=== PATIENT | female | born 1975 | race Caucasian/White ===

== ENCOUNTER 2017-10-19 14:32 | Outpatient (RCR) | payer OTHER, SELFPAY | END 2017-10-27 23:59 | LOC: NS 14:32 | PROVIDERS: Family Provider Physician Assistant; PCP Physician Assistant; Visit Provider Physician Assistant | DX: Z68.41 Body mass index [BMI] 40.0-44.9, adult (principal); Z71.3 Dietary counseling and surveillance | CPT/HCPCS: 97802 ==

== ENCOUNTER 2017-11-25 14:30 | Outpatient (RCR) | payer OTHER, SELFPAY | END 2017-11-27 23:59 | LOC: NS 14:30 | PROVIDERS: Family Provider Physician Assistant; PCP Physician Assistant; Visit Provider Physician Assistant | DX: Z68.41 Body mass index [BMI] 40.0-44.9, adult (principal); Z71.3 Dietary counseling and surveillance | CPT/HCPCS: 97803 ==

== ENCOUNTER → 2017-12-09 17:09 | Outpatient (CLI) | payer OTHER, SELFPAY | PROVIDERS: Visit Provider Urology | DX: N20.0 Calculus of kidney (principal); N39.0 Urinary tract infection, site not specified | CPT/HCPCS: 87077; 87086; 87088; 87186 ==

== ENCOUNTER → 2017-12-14 13:46 | Outpatient (CLI) | payer OTHER, SELFPAY ==
[2017-12-14 16:04] VITALS: BP 116/66; PULSE 66; RESP 16; TEMP 36.7; O2SAT 100
== END ==
PROVIDERS: Family Provider Physician Assistant; PCP Physician Assistant; Visit Provider Urology
DX: N39.0 Urinary tract infection, site not specified (principal)
CPT/HCPCS: 96365; J7050; A4216

== ENCOUNTER 2017-12-15 07:33 | Outpatient (CLI) | payer OTHER, SELFPAY ==
[2017-12-15 10:30] LABS: Gentamicin,Once Daily Trough < 0.2 ug/mL (<1.0)
[2017-12-15 14:16] VITALS: BP 144/71; PULSE 69; RESP 16; TEMP 37; O2SAT 100
== END 2017-12-15 09:35 | disposition home or self-care (01) ==
LOC: MEDOUTP 07:34 → MS3 07:35
PROVIDERS: Family Provider Physician Assistant; PCP Physician Assistant; Visit Provider Urology
DX: N39.0 Urinary tract infection, site not specified (principal)
CPT/HCPCS: 96365; 36569; 80170; J7050; A4216

== ENCOUNTER → 2017-12-16 14:54 | Outpatient (CLI) | payer OTHER, SELFPAY ==
[2017-12-16 15:02] VITALS: BP 132/69; PULSE 57; RESP 16; TEMP 37
== END ==
PROVIDERS: Family Provider Physician Assistant; PCP Physician Assistant; Visit Provider Urology
DX: N39.0 Urinary tract infection, site not specified (principal)
CPT/HCPCS: 96365; J7050; A4216

== ENCOUNTER 2017-12-17 13:05 | Day surgery (SDC) | payer OTHER, SELFPAY ==
--- NOTE | 2017-12-17 13:10 | RAD_ITS ---
STUDY: X-RAY - ABDOMEN/PELVIS REASON FOR EXAM: Female, 42 years old. History of kidney stones. Previous to be well. TECHNIQUE: Single AP view of the abdomen / pelvis. COMPARISON: None. FINDINGS: There is a moderate amount of colonic fecal material. There is a 1.3 cm rounded calcification overlying the medial aspect of the right mid kidney. This may represent a calculus in the right renal pelvis. Normal soft tissue structures. Normal visualized osseous structures. RAD/Abdomen Single View IMPRESSION: Findings suggestive of a 1.3 cm calculus in the right renal pelvis. Electronically Signed: Benjamin Thompson MD at 13:32 EDT Tel [phone], Service support ,
[2017-12-17 13:43] VITALS: BP 132/86; PULSE 66; RESP 16; TEMP 36.5; O2SAT 96; BMI 39.6
--- NOTE | 2017-12-18 09:48 | PCM.OPRPT ---
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 42-year-old female was taken back to the operating room after smooth induction of general anesthesia she was placed supine on the table her legs were placed in stirrups the vaginal area and urethra were prepped and draped in usual sterile fashion, I went into the bladder through the urethra with a 21 Tamazight rigid cystourethroscope and a 30? lens, I identified the right ureteral orifice and advanced a wire up the right ureter under fluoroscopic guidance could see the wire passed the stone. I then advanced a stent up into the right kidney past the stone I then pulled back and the wire and the stent coiled in the kidney and then coiled in the bladder the bladder was then drained and the patient was then positioned for shockwave lithotripsy. We focused the shockwave machine onto the stone in the right renal pelvis and proceeded with shockwave lithotripsy initially the stone broke up very nicely with fragmentation we did notice some premature ventricular contractions during treatment so we switched to gated treatment. We completed a total of 3000 shockwaves to the stone still could see some small fragments so we added another 500 shocks at a lower power for a total of 3500 shockwaves. At the end of the procedure only could see small little fragments should pass on their own will leave the stent in place with a string for extraction and she will follow-up next week in the office with a KUB and hopefully extract the stone and finished treatment of her E. coli with antibiotics. Type of Anesthesia:: General Drains: 6 fr x 26 cm stent right side. - Admit VTE Documentation VTE Present on Admission: No VTE Mechan Device Prophylaxis: SCD's VTE Pharm Prophylaxis ordered?: No Reason prophylaxis not ordered:: Treatment Not Indicated
== END 2017-12-17 19:39 | disposition home or self-care (01) ==
LOC: SDC 13:07 → AC 13:09
PROVIDERS: Family Provider Physician Assistant; PCP Physician Assistant; Visit Provider Urology
PROC: (CPT 50590; principal; 2017-12-17 14:55)
DX: N20.0 Calculus of kidney (principal); F41.9 Anxiety disorder, unspecified; F32.9 Major depressive disorder, single episode, unspecified; Z79.899 Other long term (current) drug therapy; I10 Essential (primary) hypertension; B96.20 Unspecified Escherichia coli [E. coli] as the cause of diseases classified elsewhere; I49.3 Ventricular premature depolarization
CPT/HCPCS: 50590; 74018; J7120; A4216; C1769; C2617; J2405

== ENCOUNTER 2017-12-18 12:42 | Outpatient (CLI) | payer OTHER, SELFPAY ==
--- NOTE | 2017-12-18 09:48 | PCM.OPRPT ---
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 42-year-old female was taken back to the operating room after smooth induction of general anesthesia she was placed supine on the table her legs were placed in stirrups the vaginal area and urethra were prepped and draped in usual sterile fashion, I went into the bladder through the urethra with a 21 Uzbek rigid cystourethroscope and a 30? lens, I identified the right ureteral orifice and advanced a wire up the right ureter under fluoroscopic guidance could see the wire passed the stone. I then advanced a stent up into the right kidney past the stone I then pulled back and the wire and the stent coiled in the kidney and then coiled in the bladder the bladder was then drained and the patient was then positioned for shockwave lithotripsy. We focused the shockwave machine onto the stone in the right renal pelvis and proceeded with shockwave lithotripsy initially the stone broke up very nicely with fragmentation we did notice some premature ventricular contractions during treatment so we switched to gated treatment. We completed a total of 3000 shockwaves to the stone still could see some small fragments so we added another 500 shocks at a lower power for a total of 3500 shockwaves. At the end of the procedure only could see small little fragments should pass on their own will leave the stent in place with a string for extraction and she will follow-up next week in the office with a KUB and hopefully extract the stone and finished treatment of her E. coli with antibiotics. Type of Anesthesia:: General Drains: 6 fr x 26 cm stent right side. - Admit VTE Documentation VTE Present on Admission: No VTE Mechan Device Prophylaxis: SCD's VTE Pharm Prophylaxis ordered?: No Reason prophylaxis not ordered:: Treatment Not Indicated
[2017-12-18 13:05] VITALS: BP 118/64; PULSE 66; RESP 16; TEMP 37.1; O2SAT 95
[2017-12-18] MEDS: 0.9% NaCl IVPB Med Flush (250 mL) 15 ML IV (13:12)
== END 2017-12-18 14:02 | disposition home or self-care (01) ==
LOC: MEDOUTP 12:43 → MS3 12:48
PROVIDERS: Family Provider Physician Assistant; PCP Physician Assistant; Visit Provider Urology
DX: N39.0 Urinary tract infection, site not specified (principal)
CPT/HCPCS: 96365; J7050

== ENCOUNTER 2017-12-19 12:09 | Outpatient (CLI) | payer OTHER, SELFPAY ==
[2017-12-19] MEDS: 0.9% NaCl IVPB Med Flush (250 mL) 15 ML IV (12:30)
[2017-12-19] MEDS: 0.9% NaCl PICC Flush IV ×2 (12:30→13:36)
[2017-12-19 12:35] VITALS: BP 110/59; PULSE 54; RESP 16; TEMP 36.6; O2SAT 95
--- NOTE | 2017-12-19 13:38 | NURSING ---
PICC line dressing changed d/t the edges of the tegaderm where rolling up.
== END 2017-12-19 13:35 | disposition home or self-care (01) ==
LOC: MS3OUT 12:10 → MS3 12:11 → MS3OUT 12:11 → MS3 12:40
PROVIDERS: Family Provider Physician Assistant; PCP Physician Assistant; Visit Provider Urology
DX: N39.0 Urinary tract infection, site not specified (principal)
CPT/HCPCS: 96365; J7050; A4216

== ENCOUNTER → 2017-12-20 08:32 | Outpatient (CLI) | payer OTHER, SELFPAY ==
[2017-12-20 08:39] VITALS: BP 125/80; PULSE 63; RESP 16; TEMP 36; O2SAT 99; BMI 38.7
== END ==
PROVIDERS: Family Provider Physician Assistant; PCP Physician Assistant; Visit Provider Urology
DX: N39.0 Urinary tract infection, site not specified (principal)
CPT/HCPCS: 96365; J7050; A4216

== ENCOUNTER → 2017-12-23 13:38 | Outpatient (CLI) | payer OTHER, SELFPAY ==
--- NOTE | 2017-12-23 13:40 | RAD_ITS ---
STUDY: X-RAY - ABDOMEN/PELVIS REASON FOR EXAM: Female, 42 years old. Follow-up of kidney stone TECHNIQUE: Single AP view of the abdomen / pelvis. COMPARISON: Previous study of 12/17/2017 FINDINGS: The lung bases are not in the field of view of the study. There is an unremarkable bowel gas pattern. There is no demonstrated free abdominal air. There is a 10 mm calcification overlying the midpole of the right kidney consistent with nephrolithiasis. There is a left ureteral stent appearing in adequate position. Normal soft tissue structures. Normal visualized osseous structures. RAD/Abdomen Single View IMPRESSION: 10 mm calcification overlying the midpole of the right kidney consistent with nephrolithiasis. This appears similar to the prior study. There is a left-sided ureteral stent appearing in adequate position. Electronically Signed: Jason García MD at 22:55 EDT , Service support ,
== END ==
LOC: RAD.FUTURE 13:39 → MEDOUTP 14:39
PROVIDERS: Family Provider Physician Assistant; PCP Physician Assistant; Visit Provider Nurse Practitioner Adult Health
DX: N20.0 Calculus of kidney (principal)
CPT/HCPCS: 74018

== ENCOUNTER 2017-12-24 11:30 | Outpatient (RCR) | payer OTHER, SELFPAY | END 2017-12-27 23:59 | LOC: NS 11:30 | PROVIDERS: Family Provider Physician Assistant; PCP Physician Assistant; Visit Provider Physician Assistant | DX: Z68.41 Body mass index [BMI] 40.0-44.9, adult (principal); Z71.3 Dietary counseling and surveillance | CPT/HCPCS: 97803 ==

== ENCOUNTER 2018-01-04 11:31 | Outpatient (RCR) | payer OTHER, SELFPAY | END 2018-01-27 23:59 | LOC: NS 11:31 | PROVIDERS: Family Provider Physician Assistant; PCP Physician Assistant; Visit Provider Physician Assistant | DX: Z68.41 Body mass index [BMI] 40.0-44.9, adult (principal); Z71.3 Dietary counseling and surveillance | CPT/HCPCS: 97803 ==

== ENCOUNTER → 2018-01-10 16:37 | Outpatient (CLI) | payer OTHER, SELFPAY | PROVIDERS: Family Provider Physician Assistant; PCP Physician Assistant; Visit Provider Urology | DX: R82.99 Other abnormal findings in urine (principal) | CPT/HCPCS: 87086; 87088 ==

== ENCOUNTER 2018-02-24 14:00 | Outpatient (RCR) | payer OTHER, SELFPAY | END 2018-02-26 23:59 | LOC: NS 14:00 | PROVIDERS: Family Provider Physician Assistant; PCP Physician Assistant; Visit Provider Physician Assistant | DX: Z71.3 Dietary counseling and surveillance (principal); Z68.41 Body mass index [BMI] 40.0-44.9, adult | CPT/HCPCS: 97803 ==

== ENCOUNTER 2018-03-10 11:25 | Outpatient (RCR) | payer OTHER, SELFPAY | END 2018-03-29 23:59 | LOC: NS 11:25 | PROVIDERS: Family Provider Physician Assistant; PCP Physician Assistant; Visit Provider Physician Assistant | DX: Z68.41 Body mass index [BMI] 40.0-44.9, adult (principal); Z71.3 Dietary counseling and surveillance | CPT/HCPCS: 97803 ==

== ENCOUNTER 2018-03-30 13:33 | Outpatient (RCR) | payer OTHER, SELFPAY | END 2018-04-20 23:59 | disposition home or self-care (01) | LOC: NS 13:33 | PROVIDERS: Family Provider Physician Assistant; PCP Physician Assistant; Visit Provider Physician Assistant | DX: Z68.41 Body mass index [BMI] 40.0-44.9, adult (principal); Z71.3 Dietary counseling and surveillance | CPT/HCPCS: 97803 ==

== ENCOUNTER → 2018-04-20 15:29 | Outpatient (CLI) | payer OTHER, SELFPAY | PROVIDERS: Family Provider Physician Assistant; PCP Physician Assistant; Visit Provider Nurse Practitioner Adult Health | DX: N20.0 Calculus of kidney (principal) | CPT/HCPCS: 74018 ==

== ENCOUNTER → 2018-04-21 15:52 | Outpatient (CLI) | payer OTHER, SELFPAY | PROVIDERS: Visit Provider Urology | DX: R82.99 Other abnormal findings in urine (principal) | CPT/HCPCS: 87086; 87088 ==

== ENCOUNTER → 2018-04-27 08:25 | Outpatient (CLI) | payer OTHER, SELFPAY | PROVIDERS: Family Provider Physician Assistant; PCP Physician Assistant; Visit Provider Physician Assistant | DX: Z12.31 Encounter for screening mammogram for malignant neoplasm of breast (principal) | CPT/HCPCS: 77063; 77067 ==

== ENCOUNTER → 2018-05-19 17:43 | Outpatient (CLI) | payer OTHER, SELFPAY | PROVIDERS: Family Provider Physician Assistant; PCP Physician Assistant; Visit Provider Urology | DX: R30.0 Dysuria (principal); R31.9 Hematuria, unspecified | CPT/HCPCS: 87086; 87088 ==

== ENCOUNTER 2018-07-18 11:25 | Outpatient (RCR) | payer OTHER, SELFPAY | END 2018-07-29 23:59 | LOC: NS 11:25 | PROVIDERS: Family Provider Physician Assistant; PCP Physician Assistant; Visit Provider Family Medicine | DX: E66.9 Obesity, unspecified (principal); Z68.37 Body mass index [BMI] 37.0-37.9, adult; Z71.3 Dietary counseling and surveillance | CPT/HCPCS: 97802 ==

== ENCOUNTER 2018-08-08 15:33 | Outpatient (RCR) | payer OTHER, SELFPAY | END 2018-08-29 23:59 | LOC: NS 15:33 | PROVIDERS: Family Provider Physician Assistant; PCP Physician Assistant; Visit Provider Family Medicine | DX: E66.9 Obesity, unspecified (principal); Z68.37 Body mass index [BMI] 37.0-37.9, adult; Z71.3 Dietary counseling and surveillance | CPT/HCPCS: 97803 ==

== ENCOUNTER 2018-09-19 10:00 | Outpatient (RCR) | payer OTHER, SELFPAY | END 2018-09-29 23:59 | LOC: NS 10:00 | PROVIDERS: Family Provider Physician Assistant; PCP Physician Assistant; Visit Provider Family Medicine | DX: E66.9 Obesity, unspecified (principal); Z68.37 Body mass index [BMI] 37.0-37.9, adult; Z71.3 Dietary counseling and surveillance | CPT/HCPCS: 97803 ==

== ENCOUNTER 2018-10-19 11:30 | Outpatient (RCR) | payer OTHER, SELFPAY | END 2018-10-27 23:59 | LOC: NS 11:30 | PROVIDERS: Family Provider Physician Assistant; PCP Physician Assistant; Visit Provider Family Medicine | DX: E66.9 Obesity, unspecified (principal); Z68.37 Body mass index [BMI] 37.0-37.9, adult; Z71.3 Dietary counseling and surveillance | CPT/HCPCS: 97803 ==

== ENCOUNTER 2018-11-23 13:00 | Outpatient (RCR) | payer OTHER, SELFPAY | END 2018-11-27 23:59 | LOC: NS 13:00 | PROVIDERS: Family Provider Physician Assistant; PCP Physician Assistant; Visit Provider Family Medicine | DX: E66.9 Obesity, unspecified (principal); Z68.37 Body mass index [BMI] 37.0-37.9, adult; Z71.3 Dietary counseling and surveillance | CPT/HCPCS: 97803 ==

== ENCOUNTER 2018-12-21 09:45 | Outpatient (RCR) | payer OTHER, SELFPAY | END 2018-12-27 23:59 | LOC: NS 09:45 | PROVIDERS: Family Provider Physician Assistant; PCP Physician Assistant; Visit Provider Family Medicine | DX: E66.9 Obesity, unspecified (principal); Z68.37 Body mass index [BMI] 37.0-37.9, adult; Z71.3 Dietary counseling and surveillance | CPT/HCPCS: 97803 ==

== ENCOUNTER 2019-01-04 14:06 | Outpatient (RCR) | payer OTHER, SELFPAY | END 2019-01-04 23:59 | disposition home or self-care (01) | LOC: NS 14:06 | PROVIDERS: Family Provider Physician Assistant; PCP Physician Assistant; Visit Provider Family Medicine | DX: E66.9 Obesity, unspecified (principal); Z68.37 Body mass index [BMI] 37.0-37.9, adult; Z71.3 Dietary counseling and surveillance | CPT/HCPCS: 97803 ==

== ENCOUNTER → 2019-05-25 11:06 | Outpatient (CLI) | payer OTHER, SELFPAY ==
--- NOTE | 2019-05-24 13:06 | BI_ITS ---
MAMMOGRAPHY - BILATERAL SCREENING REASON FOR EXAM: Female, 44 years old. Routine annual screening examination. PERTINENT HISTORY: Non-contributory. TECHNIQUE: Digital bilateral breast kassidy (3D mammographic acquisition) in the CC and MLO projections. 2-D mediolateral oblique (MLO) and craniocaudad (CC) views of both breasts were obtained. CAD: Full Field Digital Mammography with Computer Added Detection was performed. COMPARISON: Comparison is made with prior study dated April 27, 2018. FINDINGS: Breast Composition: There are scattered areas of fibroglandular density. There are no dominant masses or suspicious calcifications. No other significant abnormalities are identified. There has been no significant change since the prior study. BI/SCREEN MAMM (CAD) W/KASSIDY BILAT IMPRESSION: Stable bilateral screening mammogram. Yearly follow-up mammogram recommended. (A) ASSESSMENT CATEGORY: BIRADS Category 1: Negative. A letter regarding these results will be sent to the patient by the facility within 30 days. Approximately 10% of breast cancers are not detected by mammography. A normal mammogram should not delay biopsy of a clinically suspicious abnormality. [id number] Electronically Signed: Benjamin Thompson, at 15:26 EDT , Service support ,
== END ==
PROVIDERS: Family Provider Physician Assistant; PCP Physician Assistant; Referring Provider Nurse Practitioner Family; Visit Provider Nurse Practitioner Family
DX: Z12.31 Encounter for screening mammogram for malignant neoplasm of breast (principal)
CPT/HCPCS: 77063; 77067

== ENCOUNTER → 2019-08-04 13:34 | Outpatient (CLI) | payer OTHER, SELFPAY ==
[2019-08-04 14:08] LABS: Hematocrit 42.3 % (37-47); Hemoglobin 14.5 g/dL (12.0-15.0); Mean Corp Hgb Conc 34.3 g/dL (32-36); Mean Corpuscular Hgb 29.7 pg (27.0-32.0); Mean Corpuscular Volume 86.5 fL (81-99); Mean Platelet Vol. 9.7 fl (6.2-12.0); Platelet Count 257 K/mm3 (150-450); RBC Distribution Width CV 11.9 % (11.6-14.6); RBC Distribution Width SD 37.7 fl (35.1-43.9); Red Blood Count 4.89 M/mm3 (4.2-5.4); White Blood Count 5.8 K/mm3 (4.4-11.0)
[2019-08-04 14:24] LABS: Anion Gap 6 (5-15); BUN 15 mg/dL (7-18); Calcium,Total 9.2 mg/dL (8.5-10.1); Chloride 108 mmol/L (98-107); Creatinine, Serum 0.88 mg/dL (0.55-1.02); D-Dimer Quantitative (DVT/PE) 0.35 FEU/ug/m (0.27-0.49); EST Glomerular Filtration Rate 74 mL/min (>60); Est Glom Filt Rate - Afr Amer 89 mL/min (>60); Glucose 100 mg/dL (74-106); Partial Thromboplast Time 31.8 Seconds (24.1-36.2); Potassium 3.9 mmol/L (3.5-5.1); Prothrombin Time (Protime)PT. 13.4 SECONDS (11.7-14.9); Sodium Level 140 mmol/L (136-145)
--- NOTE | 2019-08-04 14:48 | EKG12_ITS ---
Test Reason : CP Blood Pressure : / mmHG Vent. Rate : 049 BPM Atrial Rate : 049 BPM P-R Int : 154 ms QRS Dur : 102 ms QT Int : 434 ms P-R-T Axes : 022 011 015 degrees QTc Int : 392 ms Marked sinus bradycardia Abnormal ECG Confirmed by SOURAV HILLIARD, KEIKO ([id number]), editor magazine KIRILL CHANCE ([id number]) on 08/06/2019 12:08:13 PM Referred By: Hari Moss Confirmed By:MARIIA BENJAMIN MD
--- NOTE | 2019-08-04 14:49 | RAD_ITS ---
HISTORY: CHEST PAIN ADDITIONAL HISTORY: None provided. COMPARISON: None TECHNIQUE: Frontal and lateral chest radiographs. Number of images including paperwork: 2 FINDINGS: LUNGS AND PLEURA: No consolidation, mass or pleural effusion. CARDIAC SILHOUETTE: Unremarkable. MEDIASTINUM AND JOHN: Unremarkable. UPPER ABDOMEN: Right upper quadrant surgical clips. SKELETON AND SOFT TISSUES: No acute findings. Degenerative changes. OTHER DEVICES AND HARDWARE: None. RAD/Chest PA and Lateral IMPRESSION: No acute cardiopulmonary abnormality. at 2322 Reported and signed by: Celsa Nieto MD Electronically Signed: Celsa Nieto MD at 23:22 EST Tel , Service support ,
== END ==
PROVIDERS: Family Provider Physician Assistant; PCP Physician Assistant; Referring Provider Physician Assistant; Visit Provider Physician Assistant
DX: R07.89 Other chest pain (principal)
CPT/HCPCS: 36415; 71046; 80048; 84484; 85027; 85379; 85610; 85730; 93005

== ENCOUNTER → 2019-10-03 15:02 | Outpatient (CLI) | payer OTHER, SELFPAY ==
[2019-10-03 16:00] LABS: Hematocrit 43.9 % (37-47); Mean Corp Hgb Conc 34.2 g/dL (32-36); Mean Corpuscular Hgb 29.4 pg (27.0-32.0); Mean Corpuscular Volume 86.1 fL (81-99); Mean Platelet Vol. 9.8 fl (6.2-12.0); Platelet Count 221 K/mm3 (150-450); RBC Distribution Width CV 11.7 % (11.6-14.6); RBC Distribution Width SD 37.1 fl (35.1-43.9); White Blood Count 6.1 K/mm3 (4.4-11.0)
[2019-10-03 16:35] LABS: Anion Gap 7 (5-15); BUN 14 mg/dL (7-18); BUN/Creat Ratio 14.8 RATIO (10-20); Calcium,Total 9.6 mg/dL (8.5-10.1); Chloride 104 mmol/L (98-107); Creatinine, Serum 0.95 mg/dL (0.55-1.02); EST Glomerular Filtration Rate 68 mL/min (>60); Est Glom Filt Rate - Afr Amer 82 mL/min (>60); Glucose 102 mg/dL (74-106); Potassium 3.7 mmol/L (3.5-5.1); Sodium Level 136 mmol/L (136-145)
== END ==
PROVIDERS: PCP Physician Assistant; Referring Provider Physician Assistant; Visit Provider Physician Assistant
DX: R30.0 Dysuria (principal); R50.9 Fever, unspecified; R68.89 Other general symptoms and signs
CPT/HCPCS: 36415; 80048; 85027; 87086; 87088; 87186; 87632

== ENCOUNTER → 2020-01-18 06:03 | Outpatient (CLI) | payer OTHER, SELFPAY ==
[2020-01-18 07:43] LABS: Anion Gap 6 (5-15); BUN 18 mg/dL (7-18); BUN/Creat Ratio 21.9 RATIO (10-20); Calcium,Total 9.4 mg/dL (8.5-10.1); Chloride 103 mmol/L (98-107); Creatinine, Serum 0.82 mg/dL (0.55-1.02); EST Glomerular Filtration Rate 80 mL/min (>60); Est Glom Filt Rate - Afr Amer 97 mL/min (>60); Glucose 113 mg/dL (74-106); Potassium 3.7 mmol/L (3.5-5.1); Sodium Level 137 mmol/L (136-145)
[2020-09-10 15:14] VITALS: BMI 39.2
== END ==
PROVIDERS: PCP Physician Assistant; Referring Provider Registered Nurse; Visit Provider Registered Nurse
DX: I10 Essential (primary) hypertension (principal)
CPT/HCPCS: 36415; 80048

== ENCOUNTER → 2020-03-15 15:01 | Outpatient (CLI) | payer OTHER, SELFPAY ==
[2020-03-15 17:08] LABS: Bacteria 0 SEEN /hpf (None Seen); Mucous, Urine 0 SEEN /hpf (<or=2+); Red Blood Cells-Urine 0 SEEN /hpf (0-5)
[2020-03-15 17:30] LABS: Color, Urine Yellow (Yellow); Glucose, Dipstick Normal (Normal); Ketone-Dipstick Negative (Negative); Leukocyte Esterase-Dipstick 25 /ul (Negative); Nitrite-Dipstick Negative (Negative); Occult Blood-Urine Negative /ul (Negative); Protein-Dipstick Negative (Negative); Urine Bilirubin Dipstick Negative (Negative); Urine Clarity Clear (Clear); Urine Urobilinogen Normal (Normal)
[2020-03-15 17:51] LABS: Squamous Epithelial Cells - UA 0-5 SEEN /hpf (5-10); White Blood Cells 0-5 SEEN /hpf (0-5)
== END ==
PROVIDERS: PCP Physician Assistant; Referring Provider Registered Nurse; Visit Provider Registered Nurse
DX: R39.9 Unspecified symptoms and signs involving the genitourinary system (principal)
CPT/HCPCS: 81001; 87086; 87088

== ENCOUNTER → 2020-06-12 14:06 | Outpatient (CLI) | payer OTHER, SELFPAY ==
--- NOTE | 2020-06-12 14:08 | BI_ITS ---
MAMMOGRAPHY - BILATERAL SCREENING REASON FOR EXAM: Female, 45 years old. Routine annual screening examination. PERTINENT HISTORY: Non-contributory. TECHNIQUE: Digital bilateral breast kassidy (3D mammographic acquisition) in the CC and MLO projections. 2-D mediolateral oblique (MLO) and craniocaudad (CC) views of both breasts were obtained. CAD: Full Field Digital Mammography with Computer Added Detection was performed. COMPARISON: Comparison is made with prior examination dated 05/24/2019 and 04/27/2018. FINDINGS: Breast Composition: There are scattered areas of fibroglandular density. There are no dominant masses or suspicious calcifications. No other significant abnormalities are identified. There has been no significant change since the prior study. BI/SCREEN MAMM (CAD) W/KASSIDY BILAT IMPRESSION: Stable bilateral screening mammogram. Yearly follow-up mammogram recommended. (A) ASSESSMENT CATEGORY: BIRADS Category 1: Negative. A letter regarding these results will be sent to the patient by the facility within 30 days. Approximately 10% of breast cancers are not detected by mammography. A normal mammogram should not delay biopsy of a clinically suspicious abnormality. [id number] Electronically Signed: Benjamin Thompson, at 14:53 EDT , Service support ,
== END ==
PROVIDERS: PCP Physician Assistant; Referring Provider Registered Nurse; Visit Provider Registered Nurse
DX: Z12.31 Encounter for screening mammogram for malignant neoplasm of breast (principal)
CPT/HCPCS: 77063; 77067

== ENCOUNTER 2020-07-09 10:45 | Outpatient (RCR) | payer OTHER, SELFPAY ==
--- NOTE | 2019-10-31 16:38 | MASS.EVAL ---
Massage Therapy Evaluation: Initial Evaluation Date: 10/31/2019 /Age: 07 1975, 44 Diagnosis: Back pain Goals: Decrease pain Decrease muscle tension Promote relaxation Assessment: Elizabeth is a good candidate for massage at this time. She responded well to her first treatment. Plan: To be seen one time per month or PRN for a total of 10 one hour sessions.
--- NOTE | 2020-08-15 08:56 | DS.PCM_ITS ---
Massage Therapy Discharge Summary: Initial Evaluation Date: 10/31/2019 Diagnosis: Back Pain No. of Visits: 6 Date of last visit: 07/09/2020 This patient is being discharged from our care at the [facility]. Thank you, Miracle Phillip LMT
== END 2020-07-09 19:00 | disposition home or self-care (01) ==
LOC: MASS 10:45
PROVIDERS: PCP Physician Assistant; Referring Provider Nurse Practitioner Family; Visit Provider Nurse Practitioner Family
DX: M54.2 Cervicalgia (principal)
CPT/HCPCS: 97124

== ENCOUNTER → 2020-09-20 13:58 | Outpatient (CLI) | payer OTHER, SELFPAY ==
[2020-09-10 15:14] VITALS: BMI 39.2
[2020-09-20 15:11] LABS: Bacteria 0 SEEN /hpf (None Seen); Mucous, Urine 0 SEEN /hpf (<or=2+)
[2020-09-20 17:28] LABS: Color, Urine Yellow (Yellow); Glucose, Dipstick Normal (Normal); Ketone-Dipstick Negative (Negative); Leukocyte Esterase-Dipstick 25 /ul (Negative); Nitrite-Dipstick Negative (Negative); Occult Blood-Urine 25 /ul (Negative); Protein-Dipstick 15 mg/dl (Negative); Urine Bilirubin Dipstick Negative (Negative); Urine Clarity Sl. Cloudy (Clear); Urine Urobilinogen Normal (Normal)
[2020-09-20 17:49] LABS: Squamous Epithelial Cells - UA 10-25 SEEN /hpf (5-10); White Blood Cells 5-10 SEEN /hpf (0-5)
[2020-09-20 17:51] LABS: Red Blood Cells-Urine 0-5 SEEN /hpf (0-5)
[2020-09-20 17:53] LABS: Renal Epithelial Cells 0-5 SEEN /hpf (0-5)
== END ==
PROVIDERS: PCP Physician Assistant; Referring Provider Registered Nurse; Visit Provider Registered Nurse
DX: R30.0 Dysuria (principal)
CPT/HCPCS: 81001

== ENCOUNTER → 2020-10-02 14:44 | Outpatient (CLI) | payer OTHER, SELFPAY ==
[2020-09-10 15:14] VITALS: BMI 39.2
[2020-10-02 14:49] LABS: Bacteria 0 SEEN /hpf (None Seen); Mucous, Urine 0 SEEN /hpf (<or=2+); Red Blood Cells-Urine 0 SEEN /hpf (0-5)
[2020-10-02 15:18] LABS: Color, Urine Yellow (Yellow); Glucose, Dipstick Normal (Normal); Ketone-Dipstick Negative (Negative); Leukocyte Esterase-Dipstick Negative /ul (Negative); Nitrite-Dipstick Negative (Negative); Occult Blood-Urine Negative /ul (Negative); Protein-Dipstick Negative (Negative); Urine Bilirubin Dipstick Negative (Negative); Urine Clarity Sl. Cloudy (Clear); Urine Urobilinogen Normal (Normal); Urine pH 6.5 (5.0 - 8.0)
[2020-10-02 15:38] LABS: Squamous Epithelial Cells - UA 0-5 SEEN /hpf (5-10)
[2020-10-02 15:39] LABS: White Blood Cells 0-5 SEEN /hpf (0-5)
== END ==
PROVIDERS: PCP Physician Assistant; Visit Provider Registered Nurse
DX: R30.0 Dysuria (principal)
CPT/HCPCS: 81001; 87086; 87088

== ENCOUNTER → 2020-10-18 08:14 | Outpatient (CLI) | payer OTHER, SELFPAY ==
[2020-09-10 15:14] VITALS: BMI 39.2
[2020-10-18 09:22] LABS: Anion Gap 5 (5-15); BUN 21 mg/dL (7-18); BUN/Creat Ratio 22.8 RATIO (10-20); Chloride 108 mmol/L (98-107); Creatinine, Serum 0.92 mg/dL (0.55-1.02); EST Glomerular Filtration Rate 70 mL/min (>60); Est Glom Filt Rate - Afr Amer 84 mL/min (>60); Follicle Stimulating Hormone 21.6 mIU/mL; Glucose 115 mg/dL (74-106); Potassium 4.3 mmol/L (3.5-5.1); Sodium Level 138 mmol/L (136-145); Thyroid Stim Hormone (TSH) 0.87 uIU/mL (0.358-3.74)
[2020-10-22 03:06] LABS: DHEA Sulfate 96.2 ug/dL (41.2-243.7)
[2020-10-22 09:26] LABS: Estrogen, Total, Serum 75 pg/mL (.)
[2020-10-23 12:18] LABS: 17-Hydroxyprogesterone 16 ng/dL (.)
== END ==
PROVIDERS: PCP Physician Assistant; Referring Provider Registered Nurse; Visit Provider Registered Nurse
DX: L68.0 Hirsutism (principal); E34.9 Endocrine disorder, unspecified; N95.9 Unspecified menopausal and perimenopausal disorder; Z84.2 Family history of other diseases of the genitourinary system; R61 Generalized hyperhidrosis
CPT/HCPCS: 36415; 80048; 82627; 82672; 83001; 83498; 84403; 84443; 82626

== ENCOUNTER → 2020-10-23 15:09 | Outpatient (CLI) | payer OTHER, SELFPAY ==
[2020-09-10 15:14] VITALS: BMI 39.2
--- NOTE | 2020-10-23 15:15 | US_ITS ---
STUDY: ULTRASOUND TRANSVAGINAL CLINICAL: Female, 45 years old. PCOS TECHNIQUE: Transvaginal COMPARISON: None. FINDINGS: Not visualized consistent with hysterectomy Normal right ovary, measuring 3.1 x 3.1 x 2.8 cm. There are multiple follicles without a dominant cyst. Normal left ovary, measuring 3.2 x 2 x 1.7 cm. There are multiple follicles with a dominant cyst measuring 1.4 x 1.3 x 1.4 cm There is no free fluid in the pelvis. US/Transvaginal Non- IMPRESSION: Small left ovarian cyst measuring 1.4 x 1.3 x 1.4 cm status post hysterectomy Electronically Signed: Lorne Bernal MD at 17:39 EST , Service support ,
== END ==
PROVIDERS: PCP Physician Assistant; Visit Provider Registered Nurse
DX: L68.0 Hirsutism (principal); E28.2 Polycystic ovarian syndrome
CPT/HCPCS: 76830

== ENCOUNTER 2020-12-10 10:45 | Outpatient (RCR) | payer OTHER, SELFPAY ==
--- NOTE | 2020-09-09 15:03 | MASS.EVAL ---
Massage Therapy Evaluation: Initial Evaluation Date: 09/03/2020 SUBJECTIVE: Elizabeth is a 45 year old female who was referred to the [facility] facility for a massotherapy evaluation by Kendy Cohen CNP with the diagnosis of neck pain. She presents today with the symptoms of pain, stiffness and tension in the neck, mid back, low back and hips. Elizabeth reports having a past medical history of radiating pain in her neck and right shoulder blade region. She reports having minimal improvement with exercise and stretching over the last few months. OBJECTIVE: Upon observation Elizabeth has some posture issues with her head and shoulders forward from the neutral position in sitting and standing. After examination and palpation, I found Elizabeth to have high muscle tension with tenderness and myofascial restrictions in her sub occipitals, levator scapulae, trapezius, rhomboids, scalenes, and thoracic paraspinals. Her QL?s, lumbar paraspinals, piriformis, glute medius and minimus all were very tight with fascial restrictions, tender points and trigger points. The first treatment consisted of a one hour massage to her upper body with myofascial release, muscle stripping, trigger point compression techniques, and cervical manual traction. ASSESSMENT: I feel that Elizabeth is a good candidate for massotherapy at this time. She had a favorable response to the first treatment with reduction in her muscle aches, pain and tension. She also had improvement in her cervical flexibility and low back flexibility. PLAN: The plan of care was reviewed with the patient. The patient is to be seen on an as needed basis for a total of ten sessions with the recommendation of once every month for a one hour treatment.
--- NOTE | 2021-08-16 12:42 | MASS.DISCH ---
Massage Therapy Discharge Summary: Discharge Date: 08/16/2021 Elizabeth was seen for a massotherapy evaluation on 09/03/2020 with the diagnosis of neck pain. She was treated with four sessions of massage therapy consisting of deep pressure soft tissue techniques, myofascial release and trigger point compression to his cervical, thoracic, lower back and hips. Elizabeth responded well to the therapy by reporting decreased tension and pain throughout her neck, shoulders, lower back, lower extremities and hips. Her goals for therapy were met throughout the treatment sessions. At this time this patient is being discharged from our care at [facility] facility.
== END 2020-12-10 19:00 | disposition home or self-care (01) ==
LOC: MASS 10:45
PROVIDERS: PCP Physician Assistant; Referring Provider Physician Assistant; Visit Provider Physician Assistant
DX: Z00.00 Encounter for general adult medical examination without abnormal findings (principal)
CPT/HCPCS: 97124

== ENCOUNTER 2021-03-20 14:45 | Outpatient (CLI) | payer OTHER, SELFPAY ==
[2021-03-20 09:29] VITALS: BMI 38.9
[2021-03-20 15:02] VITALS: BP 174/82; PULSE 79; RESP 16; TEMP 36.7; O2SAT 97; BMI 38.0
[2021-03-20 15:10] VITALS: BP 131/81; PULSE 69; RESP 16; TEMP 36.9; O2SAT 98
[2021-03-20 15:35] VITALS: BP 132/82; PULSE 70; RESP 16; TEMP 36.7; O2SAT 98
[2021-03-20 15:55] VITALS: BP 133/80; PULSE 69; RESP 16; TEMP 36.7; O2SAT 98
[2021-03-20 16:30] VITALS: BP 128/78; PULSE 71; RESP 16; TEMP 36.6; O2SAT 99
[2021-03-20 16:51] VITALS: BP 142/70; PULSE 70; RESP 16; TEMP 36.9
== END 2021-03-20 17:00 | disposition home or self-care (01) ==
LOC: ICUOUT 14:45
PROVIDERS: PCP Physician Assistant; Referring Provider Nurse Practitioner Acute Care; Visit Provider Nurse Practitioner Acute Care
DX: U07.1 COVID-19 (principal)
CPT/HCPCS: M0243; Q0244

== ENCOUNTER → 2021-06-05 12:47 | Outpatient (CLI) | payer OTHER, SELFPAY ==
--- NOTE | 2021-06-05 12:56 | RAD_ITS ---
STUDY: X-RAY - PELVIS AND RIGHT HIP REASON FOR EXAM: Female, 46 years old. Pain TECHNIQUE: XR Hip Unilateral with Pelvis when performed; 2-3 Views COMPARISON: None. FINDINGS: There is a non-specific bowel gas pattern. Normal visualized soft tissue structures. Normal bilateral iliac wings, sacroiliac joints and visualized sacrum. Normal bilateral superior and inferior pubic rami. Normal pubic symphysis. Normal bilateral ischial tuberosities. Normal visualized femoral head. Normal acetabulum. Normal hip joint. RAD/HIP, UNI W/ Pelvis 2-3 Views IMPRESSION: Normal x-ray examination of the pelvis and hip. Electronically Signed: Magnus Trevizo MD at 21:48 EDT , Service support ,
== END ==
PROVIDERS: PCP Physician Assistant; Referring Provider Orthopaedic Surgery; Visit Provider Orthopaedic Surgery
DX: M25.551 Pain in right hip (principal)
CPT/HCPCS: 73502

== ENCOUNTER → 2021-06-17 16:13 | Outpatient (CLI) | payer OTHER, SELFPAY ==
--- NOTE | 2021-06-17 16:15 | BI_ITS ---
MAMMOGRAPHY - BILATERAL SCREENING REASON FOR EXAM: Female, 46 years old. Routine annual screening examination. PERTINENT HISTORY: Non-contributory. TECHNIQUE: Digital bilateral breast kassidy (3D mammographic acquisition) in the CC and MLO projections. 2-D mediolateral oblique (MLO) and craniocaudad (CC) views of both breasts were obtained. CAD: Full Field Digital Mammography with Computer Added Detection was performed. COMPARISON: Comparison is made with prior study 06/12/2020 05/24/2019. FINDINGS: Breast Composition: There are scattered areas of fibroglandular density. There are no dominant masses or suspicious calcifications. No other significant abnormalities are identified. There has been no significant change since the prior study. BI/SCRN MAMM (CAD)W/KASSIDY BILAT IMPRESSION: Stable bilateral screening mammogram. Yearly follow-up mammogram recommended. (A) ASSESSMENT CATEGORY: BIRADS Category 1: Negative. A letter regarding these results will be sent to the patient by the facility within 30 days. Approximately 10% of breast cancers are not detected by mammography. A normal mammogram should not delay biopsy of a clinically suspicious abnormality. [id number] Electronically Signed: Benjamin Thompson MD at 8:33 EDT , Service support ,
== END ==
PROVIDERS: PCP Physician Assistant; Visit Provider Registered Nurse
DX: Z12.31 Encounter for screening mammogram for malignant neoplasm of breast (principal)
CPT/HCPCS: 77063; 77067

== ENCOUNTER 2021-06-30 12:00 | Outpatient (RCR) | payer OTHER, SELFPAY ==
--- NOTE | 2021-06-17 14:11 | HP.PTEVAL_ITS ---
Patient's Visit Information CHRISTIN BABB is a 46 year old F referred to Physical Therapy by Dr. Alejandro Graham DO with a diagnosis of R HIP LABRAL STRAIN. Date of Evaluation: 06/17/21 Physical Therapist: Denia Hall PT, Cert MDT - Visit Plan Frequency: 2-3x /Week Duration: 4-6 Weeks Plan: POSTURE CORRECTION/STRENGTHENING, INSTRUCTION IN APPROPRIATE BODY MECHANICS AND ACTIVITY MODIFICATIONS. DLS STARTING WITH A NEUTRAL SPINE PROGRESSING ROM TOLERATED. PIOTR LE ROM, STRETCHING AND STRENGTHENING. HEP INSTRUCTION. Exercises to Consider: Standing Hip Abduction with a Resistance Band. Single Leg Bridge. Partial Squats with a Resistance Band. Single Leg Balance on Unstable Surface. Kneeling Hip Flexor Stretch. Clamshells - Subjective Work/Leisure: MRI AND [employer] AT [facility] AND PRN FOR [facility]. MOSTLY STANDING AND WALKING FOR CT AND A LOT OF SITTING FOR MRI. NOT CURRENTLY OFF WORK. Disability: NO. Present symptoms: RIGHT GROIN PAIN. LOW BACK PAIN. NO LE NUMBNESS OR TINGLING. Present since: APPROX JANUARY 2021. STARTED SORE AND THEN IN FEBRUARY SUDDENLY WORSE WHEN STRADLING PARAPALEGIC. Pain Scale: WORST 8/10, LEAST 2/10. Currently: 2/10. Commenced as a result of: NO APPARENT REASON - CAME ON GRADUALLY. Symptoms at onset: RIGHT GROIN PAIN. Worse: EXTERNALLY ROTATING RIGHT HIP, TRYING TO PUT SHOE AND SOCK ON, GETTING IN/OUT OF CAR, HIP ADD IN STANDING FOR THINGS LIKE GETTING OUT OF THE CAR, ROLLING OVER IN BED TO THE RIGHT. CAN'T GET DOWN ON KNEES AND ADDUCT LEG. CAN NOT CLIP TOE NAILS, FASTEN SANDLES OR GET COMPRESSION SOCKS ON THAT SHE NORMALLY WEARS AT WORK. Better: KEEPING LEG IN NEUTRAL POSITION. TAKING ANTI- INFLAMMATORY FOR ABOUT A WEEK BUT NOT HELPING. Disturbed sleep: YES. Previous history/Previous treatment: NO HISTORY OF RIGHT HIP PROBLEM. 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 NO BACK SURGERY. STARTED GOING TO [facility] A COUPLE MONTHS AGO HOPING IF SHE COULD GET HER LOW BACK FEELING BETTER IT WOULD HELP HER HIP BUT STATES IT DIDN'T HELP HER. NO RIGHT LE SX'S ASSOCIATED WITH BACK PROBLEM. Treatment this episode: WENT FOR PHYSICAL WITH [employer] IN MARCH AND WAS REFERRED TO DR. GRAHAM. ONE VISIT WITH DR. GRAHAM. ORDERED PT AND ANTI-INFLAMMATORY. Coughing/sneezing/straining: NEGATIVE. Gait: I CAN FEEL IT PULL BUT CAN WALK THROUGH IT. DOESN'T REALLY SLOW HER DOWN. Accidents: NO. Unexplained weight loss: NO. Imaging: RIGHT HIP X-RAY - NORMAL. PMH/Recent major surgery: HTN. OTHER: FOLLOW UP PLANNED WITH DR. GRAHAM IN 6 WEEKS. - Objective Sitting/Standing Posture: POOR. Active Correction of posture: NE. Other Observations: INDEP GAIT AND TRANSFERS. Motor deficit: PIOTR LE STRENGTH 5/5 WITH MMT'ING EXCEPT R HIP FLEX 4/5, HIP ABD 4/5, ADD 4/5, RIGHT HIP IR AND ER 3- /5. Sensory deficit: PIOTR LE LIGHT TOUCH SENSATION GROSSLY INTACT AND SYMMETRICAL. ROM deficit: PIOTR LE'S WFL EXCEPT APPROX 50% LIMITED ER AND 25% LIMITED IR RIGHT HIP COMPARED TO LEFT. Dural Signs: NEGATIVE PIOTR LE'S. Lumbar mvmt loss: flex - NIL. ext - MOD. R SG - MOD - INCREASES RIGHT LOW BACK/BUTTOCK PAIN. L SG - MOD. Core strength: POOR. Palpation: NO ACUTE LUMBAR, PELVIC OR HIP TENDERNESS. - Balance/Special Test Scores Lower Extremity Functional Score: 64 - Goals Goal 1:: DECREASE C/O RIGHT HIP PAIN Goal Time Frame: 4-6 Weeks Goal 2:: IMPROVE ADL, CAR TRANSFER, AND SLEEP FUNCTION Goal Time Frame: 4-6 Weeks Goal 3:: INSTRUCT IN PROPHYLAXIS Goal Time Frame: 4-6 Weeks - Anticipated Interventions Patient/Client Instruction: Educate patient on: Condition, Plan of Care, Risk Factors For the Purpose of:: To improve self management Therapeutic Exercise to Include: Strength training, Body mechanics, Postural training, Flexibilty training, Neuromotor development, In an aquatic setting, Dynamic Lumbar Stabilization For the Purpose of:: To decrease pain, To improve muscle performance and motor function, To increase tolerance to activity/condition/position, To improve ability of physical actions for home/community/work/leisure Cryotherapy (ice pack, ice massage): Yes Thermo therapy (hot pack): Yes Ultrasound (thermal/non thermal): Yes For the Purpose of:: To decrease pain, To improve nutrient delivery to tissue Thank you for the opportunity to evaluate your patient. For Medicare and Medicare HMO plans, please review the plan of care and approve it. It will need to be FAXED BACK to us at [phone] for Medicare purposes. For Medicare only, by signing this I certify the plan of care. Please let me know if there are questions or concerns regarding this plan of care. Physician Signature: Date:
--- NOTE | 2021-09-23 12:55 | HP.PT.NRP ---
CHRISTIN BABB was seen in my office for initial evaluation on 06/17/21. The following Plan of Care was established for this patient: Initial Frequency: 2-3x /Week Initial Duration: 4-6 Weeks Patient/Client Instruction: Educate patient on: Condition, Plan of Care, Risk Factors For the Purpose of:: To improve self management Therapeutic Exercise to Include: Strength training, Body mechanics, Postural training, Flexibilty training, Neuromotor development, In an aquatic setting, Dynamic Lumbar Stabilization For the Purpose of:: To decrease pain, To improve muscle performance and motor function, To increase tolerance to activity/condition/position, To improve ability of physical actions for home/community/work/leisure Cryotherapy (ice pack, ice massage): Yes Thermo therapy (hot pack): Yes Ultrasound (thermal/non thermal): Yes For the Purpose of:: To decrease pain, To improve nutrient delivery to tissue This patient was last seen in our office 06/30/21. Pertinent comments regarding their Physical therapy will appear below: This patient has not returned to Physical Therapy and is appropriate to return to MD for further follow-up as needed. At this point I will be discontinuing this patient from physical therapy. I would be happy to see this patient again in the future if found appropriate by the physician. Thank you! Denia Hall, PT, Cert MDT Balance/Gait/Functional tests - Balance/Special Test Scores Lower Extremity Functional Score: 64
== END 2021-06-30 19:00 | disposition home or self-care (01) ==
LOC: PT 12:00
PROVIDERS: PCP Physician Assistant; Referring Provider Orthopaedic Surgery; Visit Provider Orthopaedic Surgery
DX: S76.011D Strain of muscle, fascia and tendon of right hip, subsequent encounter (principal)
CPT/HCPCS: 97110; 97161; 97530

== ENCOUNTER 2021-07-22 05:32 | Day surgery (SDC) | payer OTHER, SELFPAY ==
--- NOTE | 2021-07-22 05:57 | PCM.HP.BLA ---
History and Physical Date of Admission: 07/22/21 This patient was seen back in January 2021 in the office in follow-up of her personal history of colon polyps. Apparently in the interim she could attracted COVID-19. She apparently also had orthopedic work for a labrum tear. She now presents to proceed with the surveillance colonoscopy because of a personal history of colon polyps. 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 Mynor Shelley MD) Back pain Hemorrhoid History of colonic polyps HTN (hypertension) Surgical History (Updated 02/10/21 @ 14:52 by Lila Marks) History of cholecystectomy (~2001) History of colonoscopy (~2015) History of hysterectomy (~2011) History of lithotripsy History of tonsillectomy Family History (Updated 02/10/21 @ 14:55 by Lila Marks) Mother Hypertension Thyroid disorder Social History (Updated 09/10/20 @ 15:56 by CELINE Walls) Smoking Status: Never smoker HPI HPI HPI: CHRISTIN BABB, is a 45 F who presents to the office today for surgical consultation. The patient is referred by Silvana Ward CNP and a written copy of my surgical consult recommendations will return to her. The patient has a personal history of colon polyps. Her most recent colonoscopy was July 29, 2016. That was performed by Dr. Jacinto Neely. At that time no additional polyps were identified. It was recommended that she have a follow-up exam at 5 years. July 29, [address] Jacinto Neely the patient had a combined upper and lower endoscopy. At that time the colon was felt to be normal but because of her personal history of colon polyps follow-up at 5 years was recommended. I do not have the results of her upper endoscopy at that time. Previous evidence suggests that she had a colonoscopy July 08, 2012 with a hyperplastic polyp removed from the rectum. And then prior to that June 21, 2006 a distal transverse colon tubular adenoma was removed. She is having problems currently with moving her bowels on occasion. Feel like the initial portion is very constipated difficult and painful to extrude followed then by diarrhea. Not had any weight loss or abdominal pain. Family history is negative for colon cancer. She otherwise states that she enjoys good health. She does have some mild hypertension. ROS General General: Yes weight change and fatigue; No appetite, colon cancer, breast cancer or weakness HEENT HEENT: No difficulty swallowing, eye injury, eye surgery, swollen glands or hoarseness Endo Endocrine: No thyroid disease, diabetes mellitus, thyroid cancer, Hair loss, heat intolerance or cold intolerance Musc Musculoskeletal: Yes back problems; No arthritis, rheumatoid arthritis, gout or joint pain Cardio Cardiovascular: Yes high blood pressure; No murmur, pacemaker, heart disease, atrial fibrillation, heart attack, heart stent, palpitations, shortness of breat with exertion or chest pain Psych Psychiatric: Yes depression and anxiety; No hearing voices Resp Respiratory: No shortness of breath, No sleep apnea, No cough, No COPD, No asthma, No emphysema and No wheezing Gastro Gastrointestinal: Yes abdominal pain, No nausea or vomiting, Yes diarrhea, Yes constipation, Yes blood in stool, No acid reflux, Yes hemorrhoids, No ulcers, No gallbladder problem and No black,tarry stools Ki Hematologic: No blood thinners, No blood disorders, No bleeding, No anemia and No blood clots Neuro Neurologic: No weakness Exam Const General: cooperative, comfortable and no acute distress Nutritional Appearance: overweight HENDE Head: normal to inspection Eyes General: appearance normal, both eyes and all related structures Neck Neck: normal visual inspection Resp Effort & Inspection: normal respiratory effort Auscultation: clear to auscultation bilaterally Cardio Rate: regular rate Rhythm: regular rhythm GI Palpation: soft and no hepatosplenomegaly Auscultation: normal bowel sounds Musc Cervical Spine: normal cervical lordosis Skin General: no rashes or lesions noted Neuro Cognition: normal cognition Extrem General: no calf tenderness bilaterally Psych Appearance: grossly normal COVID (Procedure Consent) Procedure Criteria Procedure Criteria: Yes Elective The surgeon/proceduralist and patient have discussed in detail the risk of exposure to and/or potential harm posed by the COVID-19 virus with having a surgery/procedure at this time versus the risk of delaying the surgery/procedure. It is not possible to know either the risk of delaying the surgery or procedure or chance of getting an infection with perfect accuracy, but a joint decision was made between the patient and the surgeon/proceduralist to proceed at this time with the scheduled surgery/procedure as indicated on the consent form. Assessment and Plan Assessment and Plan (1) History of colonic polyps: Status: Inactive Plan Details Additional Comments: I recommended the patient a colonoscopy with possible biopsy or polypectomy as indicated. She states that with the monitored anesthesia care she performed better and awoke more quickly and more clearly. We will take expressed careful inspection of the anal rectal area looking for possibility of symptomatic hemorrhoidal disease or fissure or stenosis. Based upon that evaluation can then add further recommendations as to whether further office follow-up or potential future surgical intervention would be appropriate. I appreciate the opportunity of assisting with her surgical care Copy: Silvana Ward, SCOOTER Shelley M.D., F.A.C.S. She is still being bothered by anal rectal discomfort. She thinks it may be hemorrhoids. She is recovered from her COVID-19. She denies need for hospitalization. She was out of work for 6 days. She denies any current shortness of breath or chest pain. No bright red blood per rectum or melena. She did not incur a DVT with her illness. She does have a possible right labrum tear of her hip. She will be obtaining an MRI in the near future. She has had an opportunity to ask and have questions answered. The remainder of her history and physical remains constant. Mynor Shelley M.D., F.A.C.S.
[2021-07-22 06:03] VITALS: BP 132/70; PULSE 71; RESP 16; TEMP 36.1; O2SAT 99; BMI 37.0
[2021-07-22] MEDS: Lactated Ringers 1,000 ML 15 ML IV (06:09)
[2021-07-22 06:51] VITALS: BP 132/70; BP 96/56; PULSE 77; RESP 16; TEMP 35.6; O2SAT 96
--- NOTE | 2021-07-22 06:54 | OP.CCLET_ITS ---
07/22/2021 Hari Moss Re : Colonoscopy procedure for Elizabeth Davila Dear Ajay This procedure was performed on Thursday, July 22, 2021. My impressions and recommendations are as follows: Impressions : - Non-thrombosed internal hemorrhoids and internal hemorrhoids that prolapse with straining, but require manual replacement into the anal canal (Grade III) found on digital rectal exam. - Diverticulosis in the sigmoid colon. - The examination was otherwise normal. - No specimens collected. Recommendations : - Discharge patient to home. - Resume previous diet. - Continue present medications. - Repeat colonoscopy in 10 years for screening purposes. - Return to my office PRN to discuss hemorrhoid procedures (ppH vs surgical) My findings are described in the full procedure note, which is enclosed. If I can be of further assistance, please feel free to contact me at Doctor phone number(s): Work: . Sincerely, Mynor Shelley MD 07/22/2021 6:53:12 AM This report has been signed electronically.
--- NOTE | 2021-07-22 06:54 | OP.COLON_ITS ---
Patient Name: Elizabeth Davila Procedure Date: 07/22/2021 6:14 AM Date of : 1975 Age: 46 Procedure: Colonoscopy Indications: High risk colon cancer surveillance: Personal history of colonic polyps Providers: Mynor Shelley MD Referring MD: Mynor Shelley MD Medicines: See the Anesthesia note for documentation of the administered medications Patient Profile: Last Colonoscopy: June 2012. Complications: No immediate complications. Procedure: Pre-Anesthesia Assessment: - Prior to the procedure, a History and Physical was performed, and patient medications and allergies were reviewed. The patient's tolerance of previous anesthesia was also reviewed. The risks and benefits of the procedure and the sedation options and risks were discussed with the patient. All questions were answered, and informed consent was obtained. Prior Anticoagulants: The patient has taken no previous anticoagulant or antiplatelet agents. ASA Grade Assessment: II - A patient with mild systemic disease. After reviewing the risks and benefits, the patient was deemed in satisfactory condition to undergo the procedure. After I obtained informed consent, the scope was passed under direct vision. Throughout the procedure, the patient's blood pressure, pulse, and oxygen saturations were monitored continuously. The colonoscope was introduced through the anus and advanced to the cecum, identified by appendiceal orifice and ileocecal valve. The colonoscopy was performed without difficulty. The patient tolerated the procedure well. The quality of the bowel preparation was excellent. The ileocecal valve and the appendiceal orifice were photographed. Scope In: 6:34:01 AM Scope Withdrawal Time 0 hours 8 minutes 26 seconds Scope Out: 6:48:09 AM Total Procedure Duration Time 0 hours 14 minutes 8 seconds Findings: The digital rectal exam findings include non-thrombosed internal hemorrhoids and internal hemorrhoids that prolapse with straining, but require manual replacement into the anal canal (Grade III). Scattered diverticula were found in the sigmoid colon. The exam was otherwise without abnormality. Impression: - Non-thrombosed internal hemorrhoids and internal hemorrhoids that prolapse with straining, but require manual replacement into the anal canal (Grade III) found on digital rectal exam. - Diverticulosis in the sigmoid colon. - The examination was otherwise normal. - No specimens collected. Recommendation: - Discharge patient to home. - Resume previous diet. - Continue present medications. - Repeat colonoscopy in 10 years for screening purposes. - Return to my office PRN to discuss hemorrhoid procedures (ppH vs surgical) Procedure Code(s): --- Professional --- 46313, Colonoscopy, flexible; diagnostic, including collection of specimen(s) by brushing or washing, when performed (separate procedure) Diagnosis Code(s): --- Professional --- Z86.010, Personal history of colonic polyps K64.2, Third degree hemorrhoids K57.30, Diverticulosis of large intestine without perforation or abscess without bleeding CPT copyright 2017 [employer]. All rights reserved. The codes documented in this report are preliminary and upon addressing machine operator review may be revised to meet current compliance requirements. Mynor Shelley MD 07/22/2021 6:53:12 AM This report has been signed electronically. Number of Addenda: 0 Note Initiated On: 07/22/2021 6:14 AM
[2021-07-22 06:55] VITALS: BP 117/71; BP 132/70; PULSE 77; RESP 18; O2SAT 97
[2021-07-22 07:00] VITALS: BP 113/76; BP 132/70; PULSE 73; RESP 18; O2SAT 96
[2021-07-22 07:05] VITALS: BP 116/78; BP 132/70; PULSE 68; RESP 18; TEMP 36.1; O2SAT 96
[2021-07-22 07:43] VITALS: BP 132/70
== END 2021-07-22 07:48 ==
LOC: EN 05:34 → AC 05:34
PROVIDERS: PCP Physician Assistant; Referring Provider Physician Assistant; Visit Provider Surgery
PROC: 0DJD8ZZ Inspection of Lower Intestinal Tract, Via Natural or Artificial Opening Endoscopic (ICD-10-PCS; CPT 45378; principal; 2021-07-22 06:25)
DX: K64.2 Third degree hemorrhoids (principal); K57.30 Diverticulosis of large intestine without perforation or abscess without bleeding; I10 Essential (primary) hypertension; F41.9 Anxiety disorder, unspecified; F32.A Depression, unspecified; Z86.16 Personal history of COVID-19; Z86.010 Personal history of colon polyps; Z79.899 Other long term (current) drug therapy
CPT/HCPCS: 45378; 87426; C9803; J7120; J2405

== ENCOUNTER → 2021-08-05 11:42 | Outpatient (CLI) | payer OTHER, SELFPAY ==
--- NOTE | 2021-08-05 11:45 | RAD_ITS ---
NAME: Elizabeth Davila PROCEDURE: IR Hip Arthrogram Injection Procedure WO Anesthesia ACCESSION NUMBER: [id number] CLINICAL HISTORY AND INDICATION: pain Procedure: The procedure with its potential risks was explained to the patient, all the questions and concerns were answered and written informed consent was obtained. A timeout was observed to confirm identity, procedure and site. Localization of the patient''s right hip was performed under fluoroscopy. The patient''s right hipwas prepped and draped in the usual sterile fashion. Local anesthesia was achieved with subcutaneous injection of 1% lidocaine. Under fluoroscopic guidance, a 22-gauge needle was advanced into the right hip joint, and intra-articular location was confirmed with administration of 2 ml of ISOVUE-300 then 12 mL of diluted gadolinium based contrast ( 1:50:50 dilution of gadolinium contrast in Omnipaque 350 and normal saline, respectively ) was injected to the joint space. Intra-articular needle position was confirmed with intermittent fluoroscopy. One image was obtained. Fluoroscopic time: 1 minute and 45 seconds. The patient tolerated the procedure well, with no intermediate complications. The patient was escorted to the MR suite for further imaging. RAD/Arthrogram Hip w/ MRI IMPRESSION: Successful right hip arthrogram with injection of 12 mL of Magnevist. Electronically Signed: Benjamin Thompson MD at 8:58 EST , Service support ,
[2021-08-05] MEDS: Lidocaine 2% (5ml sdv) 5 ML VIAL.MPF INFILT (12:15)
[2021-08-05] MEDS: Iopamidol 10 ML in Syringe 1 EACH 600 ML INTRAARTIC (12:15)
--- NOTE | 2021-08-05 12:16 | MRI_ITS ---
STUDY: MRI RIGHT HIP REASON FOR EXAM: Female, 46 years old. RT GROIN PAIN X ABOUT 5 MONTHS. SHARP PAIN UPON OUTWARD ROTATION OF HIP. TECHNIQUE: TECHNIQUE: Intra-articular injection of 10 ml of gadolinium mixed with additional contrast material was performed by Dr. Moran1, T2, and fat suppressed images were obtained in all three orthogonal planes. COMPARISON: Pelvic x-ray dated June 05, 2021. Right hip arthrogram dated August 05, 2021 FINDINGS: There is intra-articular contrast distention of the right hip articulation, secondary to the gadolinium injection, with adequate capsular distention. No visualized marrow edema or fracture or osteochondral defect. No visualized evidence of avascular necrosis. Normal hip joint without articular joint space narrowing. Normal acetabulum. Tiny truncation tear/foramen seen in the posterior aspect of acetabular labrum as visualized on image 08/22 series 2 near the labral cartilaginous junction. Otherwise normal right acetabular labrum. Normal femoral head. Normal femoral neck and intratrochanteric region. Normal gluteus minimus, medius and iliopsoas tendons and distal insertions. There is no trochanteric, iliopsoas or iliopectineal bursitis. Normal superior and inferior pubic rami. Normal pubic symphysis. Normal ischial tuberosity. Normal origin of the hamstring tendons. Normal visualized iliac wing, sacroiliac joint, and sacral ala. Normal visualized soft tissue structures of the pelvis. MRI/Lower Ext/Jt Only/W Contrast IMPRESSION: 1. Tiny truncation tear/foramen seen in the posterior aspect of acetabular labrum as visualized on image 24 series 2 near the labral cartilaginous junction. Otherwise normal right acetabular labrum. Electronically Signed: Umesh Beach MD at 23:59 EST , Service support ,
== END ==
PROVIDERS: PCP Physician Assistant; Referring Provider Orthopaedic Surgery; Visit Provider Orthopaedic Surgery
DX: S73.191A Other sprain of right hip, initial encounter (principal)
CPT/HCPCS: 27093; 73722; 77002; A9575; Q9967

== ENCOUNTER 2021-09-03 14:13 | Day surgery (SDC) | payer OTHER, SELFPAY ==
[2021-09-03] VITALS (11 sets, daily range): BP systolic 108–173; BP diastolic 66–94; PULSE 76–98; RESP 16; TEMP 36.1–36.7; O2SAT 88–98; BMI 37.5
[2021-09-03 12:24] LABS: Absolute Lymphocyte Count 2.81 X10^3/uL (0.83-4.51); Absolute Neutrophil Count 4.3 X10^3/uL (2.0-7.7); Basophil# 0.05 X10^3/uL; Basophil% 0.6 % (0-1); Eosinophil# 0.17 X10^3/uL; Eosinophils% 2.1 % (0-5); Hematocrit 42.5 % (37-47); Hemoglobin 14.6 g/dL (12.0-15.0); Lymphocyte # 2.81 X10^3/ul (0.83-4.51); Lymphocyte % 35.3 % (19-41); Mean Corp Hgb Conc 34.4 g/dL (32-36); Mean Corpuscular Hgb 30.2 pg (27.0-32.0); Mean Corpuscular Volume 87.8 fL (81-99); Mean Platelet Vol. 9.1 fl (6.2-12.0); Monocyte# 0.59 X10^3/uL; Monocyte% 7.4 % (0-10); NRBC Flagged by Analyzer 0 % (0-5); Neutrophil # 4.33 X10^3/uL (2.7-7.7); Neutrophil % 54.3 % (47-70); Platelet Count 271 K/mm3 (150-450); RBC Distribution Width CV 12.2 % (11.6-14.6); RBC Distribution Width SD 39.1 fl (35.1-43.9); Red Blood Count 4.84 M/mm3 (4.2-5.4)
[2021-09-03 12:30] LABS: Anion Gap 6 (5-15); BUN 16 mg/dL (7-18); BUN/Creat Ratio 20.5 RATIO (10-20); Calcium,Total 9.3 mg/dL (8.5-10.1); Chloride 108 mmol/L (98-107); Creatinine, Serum 0.78 mg/dL (0.55-1.02); EST Glomerular Filtration Rate 85 mL/min (>60); Est Glom Filt Rate - Afr Amer 102 mL/min (>60); Glucose 112 mg/dL (74-106); Sodium Level 142 mmol/L (136-145)
--- NOTE | 2021-09-03 16:37 | PCM.HP.BLA ---
History and Physical Date of Admission: 09/03/21 Intake Visit Reasons: RLQ pain Chief Complaint: RLQ pain Exotic Dancer Required: No Is patient in pain?: No Allergies latex Allergy (Verified 09/03/21 12:54) Swelling, itching Penicillins [PCN] Allergy (Verified 09/03/21 12:54) other Sulfa (Sulfonamide Antibiotics) Allergy (Verified 09/03/21 12:54) Hives, welts Medications sertraline 100 mg PO DAILY 08/30/17 [History Confirmed 09/03/21] lisinopril 10 mg PO QHS 12/14/17 [History Confirmed 09/03/21] ibuprofen 800 mg tablet 800 mg PO TID PRN 02/10/21 [History Confirmed 09/03/21] ascorbic acid (vitamin C) 500 mg tablet 500 mg PO DAILY 06/09/21 [History Confirmed 09/03/21] cholecalciferol (vitamin D3) 125 mcg (5,000 unit) capsule 125 mcg PO DAILY 06/09/21 [History Confirmed 09/03/21] [facility] Medical History (Updated 09/03/21 @ 14:00 by Sheila BERGER, PA-C) Alcohol use Anxiety Back pain Back pain COVID-19 Depression Hemorrhoid History of colonic polyps History of edema History of palpitations HTN (hypertension) Hypertension Non-smoker Right lower quadrant pain Wears glasses Surgical History History of History of cholecystectomy (~2001) History of colonoscopy (~2015) History of hysterectomy (~2011) History of lithotripsy History of tonsillectomy Family History (Updated 09/03/21 @ 13:08 by Kaila Wednesday) Mother Hypertension Thyroid disorder Depression Rheumatoid arthritis Grandmother Parkinsons disease Social History household members: spouse and children housing: house number of children: 3 current occupational status: employed pets and animals: Yes Smoking Status: Never smoker alcohol intake: current alcohol intake frequency: holidays/special occasions only substance use type: does not use what type of physical activity do you participate in: none seatbelt use: always do you feel safe at home: Yes HPI HPI HPI: CHRISTIN BABB, is a 46 F who presents to the office today for right lower quadrant pain. Patient stated she woke up with the pain yesterday. She stated the pain started in the right lower quadrant worse with bending and movement. She notes the pain waxes and wanes. Tolerable with sitting, worse with movement. She denies fever. She states the pain can become stabbing and even radiate into the vaginal area. She states she is bloated. She denies nausea, vomiting. She notes a nagging sensation of the stomach. She denies lack of appetite however she has not consumed much within the last 24 hours. She notes diarrhea. She states she has had loose stools since her colonoscopy with Dr. Shelley on 07/22/21. Patient had hemorrhoids noted on the colonoscopy otherwise colonoscopy was unremarkable. She states she has had a partial hysterectomy. She has 2 remaining ovaries. She states she was being worked up for possible polycystic ovarian syndrome due to an overgrowth of hair. During this work-up, she had a transvaginal u/s which demonstrated a cyst on her left ovary and no cyst on her right. PCOS was ruled out. Other previous abdominal surgeries include cholecystectomy. She has had previous kidney stones with lithotripsy and stenting. She denies the pain feeling similar to this. She denies other health concerns. She does have high blood pressure which has been controlled with medication. She also notes right before her appointment her daughter called stating she tested positive for COVID today. Patient is not vaccinated. She has had COVID 19 in February of 2021. ROS General General: Yes weight change; No appetite, fatigue, colon cancer, breast cancer or weakness HEENT HEENT: No difficulty swallowing, eye injury, eye surgery, swollen glands or hoarseness Endo Endocrine: No thyroid disease, diabetes mellitus, thyroid cancer, Hair loss, heat intolerance or cold intolerance Skin Skin: No rash or changing moles Cardio Cardiovascular: Yes high blood pressure; No murmur, pacemaker, heart disease, atrial fibrillation, heart attack, heart stent, palpitations, shortness of breat with exertion or chest pain Psych Psychiatric: Yes depression and anxiety; No hearing voices Resp Respiratory: No shortness of breath, No sleep apnea, No cough, No COPD, No asthma, No emphysema and No wheezing Gastro Gastrointestinal: Yes abdominal pain, No nausea or vomiting, Yes diarrhea, No constipation, No blood in stool, No acid reflux, Yes hemorrhoids, No ulcers, No gallbladder problem and No black,tarry stools Ki Hematologic: No blood thinners, No blood disorders, No bleeding, No anemia and No blood clots Neuro Neurologic: No system reviewed and no additional complaints, except as documented, No as per HPI, No abnormal gait, No abnormal hearing, No abnormal movements, No abnormal speech, No behavioral changes, No burning sensations, No confusion, No convulsions, No disequilibrium, No dizziness, No localized weakness, No frequent falls, No headache(s), No lack of coordination, No loss of vision, No memory loss, No numbness, No other visual disturbances, No radicular pain, No restless legs, No sensory deficit, No syncope, No tingling, No tremor(s), No weakness and No other Exam Const General: cooperative, healthy appearing and no acute distress HENMT Head: normal to inspection Eyes General: appearance normal, both eyes and all related structures Neck Neck: normal visual inspection Neck mass: No Resp Effort & Inspection: normal respiratory effort Auscultation: clear to auscultation bilaterally Cardio Rate: regular rate Rhythm: regular rhythm GI Inspection: large pannus and obesity Palpation: soft and tender in the RLQ, Lacey's sign positive, obturator sign positive and Rovsing's sign positive Auscultation: hypoactive bowel sounds Skin General: no rashes or lesions noted Neuro General: no focal motor deficits and CN's II-XI intact bilaterally Extrem General: normal to inspection Psych Appearance: grossly normal Affect: normal affect Assessment and Plan Assessment and Plan (1) Right lower quadrant pain: Status: Acute Orders: Orders: Basic Metabolic Profile (BMP) Today CBC W/Diff, Automated Today Plan - Sheila BERGER, PA-C: Dr. Shelley has also evaluated this patient. Recommend CT scan of the abdomen/pelvis. High suspicion for appendicitis versus ovarian cyst. Patient informed us that her daughter just tested positive today for COVID-19. Patient will need COVID tested. If COVID test returns as positive and CT scan does confirm appendicitis, then patient will be treated medically. If COVID test is negative and CT scan confirms appendicitis, then Dr. Shelley will plan to perform a laparoscopic appendectomy. Patient has had the opportunity to ask and have questions answered. Patient verbally understands and agrees with the plan. We will be in touch with the patient once the CT scan results return. She is to not eat or drink anything until she hears from our office. Patient is tentatively scheduled for 18:00 pm today. I have participated in this patient's history and physical examination. Participated in recommending laboratory and CT imaging. On personal review of the imaging believe that the patient has acute appendicitis and this correlates well with her presentation. I recommended the patient a laparoscopic appendectomy. Technique, benefit, risk, alternatives have been discussed. Hopefully based upon clinical exam and imaging this is an early appendicitis and it is possible that we will be able to achieve an outpatient procedure. She has had an opportunity to ask and have questions answered. We will proceed as OR timing permits. Currently in the OR is tied up with after hours persistent elective cases. Mynor Shelley M.D., F.A.C.S.
[2021-09-03] MEDS: Lactated Ringers 1,000 ML 30 ML IV (17:30)
--- NOTE | 2021-09-03 18:05 | APP_PTH ---
PATIENT: CHRISTIN BABB [place] [facility] [id number] AGE/SX: 46/F ROOM: RE09/03/[address]: Sheila Serra PA-C : 1975 BED: DIS: 09/03/2021 SPEC #: [id number] RECD: 09/04/21 10:08 STATUS: CIARRA RUPERT #: [id number] PRETTY: 09/03/21 18:[address]: Mynor Shelley DEPT: SURGICAL PATHOLOGY RECD BY: Марина Schroeder ENTERED: 09/04/21 13:30 SP TYPE: APPENDIX OTHR DR: KAVON Mccracken PA Tissues: Appendix, NOS Procedures: Surgery Specimen Level III HEADER OPERATION: Laparoscopic appendectomy PRE-OP DIAGNOSIS: Acute appendicitis TISSUE SUBMITTED: Appendix MICROSCOPIC DIAGNOSIS Appendix, appendectomy: Acute appendicitis and periappendicitis. See comment. DEBORA:dylan 09/05/2021 COMMENT Acute inflammation predominantly is noted in the lumen and the superficial mucosa. Periappendiceal adipose tissue also shows area of acute inflammation, congestion, hemorrhage and reactive changes. Significant inflammation is not seen in the appendicular wall. Clinical correlation and appropriate follow up are necessary. Case has been reviewed in consultation with Dr. Hendrix who concurs with the above diagnosis. EDDIE:MITCHEL MICROSCOPIC DESCRIPTION Slides are reviewed. GROSS DESCRIPTION Received in fixative is one container labeled with the patient's name and designated appendix. The specimen consists of an appendix measuring 7 cm in length and 1 cm in average diameter. No gross perforations are evident. The fibrofatty tissue at the tip of the appendix is indurated and red-black in color. Serial sections reveal a patent lumen. Animal Trainer Supervisor sections are submitted in two cassettes. / MITCHEL:dylan 09/03/21 TC:2 CPT: 30256
--- NOTE | 2021-09-03 20:00 | DCINST_ITS ---
Discharge Instructions Procedure General Surgery Diet Discharge Diet: Light diet - advance as tolerated (if you have questions about your diet instructions, please talk to you doctor.) Activity Discharge Activity: May Not Drive (for 3-5 days or while taking narcotic pain medicine.) May shower in (days): 1 Lifting Restrictions: 10 pounds Dressing / Incision Call your doctor if your incision/area has: Continuous Slow Oozing, Sudden Increased Bleeding, Increased Pain/ Swelling, Increased Redness and Foul Smelling Discharge Call your doctor if you observe: Fever of 101 or Higher Suture Line Care: Avoid Pulling/Pushing and Avoid Pinching/Bending Additional Dressing/Incision Instructions:: Change or remove dressing in 4 days. Leave steri-strips in place for 1 week. Follow Up Care Please Follow Up With: Mynor Shelley MD When: Call [phone] to make an appointment to be seen in about 10 days. Test Results: Test results from this visit will be discussed in further detail at your follow-up appointment, if applicable. Discharge Plan Admission Attending Provider: Mynor Shelley Primary Care Provider: Hari Moss Consulting Providers: Mynor Shelley ; Sheila Serra Discharge Orders/Prescriptions Prescriptions: No Action cholecalciferol (vitamin D3) 125 mcg (5,000 unit) capsule 125 mcg PO DAILY RF: 0 ascorbic acid (vitamin C) 500 mg tablet 500 mg PO DAILY RF: 0 sertraline 100 MG tablet 100 mg PO DAILY RF: 0 lisinopril 10 MG tablet 10 mg PO QHS RF: 0 ibuprofen 800 mg tablet 800 mg PO TID PRN (Reason: pain/fever) RF: 0 Other Ambulatory Orders: COVID 19 AG RAPID (RN COLLECT) (Routine) Timeframe: [id number] Facility: [facility] - Location: Laboratory Ordered By: Dr. Ruslan Davis
--- NOTE | 2021-09-03 20:58 | PCM.OPRPT ---
Problems Associated Problem List Diagnoses (1) Acute appendicitis: Report of Operation Date of Procedure: 09/03/21 Pre-Operative Diagnosis: Acute appendicitis Post-Operative Diagnosis: Acute appendicitis Surgery/Procedure Performed:: Laparoscopic appendectomy Description of Surgical Findings:: Timeout and informed consent was obtained. 46-year-old female was taken to the operating room. Preoperative therapeutic antibiotics have been ordered clindamycin gentamicin. She underwent general endotracheal ovation esthesia. The abdomen sterilely prepped and draped. 0.5% Marcaine was used as a local anesthetic. Throughout the procedure total 30 cc was used. Skin sites were preanesthetized. Because of previous abdominal surgery I made a vertical supra umbilical incision sharp dissection carried down through the subtenons tissue holding sutures of 0 Vicryl placed the fascia was incised the peritoneum identified and incised 10 mm trocar inserted 10 mm laparoscope inserted and the abdomen was insufflated with CO2 to a pressure of 10 mmHg pressure. No evidence of any trocar injuries. Under direct visualization 5 mm trochars were placed suprapubically in the low mid abdomen. Early acute appendicitis of the tip of the appendix was identified. The mid and more proximal appendix was unremarkable. A window was made in the mesoappendix a standard height 45 mm stapler was used to transect the appendix flush with the cecum. Vascularized height stapler was used to transect the mesoappendix. Further mesoappendix was secured with 2 Hem-o-jewel clips. Hemostasis was intact. The appendix was placed in a retrieval bag. The abdomen was allowed to deflate through an antiviral valve. Trochars were removed. Appendix was removed. The fascia at the umbilicus approximated running 0 Vicryl. Skin edges approximated opted for Monocryl subdermal stitches. Steri-Strips Telfa OpSite dressings applied. Sponge and instrument and needle counts were reported to the surgeon to be correct. Specimen appendix. Drains none. Blood loss minimal. The patient was taken the recovery room in satisfactory addition without apparent complication Mynor Shelley M.D., F.A.C.S. Surgeon: Mynor Shelley Type of Anesthesia: General and Local Anesthesiologist: Max Hall
== END 2021-09-03 23:59 | disposition short-term general hospital (02) ==
LOC: LAB 14:13 → SDC 16:34 → AC 16:35
PROVIDERS: PCP Physician Assistant; Referring Provider Surgery; Visit Provider Physician Assistant
PROC: 0DTJ4ZZ Resection of Appendix, Percutaneous Endoscopic Approach (ICD-10-PCS; CPT 44970; principal; 2021-09-03 17:45)
DX: K35.80 Unspecified acute appendicitis (principal); I10 Essential (primary) hypertension; Z86.16 Personal history of COVID-19; F41.9 Anxiety disorder, unspecified; F32.A Depression, unspecified; Z86.010 Personal history of colon polyps; Z79.899 Other long term (current) drug therapy; Z90.49 Acquired absence of other specified parts of digestive tract
CPT/HCPCS: 49320; 00790; 36415; 80048; 85025; 87426; 88304; C9803; J7120; J2405

== ENCOUNTER 2021-09-03 16:57 | Outpatient (CLI) | payer OTHER, SELFPAY ==
--- NOTE | 2021-09-03 15:36 | CT_ITS ---
STUDY: CT ABDOMEN AND PELVIS WITH CONTRAST REASON FOR EXAM: Female, 46 years old. Abdominal pain RADIATION DOSAGE (If Supplied By Facility): CTDIvol = ( 16.99 ) mGy, DLP = ( 1388.60 ) mGycm TECHNIQUE: Transaxial images were obtained from the dome of the diaphragm to the symphysis pubis without oral contrast. Oral and amp;amp; IV Gastrografin and amp;amp; 100mL Isovue-370 was administered. Sagittal and coronal images were reconstructed. Individualized dose optimization techniques were used for this CT. COMPARISON: 08/31/2017. FINDINGS: The visualized lung bases are unremarkable. The visualized portions of the heart are within normal limits. Fatty liver. Status post cholecystectomy. No significant dilatation of the extrahepatic biliary system. Normal spleen. Normal pancreas. Normal bilateral adrenal glands. 3 mm stone in the right kidney. Normal left kidney. Normal visualized stomach. Normal small intestine. Normal colon. The appendix is visualized and appears normal. Normal abdominal aorta. Normal inferior vena cava. Normal retroperitoneum. Normal urinary bladder. Normal abdominal wall. Normal osseous structures. CT/Abdomen/Pelvis WITH Contrast IMPRESSION: Fatty liver. Nonobstructive right renal stone. Electronically Signed: Jonathan Parsons DO at 16:27 EST Tel [phone], Service support ,
== END 2021-09-03 23:59 | disposition short-term general hospital (02) ==
PROVIDERS: PCP Physician Assistant; Visit Provider Surgery
DX: R10.31 Right lower quadrant pain (principal)
CPT/HCPCS: 74177; Q9967

== ENCOUNTER 2022-03-24 15:29 | Outpatient (CLI) | payer OTHER, SELFPAY ==
[2022-03-24 16:50] LABS: Magnesium 1.7 mg/dL (1.6-2.6); T4 Free Direct 0.93 ng/dL (0.76-1.46); Thyroid Stim Hormone (TSH) 1.49 uIU/mL (0.358-3.74)
== END 2022-03-24 23:59 | disposition home or self-care (01) ==
PROVIDERS: PCP Family Medicine; Referring Provider Registered Nurse; Visit Provider Registered Nurse
DX: R00.2 Palpitations (principal)
CPT/HCPCS: 36415; 83735; 84439; 84443

== ENCOUNTER → 2022-04-10 | Outpatient (CLI) | payer OTHER, SELFPAY | END | disposition home or self-care (01) | LOC: PSN 08:38 | PROVIDERS: PCP Family Medicine; Referring Provider Registered Nurse; Visit Provider Registered Nurse | DX: R00.2 Palpitations (principal) | CPT/HCPCS: 93005 ==

== ENCOUNTER → 2022-04-20 | Outpatient (CLI) | payer OTHER, SELFPAY ==
--- NOTE | 2022-04-20 13:53 | ECHOCS_ITS ---
Reason For Study: PALP Procedure This was a 2D Doppler, Color Flow transthoracic echocardiogram. The study was technically difficult. Contrast injection was performed. Exam performed in department. Left Ventricle Based upon the 2D echocardiographic and contrast enhanced images obtained there appears to be grossly normal left ventricular size, wall motion, and systolic function. The estimated ejection fraction is 65 %. No evidence for diastolic dysfunction. Right Ventricle Normal RV size. Normal systolic function. Atria Normal left atrium. Normal right atrium. No doppler evidence for ASD. Mitral Valve There is mild to moderate mitral annular calcification. Extension of the mitral annular calcification onto the base of the posterior mitral valve leaflet. Trivial mitral valve insufficiency. Tricuspid Valve Normal tricuspid valve. Trivial tricuspid valve insufficiency. Right ventricular systolic pressure estimated to be 35 mmHg. Aortic Valve Trisinus/trileaflet aortic valve. Normal aortic valve. Pulmonic Valve The pulmonic valve is not well visualized. Great Vessels Normal sized aortic root. Pericardium/Pleural No pericardial effusion. Medication 22 gauge I.V. with prn adaptor inserted into left arm. Diluted definity 2ml given slow IV push to enhance endocardial definition. MMode/2D Measurements & Calculations LVIDd: 5.1 cm IVSd: 0.90 cm Ao root diam: 2.8 cm LVIDs: 3.6 cm LVPWd: 0.69 cm RVDd: 2.8 cm FS: 30.3 % LAV(MOD-bp): 57.4 ml LVAd ap4: 33.8 cm2 SV(MOD-sp4): 75.3 ml LAV(MOD-sp2): 62.0 ml LVLd ap4: 8.5 cm LAV(MOD-sp4): 49.2 ml EDV(MOD-sp4): 108.7 ml EDV(sp4-el): 114.3 ml LVAs ap4: 16.1 cm2 LVLs ap4: 6.5 cm ESV(MOD-sp4): 33.4 ml ESV(sp4-el): 33.7 ml EF(MOD-sp4): 69.3 % EF(sp4-el): 70.5 % SV(sp4-el): 80.6 ml LA A4 area: 18.7 cm2 LA dimension(2D): 3.9 cm RA A4 area: 15.1 cm2 Time Measurements MV dec time: 0.20 sec Doppler Measurements & Calculations MV E max wilfred: 105.8 cm/sec Lat Peak E' Wilfred: 17.2 cm/sec Med Peak E' Wilfred: 16.0 cm/sec MV A max wilfred: 86.0 cm/sec E/E' lat: 6.2 E/E' med: 6.6 MV E/A: 1.2 MV V2 max: 110.0 cm/sec MV dec slope: 538.3 cm/sec2 Ao V2 max: 178.8 cm/sec MV max P.8 mmHg Ao max P.8 mmHg MV V2 mean: 62.6 cm/sec Ao V2 mean: 117.8 cm/sec MV mean P.8 mmHg Ao mean P.5 mmHg MV V2 VTI: 39.7 cm Ao V2 VTI: 40.7 cm LV V1 max: 148.4 cm/sec PA V2 max: 132.6 cm/sec TR max wilfred: 283.1 cm/sec LV V1 max P.8 mmHg PA V2 mean: 86.2 cm/sec TR max P.1 mmHg LV V1 mean P.4 mmHg LV V1 mean: 97.1 cm/sec LV V1 VTI: 32.4 cm ECHO/Echo Complete W/ Contrast Interpretation Summary The study was technically difficult. Contrast injection was performed. Based upon the 2D echocardiographic and contrast enhanced images obtained there appears to be grossly normal left ventricular size, wall motion, and systolic function. The estimated ejection fraction is 65 %. There is mild to moderate mitral annular calcification. Extension of the mitral annular calcification onto the base of the posterior mi tral valve leaflet. Trivial mitral valve insufficiency. Trivial tricuspid valve insufficiency. Right ventricular systolic pressure estimated to be 35 mmHg. No evidence for diastolic dysfunction. Ordering Physician: Silvana Ward Referring Physician: Silvana Ward Performed By: Malu Gan RCS
== END | disposition home or self-care (01) ==
LOC: CVS 13:51
PROVIDERS: PCP Family Medicine; Referring Provider Registered Nurse; Visit Provider Registered Nurse
DX: R00.2 Palpitations (principal)
CPT/HCPCS: 93306; Q9957; A4216; C8929

== ENCOUNTER → 2022-06-19 | Outpatient (CLI) | payer OTHER, SELFPAY ==
--- NOTE | 2022-06-19 12:09 | BI_ITS ---
MAMMOGRAPHY - BILATERAL SCREENING 3-D TOMOSYNTHESIS REASON FOR EXAM: Female, 47 years old. Routine survey PERTINENT HISTORY: No significant family history. TECHNIQUE: 2-D mammograms and 3-D Tomosynthesis of the breast (s) were performed. CAD was performed. COMPARISON: 06/12/2020 FINDINGS: The breast composition is composed of scattered fibroglandular density. Scattered benign calcifications are seen. No dense spiculated masses or suspicious microcalcifications are identified. No architectural distortion is identified. There is no skin thickening or retraction. There has been no significant change since the prior study. BI/SCRN MAMM (CAD)W/KASSIDY BILAT IMPRESSION: No mammographic signs of malignancy. Routine yearly mammograms recommended. ASSESSMENT CATEGORY: BIRADS Category 1: Negative. A letter regarding these results will be sent to the patient by the facility within 30 days. FOLLOW UP RECOMMENDATION: Yearly follow up mammogram recommended. (A) Approximately 10% of breast cancers are not detected by mammography. A normal mammogram should not delay biopsy of a clinically suspicious abnormality. Electronically Signed: Meliton Bustos MD at 13:00 EDT ,
== END | disposition home or self-care (01) ==
LOC: OPBI 12:08
PROVIDERS: PCP Family Medicine; Visit Provider Physician Assistant
DX: Z12.31 Encounter for screening mammogram for malignant neoplasm of breast (principal)
CPT/HCPCS: 77063; 77067

== ENCOUNTER → 2022-08-26 | Outpatient (CLI) | payer OTHER, SELFPAY ==
--- NOTE | 2022-08-26 16:48 | STRESSREP ---
Stress Test Report Date: 08-26-2022 Procedure: Exercise tolerance test Indications: Chest pain, cardiac ectopy, PACs/PVCs Consent: Per the patient Procedure: The patient exercised on a Jaison protocol for 7 minutes and 15 seconds completing Stage II and 1 minute and 15 seconds of Stage III achieving a peak heart rate of 166 bpm (95% predicted maximal heart rate) with a resting blood pressure of 122/84 mmHg and a peak blood pressure 178/72 mmHg and a peak MET capacity of approximately 9 MET's. The baseline ECG demonstrated normal sinus rhythm. The peak exercise ECG demonstrated somatic/motion artifact with no obvious ECG changes. There were no cardiac dysrhythmias pretest, during exercise, or recovery. The functional capacity was considered average. The patient had no complaint of chest discomfort during exercise or recovery. The examination was discontinued secondary to dyspnea. Impression: 1. Technically adequate (percent predicted maximal heart rate greater than 85%) exercise tolerance test 2. Peak exercise ECG with somatic/motion artifact with no obvious ECG changes 3. There were no cardiac dysrhythmias during exercise or recovery This note was generated with Common [employer]ensing[employer] software. It may contain incorrect words, spelling, and punctuation that were not noted in checking the note before signing.
== END | disposition home or self-care (01) ==
LOC: CVS 10:48
PROVIDERS: PCP Family Medicine; Referring Provider Internal Medicine Cardiovascular Disease; Visit Provider Internal Medicine Cardiovascular Disease
DX: I49.3 Ventricular premature depolarization (principal); R06.00 Dyspnea, unspecified; R07.9 Chest pain, unspecified; I34.9 Nonrheumatic mitral valve disorder, unspecified; I10 Essential (primary) hypertension; R00.2 Palpitations
CPT/HCPCS: 93017

== ENCOUNTER → 2023-04-06 | Outpatient (CLI) | payer OTHER, SELFPAY ==
[2023-04-06 11:02] LABS: AST(SGOT) 47 U/L (15-37); Alanine Aminotransfer ALT/SGPT 75 U/L (13-56); Albumin, Serum 3.8 g/dL (3.2-5.0); Alkaline Phosphatase 71 U/L (45-117); Bilirubin, Direct 0.21 mg/dL (0.00-0.30); Globulin 3.6 g/dL (2.2-4.2); Protein, Total 7.4 g/dL (6.4-8.2)
[2023-04-07 05:07] LABS: HEPATITIS B SURFACE AG Negative (Negative); Hep C Antibodies Non Reactive (Non Reactive); Hepatitis A IgM Antibody Negative (Negative); Hepatitis B Core AB IgM Negative (Negative)
== END | disposition home or self-care (01) ==
LOC: LAB 09:38
PROVIDERS: PCP Family Medicine; Referring Provider Registered Nurse; Visit Provider Registered Nurse
DX: R74.8 Abnormal levels of other serum enzymes (principal); R73.01 Impaired fasting glucose
CPT/HCPCS: 36415; 80074; 80076; 83036

== ENCOUNTER → 2023-06-22 | Outpatient (CLI) | payer OTHER, SELFPAY ==
--- NOTE | 2023-06-22 07:24 | BI_ITS ---
MAMMOGRAPHY - BILATERAL SCREENING REASON FOR EXAM: Female, 48 years old. Routine annual screening examination. PERTINENT HISTORY: Non-contributory. TECHNIQUE: Digital bilateral breast kassidy (3D mammographic acquisition) in the CC and MLO projections. 2-D mediolateral oblique (MLO) and craniocaudad (CC) views of both breasts were obtained. CAD: Full Field Digital Mammography with Computer Added Detection was performed. COMPARISON: Comparison is made with prior study dated June 19, 2022 and June 17, 2021. FINDINGS: Breast Composition: There are scattered areas of fibroglandular density. There are no dominant masses or suspicious calcifications. No other significant abnormalities are identified. There has been no significant change since the prior study. BI/SCRN MAMM (CAD)W/KASSIDY BILAT IMPRESSION: Stable bilateral screening mammogram. Yearly follow-up mammogram recommended. (A) ASSESSMENT CATEGORY: BIRADS Category 1: Negative. A letter regarding these results will be sent to the patient by the facility within 30 days. Approximately 10% of breast cancers are not detected by mammography. A normal mammogram should not delay biopsy of a clinically suspicious abnormality. [id number] Electronically Signed: Benjamin Thompson MD at 8:37 EDT ,
--- NOTE | 2023-06-22 07:24 | US_ITS ---
STUDY: ABDOMINAL ULTRASOUND - RIGHT UPPER QUADRANT REASON FOR VISIT: Female, 48 years old elevated LFTs TECHNIQUE: Ultrasound evaluation of the right upper quadrant was performed with real-time and static reynolds-scale imaging. TECHNICAL QUALITY: Limited. Examination limited by bowel gas. COMPARISON: CT from 09/03/2021 FINDINGS: Liver: The liver measures 19.4 cm. There is increased echogenicity consistent with fatty infiltration. The bile ducts are within normal limits. There is hepatic color flow. The direction of portal flow is hepatopetal. There is no demonstrated mass lesion. Gallbladder: The patient is status post cholecystectomy. Common Bile Duct (C.B.D.): The common bile duct measures 5.9 mm. Pancreas: Normal size of the head, body and tail of the pancreas. There is normal echogenicity of the pancreas. There is no demonstrated pancreatic mass or cyst. Right Kidney: Normal size of the right kidney. The right kidney measures 11.8 x 6.4 x 4.6 cm. Normal renal cortex. The right cortex measures 1.4 cm. There is no demonstrated renal mass or cyst. There is no right hydronephrosis, there is a nonobstructing 4 mm stone.. US/Abdomen Limited IMPRESSION: Hepatomegaly with diffuse fatty infiltration of the liver, no discrete lesion Previous cholecystectomy Nonobstructing right nephrolithiasis Electronically Signed: Meliton Bustos MD at 14:11 EDT ,
== END | disposition home or self-care (01) ==
PROVIDERS: PCP Registered Nurse; Referring Provider Registered Nurse; Visit Provider Registered Nurse
DX: Z12.31 Encounter for screening mammogram for malignant neoplasm of breast (principal); R74.8 Abnormal levels of other serum enzymes
CPT/HCPCS: 76705; 77063; 77067

== ENCOUNTER → 2023-08-03 | Outpatient (CLI) | payer OTHER, SELFPAY ==
[2023-08-03 12:13] LABS: Bacteria 0 SEEN /hpf (None Seen); Mucous, Urine 0 SEEN /hpf (<or=2+)
[2023-08-03 13:56] LABS: Absolute Lymphocyte Count 2.79 X10^3/uL (0.83-4.51); Absolute Neutrophil Count 4.2 X10^3/uL (2.0-7.7); Basophil# 0.06 X10^3/uL; Basophil% 0.8 % (0-1); Eosinophil# 0.18 X10^3/uL; Eosinophils% 2.3 % (0-5); Hematocrit 44.2 % (37-47); Hemoglobin 15.1 g/dL (12.0-15.0); Lymphocyte # 2.79 X10^3/ul (0.83-4.51); Lymphocyte % 35.1 % (19-41); Mean Corp Hgb Conc 34.2 g/dL (32-36); Mean Corpuscular Hgb 30.2 pg (27.0-32.0); Mean Corpuscular Volume 88.4 fL (81-99); Mean Platelet Vol. 10.5 fl (6.2-12.0); Monocyte# 0.65 X10^3/uL; Monocyte% 8.2 % (0-10); NRBC Flagged by Analyzer 0 % (0-5); Neutrophil # 4.22 X10^3/uL (2.7-7.7); Neutrophil % 53.1 % (47-70); Platelet Count 311 K/mm3 (150-450); RBC Distribution Width SD 38.5 fl (35.1-43.9); White Blood Count 7.9 K/mm3 (4.4-11.0)
[2023-08-03 14:12] LABS: Color, Urine Yellow (Yellow); Glucose, Dipstick Normal (Normal); Ketone-Dipstick Negative (Negative); Leukocyte Esterase-Dipstick 25 /ul (Negative); Nitrite-Dipstick Negative (Negative); Occult Blood-Urine 250 /ul (Negative); Protein-Dipstick 30 mg/dl (Negative); Urine Bilirubin Dipstick Negative (Negative); Urine Clarity Clear (Clear); Urine Urobilinogen Normal (Normal)
[2023-08-03 14:26] LABS: Anion Gap 5 (5-15); BUN 17 mg/dL (7-18); BUN/Creat Ratio 22.2 RATIO (10-20); Calcium,Total 9.4 mg/dL (8.5-10.1); Chloride 104 mmol/L (98-107); Creatinine, Serum 0.77 mg/dL (0.55-1.02); EST Glomerular Filtration Rate 85 mL/min (>60); Est Glom Filt Rate - Afr Amer 103 mL/min (>60); Glucose 108 mg/dL (74-106); Potassium 4.2 mmol/L (3.5-5.1); Sodium Level 135 mmol/L (136-145)
[2023-08-03 14:42] LABS: Squamous Epithelial Cells - UA 0-5 SEEN /hpf (5-10)
[2023-08-03 14:43] LABS: Red Blood Cells-Urine > 100 SEEN /hpf (0-5); White Blood Cells 0-5 SEEN /hpf (0-5)
== END | disposition home or self-care (01) ==
LOC: LAB 12:10
PROVIDERS: PCP Registered Nurse; Referring Provider Registered Nurse; Visit Provider Registered Nurse
DX: R31.9 Hematuria, unspecified (principal)
CPT/HCPCS: 36415; 80048; 81001; 85025; 87086

== ENCOUNTER → 2023-08-06 | Outpatient (CLI) | payer OTHER, SELFPAY ==
--- NOTE | 2023-08-06 15:18 | CT_ITS ---
STUDY: CT ABDOMEN AND PELVIS WITH AND WITHOUT CONTRAST - REASON FOR EXAM: Female, 48 years old. HEMATURIA RADIATION DOSAGE (If Supplied By Facility): CTDIvol = ( 28.30 ) mGy, DLP = ( 4471.86 ) mGycm TECHNIQUE: IV 100mL Isovue-300 was administered. Transaxial images were obtained from the dome of the diaphragm to the symphysis pubis. Multiplanar coronal and sagittal images were reformatted. Individualized Dose Optimization Techniques Were Used For This CT. COMPARISON: FINDINGS: The visualized lung bases are unremarkable. The visualized portions of the heart are within normal limits. Fatty liver. Status post cholecystectomy. No significant dilatation of the extrahepatic biliary system. Normal spleen. Normal pancreas. Normal bilateral adrenal glands. Normal visualized stomach. Normal small intestine. Normal colon. The appendix is not visualized. Normal abdominal aorta. No retroperitoneal adenopathy. Normal right kidney. Possible punctate stone in the left kidney. Normal urinary bladder. Normal abdominal wall. Normal osseous structures. CT/CT Abd/Pelvis W/WO Contrast IMPRESSION: Fatty liver. Nonobstructive punctate left renal stone. Electronically Signed: Jonathan Parsons DO at 16:14 [facility] Reading Location ID and State: [facility] / [place] Tel [phone], Service support ,
== END | disposition home or self-care (01) ==
LOC: CT 15:17
PROVIDERS: PCP Registered Nurse; Referring Provider Registered Nurse; Visit Provider Registered Nurse
DX: R31.9 Hematuria, unspecified (principal)
CPT/HCPCS: 74178; Q9967

== ENCOUNTER → 2023-09-17 | Outpatient (CLI) | payer OTHER, SELFPAY ==
--- NOTE | 2023-09-17 09:55 | VDLE_ITS ---
Reason For Study: BLE Swelling RIGHT LEFT CFV is compressible, spontaneous, phasic, CFV is compressible, spontaneous, phasic, competent and demonstrates normal competent, and demonstrates normal augmentation. augmentation. FV is compressible, spontaneous, phasic, FV is compressible, spontaneous, phasic, competent and demonstrates normal competent and demonstrates normal augmentation. augmentation. POP V is compressible, spontaneous, phasic, POP V is compressible, spontaneous, phasic, competent and demonstrates normal competent and demonstrates normal augmentation. augmentation. T/P Trunk is compressible. T/P Trunk is compressible. PTV is compressible. PTV is compressible. RT PerV is compressible. LT PerV is compressible. SFJ is competent and measures 0.65 cm. SFJ is INCOMPETENT and measures 0.63 cm. GSV proximal thigh measures 0.27 x 0.27 cm. GSV proximal thigh measures 0.27 x 0.28 cm. GSV at knee measures 0.32 x 0.33 cm. GSV at knee measures 0.24 x 0.29 cm. GSV is competent throughout. GSV is competent throughout. SSV at junction is competent and measures SSV at junction is INCOMPETENT for greater 0.61 cm. than 0.5 seconds and measures 0.41 cm. ASV distal calf is INCOMPETENT for greater than 0.5 seconds and measures 0.31 x0.39 cm. Rt Perforating vessel at posterior mid calf measures approximately 0.39cm in long axis and has a reflux time of greater than 0.5 seconds. Corrosion Prevention Metal Sprayer does appear to feed varicosity noted in same area. Procedure Exam performed in department. This is a venous duplex using B-mode, color flow and spectral Doppler. Exam done with patient in reverse trendelenburg position. The exam was diagnostic. VL/Venous Duplex US - Vito Extrem Interpretation Summary Deep veins of the bilateral lower extremities are patent and compressible segme ntally. There is no evidence of bilateral lower extremity deep vein thrombosis. The bilateral great saphenous veins appear patent and compressible segmentally. Positive for reflux in the right accessory saphenous vein and calf chief green officer. Positive for reflux in the left saphenofemoral junction and small saphenous vei n Ordering Physician: Kari Bagley Referring Physician: Silvana Ward Performed By: Scottie Saha RVT
--- OUTSIDE RECORDS SUMMARY | 2023-09-17 10:05 | XMS RPT_ITS | CCD ---
Author Name Unknown Address [address] [place] [address] Organization [facility] Care Team Providers Care Automatic Machine Attendant Name Role Phone Hari Moss PA-C Primary Care Provider Hari MOSS Primary Care Unavailable SILVANA WARD Attending Unavailable Hari MOSS Primary Care Unavailable SILVANA WARD Attending Unavailable Allergies Allergy Classification Reported Allergen(s) Allergy Type Date of Onset Reaction(s) Facility (15 sources) Latex; Translations: [LATEX] Drug Intolerance 3 [facility] (15 sources) Penicillins; Translations: [PENICILLINS] Drug Intolerance 3 [facility] (15 sources) Sulfonamides (Antibiotic); Translations: [SULFA (SULFONAMIDE ANTIBIOTICS)] Drug Intolerance 3 [facility] Medications Current Medications Medication Drug Class(es) Dates Sig (Normalized) Sig (Original) iv contrast (will be provided with radiology test) (1 source) Start: 08-02-2023 End: 08-03-2023 iv contrast (will be provided with radiology test) Indications: Gross hematuria CT Urogram WO/W Inject, intravenously, once for 1 dose.No IV access, insert saline lock prior to the beginning of sedation, infusion, injection of imaging exam. Discontinue saline lock post exam. If Pt. has a central line or IVAD, may access for administration according to line specific nursing protocol. Once exam is complete flush line and de-access according to line specific nursing protocol in the CT contrast administration guidelines link. 1 Each 0 08/02/2023 08/03/2023 Active Completed/Discontinued Medications Medication Drug Class(es) Dates Sig (Normalized) Sig (Original) COMPOUNDED PRESCRIPTION (13 sources) Start: 04-24-2019 End: 06-22-2023 COMPOUNDED PRESCRIPTION Indications: Neck arthralgia Consult to Massage Therapy ICD-10: M54.2 1 Each 0 04/24/2019 06/22/2023 Discontinued Problems Active Problems Problem Classification Problem Date Documented Date Episodic/Chronic Adjustment disorders (2 sources) Adjustment disorder with mixed anxiety and depressed mood; Translations: [Adjustment disorder with mixed anxiety and depressed mood] Chronic Anxiety disorders (15 sources) Anxiety; Translations: [Anxiety disorder, unspecified] Onset: 05-24-2013 05-24-2013 Chronic Cardiac dysrhythmias (1 source) Palpitations; Translations: [Palpitations] Episodic Diabetes mellitus without complication (1 source) Hyperglycemia; Translations: [Impaired fasting glucose] 04-06-2023 Episodic Essential hypertension (15 sources) Essential hypertension; Translations: [Essential (primary) hypertension] Onset: 11-03-2017 11-03-2017 Chronic Genitourinary symptoms and ill-defined conditions (2 sources) Nick hematuria; Translations: [Gross hematuria] Onset: 08-02-2023 08-02-2023 Episodic Heart valve disorders (11 sources) Mitral valve annular calcification; Translations: [Rheumatic mitral valve disease, unspecified] Onset: 04-24-2022 Chronic Mood disorders (14 sources) Depressive disorder; Translations: [Depression] Onset: 05-24-2013 05-24-2013 Chronic Other connective tissue disease (1 source) Lateral epicondylitis of bilateral humerus; Translations: [Lateral epicondylitis, right elbow] 04-06-2023 Episodic Other ear and sense organ disorders (14 sources) Hearing loss in left ear; Translations: [Unspecified hearing loss, left ear] Onset: 09-12-2015 09-12-2015 Chronic Other liver diseases (20 sources) Steatosis of liver; Translations: [Fatty (change of) liver, not elsewhere classified] Onset: 07-15-2016 08-26-2021 Chronic Other liver diseases (1 source) Elevated liver enzymes level; Translations: [Abnormal levels of other serum enzymes] 04-06-2023 Episodic Other nutritional; endocrine; and metabolic disorders (14 sources) Obesity; Translations: [Obesity, unspecified] Onset: 07-15-2016 07-15-2016 Chronic Other screening for suspected conditions (not mental disorders or infectious disease) (3 sources) Patient encounter status; Translations: [Encounter for screening mammogram for malignant neoplasm of breast] Episodic Retinal detachments; defects; vascular occlusion; and retinopathy (14 sources) Retinal lattice degeneration; 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, unspecified eye] Onset: 08-20-2015 08-20-2015 Chronic Past or Other Problems Problem Classification Problem Date Documented Da te Episodic/Chronic Blindness and vision defects (14 sources) Amblyopia of left eye; Translations: [Unspecified amblyopia, left eye] Onset: 08-02-2014 08-02-2014 Episodic Calculus of urinary tract (14 sources) Kidney stone; Translations: [Calculus of kidney] Onset: 09-07-2017 09-07-2017 Episodic Other and unspecified benign neoplasm (14 sources) Polyp of colon; Translations: [Polyp of colon] Onset: 05-24-2013 07-24-2021 Episodic Other circulatory disease (14 sources) Feeling of lump in throat; Translations: [Other specified symptoms and signs involving the circulatory and respiratory systems] Onset: 03-08-2015 03-08-2015 Episodic Other nutritional; endocrine; and metabolic disorders (14 sources) Hyperuricemia; Translations: [Hyperuricemia without signs of inflammatory arthritis and tophaceous disease] Onset: 04-19-2019 04-24-2019 Episodic Sprains and strains (14 sources) Acetabular labrum tear; Translations: [Other sprain of right hip, initial encounter] Onset: 08-09-2021 08-09-2021 Episodic Urinary tract infections (14 sources) Recurrent urinary tract infection; Translations: [Urinary tract infection, site not specified] Onset: 09-07-2017 09-07-2017 Episodic Viral infection (14 sources) COVID-19; Translations: [Other specified viral infection] Onset: 03-22-2021 03-22-2021 Episodic Results Test Name Value Interpretation Reference Range Facil ity Vital Signs Date Time Vital Sign Value Performing Clinician Faci litdaquan 08-02-2023 16:25-0500 Diastolic blood pressure 90 mm[Hg] Silvana Ward APRN.CNP Work Phone: [facility] 08-02-2023 16:25-0500 Heart rate 91 /min Silvana Ward APRN.CNP Work Phone: [facility] 08-02-2023 16:25-0500 Respiratory rate 16 /min Silvana Haagen SECOND FACING BASTER.NURSE RN BSN Work Phone: [facility] 08-02-2023 16:25-0500 SaO2% (BldA) [Mass fraction] 96 % Silvana Haagen SECOND FACING BASTER.NURSE RN BSN Work Phone: [facility] 08-02-2023 16:25-0500 Systolic blood pressure 130 mm[Hg] Silvana Haagen SECOND FACING BASTER.NURSE RN BSN Work Phone: [facility] 04-06-2023 08:02-0400 Body height 169 cm Silvana Haagen SECOND FACING BASTER.NURSE RN BSN Work Phone: [facility] 04-06-2023 08:02-0400 Body weight 111.13 kg Silvana Haagen SECOND FACING BASTER.NURSE RN BSN Work Phone: [facility] 04-06-2023 08:02-0400 Diastolic blood pressure 88 mm[Hg] Silvana Haagen SECOND FACING BASTER.NURSE RN BSN Work Phone: [facility] 04-06-2023 08:02-0400 Heart rate 64 /min Silvana Haagen SECOND FACING BASTER.NURSE RN BSN Work Phone: [facility] 04-06-2023 08:02-0400 Respiratory rate 16 /min Silvana Haagen SECOND FACING BASTER.NURSE RN BSN Work Phone: [facility] 04-06-2023 08:02-0400 SaO2% (BldA) [Mass fraction] 98 % Silvana Haagen SECOND FACING BASTER.NURSE RN BSN Work Phone: [facility] 04-06-2023 08:02-0400 Systolic blood pressure 122 mm[Hg] Silvana Haagen SECOND FACING BASTER.NURSE RN BSN Work Phone: [facility] 03-24-2022 13:01-0400 Body height 170 cm Silvana Haagen SECOND FACING BASTER.NURSE RN BSN Work Phone: [facility] 03-24-2022 13:01-0400 Body weight 111.58 kg Silvana Haagen SECOND FACING BASTER.NURSE RN BSN Work Phone: [facility] 03-24-2022 13:01-0400 Diastolic blood pressure 88 mm[Hg] Silvana Haagen SECOND FACING BASTER.NURSE RN BSN Work Phone: [facility] 03-24-2022 13:01-0400 Heart rate 70 /min Silvana Ward APRN.NURSE RN BSN Work Phone: [facility] 03-24-2022 13:01-0400 Respiratory rate 18 /min Silvana Ward APRN.NURSE RN BSN Work Phone: [facility] 03-24-2022 13:01-0400 SaO2% (BldA) [Mass fraction] 96 % Silvana Ward APRN.NURSE RN BSN Work Phone: [facility] 03-24-2022 13:01-0400 Systolic blood pressure 124 mm[Hg] Silvana Ward APRN.NURSE RN BSN Work Phone: [facility] Encounters Encounter Date Encounter Type Care Provider Facility Start: 08-02-2023 End: 08-03-2023 ambulatory M JANAY MOSS Facility:[facility] Start: 08-02-2023 End: 08-02-2023 Office outpatient visit 25 minutes Silvana Ward APRN.SCOOTER Work Phone: [facility] [place] Procedures Date Procedure Procedure Detail Performing Clinician Start: 08-02-2023 Urnls dip stick/tabl et rgnt auto w/o microscopy Silvana Ward APRN.NURSE RN BSN Work Phone: Start: 04-06-2023 Hemoglobin A1c/Hemoglobin.total in Blood [facility] Provider Start: 06-19-2022 Mammography NORA BERGER-Portia Work Phone: Start: 03-20-2022 Lipid panel [facility] Provid er Start: 03-20-2022 Lipid 1996 panel - S isaut or Plasma NA Moss PA-C Work Phone: Start: 06-12-2020 Mammography NA Moss PA-C Work Phone: Start: 07-29-2016 Colonoscopy NA Moss PA-C Work Phone: Plan of Treatment Date Care Activity Detail Author Start: 09-10-2030 Urine microalbumin profile DTaP,Tdap,Td Vaccine (4 - Td or Tdap) [facility] Start: 03-20-2027 Lipid 1996 panel - Serum or Plasma Lipid Screening [facility] Start: 03-20-2027 LIPID SCREEN LIPID SCREEN [facility] Start: 07-29-2026 Colonoscopy COLONOSCOPY [facility] Start: 07-29-2026 COLORECTAL CANCER SCREENING COLORECTAL CANCER SCREENING [facility] Start: 04-06-2026 DIABETES SCREEN DIABETES SCREEN [facility] Start: 04-06-2026 Diabetes Screening Diabetes Screening [facility] Start: 01-28-2025 Urine microalbumin profile [facility] Start: 08-02-2024 Annual PCP Team Chronic Disease Visit Annual PCP Team Chronic Disease Visit [facility] Start: 06-22-2024 Mammography Mammogram Screening [facility] Start: 04-06-2024 ANNUAL PCP TEAM CHRONIC DISEASE VISIT ANNUAL PCP TEAM CHRONIC DISEASE VISIT [facility] Start: 08-02-2023 End: 11-01-2023 Bacteria identified in Urine by Culture URINE CULTURE Microbiology Routine Gross hematuria Expected: 08/02/2023, Expires: 11/01/2023 [facility] Work Phone: Immunizations Immunization Date Immunization Notes Care Provider Sinan ames 06-22-2022 influenza virus vacc ine, unspecified formulation NA Moss PA-C Work Phone: [facility] 06-13-2019 influenza, seasonal, injectable NA Moss PA-C Work Phone: [facility] 06-05-2016 influenza virus vacc ine, unspecified formulation NA Moss PA-C Work Phone: [facility] 06-12-2015 influenza virus vacc ine, unspecified formulation NA Moss PA-C Work Phone: [facility] 01-28-2015 tetanus toxoid, redu judy diphtheria toxoid, and acellular pertussis vaccine, adsorbed NA Moss PA-C Work Phone: [facility] Payers Date Payer Category Payer Private Health Insurance [facility]ISH[facility]RIZALES [facility] [id number] 2022-Present [phone] [address] [place] [address] O [id number] 2022 Private Health Insurance [id number] 2017 Unknown MMO MMO [employer] xxxx [id number] 2017-Present [address] [place] [address] PPO [id number] 2017 Unknown MMO MMO [employer] xxxx [id number] 2017-Present [address] [place] [address] PPO [id number] Social History Date Type Detail Facility [facility]: [facility] Start: 05-24-2013 Tobacco use and exposure Smoke less tobacco non-user [facility] Start: 09-07-2021 End: 04-06-2023 Alcohol intake Current non-drinker of alcohol (finding) [facility] Start: 04-06-2021 End: 03-24-2022 History SDOH Alcohol Frequency 2 [facility] Start: 04-06-2021 End: 03-24-2022 History SDOH Alcohol Std Drinks 1 [facility] Start: 04-06-2021 History SDOH Social Connections Phone 5 [facility] Start: 04-06-2021 History SDOH Social Connections [employer] 3 [facility] Start: 04-06-2021 History SDOH Social Connections Living 8 [facility] Start: 01-02-2020 Education 16 [facility] Start: 1975 Sex Assigned At Female C [facility] Start: 04-06-2021 End: 08-02-2023 History of Social function [employer] [facility] Start: 04-06-2021 End: 08-02-2023 Social connection and isolation panel [facility] Do you belong to any clubs or organizations such as orthodox groups, unions, fraternal or athletic groups, or school groups? No [facility] Are you now , , , , never or living with a partner? Living with partner [facility] How often to you hav e a drink containing alcohol? Monthly or less [facility] How many standard dr inks containing alcohol do you have on a typical day? 1 or 2 [facility] How often do you hav e 6 or more drinks on 1 occasion? Never [facility] How hard is it for y ou to pay for the very basics like food, housing, medical care, and heating Not hard at all [facility] Do you feel stress - tense, restless, nervous, or anxious, or unable to sleep at night because your mind is troubled all the time - these days [OSQ] Not at all [facility] (I/We) worried wheth er (my/our) food would run out before (I/we) got money to buy more. Never true [facility] Start: 04-17-2020 Gender identity Identifies as female gender (finding) [facility] Start: 04-17-2020 Sexual orientation Heterosexual (fin [place]) [facility] Do you feel stress - tense, restless, nervous, or anxious, or unable to sleep at night because your mind is troubled all the time - these days [OSQ] Only a little [facility] Clinical Notes 03-08-2015 to 08-02-2023 Silvana Ward APRN.NURSE RN BSN - 08/02/2023 4:34 PM ESTTelephone Encounter - Silvana Ward APRN.SCOOTER - 06/22/2023 4:36 PM EDTTelephone Encounter - Mary Broussard Ma - 06/22/2023 11:15 AM EDT Note Date & Type Note Facility 08-02-2023 Note HNO ID: [id number] Author: Silvana Ward APRN.NURSE RN BSN Service: ? Author Type: Nurse Practitioner Type: Progress Notes Filed: 08/02/2023 5:41 PM Note Text: This is a 48 year old female who presents today with: Patient presents with: Hematuria HISTORY OF PRESENT ILLNESS: Christin Davila is a 48 year old female. Patient presents with: Hematuria Pt presents today with hematuria that started yesterday morning. Got up yesterday morning and had blood in the urine. Toilet water was red. Refers that last evening, it had cleared up. This morning had blood in the urine again. No pain. No fevers/chills. No frequency/urgency. Some stress incontinence, but not unusual. She has a hx of stones. Denies any pain resembling any obstructing kidney stones, that she has had in the past. Feels like she is emptying bladder completely. She did have a right upper quadrant ultrasound on 06/22/2023. This showed hepatomegaly with diffuse fatty infiltration of the liver, no discrete lesion. Previous cholecystectomy. Nonobstructing right nephrolithiasis. PAST MEDICAL HISTORY: PAST MEDICAL HISTORY Diagnosis Date Abnormal computed tomography angiography (CTA) of abdomen and pelvis 09/03/2021 CT ab/pel w/con: fatty liver, 3mm stone right kdney Anxiety Benign neoplasm of colon Fatty liver seen on CT Kidney stones last one 2004 Lab test positive for detection of COVID-19 virus 03/19/2021 Sx onset 03/16/21, monoclonal Ab tx per pulmonology [facility] Non morbid obesity 07/15/2016 S/P laparoscopic appendectomy 09/03/2021 PAST SURGICAL HISTORY Procedure Laterality Date ADENOIDECTOMY PRIMARY Adenoidectomy APPENDECTOMY 09/03/2021 DELIVERY ONLY , low transverse CHOLECYSTECTOMY 2001 or 2002 COLONOSCOPY 06/23/2006 adenomatous polyp COLONOSCOPY 07/24/2009 normal COLONOSCOPY FLX DX W/COLLJ SPEC WHEN PFRMD 07/08/2012 hyperplastic COLONOSCOPY FLX DX W/COLLJ SPEC WHEN PFRMD 07/29/2016 Colonoscopy (MAC) DILATION AND CURETTAGE DXAND/THER NONOBSTETRIC Dilation AND curettage ESOPHAGOGASTRODUODENOSCOPY TRANSORAL DIAGNOSTIC 07/29/2016 EGD (MAC) F LITHOTRIPSY X 2 PAST SURGICAL HISTORY OF pilonidal cyst TONSILLECTOMY PRIMARY/SECONDARY AGE 12/> TOTAL ABDOMINAL HYSTERECT W/WO RMVL TUBE OVARY 08/30/2011 due to bleeding, has ovaries ALLERGIES Latex, Penicillins, and Sulfa (Sulfonamide Antibiotics) MEDICATIONS Current Outpatient Medications Medication Sig metFORMIN ER (GLUCOPHAGE XR) 500 mg 24 hr tablet Take 1 tablet by mouth daily with breakfast. sertraline (ZOLOFT) 100 mg tablet Take 1 tablet by mouth once daily. lisinopril (ZESTRIL) 10 mg tablet Take 1 tablet by mouth once daily. No current facility-administered medications for this visit. FAMILY HISTORY Problem Relation Age of Onset Hypertension Mother other (no breast ca) Other other (no colon ca) Other other (no cad) Other Heart Failure Maternal Grandmother other (dm) Maternal Grandmother other (sudden ) Paternal Grandmother Social History Tobacco Use Smoking status: Never Smokeless tobacco: Never Substance Use Topics Alcohol use: No Drug use: No EXAM: BP 130/90 Pulse 91 Resp 16 SpO2 96% PHYSICAL EXAM: General Appearance: Well appearing, alert, in no acute distress, well-hydrated, well nourished.. Skin: Skin color, texture, turgor normal, no suspicious rashes or lesions. Head: Normocephalic, no masses, lesions, tenderness or abnormalities. Eyes: Anicteric sclera. Pupils are equally round and reactive to light. Extraocular movements are intact. . Lungs: Lungs clear to auscultation. No wheezing, rhonchi, rales.. Heart: RRR without murmur, gallop, or rubs. No ectopy. Abdomen: Abdomen soft, non-tender. Bowel sounds normal. No masses, organomegaly, Negative CVA tenderness. Neurologic: Gait normal. ASSESSMENT/PLAN: 1. Gross hematuria - ICD9: 599.71, ICD10: R31.0 New onset of painless gross hematuria. Urine dip here showed blood and protein. She needs to have any further testing done at [facility]. She will get further urinalysis/culture and blood work done there. Get CT urogram. Urology referral placed. - UA DIP, URINE (POC) - URINALYSIS, WITH MICROSCOPIC - URINE CULTURE - CBC + DIFF - CT UROGRAM WO/W IVCON - IV CONTRAST (RADIOLOGY PROCEDURE) - SODIUM CHLORIDE 0.9 % INTRAVENOUS SOLUTION - BASIC METABOLIC PNL - CONSULT TO UROLOGY Discussed with patient that if she has worsening of symptoms (pain, n/v, fever, inability to urinated, etc) she should proceed to the ER. Discussed treatment plan and patient voices understanding. Patient's questions answered appropriately. Medications and potential side effects were discussed and patient voices understanding. Return to the office as scheduled or as needed for worsening/no improvement. Silvana Ward APRN.[facility] 08-02-2023 History of Presen t illness Narrative This is a 48 year old female who presents today with: Patient presents with: Hematuria HISTORY OF PRESENT ILLNESS: Christin Davila is a 48 year old female. Patient presents with: Hematuria Pt presents today with hematuria that started yesterday morning. Got up yesterday morning and had blood in the urine. Toilet water was red. Refers that last evening, it had cleared up. This morning had blood in the urine again. No pain. No fevers/chills. No frequency/urgency. Some stress incontinence, but not unusual. She has a hx of stones. Denies any pain resembling any obstructing kidney stones, that she has had in the past. Feels like she is emptying bladder completely. She did have a right upper quadrant ultrasound on 06/22/2023. This showed hepatomegaly with diffuse fatty infiltration of the liver, no discrete lesion. Previous cholecystectomy. Nonobstructing right nephrolithiasis. PAST MEDICAL HISTORY: PAST MEDICAL HISTORY Diagnosis Date Abnormal computed tomography angiography (CTA) of abdomen and pelvis 09/03/2021 CT ab/pel w/con: fatty liver, 3mm stone right kdney Anxiety Benign neoplasm of colon Fatty liver seen on CT Kidney stones last one 2004 Lab test positive for detection of COVID-19 virus 03/19/2021 Sx onset 03/16/21, monoclonal Ab tx per pulmonology [facility] Non morbid obesity 07/15/2016 S/P laparoscopic appendectomy 09/03/2021 PAST SURGICAL HISTORY Procedure Laterality Date ADENOIDECTOMY PRIMARY <AGE 12 Adenoidectomy APPENDECTOMY 09/03/2021 DELIVERY ONLY , low transverse CHOLECYSTECTOMY 2001 or 2002 COLONOSCOPY 06/23/2006 adenomatous polyp COLONOSCOPY 07/24/2009 normal COLONOSCOPY FLX DX W/COLLJ SPEC WHEN PFRMD 07/08/2012 hyperplastic COLONOSCOPY FLX DX W/COLLJ SPEC WHEN PFRMD 07/29/2016 Colonoscopy (MAC) DILATION & CURETTAGE DX&/THER NONOBSTETRIC Dilation & curettage ESOPHAGOGASTRODUODENOSCOPY TRANSORAL DIAGNOSTIC 07/29/2016 EGD (MAC) F LITHOTRIPSY X 2 PAST SURGICAL HISTORY OF pilonidal cyst TONSILLECTOMY PRIMARY/SECONDARY AGE 12/> TOTAL ABDOMINAL HYSTERECT W/WO RMVL TUBE OVARY 08/30/2011 due to bleeding, has ovaries ALLERGIES Latex, Penicillins, and Sulfa (Sulfonamide Antibiotics) MEDICATIONS Current Outpatient Medications Medication Sig metFORMIN ER (GLUCOPHAGE XR) 500 mg 24 hr tablet Take 1 tablet by mouth daily with breakfast. sertraline (ZOLOFT) 100 mg tablet Take 1 tablet by mouth once daily. lisinopril (ZESTRIL) 10 mg tablet Take 1 tablet by mouth once daily. No current facility-administered medications for this visit. FAMILY HISTORY Problem Relation Age of Onset Hypertension Mother other (no breast ca) Other other (no colon ca) Other other (no cad) Other Heart Failure Maternal Grandmother other (dm) Maternal Grandmother other (sudden ) Paternal Grandmother Social History Tobacco Use Smoking status: Never Smokeless tobacco: Never Substance Use Topics Alcohol use: No Drug use: No EXAM: BP 130/90 Pulse 91 Resp 16 SpO2 96% PHYSICAL EXAM: General Appearance: Well appearing, alert, in no acute distress, well-hydrated, well nourished.. Skin: Skin color, texture, turgor normal, no suspicious rashes or lesions. Head: Normocephalic, no masses, lesions, tenderness or abnormalities. Eyes: Anicteric sclera. Pupils are equally round and reactive to light. Extraocular movements are intact. . Lungs: Lungs clear to auscultation. No wheezing, rhonchi, rales.. Heart: RRR without murmur, gallop, or rubs. No ectopy. Abdomen: Abdomen soft, non-tender. Bowel sounds normal. No masses, organomegaly, Negative CVA tenderness. Neurologic: Gait normal. ASSESSMENT/PLAN: 1. Gross hematuria - ICD9: 599.71, ICD10: R31.0 New onset of painless gross hematuria. Urine dip here showed blood and protein. She needs to have any further testing done at [facility]. She will get further urinalysis/culture and blood work done there. Get CT urogram. Urology referral placed. - UA DIP, URINE (POC) - URINALYSIS, WITH MICROSCOPIC - URINE CULTURE - CBC + DIFF - CT UROGRAM WO/W IVCON - IV CONTRAST (RADIOLOGY PROCEDURE) - SODIUM CHLORIDE 0.9 % INTRAVENOUS SOLUTION - BASIC METABOLIC PNL - CONSULT TO UROLOGY Discussed with patient that if she has worsening of symptoms (pain, n/v, fever, inability to urinated, etc) she should proceed to the ER. Discussed treatment plan and patient voices understanding. Patient's questions answered appropriately. Medications and potential side effects were discussed and patient voices understanding. Return to the office as scheduled or as needed for worsening/no improvement. Silvana Ward APRN.NURSE RN BSN documented in this encounter [facility] 06-22-2023 Miscellaneous Notes Formattin g of this note might be different from the original. Mammo normal. Pt notified via mychart. Silvana Ward APRN.SCOOTER Office received Mammogram results as ordered by Silvana. See results below and advise. Mary Broussard [facility] - Mammography [ID [id number]] documented in this encounter [facility] 05-24-2023 Miscellaneous Notes Formattin g of this note might be different from the original. Form faxed. Leander Swanson LPN Form complete -- please fax back, as requested. Silvana Ward APRN.SCOOTER Pt called and she reports she saw Silvana Ward for her wellness exam on 04/06/23. Pt works for [employer] and has a short form that needs to be completed and faxed back to her. FAX: [phone]. Type of form: 2022 Healthy Living program form Form received via fax When form is completed, Fax form to [phone] Form has been delivered to Silvana Ward's office. Laid on nurses desk. Silvana is out of the office. Pt is asking to have this filled out when she returns. Linda Menjivar LPN documented in this encounter [facility] 05-06-2023 Miscellaneous Notes Formattin g of this note is different from the original. POPULATION HEALTH NAVIGATION OUTREACH Action/I 1st call-LVM and [email or web address] message regarding consult to ORTHOPEDICS. Patient Identified by Name and : NO Outreach Outcome/Action Unable to reach patient: Left message [employer] message sent Did you use a PCP flex slot to schedule this appointment? N/A Reason for Outreach Care Gap or Scheduling/Wellness visits Payer: Payor: AETNA / Plan: AETNA [facility] / Product Type: PPO / Care Gap Reviewed:: Specialty Scheduling Reminder: Reminder note to check Health Maintenance for items below Health Maintenance items due: HEPATITIS B(1 of 3 - 3-dose series) Never done COVID-19 VACCINE(1) Never done BP CONTROLLED (<130/80) due on 05/20/2021 INFLUENZA(1) due on 04/30/2023 MAMMOGRAM due on 06/19/2023 Navigation Signature: Kristi Flowers May 06, 2023 11:20 AM documented in this encounter [facility] 04-06-2023 Note HNO ID: [id number] Author: Silvana Ward APRN.NURSE RN BSN Service: ? Author Type: Nurse Practitioner Type: Progress Notes Filed: 04/07/2023 7:52 AM Note Text: This is a 48 year old female who presents today with: Patient presents with: Yearly Exam HISTORY OF PRESENT ILLNESS: Christin Davila is a 48 year old female. Patient presents with: Yearly Exam Pt presents today for annual. Had labwork and has some concerns. Refers that she did her fasting labwork. Sugar was elevated. Liver enzymes were elevated. Hx of fatty liver. Bilateral elbow pain. Bothering her since 6-12 months. Lateral aspect of elbows. Started in the right elbow and not in both. Left greater than right. Pt is right handed. Used tennis elbow straps. Continues with some abdominal pain. Stepped on a ladder that wasn't fully lowered and then the ladder slid and hit the abdomen. Refers that a few years ago, had a hematoma on the abdomen. Gets twinges of pain. Nothing excruciating. Going to go to [facility] for skin cancer screening. Requesting a referral for in the event she needs any procedures while there. REVIEW OF SYSTEMS GENERAL: No weight loss, malaise or fevers/chills. + fatigue. HEENT: Negative for frequent or significant headaches, No changes in hearing. Worsening vision. NECK: Negative for lumps, goiter, pain and significant neck swelling RESPIRATORY: Negative for cough, hemoptysis, wheezing, dyspnea or shortness of breath CARDIOVASCULAR: Negative for chest pain, leg swelling, orthopnea, or palpitations. Gets some swelling that improves w/ sleeping. GI: No nausea, vomiting. Alternates diarrhea/constipation. No hematochezia/melena. No heartburn or reflux symptoms. Colonoscopy 2020 and 5 year clearance. : No history of dysuria, frequency or incontinence. S/p hyster. MUSCULOSKELETAL: see above. SKIN: Negative for lesions, rash, and itching ENDOCRINE: Negative for cold or heat intolerance, polyuria, polydipsia and goiter NEURO: No history of headaches, syncope, paralysis, seizures or tremors HTN: Patient is compliant with meds Yes Monitors bp at home: will check if she gets a headache. Denies side effects: Yes. Chest pain: No. Dyspnea: No. Edema: some dependent. Palpitations: No. Syncope: No. Headache: No. Dizziness: No. Mood: Will get anxiety, but able to real it back in. PAST MEDICAL HISTORY: PAST MEDICAL HISTORY Diagnosis Date Abnormal computed tomography angiography (CTA) of abdomen and pelvis 09/03/2021 CT ab/pel w/con: fatty liver, 3mm stone right kdney Anxiety Benign neoplasm of colon Fatty liver seen on CT Kidney stones last one 2004 Lab test positive for detection of COVID-19 virus 03/19/2021 Sx onset 03/16/21, monoclonal Ab tx per pulmonology [facility] Non morbid obesity 07/15/2016 S/P laparoscopic appendectomy 09/03/2021 PAST SURGICAL HISTORY Procedure Laterality Date ADENOIDECTOMY PRIMARY Adenoidectomy APPENDECTOMY 09/03/2021 DELIVERY ONLY , low transverse CHOLECYSTECTOMY 2001 or 2002 COLONOSCOPY 06/23/2006 adenomatous polyp COLONOSCOPY 07/24/2009 normal COLONOSCOPY FLX DX W/COLLJ SPEC WHEN PFRMD 07/08/2012 hyperplastic COLONOSCOPY FLX DX W/COLLJ SPEC WHEN PFRMD 07/29/2016 Colonoscopy (MAC) DILATION AND CURETTAGE DXAND/THER NONOBSTETRIC Dilation AND curettage ESOPHAGOGASTRODUODENOSCOPY TRANSORAL DIAGNOSTIC 07/29/2016 EGD (MAC) F LITHOTRIPSY X 2 PAST SURGICAL HISTORY OF pilonidal cyst TONSILLECTOMY PRIMARY/SECONDARY AGE 12/> TOTAL ABDOMINAL HYSTERECT W/WO RMVL TUBE OVARY 08/30/2011 due to bleeding, has ovaries ALLERGIES Latex, Penicillins, and Sulfa (Sulfonamide Antibiotics) MEDICATIONS Current Outpatient Medications Medication Sig sertraline (ZOLOFT) 100 mg tablet Take 1 tablet by mouth once daily. lisinopril (ZESTRIL, PRINIVIL) 10 mg tablet Take 1 tablet by mouth once daily. COMPOUNDED PRESCRIPTION Consult to Massage Therapy ICD-10: M54.2 Current Facility-Administered Medications Medication Dose Route Frequency perflutren lipid microspheres 1.3 mL in NaCl (PF) 0.9% 10 mL injection (DEFINITY) INTRAVENOUS DIRECTED PRN sodium chloride 0.9 % (flush) 10 mL (BD POSIFLUSH) 10 mL INTRAVENOUS DIRECTED PRN FAMILY HISTORY Problem Relation Age of Onset Hypertension Mother other (no breast ca) Other other (no colon ca) Other other (no cad) Other Heart Failure Maternal Grandmother other (dm) Maternal Grandmother other (sudden ) Paternal Grandmother Social History Tobacco Use Smoking status: Never Smokeless tobacco: Never Substance Use Topics Alcohol use: No Drug use: No EXAM: BP 122/88 Pulse 64 Resp 16 Ht 169 cm (5' 6.54 ) Wt 111.1 kg (245 lb) SpO2 98% BMI 38.91 kg/m? PHYSICAL EXAM: General Appearance: Well appearing, alert, in no acute distress, well-hydrated, well nourished.. Skin: Skin color, texture, turgor normal, no nelson (more content not included)... [facility] 04-06-2023 Instructions Silvana Ward APRN.NURSE RN BSN - 04/06/2023 9:04 AM EDT Get the repeat labs. Schedule with ortho. Schedule with dermatology. Schedule ultrasound. Schedule mammogram. Health Promotion: - Eat healthy -- go to [employer] to get started - Have a yearly physical - Mammogram yearly after age 40 - Get at least 30 minutes of physical activity daily - Get at least 7 to 8 hours of sleep each night - Reach and maintain a healthy weight - Get help to quit or don't start smoking - Limit alcohol use to one drink or less - Do not use illegal drugs or misuse prescription drugs - Wear a helmet when riding a bike and wear protective gear for sports - Wear a seatbelt in cars and not text and drive - Wear sunscreen documented in this encounter [facility] 04-06-2023 History of Presen t illness Narrative This is a 48 year old female who presents today with: Patient presents with: Yearly Exam HISTORY OF PRESENT ILLNESS: Christin Davila is a 48 year old female. Patient presents with: Yearly Exam Pt presents today for annual. Had labwork and has some concerns. Refers that she did her fasting labwork. Sugar was elevated. Liver enzymes were elevated. Hx of fatty liver. Bilateral elbow pain. Bothering her since 6-12 months. Lateral aspect of elbows. Started in the right elbow and not in both. Left greater than right. Pt is right handed. Used tennis elbow straps. Continues with some abdominal pain. Stepped on a ladder that wasn't fully lowered and then the ladder slid and hit the abdomen. Refers that a few years ago, had a hematoma on the abdomen. Gets twinges of pain. Nothing excruciating. Going to go to [facility] for skin cancer screening. Requesting a referral for in the event she needs any procedures while there. REVIEW OF SYSTEMS GENERAL: No weight loss, malaise or fevers/chills. + fatigue. HEENT: Negative for frequent or significant headaches, No changes in hearing. Worsening vision. NECK: Negative for lumps, goiter, pain and significant neck swelling RESPIRATORY: Negative for cough, hemoptysis, wheezing, dyspnea or shortness of breath CARDIOVASCULAR: Negative for chest pain, leg swelling, orthopnea, or palpitations. Gets some swelling that improves w/ sleeping. GI: No nausea, vomiting. Alternates diarrhea/constipation. No hematochezia/melena. No heartburn or reflux symptoms. Colonoscopy 2020 and 5 year clearance. : No history of dysuria, frequency or incontinence. S/p hyster. MUSCULOSKELETAL: see above. SKIN: Negative for lesions, rash, and itching ENDOCRINE: Negative for cold or heat intolerance, polyuria, polydipsia and goiter NEURO: No history of headaches, syncope, paralysis, seizures or tremors HTN: Patient is compliant with meds Yes Monitors bp at home: will check if she gets a headache. Denies side effects: Yes. Chest pain: No. Dyspnea: No. Edema: some dependent. Palpitations: No. Syncope: No. Headache: No. Dizziness: No. Mood: Will get anxiety, but able to real it back in. PAST MEDICAL HISTORY: PAST MEDICAL HISTORY Diagnosis Date Abnormal computed tomography angiography (CTA) of abdomen and pelvis 09/03/2021 CT ab/pel w/con: fatty liver, 3mm stone right kdney Anxiety Benign neoplasm of colon Fatty liver seen on CT Kidney stones last one 2004 Lab test positive for detection of COVID-19 virus 03/19/2021 Sx onset 03/16/21, monoclonal Ab tx per pulmonology [facility] Non morbid obesity 07/15/2016 S/P laparoscopic appendectomy 09/03/2021 PAST SURGICAL HISTORY Procedure Laterality Date ADENOIDECTOMY PRIMARY <AGE 12 Adenoidectomy APPENDECTOMY 09/03/2021 DELIVERY ONLY , low transverse CHOLECYSTECTOMY 2001 or 2003 COLONOSCOPY 06/23/2006 adenomatous polyp COLONOSCOPY 07/24/2009 normal COLONOSCOPY FLX DX W/COLLJ SPEC WHEN PFRMD 07/08/2012 hyperplastic COLONOSCOPY FLX DX W/COLLJ SPEC WHEN PFRMD 07/29/2016 Colonoscopy (MAC) DILATION & CURETTAGE DX&/THER NONOBSTETRIC Dilation & curettage ESOPHAGOGASTRODUODENOSCOPY TRANSORAL DIAGNOSTIC 07/29/2016 EGD (MAC) F LITHOTRIPSY X 2 PAST SURGICAL HISTORY OF pilonidal cyst TONSILLECTOMY PRIMARY/SECONDARY AGE 12/> TOTAL ABDOMINAL HYSTERECT W/WO RMVL TUBE OVARY 08/30/2011 due to bleeding, has ovaries ALLERGIES Latex, Penicillins, and Sulfa (Sulfonamide Antibiotics) MEDICATIONS Current Outpatient Medications Medication Sig sertraline (ZOLOFT) 100 mg tablet Take 1 tablet by mouth once daily. lisinopril (ZESTRIL, PRINIVIL) 10 mg tablet Take 1 tablet by mouth once daily. COMPOUNDED PRESCRIPTION Consult to Massage Therapy ICD-10: M54.2 Current Facility-Administered Medications Medication Dose Route Frequency perflutren lipid microspheres 1.3 mL in NaCl (PF) 0.9% 10 mL injection (DEFINITY) INTRAVENOUS DIRECTED PRN sodium chloride 0.9 % (flush) 10 mL (BD POSIFLUSH) 10 mL INTRAVENOUS DIRECTED PRN FAMILY HISTORY Problem Relation Age of Onset Hypertension Mother other (no breast ca) Other other (no colon ca) Other other (no cad) Other Heart Failure Maternal Grandmother other (dm) Maternal Grandmother other (sudden ) Paternal Grandmother Social History Tobacco Use Smoking status: Never Smokeless tobacco: Never Substance Use Topics Alcohol use: No Drug use: No EXAM: BP 122/88 Pulse 64 Resp 16 Ht 169 cm (5' 6.54 ) Wt 111.1 kg (245 lb) SpO2 98% BMI 38.91 kg/m PHYSICAL EXAM: General Appearance: Well appearing, alert, in no acute distress, well-hydrated, well nourished.. Skin: Skin color, texture, turgor normal, no suspicious rashes or lesions. Head: Normocephalic, no masses, lesions, tenderness or abnormalities. Eyes: Anicteric sclera. Pupils are equally round and reactive to light. Extraocular movements are intact. . Ears: External ears normal, canals clear. Oropharynx: Lips, mucosa, and tongue normal, teeth and gums normal, oropharynx normal. Neck: Supple, no adenopathy; thyroid symmetric, normal size, no bruits. Lungs: Lungs clear to auscultation. No wheezing, rhonchi, rales.. Heart: RRR without murmur, gallop, or rubs. No ectopy. Abdomen: Normal abdominal exam, Abdomen soft, non-tender. Bowel sounds normal. No masses, organomegaly. Extremities: No deformities, edema, skin discoloration, clubbing or cyanosis. Good capillary refill. . Neurologic: Gait normal. ASSESSMENT/PLAN: 1. Wellness examination - ICD9: V70.0, ICD10: Z00.00 (primary diagnosis) - Counseled on healthy diet and regular exercise - Mammogram ordered - exam recommended once yearly - Follow up for annual exam in one year Health Promotion: - Eat healthy -- go to [email or web address] to get started - Have a yearly physical - Mammogram yearly after age 40 - Get at least 30 minutes of physical activity daily - Get at least 7 to 8 hours of sleep each night - Reach and maintain a healthy weight - Get help to quit or don't start smoking - Limit alcohol use to one drink or less - Do not use illegal drugs or misuse prescription drugs - Wear a helmet when riding a bike and wear protective gear for sports - Wear a seatbelt in cars and not text and drive - Wear sunscreen 2. Adjustment reaction with anxiety and depression - ICD9: 309.28, ICD10: F43.23 Doing well with current medication/dose. - SERTRALINE 100 MG TABLET 3. Skin cancer screening - ICD9: V76.43, ICD10: Z12.83 - CONSULT TO DERMATOLOGY 4. Lateral epicondylitis of both elbows - ICD9: 726.32, ICD10: M77.11, M77.12 Continue tennis elbow straps. Consider sleeping with cock-up splints. Nsaids. Exercises given. Referral to ortho for possible injection. - CONSULT TO ORTHOPAEDICS 5. Elevated liver enzymes - ICD9: 790.5, ICD10: R74.8 Likely related to fatty liver. Will repeat labs and get updated ultrasound. - US ABD RIGHT UPPER QUADRANT - HEPATIC FUNCTION PNL - HEP ACUTE PANEL BL 6. Elevated fasting glucose - ICD9: 790.21, ICD10: R73.01 Get A1C - HGB A1C 7. Visit for screening mammogram - ICD9: V76.12, ICD10: Z12.31 - Set up for mammogram, yearly mammogram recommended - [facility] SCREENING [facility] Discussed treatment plan and patient voices understanding. Patient's questions answered appropriately. Medications and potential side effects were discussed and patient voices understanding. Return to the office as scheduled or as needed for worsening/no improvement. Silvana Ward APRN.NURSE RN BSN documented in this encounter [facility] 06-02-2022 Miscellaneous Notes Formattin g of this note might be different from the original. Received via fax approval letter from pt insurance. Pt is referral approved from 06/02/22 thru 06/02/23. Approval letter faxed to Dr. Josue's office. Pt notified via . Leander Swanson LPN Referral entered for Dr. Josue on 05/22 and is currently pending authorization. Leander Swanson LPN please see prior message: print and send Thanks, Giancarlo Moss PA-C Kim with [employer] called in and reports Pts insurance needs an order for Pt to see a Building Guard Deputy Sheriff. Let her know that Pt already had a consult in and she states that she also needs one sent to her insurance. She states the phone # to call is [phone]. Pt is seeing Dr Josue. documented in this encounter [facility] 04-24-2022 Miscellaneous Notes Formattin g of this note might be different from the original. Script sent. Silvana Ward APRN.CNP Patient notified and verbalized understanding patient is going to see the [facility] cardiology. She needs refills on her zoloft and lisinopril- pended please sign Daiana Ramos Cma Can please let patient know that we received her echocardiogram results. It does show some mild-moderate calcification around her mitral valve. Her heart function/strength is normal. So, likely nothing to do about this at this time other to continue to watch for any progression/worsening. Let's go ahead and get her set up with cardiology for further recommendations. Referral placed. Silvana Ward APRN.CNP Please review in scanned documents Cardiac Echo was done that you ordered 03/24 Ania Bruce Ma documented in this encounter [facility] 03-26-2022 Miscellaneous Notes Pt notified of results via [employer]. Tracey Naik Ma Can please let patient know that her additional lab work was normal. Office received lab results that were ordered by Silvana Ward CNP. Will route lab results to to review and advise. Mary Broussard Ma documented in this encounter [facility] 03-24-2022 Instructions Silvana Ward APRN.CNP - 03/24/2022 1:40 PM EDT 1. Schedule EKG, echo, and event monitor. 2. Get labs. 3. If you get any sustained palpitations, or palpitations associated w/ other symptoms (pain, shortness of breath, dizziness, etc) -- go to the ER. Health Promotion: - Eat healthy go to [employer] to get started - Have a yearly physical - Mammogram yearly after age 40 - Get at least 30 minutes of physical activity daily - Get at least 7 to 8 hours of sleep each night - Reach and maintain a healthy weight - Get help to quit or don't start smoking - Limit alcohol use to one drink or less - Do not use illegal drugs or misuse prescription drugs - Wear a helmet when riding a bike and wear protective gear for sports - Wear a seatbelt in cars and not text and drive - Wear sunscreen documented in this encounter [facility] 03-24-2022 History of Presen t illness Narrative This is a 47 year old female who presents today with: Patient presents with: Yearly Exam HISTORY OF PRESENT ILLNESS: Christin Davila is a 47 year old female. 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 Concern: Gets palpitations. Sometimes will get a deep ache in the chest, but not necessarily associated w/ the palpitations. Gets the fluttering a couple of times a week. No SOB. No dizziness associated with it. No pain associated with it. No family hx of heart disease. Mood Sertraline has been effective, when she takes it. Admits that she will miss doses. HTN No problems with lisinopril. Takes when she remembers. REVIEW OF SYSTEMS GENERAL: No weight loss, malaise or fevers/chills HEENT: Negative for frequent or significant headaches, No changes in hearing or vision. NECK: Negative for lumps, goiter, pain and significant neck swelling RESPIRATORY: Negative for cough, hemoptysis, wheezing, dyspnea or shortness of breath CARDIOVASCULAR: Negative for chest pain, orthopnea. Gets some dependent edema. Refers 6 years ago, felt like a navjot horse in her legs, and has had swelling since that time. Refers that she has had imaging, which has been negative. GI: No nausea, vomiting, or diarrhea/constipation. No hematochezia/melena. No heartburn or reflux symptoms. Had colonoscopy - June. : No history of dysuria, frequency or incontinence MUSCULOSKELETAL: Negative for joint pain or swelling. SKIN: Negative for lesions, rash, and itching ENDOCRINE: Negative for cold or heat intolerance, polyuria, polydipsia and goiter NEURO: No history of headaches, syncope, paralysis, seizures or tremors PAST MEDICAL HISTORY: PAST MEDICAL HISTORY Diagnosis Date Abnormal computed tomography angiography (CTA) of abdomen and pelvis 09/03/2021 CT ab/pel w/con: fatty liver, 3mm stone right kdney Anxiety Benign neoplasm of colon Fatty liver seen on CT Kidney stones last one 2004 Lab test positive for detection of COVID-19 virus 03/19/2021 Sx onset 03/16/21, monoclonal Ab tx per pulmonology [facility] Non morbid obesity 07/15/2016 S/P laparoscopic appendectomy 09/03/2021 PAST SURGICAL HISTORY Procedure Laterality Date ADENOIDECTOMY PRIMARY <AGE 12 Adenoidectomy APPENDECTOMY 09/03/2021 DELIVERY ONLY , low transverse CHOLECYSTECTOMY 2001 or 2002 COLONOSCOPY 06/23/2006 adenomatous polyp COLONOSCOPY 07/24/2009 normal COLONOSCOPY FLX DX W/COLLJ SPEC WHEN PFRMD 07/08/2012 hyperplastic COLONOSCOPY FLX DX W/COLLJ SPEC WHEN PFRMD 07/29/2016 Colonoscopy (MAC) DILATION & CURETTAGE DX&/THER NONOBSTETRIC Dilation & curettage ESOPHAGOGASTRODUODENOSCOPY TRANSORAL DIAGNOSTIC 07/29/2016 EGD (MAC) F LITHOTRIPSY X 2 PAST SURGICAL HISTORY OF pilonidal cyst TONSILLECTOMY PRIMARY/SECONDARY AGE 12/> TOTAL ABDOMINAL HYSTERECT W/WO RMVL TUBE OVARY 08/30/2011 due to bleeding, has ovaries ALLERGIES Latex, Penicillins, and Sulfa (Sulfonamide Antibiotics) MEDICATIONS Current Outpatient Medications Medication Sig sertraline (ZOLOFT) 100 mg tablet Take 1 tablet by mouth once daily. lisinopril (ZESTRIL, PRINIVIL) 10 mg tablet Take 1 tablet by mouth once daily. COMPOUNDED PRESCRIPTION Consult to Massage Therapy ICD-10: M54.2 No current facility-administered medications for this visit. FAMILY HISTORY Problem Relation Age of Onset Hypertension Mother other (no breast ca) Other other (no colon ca) Other other (no cad) Other Heart Failure Maternal Grandmother other (dm) Maternal Grandmother other (sudden ) Paternal Grandmother Social History Tobacco Use Smoking status: Never Smoker Smokeless tobacco: Never Used Substance Use Topics Alcohol use: No Drug use: No EXAM: BP 124/88 Pulse 70 Resp 18 Ht 170 cm (5' 6.93 ) Wt 111.6 kg (246 lb) SpO2 96% BMI 38.61 kg/m PHYSICAL EXAM: General Appearance: Well appearing, alert, in no acute distress, well-hydrated, well nourished.. Skin: Skin color, texture, turgor normal, no suspicious rashes or lesions. Head: Normocephalic, no masses, lesions, tenderness or abnormalities. Eyes: Anicteric sclera. Pupils are equally round and reactive to light. Extraocular movements are intact. . Ears: External ears normal, canals clear, Normal TMs bilaterally. Oropharynx: Lips, mucosa, and tongue normal, teeth and gums normal, oropharynx normal. Neck: Supple, no adenopathy; thyroid symmetric, normal size, no bruits. Lungs: Lungs clear to auscultation. No wheezing, rhonchi, rales.. Heart: RRR without murmur, gallop, or rubs. No ectopy. Abdomen: Abdomen soft, non-tender. Bowel sounds normal. No masses, organomegaly. Extremities: No deformities, edema, skin discoloration, clubbing or cyanosis. Good capillary refill. . Neurologic: Gait normal. ASSESSMENT/PLAN: 1. Wellness examination - ICD9: V70.0, ICD10: Z00.00 (primary diagnosis) - Follow up for annual exam in one year Form complete. Health Promotion: - Eat healthy go to [employer] to get started - Have a yearly physical - Mammogram yearly after age 40 - Get at least 30 minutes of physical activity daily - Get at least 7 to 8 hours of sleep each night - Reach and maintain a healthy weight - Get help to quit or don't start smoking - Limit alcohol use to one drink or less - Do not use illegal drugs or misuse prescription drugs - Wear a helmet when riding a bike and wear protective gear for sports - Wear a seatbelt in cars and not text and drive - Wear sunscreen 2. Palpitations - ICD9: 785.1, ICD10: R00.2 Will go ahead and work-up palpitations. Discussed if she gets any sustained palpitations or palpitations accompanied by other symptoms, she should proceed to the ER. - ECG COMPLETE - EVENT MONITOR - MAGNESIUM BLD - TSH BLD - T4 FREE/FREE THYROX - ECHO - PERFLUTREN LIPID MICROSPHERES 1.1 MG/ML INJECTION IN NS 10 ML - SODIUM CHLORIDE 0.9 % (FLUSH) INJECTION SYRINGE 3. Hypertension, essential - ICD9: 401.9, ICD10: I10 - good control - Continue current medication(s) - Recommended regular aerobic exercise. - Recommend home blood pressure monitoring, to bring results in on next visit - Goal of BP <130/80 4. Anxiety with depression - ICD9: 300.4, ICD10: F41.8 Controlled. Continue same medications. Discussed treatment plan and patient voices understanding. Patient's questions answered appropriately. Medications and potential side effects were discussed and patient voices understanding. Return to the office as scheduled or as needed for worsening/no improvement. Silvana Ward APRN.NURSE RN BSN This note was partially generated using [employer] voice recognition system. Note was reviewed for accuracy. There may be minor misspellings or grammar miscues with [employer] voice recognition. documented in this encounter [facility] documented as of this encounter (statuses as of 03/20/2022) [facility]07-10-2015 History of Past illness Narrative* Problem Noted Date Resolved Date Laryngitis 03/08/2015 07/15/2016 Counseling and coordination of care 01/29/2015 05/14/2015 documented as of this encounter (statuses as of 03/23/2022) [facility]2015 History of Past illness Narrative* Problem Noted Date Resolved Date Laryngitis 03/08/2015 07/15/2016 Counseling and coordination of care 01/29/2015 05/14/2015 documented as of this encounter (statuses as of 03/24/2022) [facility] History of Past illness Narrative* Problem Noted Date Resolved Date Laryngitis 03/08/2015 07/15/2016 Counseling and coordination of care 01/29/2015 05/14/2015 documented as of this encounter (statuses as of 03/26/2022) [facility]2015 History of Past illness Narrative* Problem Noted Date Resolved Date Laryngitis 03/08/2015 07/15/2016 Counseling and coordination of care 01/29/2015 05/14/2015 documented as of this encounter (statuses as of 04/24/2022) [facility] History of Past illness Narrative* Problem Noted Date Resolved Date Laryngitis 03/08/2015 07/15/2016 Counseling and coordination of care 01/29/2015 05/14/2015 documented as of this encounter (statuses as of 05/22/2022) [facility] History of Past illness Narrative* Problem Noted Date Resolved Date Laryngitis 03/08/2015 07/15/2016 Counseling and coordination of care 01/29/2015 05/14/2015 documented as of this encounter (statuses as of 06/02/2022) [address]10-2015 History of Past illness Narrative* Problem Noted Date Diagnosed Date Resolved Date Laryngitis 03/08/2015 07/15/2016 Counseling and coordination of care 01/29/2015 05/14/2015 documented as of this encounter (statuses as of 04/07/2023) [address]10-2015 History of Past illness Narrative* Problem Noted Date Diagnosed Date Resolved Date Laryngitis 03/08/2015 07/15/2016 Counseling and coordination of care 01/29/2015 05/14/2015 documented as of this encounter (statuses as of 04/07/2023) [address]10-2015 History of Past illness Narrative* Problem Noted Date Diagnosed Date Resolved Date Laryngitis 03/08/2015 07/15/2016 Counseling and coordination of care 01/29/2015 05/14/2015 documented as of this encounter (statuses as of 05/06/2023) [address]10-2015 History of Past illness Narrative* Problem Noted Date Diagnosed Date Resolved Date Laryngitis 03/08/2015 07/15/2016 Counseling and coordination of care 01/29/2015 05/14/2015 documented as of this encounter (statuses as of 05/20/2023) [address]10-2015 History of Past illness Narrative* Problem Noted Date Diagnosed Date Resolved Date Laryngitis 03/08/2015 07/15/2016 Counseling and coordination of care 01/29/2015 05/14/2015 documented as of this encounter (statuses as of 05/24/2023) [address]10-2015 History of Past illness Narrative* Problem Noted Date Diagnosed Date Resolved Date Laryngitis 03/08/2015 07/15/2016 Counseling and coordination of care 01/29/2015 05/14/2015 documented as of this encounter (statuses as of 06/23/2023) [address]10-2015 History of Past illness Narrative* Problem Noted Date Diagnosed Date Resolved Date Laryngitis 03/08/2015 07/15/2016 Counseling and coordination of care 01/29/2015 05/14/2015 documented as of this encounter (statuses as of 08/03/2023) [facility] Diagnosis Encounter for screening mammogram for breast cancer [facility] Diagnosis Wellness examination- Primary Palpitations Hypertension, essential Unspecified essential hypertension Anxiety with depression documented in this encounter [facility] [place] note* Diagnosis Mitral valve annular calcification- Primary Mitral valve disorders 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 documented in this encounter [facility] note* Diagnosis Wellness examination- Primary 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 Skin cancer screening Screening for malignant neoplasm of the skin Lateral epicondylitis of both elbows Lateral epicondylitis of elbow Elevated liver enzymes Other nonspecific abnormal serum enzyme levels Elevated fasting glucose Impaired fasting glucose Visit for screening mammogram Other screening mammogram documented in this encounter [facility] note* Diagnosis Gross hematuria- Primary documented in this encounter [facility] for referral (narrative)* Diagnostic Procedure Only (Routine) - Pending Review Specialty Diagnoses / Procedures Referred By Simona alonso Referred To Contact [facility] Diagnoses Encounter for screening mammogram for breast cancer Procedures ROCIO SCREENING SCREENING MAMMOGRAPHY BI 2-VIEW BREAST INC Hari Goldsmith PA-C [address] [place] [address] [facility] [address] [place] [address] Referral ID Status Reason Start Date Expiration Date Visits Requested Visits Authorized [id number] Pending Review Auto-Generat ed Referral 03/18/2022 04/17/2023 1 1 [facility] for referral (narrative)* Outpatient Procedure (Routine) - Pending Review Specialty Diagnoses / Procedures Referred By Simona alonso [facility] Diagnoses Palpitations Procedures ECHO ECHO TTHRC R-T 2D W/WOM-MODE COMPL SPEC&COLR D Silvana Ward, NURSE RN BSN [address] [place] [address] [facility] [place] [address] [place] [address] Referral ID Status Reason Start Date Expiration Date Visits Requested Visits Authorized [id number] Pending Review Auto-Generat ed Referral 03/24/2022 03/24/2023 1 1 * Outpatient Procedure (Routine) - Pending Review Specialty Diagnoses / Procedures Referred By Jollyac t Referred [facility] Diagnoses Palpitations Procedures ECG COMPLETE ECG ROUTINE ECG W/LEAST 12 LDS W/I&R Silvana Ward APRN.NURSE RN BSN [address] [place] [address] [facility] [place] [address] [place] [address] Referral ID Status Reason Start Date Expiration Date Visits Requested Visits Authorized [id number] Pending Review Auto-Generat ed Referral 03/24/2022 03/24/2023 1 1 [facility] for referral (narrative)* Diagnostic Procedure Only (Routine) - Pending Review Specialty Diagnoses / Procedures Referred By Simona t Referred To Contact [facility] Diagnoses Visit for screening mammogram Procedures ROCIO SCREENING W KASSIDY SCREENING DIGITAL BREAST TOMOSYNTHESIS BI SCREENING MAMMOGRAPHY BI 2-VIEW BREAST INC CAD Silvana Ward APRN.NURSE RN BSN [address] [place] [address] [facility] [address] [place] [address] Referral ID Status Reason Start Date Expiration Date Visits Requested Visits Authorized [id number] Pending Review Auto-Generat ed Referral 04/06/2023 05/05/2024 1 1 * Diagnostic Procedure Only (Routine) - Pending Review Specialty Diagnoses / Procedures Referred By Simona t Referred To Contact [facility] Diagnoses Elevated liver enzymes Procedures US ABD RIGHT UPPER QUADRANT US ABDOMINAL REAL TIME W/IMAGE LIMITED Silvana Ward APRN.NURSE RN BSN [address] [place] [address] [facility] Referral ID Status Reason Start Date Expiration Date Visits Requested Visits Authorized [id number] Pending Review Auto-Generat ed Referral 04/06/2023 05/05/2024 1 1 * Consult, Test, Treat (Routine) - Authorized Specialty Diagnoses / Procedures Referred By Contac t Referred To Contact Orthopedics Diagnoses Lateral epicondylitis of both elbows Procedures CONSULT TO ORTHOPAEDICS OFFICE/OUTPATIENT [facility] 60-74 MINUTES Silvana Ward APRN.CNP [address] [place] [address] Referral ID Status Reason Start Date Expiration Date Visits Requested Visits Authorized [id number] Authorized PCP Requested Referral 04/06/2023 04/05/2024 1 1 * Transition of Care (Routine) - Ref Not Required Specialty Diagnoses / Procedures Referred By Contac t Referred To Contact Dermatology Diagnoses Skin cancer screening Procedures CONSULT TO DERMATOLOGY Silvana Ward APRN.CNP [address] [place] [address] Referral ID Status Reason Start Date Expiration Date Visits Requested Visits Authorized [id number] Ref Not Required PCP Requested Referral 04/06/2023 04/05/2024 1 1 [facility] Advance Directives No Advanced Directives Records FoundDocuments on File Type Date Recorded 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 Advance Directive(s) 07/29/2016 10:56 AM Documents on File Type Date Recorded 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 Advance Directive(s) 07/29/2016 10:56 AM Reason for Referral Specialty Diagnoses / Procedures Referred By Contac t Referred To Contact Cardiology Diagnoses Mitral valve annular calcification Procedures CONSULT TO CARDIOLOGY OFFICE/OUTPATIENT [facility] 60-74 MINUTES Hari Moss PA-C [address] [place] [address] Referral ID Status Reason Start Date Expiration Date Visits Requested Visits Authorized [id number] Authorized PCP Requested Referral 04/24/2022 04/24/2023 1 1 Specialty Diagnoses / Procedures Referred By Contac t Referred To Contact Urology Diagnoses Gross hematuria Procedures CONSULT TO UROLOGY OFFICE/OUTPATIENT [facility] 60-74 MINUTES Silvana Ward APRN.NURSE RN BSN [address] [place] [address] Referral ID Status Reason Start Date Expiration Date Visits Requested Visits Authorized [id number] Authorized PCP Requested Referral 08/02/2023 08/01/2024 1 1 Specialty Diagnoses / Procedures Referred By Simona alonso Referred To Contact CT IMAGING Diagnoses Gross hematuria Procedures CT UROGRAM WO/W IVCON CT ABD & PELVIS W/WO CONTRST 1+ BODY REGNS Silvana Ward, SECOND FACING BASTER.NURSE RN BSN [address] [facility] [place] [address] [place] [address] Referral ID Status Reason Start Date Expiration Date Visits Requested Visits Authorized [id number] Pending Review Auto-Generat ed Referral 08/02/2023 08/31/2024 1 1 Summary Purpose Family History No Family History Records Found Additional Source Comments Source Comments (unrecognize d section and content) In the event this informatio n is protected by the Federal Confidentiality of Alcohol and Drug Abuse Patient Records regulations: The Federal rules restrict any use of the information to criminally investigate or prosecute any alcohol or drug abuse patient.[facility] the event this information is protected by the Federal Confidentiality of Alcohol and Drug Abuse Patient Records regulations: The Federal rules restrict any use of the information to criminally investigate or prosecute any alcohol or drug abuse patient.[facility] the event this information is protected by the Federal Confidentiality of Alcohol and Drug Abuse Patient Records regulations: The Federal rules restrict any use of the information to criminally investigate or prosecute any alcohol or drug abuse patient.[facility] the event this information is protected by the Federal Confidentiality of Alcohol and Drug Abuse Patient Records regulations: The Federal rules restrict any use of the information to criminally investigate or prosecute any alcohol or drug abuse patient.[facility] the event this information is protected by the Federal Confidentiality of Alcohol and Drug Abuse Patient Records regulations: The Federal rules restrict any use of the information to criminally investigate or prosecute any alcohol or drug abuse patient.[facility] the event this information is protected by the Federal Confidentiality of Alcohol and Drug Abuse Patient Records regulations: The Federal rules restrict any use of the information to criminally investigate or prosecute any alcohol or drug abuse patient.[facility] the event this information is protected by the Federal Confidentiality of Alcohol and Drug Abuse Patient Records regulations: The Federal rules restrict any use of the information to criminally investigate or prosecute any alcohol or drug abuse patient.[facility] the event this information is protected by the Federal Confidentiality of Alcohol and Drug Abuse Patient Records regulations: The Federal rules restrict any use of the information to criminally investigate or prosecute any alcohol or drug abuse patient.[facility] the event this information is protected by the Federal Confidentiality of Alcohol and Drug Abuse Patient Records regulations: The Federal rules restrict any use of the information to criminally investigate or prosecute any alcohol or drug abuse patient.[facility] the event this information is protected by the Federal Confidentiality of Alcohol and Drug Abuse Patient Records regulations: The Federal rules restrict any use of the information to criminally investigate or prosecute any alcohol or drug abuse patient.[facility] the event this information is protected by the Federal Confidentiality of Alcohol and Drug Abuse Patient Records regulations: The Federal rules restrict any use of the information to criminally investigate or prosecute any alcohol or drug abuse patient.[facility] the event this information is protected by the Federal Confidentiality of Alcohol and Drug Abuse Patient Records regulations: The Federal rules restrict any use of the information to criminally investigate or prosecute any alcohol or drug abuse patient.[facility] Center[facility] the event this information is protected by the Federal Confidentiality of Alcohol and Drug Abuse Patient Records regulations: The Federal rules restrict any use of the information to criminally investigate or prosecute any alcohol or drug abuse patient.[facility] Center[facility] the event this information is protected by the Federal Confidentiality of Alcohol and Drug Abuse Patient Records regulations: The Federal rules restrict any use of the information to criminally investigate or prosecute any alcohol or drug abuse patient.[facility] Center[facility] the event this information is protected by the Federal Confidentiality of Alcohol and Drug Abuse Patient Records regulations: The Federal rules restrict any use of the information to criminally investigate or prosecute any alcohol or drug abuse patient.[facility] Care Teams (unrecognized sec tion and content) Automatic Machine Attendant Relationship Specialty Start Date End Date Hari Moss PA-C [address] [place] [address] PCP - General Family Practice 01/21/17 Automatic Machine Attendant Relationship Specialty Start Date End Date Hari Moss PA-C [address] [place] [address] PCP - General Family Practice 01/21/17 Automatic Machine Attendant Relationship Specialty Start Date End Date Hari Moss PA-C [address] [place] [address] PCP - General Family Practice 01/21/17 Automatic Machine Attendant Relationship Specialty Start Date End Date Hari Moss PA-C [address] [place] [address] PCP - General Family Practice 01/21/17 Automatic Machine Attendant Relationship Specialty Start Date End Date Hari Moss PA-C [address] [place] [address] PCP - General Family Medicine 01/21/17 Automatic Machine Attendant Relationship Specialty Start Date End Date Hari Moss PA-C [address] [place] [address] PCP - General Family Medicine 01/21/17 Automatic Machine Attendant Relationship Specialty Start Date End Date Hari Moss PA-C [address] [facility] [place] [address] PCP - General Family Medicine 01/21/17 Automatic Machine Attendant Relationship Specialty Start Date End Date Hari Moss PA-C [address] [place] [address] PCP - General Family Medicine 01/21/17 Automatic Machine Attendant Relationship Specialty Start Date End Date Hari Moss PA-C [address] [place] [address] PCP - General Family Medicine 01/21/17 Automatic Machine Attendant Relationship Specialty Start Date End Date Hari Moss PA-C [address] [place] [address] PCP - General Family Medicine 01/21/17 Automatic Machine Attendant Relationship Specialty Start Date End Date Hari Moss PA-C [address] [place] [address] PCP - General Family Medicine 01/21/17 Automatic Machine Attendant Relationship Specialty Start Date End Date Hari Moss PA-C [address] [place] [address] PCP - General Family Medicine 01/21/17 Reason for Visit (unrecogniz ed section and content) Reason Comments Results Reason Comments Results Echo Reason Comments Orders Reason Comments Yearly Exam Reason Comments Appointment Reason Comments 2022 Healthy Living program form Reason Comments Hematuria INFORMATION SOURCE (unrecogn ized section and content) FOR RECORDS PERTAINING TO PATIENTS WHO ARE OR HAVE BEEN ENROLLED IN A CHEMICAL DEPENDENCY/SUBSTANCEABUSE PROGRAM, SOME INFORMATION MAY BE OMITTED. This clinical summary was aggregated from multiple sources. Caution should be exercised in using it in the provision of clinical care. This summary normalizes information from multiple sources, and as a consequence, information in this document may materially change the coding, format and clinical context of patient data. In addition, data may be omitted in some cases. CLINICAL DECISIONS SHOULD BE BASED ON THE PRIMARY CLINICAL RECORDS. [facility]. provides no warranty or guarantee of the accuracy or completeness of information in this document.
== END | disposition home or self-care (01) ==
LOC: CVS 09:54
PROVIDERS: PCP Registered Nurse; Referring Provider Physician Assistant; Visit Provider Physician Assistant
DX: R60.0 Localized edema (principal)
CPT/HCPCS: 93970

== ENCOUNTER → 2023-09-24 | Outpatient (CLI) | payer OTHER, SELFPAY ==
--- OUTSIDE RECORDS SUMMARY | 2023-09-24 15:36 | XMS RPT_ITS | CCD ---
Author Name Unknown Address [address] [place] [address] Organization [facility] Care Team Providers Care Analysis Intern Name Role Phone Hari Moss PA-C Primary Care Provider Hari MOSS Primary Care Unavailable SILVANA WARD Attending Unavailable Hari MOSS Primary Care Unavailable SILVANA WARD Attending Unavailable Allergies Allergy Classification Reported Allergen(s) Allergy Type Date of Onset Reaction(s) Facility (15 sources) Latex; Translations: [LATEX] Drug Intolerance 3 [facility] (15 sources) Penicillins; Translations: [PENICILLINS] Drug Intolerance 3 [facility] (15 sources) Sulfonamides (Antibiotic); Translations: [SULFA (SULFONAMIDE ANTIBIOTICS)] Drug Intolerance 3 [facility] Medications Current Medications Medication Drug Class(es) Dates [...] 90 mm[Hg] Silvana Ward APRN.CNP Work Phone: [facility] 08-02-2023 16:25-0500 Heart rate 91 /min Silvana Ward APRN.CNP Work Phone: [facility] 08-02-2023 16:25-0500 Respiratory rate 16 /min Silvana Haagen STAKES PLAYER.ROAD BUILDER Work Phone: [facility] 08-02-2023 16:25-0500 SaO2% (BldA) [Mass fraction] 96 % Silvana Haagen STAKES PLAYER.ROAD BUILDER Work Phone: [facility] 08-02-2023 16:25-0500 Systolic blood pressure 130 mm[Hg] Silvana Haagen STAKES PLAYER.ROAD BUILDER Work Phone: [facility] 04-06-2023 08:02-0400 Body height 169 cm Silvana Haagen STAKES PLAYER.ROAD BUILDER Work Phone: [facility] 04-06-2023 08:02-0400 Body weight 111.13 kg Silvana Haagen STAKES PLAYER.ROAD BUILDER Work Phone: [facility] 04-06-2023 08:02-0400 Diastolic blood pressure 88 mm[Hg] Silvana Haagen STAKES PLAYER.ROAD BUILDER Work Phone: [facility] 04-06-2023 08:02-0400 Heart rate 64 /min Silvana Haagen STAKES PLAYER.ROAD BUILDER Work Phone: [facility] 04-06-2023 08:02-0400 Respiratory rate 16 /min Silvana Haagen STAKES PLAYER.ROAD BUILDER Work Phone: [facility] 04-06-2023 08:02-0400 SaO2% (BldA) [Mass fraction] 98 % Silvana Haagen STAKES PLAYER.ROAD BUILDER Work Phone: [facility] 04-06-2023 08:02-0400 Systolic blood pressure 122 mm[Hg] Silvana Haagen STAKES PLAYER.ROAD BUILDER Work Phone: [facility] 03-24-2022 13:01-0400 Body height 170 cm Silvana Haagen STAKES PLAYER.ROAD BUILDER Work Phone: [facility] 03-24-2022 13:01-0400 Body weight 111.58 kg Silvana Haagen STAKES PLAYER.ROAD BUILDER Work Phone: [facility] 03-24-2022 13:01-0400 Diastolic blood pressure 88 mm[Hg] Silvana Haagen STAKES PLAYER.ROAD BUILDER Work Phone: [facility] 03-24-2022 13:01-0400 Heart rate 70 /min Silvana Ward APRN.ROAD BUILDER Work Phone: [facility] 03-24-2022 13:01-0400 Respiratory rate 18 /min Silvana Ward APRN.ROAD BUILDER Work Phone: [facility] 03-24-2022 13:01-0400 SaO2% (BldA) [Mass fraction] 96 % Silvana Ward APRN.ROAD BUILDER Work Phone: [facility] 03-24-2022 13:01-0400 Systolic blood pressure 124 mm[Hg] Silvana Ward APRN.ROAD BUILDER Work Phone: [facility] Encounters Encounter Date Encounter Type Care Provider Facility Start: 08-02-2023 End: 08-03-2023 ambulatory M JANAY MOSS Facility:[facility] Start: 08-02-2023 End: 08-02-2023 Office outpatient visit 25 minutes Silvana Ward APRN.SCOOTER Work Phone: [facility] [place] Procedures Date Procedure Procedure Detail Performing Clinician Start: 08-02-2023 Urnls dip stick/tabl et rgnt auto w/o microscopy Silvana Ward APRN.ROAD BUILDER Work Phone: Start: 04-06-2023 Hemoglobin A1c/Hemoglobin.total in Blood [facility] Provider Start: 06-19-2022 Mammography NORA BERGER-Portia Work Phone: Start: 03-20-2022 Lipid panel [facility] Provid er Start: 03-20-2022 Lipid 1996 panel - S isatu or Plasma NA Moss PA-C Work Phone: Start: 06-12-2020 Mammography NA Moss PA-C Work Phone: Start: 07-29-2016 Colonoscopy NA Moss PA-C Work Phone: Plan of Treatment Date Care Activity Detail Author Start: 09-10-2030 Urine microalbumin profile DTaP,Tdap,Td Vaccine (4 - Td or Tdap) [facility] Start: 03-20-2027 Lipid 1996 panel - Serum or Plasma Lipid Screening [facility] Start: 03-20-2027 LIPID SCREEN LIPID SCREEN [facility] Start: 07-29-2026 Colonoscopy COLONOSCOPY [facility] Start: 07-29-2026 COLORECTAL CANCER SCREENING COLORECTAL CANCER SCREENING [facility] Start: 04-06-2026 DIABETES SCREEN DIABETES SCREEN [facility] Start: 04-06-2026 Diabetes Screening Diabetes Screening [facility] Start: 01-28-2025 Urine microalbumin profile [facility] Start: 08-02-2024 Annual PCP Team Chronic Disease Visit Annual PCP Team Chronic Disease Visit [facility] Start: 06-22-2024 Mammography Mammogram Screening [facility] Start: 04-06-2024 ANNUAL PCP TEAM CHRONIC DISEASE VISIT ANNUAL PCP TEAM CHRONIC DISEASE VISIT [facility] Start: 08-02-2023 End: 11-01-2023 Bacteria identified in Urine by Culture URINE CULTURE Microbiology Routine Gross hematuria Expected: 08/02/2023, Expires: 11/01/[address] [facility] Work Phone: Immunizations Immunization Date Immunization Notes Care Provider Sinan ames 06-22-2022 influenza virus vacc ine, unspecified formulation NA Moss PA-C Work Phone: [facility] 06-13-2019 influenza, seasonal, injectable NA Moss PA-C Work Phone: [facility] 06-05-2016 influenza virus vacc ine, unspecified formulation NA Moss PA-C Work Phone: [facility] 06-12-2015 influenza virus vacc ine, unspecified formulation NA Moss PA-C Work Phone: [facility] 01-28-2015 tetanus toxoid, redu judy diphtheria toxoid, and acellular pertussis vaccine, adsorbed NA Moss PA-C Work Phone: [facility] Payers Date Payer Category Payer Private Health Insurance KRISHNA CARRIZALES [facility] [employer] [id number] 2022-Present [phone] [address] [place] [address] O [id number] 2022 Private Health Insurance [id number] 2017 Unknown MMO MMO [employer] xxxx [id number] 2017-Present [address] [place] [address] PPO [id number] 2017 Unknown MMO MMO [employer] xxxx [id number] 2017-Present [address] [place] [address] PPO [id number] Social History Date Type Detail Facility Start: 05-24-[facility] Never [facility] tobacco [facility] Start: 05-24-2013 Tobacco use and exposure Smoke less tobacco non-user [facility] Start: 09-07-2021 End: 04-06-2023 Alcohol intake Current non-drinker of alcohol (finding) [facility] Start: 04-06-2021 End: 03-24-2022 History SDOH Alcohol Frequency [address] [facility] Start: 04-06-2021 End: 03-24-2022 History SDOH Alcohol Std Drinks [address] [facility] Start: 04-06-2021 History SDOH Social Connections Phone [address] [facility] Start: 04-06-2021 History SDOH Social Connections Amish [address] [facility] Start: 04-06-2021 History SDOH Social Connections Living [address] [facility] Start: 01-02-2020 Education [address] [facility] Start: 1975 Sex Assigned At Female C [facility] Start: 04-06-2021 End: 08-02-2023 History of Social function [facility] Start: 04-06-2021 End: 08-02-2023 Social connection and isolation panel [facility] Do you belong to any clubs or organizations such as moravian groups, unions, fraternal or athletic groups, or school groups? No [facility] Are you now , , , , never or living with a partner? Living with partner [facility] How often to you hav e a drink containing alcohol? Monthly or less [facility] How many standard dr inks containing alcohol do you have on a typical day? 1 or [address] [facility] How often do you hav e 6 or more drinks on 1 occasion? Never [facility] How hard is it for y ou to pay for the very basics like food, housing, medical care, and heating Not hard at all [facility] Do you feel stress - tense, restless, nervous, or anxious, or unable to sleep at night because your mind is troubled all the time - these days [OSQ] Not at all [facility] (I/We) worried wheth er (my/our) food would run out before (I/we) got money to buy more. Never true [facility] Start: 04-17-2020 Gender identity Identifies as female gender (finding) [facility] Start: 04-17-2020 Sexual orientation Heterosexual (fin [place]) [facility] Do you feel stress - tense, restless, nervous, or anxious, or unable to sleep at night because your mind is troubled all the time - these days [OSQ] Only a little [facility] Clinical Notes 03-08-2015 to 08-02-2023 Silvana Ward APRN.ROAD BUILDER - 08/02/2023 4:34 PM ESTTelephone Encounter - Silvana Ward APRN.SCOOTER - 06/22/2023 4:36 PM EDTTelephone Encounter - Mary Broussard Ma - 06/22/2023 11:15 AM EDT Note Date & Type Note Facility 08-02-2023 Note HNO ID: [id number] Author: Silvana Ward APRN.ROAD BUILDER Service: ? Author Type: Nurse Practitioner Type: [...] onset 03/16/21, monoclonal Ab tx per pulmonology [facility] Non morbid obesity 07/15/2016 S/P [...] to have any further testing done at [facility]. She will get further urinalysis/culture [...] as needed for worsening/no improvement. Silvana Ward APRN.[facility] 08-02-2023 History of Presen t illness Narrative [...] onset 03/16/21, monoclonal Ab tx per pulmonology [facility] Non morbid obesity 07/15/2016 S/P [...] to have any further testing done at [facility]. She will get further urinalysis/culture [...] as needed for worsening/no improvement. Silvana Ward APRN.ROAD BUILDER documented in this encounter [facility] 06-22-2023 Miscellaneous Notes Formattin g of this note might be different from the original. Mammo normal. Pt notified via mychart. Silvana Ward APRN.SCOOTER Office received Mammogram results as ordered by Silvana. See results below and advise. Mary Broussard Ma [facility] - Mammography [ID [id number]] documented in this encounter [facility] 05-24-2023 Miscellaneous Notes Formattin g of this note might be different from the original. Form faxed. Leander Swanson LPN Form complete -- please fax back, as requested. Silvana Ward APRN.SCOOTER Pt called and she reports she saw Silvana Ward for her wellness exam on 04/06/23. Pt works for [facility] and has a short form that needs to be completed and faxed back to her. FAX: [phone]. Type of form: 2022 Healthy Living program form Form received via fax When form is completed, Fax form to [phone] Form has been delivered to Silvana Ward's office. Laid on nurses desk. Silvana is out of the office. Pt is asking to have this filled out when she returns. Linda Menjivar LPN documented in this encounter [facility] 05-06-2023 Miscellaneous Notes Formattin g of this note is different from the original. POPULATION HEALTH NAVIGATION OUTREACH Action/I 1st call-LVM and [employer] message regarding consult to ORTHOPEDICS. Patient Identified by Name and : NO Outreach Outcome/Action Unable to reach patient: Left message [facility] [facility] message sent Did you use a PCP flex slot to schedule this appointment? N/A Reason for Outreach Care Gap or Scheduling/Wellness visits Payer: Payor: AETNA / Plan: AETNA [facility] / Product Type: PPO / [...] 2023 11:20 AM documented in this encounter [facility] 04-06-2023 Note HNO ID: [id number] Author: Silvana Ward APRN.ROAD BUILDER Service: ? Author Type: Nurse Practitioner Type: [...] pain. Nothing excruciating. Going to go to [facility] for skin cancer screening. Requesting a referral [...] onset 03/16/21, monoclonal Ab tx per pulmonology [facility] Non morbid obesity 07/15/2016 S/P [...] normal, no nelson (more content not included)... [facility] 04-06-2023 Instructions Silvana Ward APRN.ROAD BUILDER - 04/06/2023 9:04 AM EDT Get the repeat labs. Schedule with ortho. Schedule with dermatology. Schedule ultrasound. Schedule mammogram. Health Promotion: - Eat healthy -- go to [employer]gov to get started - Have a yearly [...] - Wear sunscreen documented in this encounter [facility] 04-06-2023 History of Presen t [...] pain. Nothing excruciating. Going to go to [facility] for skin cancer screening. Requesting a referral [...] onset 03/16/21, monoclonal Ab tx per pulmonology [facility] Non morbid obesity 07/15/2016 S/P [...] Promotion: - Eat healthy -- go to [employer] to get started - Have a yearly [...] for mammogram, yearly mammogram recommended - [facility] SCREENING W KASSIDY Discussed treatment plan and patient voices understanding. Patient's questions answered appropriately. Medications and potential side effects were discussed and patient voices understanding. Return to the office as scheduled or as needed for worsening/no improvement. Silvana Ward APRN.ROAD BUILDER documented in this encounter [facility] 06-02-2022 Miscellaneous Notes Formattin g [...] send Thanks, Giancarlo Moss PA-C Kim with [employer] called in and reports Pts insurance needs an order for Pt to see a Lighting Engineering Technician. Let her know that Pt already had a consult in and she states that she also needs one sent to her insurance. She states the phone # to call is [phone]. Pt is seeing Dr Josue. documented in this encounter [facility] 04-24-2022 Miscellaneous Notes Formattin g of this note might be different from the original. Script sent. Silvana Ward APRN.CNP Patient notified and verbalized understanding patient is going to see the [facility] cardiology. She needs refills on [...] Ania Bruce Ma documented in this encounter [facility] 03-26-2022 Miscellaneous Notes Pt notified of results via SeeJayhart. Tracey Naik Ma Can please let patient know that her additional lab work was normal. Office received lab results that were ordered by Silvana Ward CNP. Will route lab results to to review and advise. Mary Broussard Ma documented in this encounter [facility] 03-24-2022 Instructions Silvana Ward APRN.CNP - 03/24/2022 1:40 PM EDT 1. Schedule EKG, echo, and event monitor. 2. Get labs. 3. If you get any sustained palpitations, or palpitations associated w/ other symptoms (pain, shortness of breath, dizziness, etc) -- go to the ER. Health Promotion: - Eat healthy go to [employer]gov to get started - Have a yearly [...] - Wear sunscreen documented in this encounter [facility] 03-24-2022 History of Presen t [...] onset 03/16/21, monoclonal Ab tx per pulmonology [facility] Non morbid obesity 07/15/2016 S/P [...] Health Promotion: - Eat healthy go to [email or web address] to get started - Have a yearly [...] as needed for worsening/no improvement. Silvana Ward APRN.ROAD BUILDER This note was partially generated using [employer] voice recognition system. Note was reviewed for accuracy. There may be minor misspellings or grammar miscues with [employer] voice recognition. documented in this encounter [facility] documented as of this encounter (statuses as of 03/20/2022) [facility] History of Past illness Narrative* Problem Noted Date Resolved Date Laryngitis 03/08/2015 07/15/2016 Counseling and coordination of care 01/29/2015 05/14/2015 documented as of this encounter (statuses as of 03/23/2022) [facility] History of Past illness Narrative* Problem Noted Date Resolved Date Laryngitis 03/08/2015 07/15/2016 Counseling and coordination of care 01/29/2015 05/14/2015 documented as of this encounter (statuses as of 03/24/2022) [facility] History of Past illness Narrative* Problem Noted Date Resolved Date Laryngitis 03/08/2015 07/15/2016 Counseling and coordination of care 01/29/2015 05/14/2015 documented as of this encounter (statuses as of 03/26/2022) [facility] History of Past illness Narrative* Problem Noted Date Resolved Date Laryngitis 03/08/2015 07/15/2016 Counseling and coordination of care 01/29/2015 05/14/2015 documented as of this encounter (statuses as of 04/24/2022) [facility] History of Past illness Narrative* Problem Noted Date Resolved Date Laryngitis 03/08/2015 07/15/2016 Counseling and coordination of care 01/29/2015 05/14/2015 documented as of this encounter (statuses as of 05/22/2022) [facility] History of Past illness Narrative* Problem Noted Date Resolved Date Laryngitis 03/08/2015 07/15/2016 Counseling and coordination of care 01/29/2015 05/14/2015 documented as of this encounter (statuses as of 06/02/2022) [address]10-2015 History of Past illness Narrative* Problem Noted Date Diagnosed Date Resolved Date Laryngitis 03/08/2015 07/15/2016 Counseling and coordination of care 01/29/2015 05/14/2015 documented as of this encounter (statuses as of 04/07/2023) [address]10-2015 History of Past illness Narrative* Problem Noted Date Diagnosed Date Resolved Date Laryngitis 03/08/2015 07/15/2016 Counseling and coordination of care 01/29/2015 05/14/2015 documented as of this encounter (statuses as of 04/07/2023) [address]10[address]2015 History of Past illness Narrative* Problem Noted Date Diagnosed Date Resolved Date Laryngitis 03/08/2015 07/15/2016 Counseling and coordination of care 01/29/2015 05/14/2015 documented as of this encounter (statuses as of 05/06/2023) [address]10[address]2015 History of Past illness Narrative* Problem Noted Date Diagnosed Date Resolved Date Laryngitis 03/08/2015 07/15/2016 Counseling and coordination of care 01/29/2015 05/14/2015 documented as of this encounter (statuses as of 05/20/2023) [address]2015 History of Past illness Narrative* Problem Noted Date Diagnosed Date Resolved Date Laryngitis 03/08/2015 07/15/2016 Counseling and coordination of care 01/29/2015 05/14/2015 documented as of this encounter (statuses as of 05/24/2023) [address]2015 History of Past illness Narrative* Problem Noted Date Diagnosed Date Resolved Date Laryngitis 03/08/2015 07/15/2016 Counseling and coordination of care 01/29/2015 05/14/2015 documented as of this encounter (statuses as of 06/23/2023) [address]2015 History of Past illness Narrative* Problem Noted Date Diagnosed Date Resolved Date Laryngitis 03/08/2015 07/15/2016 Counseling and coordination of care 01/29/2015 05/14/2015 documented as of this encounter (statuses as of 08/03/2023) [facility] Diagnosis Encounter for screening mammogram for breast cancer [facility] Diagnosis Wellness examination- Primary Palpitations Hypertension, essential Unspecified essential hypertension Anxiety with depression documented in this encounter [facility] note* Diagnosis Mitral valve annular calcification- Primary Mitral valve disorders 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 documented in this encounter [facility] note* Diagnosis Wellness examination- Primary Adjustment reaction [...] Other screening mammogram documented in this encounter [facility] note* Diagnosis Gross hematuria- Primary documented in this encounter [facility] for referral (narrative)* Diagnostic Procedure Only (Routine) - Pending Review Specialty Diagnoses / Procedures Referred By Simona alonso Referred To Contact [facility] Diagnoses Encounter for screening mammogram for breast cancer Procedures ROCIO SCREENING SCREENING MAMMOGRAPHY BI 2-VIEW BREAST INC Hari Goldsmith PA-C [address] [place] [address] [facility] [address] [place] [address] Referral ID Status Reason Start Date Expiration Date Visits Requested Visits Authorized [id number] Pending Review Auto-Generat ed Referral 03/18/2022 04/17/2023 1 1 [facility] for referral (narrative)* Outpatient Procedure (Routine) - Pending Review Specialty Diagnoses / Procedures Referred By Simona alonso [facility] Diagnoses Palpitations Procedures ECHO ECHO TTHRC R-T 2D W/WOM-MODE COMPL SPEC&COLR D Silvana Ward, ROAD BUILDER [address] [place] [address] [facility] [place] [address] [place] [address] Referral ID Status Reason Start Date Expiration Date Visits Requested Visits Authorized [id number] Pending Review Auto-Generat ed Referral 03/24/2022 03/24/2023 1 1 * Outpatient Procedure (Routine) - Pending Review Specialty Diagnoses / Procedures Referred By Jollyac t Referred [facility] Diagnoses Palpitations Procedures ECG COMPLETE ECG ROUTINE ECG W/LEAST 12 LDS W/I&R Silvana Ward APRN.ROAD BUILDER [address] [place] [address] [facility] [place] [address] [place] [address] Referral ID Status Reason Start Date Expiration Date Visits Requested Visits Authorized [id number] Pending Review Auto-Generat ed Referral 03/24/2022 03/24/2023 1 1 [facility] for referral (narrative)* Diagnostic Procedure Only (Routine) - Pending Review Specialty Diagnoses / Procedures Referred By Simona t Referred To Contact [facility] Diagnoses Visit for screening mammogram Procedures ROCIO SCREENING W KASSIDY SCREENING DIGITAL BREAST TOMOSYNTHESIS BI SCREENING MAMMOGRAPHY BI 2-VIEW BREAST INC CAD Silvana Ward APRN.ROAD BUILDER [address] [place] [address] [facility] [address] [place] [address] Referral ID Status Reason Start Date Expiration Date Visits Requested Visits Authorized [id number] Pending Review Auto-Generat ed Referral 04/06/2023 05/05/2024 1 1 * Diagnostic Procedure Only (Routine) - Pending Review Specialty Diagnoses / Procedures Referred By Simona t Referred To Contact [facility] Diagnoses Elevated liver enzymes Procedures US ABD RIGHT UPPER QUADRANT US ABDOMINAL REAL TIME W/IMAGE LIMITED Silvana Ward APRN.ROAD BUILDER [address] [place] [address] [facility] Referral ID Status Reason Start Date Expiration Date Visits Requested Visits Authorized [id number] Pending Review Auto-Generat ed Referral 04/06/2023 05/05/2024 1 1 * Consult, Test, Treat (Routine) - Authorized Specialty Diagnoses / Procedures Referred By Contac t Referred To Contact Orthopedics Diagnoses Lateral epicondylitis of both elbows Procedures CONSULT TO ORTHOPAEDICS OFFICE/OUTPATIENT [place] [facility] 60-74 MINUTES Silvana Ward APRN.CNP [address] [place] [address] Referral ID Status Reason Start Date Expiration Date Visits Requested Visits Authorized [id number] Authorized PCP Requested Referral 04/06/2023 04/05/2024 1 1 * Transition of Care (Routine) - Ref Not Required Specialty Diagnoses / Procedures Referred By Contac t Referred To Contact Dermatology Diagnoses Skin cancer screening Procedures CONSULT TO DERMATOLOGY Silvana Ward APRN.CNP [address] [place] [address] Referral ID Status Reason Start Date Expiration Date Visits Requested Visits Authorized [id number] Ref Not Required PCP Requested Referral 04/06/2023 04/05/2024 [address] 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 Advance Directive(s) 07/29/2016 10:56 AM Reason for Referral Specialty Diagnoses / Procedures Referred By Contac t Referred To Contact Cardiology Diagnoses Mitral valve annular calcification Procedures CONSULT TO CARDIOLOGY OFFICE/OUTPATIENT [facility] 60-74 MINUTES Hari Moss PA-C [address] [place] [address] Referral ID Status Reason Start Date Expiration Date Visits Requested Visits Authorized [id number] Authorized PCP Requested Referral 04/24/2022 04/24/2023 1 1 Specialty Diagnoses / Procedures Referred By Contac t Referred To Contact Urology Diagnoses Gross hematuria Procedures CONSULT TO UROLOGY OFFICE/OUTPATIENT [facility] 60-74 MINUTES Silvana Ward APRN.ROAD BUILDER [address] [place] [address] Referral ID Status Reason Start Date Expiration Date Visits Requested Visits Authorized [id number] Authorized PCP Requested Referral 08/02/2023 08/01/2024 1 1 Specialty Diagnoses / Procedures Referred By Simona alonso Referred To Contact CT IMAGING Diagnoses Gross hematuria Procedures CT UROGRAM WO/W IVCON CT ABD & PELVIS W/WO CONTRST 1+ BODY REGNS Silvana Ward, STAKES PLAYER.ROAD BUILDER [address] [facility] [place] [address] [place] [address] Referral ID Status Reason Start Date Expiration Date Visits Requested Visits Authorized [id number] Pending Review Auto-Generat ed Referral 08/02/2023 08/31/2024 [...] or prosecute any alcohol or drug abuse patient.[facility] the event this information is protected by the Federal Confidentiality of Alcohol and Drug Abuse Patient Records regulations: The Federal rules restrict any use of the information to criminally investigate or prosecute any alcohol or drug abuse patient.[facility] the event this information is protected by the Federal Confidentiality of Alcohol and Drug Abuse Patient Records regulations: The Federal rules restrict any use of the information to criminally investigate or prosecute any alcohol or drug abuse patient.[facility] the event this information is protected by the Federal Confidentiality of Alcohol and Drug Abuse Patient Records regulations: The Federal rules restrict any use of the information to criminally investigate or prosecute any alcohol or drug abuse patient.[facility] Center[facility] the event this information is protected by the Federal Confidentiality of Alcohol and Drug Abuse Patient Records regulations: The Federal rules restrict any use of the information to criminally investigate or prosecute any alcohol or drug abuse patient.[facility] the event this information is protected by the Federal Confidentiality of Alcohol and Drug Abuse Patient Records regulations: The Federal rules restrict any use of the information to criminally investigate or prosecute any alcohol or drug abuse patient.[facility] CenterIn the event this information is protected by the Federal Confidentiality of Alcohol and Drug Abuse Patient Records regulations: The Federal rules restrict any use of the information to criminally investigate or prosecute any alcohol or drug abuse patient.[facility] the event this information is protected by the Federal Confidentiality of Alcohol and Drug Abuse Patient Records regulations: The Federal rules restrict any use of the information to criminally investigate or prosecute any alcohol or drug abuse patient.[facility] CenterIn the event this information is protected by the Federal Confidentiality of Alcohol and Drug Abuse Patient Records regulations: The Federal rules restrict any use of the information to criminally investigate or prosecute any alcohol or drug abuse patient.[facility] CenterIn the event this information is [...] or prosecute any alcohol or drug abuse patient.[facility] CenterIn the event this information is protected by the Federal Confidentiality of Alcohol and Drug Abuse Patient Records regulations: The Federal rules restrict any use of the information to criminally investigate or prosecute any alcohol or drug abuse patient.[facility] CenterIn the event this information is protected by the Federal Confidentiality of Alcohol and Drug Abuse Patient Records regulations: The Federal rules restrict any use of the information to criminally investigate or prosecute any alcohol or drug abuse patient.[facility] CenterIn the event this information is protected by the Federal Confidentiality of Alcohol and Drug Abuse Patient Records regulations: The Federal rules restrict any use of the information to criminally investigate or prosecute any alcohol or drug abuse patient.[facility] CenterIn the event this information is protected by the Federal Confidentiality of Alcohol and Drug Abuse Patient Records regulations: The Federal rules restrict any use of the information to criminally investigate or prosecute any alcohol or drug abuse patient.[facility] Care Teams (unrecognized sec tion and content) Analysis Intern Relationship Specialty Start Date End Date Hari Moss PA-C [address] [place] [address] PCP - General Family Practice 01/21/17 Analysis Intern Relationship Specialty Start Date End Date Hari Moss PA-C [address] [place] [address] PCP - General Family Practice 01/21/17 Analysis Intern Relationship Specialty Start Date End Date Hari Moss PA-C [address] [place] [address] PCP - General Family Practice 01/21/17 Analysis Intern Relationship Specialty Start Date End Date Hari Msos PA-C [address] [place] [address] PCP - General Family Practice 01/21/17 Analysis Intern Relationship Specialty Start Date End Date Hari Moss PA-C [address] [place] [address] PCP - General Family Medicine 01/21/17 Analysis Intern Relationship Specialty Start Date End Date Hari Moss PA-C [address] [place] [address] PCP - General Family Medicine 01/21/17 Analysis Intern Relationship Specialty Start Date End Date Hari Moss PA-C [address] [facility] [place] [address] PCP - General Family Medicine 01/21/17 Analysis Intern Relationship Specialty Start Date End Date Hari Moss PA-C [address] [facility] [place] [address] PCP - General Family Medicine 01/21/17 Analysis Intern Relationship Specialty Start Date End Date Hari Moss PA-C [address] [facility] [place] [address] PCP - General Family Medicine 01/21/17 Analysis Intern Relationship Specialty Start Date End Date Hari Moss PA-C [address] [facility] [place] [address] PCP - General Family Medicine 01/21/17 Analysis Intern Relationship Specialty Start Date End Date Hari Moss PA-C [address] [facility] [place] [address] PCP - General Family Medicine 01/21/17 Analysis Intern Relationship Specialty Start Date End Date Hari Moss PA-C [address] [facility] [place] [address] PCP - General Family Medicine 01/21/17 Reason [...] BE BASED ON THE PRIMARY CLINICAL RECORDS. [employer] [facility]. provides no warranty or guarantee of the accuracy or completeness of information in this document.
[2023-09-24 15:52] LABS: Color, Urine Yellow (Yellow); Glucose, Dipstick Normal (Normal); Ketone-Dipstick 5 mg/dl (Negative); Leukocyte Esterase-Dipstick 25 /ul (Negative); Nitrite-Dipstick Negative (Negative); Occult Blood-Urine 250 /ul (Negative); Protein-Dipstick 30 mg/dl (Negative); Specific Gravity, Urine 1.025 (1.002-1.030); Urine Bilirubin Dipstick 1 mg/dL (Negative); Urine Clarity Clear (Clear); Urine Urobilinogen Normal (Normal)
[2023-09-24 16:33] LABS: Bacteria RARE /hpf (None Seen); Mucous, Urine RARE /hpf (<or=2+); Red Blood Cells-Urine 25-50 SEEN /hpf (0-5); Squamous Epithelial Cells - UA 0-5 SEEN /hpf (5-10); White Blood Cells 0-5 SEEN /hpf (0-5)
== END | disposition home or self-care (01) ==
LOC: LAB 15:18
PROVIDERS: PCP Registered Nurse; Referring Provider Registered Nurse; Visit Provider Registered Nurse
DX: R10.9 Unspecified abdominal pain (principal)
CPT/HCPCS: 81001; 87086; 87088

== ENCOUNTER → 2023-11-05 | Outpatient (CLI) | payer OTHER, SELFPAY ==
--- NOTE | 2023-11-05 11:46 | CT_ITS ---
INDICATION: Unspecified abdominal pain EXAMINATION: CT ABDOMEN AND PELVIS WITHOUT CONTRAST - CT Abdomen And Pelvis W/O Contrast Injection TECHNIQUE: Helically acquired images were obtained of the abdomen and pelvis without oral or IV contrast. A radiation dose optimization technique was used for this scan. IV Contrast dosage and agent: None. Oral contrast: None. RADIATION DOSAGE (If Supplied By Facility): CTDIvol = ( 23.11 ) mGy, DLP = ( 1246.94 ) mGycm COMPARISON: Prior study dated: 08/06/2023 FINDINGS: LOWER CHEST: Lung bases are clear. No cardiomegaly or pericardial effusion. LIVER: Diffuse hepatic steatosis. No focal mass. GALLBLADDER AND BILIARY TREE: Status post cholecystectomy. No intra- or extrahepatic biliary ductal dilation. PANCREAS: No focal cystic or solid mass. SPLEEN: Normal size without focal cystic or solid mass. ADRENAL GLANDS: No nodules. KIDNEYS AND URETERS: Normal renal size and position. No hydronephrosis. PERITONEUM: No ascites or free air. No other fluid collection. BOWEL: Surgical clips in the right lower quadrant presumably from previous appendectomy. No stomach or bowel distension. No focal inflammatory change. LYMPH NODES: No enlarged mesenteric or retroperitoneal lymph nodes. VESSELS: Aorta is non-dilated. URINARY BLADDER: Unremarkable. REPRODUCTIVE ORGANS: No pelvic masses. ABDOMINAL WALL: No discrete abdominal or pelvic wall hernia. BONES: No lytic or blastic abnormality. CT/Abdomen/Pelvis without Cont IMPRESSION: 1. Hepatic steatosis. 2. Status post cholecystectomy. 3. No focal acute inflammatory process. Electronically Signed: Ney Mancia MD at 14:49 EST ,
--- OUTSIDE RECORDS SUMMARY | 2023-11-05 11:53 | XMS RPT_ITS | CCD ---
Author Name Unknown Address [address] [place] [address] Organization [facility] Care Team Providers Care Gis Instructor Name Role Phone Hari Moss PA-C Primary Care Provider Hari MOSS Primary Care Unavailable SILVANA WARD Attending Unavailable Hari MOSS Primary Care Unavailable SILVANA WARD Attending Unavailable Allergies Allergy Classification Reported Allergen(s) Allergy Type Date of Onset Reaction(s) Facility (15 sources) Latex; Translations: [LATEX] Drug Intolerance 3 [facility] (15 sources) Penicillins; Translations: [PENICILLINS] Drug Intolerance 3 [facility] (15 sources) Sulfonamides (Antibiotic); Translations: [SULFA (SULFONAMIDE ANTIBIOTICS)] Drug Intolerance 3 [facility] Medications Current Medications Medication Drug Class(es) [...] 90 mm[Hg] Silvana Ward APRN.CNP Work Phone: [facility] 08-02-2023 16:25-0500 Heart rate 91 /min Silvana Ward APRN.CNP Work Phone: [facility] 08-02-2023 16:25-0500 Respiratory rate 16 /min Silvana Haagen SUPERVISORY TRAINING SPECIALIST.SENIOR QUALITATIVE RESEARCHER Work Phone: [facility] 08-02-2023 16:25-0500 SaO2% (BldA) [Mass fraction] 96 % Silvana Haagen SUPERVISORY TRAINING SPECIALIST.SENIOR QUALITATIVE RESEARCHER Work Phone: [facility] 08-02-2023 16:25-0500 Systolic blood pressure 130 mm[Hg] Silvana Haagen SUPERVISORY TRAINING SPECIALIST.SENIOR QUALITATIVE RESEARCHER Work Phone: [facility] 04-06-2023 08:02-0400 Body height 169 cm Silvana Haagen SUPERVISORY TRAINING SPECIALIST.SENIOR QUALITATIVE RESEARCHER Work Phone: [facility] 04-06-2023 08:02-0400 Body weight 111.13 kg Silvana Haagen SUPERVISORY TRAINING SPECIALIST.SENIOR QUALITATIVE RESEARCHER Work Phone: [facility] 04-06-2023 08:02-0400 Diastolic blood pressure 88 mm[Hg] Silvana Haagen SUPERVISORY TRAINING SPECIALIST.SENIOR QUALITATIVE RESEARCHER Work Phone: [facility] 04-06-2023 08:02-0400 Heart rate 64 /min Silvana Haagen SUPERVISORY TRAINING SPECIALIST.SENIOR QUALITATIVE RESEARCHER Work Phone: [facility] 04-06-2023 08:02-0400 Respiratory rate 16 /min Silvana Haagen SUPERVISORY TRAINING SPECIALIST.SENIOR QUALITATIVE RESEARCHER Work Phone: [facility] 04-06-2023 08:02-0400 SaO2% (BldA) [Mass fraction] 98 % Silvana Haagen SUPERVISORY TRAINING SPECIALIST.SENIOR QUALITATIVE RESEARCHER Work Phone: [facility] 04-06-2023 08:02-0400 Systolic blood pressure 122 mm[Hg] Silvana Haagen SUPERVISORY TRAINING SPECIALIST.SENIOR QUALITATIVE RESEARCHER Work Phone: [facility] 03-24-2022 13:01-0400 Body height 170 cm Silvana Haagen SUPERVISORY TRAINING SPECIALIST.SENIOR QUALITATIVE RESEARCHER Work Phone: [facility] 03-24-2022 13:01-0400 Body weight 111.58 kg Silvana Haagen SUPERVISORY TRAINING SPECIALIST.SENIOR QUALITATIVE RESEARCHER Work Phone: [facility] 03-24-2022 13:01-0400 Diastolic blood pressure 88 mm[Hg] Silvana Haagen SUPERVISORY TRAINING SPECIALIST.SENIOR QUALITATIVE RESEARCHER Work Phone: [facility] 03-24-2022 13:01-0400 Heart rate 70 /min Silvaan Ward APRN.SENIOR QUALITATIVE RESEARCHER Work Phone: [facility] 03-24-2022 13:01-0400 Respiratory rate 18 /min Silvana Ward APRN.SENIOR QUALITATIVE RESEARCHER Work Phone: [facility] 03-24-2022 13:01-0400 SaO2% (BldA) [Mass fraction] 96 % Silvana Ward APRN.SENIOR QUALITATIVE RESEARCHER Work Phone: [facility] 03-24-2022 13:01-0400 Systolic blood pressure 124 mm[Hg] Silvana Ward APRN.SENIOR QUALITATIVE RESEARCHER Work Phone: [facility] Encounters Encounter Date Encounter Type Care Provider Facility Start: 08-02-2023 End: 08-03-2023 ambulatory M JANAY MOSS Facility:[facility] Start: 08-02-2023 End: 08-02-2023 Office outpatient visit 25 minutes Silvana Ward APRN.SCOOTER Work Phone: [facility] Procedures Date Procedure Procedure Detail Performing Clinician Start: 08-02-2023 Urnls dip stick/tabl et rgnt auto w/o microscopy Silvana Ward APRN.SENIOR QUALITATIVE RESEARCHER Work Phone: Start: 04-06-2023 Hemoglobin A1c/Hemoglobin.total in [...] DTaP,Tdap,Td Vaccine (4 - Td or Tdap) [facility] Start: 03-20-2027 Lipid 1996 panel - Serum or Plasma Lipid Screening [facility] Start: 03-20-2027 LIPID SCREEN LIPID SCREEN [facility] Start: 07-29-2026 Colonoscopy COLONOSCOPY [facility] Start: 07-29-2026 COLORECTAL CANCER SCREENING COLORECTAL CANCER SCREENING [facility] Start: 04-06-2026 DIABETES SCREEN DIABETES SCREEN [facility] Start: 04-06-2026 Diabetes Screening Diabetes Screening [facility] Start: 01-28-2025 Urine microalbumin profile [facility] Start: 08-02-2024 Annual PCP Team Chronic Disease Visit Annual PCP Team Chronic Disease Visit [facility] Start: 06-22-2024 Mammography Mammogram Screening [facility] Start: 04-06-2024 ANNUAL PCP TEAM CHRONIC DISEASE VISIT ANNUAL PCP TEAM CHRONIC DISEASE VISIT [facility] Start: 08-02-2023 End: 11-01-2023 Bacteria identified in Urine by Culture URINE CULTURE Microbiology Routine Gross hematuria Expected: 08/02/2023, Expires: 11/01/2023 [facility] Work Phone: Immunizations Immunization Date Immunization Notes Care Provider Sinan ames 06-22-2022 influenza virus vacc ine, unspecified formulation NA Moss PA-C Work Phone: [facility] 06-13-2019 influenza, seasonal, injectable NA Moss PA-C Work Phone: [facility] 06-05-2016 influenza virus vacc ine, unspecified formulation NA Moss PA-C Work Phone: [facility] 06-12-2015 influenza virus vacc ine, unspecified formulation NA Moss PA-C Work Phone: [facility] 01-28-2015 tetanus toxoid, redu judy diphtheria toxoid, and acellular pertussis vaccine, adsorbed NA Moss PA-C Work Phone: [facility] Payers Date Payer Category Payer Private Health Insurance KRISHNA CARRIZALES [facility] [email or web address] [id number] 2022-Present [phone] [address] [place] [address] O [id number] 2022 Private Health Insurance [id number] 2017 Unknown MMO MMO TPA xxxx [id number] 2017-Present [address] [place] [address] PPO [id number] 2017 Unknown MMO MMO [employer]PA xxxx [id number] 2017-Present [address] [place] [address] PPO [id number] Social History Date Type Detail Facility Start: 05-24-2013 [facility] Start: 05-24-2013 Tobacco use and exposure Smoke less tobacco non-user [facility] Start: 09-07-2021 End: 04-06-2023 Alcohol intake Current non-drinker of alcohol (finding) [facility] Start: 04-06-2021 End: 03-24-2022 History SDOH Alcohol Frequency 2 [facility] Start: 04-06-2021 End: 03-24-2022 History SDOH Alcohol Std Drinks 1 [facility] Start: 04-06-2021 History SDOH Social Connections Phone 5 [facility] Start: 04-06-2021 History SDOH Social Connections Mandaeism 3 [facility] Start: 04-06-2021 History SDOH Social Connections Living 8 [facility] Start: 01-02-2020 Education 16 [facility] Start: 1975 Sex Assigned At Female [facility] Start: 04-06-2021 End: 08-02-2023 History of Social function [facility] Start: 04-06-2021 End: 08-02-2023 Social connection and isolation panel [facility] Do you belong to any clubs or organizations such as judaism groups, unions, fraternal or athletic groups, or school groups? No [facility] Are you now , , , , never or living with a partner? Living with partner [facility] How often to you hav e a drink containing alcohol? Monthly or less [facility] How many standard dr inks containing alcohol do you have on a typical day? 1 or 2 [facility] How often do you hav e 6 or more drinks on 1 occasion? Never [facility] How hard is it for y ou to pay for the very basics like food, housing, medical care, and heating Not hard at all [facility] Do you feel stress - tense, restless, nervous, or anxious, or unable to sleep at night because your mind is troubled all the time - these days [OSQ] Not at all [facility] (I/We) worried wheth er (my/our) food would run out before (I/we) got money to buy more. Never true [facility] Start: 04-17-2020 Gender identity Identifies as female gender (finding) [facility] Start: 04-17-2020 Sexual orientation Heterosexual ([place]) [facility] Do you feel stress - tense, restless, nervous, or anxious, or unable to sleep at night because your mind is troubled all the time - these days [OSQ] Only a little [facility] Clinical Notes 03-08-2015 to 08-02-2023 Silvana Ward APRN.SENIOR QUALITATIVE RESEARCHER - 08/02/2023 4:34 PM ESTTelephone Encounter - Silvana Ward APRN.SCOOTER - 06/22/2023 4:36 PM EDTTelephone Encounter - Mary Broussard Ma - 06/22/2023 11:15 AM EDT Note Date & Type Note Facility 08-02-2023 Note HNO ID: [id number] Author: Silvana Ward APRN.SENIOR QUALITATIVE RESEARCHER Service: ? Author Type: Nurse Practitioner Type: [...] onset 03/16/21, monoclonal Ab tx per pulmonology [facility] Non morbid obesity 07/15/2016 S/P laparoscopic [...] to have any further testing done at [facility]. She will get further urinalysis/culture and [...] as needed for worsening/no improvement. Silvana Ward APRN.[facility] 08-02-2023 History of Presen t illness Narrative [...] onset 03/16/21, monoclonal Ab tx per pulmonology [facility] Non morbid obesity 07/15/2016 S/P laparoscopic [...] to have any further testing done at [facility]. She will get further urinalysis/culture and [...] as needed for worsening/no improvement. Silvana Ward APRN.SENIOR QUALITATIVE RESEARCHER documented in this encounter [facility] 06-22-2023 Miscellaneous Notes Formattin g of this note might be different from the original. Mammo normal. Pt notified via mychart. Silvana Ward APRN.SCOOTER Office received Mammogram results as ordered by Silvana. See results below and advise. Mary Broussard Ma [facility] - Mammography [ID [id number]] documented in this encounter [facility] 05-24-2023 Miscellaneous Notes Formattin g of this note might be different from the original. Form faxed. Leander Swanson LPN Form complete -- please fax back, as requested. Silvana Ward APRN.SCOOTER Pt called and she reports she saw Silvana Ward for her wellness exam on 04/06/23. Pt works for [facility] and has a short form that needs to be completed and faxed back to her. FAX: [phone]. Type of form: 2022 Healthy Living program form Form received via fax When form is completed, Fax form to [phone] Form has been delivered to Silvana Ward's office. Laid on nurses desk. Silvana is out of the office. Pt is asking to have this filled out when she returns. Linda Menjivar LPN documented in this encounter [facility] 05-06-2023 Miscellaneous Notes Formattin g of this note is different from the original. POPULATION HEALTH NAVIGATION OUTREACH Action/I 1st call-LVM and Paymentus message regarding consult to ORTHOPEDICS. Patient Identified by Name and : NO Outreach Outcome/Action Unable to reach patient: Left message [employer] message sent Did you use a PCP flex slot to schedule this appointment? N/A Reason for Outreach Care Gap or Scheduling/Wellness visits Payer: Payor: AETNA / Plan: AETNA [facility] / Product Type: PPO / Care [...] 2023 11:20 AM documented in this encounter [facility] 04-06-2023 Note HNO ID: [id number] Author: Silvana Ward APRN.SENIOR QUALITATIVE RESEARCHER Service: ? Author Type: Nurse Practitioner Type: [...] pain. Nothing excruciating. Going to go to [facility] for skin cancer screening. Requesting a referral [...] onset 03/16/21, monoclonal Ab tx per pulmonology [facility] Non morbid obesity 07/15/2016 S/P laparoscopic [...] normal, no nelson (more content not included)... [facility] 04-06-2023 Instructions Silvana Ward APRN.SENIOR QUALITATIVE RESEARCHER - 04/06/2023 9:04 AM EDT Get the repeat labs. Schedule with ortho. Schedule with dermatology. Schedule ultrasound. Schedule mammogram. Health Promotion: - Eat healthy -- go to [employer] to get started - Have a yearly [...] - Wear sunscreen documented in this encounter [facility] 04-06-2023 History of Presen t illness Narrative [...] pain. Nothing excruciating. Going to go to [facility] for skin cancer screening. Requesting a referral [...] onset 03/16/21, monoclonal Ab tx per pulmonology [facility] Non morbid obesity 07/15/2016 S/P laparoscopic [...] Promotion: - Eat healthy -- go to [employer] to get started - Have a yearly [...] up for mammogram, yearly mammogram recommended - [facility] SCREENING W KASSIDY Discussed treatment plan and patient voices understanding. Patient's questions answered appropriately. Medications and potential side effects were discussed and patient voices understanding. Return to the office as scheduled or as needed for worsening/no improvement. Silvana Ward APRN.SENIOR QUALITATIVE RESEARCHER documented in this encounter [facility] 06-02-2022 Miscellaneous Notes Formattin g of this [...] send Thanks, Giancarlo Moss PA-C Kim with [employer] called in and reports Pts insurance needs an order for Pt to see a Banking Analyst. Let her know that Pt already had a consult in and she states that she also needs one sent to her insurance. She states the phone # to call is [phone]. Pt is seeing Dr Josue. documented in this encounter [facility] 04-24-2022 Miscellaneous Notes Formattin g of this note might be different from the original. Script sent. Silvana Ward APRN.CNP Patient notified and verbalized understanding patient is going to see the [facility] cardiology. She needs refills on [...] cardiology for further recommendations. Referral placed. Silvana Wadr APRN.CNP Please review in scanned documents Cardiac Echo was done that you ordered 03/24 Ania Bruce Ma documented in this encounter [facility] 03-26-2022 Miscellaneous Notes Pt notified of results via [employer]. Tracey Naik Ma Can please let patient know that her additional lab work was normal. Office received lab results that were ordered by Silvana Ward CNP. Will route lab results to to review and advise. Mary Broussard Ma documented in this encounter [facility] 03-24-2022 Instructions Silvana Ward APRN.CNP - 03/24/2022 1:40 PM EDT 1. Schedule EKG, echo, and event monitor. 2. Get labs. 3. If you get any sustained palpitations, or palpitations associated w/ other symptoms (pain, shortness of breath, dizziness, etc) -- go to the ER. Health Promotion: - Eat healthy go to [employer]gov to get started - Have a yearly [...] - Wear sunscreen documented in this encounter [facility] 03-24-2022 History of Presen t illness Narrative [...] onset 03/16/21, monoclonal Ab tx per pulmonology [facility] Non morbid obesity 07/15/2016 S/P laparoscopic [...] Health Promotion: - Eat healthy go to [employer] to get started - Have a yearly [...] as needed for worsening/no improvement. Silvana Ward APRN.SENIOR QUALITATIVE RESEARCHER This note was partially generated using Perceptis voice recognition system. Note was reviewed for accuracy. There may be minor misspellings or grammar miscues with ArthroCADon voice recognition. documented in this encounter [facility] documented as of this encounter (statuses as of 03/20/2022) [facility] History of Past illness Narrative* Problem Noted Date Resolved Date Laryngitis 03/08/2015 07/15/2016 Counseling and coordination of care 01/29/2015 05/14/2015 documented as of this encounter (statuses as of 03/23/2022) [facility] History of Past illness Narrative* Problem Noted Date Resolved Date Laryngitis 03/08/2015 07/15/2016 Counseling and coordination of care 01/29/2015 05/14/2015 documented as of this encounter (statuses as of 03/24/2022) [facility] History of Past illness Narrative* Problem Noted Date Resolved Date Laryngitis 03/08/2015 07/15/2016 Counseling and coordination of care 01/29/2015 05/14/2015 documented as of this encounter (statuses as of 03/26/2022) [facility] History of Past illness Narrative* Problem Noted Date Resolved Date Laryngitis 03/08/2015 07/15/2016 Counseling and coordination of care 01/29/2015 05/14/2015 documented as of this encounter (statuses as of 04/24/2022) [facility] History of Past illness Narrative* Problem Noted Date Resolved Date Laryngitis 03/08/2015 07/15/2016 Counseling and coordination of care 01/29/2015 05/14/2015 documented as of this encounter (statuses as of 05/22/2022) [facility] History of Past illness Narrative* Problem Noted Date Resolved Date Laryngitis 03/08/2015 07/15/2016 Counseling and coordination of care 01/29/2015 05/14/2015 documented as of this encounter (statuses as of 06/02/2022) [address]10[address] History of Past illness Narrative* Problem Noted Date Diagnosed Date Resolved Date Laryngitis 03/08/2015 07/15/2016 Counseling and coordination of care 01/29/2015 05/14/2015 documented as of this encounter (statuses as of 04/07/2023) [address]2015 History of Past illness Narrative* Problem Noted Date Diagnosed Date Resolved Date Laryngitis 03/08/2015 07/15/2016 Counseling and coordination of care 01/29/2015 05/14/2015 documented as of this encounter (statuses as of 04/07/2023) [address]2015 History of Past illness Narrative* Problem Noted Date Diagnosed Date Resolved Date Laryngitis 03/08/2015 07/15/2016 Counseling and coordination of care 01/29/2015 05/14/2015 documented as of this encounter (statuses as of 05/06/2023) [address] History of Past illness Narrative* Problem Noted Date Diagnosed Date Resolved Date Laryngitis 03/08/2015 07/15/2016 Counseling and coordination of care 01/29/2015 05/14/2015 documented as of this encounter (statuses as of 05/20/2023) [address] History of Past illness Narrative* Problem Noted Date Diagnosed Date Resolved Date Laryngitis 03/08/2015 07/15/2016 Counseling and coordination of care 01/29/2015 05/14/2015 documented as of this encounter (statuses as of 05/24/2023) [address] History of Past illness Narrative* Problem Noted Date Diagnosed Date Resolved Date Laryngitis 03/08/2015 07/15/2016 Counseling and coordination of care 01/29/2015 05/14/2015 documented as of this encounter (statuses as of 06/23/2023) [address] History of Past illness Narrative* Problem Noted Date Diagnosed Date Resolved Date Laryngitis 03/08/2015 07/15/2016 Counseling and coordination of care 01/29/2015 05/14/2015 documented as of this encounter (statuses as of 08/03/2023) [facility] Encounter for screening mammogram for breast cancer [facility] Diagnosis Wellness examination- Primary Palpitations Hypertension, essential Unspecified essential hypertension Anxiety with depression documented in this encounter [facility] note* Diagnosis Mitral valve annular calcification- Primary Mitral valve disorders 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 documented in this encounter [facility] note* Diagnosis Wellness examination- Primary Adjustment reaction [...] Other screening mammogram documented in this encounter [facility] note* Diagnosis Gross hematuria- Primary documented in this encounter [facility] for referral (narrative)* Diagnostic Procedure Only (Routine) - Pending Review Specialty Diagnoses / Procedures Referred By Simona alonso Referred To Contact [facility] Diagnoses Encounter for screening mammogram for breast cancer Procedures ROCIO SCREENING SCREENING MAMMOGRAPHY BI 2-VIEW BREAST INC Hari Goldsmith PA-C [address] [place] [address] [facility] [address] [place] [address] Referral ID Status Reason Start Date Expiration Date Visits Requested Visits Authorized [id number] Pending Review Auto-Generat ed Referral 03/18/2022 04/17/2023 1 1 [facility] for referral (narrative)* Outpatient Procedure (Routine) - Pending Review Specialty Diagnoses / Procedures Referred By Simona alonso [facility] Diagnoses Palpitations Procedures ECHO ECHO TTHRC R-T 2D W/WOM-MODE COMPL SPEC&COLR D Silvana Ward, SENIOR QUALITATIVE RESEARCHER [address] [place] [address] [facility] [address] [place] [address] Referral ID Status Reason Start Date Expiration Date Visits Requested Visits Authorized [id number] Pending Review Auto-Generat ed Referral 03/24/2022 03/24/2023 1 1 * Outpatient Procedure (Routine) - Pending Review Specialty Diagnoses / Procedures Referred By Jollyac t Referred To [facility] Diagnoses Palpitations Procedures ECG COMPLETE ECG ROUTINE ECG W/LEAST 12 LDS W/I&R Silvana Ward APRN.SENIOR QUALITATIVE RESEARCHER [address] [place] [address] [facility] [address] [place] [address] Referral ID Status Reason Start Date Expiration Date Visits Requested Visits Authorized [id number] Pending Review Auto-Generat ed Referral 03/24/2022 03/24/2023 1 1 [facility] for referral (narrative)* Diagnostic Procedure Only (Routine) - Pending Review Specialty Diagnoses / Procedures Referred By Simona t Referred To Contact [facility] Diagnoses Visit for screening mammogram Procedures ROCIO SCREENING W KASSIDY SCREENING DIGITAL BREAST TOMOSYNTHESIS BI SCREENING MAMMOGRAPHY BI 2-VIEW BREAST INC CAD Silvana Ward APRN.SENIOR QUALITATIVE RESEARCHER [address] [place] [address] [facility] [address] [place] [address] Referral ID Status Reason Start Date Expiration Date Visits Requested Visits Authorized [id number] Pending Review Auto-Generat ed Referral 04/06/2023 05/05/2024 1 1 * Diagnostic Procedure Only (Routine) - Pending Review Specialty Diagnoses / Procedures Referred By Simona t Referred To Contact [facility] Diagnoses Elevated liver enzymes Procedures US ABD RIGHT UPPER QUADRANT US ABDOMINAL REAL TIME W/IMAGE LIMITED Silvana Ward APRN.SENIOR QUALITATIVE RESEARCHER [address] [place] [address] [facility] Referral ID Status Reason Start Date Expiration Date Visits Requested Visits Authorized [id number] Pending Review Auto-Generat ed Referral 04/06/2023 05/05/2024 1 1 * Consult, Test, Treat (Routine) - Authorized Specialty Diagnoses / Procedures Referred By Contac t Referred To Contact Orthopedics Diagnoses Lateral epicondylitis of both elbows Procedures CONSULT TO ORTHOPAEDICS OFFICE/OUTPATIENT [facility] 60-74 MINUTES Silvana Ward APRN.CNP [address] [place] [address] Referral ID Status Reason Start Date Expiration Date Visits Requested Visits Authorized [id number] Authorized PCP Requested Referral 04/06/2023 04/05/2024 1 1 * Transition of Care (Routine) - Ref Not Required Specialty Diagnoses / Procedures Referred By Contac t Referred To Contact Dermatology Diagnoses Skin cancer screening Procedures CONSULT TO DERMATOLOGY Silvana Ward APRN.CNP [address] [place] [address] Referral ID Status Reason Start Date Expiration Date Visits Requested Visits Authorized [id number] Ref Not Required PCP Requested Referral 04/06/2023 04/05/2024 1 1 [facility] Advance Directives No Advanced Directives Records FoundDocuments on File Type Date Recorded Patient Solid Waste Analyst Expl anation Advance Directive(s) 07/29/2016 10:56 AM Documents on File Type Date Recorded Patient Solid Waste Analyst Expl anation Advance Directive(s) 07/29/2016 10:56 AM Reason for Referral Specialty Diagnoses / Procedures Referred By Contac t Referred To Contact Cardiology Diagnoses Mitral valve annular calcification Procedures CONSULT TO CARDIOLOGY OFFICE/OUTPATIENT [facility] 60-74 MINUTES Hari Moss PA-C [address] [place] [address] Referral ID Status Reason Start Date Expiration Date Visits Requested Visits Authorized [id number] Authorized PCP Requested Referral 04/24/2022 04/24/2023 1 1 Specialty Diagnoses / Procedures Referred By Contac t Referred To Contact Urology Diagnoses Gross hematuria Procedures CONSULT TO UROLOGY OFFICE/OUTPATIENT [facility] 60-74 MINUTES Silvana Ward APRN.SENIOR QUALITATIVE RESEARCHER [address] [place] [address] Referral ID Status Reason Start Date Expiration Date Visits Requested Visits Authorized [id number] Authorized PCP Requested Referral 08/02/2023 08/01/2024 1 1 Specialty Diagnoses / Procedures Referred By Simona alonso Referred To Contact CT IMAGING Diagnoses Gross hematuria Procedures CT UROGRAM WO/W IVCON CT ABD & PELVIS W/WO CONTRST 1+ BODY REGNS Silvana Ward, SUPERVISORY TRAINING SPECIALIST.SENIOR QUALITATIVE RESEARCHER [address] [facility] [place] [address] [place] [id number] Referral ID Status Reason Start Date Expiration Date Visits Requested Visits Authorized [id number] Pending Review Auto-Generat ed Referral 08/02/2023 08/31/2024 [...] or prosecute any alcohol or drug abuse patient.[facility] System[facility] the event this information is protected by the Federal Confidentiality of Alcohol and Drug Abuse Patient Records regulations: The Federal rules restrict any use of the information to criminally investigate or prosecute any alcohol or drug abuse patient.[facility] SystemIn the event this information is protected by the Federal Confidentiality of Alcohol and Drug Abuse Patient Records regulations: The Federal rules restrict any use of the information to criminally investigate or prosecute any alcohol or drug abuse patient.[facility] SystemIn the event this information is protected by the Federal Confidentiality of Alcohol and Drug Abuse Patient Records regulations: The Federal rules restrict any use of the information to criminally investigate or prosecute any alcohol or drug abuse patient.[facility] SystemIn the event this information is protected by the Federal Confidentiality of Alcohol and Drug Abuse Patient Records regulations: The Federal rules restrict any use of the information to criminally investigate or prosecute any alcohol or drug abuse patient.[facility] SystemIn the event this information is protected by the Federal Confidentiality of Alcohol and Drug Abuse Patient Records regulations: The Federal rules restrict any use of the information to criminally investigate or prosecute any alcohol or drug abuse patient.[facility] System[facility] the event this information is protected by the Federal Confidentiality of Alcohol and Drug Abuse Patient Records regulations: The Federal rules restrict any use of the information to criminally investigate or prosecute any alcohol or drug abuse patient.[facility] the event this information is protected by the Federal Confidentiality of Alcohol and Drug Abuse Patient Records regulations: The Federal rules restrict any use of the information to criminally investigate or prosecute any alcohol or drug abuse patient.[facility] SystemIn the event this information is protected by the Federal Confidentiality of Alcohol and Drug Abuse Patient Records regulations: The Federal rules restrict any use of the information to criminally investigate or prosecute any alcohol or drug abuse patient.[facility] SystemIn the event this information is protected by [...] or prosecute any alcohol or drug abuse patient.[facility] SystemIn the event this information is protected by the Federal Confidentiality of Alcohol and Drug Abuse Patient Records regulations: The Federal rules restrict any use of the information to criminally investigate or prosecute any alcohol or drug abuse patient.[facility] SystemIn the event this information is protected by the Federal Confidentiality of Alcohol and Drug Abuse Patient Records regulations: The Federal rules restrict any use of the information to criminally investigate or prosecute any alcohol or drug abuse patient.[facility] SystemIn the event this information is protected by the Federal Confidentiality of Alcohol and Drug Abuse Patient Records regulations: The Federal rules restrict any use of the information to criminally investigate or prosecute any alcohol or drug abuse patient.[facility] SystemIn the event this information is protected by the Federal Confidentiality of Alcohol and Drug Abuse Patient Records regulations: The Federal rules restrict any use of the information to criminally investigate or prosecute any alcohol or drug abuse patient.[facility] Care Teams (unrecognized sec tion and content) Gis Instructor Relationship Specialty Start Date End Date Hari Moss PA-C [address] [place] [address] PCP - General Family Practice 01/21/17 Gis Instructor Relationship Specialty Start Date End Date Hari Moss PA-C [address] [place] [address] PCP - General Family Practice 01/21/17 Gis Instructor Relationship Specialty Start Date End Date Hari Moss PA-C [address] [place] [address] PCP - General Family Practice 01/21/17 Gis Instructor Relationship Specialty Start Date End Date Hari Moss PA-C [address] [place] [address] PCP - General Family Practice 01/21/17 Gis Instructor Relationship Specialty Start Date End Date Hari Moss PA-C [address] [place] [address] PCP - General Family Medicine 01/21/17 Gis Instructor Relationship Specialty Start Date End Date Hari Moss PA-C [address] [place] [address] PCP - General Family Medicine 01/21/17 Gis Instructor Relationship Specialty Start Date End Date Hari Moss PA-C [address] [facility] [place] [address] PCP - General Family Medicine 01/21/17 Gis Instructor Relationship Specialty Start Date End Date Hari Moss PA-C [address] [facility] [place] [address] PCP - General Family Medicine 01/21/17 Gis Instructor Relationship Specialty Start Date End Date Hari Moss PA-C [address] [facility] [place] [address] PCP - General Family Medicine 01/21/17 Gis Instructor Relationship Specialty Start Date End Date Hari Moss PA-C [address] [facility] [place] [address] PCP - General Family Medicine 01/21/17 Gis Instructor Relationship Specialty Start Date End Date Hari Moss PA-C [address] [facility] [place] [address] PCP - General Family Medicine 01/21/17 Gis Instructor Relationship Specialty Start Date End Date Hari Moss PA-C [address] [facility] [place] [address] PCP - General Family Medicine 01/21/17 Reason [...] BE BASED ON THE PRIMARY CLINICAL RECORDS. [facility]. provides no warranty or guarantee of the accuracy or completeness of information in this document.
== END | disposition home or self-care (01) ==
LOC: CT 11:44
PROVIDERS: PCP Registered Nurse; Referring Provider Urology; Visit Provider Urology
DX: R10.9 Unspecified abdominal pain (principal); R31.9 Hematuria, unspecified; R20.1 Hypoesthesia of skin
CPT/HCPCS: 74176

== ENCOUNTER 2023-11-16 10:00 | Outpatient (RCR) | payer OTHER, SELFPAY ==
--- NOTE | 2023-09-27 19:26 | HP.OTEVAL_ITS ---
Patient's Visit Information Visit Information Visit Information: CHRISTIN BABB is a 48 year old F, referred to Occupational Therapy by Dr. Alejandro Graham DO, with a diagnosis of bilateral epicondylitis. Date of Evaluation: 09/27/23 Occupational Therapist: RAS Rasmussen/Tripp, CHT Subjective Subjective: This 48 year old female was seen for OT eval with dx of bilateral lat. epi in 2021 pt states she noticed right elbow pain following cooking for her dtrs. graduation ( make mac & cheese) stirring of large pot- and has struggled with pain since. states left became more and more problematic possibly due to protecting right arm. pt states she did have left cortisone injection x 2 and right elbow with 1 injection. pt states left arm is better but still has the pain. pt states she does have her tennis elbow braces she tries to wear as much as she can- states Dr. merino'jason wrist braces to limit wrist motion. (therapist agreed with and ed. pt on why) pt states she will get wrist cock up braces to wear. pt also wants to return to her PLOF with use of bilateral UE without having pain. pt employed at [employer] and works in [employer]. ( 3x12 shifts) Pain right elbow pain: Current Pain Intensity: 3 Pain Intensity Range: 4 and 5 left elbow: Current Pain Intensity: 4 Pain Intensity Range: 7 ROM Elbow: right 0/145 left -20/140 Forearm: right/left supination/pronation WNL Wrist: right 60/55 left 65/65 ROM Comments: pt has pain with attempt at full left elbow ext. Strength Help Desk Administrator: right 35# left 25# Lateral Pinch: right 8# left 6# Tripod Pinch: right 6# left 2# Strength Comments: with elbow straight right 20# left 10# painful with senior consulting manager test indication of positive test Sensation Sensation Comments: states tingling on left at times comes and goes Special Tests Lat Epiconylitis - as named: positive right and left Quick DASH-Disab of Arm,Shoulder& Hand Quick DASH Score: 41.0700 Goals Goal:: pt will demo a increase in bilateral senior consulting manager strength by 15# to increase pts ind.with ADLs and IADLs. pt will demo a straight arm senior consulting manager test with bilateral test with increase in senior consulting manager strength by 15# or greater to increase pts ind.with ADLS and IADLs by d.c Goal:: pt will demo left elbow ext to -5 or greater to increase pts ind.with ADLS and IADls by d/c Goal:: Pt will report pain no greater than 2/10 with use of affected hand with BADLs and IADLs by d/c. Goal:: Pt will demo understanding of work/lifting and carry ergonomics /lateral epicondylitis precautions to decrease stress on tendons to increase pts independent with ADLs, IADLS and work tasks by d/c. Goal:: Pt will demo understanding of using supportive bracing 80% of workday/ADLS to decrease stress on tendon origin to allow healing and decrease pain by end of 2nd session. Rehabilitation General Assessment: pt demo with positive symptoms of bilateral epicondylitis ( pain , senior consulting manager weakness and pain with palpation to lateral epi) limiting pts use of bilateral UE with ADLS and IADLS. pt would benefit from skilled OT services 2x week for 4-6 weeks to decrease pts pain- initiate shoulder isometrics, eccentric wrist ext ex. as well as ed. pt on lateral epicondylitis precautions and when pt able transition into PRE. program. pt demo understanding and agrees to POC. Rehabilitation Potential: Good Anticipated Interventions Anticipated Interventions: A/AAROM/PROM, Strengthening, Triggerpoint Release, Modalities, Orthoses, Joint Protection/Energy Conservation, Ergonomic Education, Education re assistive Equipment, Education re Diagnosis and Home Program Visit Plan Frequency: 2x /Week Duration: 4-6 Weeks TEXT: Thank you for the opportunity to evaluate your patient. For Medicare and Medicare HMO plans, please review the plan of care and approve it. It will need to be FAXED BACK to us at [phone] for Medicare purposes. Please let me know if there are questions or concerns regarding this plan of care. Physician Signature: Date:
--- NOTE | 2024-01-31 17:28 | HP.OT.NRP ---
Patient Information Patient Information: CHRISTIN BABB was seen in my office for initial evaluation on 09/27/23. The following Plan of Care was established for this patient: POC Established Initial Frequency: 2x /Week Initial Duration: 4-6 Weeks Plan: Continue POC 2 weeks (4-6 week) Anticipated Interventions Anticipated Interventions: A/AAROM/PROM, Strengthening, Triggerpoint Release, Modalities, Orthoses, Joint Protection/Energy Conservation, Ergonomic Education, Education re assistive Equipment, Education re Diagnosis and Home Program Last Seen Last Seen: This patient was last seen in our office 11/16/23. Pertinent comments regarding their Occupational therapy will appear below: pt was seen for 10 OT sessions. No further apts. have been scheduled at this time. Due to time lapse in services pt D/C. At this point I will be discontinuing this patient from occupational therapy. I would be happy to see this patient again in the future if found appropriate by the physician. Thank you! Mariaelena Palacio, OTR/L, CHT
== END 2023-11-16 19:00 | disposition home or self-care (01) ==
LOC: OT 10:00
PROVIDERS: PCP Registered Nurse; Referring Provider Orthopaedic Surgery; Visit Provider Orthopaedic Surgery
DX: M77.11 Lateral epicondylitis, right elbow (principal); M77.12 Lateral epicondylitis, left elbow
CPT/HCPCS: 97035; 97110; 97140; 97166; 97530

== ENCOUNTER → 2023-11-25 | Outpatient (CLI) | payer OTHER, SELFPAY | END | disposition home or self-care (01) | LOC: LAB 16:55 | PROVIDERS: PCP Registered Nurse; Referring Provider Urology; Visit Provider Urology | DX: Z01.812 Encounter for preprocedural laboratory examination (principal) | CPT/HCPCS: 87086; 87088 ==

== ENCOUNTER 2023-12-03 06:58 | Day surgery (SDC) | payer OTHER, SELFPAY ==
[2023-11-30 09:38] LABS: Hematocrit 42.2 % (37-47); Hemoglobin 14.5 g/dL (12.0-15.0); Mean Corp Hgb Conc 34.4 g/dL (32-36); Mean Corpuscular Hgb 29.5 pg (27.0-32.0); Mean Corpuscular Volume 85.9 fL (81-99); Mean Platelet Vol. 10.1 fl (6.2-12.0); Platelet Count 235 K/mm3 (150-450); RBC Distribution Width CV 12.1 % (11.6-14.6); RBC Distribution Width SD 37.4 fl (35.1-43.9); Red Blood Count 4.91 M/mm3 (4.2-5.4); White Blood Count 6.5 K/mm3 (4.4-11.0)
[2023-11-30 10:15] LABS: Anion Gap 5 (5-15); BUN 17 mg/dL (7-18); BUN/Creat Ratio 23.5 RATIO (10-20); Calcium,Total 9.5 mg/dL (8.5-10.1); Chloride 106 mmol/L (98-107); Creatinine, Serum 0.72 mg/dL (0.55-1.02); EST Glomerular Filtration Rate 91 mL/min (>60); Est Glom Filt Rate - Afr Amer 111 mL/min (>60); Glucose 140 mg/dL (74-106); Sodium Level 137 mmol/L (136-145)
[2023-12-03] VITALS (9 sets, daily range): BP systolic 92–142; BP diastolic 50–90; PULSE 58–74; RESP 16; TEMP 36.2–36.9; O2SAT 93–97; BMI 40.9
[2023-12-03] MEDS: Lactated Ringers 1,000 ML 15 ML IV (07:14)
[2023-12-03] MEDS: Ciprofloxacin 400 MG/200 ML BAG 200 MG IV (09:33)
--- NOTE | 2023-12-03 10:06 | EX.PCM.DISCH ---
Discharge Instructions Diet Discharge Diet: No restrictions Activity Discharge Activity: Return to Normal Activity Dressing / Incision Call your doctor if you observe: Fever of 101 or Higher, Inability to urinate and Inability to have a bowel movement Follow Up Care Please Follow Up With: Mnea Duggan MD When: Schedule follow up appointment in 3 months, sooner if issues. Test Results: Test results from this visit will be discussed in further detail at your follow-up appointment, if applicable. Discharge Plan Admission Attending Provider: Mena Duggan Primary Care Provider: Silvana Ward NP Discharge Orders/Prescriptions Prescriptions: Continued sertraline 100 MG tablet 100 mg PO QHS lisinopril 10 MG tablet 10 mg PO QHS metformin 500 mg tablet extended release 24 hr 500 mg PO DAILY Referrals / Follow Up: Silvana Ward NP, ENVELOPE SEALER OPERATOR-C [Primary Care Provider] - Disposition Disposition (needs filled in before D/C Order can be placed): Home, Self Care
--- NOTE | 2023-12-03 10:07 | PCM.OPRPT ---
Report of Operation Date of Procedure: 12/03/23 Pre-Operative Diagnosis: Right ureteral calculus Post-Operative Diagnosis: Same, passed Surgery/Procedure Performed:: Cystoscopy, right ureteroscopy Surgeon: Mena Duggan Type of Anesthesia: General Specimen's removed: None Description of Procedure: The patient is a 48-year-old female with a longstanding history of stones. She developed gross hematuria and a right ureteral stone was identified on CT. She was doing well and a CT was repeated after a trial of passage revealing the stone to still be present. She now presents for ureteroscopy. Informed consent was obtained. She was taken to the operating room and placed on the operating room table. Anesthesia monitored the head, neck, airway, IV access and vital signs throughout the case. Once anesthesia was appropriately administered, she was placed into dorsolithotomy position was prepped and draped in usual sterile fashion. The cystoscope was inserted through the urethra under direct visualization into the urinary bladder which was visualized in its entirety revealing no evidence of mass, erythema, ulceration or foreign body. A 0.035 Glidewire was used to gently cannulate the right ureteral orifice and advanced easily into the renal pelvis is seen on fluoroscopy. Alongside of this wire, a semirigid ureteroscope was advanced without difficulty all the way up to the renal pelvis revealing no evidence of mass, erythema, or stone. The entire length of the ureter was visualized on the way out revealing no evidence of injury. The decision was made to leave the patient without an indwelling stent as this was discussed preoperatively and she does not deal well with stents. The bladder was emptied and the scope was removed. She was awakened and taken to the recovery room in good condition. There were no complications during this procedure. Grafts/Implants Used: None Complications None Admit VTE Documentation VTE Present on Admission: Yes VTE Mechan Device Prophylaxis: SCD's VTE Pharm Prophylaxis ordered?: No Reason prophylaxis not ordered:: Treatment Not Indicated
[2023-12-03] MEDS: Ketorolac 15 MG/ML Vial IV (11:31)
== END 2023-12-03 12:29 | disposition home or self-care (01) ==
LOC: SDC 06:58 → AC 06:58
PROVIDERS: PCP Registered Nurse; Referring Provider Urology; Visit Provider Urology
PROC: 0TJ98ZZ Inspection of Ureter, Via Natural or Artificial Opening Endoscopic (ICD-10-PCS; CPT 52352; principal; 2023-12-03 08:25)
DX: N20.1 Calculus of ureter (principal); E11.9 Type 2 diabetes mellitus without complications; I10 Essential (primary) hypertension; Z90.710 Acquired absence of both cervix and uterus; Z90.49 Acquired absence of other specified parts of digestive tract; F41.9 Anxiety disorder, unspecified; F32.A Depression, unspecified; I34.9 Nonrheumatic mitral valve disorder, unspecified; R31.0 Gross hematuria; R10.9 Unspecified abdominal pain
CPT/HCPCS: 52351; 00910; 36415; 76000; 80048; 85027; J7120; J0744; J2405

== ENCOUNTER 2023-12-23 09:36 | Day surgery (SDC) | payer OTHER, SELFPAY ==
[2023-12-23 09:42] VITALS: BMI 39.1
--- NOTE | 2023-12-23 16:31 | PCM.OPRPT ---
Report of Operation Date of Procedure: 12/23/23 Pre-Operative Diagnosis: venous insufficiency, painful varicose veins Post-Operative Diagnosis: same Surgery/Procedure Performed:: chemical ablation, right below knee GSV, small saphenous veins Surgeon: Jose Ramon Byers Type of Anesthesia: Local and Sedation,Conscious Estimated Blood Loss (mL): 3 Description of Procedure: HPI: Patient is a 40-year-old female with painful varicose veins of the right lower extremity and reflux of the great saphenous vein below the knee in the small saphenous vein. She is taken now for chemical ablation. Description procedure: Upon obtaining informed consent and verification of correct patient procedure site patient taken to the [facility] where she was positioned prepped and draped in usual sterile fashion. Time was performed upon sedation administered Versed and fentanyl. Ultrasound used to evaluate the great saphenous vein from the ankle to the knee. Skin overlying the saphenous at the ankle was anesthetized 1% lidocaine the vessel accessed with a micropuncture needle wire. This then exchanged out for the 7 Bangladeshi sheath was advanced into position. Through 7 Bangladeshi sheath the glue delivery guide was then advanced and positioned at the proximal calf. The glue delivery catheter was then advanced via the sheath and positioned just above a large branch that appeared to be a varicosity emanating and projecting towards the calf. Glue was then deposited along the treatment zone down to the ankle and the guided catheter withdrawn, by the sheath withdrawn a minute pressure held to hemostasis was noted. Neck small saphenous vein was assessed with ultrasound from the ankle to the popliteal fossa and skin overlying the vessel at the distal calf Nestabs 1% lidocaine. Was then accessed with placement wire exchanged for 7 Bangladeshi sheath. Through the 7 Bangladeshi sheath and the glue delivery guide was advanced in position 5 cm inferior to the junction of the small saphenous with the deep system. The glue delivery catheter was then advanced in position 5 cm below the confluence of the deep system and glue deposit on the treatment zone down to the distal calf. The delivery catheter and sheath were then withdrawn manage pressure held for 5 minutes after satisfactory stasis was noted. Patient then wrapped in Ced wrap taken to the recovery room prior to discharge to home.
--- NOTE | 2023-12-27 15:30 | PCM.HP.STD ---
HPI - General HPI Narrative CHRISTIN BABB, is a 48 F who presents with painful varicose veins with symptoms refractory to compression. She has GSV below the knee and SSV reflux. Given distribution of reflux she is taken for chemical ablation. [facility] Medical History (Updated 12/27/23 @ 15:[address] Jos eRamon Byers MD) Acute appendicitis Anxiety Back pain Back pain Cardiology follow-up encounter COVID-19 Depression Diabetes Encounter for screening for COVID-19 Essential hypertension Fatty liver Fatty liver Hemorrhoid History of colonic polyps History of echocardiogram History of edema History of stress test HTN (hypertension) Hypertension Labral tear of right hip joint Laceration of right thumb without foreign body without damage to nail Leg cramps Nephrolithiasis Non-smoker Nonrheumatic mitral valve disorder Restless legs Right hip pain Right lower quadrant pain Segmental and somatic dysfunction of cervical region Segmental and somatic dysfunction of lumbar region Segmental and somatic dysfunction of pelvic region Segmental and somatic dysfunction of thoracic region Shortness of breath on exertion Urinary tract infection Wears glasses Home Medications sertraline 100 mg tablet 100 mg PO QHS mental health 08/30/17 [History Last Taken 03/20/21] lisinopril 10 mg tablet 10 mg PO QHS blood pressure 12/14/17 [History Last Taken 03/20/21] metformin 500 mg tablet,extended release 24 hr 500 mg PO DAILY 11/29/23 [History Last Taken Unknown] Allergy/AdvReac Type Severity Reaction Status Date / Time latex Allergy Swelling, Verified 12/03/23 07:11 itching Penicillins [PCN] Allergy other Verified 12/03/23 07:11 Sulfa (Sulfonamide Allergy Hives, Verified 12/03/23 07:11 Antibiotics) welts Family History Mother Hypertension Thyroid disorder Depression Rheumatoid arthritis Grandmother Parkinsons disease Surgical History History of adenoidectomy History of History of cholecystectomy (~2001) History of colonoscopy (~2015) History of hysterectomy (~2011) History of laparoscopic appendectomy (~09/03/21) History of lithotripsy History of tonsillectomy Social History household members: spouse and children housing: house number of children: 3 current occupational status: employed pets and animals: Yes Smoking Status: Never smoker alcohol intake: never substance use type: does not use caffeine: Yes (occasional) what type of physical activity do you participate in: none seatbelt use: always do you feel safe at home: Yes Vital Signs Vital Signs Vital Signs: Weight Weight: 250 lb Body Mass Index (BMI) 39.1 Physical Exam Const alert, oriented x3, no apparent distress and healthy appearing General Appearance: cooperative; Negative for combative or lethargic Orientation / Consciousness: awake Exam Limitations: no limitations HEENT Head and Scalp: normocephalic and atraumatic Eyes EOMs intact bilaterally General Eye: normal appearance of both eyes Neck full ROM, no lymphadenopathy and thyroid normal General: trachea midline; Negative for tenderness Thyroid: thyroid normal Resp normal respiratory effort and no use of accessory muscles Effort and Inspection: Negative for labored, stridor or audible wheezes Cardio regular rate and regular rhythm Back/Spine Cervical Spine: cervical ROM normal Extremity full ROM, normal capillary refill and no clubbing, cyanosis or edema Skin no rashes or lesions noted and no wounds Neuro oriented x3, CN's II-XII intact bilaterally, no focal motor deficits and no sensory deficits noted Psych thought process normal, cooperative, affect normal, speech normal and activity/motor behavior normal Assessment & Plan Assessment/Plan (1) Varicose veins of right lower extremity with pain: PLAN: -GSV, SSV ablation
== END 2023-12-23 17:54 | disposition home or self-care (01) ==
LOC: CLSP 09:39
PROVIDERS: PCP Registered Nurse; Referring Provider Surgery Trauma Surgery; Visit Provider Surgery Trauma Surgery
DX: I83.811 Varicose veins of right lower extremity with pain (principal); E11.59 Type 2 diabetes mellitus with other circulatory complications; I87.2 Venous insufficiency (chronic) (peripheral); Z86.16 Personal history of COVID-19; I10 Essential (primary) hypertension; Z79.84 Long term (current) use of oral hypoglycemic drugs; Z90.49 Acquired absence of other specified parts of digestive tract
CPT/HCPCS: 36482; 36483; 99152; 99153; C1894; J7040

== ENCOUNTER 2023-12-27 12:20 | Outpatient (CLI) | payer OTHER, SELFPAY ==
[2023-12-22 10:16] VITALS: BMI 39.7
--- NOTE | 2023-12-27 12:51 | VDLE_ITS ---
Reason For Study: S/P Rt GSV/ SSV chemical ablation. RIGHT LEFT GSV from SFJ to knee is compressible. CFV is compressible, spontaneous, phasic, GSV from knee to ankle is dilated and competent, and demonstrates normal NONCOMPRESSIBLE with hyperechoic intraluminal augmentation. echoes. Finding is consistent with recent chemical ablation procedure. SSV approximately 1.52cm distal to Saphenopopliteal junction to ankle is dilated and NONCOMPRESSIBLE with hyperechoic intraluminal echoes. Finding is consistent with recent chemical ablation procedure. CFV is compressible, spontaneous, phasic, competent and demonstrates normal augmentation. FV is compressible, spontaneous, phasic, competent and demonstrates normal augmentation. POP V is compressible, spontaneous, phasic, competent and demonstrates normal augmentation. T/P Trunk is compressible. PTV is compressible. RT PerV is compressible. Procedure This is a venous duplex using B-mode, color flow and spectral Doppler. Exam performed in department. The exam was diagnostic. VL/Venous Duplex US, Unilateral Interpretation Summary Deep veins of the right lower extremity are patent and compressible segmentally . There is no evidence of right lower extremity deep vein thrombosis. Right great saphenous v ein below the knee and small saphenous veins occluded consistent with recent chemical ablation Ordering Physician: Kari Bagley Referring Physician: Silvana Ward Performed By: Scottie Saha, STEPHEN
== END 2023-12-27 23:59 | disposition home or self-care (01) ==
LOC: CVS 12:21
PROVIDERS: PCP Registered Nurse; Referring Provider Physician Assistant; Visit Provider Physician Assistant
DX: I87.2 Venous insufficiency (chronic) (peripheral) (principal)
CPT/HCPCS: 93971

== ENCOUNTER → 2024-01-06 | Outpatient (CLI) | payer OTHER, SELFPAY ==
--- NOTE | 2024-01-06 14:56 | VDLE_ITS ---
Reason For Study: pain RIGHT LEFT CFV is compressible, spontaneous, phasic, CFV is compressible, spontaneous, phasic, competent and demonstrates normal competent, and demonstrates normal augmentation. augmentation. FV is compressible, spontaneous, phasic, competent and demonstrates normal augmentation. POP V is compressible, spontaneous, phasic, competent and demonstrates normal augmentation. T/P Trunk is compressible. PTV is compressible. RT PerV is compressible. GSV is dilated and noncompressible from the ankle to the knee S/P chemical ablation. No extension into the deep veins. GSV from knee to S-F Junction is compressible. SSV is dilated and noncompressible S/P chemical ablation. No extension into the deep veins. Varicose vein at the ankle is dilated and noncompressible. Procedure This is a venous duplex using B-mode, color flow and spectral Doppler. Exam performed in department. The exam was diagnostic. A preliminary report was called and/or faxed to Dr. Byers's nurse. VL/Venous Duplex US, Unilateral Interpretation Summary Deep veins of the right lower extremity are patent and compressible segmentally . There is no evidence of right lower extremity deep vein thrombosis. Superficial thrombus at varicosities at ankle Ordering Physician: Jose Ramon Byers Performed By: Yogi Torres, RVT
== END | disposition home or self-care (01) ==
LOC: CVS 14:55
PROVIDERS: PCP Registered Nurse; Visit Provider Surgery Trauma Surgery
DX: I83.811 Varicose veins of right lower extremity with pain (principal)
CPT/HCPCS: 93971

== ENCOUNTER 2024-02-11 09:57 | Emergency (ER) | payer OTHER, SELFPAY ==
[2024-02-11 09:57] VITALS: BP 165/101; PULSE 90; RESP 14; TEMP 36.2; O2SAT 98
--- NOTE | 2024-02-11 10:07 | EDS_ITS ---
HPI History of Present Illness HPI Narrative: Patient presents with injury to her left knee that occurred yesterday. Patient states she has been having some pain in her left knee for the past several days. Patient states she was on the ladder and twisted her knee last night. Patient states her pain is burning. Patient states it is worse with any flexion. Patient states nothing seems to help with her pain. Patient states she has an appointment with Dr. Gil next Wednesday (in 4 days). Patient states her pain is worse today and she does not think she can make it to that appointment. Patient has been wearing her brace with minimal relief. Chief Complaint: Lower Extremity Injury Occured/Mechanism Comment: Twisting injury Onset/Context/Timing Onset: Yesterday and Days Timing: Continuous Quality of Pain: Burning Location: Left knee Current Severity: Severe Maximum Severity: Severe Worsened by: Flexion Relieved by: Nothing Associated Symptoms Associated Symptoms: Negative for Parasthesia, Weakness or Loss of Funtion PFSH PFS Medical History Diabetes Fatty liver Restless legs Shortness of breath on exertion Leg cramps Cardiology follow-up encounter History of echocardiogram History of stress test Nonrheumatic mitral valve disorder Fatty liver Essential hypertension Encounter for screening for COVID-19 Acute appendicitis Right lower quadrant pain Wears glasses Depression Anxiety Back pain Non-smoker History of edema Hypertension Labral tear of right hip joint Right hip pain Segmental and somatic dysfunction of pelvic region Segmental and somatic dysfunction of lumbar region Segmental and somatic dysfunction of thoracic region Segmental and somatic dysfunction of cervical region COVID-19 History of colonic polyps Back pain HTN (hypertension) Hemorrhoid Laceration of right thumb without foreign body without damage to nail Nephrolithiasis Urinary tract infection Home Medications ?Medication ?Instructions ?Recorded ?Last Taken ?Type sertraline 100 mg tablet 100 mg PO QHS mental health 08/30/17 03/20/21 History lisinopril 10 mg tablet 10 mg PO QHS blood pressure 12/14/17 03/20/21 History metformin 500 mg tablet,extended 500 mg PO DAILY 11/29/23 Unknown History release 24 hr hydrocodone-acetaminophen 5-325mg 1 tab PO Q6H PRN PRN Pain 3 days 02/11/24 Unknown Rx 5mg-325mg #10 TABLETS Allergy/AdvReac Type Severity Reaction Status Date / Time latex Allergy Swelling, Verified 02/11/24 10:07 itching Penicillins (PCN) Allergy other Verified 02/11/24 10:07 Sulfa (Sulfonamide Allergy Hives, Verified 02/11/24 10:07 Antibiotics) welts Family History Mother Hypertension Thyroid disorder Depression Rheumatoid arthritis Grandmother Parkinsons disease Surgical History History of adenoidectomy History of laparoscopic appendectomy (~09/03/21) History of History of lithotripsy History of tonsillectomy History of colonoscopy (~2015) History of hysterectomy (~2011) History of cholecystectomy (~2001) Social History household members: spouse and children housing: house number of children: 3 current occupational status: employed pets and animals: Yes Smoking Status: Never smoker alcohol intake: never substance use type: does not use caffeine: Yes (occasional) what type of physical activity do you participate in: none seatbelt use: always do you feel safe at home: Yes ROS ROS ED Constitutional Constitutional ED: Denies chills or fever(s) Eyes Eyes: Denies blurry vision or change in vision ENT ENT ED: Denies rhinorrhea or sore throat Cardiovascular Cardiovascular: Denies chest pain or palpitations Respiratory/Chest Respiratory/Chest: Denies cough or dyspnea Gastrointestinal Gastrointestinal: Denies nausea or vomiting Genitourinary Genitourinary ED: Denies dysuria or hematuria Musculoskeletal Musculoskeletal: Denies back pain or neck pain Integumentary Denies abscess or rash Neurologic Neurologic: Denies headache(s) or weakness Allergic/Immunologic Allergic/Immunologic ED: Denies mouth swelling or urticaria EXAM Physical Exam Const Vital Signs: 02/11/24 09:57 02/11/24 11:51 02/11/24 14:00 Temperature 97.2 F L 97.3 F L Temperature Source Temporal Pulse Rate 90 71 Respiratory Rate 14 16 Blood Pressure 165/101 H 168/97 H 144/79 H Blood Pressure Mean 122 120 100 Pulse Ox 98 94 Oxygen Delivery Method Room Air Positive well nourished and well developed General Appearance ED: well developed and NAD HEENT Reports moist mucous membranes Neck full ROM Extremity Extremity Narrative: There is tenderness over the lateral aspect of the left knee. There is tenderness along the joint line. There is no bony crepitance or step-off. There is no effusion noted. Range of motion was limited in all motions of the left knee secondary to pain. There is no laxity appreciated. Varus and valgus stress test were negative. Julia's test was negative. There is guarding on exam however. There is a strong pedal and posterior tibial pulse noted. Sensation was intact to light touch in all digits. Capillary refill was less than 2 seconds in all digits. Neuro oriented x3, CN's II-XII intact bilaterally, moves all extremities and no sensory deficits noted Sensorium / Orientation: alert Motor Exam: strength 5/5 throughout Psych mental status grossly normal MDM MDM MDM Narrative Medical decision making narrative: Differential diagnosis includes ligament sprain, meniscus tear, and occult fracture. X-rays of the left knee will be obtained to assess for occult fracture. Radiography Diagnostic Testing: Clinical Impression(s) from Imaging Studies Knee X-Ray 02/11/24 10:38 IMPRESSION: Small spur along the superior anterior aspect of the patella. Electronically Signed: Benjamin Thompson MD at 10:56 EDT , Lower Extremity MRI 02/11/24 11:38 IMPRESSION: Degeneration and tear of the posterior horn of the medial meniscus. Very mild degenerative change. Mild joint effusion of the left knee with mild anterior subcutaneous edema. Electronically Signed: Micaela Page MD at 13:15 EDT , X-rays of the left knee were obtained. There are 4 views. On my independent interpretation, there is a small spur along the superior anterior aspect of the patella. There is no acute fracture noted. There is a small joint effusion. Radiologist also interpreted the x-rays and agrees. MRI of the left knee was obtained. There is a tear of the posterior horn of the medial meniscus. There is a mild joint effusion. This was interpreted by the radiologist was also independently reviewed by myself. Treatment and Re-Evaluation Narrative: Patient was given a dose of Glentana here. Patient was feeling better on reeval uation. 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 I called MRI and they are able to perform an MRI today of her knee. Patient was advised of her findings. Patient was instructed to ice and elevate the left knee. Patient was given a knee immobilizer. Patient was given crutches. Patient was given a prescription for a short course of Glentana. Patient was instructed to follow-up with Dr. Gil as scheduled. Patient understood and was agreeable with the plan. All questions were answered. Discharge Plan Triage Chief Complaint: Lower Extremity Injury ED Provider: Jose Ramon Toney Dx/Rx/DC Orders Clinical Impression: Acute pain of left knee, Acute medial meniscus tear of left knee Instructions: ED Meniscal Injury Knee Poss, ED RICE Prescriptions: New hydrocodone-acetaminophen 5-325 mg tablet 1 tab PO Q6H PRN PRN (Reason: Pain) 3 Days Qty: 10 0RF No Action sertraline 100 MG tablet 100 mg PO QHS lisinopril 10 MG tablet 10 mg PO QHS metformin 500 mg tablet extended release 24 hr 500 mg PO DAILY Primary Care Provider: Silvana Ward NP Referrals: Marty Gil MD [Med Staff - Active Staff] - Keep Susy appointment Silvana Ward NP, [employer] MACHINE SET UP OPERATOR-C [Primary Care Provider] - 1-2 Weeks Print Language: Sudanese Disposition Disposition: Home, Self Care Discharge Date/Time: 02/11/24 14:11
--- NOTE | 2024-02-11 10:38 | RAD_ITS ---
STUDY: X-RAY - LEFT KNEE REASON FOR EXAM: Female, 48 years old. Pain. No known injury. TECHNIQUE: 4 view(s) of the knee. COMPARISON: None. FINDINGS: Normal visualized distal femur. Normal visualized proximal tibia and fibula. Normal proximal tibiofibular articulation. Normal medial femorotibial compartment. Normal lateral femorotibial compartment. Normal patellofemoral articulation. Small spur along the anterior superior aspect of the patella. The soft tissue structures are unremarkable. RAD/Knee 4 or More Views IMPRESSION: Small spur along the superior anterior aspect of the patella. Electronically Signed: Benjamin Thompson MD at 10:56 EDT ,
[2024-02-11 11:00] VITALS: BMI 39.4; BMI 39.5
--- NOTE | 2024-02-11 11:38 | MRI_ITS ---
HISTORY: LT KNEE PAIN, UNABLE TO BEND, injury. TECHNIQUE: Multiplanar and multisequence MR images of the LEFT knee were obtained without contrast. 207 images. COMPARISON: CR same day. FINDINGS: BONE: No acute fracture or other significant bone marrow signal abnormality identified. Small degenerative subchondral cysts of the tibial plateau. JOINT: Mild joint effusion. MENISCI: Degenerative tear of the posterior horn of the medial meniscus. Lateral meniscus within normal limits in signal and morphology. TENDONS: Intact quadriceps and patellar tendon mechanism. LIGAMENTS: No tear of the anterior or posterior cruciate ligaments. Medial and lateral collateral ligaments also intact. CARTILAGE: Very mild medial compartment chondral thinning. OTHER SOFT TISSUES: No significant popliteal cyst. Anterior subcutaneous edema. MRI/Lower Ext Joint Only (Routine) IMPRESSION: Degeneration and tear of the posterior horn of the medial meniscus. Very mild degenerative change. Mild joint effusion of the left knee with mild anterior subcutaneous edema. Electronically Signed: Micaela Page MD at 13:15 EDT ,
[2024-02-11 11:51] VITALS: BP 168/97
[2024-02-11] MEDS: HYDROcodone Bitartrate/Apap 5/325 Tablet PO (11:52)
[2024-02-11 14:00] VITALS: BP 144/79; PULSE 71; RESP 16; TEMP 36.3; O2SAT 94
== END 2024-02-11 14:11 | disposition home or self-care (01) ==
PROVIDERS: Emergency Provider Emergency Medicine; PCP Registered Nurse; Visit Provider Emergency Medicine
DX: S83.242A Other tear of medial meniscus, current injury, left knee, initial encounter (principal); E11.9 Type 2 diabetes mellitus without complications; X58.XXXA Exposure to other specified factors, initial encounter; I10 Essential (primary) hypertension; Z79.899 Other long term (current) drug therapy; F41.9 Anxiety disorder, unspecified; F32.A Depression, unspecified; Z79.84 Long term (current) use of oral hypoglycemic drugs; Z90.49 Acquired absence of other specified parts of digestive tract; Z90.710 Acquired absence of both cervix and uterus
CPT/HCPCS: 73564; 73721; 99284

== ENCOUNTER 2024-03-30 07:30 | Outpatient (RCR) | payer OTHER, SELFPAY ==
--- NOTE | 2024-03-06 14:26 | HP.PTEVAL_ITS ---
Patient's Visit Information Visit Information Visit Information: CHRISTIN BABB is a 48 year old F referred to Physical Therapy by Dr. Marty Gil MD with a diagnosis of Meniscal Tear. Date of Evaluation: 03/06/24 Physical Therapist: Kaila Barbour DPT Visit Plan Frequency: 2x /Week Duration: 4 Weeks Plan: Focus on LE and core strength/stabilization- known meniscal tear- GENTLE HEP Given IE: quad set, TKE, SLR Subjective Subjective: Beginning of January- protecting elbows and using legs- a couple of days later she had a deep knee pain on the left leg. Wrapped it, iced it and she made an apt to see Dr. Gil- she was on her ladder and then she twisted her knee and her leg gave out and she went down. She was okay as long as she did not bend her knee. She went to work the next day and then went to the ER- she works in [employer]. She saw Dr. Gil who sent her to PT- she has a posterior medial meniscal tear. She wears a brace at all time except for when she is sleeping. It hyper extends. She had an injection- which did not really help with the pain. Worst: 5/10 Best: 3/10. The pain is located on the inside of the knee and reports it burning and achying. The pain does not radiate. No N/T in the toes. 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 Sleep: not disturbed- side sleeper- does put a pillow between her knees. She reports that the knee does not feel stable. PMHx/Meds: see list in chart. Objective Objective: Posture: fair throughout- can correct but does not maintain throughout Gait: slightly antalgic- poor heel/toe pattern HR/TR: able with UE A SLS: 15 sec with increase sway with reports of instability TKE: increases pain with WB Palpation: tender along medial joint line Girth: 6 above: left: 55.5 cm right: 58 cm Edema- none noted Strength: Core: fair, Hip: 4/5 throughout, Knee: Left: Flexion: 15 Extn: 24 Right: Flexion: 24 Extn: 54 Flex: HS: moderate, Gastroc: moderate Balance/Special Test Scores Lower Extremity Functional Score: 41 Goals Goal 1:: Patient will be I with HEP and progression Goal Time Frame: 4-6 Weeks Goal 2:: Patient will have equal quad girth Goal Time Frame: 4-6 Weeks Goal 3:: Patient will report 80% improvement Goal Time Frame: 4-6 Weeks Goal 4:: Patient will ambulate >150 feet with normalized gait pattern Goal Time Frame: 4-6 Weeks Rehabilitation Potential Physical Therapy Diagnosis: Patient presents with hypomobility of the left knee- she has decreased LE and core strength/stabilization, pain free ROM, flexibility, and muscular endurance leading to decreased stability of the knee and increased pain with ADL's. Rehabilitation Potential: Good Anticipated Interventions Patient/Client Instruction: Educate patient on: Benefits of Fitness Program Therapeutic Exercise to Include: Strength training, Endurance training, Agility training, Body mechanics, Postural training, Flexibilty training, Gait and locomotor training, Neuromotor development, Dynamic Lumbar Stabilization and Scapular Strength/Stabilization For the Purpose of:: To improve muscle performance and motor function TENS: Yes Cryotherapy (ice pack, ice massage): Yes Thermo therapy (hot pack): Yes Text: Thank you for the opportunity to evaluate your patient. For Medicare and Medicare HMO plans, please review the plan of care and approve it. It will need to be FAXED BACK to us at [phone] for Medicare purposes. For Medicare only, by signing this I certify the plan of care. Please let me know if there are questions or concerns regarding this plan of care. Physician Signature: Date:
--- NOTE | 2024-03-30 08:22 | HP.PTDCSUM ---
Discharge Summary D/C summary: It has been my pleasure to treat CHRISTIN BABB referred by Dr. Marty Gil MD, with the diagnosis of Meniscal Tear for a total of 6 visit(s). Discharge Date: Please see the following information for a summary of their discharge status. Subjective Subjective: Patient reports that she has better motion but its still a deep achy and its going to give out. She is unstable when she goes from sitting to standing- has to keep it partially bent until she feels confident that its really to bear weight on it. She has pain- Worst: 04/08- 3-12/07 today. Pain L knee: Pain Intensity (Out of 10): 0 L calf: Pain Intensity (Out of 10): 4 Overall Improvement % Improvement: 60 Objective Objective/Function: Posture: fair throughout- can correct but does not maintain throughout Gait: slightly antalgic- poor heel/toe pattern HR/TR: able with UE A SLS: 15 sec with increase sway with reports of instability TKE: increases pain with WB Girth: 6 above: left: 55 cm right: 58 cm Edema- none noted Strength: Core: fair, Hip: 4+/5 throughout, Knee: Left: Flexion: 19 Extn: 35 Right: Flexion: 24 Extn: 54 Flex: HS: moderate, Gastroc: moderate Goals Goal 1:: Patient will be I with HEP and progression Goal Progress: Goal Met Goal 2:: Patient will have equal quad girth Goal Progress: Not Progressing Goal 3:: Patient will report 80% improvement Goal 4:: Patient will ambulate >150 feet with normalized gait pattern Goal Progress: Not Progressing Plan Plan: 03/30/24: Discharge to I home exercise program IE: Focus on LE and core strength/stabilization- known meniscal tear- GENTLE D/C Information d/c sentence: If there are questions or concerns regarding this patient's physical therapy, please feel free to call me at [phone]. Thank you for the referral of this patient. Sincerely, Kaila Barbour, DPT Balance/Gait/Functional tests Balance/Special Test Scores Lower Extremity Functional Score: 52 Improvement % Improvement: 60
== END 2024-03-30 19:00 | disposition home or self-care (01) ==
LOC: PT 07:30
PROVIDERS: PCP Registered Nurse; Referring Provider Orthopaedic Surgery Sports Medicine; Visit Provider Orthopaedic Surgery Sports Medicine
DX: S83.242D Other tear of medial meniscus, current injury, left knee, subsequent encounter (principal); M25.562 Pain in left knee
CPT/HCPCS: 97110; 97162; 97530

== ENCOUNTER 2024-04-12 07:29 | Outpatient (CLI) | payer OTHER, SELFPAY ==
--- NOTE | 2024-04-12 09:32 | BI_ITS ---
MAMMOGRAPHY - BILATERAL DIAGNOSTIC REASON FOR EXAM: Female, 49 years old. Breast lump at the 12:00 position of the left breast. PERTINENT HISTORY: Non-contributory. TECHNIQUE: Digital bilateral breast massimo (3D mammographic acquisition) in the CC and MLO projections. 2-D mediolateral oblique (MLO) and craniocaudad (CC) views of both breasts were obtained. CAD: Full Field Digital Mammography with Computer Added Detection was performed. COMPARISON: Comparison is made with prior study dated June 22, 2023 and June 19, 2022. FINDINGS: Breast Composition: There are scattered areas of fibroglandular density. There are no dominant masses or suspicious calcifications. No other significant abnormalities are identified. There has been no significant change since the prior study. BI/DIAG MAMM W/CAD, BILAT IMPRESSION: Stable bilateral diagnostic mammogram. With the patient''s history of a palpable lump at the 12:00 position of the left breast, correlation with ultrasound is recommended. ASSESSMENT CATEGORY: BIRADS Category 0: Incomplete. Need additional imaging evaluation. A letter regarding these results will be sent to the patient by the facility within 30 days. Approximately 10% of breast cancers are not detected by mammography. A normal mammogram should not delay biopsy of a clinically suspicious abnormality. Electronically Signed: Benjamin Thompson MD at 14:44 EDT ,
--- NOTE | 2024-04-12 09:32 | US_ITS ---
STUDY: ULTRASOUND BREAST - LEFT REASON FOR EXAM: Female, 49 years old. Palpable lump left breast. TECHNIQUE: Axial and longitudinal images of the LEFT breast were performed with a high resolution ultrasound transducer. # OF IMAGES: 43 COMPARISON: Comparison is made with prior study done earlier today. FINDINGS: LEFT Breast: The upper outer quadrant of the left breast was examined with ultrasound. No sonographic abnormality is seen. US/Breast Limited Unilateral IMPRESSION: No sonographic abnormality is seen. ASSESSMENT CATEGORY: BIRADS Category 1: Negative. A letter regarding these results will be sent to the patient by the facility within 30 days. Electronically Signed: Benjamin Thompson MD at 14:45 EDT ,
== END 2024-04-12 23:59 | disposition home or self-care (01) ==
PROVIDERS: PCP Registered Nurse; Referring Provider Registered Nurse; Visit Provider Registered Nurse
DX: N63.20 Unspecified lump in the left breast, unspecified quadrant (principal)
CPT/HCPCS: 76642; 77062; 77066; G0279

== ENCOUNTER → 2024-04-26 | Outpatient (CLI) | payer OTHER, SELFPAY ==
[2024-04-26 09:15] LABS: Erythrocyte Sedimentation Rate 10 mm/hr (0-30)
[2024-04-26 09:35] LABS: CRP 5.03 mg/L (0.0-3.0); Ferritin 248 ng/mL (8-252); Iron 68 ug/dL (50-170); Iron Binding Capacity,Total 328 ug/dL (250-450)
[2024-04-26 10:03] LABS: HIV - WCH Non-Reactive (Nonreactive)
[2024-04-26 10:14] LABS: Hemoglobin A1c 6.4 % (3.8-5.6)
[2024-04-28 08:12] LABS: Albumin 3.9 g/dL (2.9-4.4); Alpha-1-Globulins 0.2 g/dL (0.0-0.4); Alpha-2-Globulins 0.7 g/dL (0.4-1.0); Angiotensin Convert Enzyme < 15 U/L (14-82); Anti-Smooth Muscle ABS 15 Units (0-19); Ceruloplasmin 23.9 mg/dL (19.0-39.0); Copper, Serum or Plasma 95 ug/dL (80-158); Cytoplasmic Ab (C-ANCA) <1:20 titer (Neg:<1:20); Endomysial Antibody IgA Negative (Negative); Gamma Globulin 0.8 g/dL (0.4-1.8); HEPATITIS B SURFACE AG Negative (Negative); Hep C Antibodies Non Reactive (Non Reactive); Hepatitis A IgM Antibody Negative (Negative); Hepatitis B Core AB IgM Negative (Negative); IgG, Quant 769 mg/dL (586-1602); Immunoglobulin A 257 mg/dL (87-352); Immunoglobulin G, Subclass 1 425 mg/dL (248-810); Immunoglobulin G, Subclass 2 224 mg/dL (130-555); Immunoglobulin G, Subclass 3 39 mg/dL (15-102); Immunoglobulin G, Subclass 4 26 mg/dL (2-96); Immunoglobulin M 179 mg/dL (26-217); PROEL- TOTAL PROTEIN 6.8 g/dL (6.0-8.5); Perinuclear Ab (P-ANCA) <1:20 titer (Neg:<1:20); Transferrin 277 mg/dL (192-364); t-Transglutaminase IgA <2 U/mL (0-3)
[2024-05-03 05:07] LABS: Anti-Centromere B Ab <0.2 AI (0.0-0.9); Anti-Chromatin <0.2 AI (0.0-0.9); Anti-Jo <0.2 AI (0.0-0.9); Anti-Mitochondrial AB <20.0 Units (0.0-20.0); Anti-Scleroderma-70 AB <0.2 AI (0.0-0.9); Anti-dsDNA Ab <1 IU/mL (0-9); Beef <0.10 kU/L (Class 0); Chocolate <0.10 kU/L (Class 0); Codfish <0.10 kU/L (Class 0); Corn 0.13 kU/L (Class 0/I); Egg, Whole <0.10 kU/L (Class 0); Milk (Cow) 0.21 kU/L (Class 0/I); Mussels <0.10 kU/L (Class 0); Peanut 0.11 kU/L (Class 0/I); Pork <0.10 kU/L (Class 0); RNP Ab <0.2 AI (0.0-0.9); SJOGREN'S Anti-SS-A test < 0.2 AI (0.0-0.9); SJOGREN'S Anti-SS-B test < 0.2 AI (0.0-0.9); Salmon <0.10 kU/L (Class 0); Shrimp <0.10 kU/L (Class 0); Smith Ab <0.2 AI (0.0-0.9); Soybean <0.10 kU/L (Class 0); Tuna <0.10 kU/L (Class 0); Wheat <0.10 kU/L (Class 0)
== END | disposition home or self-care (01) ==
PROVIDERS: PCP Registered Nurse; Referring Provider Internal Medicine Gastroenterology; Visit Provider Internal Medicine Gastroenterology
DX: R53.83 Other fatigue (principal); R73.03 Prediabetes; K76.0 Fatty (change of) liver, not elsewhere classified
CPT/HCPCS: 36415; 80074; 82164; 82390; 82525; 82728; 82784; 82787; 83036; 83516; 83540; 83550; 84165; 84443; 84466; 85652; 86003; 86005; 86140; 86225; 86235; 86255; 86256; 86334; 86703

== ENCOUNTER → 2024-05-23 | Outpatient (CLI) | payer OTHER, SELFPAY ==
--- NOTE | 2024-05-23 07:29 | US_ITS ---
STUDY: ABDOMINAL ULTRASOUND - RIGHT UPPER QUADRANT; ELASTOGRAPHY REASON FOR VISIT: Female, 49 years old. Fatty infiltration of the liver. TECHNIQUE: Ultrasound evaluation of the right upper quadrant was performed with real-time and static reynolds-scale imaging. Point quantification shear wave elastography was performed ([employer]). TECHNICAL QUALITY: Adequate. COMPARISON: Comparison is made with prior study dated June 22, 2023. FINDINGS: Liver: The liver is enlarged and measures 20.7 cm. There is increased echogenicity consistent with fatty infiltration. The bile ducts are within normal limits. There is hepatic color flow. The direction of portal flow is hepatopetal. There is no demonstrated mass lesion. Median liver stiffness measured 8 kPa. Gallbladder: The patient is status post cholecystectomy. Common Bile Duct (C.B.D.): The common bile duct measures 5 mm. Pancreas: There is normal echogenicity of the visualized pancreas. There is no demonstrated pancreatic mass or cyst. Right Kidney: Normal size of the right kidney. The right kidney measures 12 cm x 5 cm x 5.2 cm. Normal renal cortex. The right cortex measures 1.4 cm. There is no demonstrated renal mass or cyst. There is no right hydronephrosis. US/ABD Limited w/ Elastography IMPRESSION: 1. Liver stiffness measures 8 kPa compatible with F2-F3 (Mild to moderate liver fibrosis) Metavir score. Electronically Signed: Benjamin Thompson MD at 13:08 EDT ,
== END | disposition home or self-care (01) ==
LOC: US 07:28
PROVIDERS: PCP Registered Nurse; Referring Provider Internal Medicine Gastroenterology; Visit Provider Internal Medicine Gastroenterology
DX: K76.0 Fatty (change of) liver, not elsewhere classified (principal)
CPT/HCPCS: 76705; 76981

== ENCOUNTER → 2024-10-19 | Outpatient (CLI) | payer OTHER, SELFPAY ==
--- NOTE | 2024-10-19 18:15 | MRI_ITS ---
PROCEDURE: MRI left knee without IV contrast REASON FOR EXAM: Pain, meniscal tear TECHNIQUE: Multisequence multiplanar MR images of the left knee were obtained without the administration of intravenous contrast. Imaging sequences were performed to best displaced suspected pathology. COMPARISON: None. FINDINGS Complex, near complete tear at the posterior root of the medial meniscus. Remaining portions of the medial meniscus are intact. Intact lateral meniscus. Anterior and posterior cruciate ligaments are intact. Extensor mechanism is intact. Medial collateral ligament is intact. Fluid within the medial collateral ligament bursa. Lateral collateral ligament complex is intact. Semimembranosus and pes tendons are intact. Partial-thickness chondral fissures along the peripheral aspect of the medial patellar facet. Trochlear cartilage is intact. Mild chondral fibrillation and thinning along the middle third of the medial femoral condyle. Lateral compartment cartilage is intact. Small joint effusion without synovitis. Negative for fracture or marrow replacement. No sizable Salinas's cyst. Small ganglion along the popliteus myotendinous junction containing at least 1 small chondral body. MRI/Lower Ext Joint Only (Routine) IMPRESSION: 1. Near-complete tear at the posterior root of the medial meniscus. 2. Intact cruciates and collaterals. 3. Mild medial and patellofemoral compartment chondrosis as above. 4. Small joint effusion. 5. Trace fluid in the medial collateral ligament bursa. 6. Small ganglion along the popliteus myotendinous junction. Reading Location: [facility]
== END | disposition home or self-care (01) ==
LOC: MRI 16:01
PROVIDERS: PCP Registered Nurse; Referring Provider Student in an Organized Health Care Education/Training Program; Visit Provider Student in an Organized Health Care Education/Training Program
DX: S83.242D Other tear of medial meniscus, current injury, left knee, subsequent encounter (principal); S83.412D Sprain of medial collateral ligament of left knee, subsequent encounter
CPT/HCPCS: 73721

== ENCOUNTER 2024-10-31 08:30 | Outpatient (RCR) | payer OTHER, SELFPAY ==
--- NOTE | 2024-07-11 13:10 | HP.OTEVAL_ITS ---
Patient's Visit Information Visit Information Visit Information: CHRISTIN BABB is a 49 year old F, referred to Occupational Therapy by Dr. Marty Gil MD, with a diagnosis of B Lateral Epicondylitis. Date of Evaluation: 07/11/24 Occupational Therapist: Irma Victor Subjective Subjective: This 49 year old female arrives with dx of B lateral epicondylitis. Per pt they both bother her however L is always worse. pt been dealing with issue since 2021. did receive therapy in the past which helped and has also received injection to L and R in past. Pt states she recently began to have numbness of IF on L hand which she described as a buzz. pt wears tennis elbow brace when first flared however has taken it off due to numbness in finger. does have B wrist splints however has not been wearing them. pt is R hand dominant. pt has been affected in the completion of daily tasks as a result of arms and IF. Pain L arm: Current Pain Intensity: 1 ROM Elbow: wfl Forearm: L supination 80 R 100 Wrist: L 55/50 R 65/50 Opposition: wfl ROM Comments: able to make full composite fist Strength Starter Cup Powder Mixer: L 45# R 60# Lateral Pinch: L 5# R 8# Tripod Pinch: L 3# R 8# Strength Comments: provoking position L 15# provoking position R 60# pt is R hand dominant Sensation Sensation Comments: L hand IF above knuckle at 3.61 L hand IF below knuckle at 3.22 loss of light touch sensation Quick DASH-Disab of Arm,Shoulder& Hand Quick DASH Score: 25.0000 Goals Goal:ROM equal to unaffected hand: Yes Goal:Starter Cup Powder Mixer/Pinch strength at least 75% of unaffected hand: Yes Goal:No pain with affected hand use: Yes Goal:Full use of affected hand in daily activities including work: Yes Goal:Improvement in sensation documented by [place] monofiliaments: Yes Other Goal: pt will improve quick dash score by 5 points or more (25) in order to improve overall functional use of L hand pt will verbalize 100% accuracy in proper bracing and joint protection techniques by third session in order to decrease pain and improve overall functional use of L hand Rehabilitation General Assessment: This 49 year old female arrives with dx of B lateral epicondylitis. pt also with complaints of numbness lack of sensation along L IF lateral portion of finger at knuckle to tip of finger. Pt presents with decreased ROM at wrist into extension as well as decreased strength of L UE. pt reports dull ache pain throughout the day impacting daily function. pt would benefit from OT services 1-2x a week for 4-6 weeks. Rehabilitation Potential: Good Anticipated Interventions Anticipated Interventions: A/AAROM/PROM, Strengthening, Triggerpoint Release, Modalities, Orthoses, Joint Protection/Energy Conservation, Education re assistive Equipment, Education re Diagnosis and Home Program Visit Plan Frequency: 1-2x /Week Duration: 4-6 Weeks General Plan: AROM/AAROM/PROM trigger point release bracing love tape stretch eccentric exercise once ready TEXT: Thank you for the opportunity to evaluate your patient. For Medicare and Medicare HMO plans, please review the plan of care and approve it. It will need to be FAXED BACK to us at [phone] for Medicare purposes. Please let me know if there are questions or concerns regarding this plan of care. Physician Signature: Date:
--- NOTE | 2024-11-01 07:14 | HP.OTDCSUM ---
Discharge Summary D/C Summary: It has been my pleasure to treat CHRISTIN BABB under orders from Dr. Marty Gil MD, for the diagnosis of B Lateral Epicondylitis for a total of 19 visit(s). Please see the following information for a summary of their discharge status. 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 with HEP of eccentric pt has made adj for work ergonomics and brace as needed. pt agrees with d/c Goals Patient Goals: Regain Strength, Decrease Pain, Decrease Swelling/Stiffness, Use Hand/Wrist/Arm Normally Again, Decrease Tingling/Numbness, Increase ROM, Be More Independent in ADLS, Resume Former Household Responsibilities (Cooking,Cleaning,Yard, etc.) and Resume Hobbies Goal:ROM equal to unaffected hand: Yes Goal:Cheese Cutter/Pinch strength at least 75% of unaffected hand: Yes Goal:No pain with affected hand use: Yes Goal:Full use of affected hand in daily activities including work: Yes Goal:Improvement in sensation documented by [place] monofiliaments: Yes Other Goal: pt will improve quick dash score by 5 points or more (25) in order to improve overall functional use of L hand pt will verbalize 100% accuracy in proper bracing and joint protection techniques by third session in order to decrease pain and improve overall functional use of L hand Plan Plan: pain management stretch strengthen D/C Information Discharge Comments: pt had conservative tx for left latera epi- with fair success. pt will cont with HEP. pt agrees with D/C. d/c sentence: If there are questions or concerns regarding this patient's occupational therapy, please fell free to call me at [phone]. Thank you for the referral of this patient. Sincerely, Mariaelena Palacio, OTR/L, CHT
== END 2024-10-31 19:00 | disposition home or self-care (01) ==
LOC: OT 08:30
PROVIDERS: PCP Registered Nurse; Visit Provider Orthopaedic Surgery Sports Medicine
DX: M77.11 Lateral epicondylitis, right elbow (principal); M77.12 Lateral epicondylitis, left elbow
CPT/HCPCS: 97035; 97110; 97140; 97165; 97530

== ENCOUNTER → 2024-12-18 | Outpatient (CLI) | payer OTHER, SELFPAY | END | disposition home or self-care (01) | LOC: LABSPEC 11:22 | PROVIDERS: PCP Registered Nurse; Visit Provider Nurse Practitioner Family | DX: Z00.00 Encounter for general adult medical examination without abnormal findings (principal) ==

== ENCOUNTER → 2025-03-08 | Outpatient (CLI) | payer OTHER, SELFPAY | END | disposition home or self-care (01) | PROVIDERS: PCP Registered Nurse; Referring Provider Student in an Organized Health Care Education/Training Program; Visit Provider Student in an Organized Health Care Education/Training Program | DX: Z01.818 Encounter for other preprocedural examination (principal) | CPT/HCPCS: 93005 ==

== ENCOUNTER 2025-04-05 08:48 | Day surgery (SDC) | payer OTHER, SELFPAY ==
--- NOTE | 2025-03-07 08:59 | PAT.ANE_ITS ---
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 When Was Last Pacemaker Check QUESTION #4 FULL TEXT: You/Your Family Experience fever (hyperthermia) with Anesthesia Last Oral Intake Last Oral intake: Last Oral Intake NPO since Meds taken in AM with sips of water? Meds patient instructed to take am of surgery PONV PONV - watch and clock repair clerk: PONV - watch and clock repair clerk Female Yes 03/07/25 08:28 HX of Motion Sickness Yes 03/07/25 08:28 HX of N/V After Surgery Yes 03/07/25 08:28 Non-Smoker Yes 03/07/25 08:28 Duration of Surgery greater Yes 03/07/25 08:28 than 60 minutes Number of Risk Factors 5 03/07/25 08:28 PONV Score Severe Risk 03/07/25 08:28 Height & Weight Height & Weight: Anesthesia: Height & Weight Height 5 ft 6 in 12/22/24 14:13 Respiratory Assessment Respiratory Assessment - watch and clock repair clerk: Respiratory Tract Infection Hx - watch and clock repair clerk Hx Respiratory Tract Infection No 03/07/25 08:28 STOP Sleep Apnea STOP Sleep Apnea - watch and clock repair clerk: STOP Sleep Apnea - watch and clock repair clerk Hx Hypertension Yes: CONTROLLED WITH MED 03/07/25 08:28 Hx Sleep Apnea No 03/07/25 08:28 CPAP No 03/07/25 08:28 BIPAP Do you snore loudly (louder No 03/07/25 08:28 than talking or can be heard Do you often feel tired/ No 03/07/25 08:28 fatigued/ sleepy during daytime? Has anyone observed you stop No 03/07/25 08:28 breathing during sleep? STOP Results Negative 03/07/25 08:28 QUESTION #5 FULL TEXT : Do you snore loudly (louder than talking or can be heard through closed doors)? 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 Specify any problems Hx of Preganancy in last 3 No 03/07/25 08:28 Months Nurse Filling Out Transfusion VCHRISTIN 03/07/25 08:28 & Questions: Date: 03/07/25 03/07/25 08:28 Time: 08:29 03/07/25 08:28 Patient unable to answer at this time (ie. confused, unrespo /Reproduction History /Reproductive History - watch and clock repair clerk: /Reproductive Hx- watch and clock repair clerk Hx Now No 03/07/25 08:28 Gestational Age (in weeks): EDC: Hx Hx Para Hx Section SAB No 03/07/25 08:28 [facility] Medical History (Updated 03/07/25 @ 08:27 by Mavis Elliott) Normal Holter exam Anal fissure Effusion, left knee Diabetes Fatty liver Restless legs Shortness of breath on exertion Leg cramps Cardiology follow-up encounter History of echocardiogram History of stress test Nonrheumatic mitral valve disorder Fatty liver Essential hypertension Encounter for screening for COVID-19 Acute appendicitis Right lower quadrant pain Wears glasses Depression Anxiety Back pain Non-smoker History of edema Hypertension Labral tear of right hip joint Right hip pain Segmental and somatic dysfunction of pelvic region Segmental and somatic dysfunction of lumbar region Segmental and somatic dysfunction of thoracic region Segmental and somatic dysfunction of cervical region COVID-19 History of colonic polyps Back pain HTN (hypertension) Hemorrhoid Laceration of right thumb without foreign body without damage to nail Nephrolithiasis Urinary tract infection Home Medications ?Medication ?Instructions ?Recorded ?Last Taken ?Type sertraline 100 mg tablet 100 mg PO QHS mental health 08/30/17 03/20/21 History lisinopril 10 mg tablet 10 mg PO QHS blood pressure 12/14/17 03/20/21 History metformin 500 mg tablet,extended 500 mg PO DAILY 11/28 Unknown History release 24 hr vitamin E (dl, acetate) 180 mg 180 mg PO BID #60 caps 06/06/24 Unknown Rx (400 unit) capsule Diltiazem 2% / Lidocaine 5% #1 ea 11/09/24 Unknown Rx ointment (compound) (Diltiazem 2%/Lidocaine 5% ointment (compound)) Hydrocortisone 2.5%/lidocaine 5% #42 ea 11/10/24 Unkno wn Rx suppository (cmpd) cholecalciferol (vitamin D3) 125 125 mcg PO DAILY 05/24 Unknown History mcg (5,000 unit) tablet (Vitamin D3) magnesium 250 mg tablet 250 mg PO DAILY 03/07/25 Unk nown History Allergy/AdvReac Type Severity Reaction Status Date / Time latex Allergy Swelling, Verified 03/07/25 08:21 itching Penicillins (PCN) Allergy other Verified 03/07/25 08:21 Sulfa (Sulfonamide Allergy Hives, Verified 03/07/25 08:21 Antibiotics) welts Family History Mother Hypertension Thyroid disorder Depression Rheumatoid arthritis Grandmother Parkinsons disease Surgical History (Updated 03/07/25 @ 08:27 by Mavis Elliott) Hx of cystoscopy History of adenoidectomy History of laparoscopic appendectomy (~09/03/21) History of History of lithotripsy History of tonsillectomy History of colonoscopy (~2015) History of hysterectomy (~2011) History of cholecystectomy (~2001) Social History household members: spouse and children housing: house number of children: 3 current occupational status: employed pets and animals: Yes Smoking Status: Never smoker alcohol intake: never substance use type: does not use caffeine: Yes (occasional) what type of physical activity do you participate in: none seatbelt use: always do you feel safe at home: Yes Audit: Pertinent Findings Pertinent Findings EKG Perinent findings: March 2022 normal sinus rhythm Stress test pertinent findings: 08/26/2022. METS 10 Echo (EF%) pertinent findings: Ejection fraction 65% Consult pertinent findings: Cardiology visit July 2022. Previous echo with ejection fraction 65%. EKG sinus rhythm. Patient has history of palpitations with ectopy PAC and PVC. Stress test done METS 10. 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
[2025-04-05] VITALS (14 sets, daily range): BP systolic 101–134; BP diastolic 57–84; PULSE 62–82; RESP 14–18; TEMP 36–36.5; O2SAT 90–98; BMI 39.1
--- NOTE | 2025-04-05 09:22 | PCM.PRE.AN2 ---
ASA Classification* ASA Classification ASA Classification: 2 Assessment & Plan Anesthesia* Anesthesia Assessment Anesthesia Assessment: Discussed sedation and/or anesthesia options, risks, benefits, and alternatives with patient/parents/legal guardian/POA. Questions invited. The patient/parents/legal guardian/POA seems to understand and agrees to proceed with anesthesia plan. Reviewed the physical assessment, medical history, allergy history and patient home medications list prior to surgery/procedure/anesthetic and documented any changes. Performed airway and anesthesia risk assessments. Anesthesia Type Anesthesia Type: General Anesthesia Focused Assessment* Airway Assessment Mouth opens: >3 cm Mallampati Score: II Labs Anesthesia Preop lab: CBC WBC 5.9 K/mm3 (4.4-11.0) 03/09/25 08:42 03/09/25 RBC 5.17 M/mm3 (4.2-5.4) 03/09/25 08:42 03/09/25 Hgb 15.0 g/dL (12.0-15.0) 03/09/25 08:42 03/09/25 Hct 44.1 % (37-47) 03/09/25 08:42 03/09/25 Plt Count 243 K/mm3 (150-450) 03/09/25 08:42 03/09/25 CHEMISTRY Potassium 4.5 mmol/L (3.3-5.1) 03/09/25 08:42 03/09/25 Sodium 139 mmol/L (133-145) 03/09/25 08:42 03/09/25 Magnesium 1.7 mg/dL (1.6-2.6) 03/24/22 15:40 03/24/22 Phosphorus 3.8 mg/dL (2.7-4.5) 03/09/25 08:42 03/09/25 BUN 18 mg/dL (4-19) 03/09/25 08:42 03/09/25 Creatinine 0.79 mg/dL (0.70-1.20) 03/09/25 08:42 03/09/25 Glucose 162 mg/dL (70-99) H 03/09/25 08:42 03/09/25 TSH 1.400 uIU/mL (0.358-3.740) 04/26/24 08:27 04/26/24 COAG PT 13.4 SECONDS (11.7-14.9) 08/04/19 13:54 08/04/19 Pre-Assessment Diagnosis/Proposed Procedure Planned Operative Procedure(s): (L) LEFT KNEE ARTHROSCOPIC MEDIAL MENISCAL ROOT REPAIR 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 When Was Last Pacemaker Check QUESTION #4 FULL TEXT: You/Your Family Experience fever (hyperthermia) with Anesthesia Last Oral Intake Last Oral intake: Last Oral Intake NPO since Meds taken in AM with sips of water? Meds patient instructed to take am of surgery PONV PONV - job training supervisor: PONV - job training supervisor Female Yes 03/07/25 08:28 HX of Motion Sickness Yes 03/07/25 08:28 HX of N/V After Surgery Yes 03/07/25 08:28 Non-Smoker Yes 03/07/25 08:28 Duration of Surgery greater Yes 03/07/25 08:28 than 60 minutes Number of Risk Factors 5 03/07/25 08:28 PONV Score Severe Risk 03/07/25 08:28 Height & Weight Height & Weight: Anesthesia: Height & Weight Height 5 ft 6 in 12/22/24 14:13 Respiratory Assessment Respiratory Assessment - job training supervisor: Respiratory Tract Infection Hx - job training supervisor Hx Respiratory Tract Infection No 03/07/25 08:28 STOP Sleep Apnea STOP Sleep Apnea - job training supervisor: STOP Sleep Apnea - job training supervisor Hx Hypertension Yes: CONTROLLED WITH MED 03/07/25 08:28 Hx Sleep Apnea No 03/07/25 08:28 CPAP No 03/07/25 08:28 BIPAP Do you snore loudly (louder No 03/07/25 08:28 than talking or can be heard Do you often feel tired/ No 03/07/25 08:28 fatigued/ sleepy during daytime? Has anyone observed you stop No 03/07/25 08:28 breathing during sleep? STOP Results Negative 03/07/25 08:28 QUESTION #5 FULL TEXT : Do you snore loudly (louder than talking or can be heard through closed doors)? 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 Specify any problems Hx of Preganancy in last 3 No 03/07/25 08:28 Months Nurse Filling Out Transfusion VCHRISTIN 03/07/25 08:28 & Questions: Date: 03/07/25 03/07/25 08:28 Time: 08:29 03/07/25 08:28 Patient unable to answer at this time (ie. confused, unrespo /Reproduction History /Reproductive History - job training supervisor: /Reproductive Hx- job training supervisor Hx Now No 03/07/25 08:28 Gestational Age (in weeks): EDC: Hx Hx Para Hx Section SAB No 03/07/25 08:28 Active Medications Active Medications: Current Medications Generic Name Dose Route Start Last Admin Trade Name Freq PRN Reason Stop Dose Admin Cefazolin Sodium 2 gm/ Sodium 110 mls @ 200 mls/hr 04/05/25 10:15 Chloride IV 04/05/25 10:47 INTRAOP ONE Lactated Ringer's 1,000 mls @ 15 mls/hr 04/05/25 09:00 IV .Q48H HAROON PFSH Medical History (Updated 03/07/25 @ 08:27 by Mavis Elliott) Normal Holter exam Anal fissure Effusion, left knee Diabetes Fatty liver Restless legs Shortness of breath on exertion Leg cramps Cardiology follow-up encounter History of echocardiogram History of stress test Nonrheumatic mitral valve disorder Fatty liver Essential hypertension Encounter for screening for COVID-19 Acute appendicitis Right lower quadrant pain Wears glasses Depression Anxiety Back pain Non-smoker History of edema Hypertension Labral tear of right hip joint Right hip pain Segmental and somatic dysfunction of pelvic region Segmental and somatic dysfunction of lumbar region Segmental and somatic dysfunction of thoracic region Segmental and somatic dysfunction of cervical region COVID-19 History of colonic polyps Back pain HTN (hypertension) Hemorrhoid Laceration of right thumb without foreign body without damage to nail Nephrolithiasis Urinary tract infection Home Medications ?Medication ?Instructions ?Recorded ?Last Taken ?Type sertraline 100 mg tablet 100 mg PO QHS mental health 08/30/17 03/20/21 History lisinopril 10 mg tablet 10 mg PO QHS blood pressure 12/14/17 03/20/21 History metformin 500 mg tablet,extended 500 mg PO DAILY 11/29/23 Unknown History release 24 hr vitamin E (dl, acetate) 180 mg 180 mg PO BID #60 caps 06/06/24 Unknown Rx (400 unit) capsule Diltiazem 2% / Lidocaine 5% #1 ea 11/09/24 Unknown Rx ointment (compound) (Diltiazem 2%/Lidocaine 5% ointment (compound)) Hydrocortisone 2.5%/lidocaine 5% #42 ea 11/10/24 Unknown Rx suppository (cmpd) cholecalciferol (vitamin D3) 125 125 mcg PO DAILY 03/07/25 Unknown History mcg (5,000 unit) tablet (Vitamin D3) magnesium 250 mg tablet 250 mg PO DAILY 03/07/25 Unknown History Allergy/AdvReac Type Severity Reaction Status Date / Time latex Allergy Swelling, Verified 04/05/25 09:19 itching Penicillins (PCN) Allergy other Verified 04/05/25 09:19 Sulfa (Sulfonamide Allergy Hives, Verified 04/05/25 09:19 Antibiotics) welts Family History Mother Hypertension Thyroid disorder Depression Rheumatoid arthritis Grandmother Parkinsons disease Surgical History (Updated 03/07/25 @ 08:27 by Mavis Elliott) Hx of cystoscopy History of adenoidectomy History of laparoscopic appendectomy (~09/03/21) History of History of lithotripsy History of tonsillectomy History of colonoscopy (~2015) History of hysterectomy (~2011) History of cholecystectomy (~2001) Social History household members: spouse and children housing: house number of children: 3 current occupational status: employed pets and animals: Yes Smoking Status: Never smoker alcohol intake: never substance use type: does not use caffeine: Yes (occasional) what type of physical activity do you participate in: none seatbelt use: always do you feel safe at home: Yes Review of Systems (Anesthesia) ROS Narrative System reviewed and no additional complaints, except as documented.
[2025-04-05] MEDS: Lactated Ringers 1,000 ML 15 ML IV ×2 (09:38→12:14)
[2025-04-05] MEDS: Midazolam 2 MG/2 ML Syringe IV (09:52)
[2025-04-05] MEDS: Cefazolin 1 GM/5 ML Vial 2 GM IV (10:15)
[2025-04-05] MEDS: Epinephrine (1 mg/ml) 1 MG/ML VIAL (10:43)
[2025-04-05] MEDS: fentaNYL 100 MCG/2 ML Ampul IV (10:51)
[2025-04-05] MEDS: Ketorolac 30 MG/ML Syringe IV (11:08)
--- NOTE | 2025-04-05 11:50 | PCM.POST.ANE ---
Anesthesia: Postop Eval I Current Vital Signs Temperature: 97.6 F Pulse Rate: 82 Blood Pressure: 131/84 Respiratory Rate: 16 Pulse Ox: 96 Oxygen Delivery Method: Room Air Assessment Airway patent: Yes Spontaneous unlabored respirations: Yes Mental status: Awake and Calm nausea: No Vomiting: No Anesthesia Complication: No Fluid Hydration Crystalloid volume administer (ml): 800 Total IV fluid infused: 800 Progress Note Anesthesia document: Postop Eval 1 completed: Yes
--- NOTE | 2025-04-05 18:24 | OP.PCM_ITS ---
Operative Report (Standard) Operative Information Date of Procedure: 04/05/25 Pre-Operative Diagnosis: Left knee medial meniscal root tear Post-Operative Diagnosis: Left knee medial meniscal root tear Surgery/Procedure Performed: Left knee medial meniscal arthroscopic repair alarm signaler: Yes Motion Picture Critic: Harriet Larry Tasks completed by biology laboratory assistant: Opening & closing and Implanting device Type of Anesthesia: General/Regional RN Documented Start/Stop Times: Operation Date: 04/05/25 10:15 Case Time Into Pre-Op 04/05/25 08:59 Anesthesia Start 04/05/25 10:15 Into Room 04/05/25 10:15 Procedure Start 04/05/25 10:43 Procedure End 04/05/25 11:22 Anesthesia End 04/05/25 11:25 Out of Room 04/05/25 11:25 Into Recovery 04/05/25 11:26 Into Phase II Recovery 04/05/25 13:18 Out of Recovery 04/05/25 13:18 Out of Phase II 04/05/25 14:33 Procedure Start Time: 10:43 Procedure Stop Time: 11:22 Select all DRAINS/GRAFTS/IMPLANTS that apply: Implanted device Implanted device details: 4.75 mm PEEK swivel lock suture anchor Estimated Blood Loss: 5 cc Specimen collected: No Description of surgery: Patient identified preoperative holding area by name, correct number, and date of . The operative extremity was marked. All questions were answered to the patient satisfaction. Peripheral block was administered by anesthesia staff prior to the procedure. At time of her procedure, patient brought the operative suite positioned supine on standard operating table. All bony prominences well-padded. General anesthesia was administered and LMA was placed. A well-padded pneumatic tourniquet was applied to the operative upper thigh. An arthroscopic leg ray was placed around the left lower extremity. A well-leg ray was placed beneath the patient's right thigh. The foot of the bed was dropped 90 degrees. We prepped and draped the right lower extremity in normal, sterile orthopedic fashion. We performed timeout with all parties in attendance in agreement with the side, site, operation be performed. 2 g Ancef was administered by anesthesia staff prior to tourniquet inflation. I then exsanguinated the left lower extremity with Esmarch bandage. Tourniquet was inflated to 250 mmHg for 28 minutes. Esmarch was removed. Standard anterolateral portal was then established 90 degrees of flexion. Blunt tipped trocar was used to enter the knee joint. Knee was filled with normal saline with epinephrine. Arthroscope was then introduced. Patellofemoral joint demonstrated mild grade 1?2 chondromalacia. Medial lateral gutters were unremarkable. Medial compartment was entered with valgus stress. Anterior medial portal was established in standard fashion. Probing the medial meniscus demonstrated full-thickness meniscal root tear. Focal grade III chondromalacia was noted approximately 1 x 1 cm along the medial aspect of the medial femoral condyle. Cartilage was stable. Tibial cartilage demonstrated grade I chondromalacia. Intercondylar notch was examined and ACL was pristine. Lateral compartment was entered with a [id number] stress. The lateral compartment was probed and the meniscus was stable without significant tearing noted. I then returned to the medial compartment. I elected to proceed with meniscal root repair. I debrided the footprint of the meniscus and decorticated with a rasp. 2 fiber link sutures were passed through the posterior horn 3-4 mm from the tear margin with a [employer] meniscal suture passer. Sutures were then retrieved out an accessory far medial portal. I then introduced the drill guide for the tibial tunnel. This was placed at the crow footprint. 2 cm incision was made along the anterior medial tibial crest. I then drilled to our planned trajectory with a flip cutter. The flip cutter was deployed and a 1 cm socket was established in the subchondral bone. A nitinol wire was then passed through the tibial tunnel after the drill was removed. Sutures were shuttled through the tibial tunnel. Sutures were passed through the eyelet of a swivel lock anchor. Approximately 1 cm distal to our tunnel, I drilled and tapped for the swivel lock anchor. Suture was tensioned within the anchor and the anchor was successfully placed with excellent cortical purchase. Sutures were cut. The meniscus was probed and appeared stable. Portal sites were closed in interrupted [id number] fashion with 3-0 nylon suture. Bulky sterile compression system was applied. Patient was safely awakened in the operative suite and extubated. A T ROM brace was placed locked in full extension and set from 0 to 90 degrees. She was transferred to his gurney and subsequent to PACU in stable condition. She underwent femoral nerve block in the PACU to assist with postoperative analgesia. Need for skilled railway yard assistant: Harriet Kendy, PA-C was critical to the outcome of the case. During the course of the procedure the physician railway yard assistant played a vital role. Her intimate knowledge of my steps in the procedure aided in safe and expedient completion of the procedure. The PA played a vital role in positioning particularly in obtaining the appropriate positioning. The PA was also vital in the retraction of soft tissues during the exposure and protecting vital structures. The PA was also vital and obtaining meniscus reduction and assisting with hardware placement. She also played a vital role in closure and brace application with my direct supervision. Postoperative plan: Follow-up in 2 weeks for suture removal Nonweightbearing x 6 weeks Range of motion 0-90 degrees x 6 weeks Physical therapy to start next week Aspirin 81 mg twice daily for DVT prophylaxis x 6 weeks Multimodal pain management in the form of Tylenol, NSAIDs, opioid as prescribed Surgical Findings: Full-thickness medial meniscal root tear. Stable following fixation. Focal grade 3 chondral lesion medial femoral condyle 1 x 1 cm Complications Complications: No Admit VTE Documentation VTE Present on Admission: No VTE Mechan Device Prophylaxis: SCD's VTE Pharm Prophylaxis ordered?: Yes
== END 2025-04-05 14:33 | disposition home or self-care (01) ==
LOC: SDC 08:49 → AC 08:50
PROVIDERS: PCP Registered Nurse; Referring Provider Student in an Organized Health Care Education/Training Program; Visit Provider Student in an Organized Health Care Education/Training Program
PROC: (CPT 29870; principal; 2025-04-05 09:55)
DX: S83.242A Other tear of medial meniscus, current injury, left knee, initial encounter (principal); Z86.16 Personal history of COVID-19; Z90.710 Acquired absence of both cervix and uterus; F32.A Depression, unspecified; I10 Essential (primary) hypertension; Z87.442 Personal history of urinary calculi; F41.9 Anxiety disorder, unspecified; R73.03 Prediabetes; Z79.82 Long term (current) use of aspirin; M22.42 Chondromalacia patellae, left knee
CPT/HCPCS: 29881; 01400; 36415; 82962; 83036; J2405

== ENCOUNTER 2025-05-29 11:58 | Day surgery (SDC) | payer OTHER, SELFPAY ==
--- OUTSIDE RECORDS SUMMARY | 2025-03-13 08:12 | XMS RPT_ITS ---
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 Name Role Phone MAIDA WARD Attending Unavailable MAIDA WARD Primary Care Unavailable PROBLEMS DATE TYPE CONDITION / CODE ATTENDING STATUS [facility] 03/13/2025 Active Type 2 diabetes mellitus without complication, without long-term current use of insulin (HCC) / E11.9(ICD-10) [facility] 03/13/2025 Active Routine physical examination / [facility]00.00(ICD-10) [facility] Active Adjustment react ion with anxiety and depression / F43.23(ICD-10) [facility] 03/13/2025 Active Bee sting, accid ental or unintentional, sequela / T63.441S(ICD-10) [facility] Active Anal fissure / K60.2(ICD-10) [facility] 03/13/2025 Active Other tear of me dial meniscus, current injury, right knee, subsequent encounter / S83.241D(ICD-10) [facility] 03/13/2025 Active Class 2 severe o besity due to excess calories with serious comorbidity and body mass index (BMI) of 38.0 to 38.9 in adult (HCC) / E66.812(ICD-10) [facility] 03/13/2025 Active Class 2 severe o besity due to excess calories with serious comorbidity and body mass index (BMI) of 38.0 to 38.9 in adult (HCC) / E66.01(ICD-10) [facility] 03/13/2025 Active Class 2 severe o besity due to excess calories with serious comorbidity and body mass index (BMI) of 38.0 to 38.9 in adult (HCC) / Z68.38(ICD-10) MAIDA WARD Active [facility] PROCEDURES No Procedure Records Found RESULTS GABRIELLE Observed: 04/13/2025 12:00 AM Status: COMPLETED Source: [facility] Telephone (INTMWS) CHRISTIN BABB ([id number]) 1975 F [facility] Date Time Provider Department 04/13/25 MAIDA WARD INTMWS During your visit today, we recorded the following information about you: Marco Pettit LPN 04/13/2025 11:54 AM Signed unable to complete PA for mounjaro electronically. Aida says to complete with rx benefits. Form completed. Marco Pettit LPN 04/13/2025 2:47 PM Signed Another form rec'd this was completed and to pcp to sign.(ITS THE SAME QUESTIONS JUST DIFFERENT FORM). Marco Pettit LPN 04/16/2025 2:12 PM Signed Fax rec'd from insurance noting no PA was needed. Allergies As of Date: 04/13/2025 Noted Allergy Reaction LATEX 05/24/2013 2 - Rash PENICILLINS 05/24/2013 4 - Hives SULFA (SULFONAMIDE ANTIBIOTICS) 05/24/2013 4 - Hives Date Reviewed: 03/13/2025 Reviewed by: Leander Swanson LPN - Fully Assessed Reason for Visit: Insurance Authorization [[id number]] Prescriptions as of 04/16/2025 - tirzepatide (MOUNJARO) 2.5 mg/0.5 mL pen injector Inject 2.5 mg subcutaneously one time a week. - metFORMIN ER (GLUCOPHAGE XR) 500 mg 24 hr tablet Take 2 tablets by mouth daily with breakfast. - lisinopril (ZESTRIL) 10 mg tablet Take 1 tablet by mouth once daily. - sertraline (ZOLOFT) 100 mg tablet Take 1 tablet by mouth once daily. - EPINEPHrine (EPIPEN 2-BLAIR) 0.3 mg/0.3 mL auto-injector Inject 0.3 mL intramuscularly as needed. 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] 08/20/2015 Hearing loss in left ear [H91.92] 09/12/2015 Fatty liver [K76.0] 07/15/2016 Non morbid obesity [E66.9] 07/15/2016 Nephrolithiasis [N20.0] 09/07/2017 Hepatic steatosis [K76.0] 09/07/2017 Recurrent UTI (urinary tract infection) [N39.0] 09/07/2017 Hypertension, essential [I10] 11/03/2017 Elevated blood uric acid level [E79.0] 04/19/2019 COVID-19 virus RNA test result positive at [facility] [place]*03/22/2021 Tear of right acetabular labrum [S73.191A] 08/09/2021 Mitral valve annular calcification [I34.81] 04/24/2022 Type 2 diabetes mellitus without complication, *03/13/2025 Encounter Status:Closed by MARCO PETTIT on 04/16/25 PROGRESS Observed: 03/13/2025 10:58 AM Status: COMPLETED Source: [facility] ID: [id number] Author: MAIDA WARD APRN.GSA COORDINATOR Service: ? Author Type: Nurse Practitioner Type: Progress Notes Filed: 03/13/2025 11:07 Note Text: This is a 49 year old female who presents today with: Christin Babb is a 49-year-old female with a new dx of type 2 diabetes mellitus, presenting for an annual wellness visit and management of elevated A1c. HISTORY OF PRESENT ILLNESS: Annual Wellness Exam: Needs annual wellness for employer. Had recent labs that showed elevated A1C 7.6. Previously prediabetic. Vision Changes: - Has progressive lenses; reports difficulty focusing. - Diagnosed with retinal degeneration; next eye exam scheduled for May. Anal Fissure: - Recent history of anal fissure; currently managing with suppositories PRN. Symptoms improved. Avoiding constipation. Knee Pain: - Scheduled for knee surgery with Dr. Boston on April 05 for a root tear; will be non-weight bearing for 6-8 weeks post-op. Type 2 Diabetes Mellitus: - Recent A1c elevated at 7.6%. - Taking metformin daily; suspects it may cause diarrhea. - History of gestational diabetes during second . - Discussed dietary changes to manage blood sugar levels. PAST MEDICAL HISTORY: PAST MEDICAL HISTORY Diagnosis Date Abnormal computed tomography angiography (CTA) of abdomen and pelvis 09/03/2021 CT ab/pel w/con: fatty liver, 3mm stone right kdney Anxiety Benign neoplasm of colon Fatty liver seen on CT Kidney stones last one 2004 Lab test positive for detection of COVID-19 virus 03/19/2021 Sx onset 03/16/21, monoclonal Ab tx per pulmonology [facility] Non morbid obesity 07/15/2016 S/P laparoscopic [...] Antibiotics) MEDICATIONS Current Outpatient Medications Medication Sig tirzepatide (MOUNJARO) 2.5 mg/0.5 mL pen injector Inject 2.5 mg subcutaneously one time a week. metFORMIN ER (GLUCOPHAGE XR) 500 mg 24 hr tablet Take 2 tablets by mouth daily with breakfast. lisinopril (ZESTRIL) 10 mg tablet Take 1 tablet by mouth once daily. sertraline (ZOLOFT) 100 mg tablet Take 1 tablet by mouth once daily. EPINEPHrine (EPIPEN 2-BLAIR) 0.3 mg/0.3 mL auto-injector Inject 0.3 mL intramuscularly as needed. No current facility-administered medications for this visit. FAMILY HISTORY Problem Relation Age of Onset Hypertension Mother other (no breast ca) Other other (no colon ca) Other other (no cad) Other Heart Failure Maternal Grandmother other (dm) Maternal Grandmother other (sudden ) Paternal Grandmother Social History Tobacco Use Smoking status: Never Smokeless tobacco: Never Substance Use Topics Alcohol use: No Drug use: No REVIEW OF SYSTEMS Constitutional: (+) fatigue, (-) unintentional weight loss, (-) weakness Head: (-) headache Ears/Nose/Mouth/Throat: (-) hearing loss, (-) dysphagia Neck: (-) neck mass Cardiovascular: (+) lower extremity edema, (-) chest pain, (-) palpitations Respiratory: (-) dyspnea Gastrointestinal: (+) constipation, (+) diarrhea, (+) rectal bleeding, (-) heartburn Genitourinary: (-) dysuria Musculoskeletal: (+) knee pain, (+) back stiffness, (-) joint redness Skin: (-) skin problems Neurological: (-) syncope, (-) seizures, (-) tremors Psychiatric: (+) anxiety, (-) depression Endocrine: (+) heat intolerance, (-) cold intolerance, (-) polydipsia, (-) polyuria Hematologic/Lymphatic: (-) easy bruising, (-) abnormal bleeding EXAM: BP 118/82 Pulse 69 Resp 16 Wt 111.1 kg (245 lb) SpO2 97% BMI 38.01 kg/m? PHYSICAL EXAM: General Appearance: Well appearing, alert, in no acute distress, well-hydrated, well nourished.. Skin: Skin color, texture, turgor normal, no suspicious rashes or lesions. Head: Normocephalic, no masses, lesions, tenderness or abnormalities. Eyes: Anicteric sclera. Pupils are equally round and reactive to light. Extraocular movements are intact. . Ears: External ears normal, canals clear. Normal TMs bilaterally. Oropharynx: Lips, mucosa, and [...] Good capillary refill. . Neurologic: Gait normal. Feet:Shoes and socks removed, No deformities, ulcers, calluses, normal distal pulses, and sensitive to 10 gm monofilament ASSESSMENT/PLAN 1. Routine physical examination (Z00.00) - Completed comprehensive physical examination. - No acute abnormalities noted. Health Promotion: - Eat healthy -- go to [employer] to get started - Have a yearly [...] text and drive - Wear sunscreen 2. Type 2 diabetes mellitus without complication, without long-term current use of insulin ([facility]) (E11.9) 3. Class 2 severe obesity due to excess calories with serious comorbidity and body mass index (BMI) of 38.0 to 38.9 in adult ([facility]) (E66.812) - Recent lab results indicate elevated A1c. New dx of DM. - Currently on metformin 1 tablet daily; increased dosage to 2 tablets daily. - Discussed GLP-1 receptor agonists, specifically Mounjaro, for glycemic control and weight management. - Educated on potential side effects, including delayed gastric emptying. - Surgery is in 3 weeks. Advised to initiate Mounjaro post-surgery (after potential n/v or constipation post-op) - Will monitor A1c in 3 months post-initiation of Mounjaro. - Emphasized dietary modifications, including carbohydrate and sugar reduction. - Refilled metformin prescription with updated dosage instructions. 4. Adjustment reaction with anxiety and depression (F43.23) - Currently managed with sertraline 100 mg daily. - Reports stable mood and anxiety levels. - No longer taking BuSpar. - Continue current sertraline regimen. 5. Bee sting, accidental or unintentional, sequela (T63.441S) - Would like to obtain an EpiPen due to beekeeping activities. 6. Anal fissure (K60.2) - Intermittent bleeding noted. - Advised use of stool softeners or Miralax to prevent constipation and facilitate healing. - Monitor for any worsening symptoms. 7. Other tear of medial meniscus, current injury, right knee, subsequent encounter (S83.241D) - Scheduled for knee surgery on April [address] Veronica. - Will be non-weight bearing for 6-8 weeks post-operatively, followed by partial weight bearing for an additional 2 weeks. Discussed treatment plan and patient voices understanding. Patient's questions answered appropriately. Medications and potential side effects were discussed and patient voices understanding. Return to the office as scheduled or as needed for worsening/no improvement. Maida Ward APRN.GSA COORDINATOR Recording using [email or web address] software for draft documentation of the visit was discussed with the patient/authorized group sales representative; all questions welcomed and answered. Patient/authorized group sales representative agreed to proceed CNOV Observed: 03/13/2025 8:20 AM Status: COMPLETED Source: [facility] CHRISTIN BABB ([id number]) 1975 F [facility] Date Time Provider Department 03/13/25 8:20 AM MAIDA WARD During your visit today, we recorded the following information about you: Pulse Respiration Blood pressure Weight 69/minute 16/minute 118/82 111.1 kg Maida Ward APRN.SCOOTER 03/13/2025 9:16 AM Signed - Increased metformin to 2 tablets by mouth daily; you may take both with breakfast or split between breakfast and dinner if you notice diarrhea. - Refill for lisinopril has been sent to [facility]; pick it up as soon as it?s ready. 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 - Do not begin Mounjaro until you?ve recovered from your knee surgery--hold it through your procedure and initial recovery. - Inject Mounjaro once weekly in your belly or thigh; if you develop nausea, switch to the thigh injection site. Check in between week 3-4. - Start Miralax as a daily stool softener if you experience constipation, especially after starting Mounjaro; ensure you drink plenty of water. You may also use fiber supplements (e.g., Metamucil) with adequate fluids. - Continue monitoring carbohydrates at meals--pair each carb choice (toast, juice, etc.) with protein (peanut butter, eggs) to lessen blood sugar spikes. Limit high-sugar drinks such as orange juice. - Arrange an A1c recheck about 3 months after you start Mounjaro to assess blood sugar control and guide further adjustments. - Plan to touch base via chart message around week 3-4 after surgery to confirm tolerability of Mounjaro and authorize dose escalation if appropriate. Maida Ward APRN.GSA COORDINATOR 03/13/2025 11:07 AM Signed This is a 49 year old female who presents today with: Christin Babb is a 49-year-old female with a new dx of type 2 diabetes mellitus, presenting for an annual wellness visit and management of elevated A1c. HISTORY OF PRESENT ILLNESS: Annual Wellness Exam: Needs annual wellness for employer. Had recent labs that showed elevated A1C 7.6. Previously prediabetic. Vision Changes: - Has progressive lenses; reports difficulty focusing. - Diagnosed with retinal degeneration; next eye exam scheduled for May. Anal Fissure: - Recent history of anal fissure; currently managing with suppositories PRN. Symptoms improved. Avoiding constipation. Knee Pain: - Scheduled for knee surgery with Dr. Boston on April 05 for a root tear; will be non-weight bearing for 6-8 weeks post-op. Type 2 Diabetes Mellitus: - Recent A1c elevated at 7.6%. - Taking metformin daily; suspects it may cause diarrhea. - History of gestational diabetes during second . - Discussed dietary changes to manage blood sugar levels. PAST MEDICAL HISTORY: PAST MEDICAL HISTORY Diagnosis Date Abnormal computed tomography angiography (CTA) of abdomen and pelvis 09/03/2021 CT ab/pel w/con: fatty liver, 3mm stone right kdney Anxiety Benign neoplasm of colon Fatty liver seen on CT Kidney stones last one 2004 Lab test positive for detection of COVID-19 virus 03/19/2021 Sx onset 03/16/21, monoclonal Ab tx per pulmonology [facility] Non morbid obesity 07/15/2016 S/P laparoscopic [...] Antibiotics) MEDICATIONS Current Outpatient Medications Medication Sig tirzepatide (MOUNJARO) 2.5 mg/0.5 mL pen injector Inject 2.5 mg subcutaneously one time a week. metFORMIN ER (GLUCOPHAGE XR) 500 mg 24 hr tablet Take 2 tablets by mouth daily with breakfast. lisinopril (ZESTRIL) 10 mg tablet Take 1 tablet by mouth once daily. sertraline (ZOLOFT) 100 mg tablet Take 1 tablet by mouth once daily. EPINEPHrine (EPIPEN 2-BLAIR) 0.3 mg/0.3 mL auto-injector Inject 0.3 mL intramuscularly as needed. No current facility-administered medications for this visit. FAMILY HISTORY Problem Relation Age of Onset Hypertension Mother other (no breast ca) Other other (no colon ca) Other other (no cad) Other Heart Failure Maternal Grandmother other (dm) Maternal Grandmother other (sudden ) Paternal Grandmother Social History Tobacco Use Smoking status: Never Smokeless tobacco: Never Substance Use Topics Alcohol use: No Drug use: No REVIEW OF SYSTEMS Constitutional: (+) fatigue, (-) unintentional weight loss, (-) weakness Head: (-) headache Ears/Nose/Mouth/Throat: (-) hearing loss, (-) dysphagia Neck: (-) neck mass Cardiovascular: (+) lower extremity edema, (-) chest pain, (-) palpitations Respiratory: (-) dyspnea Gastrointestinal: (+) constipation, (+) diarrhea, (+) rectal bleeding, (-) heartburn Genitourinary: (-) dysuria Musculoskeletal: (+) knee pain, (+) back stiffness, (-) joint redness Skin: (-) skin problems Neurological: (-) syncope, (-) seizures, (-) tremors Psychiatric: (+) anxiety, (-) depression Endocrine: (+) heat intolerance, (-) cold intolerance, (-) polydipsia, (-) polyuria Hematologic/Lymphatic: (-) easy bruising, (-) abnormal bleeding EXAM: BP 118/82 Pulse 69 Resp 16 Wt 111.1 kg (245 lb) SpO2 97% BMI 38.01 kg/m? PHYSICAL EXAM: General Appearance: Well appearing, alert, in no acute distress, well-hydrated, well nourished.. Skin: Skin color, texture, turgor normal, no suspicious rashes or lesions. Head: Normocephalic, no masses, lesions, tenderness or abnormalities. Eyes: Anicteric sclera. Pupils are equally round and reactive to light. Extraocular movements are intact. . Ears: External ears normal, canals clear. Normal TMs bilaterally. Oropharynx: Lips, mucosa, and [...] Good capillary refill. . Neurologic: Gait normal. Feet:Shoes and socks removed, No deformities, ulcers, calluses, normal distal pulses, and sensitive to 10 gm monofilament ASSESSMENT/PLAN 1. Routine physical examination (Z00.00) - Completed comprehensive physical examination. - No acute abnormalities noted. Health Promotion: - Eat healthy -- go to [email or web address] to get started - Have a yearly [...] text and drive - Wear sunscreen 2. Type 2 diabetes mellitus without complication, without long-term current use of insulin ([facility]) (E11.9) 3. Class 2 severe obesity due to excess calories with serious comorbidity and body mass index (BMI) of 38.0 to 38.9 in adult ([facility]) (E66.812) - Recent lab results indicate elevated A1c. New dx of DM. - Currently on metformin 1 tablet daily; increased dosage to 2 tablets daily. - Discussed GLP-1 receptor agonists, specifically Mounjaro, for glycemic control and weight management. - Educated on potential side effects, including delayed gastric emptying. - Surgery is in 3 weeks. Advised to initiate Mounjaro post-surgery (after potential n/v or constipation post-op) - Will monitor A1c in 3 months post-initiation of Mounjaro. - Emphasized dietary modifications, including carbohydrate and sugar reduction. - Refilled metformin prescription with updated dosage instructions. 4. Adjustment reaction with anxiety and depression (F43.23) - Currently managed with sertraline 100 mg daily. - Reports stable mood and anxiety levels. - No longer taking BuSpar. - Continue current sertraline regimen. 5. Bee sting, accidental or unintentional, sequela (T63.441S) - Would like to obtain an EpiPen due to beekeeping activities. 6. Anal fissure (K60.2) - Intermittent bleeding noted. - Advised use of stool softeners or Miralax to prevent constipation and facilitate healing. - Monitor for any worsening symptoms. 7. Other tear of medial meniscus, current injury, right knee, subsequent encounter (I95.794D) - Scheduled for knee surgery on April [address] Veronica. - Will be non-weight bearing for 6-8 weeks post-operatively, followed by partial weight bearing for an additional 2 weeks. Discussed treatment plan and patient voices understanding. Patient's questions answered appropriately. Medications and potential side effects were discussed and patient voices understanding. Return to the office as scheduled or as needed for worsening/no improvement. Maida Ward APRN.GSA COORDINATOR Recording using [email or web address] software for draft documentation of the visit was discussed with the patient/authorized group sales representative; all questions welcomed and answered. Patient/authorized group sales representative agreed to proceed Allergies As of Date: 03/13/2025 Noted Allergy Reaction LATEX 05/24/2013 2 - Rash PENICILLINS 05/24/2013 4 - Hives SULFA (SULFONAMIDE ANTIBIOTICS) 05/24/2013 4 - Hives Date Reviewed: 03/13/2025 Reviewed by: Leander Swanson LPN - Fully Assessed Reason for Visit: Yearly Exam [187] Primary Visit Diagnosis:Routine physical examination [Z00.00] Other Visit Diagnoses:Type 2 diabetes mellitus without complication, without long-term current use of insulin ([facility]) [E11.9] Adjustment reaction with anxiety and depression [F43.23] Bee sting, accidental or unintentional, sequela [T63.441S] Anal fissure [K60.2] Other tear of medial meniscus, current injury, right knee, subsequent encounter [P73.241D] Class 2 severe obesity due to excess calories with serious comorbidity and body mass index (BMI) of 38.0 to 38.9 in adult ([facility]) [E66.812, E66.01, Z68.38] Order(s):tirzepatide (MOUNJARO) 2.5 mg/0.5 mL pen injectorInject 2.5 mg subcutaneously one time a week.Disp: 4 eachRfl: 0 metFORMIN ER (GLUCOPHAGE XR) 500 mg 24 hr tabletTake 2 tablets by mouth daily with breakfast.Disp: 180 tabletRfl: 5 lisinopril (ZESTRIL) 10 mg tabletTake 1 tablet by mouth once daily.Disp: 90 tabletRfl: 3 sertraline (ZOLOFT) 100 mg tabletTake 1 tablet by mouth once daily.Disp: 90 tabletRfl: 1 EPINEPHrine (EPIPEN 2-BLAIR) 0.3 mg/0.3 mL auto-injectorInject 0.3 mL intramuscularly as needed.Disp: 1 eachRfl: 0 ALBUMIN/CREATININE RATIO, URINE [SQUACR] Order #: [id number] FUTURE HEMOGLOBIN A1C [GEBZU7P] Order #: [id number] FUTURE Prescriptions as of 03/13/2025 - tirzepatide (MOUNJARO) 2.5 mg/0.5 mL pen injector Inject 2.5 mg subcutaneously one time a week. - metFORMIN ER (GLUCOPHAGE XR) 500 mg 24 hr tablet Take 2 tablets by mouth daily with breakfast. - lisinopril (ZESTRIL) 10 mg tablet Take 1 tablet by mouth once daily. - sertraline (ZOLOFT) 100 mg tablet Take 1 tablet by mouth once daily. - EPINEPHrine (EPIPEN 2-BLAIR) 0.3 mg/0.3 mL auto-injector Inject 0.3 mL intramuscularly as needed. 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] 08/20/2015 Hearing loss in left ear [H91.92] 09/12/2015 Fatty liver [K76.0] 07/15/2016 Non morbid obesity [E66.9] 07/15/2016 Nephrolithiasis [N20.0] 09/07/2017 Hepatic steatosis [K76.0] 09/07/2017 Recurrent UTI (urinary tract infection) [N39.0] 09/07/2017 Hypertension, essential [I10] 11/03/2017 Elevated blood uric acid level [E79.0] 04/19/2019 COVID-19 virus RNA test result positive at [facility] [place]*03/22/2021 Tear of right acetabular labrum [S73.191A] 08/09/2021 Mitral valve annular calcification [I34.81] 04/24/2022 Type 2 diabetes mellitus without complication, *03/13/2025 Other instructions from your clinician: - Increased metformin to 2 tablets by mouth daily; you may take both with breakfast or split between breakfast and dinner if you notice diarrhea. - Refill for lisinopril has been sent to [facility]; pick it up as soon as it?s ready. 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 - Do not begin Mounjaro until you?ve recovered from your knee surgery--hold it through your procedure and initial recovery. - Inject Mounjaro once weekly in your belly or thigh; if you develop nausea, switch to the thigh injection site. Check in between week 3-4. - Start Miralax as a daily stool softener if you experience constipation, especially after starting Mounjaro; ensure you drink plenty of water. You may also use fiber supplements (e.g., Metamucil) with adequate fluids. - Continue monitoring carbohydrates at meals--pair each carb choice (toast, juice, etc.) with protein (peanut butter, eggs) to lessen blood sugar spikes. Limit high-sugar drinks such as orange juice. - Arrange an A1c recheck about 3 months after you start Mounjaro to assess blood sugar control and guide further adjustments. - Plan to touch base via chart message around week 3-4 after surgery to confirm tolerability of Mounjaro and authorize dose escalation if appropriate. Prescriptions ordered this encounter Disp Refills Start End METFORMIN ER 500 MG TABLET,EXTENDED * 30 t* 5 03/13/2025 03/13/2025 Class: Med Update Route: PO Sig: Take 2 tablets by mouth daily with breakfast. TIRZEPATIDE 2.5 MG/0.5 ML SUBCUTANEO* 4 ea* 0 03/13/2025 Route: SQ Sig: Inject 2.5 mg subcutaneously one time a week. METFORMIN ER 500 MG TABLET,EXTENDED * 180 * 5 03/13/2025 Route: PO Sig: Take 2 tablets by mouth daily with breakfast. LISINOPRIL 10 MG TABLET 90 t* 3 03/13/2025 Route: PO Sig: Take 1 tablet by mouth once daily. SERTRALINE 100 MG TABLET 90 t* 1 03/13/2025 Route: PO Sig: Take 1 tablet by mouth once daily. EPINEPHRINE 0.3 MG/0.3 ML INJECTION,* 1 ea* 0 03/13/2025 Route: IM Sig: Inject 0.3 mL intramuscularly as needed. Medications Discontinued During This Encounter Prescriptions - busPIRone (BUSPAR) 5 mg tablet (Discontinued) Take 1 tablet by mouth three times a day. As needed for anxiety. - sertraline (ZOLOFT) 50 mg tablet (Discontinued) Take 1 tablet by mouth once daily. Take with the 100 mg tablet for total daily dose of 150 mg. - metFORMIN ER (GLUCOPHAGE XR) 500 mg 24 hr tablet (Discontinued) Take 1 tablet by mouth daily with breakfast. - metFORMIN ER (GLUCOPHAGE XR) 500 mg 24 hr tablet (Discontinued) Take 2 tablets by mouth daily with breakfast. - lisinopril (ZESTRIL) 10 mg tablet (Discontinued) Take 1 tablet by mouth once daily. - sertraline (ZOLOFT) 100 mg tablet (Discontinued) Take 1 tablet by mouth once daily. Encounter Status:Closed by MAIDA WARD on 03/13/25 ALLERGIES DATE TYPE / CODE NAME / CODE REACTION SEVERITY SOURCE 05/24/2013 DRUG INGREDI/1879480 03(SNOMED CT) LATEX RASH [facility] 05/24/2013 Drug Class/384222938 (SNOMED CT) PENICILLINS HIVES [facility] 05/24/2013 Drug Class/[id number] (SNOMED CT) SULFA (SULFONAMIDE ANTIBIOTICS) HIVES [facility] ENCOUNTERS ADMIT/DISCHARGE ACCOUNT NUMBER ADMITTING ENCOUNTER CLASS LOC ATION SOURCE 03/13/2025/ 5 [id number] [facility] PAYERS ENCOUNTER GUARANTOR PAYER SUBSCRIBER SOURCE 03/13/2025 Primary Insuranc e:[facility] Number: [id number] Date:[id number] Name:Karma RIVAS: [id number] [place] [address] [facility]
--- NOTE | 2025-05-28 10:05 | PAT.ANESEVAL ---
Pre-Assessment Diagnosis/Proposed Procedure Planned Operative Procedure(s): LATERAL INTERNAL SPHINCTEROTOMY 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 - supervisor porcelain department: 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 - supervisor porcelain department Hx Hospitalization No 05/28/25 08:28 Any Problems With Anesthesia Yes: N,V. NO PROBLEM WITH 05/28/25 08:28 2024 Cholinesterase deficiency No 05/28/25 08:28 You/Your Family Experience No 05/28/25 08:28 fever (hyperthermia) with Relationship Recent Exposure to Contagious No 04/05/25 09:20 Disease Does patient have nerve No 05/28/25 08:28 stimulator Patient instructed to have device shut off --Does patient have Pacemaker or ICD? When Was Last Pacemaker Check QUESTION #4 FULL TEXT: You/Your Family Experience fever (hyperthermia) with Anesthesia Last Oral Intake Last Oral intake: Last Oral Intake NPO since Meds taken in AM with sips of water? Meds patient instructed to take am of surgery PONV PONV - supervisor porcelain department: PONV - supervisor porcelain department Female Yes 05/28/25 08:28 HX of Motion Sickness No 05/28/25 08:28 HX of N/V After Surgery Yes 05/28/25 08:28 Non-Smoker Yes 05/28/25 08:28 Duration of Surgery greater Yes 05/28/25 08:28 than 60 minutes Number of Risk Factors 4 05/28/25 08:28 PONV Score Severe Risk 05/28/25 08:28 Height & Weight Height & Weight: Anesthesia: Height & Weight Height 5 ft 6 in 05/25/25 14:03 Respiratory Assessment Respiratory Assessment - supervisor porcelain department: Respiratory Tract Infection Hx - supervisor porcelain department Hx Respiratory Tract Infection No 05/28/25 08:28 STOP Sleep Apnea STOP Sleep Apnea - supervisor porcelain department: STOP Sleep Apnea - supervisor porcelain department Hx Hypertension Yes: CONTROLLED WITH MED 05/28/25 08:28 Hx Sleep Apnea No 05/28/25 08:28 CPAP No 04/05/25 11:26 BIPAP Do you snore loudly (louder No 05/28/25 08:28 than talking or can be heard Do you often feel tired/ No 05/28/25 08:28 fatigued/ sleepy during daytime? Has anyone observed you stop No 05/28/25 08:28 breathing during sleep? STOP Results Negative 05/28/25 08:28 QUESTION #5 FULL TEXT : Do you snore loudly (louder than talking or can be heard through closed doors)? 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 Specify any problems Hx of Preganancy in last 3 No 05/28/25 08:28 Months Nurse Filling Out Transfusion DSCHRIBER 05/28/25 08:28 & Questions: Date: 05/28/25 05/28/25 08:28 Time: 05/28/25 08:28 Patient unable to answer at this time (ie. confused, unrespo /Reproduction History /Reproductive History - supervisor porcelain department: /Reproductive Hx- supervisor porcelain department Hx Now No 05/28/25 08:28 Gestational Age (in weeks): EDC: Hx Hx Para Hx Section SAB No 05/28/25 08:28 PFSH Medical History Normal Holter exam Anal fissure Effusion, left knee Diabetes Restless legs Shortness of breath on exertion Leg cramps Cardiology follow-up encounter History of echocardiogram History of stress test Nonrheumatic mitral valve disorder Fatty liver Wears glasses Depression Anxiety Back pain Non-smoker History of edema Hypertension Labral tear of right hip joint Segmental and somatic dysfunction of pelvic region Segmental and somatic dysfunction of lumbar region Segmental and somatic dysfunction of thoracic region Segmental and somatic dysfunction of cervical region Home Medications ?Medication ?Instructions ?Recorded ?Last Taken ?Type sertraline 100 mg tablet 100 mg PO QHS mental health 08/30/17 03/20/21 History lisinopril 10 mg tablet 10 mg PO QHS blood pressure 12/14/17 03/20/21 History metformin 500 mg tablet,extended 500 mg PO BID 11/29/23 Unknown History release 24 hr vitamin E (dl, acetate) 180 mg 180 mg PO BID #60 caps 06/06/24 Unknown Rx (400 unit) capsule Diltiazem 2% / Lidocaine 5% #1 ea 11/09/24 Unknown Rx ointment (compound) (Diltiazem 2%/Lidocaine 5% ointment (compound)) Hydrocortisone 2.5%/lidocaine 5% #42 ea 11/10/24 Unknown Rx suppository (cmpd) cholecalciferol (vitamin D3) 125 125 mcg PO DAILY 03/07/25 Unknown History mcg (5,000 unit) tablet (Vitamin D3) magnesium 250 mg tablet 250 mg PO DAILY 03/07/25 Unknown History tirzepatide 2.5 mg/0.5 mL 2.5 mg subcut STERN 05/25/25 05/20/25 History subcutaneous pen injector (Mounjaro) Allergy/AdvReac Type Severity Reaction Status Date / Time latex Allergy Swelling, Verified 05/25/25 14:04 itching Penicillins (PCN) Allergy other Verified 05/25/25 14:04 Sulfa (Sulfonamide Allergy Hives, Verified 05/25/25 14:04 Antibiotics) welts Family History Mother Hypertension Thyroid disorder Depression Rheumatoid arthritis Grandmother Parkinsons disease Surgical History Hx of knee surgery Hx of cystoscopy History of adenoidectomy History of laparoscopic appendectomy (~09/03/21) History of History of lithotripsy History of tonsillectomy History of colonoscopy (~2015) History of hysterectomy (~2011) History of cholecystectomy (~2001) Social History household members: spouse and children housing: house number of children: 3 current occupational status: employed pets and animals: Yes Smoking Status: Never smoker alcohol intake: never substance use type: does not use caffeine: Yes (occasional) what type of physical activity do you participate in: none seatbelt use: always do you feel safe at home: Yes Addt'l Information Additional Findings: sinus bradycardic on EKG; >4 MEts Recommendation Anesthesia Recommendation Anesthesia recommendation: OPTIMIZED for anesthesia
[2025-05-29] VITALS (12 sets, daily range): BP systolic 110–147; BP diastolic 59–76; PULSE 68–84; RESP 16–18; TEMP 36.2–36.6; O2SAT 93–97; BMI 37.8
[2025-05-29] MEDS: Lactated Ringers 1,000 ML 15 ML IV (12:33)
--- NOTE | 2025-05-29 13:03 | PRE.ANES_ITS ---
ASA Classification* ASA Classification ASA Classification: 2 Assessment & Plan Anesthesia* Anesthesia Assessment Anesthesia Assessment: Discussed sedation and/or anesthesia options, risks, benefits, and alternatives with patient/parents/legal guardian/POA. Questions invited. The patient/parents/legal guardian/POA seems to understand and agrees to proceed with anesthesia plan. Reviewed the physical assessment, medical history, allergy history and patient home medications list prior to surgery/procedure/anesthetic and documented any changes. Performed airway and anesthesia risk assessments. Anesthesia Type Anesthesia Type: General History Source History Obtained from:: Patient and Chart Anesthesia Focused Assessment* Temperature: 97.5 F Pulse Rate: 68 Blood Pressure: 118/75 Respiratory Rate: 16 Pulse Ox: 96 Oxygen Delivery Method: Room Air Airway Assessment Mouth opens: >3 cm Mallampati Score: III Teeth Condition: Intact Neck Range of motion (ROM): Full ROM Labs Anesthesia Preop lab: CBC WBC, (4.4-11.0) 5.9 K/mm3 03/09/25, 08:42 RBC, (4.2-5.4) 5.17 M/mm3 03/09/25, 08:42 Hgb, (12.0-15.0) 15.0 g/dL 03/09/25, 08:42 Hct, (37-47) 44.1 % 03/09/25, 08:42 Plt Count, (150-450) 243 K/mm3 03/09/25, 08:42 CHEMISTRY Potassium, (3.3-5.1) 4.5 mmol/L 03/09/25, 08:42 Sodium, (133-145) 139 mmol/L 03/09/25, 08:42 Magnesium, (1.6-2.6) 1.7 mg/dL 03/24/22, 15:40 Phosphorus, (2.7-4.5) 3.8 mg/dL 03/09/25, 08:42 BUN, (4-19) 18 mg/dL 03/09/25, 08:42 Creatinine, (0.70-1.20) 0.79 mg/dL 03/09/25, 08:42 Glucose, (70-99) 162 mg/dL H 03/09/25, 08:42 POC Glucose, (74-106) 108 mg/dL H Today, 12:24 TSH, (0.358-3.740) 1.400 uIU/mL 04/26/24, 08:27 COAG PT, (11.7-14.9) 13.4 SECONDS 08/04/19, 13:54 Pre-Assessment Diagnosis/Proposed Procedure Planned Operative Procedure(s): LATERAL INTERNAL SPHINCTEROTOMY 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 NO PROBLEM WITH 05/28/25 08:28 2024 Cholinesterase deficiency No 05/28/25 08:28 You/Your Family Experience No 05/28/25 08:28 fever (hyperthermia) with Relationship Recent Exposure to Contagious No 05/29/25 12:23 Disease Does patient have nerve No 05/28/25 08:28 stimulator Patient instructed to have device shut off --Does patient have Pacemaker No 05/29/25 12:23 or ICD? When Was Last Pacemaker Check QUESTION #4 FULL TEXT: You/Your Family Experience fever (hyperthermia) with Anesthesia Last Oral Intake Last Oral intake: Last Oral Intake NPO since 12:00 05/29/25 12:23 Meds taken in AM with sips of water? Meds patient instructed to take am of surgery Any additional information?: Yes Meds taken in AM with sips of water?: No PONV PONV - manager of distribution: PONV - manager of distribution Female Yes 05/28/25 08:28 HX of Motion Sickness No 05/28/25 08:28 HX of N/V After Surgery Yes 05/28/25 08:28 Non-Smoker Yes 05/28/25 08:28 Duration of Surgery greater Yes 05/28/25 08:28 than 60 minutes Number of Risk Factors 4 05/28/25 08:28 PONV Score Severe Risk 05/28/25 08:28 Height & Weight Height & Weight: Anesthesia: Height & Weight Height 5 ft 6 in 05/29/25 12:23 Weight: 106.141 kg 05/29/25 12:23 Body Mass Index (BMI) 37.8 05/29/25 12:23 Respiratory Assessment Respiratory Assessment - manager of distribution: Respiratory Tract Infection Hx - manager of distribution Hx Respiratory Tract Infection No 05/28/25 08:28 STOP Sleep Apnea STOP Sleep Apnea - manager of distribution: STOP Sleep Apnea - manager of distribution Hx Hypertension Yes: CONTROLLED WITH MED 05/28/25 08:28 Hx Sleep Apnea No 05/28/25 08:28 CPAP No 04/05/25 11:26 BIPAP Do you snore loudly (louder No 05/28/25 08:28 than talking or can be heard Do you often feel tired/ No 05/28/25 08:28 fatigued/ sleepy during daytime? Has anyone observed you stop No 05/28/25 08:28 breathing during sleep? STOP Results Negative 05/28/25 08:28 QUESTION #5 FULL TEXT : Do you snore loudly (louder than talking or can be heard through closed doors)? 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 Specify any problems Hx of Preganancy in last 3 No 05/28/25 08:28 Months Nurse Filling Out Transfusion DSCHRIBER 05/28/25 08:28 & Questions: Date: 05/28/25 05/28/25 08:28 Time: 08:05/28/25 08:28 Patient unable to answer at this time (ie. confused, unrespo /Reproduction History /Reproductive History - manager of distribution: /Reproductive Hx- manager of distribution Hx Now No 05/28/25 08:28 Gestational Age (in weeks): EDC: Hx Hx Para Hx Section SAB No 05/28/25 08:28 Active Medications Active Medications: Current Medications Generic Name Dose Route Start Last Admin Trade Name Freq PRN Reason Stop Dose Admin Lactated Ringer's 1,000 mls @ 15 mls/hr 05/29/25 12:15 05/29/25 12:33 IV 15 mls/hr .Q48H HAROON Administration PFSH Medical History Normal Holter exam Anal fissure Effusion, left knee Diabetes Restless legs Shortness of breath on exertion Leg cramps Cardiology follow-up encounter History of echocardiogram History of stress test Nonrheumatic mitral valve disorder Fatty liver Wears glasses Depression Anxiety Back pain Non-smoker History of edema Hypertension Labral tear of right hip joint Segmental and somatic dysfunction of pelvic region Segmental and somatic dysfunction of lumbar region Segmental and somatic dysfunction of thoracic region Segmental and somatic dysfunction of cervical region Home Medications ?Medication ?Instructions ?Recorded ?Last Taken ?Type sertraline 100 mg tablet 100 mg PO QHS mental health 08/30/17 05/28/25 History lisinopril 10 mg tablet 10 mg PO QHS blood pressure 12/14/17 05/28/25 History metformin 500 mg tablet,extended 500 mg PO BID 4 05/28/25 History release 24 hr vitamin E (dl, acetate) 180 mg 180 mg PO BID #60 caps 06/06/24 Unknown Rx (400 unit) capsule Diltiazem 2% / Lidocaine 5% #1 ea 11/09/24 Unknown Rx ointment (compound) (Diltiazem 2%/Lidocaine 5% ointment (compound)) Hydrocortisone 2.5%/lidocaine 5% #42 ea 11/10/24 Unkno wn Rx suppository (cmpd) cholecalciferol (vitamin D3) 125 125 mcg PO DAILY 05/24 Unknown History mcg (5,000 unit) tablet (Vitamin D3) magnesium 250 mg tablet 250 mg PO DAILY 03/07/25 Unk nown History tirzepatide 2.5 mg/0.5 mL 2.5 mg subcut STERN 05/25/25 History subcutaneous pen injector (Mounjaro) Allergy/AdvReac Type Severity Reaction Status Date / Time latex Allergy Swelling, Verified 05/29/25 12:21 itching Penicillins (PCN) Allergy other Verified 05/29/25 12:21 Sulfa (Sulfonamide Allergy Hives, Verified 05/29/25 12:21 Antibiotics) welts Family History Mother Hypertension Thyroid disorder Depression Rheumatoid arthritis Grandmother Parkinsons disease Surgical History Hx of knee surgery Hx of cystoscopy History of adenoidectomy History of laparoscopic appendectomy (~09/03/21) History of History of lithotripsy History of tonsillectomy History of colonoscopy (~2015) History of hysterectomy (~2011) History of cholecystectomy (~2001) Social History household members: spouse and children housing: house number of children: 3 current occupational status: employed pets and animals: Yes Smoking Status: Never smoker alcohol intake: never substance use type: does not use caffeine: Yes (occasional) what type of physical activity do you participate in: none seatbelt use: always do you feel safe at home: Yes Review of Systems (Anesthesia) ROS Narrative System reviewed and no additional complaints, except as documented.
--- NOTE | 2025-05-29 13:32 | PCM.HP.STD ---
HPI - General General Date of Admission: 05/29/25 Date of Service: 05/29/25 Chief Complaint: Nonhealing anal fissure HPI Narrative CHRISTIN BABB, is a 50 F who presents for a lateral internal sphincterotomy surgery as treatment for a nonhealing posterior anal fissure. She was seen in my office several months ago for an anal fissure however this improved only to then worsen or recently. I offered her a lateral internal sphincterotomy surgery and she wished to proceed. [facility] Medical History Normal Holter exam Anal fissure Effusion, left knee Diabetes Restless legs Shortness of breath on exertion Leg cramps Cardiology follow-up encounter History of echocardiogram History of stress test Nonrheumatic mitral valve disorder Fatty liver Wears glasses Depression Anxiety Back pain Non-smoker History of edema Hypertension Labral tear of right hip joint Segmental and somatic dysfunction of pelvic region Segmental and somatic dysfunction of lumbar region Segmental and somatic dysfunction of thoracic region Segmental and somatic dysfunction of cervical region Home Medications ?Medication ?Instructions ?Recorded ?Last Taken ?Type sertraline 100 mg tablet 100 mg PO QHS mental health 08/30/17 05/28/25 History lisinopril 10 mg tablet 10 mg PO QHS blood pressure 12/14/17 05/28/25 History metformin 500 mg tablet,extended 500 mg PO BID 11/29/23 05/28/25 History release 24 hr vitamin E (dl, acetate) 180 mg 180 mg PO BID #60 caps 06/06/24 Unknown Rx (400 unit) capsule Diltiazem 2% / Lidocaine 5% #1 ea 11/09/24 Unknown Rx ointment (compound) (Diltiazem 2%/Lidocaine 5% ointment (compound)) Hydrocortisone 2.5%/lidocaine 5% #42 ea 11/10/24 Unknown Rx suppository (cmpd) cholecalciferol (vitamin D3) 125 125 mcg PO DAILY 03/07/25 Unknown History mcg (5,000 unit) tablet (Vitamin D3) magnesium 250 mg tablet 250 mg PO DAILY 03/07/25 Unknown History tirzepatide 2.5 mg/0.5 mL 2.5 mg subcut STERN 05/25/25 05/20/25 History subcutaneous pen injector (Mounjaro) Allergy/AdvReac Type Severity Reaction Status Date / Time latex Allergy Swelling, Verified 05/29/25 12:21 itching Penicillins (PCN) Allergy other Verified 05/29/25 12:21 Sulfa (Sulfonamide Allergy Hives, Verified 05/29/25 12:21 Antibiotics) welts Family History Mother Hypertension Thyroid disorder Depression Rheumatoid arthritis Grandmother Parkinsons disease Surgical History Hx of knee surgery Hx of cystoscopy History of adenoidectomy History of laparoscopic appendectomy (~09/03/21) History of History of lithotripsy History of tonsillectomy History of colonoscopy (~2015) History of hysterectomy (~2011) History of cholecystectomy (~2001) Social History household members: spouse and children housing: house number of children: 3 current occupational status: employed pets and animals: Yes Smoking Status: Never smoker alcohol intake: never substance use type: does not use caffeine: Yes (occasional) what type of physical activity do you participate in: none seatbelt use: always do you feel safe at home: Yes Vital Signs Vital Signs Vital Signs: 05/29/25 12:23 05/29/25 12:23 05/29/25 13:11 Temperature 97.5 F L 97.5 F L Temperature Source Temporal Pulse Rate 68 68 Respiratory Rate 16 16 Respiratory Pattern Normal Blood Pressure 118/75 118/75 Blood Pressure Mean 89 Blood Pressure Source Monitor Blood Pressure Position Semi-Fowlers Blood Pressure Location Left Arm Pulse Ox 96 96 Oxygen Delivery Method Room Air Room Air Weight Weight: 234 lb Body Mass Index (BMI) 37.8 Physical Exam Const alert, oriented x3 and no apparent distress Results Lab / Micro Data Labs: Laboratory Results - last 24 hr 05/29/25 12:24: POC Glucose 108 H Assessment & Plan Assessment/Plan (1) Anal fissure: PLAN: Plan Lateral internal sphincterotomy planned for today. Details of the planned procedure and recovery again discussed. Surgery will begin shortly
[2025-05-29] MEDS: Lidocaine 1% (5 ml sdv) 5 ML Vial IV (14:16)
[2025-05-29] MEDS: DiphenhydrAMINE 50 MG/ML Syringe 12.5 MG IV (14:16)
[2025-05-29] MEDS: fentaNYL 100 MCG/2 ML Ampul IV (14:17)
[2025-05-29] MEDS: Bupiv/Epi 0.25% 30 ML Vial (14:51)
--- NOTE | 2025-05-29 15:10 | EX.PCM.DISCH ---
Discharge Instructions Diet Discharge Diet: Light diet - advance as tolerated Activity Discharge Activity: Return to Normal Activity May shower in (days): 1 Ice area for (Minutes): 30 Lifting Restrictions: None Dressing / Incision Call your doctor if your incision/area has: Continuous Slow Oozing, Sudden Increased Bleeding, Increased Pain/ Swelling, Increased Redness, Foul Smelling Discharge and Swelling at the incision site Call your doctor if you observe: Fever of 101 or Higher Change Dressing in: 1 day Cleanse incision/area with: Soap & Water Additional Dressing/Incision Instructions:: Apply topical anesthetic (Dibucaine) 2-3 times daily as needed for pain to the perianal area Follow Up Care Please Follow Up With: Riley Swann MD When: 2 weeks. Please call office to schedule appointment Test Results: Test results from this visit will be discussed in further detail at your follow-up appointment, if applicable. Discharge Plan Admission Primary Reason for Your Visit: Anal fissure Attending Provider: Riley Swann Primary Care Provider: Silvana Ward NP Instructions Print Language: Croatian Discharge Orders/Prescriptions Prescriptions: New oxycodone 5 mg tablet 5 mg PO Q8H PRN (Reason: pain) 4 Days Qty: 16 0RF Continued (DME) Diltiazem 2%/Lidocaine 5% ointment (compound) Ointment See Rx Instructions .Route Qty: 1 0RF Rx Instructions: As directed Mounjaro 2.5 mg/0.5 mL pen injector 2.5 mg subcut STERN Patient Comments: [NO ORIGINAL SIG] sertraline 100 MG tablet 100 mg PO QHS lisinopril 10 MG tablet 10 mg PO QHS cholecalciferol (vitamin D3) [Vitamin D3] 125 mcg (5,000 unit) tablet 125 mcg PO DAILY magnesium 250 mg tablet 250 mg PO DAILY metformin 500 mg tablet extended release 24 hr 500 mg PO BID vitamin E (dl, acetate) 180 mg (400 unit) capsule 180 mg PO BID Qty: 60 3RF (DME) Hydrocortisone 2.5%/lidocaine 5% suppository (cmpd) Suppository See Rx Instructions .Route Qty: 42 0RF Rx Instructions: apply to rectum BID Referrals / Follow Up: Silvana Ward NP, LANDSCAPE GARDENER-C [Primary Care Provider, Medical] Disposition Disposition (needs filled in before D/C Order can be placed): Home, Self Care
--- NOTE | 2025-05-29 15:16 | EX.PCM.DISCH ---
Discharge Instructions Diet Discharge Diet: Light diet - advance as tolerated Activity May shower in (days): 1 Ice area for (Minutes): 30 Dressing / Incision Call your doctor if your incision/area has: Continuous Slow Oozing, Sudden Increased Bleeding, Increased Pain/ Swelling, Increased Redness, Foul Smelling Discharge and Swelling at the incision site Call your doctor if you observe: Fever of 101 or Higher Cleanse incision/area with: Soap & Water Additional Dressing/Incision Instructions:: Apply topical anesthetic (Dibucaine) 2-3 times daily as needed for pain to the perianal area Follow Up Care Please Follow Up With: Riley Swann MD Test Results: Test results from this visit will be discussed in further detail at your follow-up appointment, if applicable. Discharge Plan Admission Primary Reason for Your Visit: Anal fissure Attending Provider: Riley Swann Primary Care Provider: Silvana Ward NP Instructions Print Language: Andorran Discharge Orders/Prescriptions Prescriptions: New oxycodone 5 mg tablet 5 mg PO Q8H PRN (Reason: pain) 4 Days Qty: 16 0RF Continued (DME) Diltiazem 2%/Lidocaine 5% ointment (compound) Ointment See Rx Instructions .Route Qty: 1 0RF Rx Instructions: As directed Mounjaro 2.5 mg/0.5 mL pen injector 2.5 mg subcut STERN Patient Comments: [NO ORIGINAL SIG] sertraline 100 MG tablet 100 mg PO QHS lisinopril 10 MG tablet 10 mg PO QHS cholecalciferol (vitamin D3) [Vitamin D3] 125 mcg (5,000 unit) tablet 125 mcg PO DAILY magnesium 250 mg tablet 250 mg PO DAILY metformin 500 mg tablet extended release 24 hr 500 mg PO BID vitamin E (dl, acetate) 180 mg (400 unit) capsule 180 mg PO BID Qty: 60 3RF (DME) Hydrocortisone 2.5%/lidocaine 5% suppository (cmpd) Suppository See Rx Instructions .Route Qty: 42 0RF Rx Instructions: apply to rectum BID Referrals / Follow Up: Silvana Ward NP, RADIOLOGIC TECHNOLOGY PROGRAM DIRECTOR-C [Primary Care Provider, Medical] Disposition Disposition (needs filled in before D/C Order can be placed): Home, Self Care
--- NOTE | 2025-05-29 15:16 | PCM.OPRPT ---
Multi Select Codes Digestive Digestive CPT Codes: 63171 Surg dx exam anorectal and 89080 Treatment of anal fissure Endocrine,Ocular,Nerv, Auditory Endocrine,Ocular,Nerv, Auditory CPT Codes: Other Procedure See Report (75417 bilateral pudendal nerve block) Operative Report (Standard) Operative Information Date of Procedure: 05/29/25 Pre-Operative Diagnosis: Chronic anal fissure Post-Operative Diagnosis: Same Surgery/Procedure Performed: 1. Rectal exam under anesthesia 2. Lateral internal sphincterotomy 3. Bilateral pudendal nerve block small piece cutter: No Type of Anesthesia: General and Local RN Documented Start/Stop Times: Operation Date: 05/29/25 13:30 Case Time Into Pre-Op 05/29/25 12:02 Out of Pre-Op 05/29/25 14:10 Anesthesia Start 05/29/25 14:12 Into Room 05/29/25 14:12 Procedure Start 05/29/25 14:38 Procedure End 05/29/25 14:53 Anesthesia End 05/29/25 14:58 Out of Room 05/29/25 14:58 Procedure Start Time: 14:38 Procedure Stop Time: 14:53 Select all DRAINS/GRAFTS/IMPLANTS that apply: None Estimated Blood Loss: Minimal Specimen collected: No Description of surgery: The patient is a 50-year-old female who was originally seen by me earlier this year for an acute anal fissure. This initially healed and responded to stool softening agents and nifedipine ointment. A few months ago, the patient underwent knee surgery and I suspect she had some issues with constipation and noted a significant exacerbation in her symptoms. I recently saw her in the office and confirmed recurrence of her fissure. I recommended a lateral internal sphincterotomy. We discussed the details of the planned procedure including risks benefits and alternatives. She wished to proceed. She was brought to the operating room today following informed consent. She was initially intubated on the transport cart and then she was rolled into a prone position. Appropriate padding was utilized. The bed was flexed at the waist. The perianal area was prepped and draped in the usual sterile manner. A rectal exam was performed. No masses were noted. There was clearly a very large chronic appearing posterior anal fissure. This measured about a centimeter in length and width. The sphincterotomy was then performed. This was performed by inserting an anal speculum and on the patient's left side at about the 9 o'clock position, a small amount of local anesthetic was injected just below the anoderm. A #15 blade was then used to make a small incision overlying the sphincter muscle complex. The internal sphincter muscle was dissected out and isolated. Bovie electrocautery was then used to incise the internal sphincter muscle by no more than 50%. This clinically created relaxation to the anal tone. Hemostasis was very good. The wound was then closed with running 2-0 chromic. Attention was then turned to the fissure itself. The base of the fissure was cauterized to ensure hemostasis and also to stimulate ingrowth of granulation tissue. Due to the large size of the fissure, the anoderm was closed using 2-0 chromic as well in order to help heal the wound quicker. Additional local anesthetic was then injected in a bilateral pudendal block manner. Dibucaine was placed over a Gelfoam plug and was then inserted into the rectum. She was then awakened from anesthesia and extubated. She was taken to recovery in good condition. Surgical Findings: Large posterior chronic anal fissure Complications Complications: No Admit VTE Documentation VTE Present on Admission: No VTE Mechan Device Prophylaxis: SCD's VTE Pharm Prophylaxis ordered?: No Reason prophylaxis not ordered: Treatment Not Indicated
--- NOTE | 2025-05-29 16:09 | PCM.POST.ANE ---
Anesthesia: Postop Eval I Current Vital Signs Temperature: 98 F Pulse Rate: 84 Blood Pressure: 147/76 Respiratory Rate: 16 Pulse Ox: 97 Oxygen Delivery Method: Room Air Assessment Airway patent: Yes Spontaneous unlabored respirations: Yes Mental status: Awake and Calm nausea: No Vomiting: No Anesthesia Complication: No Fluid Hydration Crystalloid volume administer (ml): 700 Total IV fluid infused: 700 Progress Note Anesthesia document: Postop Eval 1 completed: Yes
--- NOTE | 2025-05-29 22:23 | POSTOPAN2_ITS ---
Anesthesia Postop Eval I Sum Postop Eval Completion status Anesthesia document: Postop Eval 1 completed: Yes Anesthesia Postop Eval I Summary Anesthesia Postop Eval I Summary: Anesthesia Postop Eval I: Assessment Summary Airway patent Yes 05/29/25 16:10 HEALTH PROMOTION COORDINATOR.[email or web address] Spontaneous unlabored Yes 05/29/25 16:10 HEALTH PROMOTION COORDINATOR.ASHLEY respirations Mental status Awake,Calm 05/29/25 16:10 HEALTH PROMOTION COORDINATOR.[email or web address] nausea No 05/29/25 16:10 HEALTH PROMOTION COORDINATOR.[email or web address] Vomiting No 05/29/25 16:10 HEALTH PROMOTION COORDINATOR.RENEEOBKarma Anesthesia Postop Eval I: Fluid Summary Crystalloid volume administer 700 05/29/25 16:10 HEALTH PROMOTION COORDINATOR.SKOBY (ml) Colloids volume administered ( ml) Blood Product volume administered (ml) Total IV fluid infused 700 05/29/25 16:10 HEALTH PROMOTION COORDINATOR.ASHLEY Anesthesia Postop Eval I: Summary Notes Anesthesia Complication No 05/29/25 16:10 HEALTH PROMOTION COORDINATOR.ASHLEY Anesthesia Complication Comment: Post-operative progress note Anesthesia: Postop Eval II Evaluation Mental status: Awake and Calm Pain Level: 2 nausea: No Vomiting: No Complications Anesthesia Complication: No
--- NOTE | 2025-05-29 22:23 | PCM.POSTANE2 ---
Anesthesia Postop Eval I Sum Postop Eval Completion status Anesthesia document: Postop Eval 1 completed: Yes Anesthesia Postop Eval I Summary Anesthesia Postop Eval I Summary: Anesthesia Postop Eval I: Assessment Summary Airway patent Yes 05/29/25 16:10 PEST MANAGEMENT SUPERVISOR.[email or web address] Spontaneous unlabored Yes 05/29/25 16:10 PEST MANAGEMENT SUPERVISOR.ASHLEY respirations Mental status Awake,Calm 05/29/25 16:10 PEST MANAGEMENT SUPERVISOR.[email or web address] nausea No 05/29/25 16:10 PEST MANAGEMENT SUPERVISOR.[email or web address] Vomiting No 05/29/25 16:10 PEST MANAGEMENT SUPERVISOR.RENEEOBKarma Anesthesia Postop Eval I: Fluid Summary Crystalloid volume administer 700 05/29/25 16:10 PEST MANAGEMENT SUPERVISOR.SKOBY (ml) Colloids volume administered ( ml) Blood Product volume administered (ml) Total IV fluid infused 700 05/29/25 16:10 PEST MANAGEMENT SUPERVISOR.ASHLEY Anesthesia Postop Eval I: Summary Notes Anesthesia Complication No 05/29/25 16:10 PEST MANAGEMENT SUPERVISOR.ASHLEY Anesthesia Complication Comment: Post-operative progress note Anesthesia: Postop Eval II Evaluation Mental status: Awake and Calm Pain Level: 2 nausea: No Vomiting: No Complications Anesthesia Complication: No
== END 2025-05-29 16:58 | disposition home or self-care (01) ==
LOC: SDC 11:58 → AC 11:59
PROVIDERS: PCP Registered Nurse; Referring Provider Surgery; Visit Provider Surgery
PROC: (CPT 46080; principal; 2025-05-29 13:15)
DX: K60.1 Chronic anal fissure (principal); E11.9 Type 2 diabetes mellitus without complications; I10 Essential (primary) hypertension; F41.9 Anxiety disorder, unspecified; F32.A Depression, unspecified; Z79.84 Long term (current) use of oral hypoglycemic drugs; Z79.899 Other long term (current) drug therapy
CPT/HCPCS: 46080; 45990; 64430; 00902; 82962; J2405

== ENCOUNTER → 2025-06-01 | Outpatient (CLI) | payer OTHER, SELFPAY ==
--- NOTE | 2025-06-01 10:25 | BI_ITS ---
EXAM: SCRN MAMM (CAD)W/KASSIDY BILAT DATE: 06/01/2025 CLINICAL HISTORY: F, Age 50 y/o , SCREENING TECHNIQUE: Procedure Code: BISMWCADBTOM Modality: MG Procedure: SCRN MAMM (CAD)W/KASSIDY BILAT COMPARISON: Prior exam(s) dated 04/12/2024, 06/22/2023, 06/19/2022. FINDINGS: TISSUE DENSITY: There are scattered areas of fibroglandular density. Bilateral Breast Mammographic Findings: No significant masses, calcifications or other abnormalities are identified. BI/SCRN MAMM (CAD)W/KASSIDY BILAT IMPRESSION: There is no mammographic evidence of malignancy. OVERALL FINAL ASSESSMENT BI-RADS 1: NEGATIVE. RECOMMENDATION: Routine annual follow-up in 1 Year Additional Recommendation none A letter with findings and recommendations will be mailed to the patient. Reading Location: [id number]
== END | disposition home or self-care (01) ==
LOC: OPBI 10:23
PROVIDERS: PCP Registered Nurse; Referring Provider Registered Nurse; Visit Provider Registered Nurse
DX: Z12.31 Encounter for screening mammogram for malignant neoplasm of breast (principal)
CPT/HCPCS: 77063; 77067

== ENCOUNTER 2025-06-06 05:31 | Observation (INO) | payer OTHER, SELFPAY ==
[2025-06-06] VITALS (19 sets, daily range): BP systolic 92–135; BP diastolic 44–76; PULSE 64–95; RESP 15–20; TEMP 36.1–37.1; O2SAT 91–98; BMI 38.7; BMI 38.2
--- NOTE | 2025-06-06 05:50 | CT_ITS ---
PROCEDURE: PELVIS WITH IV CONTRAST 06/06/2025 REASON FOR EXAM: LEFT PERIRECTAL ABSCESS TECHNIQUE: Procedure Code: CTPELW Modality: CT Procedure: PELVIS WITH IV CONTRAST CONTRAST: Isovue 300 VOLUME: 83 mL One or more dose reduction techniques were used (e.g., Automated exposure control, adjustment of the mA and/or kV according to patient size, use of iterative reconstruction technique). RADIATION DOSE SUMMARY: CTDlvol: 22 mGy DLP: 935 mGycm COMPARISON: November 05, 2023 FINDINGS: Bladder: Normal Reproductive Organs: Hysterectomy. No adnexal mass. Ovaries are normal. Bowel: Partially imaged colon and small bowel are unremarkable. The rectum is unremarkable. Immediately caudal to and abutting the anus left posterolaterally (4-6 o'clock in the axial plane) there is an irregular, developing fluid collection with low-density centrally an irregular, thickened wall measuring 4.6 x 3.7 x 2.7 cm. It is located at the medial aspect of the left gluteal fold directly adjacent to the anus. Continuity to the anus is not seen on this exam. MRI with contrast and rectal gel is more sensitive in this regard; consider that examination if the abnormality persists despite treatment. Appendix: Surgically absent Lymph nodes: None appear enlarged. Vasculature: Normal Peritoneum / Retroperitoneum: No free air, free fluid or mass Bones: Unremarkable. CT/Pelvis WITH IV Contrast IMPRESSION: Immediately caudal and abutting the left posterolateral aspect of the anus is a developing abscess. It is seen along the medial aspect of the gluteal fold with dimensions above. See above description. Reading Location: [id number]
[2025-06-06] MEDS: 0.9% Normal Saline (1000mL) 1,000 ML 999 ML IV (05:58)
--- NOTE | 2025-06-06 06:03 | EX.ED.DYSGE1 ---
HPI <Dr. Caden Cabezas DO - Last Filed: 06/06/25 07:18> History of Present Illness Chief Complaint: Wound Check Informant: patient and spouse/S.O. Narrative Narrative: Patient is a 50-year-old female with past medical history of hypertension anxiety and depression and eyn-bmlnnuh-khkimgjhh diabetes. On May 29 she underwent surgery by Dr. Swann for an anal fissure. She states the surgery went well and afterwards she did not experience any type of pain. However after a few days she noticed pain and swelling in the left gluteal region. She then followed up with the general surgeon on June 04. His note at that visit indicates that he felt the area was a small abscess and he was able to express the remaining purulent material. He then started her on clindamycin. Patient states she is taking the clindamycin as directed but has continued to have discharge and reports increased pain and swelling in the region. She denies any true fevers but reports she has had subjective fevers and chills and states her temperature at home was low-grade fever at 99.8. As she feels symptoms are worsening despite seeing the surgeon the other day and taking her antibiotic she presents for evaluation [facility] <Dr. Caden Cabezas DO - Last Filed: 06/06/25 07:18> [facility] Medical History Normal Holter exam Anal fissure Effusion, left knee Diabetes Restless legs Shortness of breath on exertion Leg cramps Cardiology follow-up encounter History of echocardiogram History of stress test Nonrheumatic mitral valve disorder Fatty liver Wears glasses Depression Anxiety Back pain Non-smoker History of edema Hypertension Labral tear of right hip joint Segmental and somatic dysfunction of pelvic region Segmental and somatic dysfunction of lumbar region Segmental and somatic dysfunction of thoracic region Segmental and somatic dysfunction of cervical region Home Medications ?Medication ?Instructions ?Recorded ?Last Taken ?Type sertraline 100 mg tablet 100 mg PO QHS mental health 08/30/17 05/28/25 History lisinopril 10 mg tablet 10 mg PO QHS blood pressure 12/14/17 05/28/25 History metformin 500 mg tablet,extended 500 mg PO BID 11/29/23 05/28/25 History release 24 hr vitamin E (dl, acetate) 180 mg 180 mg PO BID #60 caps 06/06/24 Unknown Rx (400 unit) capsule Diltiazem 2% / Lidocaine 5% #1 ea 11/09/24 Unknown Rx ointment (compound) (Diltiazem 2%/Lidocaine 5% ointment (compound)) Hydrocortisone 2.5%/lidocaine 5% #42 ea 11/10/24 Unknown Rx suppository (cmpd) cholecalciferol (vitamin D3) 125 125 mcg PO DAILY 03/07/25 Unknown History mcg (5,000 unit) tablet (Vitamin D3) magnesium 250 mg tablet 250 mg PO DAILY 03/07/25 Unknown History tirzepatide 2.5 mg/0.5 mL 2.5 mg subcut STERN 05/25/25 05/20/25 History subcutaneous pen injector (Mounjaro) clindamycin HCl 300 mg capsule 300 mg PO TID 7 days #21 caps 06/04/25 Unknown Rx (Cleocin HCl) fluconazole 150 mg tablet 150 mg PO QDAY 7 days #7 tabs 06/04/25 Unknown Rx Allergy/AdvReac Type Severity Reaction Status Date / Time latex Allergy Swelling, Verified 06/06/25 05:31 itching Penicillins (PCN) Allergy other Verified 06/06/25 05:31 Sulfa (Sulfonamide Allergy Hives, Verified 06/06/25 05:31 Antibiotics) welts Family History Mother Hypertension Thyroid disorder Depression Rheumatoid arthritis Grandmother Parkinsons disease Surgical History Hx of knee surgery Hx of cystoscopy History of adenoidectomy History of laparoscopic appendectomy (~09/03/21) History of History of lithotripsy History of tonsillectomy History of colonoscopy (~2015) History of hysterectomy (~2011) History of cholecystectomy (~2001) Social History household members: spouse and children housing: house number of children: 3 current occupational status: employed pets and animals: Yes Smoking Status: Never smoker alcohol intake: never substance use type: does not use caffeine: Yes (occasional) what type of physical activity do you participate in: none seatbelt use: always do you feel safe at home: Yes ROS <Dr. Caden Cabezas DO - Last Filed: 06/06/25 07:18> ROS ED Constitutional Constitutional ED: Reports chills, fever(s) and subjective ENT ENT ED: Denies sore throat Cardiovascular Cardiovascular: Denies chest pain Respiratory/Chest Respiratory/Chest: Denies cough or dyspnea Gastrointestinal Gastrointestinal: Reports other Details: Positive rectal pain and rectal discharge ; Denies abdominal pain, diarrhea, nausea or vomiting Genitourinary Genitourinary ED: Denies dysuria Musculoskeletal Musculoskeletal: Denies myalgias Integumentary Denies rash Neurologic Neurologic: Denies headache(s) Psychiatric Psychiatric: Reports anxiety Hematologic/Lymphatic Hematologic/Lymphatic: Denies easy bleeding or easy bruising EXAM <Dr. Caden Cabezas DO - Last Filed: 06/06/25 07:18> Physical Exam Const Vital Signs: 06/06/25 05:31 06/06/25 05:47 06/06/25 07:31 Temperature 98.2 F 98.2 F 98.7 F Temperature Source Oral Oral Oral Pulse Rate 95 95 82 Respiratory Rate 18 18 16 Blood Pressure 135/65 H 135/65 H 122/76 H Blood Pressure Mean 88 88 91 Pulse Ox 96 96 95 Oxygen Delivery Method Room Air Room Air Room Air Positive well nourished, well developed and obese General Appearance ED: well developed Nutritional Appearance: obese HEENT HEENT Narrative: Normocephalic atraumatic Eyes PERRL and EOMs intact bilaterally General Eye ED: Negative for scleral icterus Neck supple Neck Narrative: No nuchal rigidity or meningeal signs Resp normal respiratory effort and clear to auscultation bilaterally Cardio regular rate and regular rhythm Narrative: Rectal exam shows erythema and warmth with a 2 x 2 cm area of induration with pustule present located along the left lateral portion of the rectum/gluteal cleft at approximately the 9 o'clock position. There is purulent discharge present No lymphangitic streaking or crepitance noted Extremity normal to inspection Neuro oriented x3, CN's II-XII intact bilaterally and no sensory deficits noted Sensorium / Orientation: alert Motor Exam: strength 5/5 throughout Psych Mood & Affect: anxious and tearful Skin Skin Narrative: Soft tissue changes along the left lateral portion of the rectum and gluteal cleft as documented above <Dr. Uriel Jolley MD - Last Filed: 06/06/25 08:05> Physical Exam Const Vital Signs: 06/06/25 05:31 06/06/25 05:47 06/06/25 07:31 Temperature 98.2 F 98.2 F 98.7 F Temperature Source Oral Oral Oral Pulse Rate 95 95 82 Respiratory Rate 18 18 16 Blood Pressure 135/65 H 135/65 H 122/76 H Blood Pressure Mean 88 88 91 Pulse Ox 96 96 95 Oxygen Delivery Method Room Air Room Air Room Air [facility] <Dr. Caden Cabezas DO - Last Filed: 06/06/25 07:18> [facility] Narrative Medical decision making narrative: Patient arrived to the ER with stable vitals. She reports that she was doing well initially after surgery and only a few days later did she develop increased pain and swelling. Moreover the general surgeons outpatient note was reviewed and he does feel based on her exam that this was an abscess. However at the time when he was able to express the remaining discharge and placed on antibiotics he felt it would improve with that intervention. However as the patient reports return of swelling and pain as well as subjective fevers and chills there is concern for systemic infection or further progression of the abscess infection. Therefore I elected to perform basic laboratory studies to assess for leukocytosis lactic acidosis and left shift. The case was discussed with the general surgeon Dr. Swann. He also recommends obtaining a CT scan of the pelvis with IV contrast to assess the size of the abscess. The patient was treated with IV fluid as well as morphine Zofran and Ativan. Her physical exam and vitals do not suggest signs of sepsis and therefore I feel no need for blood cultures or IV antibiotics at this time. Patient's labs show that her white count and neutrophil count are just slightly elevated and her lactic acid is normal. These values as well as her vital signs would indicate there are no signs of systemic infection/sepsis and the infection is indeed a localized abscess. CT scan of the abdomen and pelvis revealed a 4.6 x 3.7 x 2.7 cm area of fluctuance consistent with abscess. The case was then rediscussed with general surgeon Dr. Swann he will come to the ER to evaluate the patient to discuss bedside his incision and drainage versus operating room incision and drainage. As her disposition is still pending she will be signed out to the day physician Dr. Jolley History & Record Review Discussion w/independent historian: Patient and Significant other Additional record(s) reviewed:: Prior outpatient record Lab Data Attestation: I reviewed the patient's lab results. Labs: Laboratory Results - last 24 hr 06/06/25 05:56 WBC 11.3 H RBC 4.80 Hgb 14.0 Hct 40.9 MCV 85.2 MCH 29.2 MCHC 34.2 RDW Std Deviation 35.9 RDW Coeff of Karla 11.7 Plt Count 303 MPV 9.4 Immature Gran % (Auto) 0.500 Neut % (Auto) 75.2 H Lymph % (Auto) 14.3 L [place] % (Auto) 7.7 Eos % (Auto) 1.9 Baso % (Auto) 0.4 Absolute Neuts (auto) 8.5 H Absolute Lymphs (auto) 1.62 Nucleated RBC % 0 Sodium 137 Potassium 4.6 Chloride 101 Carbon Dioxide 23.7 Anion Gap 12 BUN 19 Creatinine 0.87 Estim Creat Clear Calc 96.60 Est GFR (MDRD) Non-Af 81 BUN/Creatinine Ratio 21.5 H Glucose 148 H Lactic Acid 1.4 Calcium 9.8 Radiography Diagnostic Testing: Clinical Impression(s) from Imaging Studies Pelvis CT 06/06/25 05:50 IMPRESSION: Immediately caudal and abutting the left posterolateral aspect of the anus is a developing abscess. It is seen along the medial aspect of the gluteal fold with dimensions above. See above description. Reading Location: [id number] <Dr. Ureil Jolley MD - Last Filed: 06/06/25 08:05> [facility] Lab Data Labs: Laboratory Results - last 24 hr 06/06/25 05:56 WBC 11.3 H RBC 4.80 Hgb 14.0 Hct 40.9 MCV 85.2 MCH 29.2 MCHC 34.2 RDW Std Deviation 35.9 RDW Coeff of Karla 11.7 Plt Count 303 MPV 9.4 Immature Gran % (Auto) 0.500 Neut % (Auto) 75.2 H Lymph % (Auto) 14.3 L [place] % (Auto) 7.7 Eos % (Auto) 1.9 Baso % (Auto) 0.4 Absolute Neuts (auto) 8.5 H Absolute Lymphs (auto) 1.62 Nucleated RBC % 0 Sodium 137 Potassium 4.6 Chloride 101 Carbon Dioxide 23.7 Anion Gap 12 BUN 19 Creatinine 0.87 Estim Creat Clear Calc 96.60 Est GFR (MDRD) Non-Af 81 BUN/Creatinine Ratio 21.5 H Glucose 148 H Lactic Acid 1.4 Calcium 9.8 Radiography Diagnostic Testing: Clinical Impression(s) from Imaging Studies Pelvis CT 06/06/25 05:50 IMPRESSION: Immediately caudal and abutting the left posterolateral aspect of the anus is a developing abscess. It is seen along the medial aspect of the gluteal fold with dimensions above. See above description. Reading Location: [id number] Treatment and Re-Evaluation :: CT of the pelvis was reviewed. Dr. Kvng Swann was notified. He will be in to see patient to determine if patient can be drained in the emergency department versus formally in the OR. Patient was made aware of this. She is complaining of pain. Will treat her pain with Dilaudid. Plan is to take patient to the OR. Discharge Plan Dx/Rx/DC Orders Clinical Impression: Perirectal abscess, Essential hypertension, Non-insulin dependent diabetes mellitus, Anal fissure Disposition Disposition: Acute Care [facility]
[2025-06-06 06:05] LABS: Hematocrit 40.9 % (37-47); Hemoglobin 14.0 g/dL (12.0-15.0); Immature Granulocytes Count 0.060 X10^3/uL (0.0-0.0); Mean Corp Hgb Conc 34.2 g/dL (32-36); Mean Corpuscular Volume 85.2 fL (81-99); Mean Platelet Vol. 9.4 fl (6.2-12.0); NRBC Flagged by Analyzer 0 % (0-5); Platelet Count 303 K/mm3 (150-450); RBC Distribution Width CV 11.7 % (11.6-14.6); RBC Distribution Width SD 35.9 fl (35.1-43.9); Red Blood Count 4.80 M/mm3 (4.2-5.4); White Blood Count 11.3 K/mm3 (4.4-11.0)
[2025-06-06 06:28] LABS: Anion Gap 12 (5-15); BUN 19 mg/dL (4-19); BUN/Creat Ratio 21.5 RATIO (10-20); Calcium,Total 9.8 mg/dL (7.6-11.0); Carbon Dioxide 23.7 mmol/L (21.0-32.0); Chloride 101 mmol/L (98-108); Estimated Creatinine Clearance 96.60 ml/min (50-250); Glucose 148 mg/dL (70-99); Potassium 4.6 mmol/L (3.3-5.1)
[2025-06-06] MEDS: HYDROmorphone 0.5 MG/0.5 ML SYRINGE IV (07:43)
[2025-06-06] MEDS: 0.9% Normal Saline (1000mL) 1,000 ML 100 ML IV (09:18)
[2025-06-06] MEDS: Clindamycin 300 MG in Dextrose 5%-Water (50mL Bag) 50 ML 150 MG IV ×3 (09:19→17:47)
[2025-06-06] MEDS: 0.9% Saline Lock 10 ML Syringe IV (09:22)
--- NOTE | 2025-06-06 09:56 | EKG12_ITS ---
Test Reason : PRE-OP Blood Pressure : */* mmHG Vent. Rate : 72 BPM Atrial Rate : 72 BPM P-R Int : 160 ms QRS Dur : 100 ms QT Int : 378 ms P-R-T Axes : 31 38 5 degrees QTcB Int : 413 ms Normal sinus rhythm Normal ECG When compared with ECG of 08-Mar-2025 10:29, No significant change was found Confirmed by THUY HILLIARD, ANGELA ([id number]), food editor CAROLINA FRANCISCO ([id number]) on 06/07/2025 5:48:07 AM Referred By: KACI Confirmed By: ANGELA DALEY MD
--- NOTE | 2025-06-06 10:48 | PCM.HP.STD ---
HPI - General General Date of Admission: 06/06/25 Date of Service: 06/06/25 Chief Complaint: Perirectal abscess HPI Narrative CHRISTIN BABB, is a 50 F who underwent a lateral internal sphincterotomy performed by me about a week ago for a very symptomatic chronic anal fissure. Her surgery was uneventful and she did well initially. She contacted our office on Wednesday stating that she had some pain and some drainage over the weekend. I suspected that she may have developed a small wound infection. I did place her on antibiotics and recommend that she contact my office if this did not improve. She presented to the emergency department overnight with worsening pain and subjective fevers and chills. Clinically the ER staff appreciated an abscess. I was contacted and recommended a CT scan for further evaluation. CT scan showed a 4.7 x 2.5 cm abscess. I recommended admission and intraoperative drainage. FORMERLY [facility] Medical History Normal Holter exam Anal fissure Effusion, left knee Diabetes Restless legs Shortness of breath on exertion Leg cramps Cardiology follow-up encounter History of echocardiogram History of stress test Nonrheumatic mitral valve disorder Fatty liver Wears glasses Depression Anxiety Back pain Non-smoker History of edema Hypertension Labral tear of right hip joint Segmental and somatic dysfunction of pelvic region Segmental and somatic dysfunction of lumbar region Segmental and somatic dysfunction of thoracic region Segmental and somatic dysfunction of cervical region Home Medications ?Medication ?Instructions ?Recorded ?Last Taken ?Type sertraline 100 mg tablet 100 mg PO QHS mental health 08/30/17 05/28/25 History lisinopril 10 mg tablet 10 mg PO QHS blood pressure 12/14/17 05/28/25 History metformin 500 mg tablet,extended 500 mg PO BID 11/29/23 05/28/25 History release 24 hr vitamin E (dl, acetate) 180 mg 180 mg PO BID #60 caps 06/06/24 Unknown Rx (400 unit) capsule Diltiazem 2% / Lidocaine 5% #1 ea 11/09/24 Unknown Rx ointment (compound) (Diltiazem 2%/Lidocaine 5% ointment (compound)) Hydrocortisone 2.5%/lidocaine 5% #42 ea 11/10/24 Unknown Rx suppository (cmpd) cholecalciferol (vitamin D3) 125 125 mcg PO DAILY 03/07/25 Unknown History mcg (5,000 unit) tablet (Vitamin D3) magnesium 250 mg tablet 250 mg PO DAILY 03/07/25 Unknown History clindamycin HCl 300 mg capsule 300 mg PO TID 7 days #21 caps 06/04/25 Unknown Rx (Cleocin HCl) Allergy/AdvReac Type Severity Reaction Status Date / Time latex Allergy Swelling, Verified 06/06/25 05:31 itching Penicillins (PCN) Allergy other Verified 06/06/25 05:31 Sulfa (Sulfonamide Allergy Hives, Verified 06/06/25 05:31 Antibiotics) welts Family History Mother Hypertension Thyroid disorder Depression Rheumatoid arthritis Grandmother Parkinsons disease Surgical History Hx of knee surgery Hx of cystoscopy History of adenoidectomy History of laparoscopic appendectomy (~09/03/21) History of History of lithotripsy History of tonsillectomy History of colonoscopy (~2015) History of hysterectomy (~2011) History of cholecystectomy (~2001) Social History household members: spouse and children housing: house number of children: 3 current occupational status: employed pets and animals: Yes Smoking Status: Never smoker alcohol intake: never substance use type: does not use caffeine: Yes (occasional) what type of physical activity do you participate in: none seatbelt use: always do you feel safe at home: Yes Vital Signs Vital Signs Vital Signs: 06/06/25 05:31 06/06/25 05:47 06/06/25 07:31 Temperature 98.2 F 98.2 F 98.7 F Temperature Source Oral Oral Oral Pulse Rate 95 95 82 Pulse Strength Respiratory Rate 18 18 16 Respiratory Effort Respiratory Depth Respiratory Pattern Blood Pressure 135/65 H 135/65 H 122/76 H Blood Pressure Mean 88 88 91 Blood Pressure Source Blood Pressure Position Blood Pressure Location Pulse Ox 96 96 95 Oxygen Delivery Method Room Air Room Air Room Air 06/06/25 08:29 06/06/25 09:04 06/06/25 09:04 Temperature 98.1 F Temperature Source Pulse Rate 75 Pulse Strength Normal (2+) Respiratory Rate 16 Respiratory Effort Normal Respiratory Depth Normal Respiratory Pattern Normal Blood Pressure 116/64 Blood Pressure Mean 81 Blood Pressure Source Blood Pressure Position Blood Pressure Location Pulse Ox 94 Oxygen Delivery Method Room Air 06/06/25 09:04 Temperature 98.7 F Temperature Source Oral Pulse Rate 81 Pulse Strength Respiratory Rate 16 Respiratory Effort Respiratory Depth Respiratory Pattern Blood Pressure 115/62 Blood Pressure Mean 79 Blood Pressure Source Monitor Blood Pressure Position Semi-Fowlers Blood Pressure Location Left Arm Pulse Ox 98 Oxygen Delivery Method Room Air Weight Weight: 237 lb Body Mass Index (BMI) 38.2 Physical Exam Const alert, oriented x3 and healthy appearing General Appearance: cooperative HEENT normocephalic Eyes PERRL GI GI Narrative: Examination of the perianal area clearly exhibits findings consistent with a abscess. This was a significant change compared to her office exam on Wednesday. There was some purulent drainage present. There was tenderness to palpation. Results Lab / Micro Data 06/06/25 05:56 06/06/25 05:56 Labs: Laboratory Results - last 24 hr 06/06/25 05:56: WBC 11.3 H, RBC 4.80, Hgb 14.0, Hct 40.9, MCV 85.2, MCH 29.2, MCHC 34.2, RDW Std Deviation 35.9, RDW Coeff of Karla 11.7, Plt Count 303, MPV 9.4, Immature Gran % (Auto) 0.500, Neut % (Auto) 75.2 H, Lymph % (Auto) 14.3 L, [place] % (Auto) 7.7, Eos % (Auto) 1.9, Baso % (Auto) 0.4, Absolute Neuts (auto) 8.5 H, Absolute Lymphs (auto) 1.62, Nucleated RBC % 0, Sodium 137, Potassium 4.6, Chloride 101, Carbon Dioxide 23.7, Anion Gap 12, BUN 19, Creatinine 0.87, Estim Creat Clear Calc 96.60, Est GFR (MDRD) Non-Af 81, BUN/Creatinine Ratio 21.5 H, Glucose 148 H, Lactic Acid 1.4, Calcium 9.8 Imaging Radiology Impression Pelvis CT 06/06/25 05:50 IMPRESSION: Immediately caudal and abutting the left posterolateral aspect of the anus is a developing abscess. It is seen along the medial aspect of the gluteal fold with dimensions above. See above description. Reading Location: [id number] Assessment & Plan Assessment/Plan (1) Perirectal abscess: PLAN: Plan The patient is a 50-year-old female status post a recent lateral internal sphincterotomy surgery for a chronic anal fissure. Unfortunately she has developed a perirectal abscess/wound infection. I have recommended admission and operative drainage. She is in agreement with this plan. We discussed the details of the planned procedure and she wishes to proceed. This will occur sometime this afternoon once an OR becomes available
--- NOTE | 2025-06-06 11:57 | NURSING ---
pt to surgery
[2025-06-06] MEDS: Lactated Ringers 1,000 ML 15 ML IV (12:06)
--- NOTE | 2025-06-06 12:20 | PCM.PRE.AN2 ---
ASA Classification* ASA Classification ASA Classification: E Assessment & Plan Anesthesia* Anesthesia Assessment Anesthesia Assessment: Discussed sedation and/or anesthesia options, risks, benefits, and alternatives with patient/parents/legal guardian/POA. Questions invited. The patient/parents/legal guardian/POA seems to understand and agrees to proceed with anesthesia plan. Reviewed the physical assessment, medical history, allergy history and patient home medications list prior to surgery/procedure/anesthetic and documented any changes. Performed airway and anesthesia risk assessments. Anesthesia Type Anesthesia Type: General History Source History Obtained from:: Patient and Chart Anesthesia Focused Assessment* Temperature: 98.5 F Pulse Rate: 65 Blood Pressure: 104/60 Respiratory Rate: 16 Pulse Ox: 93 Oxygen Delivery Method: Room Air Airway Assessment Mouth opens: >3 cm Mallampati Score: II Teeth Condition: Intact Neck Range of motion (ROM): Full ROM Labs Anesthesia Preop lab: CBC WBC, (4.4-11.0) 11.3 K/mm3 H Today, 05:56 RBC, (4.2-5.4) 4.80 M/mm3 Today, 05:56 Hgb, (12.0-15.0) 14.0 g/dL Today, 05:56 Hct, (37-47) 40.9 % Today, 05:56 Plt Count, (150-450) 303 K/mm3 Today, 05:56 CHEMISTRY Potassium, (3.3-5.1) 4.6 mmol/L Today, 05:56 Sodium, (133-145) 137 mmol/L Today, 05:56 Magnesium, (1.6-2.6) 1.7 mg/dL 03/24/22, 15:40 Phosphorus, (2.7-4.5) 3.8 mg/dL 03/09/25, 08:42 BUN, (4-19) 19 mg/dL Today, 05:56 Creatinine, (0.70-1.20) 0.87 mg/dL Today, 05:56 Glucose, (70-99) 148 mg/dL H Today, 05:56 POC Glucose, (74-106) 108 mg/dL H 05/29/25, 12:24 TSH, (0.358-3.740) 1.400 uIU/mL 04/26/24, 08:27 COAG PT, (11.7-14.9) 13.4 SECONDS 08/04/19, 13:54 Pre-Assessment Diagnosis/Proposed Procedure Planned Operative Procedure(s): Incision and drainage of perirectal abscess 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 - office clinician: 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 - office clinician Hx Hospitalization No 05/28/25 08:28 Any Problems With Anesthesia Yes: nausea 06/06/25 09:01 Cholinesterase deficiency No 06/06/25 09:01 You/Your Family Experience No 06/06/25 09:01 fever (hyperthermia) with Relationship Recent Exposure to Contagious No 06/06/25 09:01 Disease Does patient have nerve No 06/06/25 09:01 stimulator Patient instructed to have No 06/06/25 09:01 device shut off --Does patient have Pacemaker No 06/06/25 09:48 or ICD? When Was Last Pacemaker Check QUESTION #4 FULL TEXT: You/Your Family Experience fever (hyperthermia) with Anesthesia Last Oral Intake Last Oral intake: Last Oral Intake NPO since 00:00 06/06/25 09:48 Meds taken in AM with sips of No 06/06/25 09:48 water? Meds patient instructed to take am of surgery PONV PONV - office clinician: PONV - office clinician Female HX of Motion Sickness HX of N/V After Surgery Non-Smoker Duration of Surgery greater than 60 minutes Number of Risk Factors PONV Score Height & Weight Height & Weight: Anesthesia: Height & Weight Height 5 ft 6 in 06/06/25 09:48 Weight: 107.501 kg 06/06/25 09:48 Body Mass Index (BMI) 38.2 06/06/25 09:48 Respiratory Assessment Respiratory Assessment - office clinician: Respiratory Tract Infection Hx - office clinician Hx Respiratory Tract Infection No 06/06/25 09:01 STOP Sleep Apnea STOP Sleep Apnea - office clinician: STOP Sleep Apnea - office clinician Hx Hypertension Yes 06/06/25 08:54 Hx Sleep Apnea No 06/06/25 08:54 CPAP No 06/06/25 08:54 BIPAP No 06/06/25 08:54 Do you snore loudly (louder No 06/06/25 08:54 than talking or can be heard Do you often feel tired/ No 06/06/25 08:54 fatigued/ sleepy during daytime? Has anyone observed you stop No 06/06/25 08:54 breathing during sleep? STOP Results Negative 06/06/25 08:54 QUESTION #5 FULL TEXT : Do you snore loudly (louder than talking or can be heard through closed doors)? Tobacco Use History Tobacco Use History - office clinician: Tobacco Use History - office clinician Tobacco Use Smoking Status Never smoker 06/06/25 08:54 Hx Tobacco Use No 06/06/25 08:54 Years Smoking Packs Smoked per Day Smoking Cessation Date was within the last 15 years Hx Smoking Cessation Date Hx Smoking Cessation Counseling Hematologic Medial History Hematologic Hx - office clinician: Hematologic Medical Hx - customer energy specialist Hx of Blood Transfusion No 06/06/25 08:54 Hx of Transfusion in last 3 No 06/06/25 08:54 Months Date of Last Transfusion (if within last 3 months) Ever experience any problems No 06/06/25 08:54 with transfusion(s)? Specify any problems Hx of Preganancy in last 3 N/A 06/06/25 08:54 Months Nurse Filling Out Transfusion TWOLF 06/06/25 08:54 & Questions: Date: 06/06/25 06/06/25 08:54 Time: 08:57 06/06/25 08:54 Patient unable to answer at this time (ie. confused, unrespo /Reproduction History /Reproductive History - office clinician: /Reproductive Hx- office clinician Hx Now No 06/06/25 09:01 Gestational Age (in weeks): EDC: Hx Hx Para Hx Section SAB No 06/06/25 09:01 Active Medications Active Medications: Current Medications Generic Name Dose Route Start Last Admin Trade Name Freq PRN Reason Stop Dose Admin Acetaminophen 1,000 mg 06/06/25 14:00 Acetaminophen 500 Mg Tablet PO Q8 HAROON Sodium Chloride 1,000 mls @ 100 mls/hr 06/06/25 08:43 06/06/25 11:58 IV 0 mls/hr .Q10H HAROON Infusion Clindamycin Phosphate 300 mg/ 52 mls @ 150 mls/hr 06/06/25 09:00 06/06/25 09:44 Dextrose IV Infused Q6 HAROON Infusion Sodium Chloride 250 mls @ 15 mls/hr 06/06/25 09:00 IV .[id number] PRN Saline Flush Sodium Chloride 250 mls @ 15 mls/hr 06/06/25 09:00 IV .[id number] PRN Additional IVPB Infusion Lactated Ringer's 1,000 mls @ 15 mls/hr 06/06/25 11:45 06/06/25 12:06 IV 15 mls/hr .Q48H HAROON Administration Morphine Sulfate 2 - 4 mg 06/06/25 08:43 06/06/25 09:18 Morphine 2 Mg/Ml Syringe IV 2 mg Q3H PRN PRN Administration Pain Score 6-10 Ondansetron HCl 4 mg 06/06/25 08:43 Ondansetron 4 Mg/2 Ml Vial IV Q8H PRN PRN NAUSEA/VOMITING Oxycodone HCl 5 mg 06/06/25 08:43 Oxycodone 5 Mg Tablet PO Q4H PRN PRN Pain Score 4-10 Sodium Chloride 10 - 40 ml 06/06/25 09:00 06/06/25 09:22 0.9% Saline Lock 10 Ml Syringe IV 10 ml UD PRN Administration SALINE FLUSH PFSH Medical History Normal Holter exam Anal fissure Effusion, left knee Diabetes Restless legs Shortness of breath on exertion Leg cramps Cardiology follow-up encounter History of echocardiogram History of stress test Nonrheumatic mitral valve disorder Fatty liver Wears glasses Depression Anxiety Back pain Non-smoker History of edema Hypertension Labral tear of right hip joint Segmental and somatic dysfunction of pelvic region Segmental and somatic dysfunction of lumbar region Segmental and somatic dysfunction of thoracic region Segmental and somatic dysfunction of cervical region Home Medications ?Medication ?Instructions ?Recorded ?Last Taken ?Type sertraline 100 mg tablet 100 mg PO QHS mental health 08/30/17 05/28/25 History lisinopril 10 mg tablet 10 mg PO QHS blood pressure 12/14/17 05/28/25 History metformin 500 mg tablet,extended 500 mg PO BID 11/29/23 05/28/25 History release 24 hr vitamin E (dl, acetate) 180 mg 180 mg PO BID #60 caps 06/06/24 Unknown Rx (400 unit) capsule Diltiazem 2% / Lidocaine 5% #1 ea 11/09/24 Unknown Rx ointment (compound) (Diltiazem 2%/Lidocaine 5% ointment (compound)) Hydrocortisone 2.5%/lidocaine 5% #42 ea 11/10/24 Unknown Rx suppository (cmpd) cholecalciferol (vitamin D3) 125 125 mcg PO DAILY 03/07/25 Unknown History mcg (5,000 unit) tablet (Vitamin D3) magnesium 250 mg tablet 250 mg PO DAILY 03/07/25 Unknown History clindamycin HCl 300 mg capsule 300 mg PO TID 7 days #21 caps 06/04/25 Unknown Rx (Cleocin HCl) Allergy/AdvReac Type Severity Reaction Status Date / Time latex Allergy Swelling, Verified 06/06/25 05:31 itching Penicillins (PCN) Allergy other Verified 06/06/25 05:31 Sulfa (Sulfonamide Allergy Hives, Verified 06/06/25 05:31 Antibiotics) welts Family History Mother Hypertension Thyroid disorder Depression Rheumatoid arthritis Grandmother Parkinsons disease Surgical History Hx of knee surgery Hx of cystoscopy History of adenoidectomy History of laparoscopic appendectomy (~09/03/21) History of History of lithotripsy History of tonsillectomy History of colonoscopy (~2015) History of hysterectomy (~2011) History of cholecystectomy (~2001) Social History household members: spouse and children housing: house number of children: 3 current occupational status: employed pets and animals: Yes Smoking Status: Never smoker alcohol intake: never substance use type: does not use caffeine: Yes (occasional) what type of physical activity do you participate in: none seatbelt use: always do you feel safe at home: Yes Review of Systems (Anesthesia) ROS Narrative System reviewed and no additional complaints, except as documented.
[2025-06-06] MEDS: Midazolam 2 MG/2 ML Syringe IV (13:14)
[2025-06-06] MEDS: fentaNYL 100 MCG/2 ML Ampul IV (13:20)
[2025-06-06] MEDS: Lidocaine 1% (5 ml sdv) 5 ML Vial IV (13:20)
[2025-06-06] MEDS: Bupiv/Epi 0.25% 30 ML Vial (13:53)
--- NOTE | 2025-06-06 14:04 | PCM.POST.ANE ---
Anesthesia: Postop Eval I Current Vital Signs Temperature: 98.3 F Pulse Rate: 84 Blood Pressure: 129/74 Respiratory Rate: 20 Pulse Ox: 97 Oxygen Delivery Method: Room Air Assessment Airway patent: Yes Spontaneous unlabored respirations: Yes Mental status: Awake and Calm nausea: No Vomiting: No Anesthesia Complication: No Fluid Hydration Crystalloid volume administer (ml): 600 Total IV fluid infused: 600 Progress Note Anesthesia document: Postop Eval 1 completed: Yes
--- NOTE | 2025-06-06 14:04 | PCM.OPRPT ---
Procedures Digestive 40xxx-49xxx: [id number] Incision of rectal abscess Operative Report (Standard) Operative Information Date of Procedure: 06/06/25 Pre-Operative Diagnosis: left side perirectal abscess Post-Operative Diagnosis: Same Surgery/Procedure Performed: Incision and drainage of left sided perirectal abscess public administration professor: No Type of Anesthesia: General and Local RN Documented Start/Stop Times: Operation Date: 06/06/25 13:00 Case Time Into Pre-Op 06/06/25 11:40 Anesthesia Start 06/06/25 13:13 Into Room 06/06/25 13:13 Procedure Start 06/06/25 13:33 Procedure End 06/06/25 13:56 Anesthesia End 06/06/25 13:59 Out of Room 06/06/25 13:59 Procedure Start Time: 13:33 Procedure Stop Time: 13:56 Select all DRAINS/GRAFTS/IMPLANTS that apply: Drains Drain details: Half-inch iodoform gauze packed into wound Estimated Blood Loss: 15 mL Specimen collected: No Description of surgery: The patient is a 50-year-old female status post a recent 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 This was performed about a week ago. She initially was doing well following the surgery but then developed pain as well as some fevers and chills. I saw the patient in the office on Wednesday she had a small amount of purulent tinged drainage but no obvious abscess was appreciated at that time. I placed her on antibiotics and recommend that she contact me should this not improve. She presented to the emergency department overnight with pain. I had the ER staff do a CT scan for further evaluation. A 4 cm abscess was encountered. I saw the patient the emergency department and recommended drainage in the operating room. We discussed the details of the planned procedure and she wished to proceed. She was brought to the operating room today following informed consent. Preoperative antibiotics were given and a timeout was performed. She was placed supine spine on the operative table with legs placed in a modified lithotomy position after general anesthesia was induced. The area was then prepped and draped in the usual sterile manner. Local anesthetic was injected into the vicinity. The abscess was already draining somewhat through the skin. This was injected with local anesthetic and then a 15 blade was then used to make a cruciate incision. Upon doing so, copious amount of purulent drainage was able to be expressed. This was suctioned out. The abscess cavity was manually deloculated. The abscess cavity was then copiously irrigated with saline. Hemostasis was very good. The wound was then packed with half-inch iodoform gauze.. Local anesthetic was then injected in a bilateral pudendal block manner. A gauze dressing and mesh panties were applied. She was awake from anesthesia and taken to recovery in good condition Surgical Findings: Left-sided perirectal abscess Complications Complications: No Admit VTE Documentation VTE Present on Admission: No VTE Mechan Device Prophylaxis: SCD's VTE Pharm Prophylaxis ordered?: No Reason prophylaxis not ordered: Treatment Not Indicated
--- NOTE | 2025-06-06 15:13 | POSTOPAN2_ITS ---
Anesthesia Postop Eval I Sum Postop Eval Completion status Anesthesia document: Postop Eval 1 completed: Yes Anesthesia Postop Eval I Summary Anesthesia Postop Eval I Summary: Anesthesia Postop Eval I: Assessment Summary Airway patent Yes 06/06/25 14:05 [email or web address] Spontaneous unlabored Yes 06/06/25 14:05 BODY [email or web address] respirations Mental status Awake,Calm 06/06/25 14:05 [email or web address] nausea No 06/06/25 14:05 [email or web address] Vomiting No 06/06/25 14:05 [email or web address] Anesthesia Postop Eval I: Fluid Summary Crystalloid volume administer 600 06/06/25 14:05 [email or web address] (ml) Colloids volume administered ( ml) Blood Product volume administered (ml) Total IV fluid infused 600 06/06/25 14:05 [email or web address] Anesthesia Postop Eval I: Summary Notes Anesthesia Complication No 06/06/25 14:05 [email or web address] Anesthesia Complication Comment: Post-operative progress note Anesthesia: Postop Eval II Evaluation Mental status: Awake and Calm Pain Level: 1 nausea: No Vomiting: No Complications Anesthesia Complication: No
--- NOTE | 2025-06-06 15:13 | PCM.POSTANE2 ---
Anesthesia Postop Eval I Sum Postop Eval Completion status Anesthesia document: Postop Eval 1 completed: Yes Anesthesia Postop Eval I Summary Anesthesia Postop Eval I Summary: Anesthesia Postop Eval I: Assessment Summary Airway patent Yes 06/06/25 14:05 [email or web address] Spontaneous unlabored Yes 06/06/25 14:05 [email or web address] respirations Mental status Awake,Calm 06/06/25 14:05 [email or web address] nausea No 06/06/25 14:05 [email or web address] Vomiting No 06/06/25 14:05 [email or web address] Anesthesia Postop Eval I: Fluid Summary Crystalloid volume administer 600 06/06/25 14:05 [email or web address] (ml) Colloids volume administered ( ml) Blood Product volume administered (ml) Total IV fluid infused 600 06/06/25 14:05 [email or web address] Anesthesia Postop Eval I: Summary Notes Anesthesia Complication No 06/06/25 14:05 [email or web address] Anesthesia Complication Comment: Post-operative progress note Anesthesia: Postop Eval II Evaluation Mental status: Awake and Calm Pain Level: 1 nausea: No Vomiting: No Complications Anesthesia Complication: No
[2025-06-07] MEDS: 0.9% Normal Saline (1000mL) 1,000 ML 100 ML IV (00:08)
[2025-06-07] MEDS: Clindamycin 300 MG in Dextrose 5%-Water (50mL Bag) 50 ML 150 MG IV ×2 (00:29→05:57)
[2025-06-07 05:00] VITALS: BP 99/50; PULSE 65; RESP 15; TEMP 37.2; O2SAT 98
--- NOTE | 2025-06-07 07:35 | PCM.PN.SRG ---
Subjective Subjective Patient tolerating diet. Pain controlled. Objective Data Objective Data Vital Signs: Vital Signs Temp Pulse Resp BP Pulse Ox O2 Del Method O2 Flow Rate 98.9 F 65 15 99/50 L 98 Room Air 2 06/07/25 05:00 06/07/25 05:00 06/07/25 05:00 06/07/25 05:00 06/07/25 05:00 06/07/25 05:00 06/06/25 15:15 Oxygen Flow Rate (L/min) 2 Oxygen Delivery Method Room Air Weight: 237 lb Body Mass Index (BMI) 38.2 Intake & Output: Intake and Output for Last 24 Hours 06/05/25 06/06/25 06/07/25 23:59 23:59 23:59 Intake Total 3077.34 / 3377.34 880.66 / 880.66 Output Total 15 Balance 3062.34 / 3362.34 880.66 / 880.66 Lab / Micro Data 06/06/25 05:56 06/06/25 05:56 Labs: Laboratory Results - last 24 hr 06/06/25 05:56: Hemoglobin A1c 6.1 H 06/06/25 12:02: POC Glucose 108 H Physical Exam Const oriented x3 and no apparent distress GI GI Narrative: Left perirectal incision packed with iodoform. Iodoform packing removed at bedside patient tolerated with some pain. Repacked with half-inch iodoform. Assessment & Plan Assessment/Plan (1) Status post incision and drainage: (2) Perirectal abscess: PLAN: Plan Patient tolerated repacking at bedside. Patient's was also taught how to repack once daily x 1 week. Patient will keep her scheduled follow-up appointment also continue on and complete her clindamycin she already has at home p.o. Will DC home. Madina Foss M.D. Pager: [phone] [facility] [address] [place] [address], [address] [place] [address] Office: [phone]
[2025-06-07 09:30] VITALS: BP 121/71; PULSE 59; RESP 16; TEMP 36.4; O2SAT 98
[2025-06-07] MEDS: 0.9% Saline Lock 10 ML Syringe IV ×2 (09:32→11:12)
[2025-06-07] MEDS: Ketorolac 30 MG/ML Syringe IV (11:12)
--- NOTE | 2025-06-07 11:39 | EX.PCM.DISCH ---
Discharge Instructions Diet Discharge Diet: Light diet - advance as tolerated Activity Discharge Activity: May Not Drive (while taking narcotic pain medications.) May shower in (days): 1 Lifting Restrictions: Continue previous lifting restrictions from sphincterotomy Dressing / Incision Call your doctor if your incision/area has: Continuous Slow Oozing, Sudden Increased Bleeding, Increased Pain/ Swelling, Increased Redness, Foul Smelling Discharge and Swelling at the incision site Call your doctor if you observe: Fever of 101 or Higher Change Dressing in: 1 day (Packed with half-inch iodoform daily x 1 week) Cleanse incision/area with: Soap & Water Follow Up Care Please Follow Up With: Riley Swann MD When: Keep previously scheduled appointment with Dr. Hays; after 5 PM and on the weekends call [phone] with any concerns. Test Results: Test results from this visit will be discussed in further detail at your follow-up appointment, if applicable. Discharge Plan Admission Admit Date/Time: 06/06/25 08:10 Attending Provider: Riley Swann Primary Care Provider: Silvana Ward NP Discharge Orders/Prescriptions Prescriptions: Continued clindamycin HCl [Cleocin HCl] 300 mg capsule 300 mg PO TID 7 Days Qty: 21 0RF sertraline 100 MG tablet 100 mg PO QHS lisinopril 10 MG tablet 10 mg PO QHS cholecalciferol (vitamin D3) [Vitamin D3] 125 mcg (5,000 unit) tablet 125 mcg PO DAILY magnesium 250 mg tablet 250 mg PO DAILY metformin 500 mg tablet extended release 24 hr 500 mg PO BID vitamin E (dl, acetate) 180 mg (400 unit) capsule 180 mg PO BID Qty: 60 3RF (DME) Hydrocortisone 2.5%/lidocaine 5% suppository (cmpd) Suppository See Rx Instructions .Route Qty: 42 0RF Rx Instructions: apply to rectum BID Discontinued (DME) Diltiazem 2%/Lidocaine 5% ointment (compound) Ointment See Rx Instructions .Route Qty: 1 0RF Rx Instructions: As directed Referrals / Follow Up: Silvana Ward NP, [employer] [Primary Care Provider, Medical] Disposition Disposition (needs filled in before D/C Order can be placed): Home, Self Care
--- NOTE | 2025-06-07 13:22 | PHA.DC.MR.R ---
Pharmacy [place] [facility]con[facility] has performed discharge medication reconciliation for this patient. The patient's discharge medication list was reviewed for discrepancies and discrepancies were resolved. Medications at Discharge Home Medications sertraline 100 mg tablet 100 mg PO QHS mental health 08/30/17 lisinopril 10 mg tablet 10 mg PO QHS blood pressure 12/14/17 metformin 500 mg tablet,extended release 24 hr 500 mg PO BID 11/29/23 vitamin E (dl, acetate) 180 mg (400 unit) capsule 180 mg PO BID #60 caps 06/06/24 Hydrocortisone 2.5%/lidocaine 5% suppository (cmpd) #42 ea 11/10/24 cholecalciferol (vitamin D3) 125 mcg (5,000 unit) tablet (Vitamin D3) 125 mcg PO DAILY 03/07/25 magnesium 250 mg tablet 250 mg PO DAILY 03/07/25 clindamycin HCl 300 mg capsule (Cleocin HCl) 300 mg PO TID 7 days #21 caps 06/04/25
== END 2025-06-07 13:59 | disposition home or self-care (01) ==
LOC: ED 08:05 → MS3 08:31
PROVIDERS: Anesthesiology; Admitting Provider Surgery; Emergency Provider Emergency Medicine; PCP Registered Nurse; Visit Provider Surgery
PROC: (CPT 46040; principal; 2025-06-06 12:45)
DX: K61.1 Rectal abscess (principal); E11.9 Type 2 diabetes mellitus without complications; Z79.84 Long term (current) use of oral hypoglycemic drugs; Z79.899 Other long term (current) drug therapy; I10 Essential (primary) hypertension; F41.9 Anxiety disorder, unspecified; F32.A Depression, unspecified
CPT/HCPCS: 46040; 00902; 72193; 80048; 82962; 83036; 83605; 85025; 93005; 96361; 96365; 96366; 96375; 96376; 99221; 99285; Q9967; A4216; G0378; J2405

== ENCOUNTER → 2025-07-16 | Outpatient (CLI) | payer OTHER, SELFPAY ==
--- OUTSIDE RECORDS SUMMARY | 2025-07-16 12:18 | XMS RPT_ITS | CCD ---
Author Organization [facility] CliniSyar Care Team Providers Care Surgical Tech Name Role Phone Hari Moss PA-C Primary Care Provider [phone] Dr. Jong Weems Primary Care Provider Dr. Austin Josue Attending Provider Hari Moss PA-C Primary Care Provider [phone] Hari Moss PA-C Primary Care Provider [phone] Dr. Jong Weems Primary Care Provider Dr. Austin Josue Attending Provider Sylvia PAUL NP-C Silvana Referring Provider Dr. Jong Weems Primary Care Provider Mariaelena Interiano Attending Provider Unavailable Dr. Jong Weems Referring Provider Dr. Austin Josue Attending Provider Dr. Austin Josue Referring Provider Dr. Austin Josue Other Provider Hari Moss PA-C Primary Care Provider [phone] Dr. Jong Weems Primary Care Provider Dr. Jong Weems Referring Provider Dr. Alejandro Graham Attending Provider Sylvia PAUL, INSULATION INSPECTOR-C Silvana Primary Care Provider [phone] Sylvia PAUL, INSULATION INSPECTOR-C Silvana Referring Provider CELINE Bagley Attending Provider Dr. Alejandro Graham Attending Provider Dr. Jose Ramon Byers Attending Provider Haagen INSULATION INSPECTOR, INSULATION INSPECTOR-C Silvana Primary Care Provider Haagen INSULATION INSPECTOR, INSULATION INSPECTOR-C Silvana Referring Provider CELINE Bagley Attending Provider Dr. Alejandro Graham Attending Provider Dr. Jose Ramon Byers Attending Provider [phone] CELINE Bagley Referring Provider [phone] Jose Ramon Byers Referring Provider [phone] Jose Ramon Byers Other Provider Hari Moss PA-C Primary Care Provider Jeff Moss PA-C Primary Care Provider Unavailable Haagen MOTORBOAT MECHANIC.SPOT CHECKER, Silvana Unavailable Suppan MOTORBOAT MECHANIC.SPOT CHECKER, Odessa A Unavailable [phone] Haagen MOTORBOAT MECHANIC.SPOT CHECKER, Silvana Primary Care Provider Haagen INSULATION INSPECTOR-C, Silvana Primary Care Provider Dr. Jacinto Smith DO Attending Provider Dr. Jacinto Smith DO Referring Provider Sid INSULATION INSPECTOR-C, Desiree E Attending Provider Sid INSULATION INSPECTOR-C, Desiree E Referring Provider Marty Gil MD Attending Provider Haagen INSULATION INSPECTOR-C, Silvana Referring Provider Dr. Gus Wen DO Attending Provider Geoff INSULATION INSPECTOR-CKeenan Attending Provider Radha PAUL-CHanna Attending Provider Haagen INSULATION INSPECTOR-C, Silvana Primary Care Provider Haagen INSULATION INSPECTOR-C, Silvana Referring Provider Dr. Riley Swann MD Attending Provider Darvin LEON, Dr. Casey Attending Provider Darvin LEON, Dr. Casey Referring Provider Assessment, Health Risk Attending Provider Unava ilable Assessment, Health Risk Referring Provider Unava ilable Haagen INSULATION INSPECTOR-C, [facility] Primary Care Provider Haagen INSULATION INSPECTOR-C, [facility] Referring Provider Urban HILLIARD, Dr. San Attending Provider Kaela HILLIARD, Dr. Soto Attending Provider Unavailab le HAAGEN, SILVANA Attending Unavailable HAAGEN, [facility] [place] Primary Care Unavailable Haagen INSULATION INSPECTOR-C, [facility] Primary Care Physician Urban HILLIARD, Dr. San Attending Physician Darvin LEON, Dr. Casey Attending Physician Kaela HILLIARD, Dr. Soto Attending Physician Unavaila ble Assessment, Health Risk Attending Physician Unav ailable Haagen INSULATION INSPECTOR-C, [facility] Referring Provider Dr. Riley Swann MD Attending Physician Harriet Almaraz Attending Physician Harriet Almaraz Referring Provider Dr. Riley Swann MD Referring Provider Dr. Riley Swann MD Nurse Practitioner Haagen INSULATION INSPECTOR-C, Silvana Attending Physician Harriet Almaraz Attending Physician Harriet Almaraz Referring Provider Harriet Almaraz Attending Physician Harriet Almaraz Referring Provider Dr. Caden Cabezas DO Emergency Department Physic meghan Dr. Riley Swann MD Admitting Physician [phone] Pipo HILLIARD, Dr. Paintre Attending Physician [phone] Dr. Be Padilla MD Attending Physician [phone] Dr. Pasquale Lo MD Referring Provider Unavail able Sheila Serra PA-C Attending Physician Harriet Almaraz Attending Physician [phone] Harriet Almaraz Referring Provider Harriet Almaraz Attending Physician Harriet Almaraz Referring Provider Hanna Garcia Attending Unavailable Haagen INSULATION INSPECTOR, Silvana Referring Unavailable Haagen INSULATION INSPECTOR, Silvana Primary Care Unavailable Riley Swann Attending Unavailable Haagen INSULATION INSPECTOR, Silvana Referring Unavailable Haagen INSULATION INSPECTOR, Silvana Primary Care Unavailable RobothamMadina Attending Unavailable Haagen INSULATION INSPECTOR, Silvana Referring Unavailable Haagen INSULATION INSPECTOR, Silvana Primary Care Unavailable Haagen INSULATION INSPECTOR, Silvana Primary Care Unavailable Haagen INSULATION INSPECTOR, Silvana Referring Unavailable Sheila Gonzalez Attending Unavailable Hanna Garcia Attending Unavailable Haagen INSULATION INSPECTOR, Silvana Primary Care Unavailable Madina Foss Attending Unavailable Riley Swann A Admitting Unavailable Riley Swann Consulting Unavailable Haagen INSULATION INSPECTOR, Silvana Primary Care Unavailable Sid INSULATION INSPECTOR, Desiree E Attending Unavailabl e Sid INSULATION INSPECTOR, Desiree E Referring Unavailabl e Haagen INSULATION INSPECTOR, Silvana Primary Care Unavailable Sid INSULATION INSPECTOR, Desiree E Referring Unavailabl e Sid INSULATION INSPECTOR, Desiree E Attending Unavailabl e Haagen INSULATION INSPECTOR, Silvana Primary Care Unavailable Gus Wen Attending Unavailable Haagen INSULATION INSPECTOR, Silvana Referring Unavailable Haagen INSULATION INSPECTOR, Silvana Primary Care Unavailable Haagen INSULATION INSPECTOR, Silvana Primary Care Unavailable Haagen INSULATION INSPECTOR, Silvana Attending Unavailable Haagen INSULATION INSPECTOR, Silvana Referring Unavailable Jacinto Smith Attending Unavailable Mistyle Jacinto Referring Unavailable Haagen INSULATION INSPECTOR, Silvana Primary Care Unavailable Marty Gil Attending Unavailable Haagen INSULATION INSPECTOR, Silvana Primary Care Unavailable Jacinto Smith Attending Unavailable Marshattle, Jacinto Referring Unavailable Haagen INSULATION INSPECTOR, Silvana Primary Care Unavailable Riley Swann Attending Unavailable Riley Swann A Admitting Unavailable Haagen INSULATION INSPECTOR, Silvana Primary Care Unavailable Haagen INSULATION INSPECTOR, Silvana Primary Care Unavailable Riley Swann Attending Unavailable Haagen INSULATION INSPECTOR, Silvana Referring Unavailable Haagen INSULATION INSPECTOR, Silvana Primary Care Unavailable Wanek, Riley Glez Attending Unavailable Haagen INSULATION INSPECTOR, Silvana Referring Unavailable Friend, Gus Attending Unavailable Haagen INSULATION INSPECTOR, Silvana Referring Unavailable Haagen INSULATION INSPECTOR, Silvana Primary Care Unavailable Wanek, Riley Glez Attending Unavailable Wanek, Riley Glez Referring Unavailable Haagen INSULATION INSPECTOR, Silvana Primary Care Unavailable SpittJacinto león Attending Unavailable Spittle, Jacinto Referring Unavailable Haagen INSULATION INSPECTOR, Silvana Primary Care Unavailable Assessment, Health Risk Attending Unavaila ble Assessment, Health Risk Referring Unavaila ble Haagen INSULATION INSPECTOR, Silvana Primary Care Unavailable Haagen INSULATION INSPECTOR, Silvana Primary Care Unavailable Harriet Larry Attending Unavailable Harriet Larry Referring Unavailable Roof INSULATION INSPECTOR, Keenan Pradhan Attending Unavailable Haagen INSULATION INSPECTOR, Silvana Referring Unavailable Haagen INSULATION INSPECTOR, Silvana Primary Care Unavailable Charles Sherwood Attending Unavailable Spittle, Jacinto Referring Unavailable Haagen INSULATION INSPECTOR, Silvana Primary Care Unavailable Wanek, Riley Glez Attending Unavailable Haagen INSULATION INSPECTOR, Silvana Referring Unavailable Haagen INSULATION INSPECTOR, Silvana Primary Care Unavailable Friend, Gus Attending Unavailable Haagen INSULATION INSPECTOR, Silvana Referring Unavailable Haagen INSULATION INSPECTOR, Silvana Primary Care Unavailable Wanek, Riley Glez Attending Unavailable Wanek, Riley Glez Referring Unavailable WanekRiley Consulting Unavailable Haagen INSULATION INSPECTOR, Silvana Primary Care Unavailable WanekRiley Attending Unavailable WanekRiley Attending Unavailable Haagen INSULATION INSPECTOR, Silvana Referring Unavailable Haagen INSULATION INSPECTOR, Silvana Primary Care Unavailable Haagen INSULATION INSPECTOR-C, Silvana Primary Care Physician Dr. Jacitno Smith DO Attending Physician Dr. Jacinto Smith DO Referring Provider Haagen INSULATION INSPECTOR-C, Silvana Referring Provider Dr. Riley Swann MD Attending Physician Dr. Riley Swann MD Referring Provider Shree HILLIARD, Dr. Riley Glez Nurse Practitioner Haagen INSULATION INSPECTOR-C, Silvana Attending Physician Dr. Caden Cabezas DO Emergency Department Physic meghan Shree HILLIARD, Dr. Riley Glez Admitting Physician Dr. Be Padilla MD Attending Physician Kaci HILLIARD, Dr. Giordano Referring Provider Unavail laurie Foss MD, Dr. Painter Attending Physician Sheila Serra PA-C Attending Physician Harriet Almaraz Attending Physician Harriet Almaraz Referring Provider [phone] Allergies Allergy Classification Reported Allergen(s) Allergy Type Date of Onset Reaction(s) Facility (20 sources) Latex; Translations: [LATEX] Drug Intolerance 3 [facility] (20 sources) Penicillins; Translations: [PENICILLINS] Drug Intolerance 3 [facility] (20 sources) Sulfonamides (Antibiotic); Translations: [SULFA (SULFONAMIDE ANTIBIOTICS)] Drug Intolerance 3 [facility] (20 sources) Penicillins Allergy to substance 2 other [facility] Comment on above: Showed on an allergy test (20 sources) Sulfonamides (Antibiotic) Allergy to substance 2 [facility] (3 sources) Penicillins Drug Intolerance 3 [facility] (1 source) Latex Drug allergy (disorder) 5 [facility] (1 source) Penicillins Drug allergy (disorder) 5 [facility] (1 source) Sulfonamides (Antibiotic) Drug allergy (disorder) 5 [facility] Medications Current Medications Medication Drug Class(es) Dates Sig (Normalized) Sig (Original) cholecalciferol 0.125 mg oral tablet (20 sources) Vitamin D Start: 03-07-2025 take 1 tablet by mouth once daily Start: 06-09-2021 End: 07-30-2022 take 1 capsule by mouth once daily Cholecalciferol (Vitamin D3) 125 mcg (5,000 unit) capsule Discontinued 125 ug PO DAILY June 08, 2021 11:00pm July 30, 2022 2:21pm clindamycin 300 mg oral capsule (7 sources) Lincosamide Antibacterial Start: 07-03-2025 End: 07-10-2025 take 1 capsule by mouth three times daily Clindamycin Hcl (Cleocin Hcl) 300 mg capsule Discontinued 300 mg PO THREE TIMES A DAY 21 7 0 July 03, 2025 12:00am July 09, 2025 12:00am July 10, 2025 12:07am Start: 06-04-2025 End: 06-11-2025 take 1 capsule by mouth three times daily Clindamycin Hcl (Cleocin Hcl) 300 mg capsule Discontinued 300 mg PO THREE TIMES A DAY 21 7 0 June 03, 2025 11:00pm June 09, 2025 11:00pm June 10, 2025 11:10pm [id number] 0.3 ml EPINEPHrine 1 mg/ml auto-injector (3 sources) alpha-Adrenergic Agonist, beta-Adrenergic Agonist, Catecholamine Start: 03-13-2025 EPINEPHrine (EPIP EN 2-BLAIR) 0.3 mg/0.3 mL auto-injector Indications: Bee sting, accidental or unintentional, sequela Inject 0.3 mL intramuscularly as needed. 1 each 03/13/2025 Active Hydrocortisone 2.5%/Lidocaine 5% Suppository (Cmpd) suppository (11 sources) Start: 11-10-2024 Hydrocortisone 2.5%/Lidocaine 5% Suppository (Cmpd) suppository Active 0 .Route 42 0 November 09, 2024 11:00pm apply to rectum BID Start: 11-10-2024 Hydrocortisone 2.5%/Lidocaine 5% Suppository (Cmpd) suppository Active 0 .Route 42 0 November 10, 2024 12:00am apply to rectum BID Start: 11-10-2024 Hydrocortisone 2.5%/Lidocaine 5% Suppository (Cmpd) suppository Active 0 .Route 42 November 10, 2024 12:00am apply to rectum BID iv contrast (will be provided with radiology [...] link. 1 Each 0 08/02/2023 08/03/2023 Active Comment on above: CT Urogram WO/W Inject, intravenously, o nce for 1 dose.No IV access, insert saline lock prior to the beginning of sedation, infusion, injection of imaging exam. Discontinue saline lock post exam. If Pt. has a central line or IVAD, may access for administration according to line specific nursing protocol. Once exam is complete flush line and de-access according to line specific nursing protocol in the CT contrast administration guidelines link. lisinopril 10 mg oral tablet (20 sources) Angiotensin Converting Enzyme Inhibitor Start: 12-14-2017 End: 03-13-2025 take 1 tablet by mouth at bedtime Comment on above: Take 1 tablet by mouth once daily. Magnesium (10 sources) Start: 03-07-2025 take 1 tablet by mouth once daily Start: 03-07-2025 take 1 tablet by sania th once daily Magnesium 250 mg tablet Active 250 mg PO DAILY March 07, 2025 12:00am Complies with drug therapy Start: 03-07-2025 take 1 tablet by sania th once daily Start: 03-07-2025 take 1 tablet by asnia th once daily Magnesium 250 mg tablet Active 250 mg PO DAILY March 07, 2025 12:00am 24 hr metFORMIN hydrochlorid e 500 mg extended release oral tablet (20 sources) Biguanide Start: 11-29-2023 take 1 tablet by sania th twice daily Start: 09-07-2023 take 500 mg by mouth once dorita y Metformin Active 500 MG PO DAILY September 07, 2023 1:00am Start: 06-23-2023 End: 03-13-2025 take 2 tablets by mouth once daily at breakfast metFORMIN ER (GLUCOPHAGE XR) 500 mg 24 hr tablet Indications: Type 2 diabetes mellitus without complication, without long-term current use of insulin (HCC) Take 2 tablets by mouth daily with breakfast. 180 tablet 5 03/13/2025 Active Comment on above: Take 1 tablet by sania th daily with breakfast. perflutren lipid microspheres 1.3 mL in NaCl (PF) 0.9% 10 mL injection (DEFINITY) (11 sources) Start: 022 End: perflutren lipid microspheres 1.3 mL in NaCl (PF) 0.9% 10 mL injection (DEFINITY) tirzepatide (MOUNJARO) 2.5 mg/0.5 mL pen injector (3 sources) Start: 025 inject 2.5 mg by subcutaneous injection every week tirzepatide (MOUNJARO) 2.5 mg/0.5 mL pen injector Inject 2.5 mg subcutaneously one time a week. 4 each 03/13/2025 Active vitamin e 180 mg oral capsule (11 sources) Start: take 1 capsule by mouth twice daily Completed/Discontinued Medications Medication Drug Class(es) Dates Sig (Normalized) Sig (Original) acetaminophen 325 mg / HYDROcodone bitartrate 5 mg oral tablet (11 sources) Opioid Agonist Start: 02-11-2024 End: 07-26-2024 Hydrocodone-Acetam inophen 5-325 mg tablet Discontinued 1 {tbl} PO EVERY 6 HOURS NEEDED as needed for Pain 10 3 0 February 11, 2024 July 26, 2024 8:34am Acute pain of left knee Acute medial meniscus tear of left knee Pain in left knee Other tear of medial meniscus, current injury, left knee, initial encounter ascorbic acid 500 mg oral tablet (20 sources) Vitamin C Start: 06-09-2021 End: 07-30-2022 take 1 tablet by mouth once daily Ascorbic Acid (Vitamin C) 500 mg tablet Discontinued 500 mg PO DAILY June 08, 2021 11:00pm July 30, 2022 2:21pm azithromycin 250 mg oral tablet (11 sources) Macrolide Antimicrobial Start: 12-16-2024 End: 12-22-2024 Azithromycin 250 mg tablet Discontinued 0 PO .COMPLEX 6 0 December 15, 2024 11:00pm December 22, 2024 1:15pm For 250 mg dose pack: take 500 mg today (day 1), then 250 mg for 4 days (days 2-5) PO busPIRone hydrochloride 5 mg oral tablet (5 sources) Start: 06-09-2024 End: 03-13-2025 take 1 tablet by mouth three times daily as needed for anxiety busPIRone (BUSPAR) 5 mg tablet Take 1 tablet by mouth three times a day. As needed for anxiety. 90 tablet 06/09/2024 03/13/2025 Discontinued COMPOUNDED PRESCRIPTION (13 sources) Start: 04-24-2019 End: 06-22-2023 COMPOUNDED PRESCRIPTION Indications: Neck arthralgia Consult to Massage Therapy ICD-10: M54.2 1 Each 0 04/24/2019 06/22/2023 Discontinued Start: 04-24-2019 COMPOUNDED PRE SCRIPTION Indications: Neck arthralgia Consult to Massage Therapy ICD-10: M54.2 1 Each 0 04/24/2019 Active Comment on above: Consult to Massage T herapy ICD-10: M54.2 Diltiazem 2% / Lidocaine 5% Ointment (Compound) [Diltiazem 2%/Lidocaine 5% Ointment (Compound)] (Diltiazem 2%/Lidocaine 5% ) ointment (11 sources) Start: 11-09-2024 End: 06-07-2025 Diltiazem 2% / Lidocaine 5% Ointment (Compound) [Diltiazem 2%/Lidocaine 5% Ointment (Compound)] (Diltiazem 2%/Lidocaine 5% ) ointment Discontinued 0 .Route 1 November 08, 2024 11:00pm June 07, 2025 10:41am hemorroids As directed Start: 11-09-2024 End: 06-07-2025 Diltiazem 2% / Lidocaine 5% Ointment (Compound) [Diltiazem 2%/Lidocaine 5% Ointment (Compound)] (Diltiazem 2%/Lidocaine 5% ) ointment Discontinued 0 .Route 1 November 09, 2024 12:00am June 07, 2025 11:41am hemorroids As directed Start: 11-09-2024 Diltiazem 2% / Lidocaine 5% Ointment (Compound) [Diltiazem 2%/Lidocaine 5% Ointment (Compound)] (Diltiazem 2%/Lidocaine 5% ) ointment Active 0 .Route 1 November 09, 2024 12:00am hemorroids As directed Start: 11-09-2024 Diltiazem 2% / Lidocaine 5% Ointment (Compound) [Diltiazem 2%/Lidocaine 5% Ointment (Compound)] (Diltiazem 2%/Lidocaine 5% ) ointment Active 0 .Route 1 November 09, 2024 12:00am As directed doxycycline hyclate 100 mg oral capsule (11 sources) Tetracycline-class Drug Start: 11-26-2024 End: 12-03-2024 take 1 capsule by mouth twice daily Doxycycline Hyclate 100 mg capsule Discontinued 100 mg PO TWICE A DAY 14 7 0 November 25, 2024 11:00pm December 01, 2024 11:00pm December 02, 2024 11:14pm etodolac 500 mg oral tablet (20 sources) Nonsteroidal Anti-inflammatory Drug Start: 04-28-2023 End: 09-07-2023 take 1 tablet by mouth twice daily Etodolac 500 mg tablet Discontinued 500 mg PO TWICE A DAY 60 0 April 27, 2023 11:00pm September 07, 2023 1:12pm Start: 06-09-2021 End: 07-09-2021 take 1 tablet by mouth twice daily Etodolac 500 mg tablet Discontinued 500 mg PO TWICE A DAY 60 1 June 08, 2021 11:00pm July 09, 2021 9:29am Do not use in conjunction with ibuprofen or other NSAID. Tylenol is okay fluconazole 150 mg oral tablet (6 sources) Azole Antifungal Start: 06-04-2025 End: 06-06-2025 take 1 tablet by mouth once daily Fluconazole 150 mg tablet Discontinued 150 mg PO daily 7 7 0 June 03, 2025 11:00pm June 09, 2025 11:00pm June 06, 2025 7:33am hydrocortisone 25 mg/ml topical cream (20 sources) Corticosteroid Start: 11-03-2024 End: 11-10-2024 Hydrocortisone 2.5 % cream with perineal applicator Discontinued 1 NMA RC 1 to 2 times per day as needed for hemorrhoids 30 0 November 09, 2024 10:37am November 10, 2024 2:31pm Start: 11-03-2024 End: 03-07-2025 Hydrocortisone Acetate 25 mg suppository Discontinued 25 mg RC TWICE A DAY 12 3 November 03, 2024 12:00am March 07, 2025 7:23am Hydrocortisone Acetate 25 mg suppository (3 sources) Start: 11-03-2024 End: 03-07-2025 Hydrocortisone Acetate 25 mg suppository Discontinued 25 mg RC TWICE A DAY 12 November 03, 2024 1:00am March 07, 2025 8:23am Start: 11-03-2024 Hydrocortisone Acetate 25 mg suppository Active 25 mg RC TWICE A DAY November 03, 2024 1:00am ibuprofen 800 mg oral tablet (20 sources) Nonsteroidal Anti-inflammatory Drug Start: 12-20-2017 End: 07-20-2022 take 1 tablet by mouth three times daily as needed for pain Ibuprofen 800 mg tablet Discontinued 800 mg PO THREE TIMES A DAY as needed for pain/fever February 10, 2021 1:56pm July 20, 2022 3:17pm oxyCODONE hydrochloride 5 mg oral tablet (8 sources) Opioid Agonist Start: 05-29-2025 End: 06-04-2025 take 1 tablet by mouth every eight hours as needed for pain Oxycodone 5 mg tablet Discontinued 5 mg PO Q8H as needed for pain 16 4 0 May 29, 2025 June 04, 2025 11:40am Anal fissure Anal fissure, unspecified Start: 05-29-2025 take 1 tablet by mouth every e ight hours as needed for pain polymyxin b [id number] unt/ml / trimethoprim 1 mg/ml ophthalmic solution (11 sources) Dihydrofolate Reductase Inhibitor Antibacterial, Polymyxin-class Antibacterial Start: 11-26-2024 End: 12-06-2024 Polymyxin B Sulf-Trimethoprim 10,000 unit- 1 mg/mL drops Discontinued 1 - 2 NMA OPHTHALMIC .Q3-6H 10 10 0 November 25, 2024 11:00pm December 04, 2024 11:00pm December 05, 2024 11:09pm while awake; do not exceed 6 doses in 24 hours sertraline 50 mg oral tablet (20 sources) Serotonin Reuptake Inhibitor Start: 06-09-2024 End: 03-13-2025 take 1 mg by mouth once daily Sertraline 50 mg tablet Discontinued mg PO DAILY October 26, 2024 12:00am March 07, 2025 7:23am Start: 08-30-2017 End: 03-13-2025 take 1 tablet by mouth at bedtime Comment on above: Take 1 tablet by sania th once daily. 1000 ml sodium chloride 9 mg/ml injection (12 sources) Start: 08-02-2023 End: 08-02-2023 0.9 % sodium chloride (NACL 0.9%) infusion Indications: Gross hematuria Administer at rate defined per CT contrast administration specifications. To be provided with radiology test. 150 mL 0 08/02/2023 08/02/2023 Start: 03-24-2022 End: 06-23-2023 sodium chloride 0.9 % (flush ) 10 mL (BD POSIFLUSH) Comment on above: Administer at rate d efined per CT contrast administration specifications. To be provided with radiology test. Tirzepatide (8 sources) Start: 05-25-2025 End: 06-06-2025 Tirzepatide (Mounjaro) 2.5 mg/0.5 mL pen injector Discontinued 2.5 mg SC STERN May 24, 2025 11:00pm June 06, 2025 7:33am Start: 05-25-2025 End: 06-06-2025 Tirzepatide (Mounjaro) 2.5 m g/0.5 mL pen injector Discontinued 2.5 mg SC STERN May 25, 2025 12:00am June 06, 2025 8:33am Start: 05-25-2025 Tirzepatide (M ounjaro) 2.5 mg/0.5 mL pen injector Active 2.5 mg SC STERN May 25, 2025 12:00am Complies with drug therapy Start: 05-25-2025 ursodiol 250 mg oral tablet (11 sources) Bile Acid Start: 06-06-2024 End: 03-07-2025 take 1 tablet by mouth twice daily Ursodiol 250 mg tablet Discontinued 250 mg PO TWICE A DAY 60 3 June 05, 2024 11:00pm March 07, 2025 7:23am Problems Active Problems Problem Classification Problem Date Documented Da te Episodic/Chronic Abdominal pain (20 sources) Right lower quadrant pain; Translations: [Right lower quadrant pain] 07-20-2022 Episodic Comment on above: Patient was able to obtain lab work prior to her office visit. Her WBC is 8.0. Remaining labs are unremarkable. Adjustment disorders (7 sources) Adjustment disorder with mixed anxiety and depressed mood; Translations: [Adjustment disorder with mixed anxiety and depressed mood] Onset: 03-13-2025 Chronic Anal and rectal conditions (20 sources) Anal fissure; Translations: [Anal fissure, unspecified] Onset: 03-13-2025 03-13-2025 Episodic Anxiety disorders (20 sources) Anxiety; Translations: [Anxiety disorder, unspecified] Onset: 05-24-2013 05-24-2013 Chronic Appendicitis and other appendiceal conditions (20 sources) Acute appendicitis; Translations: [Unspecified acute appendicitis] 07-20-2022 Episodic Calculus of urinary tract (20 sources) Kidney stone; Translations: [Calculus of kidney] Onset: 09-07-2017 09-07-2017 Episodic Cardiac dysrhythmias (20 sources) Palpitations; Translations: [Palpitations] Episodic Diabetes mellitus without complication (10 sources) Type 2 diabetes mellitus; Translations: [Type 2 diabetes mellitus without complications] Onset: 03-13-2025 03-13-2025 Chronic Diabetes mellitus without complication (3 sources) Hyperglycemia; Translations: [Impaired fasting glucose] 04-06-2023 Episodic Essential hypertension (20 sources) Essential hypertension; Translations: [Essential (primary) hypertension] Onset: 11-03-2017 11-03-2017 Chronic Genitourinary symptoms and ill-defined conditions (1 source) Nick hematuria; Translations: [Gross hematuria] 08-02-2023 Episodic Heart valve disorders (20 sources) Mitral valve annular calcification; Translations: [Rheumatic mitral valve disease, unspecified] Onset: 04-24-2022 Chronic Comment on above: mild to moderate unruly ral annular calcification. Extension of the mitral annular calcification onto the base of the posterior mitral leaflet. per ECHO 04/20/22 Hemorrhoids (20 sources) Hemorrhoids; Translations: [Unspecified hemorrhoids] 07-20-2022 Episodic Joint disorders and dislocations; trauma-related (2 sources) Tear of medial meniscus of knee; Translations: [Other tear of medial meniscus, current injury, right knee, subsequent encounter] Onset: 03-13-2025 03-13-2025 Episodic Malaise and fatigue (1 source) Fatigue; Translations: [Other fatigue] 04-10-2024 Episodic Mood disorders (20 sources) Depressive disorder; Translations: [Depression] Onset: 05-24-2013 05-24-2013 Chronic Nonmalignant breast conditions (1 source) Lump in left breast; Translations: [Unspecified lump in the left breast, unspecified quadrant] 04-10-2024 Episodic Nonspecific chest pain (20 sources) Chest pain; Translations: [Chest pain, unspecified] Episodic Open wounds of extremities (20 sources) Laceration of right thumb; Translations: [Laceration without foreign body of right thumb without damage to nail, initial encounter] 07-20-2022 Episodic Other and unspecified benign neoplasm (20 sources) History of polyp of colon; Translations: [Personal history of colonic polyps] 02-10-2021 Episodic Other bone disease and musculoskeletal deformities (20 sources) Segmental and somatic dysfunction; Translations: [Segmental and somatic dysfunction of cervical region] 07-20-2022 Episodic Other connective tissue disease (20 sources) Lateral epicondylitis of bilateral humerus; Translations: [Lateral epicondylitis, right elbow] 04-06-2023 Episodic Other diseases of veins and lymphatics (16 sources) Venous insufficiency of leg; Translations: [Venous insufficiency (chronic) (peripheral)] 10-08-2023 Episodic Other ear and sense organ disorders (20 sources) Hearing loss in left ear; Translations: [Unspecified hearing loss, left ear] Onset: 09-12-2015 09-12-2015 Chronic Other liver diseases (20 sources) Steatosis of liver; Translations: [Fatty (change of) liver, not elsewhere classified] Onset: 07-15-2016 08-26-2021 Chronic Other liver diseases (12 sources) Fatty (change of) liver, not elsewhere classified; Translations: [Nonalcoholic fatty liver disease] 04-26-2024 Chronic Other liver diseases (1 source) Elevated liver enzymes level; Translations: [Abnormal levels of other serum enzymes] 04-06-2023 Episodic Other lower respiratory disease (20 sources) Cough; Translations: [Cough] 12-16-2024 Episodic Other non-traumatic joint disorders (20 sources) Hip pain; Translations: [Pain in right hip] 07-20-2022 Episodic Other non-traumatic joint disorders (11 sources) Effusion of joint of left knee; Translations: [Effusion, left knee] 02-15-2024 Episodic Other non-traumatic joint disorders (11 sources) Pain in left knee; Translations: [Acute pain of left knee] 02-19-2024 Episodic Other nutritional; endocrine; and metabolic disorders (20 sources) Obesity; Translations: [Obesity, unspecified] Onset: 07-15-2016 07-15-2016 Chronic Other nutritional; endocrine; and metabolic disorders (20 sources) Morbid obesity; Translations: [Morbid (severe) obesity due to excess calories] 12-22-2017 Chronic Other nutritional; endocrine; and metabolic disorders (1 source) Severe obesity; Translations: [Class 2 severe obesity due to excess calories with serious comorbidity and body mass index (BMI) of 38.0 to 38.9 in adult ([facility])] 03-13-2025 Chronic Other nutritional; endocrine; and metabolic disorders (1 source) Morbid (severe) obesity due to excess calories; Translations: [Class 2 severe obesity due to excess calories with serious comorbidity and body mass index (BMI) of 38.0 to 38.9 in adult ([facility])] Onset: 03-13-2025 Chronic Other nutritional; endocrine; and metabolic disorders (1 source) Body mass index (BMI) 38.0-38.9, adult; Translations: [Class 2 severe obesity due to excess calories with serious comorbidity and body mass index (BMI) of 38.0 to 38.9 in adult ([facility])] Onset: 03-13-2025 Chronic Other screening for suspected conditions (not mental disorders or infectious disease) (20 sources) Patient encounter status; Translations: [Encounter for screening mammogram for malignant neoplasm of breast] Onset: 01-29-2015 Resolved: 05-14-2015 Episodic Other upper respiratory disease (14 sources) Nasal discharge; Translations: [Other specified disorders of nose and nasal sinuses] 12-16-2024 Episodic Other upper respiratory disease (14 sources) Nasal congestion; Translations: [Nasal congestion] 12-16-2024 Episodic Other upper respiratory infections (13 sources) Maxillary sinusitis; Translations: [Chronic maxillary sinusitis] 11-26-2024 Chronic Poisoning by nonmedicinal substances (2 sources) Bee sting; Translations: [Toxic effect of venom of bees, accidental (unintentional), sequela] Onset: 03-13-2025 03-13-2025 Episodic Residual codes; unclassified (17 sources) Edema of lower extremity; Translations: [Localized edema] 09-07-2023 Episodic Residual codes; unclassified (6 sources) Localized edema; Translations: [Edema] 09-07-2023 Episodic Residual codes; unclassified (19 sources) Past history of procedure; Translations: [Other specified postprocedural states] 06-07-2025 Episodic Comment on above: For perirectal absce ss Residual codes; unclassified (1 source) Other specified postprocedural states; Translations: [Other specified postprocedural states] Onset: 06-27-2025 Episodic Retinal detachments; defects; vascular occlusion; and retinopathy (20 sources) Retinal lattice degeneration; 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); Translations: [Class 2 severe obesity due to excess calories with serious comorbidity and body mass index (BMI) of 38.0 to 38.9 in adult (HCC)] Onset: 03-13-2025 Unclassified (1 source) Cough, unspecified; Translations: [Cough, unspecified] Onset: 12-16-2024 Unclassified (1 source) Subacute cough; Translations: [Subacute cough] Onset: 12-16-2024 Urinary tract infections (20 sources) Recurrent urinary tract infection; Translations: [Urinary tract infection, site not specified] Onset: 09-07-2017 09-07-2017 Episodic Varicose veins of lower extremity (13 sources) Varicose veins of lower extremity; Translations: [Varicose veins of right lower extremity with pain] 12-27-2023 Episodic Viral infection (20 sources) COVID-19; Translations: [Other specified viral infection] Onset: 03-22-2021 03-22-2021 Episodic Past or Other Problems Problem Classification Problem Date Documented Da te Episodic/Chronic Blindness and vision defects (20 sources) Amblyopia of left eye; Translations: [Unspecified amblyopia, left eye] Onset: 08-02-2014 08-02-2014 Episodic Joint disorders and dislocations; trauma-related (13 sources) Acute meniscal tear, medial; Translations: [Other tear of medial meniscus, current injury, left knee, initial encounter] Onset: 11-02-2024 02-19-2024 Episodic Other and unspecified benign neoplasm (20 sources) Polyp of colon; Translations: [Polyp of colon] Onset: 05-24-2013 07-24-2021 Episodic Other circulatory disease (20 sources) Feeling of lump in throat; Translations: [Other specified symptoms and signs involving the circulatory and respiratory systems] Onset: 03-08-2015 03-08-2015 Episodic Other connective tissue disease (9 sources) Lateral epicondylitis, right elbow; Translations: [Lateral epicondylitis] Onset: 11-02-2024 04-28-2023 Episodic Other connective tissue disease (1 source) Lateral epicondylitis, left elbow; Translations: [Lateral epicondylitis, left elbow] Onset: 11-02-2024 Episodic Other nutritional; endocrine; and metabolic disorders (20 sources) Hyperuricemia; Translations: [Hyperuricemia without signs of inflammatory arthritis and tophaceous disease] Onset: 04-19-2019 04-24-2019 Episodic Other upper respiratory disease (1 source) Nasal congestion; Translations: [Nasal congestion] Onset: 12-16-2024 Episodic Other upper respiratory disease (1 source) Other specified disorders of nose and nasal sinuses; Translations: [Other specified disorders of nose and nasal sinuses] Onset: 12-16-2024 Episodic Other upper respiratory infections (20 sources) Laryngitis; Translations: [Acute laryngitis] Onset: 03-08-2015 Resolved: 07-15-2016 07-15-2016 Episodic Residual codes; unclassified (1 source) Encounter for cosmetic surgery; Translations: [Encounter for cosmetic surgery] Onset: 11-22-2024 Episodic Results Test Name Value Interpretation Reference Range Facility Surgery Visit Reporton 07-03 Surgery Visit Report [facility] [address] [place] [address]. [address] [place] [address] OFFICE VISIT Date of Service: 07/03/25 MR#: [id number] Acct: [id number] Name: ELIZABETH BABB Rep #: [id number] 2 : 1975 Provider: Dr. Riley alexandre MD Age/Sex: 50/F Location: [facility] Status: Signed Intake Vital Signs 06/08/25 13:25 Height 5 ft 6 in Intake Visit Reasons: WOUND CHECK Chief Complaint: wound check Is patient in pain?: No Allergies latex Allergy (Verified 07/03/25 13:08) Swelling, itching Penicillins (PCN) Allergy (Verified 07/03/25 13:08) other Sulfa (Sulfonamide Antibiotics) Allergy (Verified 07/03/25 13:08) Hives, welts Medications ???Medication ???Instructions ???Recorded ???Confirmed ???Type sertraline 100 mg tablet 100 mg PO QHS mental health 07/03/25 History lisinopril 10 mg tablet 10 mg PO QHS blood pressure 07/03/25 History metformin 500 mg tablet,extended 500 mg PO BID 11/29/23 07/03/25 Hi story release 24 hr vitamin E (dl, acetate) 180 mg 180 mg PO BID #60 caps 06/06/24 Rx (400 unit) capsule Hydrocortisone 2.5%/lidocaine 5% #42 ea 11/10/24 07/03/25 Rx suppository (cmpd) cholecalciferol (vitamin D3) 125 125 mcg PO DAILY 03/07/25 07/03/25 History mcg (5,000 unit) tablet (Vitamin D3) magnesium 250 mg tablet 250 mg PO DAILY 03/07/25 07/03/25 History clindamycin HCl 300 mg capsule 300 mg PO TID 7 days #21 caps 12/2207/03/25 Rx (Cleocin HCl) Subjective Details: The patient is a 50-year-old female who is being seen today in follow-up after recent surgery for a anal fissure. She underwent a lateral sphincterotomy. Her postoperative course was complicated by postoperative abscess. She underwent incision and drainage of this abscess. She returns today for postoperative visit. She states that overall she is improving in terms of pain and symptoms but she is noticing still some persistent pain at the original sphincterotomy site along with some occasional purulent drainage. Objective Details: She is alert and oriented x 3. She is in no acute distress. The hardness and tenderness on the right side of the buttock is now almost completely resolved. Examination of the left side near the sphincterotomy location shows that this is still healing. There is still some degree of an epithelialized tissue which is likely the cause for the drainage/exudate. There is mild tenderness in this area but no obvious fluctuant mass Coding Level of Care Code Global Post Op Diagnoses Status post incision and drainage Z98.890 [facility] Medical History Normal Holter exam Anal fissure Effusion, left knee Diabetes Restless legs Shortness of breath on exertion Leg cramps Cardiology follow-up encounter History of echocardiogram History of stress test Nonrheumatic mitral valve disorder Fatty liver Wears glasses Depression Anxiety Back pain Non-smoker History of edema Hypertension Labral tear of right hip joint Segmental and somatic dysfunction of pelvic region Segmental and somatic dysfunction of lumbar region Segmental and somatic dysfunction of thoracic region Segmental and somatic dysfunction of cervical region Surgical History (Updated 06/12/25 @ 00:00 by Tonny Sy) Status post incision and drainage Hx of knee surgery Hx of cystoscopy History of adenoidectomy History of laparoscopic appendectomy ( 09/03/21) History of History of lithotripsy History of tonsillectomy History of colonoscopy ( 2015) History of hysterectomy ( 2011) History of cholecystectomy ( 2001) Family History Mother Hypertension Thyroid disorder Depression Rheumatoid arthritis Grandmother Parkinsons disease Social History household members: spouse and children housing: house number of children: 3 current occupational status: employed pets and animals: Yes Smoking Status: Never smoker alcohol intake: never substance use type: does not use caffeine: Yes (occasional) what type of physical activity do you participate in: none seatbelt use: always do you feel safe at home: Yes Assessment and Plan (No Qualifiers) Assessment and Plan (1) Status post incision and drainage: Status: Acute Comment: For perirectal abscess Plan The patient is a 50-year-old female with the previously mentioned history of a lateral internal sphincterotomy complicated by a postoperative abscess. This was successfully drained. This seems to be slowly healing by secondary intention. I have recommended placing her on some antibiotics to see if this will help heal the wound. I (more content not included)... Normal [facility] Surgery Visit Reporton 06-20 Surgery Visit Report [facility] [address] [place] [address] OFFICE VISIT Date of Service: 06/20/25 MR#: [id number] Acct: [id number] Name: ELIZABETH BABB Rep #: [id number] 1 : 1975 Provider: Dr. Riley alexandre MD Age/Sex: 50/F Location: [facility] Status: Signed Intake Vital Signs 06/08/25 13:25 Height 5 ft 6 in Intake Visit Reasons: WOUND CHECK Chief Complaint: wound check [place] Required: No Is patient in pain?: No Allergies latex Allergy (Verified 06/20/25 13:51) Swelling, itching Penicillins (PCN) Allergy (Verified 06/20/25 13:51) other Sulfa (Sulfonamide Antibiotics) Allergy (Verified 06/20/25 13:51) Hives, welts Medications ???Medication ???Instructions ???Recorded ???Confirmed ???Type sertraline 100 mg tablet 100 mg PO QHS mental health 06/20/25 History lisinopril 10 mg tablet 10 mg PO QHS blood pressure 06/20/25 History metformin 500 mg tablet,extended 500 mg PO BID 11/29/23 06/20/25 Hi story release 24 hr vitamin E (dl, acetate) 180 mg 180 mg PO BID #60 caps 06/06/24 Rx (400 unit) capsule Hydrocortisone 2.5%/lidocaine 5% #42 ea 11/10/24 06/20/25 Rx suppository (cmpd) cholecalciferol (vitamin D3) 125 125 mcg PO DAILY 03/07/25 06/20/25 History mcg (5,000 unit) tablet (Vitamin D3) magnesium 250 mg tablet 250 mg PO DAILY 03/07/25 06/20/25 History Have you fallen in the past year?: No Subjective Details: The patient is a 50-year-old female status post a lateral internal sphincterotomy for treatment of a very large chronic anal fissure. Her postoperative course was complicated by an abscess that developed at the incision site of the sphincterotomy. She subsequently underwent a second surgery to drain this abscess. She was seen last week in follow-up and was having less pain. She presents again for another wound reevaluation. She states she is still having some drainage from the I D site. She is also having some induration in the area of the abscess as well as some induration to the right buttock as well but no tenderness. She denies any fevers or chills. She is off of antibiotics. Objective Details: She is alert and oriented x 3. She is in no acute distress. The I D site appears to be slowly healing. There is some mild exudate present. I encouraged her to try to wash this away with showering and bathing. There is still some induration to the area as well as the right buttock area. I reassured her that this induration is not uncommon and should steadily improve. She has noticed that this has gone down considerably. Coding Level of Care Code Global Post Op Diagnoses Status post incision and drainage Z98.890 [facility] Medical History (Updated 06/12/25 @ 00:00 by Background Daemon) Normal Holter exam Anal fissure Effusion, left knee Diabetes Restless legs Shortness of breath on exertion Leg cramps Cardiology follow-up encounter History of echocardiogram History of stress test Nonrheumatic mitral valve disorder Fatty liver Wears glasses Depression Anxiety Back pain Non-smoker History of edema Hypertension Labral tear of right hip joint Segmental and somatic dysfunction of pelvic region Segmental and somatic dysfunction of lumbar region Segmental and somatic dysfunction of thoracic region Segmental and somatic dysfunction of cervical region Surgical History (Updated 06/12/25 @ 00:00 by Background Daemon) Status post incision and drainage Hx of knee surgery Hx of cystoscopy History of adenoidectomy History of laparoscopic appendectomy ( 09/03/21) History of History of lithotripsy History of tonsillectomy History of colonoscopy ( 2015) History of hysterectomy ( 2011) History of cholecystectomy ( 2001) Family History Mother Hypertension Thyroid disorder Depression Rheumatoid arthritis Grandmother Parkinsons disease Social History household members: spouse and children housing: house number of children: 3 current occupational status: employed pets and animals: Yes Smoking Status: Never smoker alcohol intake: never substance use type: does not use caffeine: Yes (occasional) what type of physical activity do you participate in: none seatbelt use: always do you feel safe at home: Yes Assessment and Plan (No Qualifiers) Assessment and Plan (1) Status post incision and drainage: Status: Acute Comment: For perirectal abscess Plan The patient is a 50-year-old female status post a lateral internal sphincterotomy which was complicated by postoperative abscess. This is since been drained. She seems to be improving albeit slowly. I (more content not included)... Normal [facility] Surgery Visit Reporton 06-13 Surgery Visit Report [facility] [address] [place] [address] OFFICE VISIT Date of Service: 06/13/25 MR#: [id number] Acct: [id number] Name: ELIZABETH BABB Rep #: [id number] 9 : 1975 Provider: KAVON olivo Age/Sex: 50/F Location: [facility] Status: Signed Intake Vital Signs 05/29/25 12:23 06/08/25 13:25 Height 5 ft 6 in 5 ft 6 in Intake Visit Reasons: ANAL FISSURE DOS 05/29 Chief Complaint: anal fissure DOS 05/29 Is patient in pain?: Yes Allergies latex Allergy (Verified 06/13/25 08:39) Swelling, itching Penicillins (PCN) Allergy (Verified 06/13/25 08:39) other Sulfa (Sulfonamide Antibiotics) Allergy (Verified 06/13/25 08:39) Hives, welts Medications ???Medication ???Instructions ???Recorded ???Confirmed ???Type sertraline 100 mg tablet 100 mg PO QHS mental health 06/13/25 History lisinopril 10 mg tablet 10 mg PO QHS blood pressure 06/13/25 History metformin 500 mg tablet,extended 500 mg PO BID 11/29/23 06/13/25 Hi story release 24 hr vitamin E (dl, acetate) 180 mg 180 mg PO BID #60 caps 06/06/24 Rx (400 unit) capsule Hydrocortisone 2.5%/lidocaine 5% #42 ea 11/10/24 06/13/25 Rx suppository (cmpd) cholecalciferol (vitamin D3) 125 125 mcg PO DAILY 03/07/25 06/13/25 History mcg (5,000 unit) tablet (Vitamin D3) magnesium 250 mg tablet 250 mg PO DAILY 03/07/25 06/13/25 History Subjective Details: Patient is a 50 y/o F I am following s/p lateral internal sphincterotomy by Dr. Swann on 05/29 and s/p I D left sided perirectal abscess by Dr. Swann on 06/06/25. Patient returns for a follow-up noting she has completed her antibiotics that were prescribed last Wednesday. She continues to note drainage from the left lateral open wound. She notes drainage color is serosanguineous. She notes seeing Dr. Foss last Wednesday for a concern of a possible right gluteal abscess. Ultrasound was used by Dr. Foss which only noted edema of the firm area of right gluteus, no fluid collection was noted. There was faint erythema noted at that time. Patient notes the area has become more focal and less broad in size. She also notes an area of tenderness/ecchymosi s of the left forearm region. She notes this was the area of the initial IV which had infiltrated. She denies using any warm compresses. She notes the vessel is raised and tender (like a bruise). She denies the area becoming any worse. Objective Details: Anus, left lateral- open wound with healthy granulation tissue noted. No active drainage noted. No erythema noted Right inner gluteal area near the anus- 4 cm focal firm area with no erythema noted. No fluctuance noted. Likely dependent edema. Coding Level of Care Code Global Post Op Diagnoses Status post incision and drainage Z98.890 [facility] Medical History (Updated 06/12/25 @ 00:00 by Background Daemon) Normal Holter exam Anal fissure Effusion, left knee Diabetes Restless legs Shortness of breath on exertion Leg cramps Cardiology follow-up encounter History of echocardiogram History of stress test Nonrheumatic mitral valve disorder Fatty liver Wears glasses Depression Anxiety Back pain Non-smoker History of edema Hypertension Labral tear of right hip joint Segmental and somatic dysfunction of pelvic region Segmental and somatic dysfunction of lumbar region Segmental and somatic dysfunction of thoracic region Segmental and somatic dysfunction of cervical region Surgical History (Updated 06/12/25 @ 00:00 by Background Daemon) Status post incision and drainage Hx of knee surgery Hx of cystoscopy History of adenoidectomy History of laparoscopic appendectomy ( 09/03/21) History of History of lithotripsy History of tonsillectomy History of colonoscopy ( 2015) History of hysterectomy ( 2011) History of cholecystectomy ( 2001) Family History Mother Hypertension Thyroid disorder Depression Rheumatoid arthritis Grandmother Parkinsons disease Social History household members: spouse and children housing: house number of children: 3 current occupational status: employed pets and animals: Yes Smoking Status: Never smoker alcohol intake: never substance use type: does not use caffeine: Yes (occasional) what type of physical activity do you participate in: none seatbelt use: always do you feel safe at home: Yes Assessment and Plan (No Qualifiers) Assessment and Plan (1) Status post incision and drainage: Status: Acute Comment: For perirectal abscess Plan: No further antibiotic treatment needed Recommend continuing sitz bathes with Epsom salts (more content not included)... Normal [facility] Surgery Visit Reporton 06-08 Surgery Visit Report [facility] [address] [place] [address] OFFICE VISIT Date of Service: 06/08/25 MR#: [id number] Acct: [id number] Name: ELIZABETH BABB Rep #: [id number] 1 : 1975 Provider: Dr. Madina monsivais MD Age/Sex: 50/F Location: [facility] Status: Signed Intake Vital Signs 06/06/25 09:48 06/08/25 13:25 Height 5 ft 6 in 5 ft 6 in Intake Visit Reasons: YANCI RECTAL ABSCESS Chief Complaint: yanci rectal abscess Is patient in pain?: Yes (Right buttock pain) Allergies latex Allergy (Verified 06/08/25 14:17) Swelling, itching Penicillins (PCN) Allergy (Verified 06/08/25 14:17) other Sulfa (Sulfonamide Antibiotics) Allergy (Verified 06/08/25 14:17) Hives, welts Medications ???Medication ???Instructions ???Recorded ???Confirmed ???Type sertraline 100 mg tablet 100 mg PO QHS mental health 06/08/25 History lisinopril 10 mg tablet 10 mg PO QHS blood pressure 06/08/25 History metformin 500 mg tablet,extended 500 mg PO BID 11/29/23 06/08/25 Hi story release 24 hr vitamin E (dl, acetate) 180 mg 180 mg PO BID #60 caps 06/06/24 Rx (400 unit) capsule Hydrocortisone 2.5%/lidocaine 5% #42 ea 11/10/24 06/08/25 Rx suppository (cmpd) cholecalciferol (vitamin D3) 125 125 mcg PO DAILY 03/07/25 06/08/25 History mcg (5,000 unit) tablet (Vitamin D3) magnesium 250 mg tablet 250 mg PO DAILY 03/07/25 06/08/25 History Subjective Details: 50-year-old female presents due to questionable new soreness on the right gluteal cheek. Patient status post lateral stricturotomy and then abscess status post I D and hospitalization for the abscess. Patient show and just left the hospital yesterday. She notes that she had little bit of redness and some soreness on the right gluteal cheek and was concerned if something else could be developing. Objective Details: Right gluteal cheek faint erythema, mildly sore, bedside ultrasound shows some edema of the tissue but no area of abscess. Previous I D site healing well???okay to leave packing out as skin edges are further apart Coding Level of Care Code Global Post Op Diagnoses Status post incision and drainage Z98.890 [facility] Medical History Normal Holter exam Anal fissure Effusion, left knee Diabetes Restless legs Shortness of breath on exertion Leg cramps Cardiology follow-up encounter History of echocardiogram History of stress test Nonrheumatic mitral valve disorder Fatty liver Wears glasses Depression Anxiety Back pain Non-smoker History of edema Hypertension Labral tear of right hip joint Segmental and somatic dysfunction of pelvic region Segmental and somatic dysfunction of lumbar region Segmental and somatic dysfunction of thoracic region Segmental and somatic dysfunction of cervical region Surgical History (Updated 06/07/25 @ 11:[address] Madina Foss MD) Status post incision and drainage Hx of knee surgery Hx of cystoscopy History of adenoidectomy History of laparoscopic appendectomy ( 09/03/21) History of History of lithotripsy History of tonsillectomy History of colonoscopy ( 2015) History of hysterectomy ( 2011) History of cholecystectomy ( 2001) Family History Mother Hypertension Thyroid disorder Depression Rheumatoid arthritis Grandmother Parkinsons disease Social History household members: spouse and children housing: house number of children: 3 current occupational status: employed pets and animals: Yes Smoking Status: Never smoker alcohol intake: never substance use type: does not use caffeine: Yes (occasional) what type of physical activity do you participate in: none seatbelt use: always do you feel safe at home: Yes Assessment and Plan (No Qualifiers) Assessment and Plan (1) Status post incision and drainage: Status: Acute Comment: For perirectal abscess Plan Discussed with patient that right gluteal cheek did not have any evidence of abscess there is some edema of the tissue per bedside ultrasound the patient is on clindamycin. Recommend her continue and complete the course of antibiotics. Also informed patient she could hold off on packing as the skin edges on the I D site were far enough off apart. Patient has a follow-up appointment next week. Patient no further questions at this time. Madina Foss M.D. Pager: [phone] [facility] [address] [place] [address], [facility], [address] [place] [address] Office: [phone] Plan Details Goals Barriers: Goals Decrease spasm Impr (more content not included)... Normal [facility] Discharge Instructionon Discharge Instruction [facility] Medical Records Department [address] [place], [place] [id number] Instructions for Home/Discharge Instructions 06/07/25 1139 MR#: [id number] Acct: [id number] Name: ELIZABETH BABB Rep #: [id number] : 1975 50 From: Madina Foss MD PCP: KENISHA Pham Status:ADM VALERIE Discharge Instructions Diet Discharge Diet: Light diet - advance as tolerated Activity Discharge Activity: May Not Drive (while taking narcotic pain medications.) May shower in (days): 1 Lifting Restrictions: Continue previous lifting restrictions from sphincterotomy Dressing / Incision Call your doctor if your incision/area has: Continuous Slow Oozing, Sudden Increased Bleeding, Increased Pain/ Swelling, Increased Redness, Foul Smelling Discharge and Swelling at the incision site Call your doctor if you observe: Fever of 101 or Higher Change Dressing in: 1 day (Packed with half-inch iodoform daily x 1 week) Cleanse incision/area with: Soap Water Follow Up Care Please Follow Up With: Riley Swann MD When: Keep previously scheduled appointment with Dr. Hays; after 5 PM and on the weekends call [phone] with any concerns. Test Results: Test results from this visit will be discussed in further detail at your follow-up appointment, if applicable. Discharge Plan Admission Admit Date/Time: 06/06/25 08:10 Attending Provider: Riley Swann Primary Care Provider: Silvana Ward NP Discharge Orders/Prescriptions Prescriptions: Continued clindamycin HCl [Cleocin HCl] 300 mg capsule 300 mg PO TID 7 Days Qty: 21 0RF sertraline 100 MG tablet 100 mg PO QHS lisinopril 10 MG tablet 10 mg PO QHS cholecalciferol (vitamin D3) [Vitamin D3] 125 mcg (5,000 unit) tablet 125 mcg PO DAILY magnesium 250 mg tablet 250 mg PO DAILY metformin 500 mg tablet extended release 24 hr 500 mg PO BID vitamin E (dl, acetate) 180 mg (400 unit) capsule 180 mg PO BID Qty: 60 3RF (DME) Hydrocortisone 2.5%/lidocaine 5% suppository (cmpd) Suppository See Rx Instructions .Route Qty: 42 0RF Rx Instructions: apply to rectum BID Discontinued (DME) Diltiazem 2%/Lidocaine 5% ointment (compound) Ointment See Rx Instructions .Route Qty: 1 0RF Rx Instructions: As directed Referrals / Follow Up: Silvana Ward NP, INSULATION INSPECTOR-C [Primary Care Provider, Medical] Disposition Disposition (needs filled in before D/C Order can be placed): Home, Self Care 06/07/25 1142 Madina Foss MD CC: KENISHA Ward; Dr. Riley Swann MD Signed Normal [facility] Electrocardiogram reportOrde red By: Be Padilla on 06-07-[address] [facility] [address] [place] [address] 12 Lead EKG 06/06/25 1028 MR#: [id number] Acct: [id number] Name: ELIZABETH BABB Rep #:[id number] : 1975 50 From: Be Padilla MD Attending Dr: Dr. Riley Swann MD Status: ADM VALERIE Ordering Dr: Pasquale Lo MD Date: 1 Location: [facility] [place] Sex: F C Admitted: 06/06/25 Test Reason : PRE-OP Blood Pressure : */* mmHG Vent. Rate : 72 BPM Atrial Rate : 72 BPM P-R Int : 160 ms QRS Dur : 100 ms QT Int : 378 ms P-R-T Axes : 31 38 5 degrees QTcB Int : 413 ms Normal sinus rhythm Normal ECG When compared with ECG of 08-Mar-2025 10:29, No significant change was found Confirmed by BE PADILLA MD ([id number]), editor producer SHEILA FRANCISCO ([id number]) on 55:48:07 AM Referred By: KACI Confirmed By: BE PADILLA MD 06/07/25 0548 Date _ Be Padilla MD CC: KENISHA Ward; Dr. Pasquale Lo MD; Dr. Riley Swann MD ~ Signed [facility] Other 12 Lead EKGon 06-06-[address] [facility] [address] [place] [address] 12 Lead EKG 06/06/25 1028 MR#: [id number] Acct: [id number] Name: ELIZABETH BABB Rep #: [id number] : 1975 50 From: Be Padilla MD Attending Dr: Dr. Riley Swann MD Status: AD Hari PADILLA Ordering Dr: Pasquale Lo MD Date: 06/06/25 Location: [facility] [place] Sex: F C Admitted: 06/06/25 Test Reason : PRE-OP Blood Pressure : */* mmHG Vent. Rate : 72 BPM Atrial Rate : 72 BPM P-R Int : 160 ms QRS Dur : 100 ms QT Int : 378 ms P-R-T Axes : 31 38 5 degrees QTcB Int : 413 ms Normal sinus rhythm Normal ECG When compared with ECG of 08-Mar-2025 10:29, No significant change was found Confirmed by THUY HILLIARD, BE ([id number]), editor producer SHEILA FRANCISCO ([id number]) on 06/07/2025 5:48:07 AM Referred By: KACI Confirmed By: BE PADILLA MD 06/07/25 0548 Date Be Padilla MD CC: KENISHA Ward; Dr. Pasquale Lo MD; Dr. Riley Swann MD Signed Normal [facility] Absolute lymphocyte countOrd ered By: Caden Cabezas on 06-06-2025 Lymphocytes Auto (Unsp spec) [#/Vol] 1.62 10*3/uL 0.83-4.51 [facility] Absolute neutrophil countOrd ered By: Caden Cabezas on 06-06-2025 Neutrophils (Bld) [#/Vol] 8.5 10*3/uL High 2.0-7.7 [facility] Anion gap in Serum or Plasma Ordered By: Caden Cabezas on 06-06-2025 Anion gap [Moles/Vol] 12 mmol/L 5-15 [facility] Automated lymphocyte count a s percentage of total leukocytesOrdered By: Caden Cabezas on 06-06-2025 Lymphocytes/100 WBC Auto (Unsp spec) 14.3 % Low 19-41 [facility] BUN/creatinine ratioOrdered By: Caden Cabezas on 06-06-2025 Urea nitrogen/Creatinine [Mass ratio] 21.5 mg/mg High 10- [facility] Basic Metabolic Profile (BMP )on 06-06-2025 BUN/CRE 21.5 RATIO High 10- [facility] Comment on above: Performed By: #### L 500.2500, L100.0100, L503.6005 #### [facility] [address] [place], [address] Calcium [Mass/Vol] 9.8 mg/dL Normal 7.6-11.0 [facility] Comment on above: Performed By: #### L 500.2500, L100.0100, L503.6005 #### [facility] [address] [place], [address] Chloride [Moles/Vol] 101 mmol/L Normal 98-108 [facility] Comment on above: Performed By: #### L 500.2500, L100.0100, L503.6005 #### [facility] [address] [place], [address] CO2 [Moles/Vol] 23.7 mmol/L Normal 21.0-32.0 [facility] Comment on above: Performed By: #### L 500.2500, L100.0100, L503.6005 #### [facility] [address] [place], [address] Creatinine [Mass/Vol] 0.87 mg/dL Normal 0.70-1.20 [facility] Comment on above: Performed By: #### L 500.2500, L100.0100, L503.6005 #### [facility] [address] [place], [address] ECRCL 96.60 ml/min Normal 50-250 [facility] Comment on above: Performed By: #### L 500.2500, L100.0100, L503.6005 #### [facility] [address] [place], [address] GAP 12 Normal 5-15 [facility] Comment on above: Performed By: #### L 500.2500, L100.0100, L503.6005 #### [facility] [address] [place], [address] GFR/1.73 sq M.predicted among non-blacks MDRD (S/P/Bld) [Vol rate/Area] 81 mL/min/{1.73_m2} Normal >60 [facility] Comment on above: Result Comment: mL/m in/1.73m2 CKD-EPI Creatinine Equation (2020) Performed By: #### L 500.2500, L100.0100, L503.6005 #### [facility] [address] [place], [address] Glucose [Mass/Vol] 148 mg/dL High 70-99 [facility] Comment on above: Performed By: #### L 500.2500, L100.0100, L503.6005 #### [facility] [address] [place], [address] Potassium [Moles/Vol] 4.6 mmol/L Normal 3.3-5.1 [facility] Comment on above: Performed By: #### L 500.2500, L100.0100, L503.6005 #### [facility] [address] [place], [address] Sodium [Moles/Vol] 137 mmol/L Normal 133-145 [facility] Comment on above: Performed By: #### L 500.2500, L100.0100, L503.6005 #### [facility] [address] [place], [address] Urea nitrogen [Mass/Vol] 19 mg/dL Normal 4-19 [facility] Comment on above: Performed By: #### L 500.2500, L100.0100, L503.6005 #### [facility] [address] [place], [address] Basophil percentageOrdered B y: Caden Cabezas on 06-06-2025 Basophils/100 WBC (Bld) 0.4 % 0-1 [facility] Bedside Glucoseon 06-06-2025 FINGERSTICK GLU 108 mg/dL High 74-106 [facility] Comment on above: Result Comment: XOCHILT TERAN OF PATIENT CARE PER NURSING PROTOCOL Performed By: #### L 501.080 ####[facility] [address] [place], [address] CBC W/Diff, Automatedon 10 Absolute Lymph 1.62 X10 3/uL Normal 0.83-4.51 [facility] Comment on above: Performed By: #### L 500.2500, L100.0100, L503.6005 #### [facility] [address] [place], [address] Absolute Neut 8.5 X10 3/uL High 2.0-7.7 [facility] Comment on above: Performed By: #### L 500.2500, L100.0100, L503.6005 #### [facility] [address] [place], [address] Basophils/100 WBC (Bld) 0.4 % Normal 0-1 [facility] Comment on above: Performed By: #### L 500.2500, L100.0100, L503.6005 #### [facility] [address] [place], [address] Eosinophils/100 WBC (Bld) 1.9 % Normal 0-5 [facility] Comment on above: Performed By: #### L 500.2500, L100.0100, L503.6005 #### [facility] [address] [place], [address] Erythrocyte distribution width (RBC) [Ratio] 11.7 % Normal 11.6-14.6 [facility] Comment on above: Performed By: #### L 500.2500, L100.0100, L503.6005 #### [facility] [address] [place], [address] Hematocrit (Bld) [Volume fraction] 40.9 % Normal 37-47 [facility] Comment on above: Performed By: #### L 500.2500, L100.0100, L503.6005 #### [facility] [address] [place], [address] Hemoglobin (Bld) [Mass/Vol] 14.0 g/dL Normal 12.0-15.0 [facility] Comment on above: Performed By: #### L 500.2500, L100.0100, L503.6005 #### [facility] [address] [place], [address] IG% 0.500 Normal 0.0-0.9 [facility] Comment on above: Result Comment: IG% - Immature Granulocytes (promyelocytes, myelocytes and metamyelocytes) > 1% indicates that a LEFT SHIFT is Present. Performed By: #### L 500.2500, L100.0100, L503.6005 #### [facility] [address] [place], [address] Lymphocytes/100 WBC (Bld) 14.3 % Low 19-41 [facility] Comment on above: Performed By: #### L 500.2500, L100.0100, L503.6005 #### [facility] [address] [place], [address] MCH (RBC) [Entitic mass] 29.2 pg Normal 27.0-32.0 [facility] Comment on above: Performed By: #### L 500.2500, L100.0100, L503.6005 #### [facility] [address] [place], [address] MCHC (RBC) [Mass/Vol] 34.2 g/dL Normal 32-36 [facility] Comment on above: Performed By: #### L 500.2500, L100.0100, L503.6005 #### [facility] [address] [place], [address] MCV (RBC) [Entitic vol] 85.2 fL Normal 81-99 [facility] Comment on above: Performed By: #### L 500.2500, L100.0100, L503.6005 #### [facility] [address] [place], [address] Monocytes/100 WBC (Bld) 7.7 % Normal 0-10 [facility] Comment on above: Performed By: #### L 500.2500, L100.0100, L503.6005 #### [facility] [address] [place], [address] Neutrophils/100 WBC (Bld) 75.2 % High 47-70 [facility] Comment on above: Performed By: #### L 500.2500, L100.0100, L503.6005 #### [facility] [address] [place], [address] Nucleated RBC (Bld) [#/Vol] 0 10*3/uL Normal 0-5 [facility] Comment on above: Performed By: #### L 500.2500, L100.0100, L503.6005 #### [facility] [address] [place], [address] Platelet mean volume (Bld) [Entitic vol] 9.4 fL Normal 6.2-12.0 [facility] Comment on above: Performed By: #### L 500.2500, L100.0100, L503.6005 #### [facility] [address] [place], [address] Platelets (Bld) [#/Vol] 303 10*3/uL Normal 150-450 [facility] Comment on above: Performed By: #### L 500.2500, L100.0100, L503.6005 #### [facility] [address], [address] RBC (Bld) [#/Vol] 4.80 10*6/uL Normal 4.2-5.4 [facility] Comment on above: Performed By: #### L 500.2500, L100.0100, L503.6005 #### [facility] [address] [place], [address] RDW SD 35.9 fl Normal 35.1-43.9 [facility] Comment on above: Performed By: #### L 500.2500, L100.0100, L503.6005 #### [facility] [address] [place], [address] WBC (Bld) [#/Vol] 11.3 10*3/uL High 4.4-11.0 [facility] Comment on above: Performed By: #### L 500.2500, L100.0100, L503.6005 #### [facility] [address] [place], [address] Carbon dioxide, total [Moles /volume] in Central venous bloodOrdered By: Caden Cabezas on 06-06-2025 CO2 [Moles/Vol] 23.7 mmol/L 21.0-32.0 [facility] Chloride assayOrdered By: Keeley Cabezas on 06-06-2025 Chloride [Moles/Vol] 101 mmol/L 98-108 [facility] Emergency Department Summary on 06-06-2025 Emergency Department Summary [facility] Medical Records Department [address] [place] [address] Emergency Department Summary 06/06/25 MR#: [id number] Acct: [id number] Name: ELIZABETH BABB Rep #: [id number] : 1975 50 From: Caden Cabezas DO PCP: KENISHA Pham Status:REG ER Location: ED HPI History of Present Illness Chief Complaint: Wound Check Informant: patient and spouse/S.O. Narrative Narrative: Patient is a 50-year-old female with past medical history of hypertension anxiety and depression and fbf-srfrpjl-dhgbeiob t diabetes. On May 29 she underwent surgery by Dr. Swann for an anal fissure. She states the surgery went well and afterwards she did not experience any type of pain. However after a few days she noticed pain and swelling in the left gluteal region. She then followed up with the general surgeon on June 04. His note at that visit indicates that he felt the area was a small abscess and he was able to express the remaining purulent material. He then started her on clindamycin. Patient states she is taking the clindamycin as directed but has continued to have discharge and reports increased pain and swelling in the region. She denies any true fevers but reports she has had subjective fevers and chills and states her temperature at home was low-grade fever at 99.8. As she feels symptoms are worsening despite seeing the surgeon the other day and taking her antibiotic she presents for evaluation [facility] Medical History Normal Holter exam Anal fissure Effusion, left knee Diabetes Restless legs Shortness of breath on exertion Leg cramps Cardiology follow-up encounter History of echocardiogram History of stress test Nonrheumatic mitral valve disorder Fatty liver Wears glasses Depression Anxiety Back pain Non-smoker History of edema Hypertension Labral tear of right hip joint Segmental and somatic dysfunction of pelvic region Segmental and somatic dysfunction of lumbar region Segmental and somatic dysfunction of thoracic region Segmental and somatic dysfunction of cervical region Home Medications ???Medication ???Instructions ???Recorded ???Last Taken ???Type sertraline 100 mg tablet 100 mg PO QHS mental health 05/28/25 History lisinopril 10 mg tablet 10 mg PO QHS blood pressure 05/28/25 History metformin 500 mg tablet,extended 500 mg PO BID 11/29/23 05/28/25 Hi story release 24 hr vitamin E (dl, acetate) 180 mg 180 mg PO BID #60 caps 06/06/24 Un known Rx (400 unit) capsule Diltiazem 2% / Lidocaine 5% #1 ea 11/09/24 Unknown Rx ointment (compound) (Diltiazem 2%/Lidocaine 5% ointment (compound)) Hydrocortisone 2.5%/lidocaine 5% #42 ea 11/10/24 Unknown Rx suppository (cmpd) cholecalciferol (vitamin D3) 125 125 mcg PO DAILY 03/07/25 Unknown History mcg (5,000 unit) tablet (Vitamin D3) magnesium 250 mg tablet 250 mg PO DAILY 03/07/25 Unknown H istory tirzepatide 2.5 mg/0.5 mL 2.5 mg subcut STERN 05/25/25 05/20/25 History subcutaneous pen injector (Mounjaro) clindamycin HCl 300 mg capsule 300 mg PO TID 7 days #21 caps 02/21 Unknown Rx (Cleocin HCl) fluconazole 150 mg tablet 150 mg PO QDAY 7 days #7 tabs 02/21 Unknown Rx Allergy/AdvReac Type Severity Reaction Status Date / Time latex Allergy Swelling, Verified 06/06/25 05:31 itching Penicillins (PCN) Allergy other Verified 06/06/25 05:31 Sulfa (Sulfonamide Allergy Hives, Verified 06/06/25 05:31 Antibiotics) welts Family History Mother Hypertension Thyroid disorder Depression Rheumatoid arthritis Grandmother Parkinsons disease Surgical History Hx of knee surgery Hx of cystoscopy History of adenoidectomy History of laparoscopic appendectomy ( 09/03/21) History of History of lithotripsy History of tonsillectomy History of colonoscopy ( 2015) History of hysterectomy ( 2011) History of cholecystectomy ( 2001) Social History household members: spouse and children housing: house number of children: 3 current occupational status: employed pets and animals: Yes Smoking Status: Never smoker alcohol intake: never substance use type: does not use caffeine: Yes (occasional) what type of physical activity do you participate in: none seatbelt use: always do you feel safe at home: Yes ROS ROS ED Constitutional Constitutional ED: Reports chills, fever(s) and subjective ENT ENT ED: Denies sore throat Cardiovascular Cardiovascular: Denies chest pain Respiratory/Chest Respiratory/Chest: Denies cough or dyspnea Gastrointestinal (more content not included)... Normal [facility] Eosinophil percentageOrdered By: Caden Cabezas on 06-06-2025 Eosinophils/100 WBC (Bld) 1.9 % 0-5 [facility] Erythrocyte distribution wid th ratioOrdered By: Caden Cabezas on 06-06-2025 Erythrocyte distribution width (RBC) [Ratio] 11.7 % 11.6-14.6 [facility] Erythrocyte distribution wid th standard deviationOrdered By: Caden Cabezas on 06-06-2025 Erythrocyte distribution width (RBC) [Ratio] 35.9 fl 35.1-43.9 [facility] Glomerular filtration rate ( GFR) estimation/1.73 sq m using serum, plasma, or whole bOrdered By: Caden Cabezas on 06-06-2025 GFR/1.73 sq M.predicted among non-blacks MDRD (S/P/Bld) [Vol rate/Area] 81 mL/min/{1.73_m2} >60 [facility] Comment on above: mL/min/1.73m2 CKD-EP I Creatinine Equation (2020) [facility] deOrdered By: Riley Swann on 06-06-2025 Glucose [Mass/Vol] 108 mg/dL High 74-106 [facility] Comment on above: MANAGEMENT OF PATIEN T CARE PER NURSING PROTOCOL Hematocrit Auto (Bld) [Volum e fraction]Ordered By: Caden Cabezas on 06-06-2025 Hematocrit (Bld) [Volume fraction] 40.9 % 37-47 [facility] Hemoglobin A1con 06-06-2025 HbA1c (Bld) [Mass fraction] 6.1 % High <=5.6 [facility] Comment on above: Order Comment: Comme nts: can run on blood already in lab Result Comment: Norm al < 5.7 % Prediabetic 5.7 - 6.4 % Diabetic >or= 6.5 % Please note range changes. Performed By: #### L 216.0263 #### [facility] [address] [place], [place], [id number] Hemoglobin A1c percentageOrd ered By: Pasquale Lo on 06-06-2025 HbA1c (Bld) [Mass fraction] 6.1 % High <5.7 [facility] Comment on above: Normal < 5.7 % Predi abetic 5.7 - 6.4 % Diabetic >or= 6.5 % Please note range changes. Hemoglobin measurementOrdere d By: Caden Cabezas on 06-06-2025 Hemoglobin (Bld) [Mass/Vol] 14.0 g/dL 12.0-15.0 [facility] Immature granulocytes/100 WB C Auto (Bld)Ordered By: Caden Cabezas on 06-06-2025 Immature granulocytes/100 WBC (Bld) 0.500 % 0.0-0.9 [facility] Comment on above: IG% - Immature Granu locytes (promyelocytes, myelocytes and metamyelocytes) > 1% indicates that a LEFT SHIFT is Present. Lactic Acidon 06-06-2025 Lactate [Moles/Vol] 1.4 mmol/L Normal 0.0-2.0 [facility] Comment on above: Order Comment: Y Performed By: #### L 500.2500, L100.0100, L503.6005 #### [facility] [address] [place], [place], [address] Lactic acid measurementOrder ed By: Caden Cabezas on 06-06-2025 Lactate [Moles/Vol] 1.4 mmol/L 0.0-2.0 [facility] MCV (mean corpuscular volume ) determinationOrdered By: Caden Cabezas on 06-06-2025 MCV (RBC) [Entitic vol] 85.2 fL 81-99 [facility] MR/POSTOP.ANEon 06-06-2025 MR/POSTOP.ANE [facility] Medical Records Department [address] [place] [address] Anesthesia Postop Eval I 06/06/25 1404 MR#: [id number] Acct: [id number] Name: ELIZABETH BABB #: [id number] : 1975 50 From: Gentry Slater CRNA PCP: KENISHA Pham Status:ADM VALERIE Y Race: C Location: [place] [address] Anesthesia: Postop Eval I Current Vital Signs Temperature: 98.3 F Pulse Rate: 84 Blood Pressure: 129/74 Respiratory Rate: 20 Pulse Ox: 97 Oxygen Delivery Method: Room Air Assessment Airway patent: Yes Spontaneous unlabored respirations: Yes Mental status: Awake and Calm nausea: No Vomiting: No Anesthesia Complication: No Fluid Hydration Crystalloid volume administer (ml): 600 Total IV fluid infused: 600 Progress Note Anesthesia document: Postop Eval 1 completed: Yes 06/06/25 1405 Date Gentry Slater TOURING PRODUCTION MANAGER Cosigner Signature: Date CC: Signed Normal [facility] MR/[id number] 06-06-2025 [facility] Medical Records Department [address] [place] [address] Anesthesia Postop Eval II 06/06/25 1513 MR#: [id number] Acct: [id number] Name: CAREN BABBSSNANCY Almaguer Rep #: [id number] : 1975 50 From: Pasquale Lo MD PCP: KENISHA Pham Status:ADM VALERIE Y Race: C Location: [place] [address] Anesthesia Postop Eval I Sum Postop Eval Completion status Anesthesia document: Postop Eval 1 completed: Yes Anesthesia Postop Eval I Summary Anesthesia Postop Eval I Summary: Anesthesia Postop Eval I: Assessment Summary Airway patent Yes 06/06/25 14:05 TOURING PRODUCTION MANAGER.[email or web address] Spontaneous unlabored Yes 06/06/25 14:05 TOURING PRODUCTION MANAGER.[email or web address] respirations Mental status Awake,Calm 06/06/25 14:05 TOURING PRODUCTION MANAGER.[email or web address] nausea No 06/06/25 14:05 TOURING PRODUCTION MANAGER.[email or web address] Vomiting No 06/06/25 14:05 TOURING PRODUCTION MANAGER.[email or web address] Anesthesia Postop Eval I: Fluid Summary Crystalloid volume administer 600 06/06/25 14:05 TOURING PRODUCTION MANAGER.[email or web address] (ml) Colloids volume administered ( ml) Blood Product volume administered (ml) Total IV fluid infused 600 06/06/25 14:05 TOURING PRODUCTION MANAGER.[email or web address] Anesthesia Postop Eval I: Summary Notes Anesthesia Complication No 06/06/25 14:05 TOURING PRODUCTION MANAGER.[email or web address] Anesthesia Complication Comment: Post-operative progress note Anesthesia: Postop Eval II Evaluation Mental status: Awake and Calm Pain Level: 1 nausea: No Vomiting: No Complications Anesthesia Complication: No 06/06/25 1513 Date Pasquale Lo MD Cosigner Signature: Date CC: Signed Normal [facility] Mean corpuscular hemoglobin (MCH) determinationOrdered By: Caden Cabezas on 06-06-2025 MCH (RBC) [Entitic mass] 29.2 pg 27.0-32.0 [facility] Mean corpuscular hemoglobin concentration (MCHC) determinationOrdered By: Caden Cabezas on 06-06-2025 MCHC (RBC) [Mass/Vol] 34.2 g/dL 32-36 [facility] Mean platelet volume determi nationOrdered By: Caden Cabezas on 06-06-2025 Platelet mean volume (Bld) [Entitic vol] 9.4 fL 6.2-12.0 [facility] Monocyte percentageOrdered B y: Caden Cabezas on 06-06-2025 Monocytes/100 WBC (Bld) 7.7 % 0-10 [facility] Neutrophil percentageOrdered By: aCden Cabezas on 06-06-2025 Neutrophils/100 WBC (Bld) 75.2 % High 47-70 [facility] Nucleated red blood cell per centageOrdered By: Caden Cabezas on 06-06-2025 Nucleated RBC/100 WBC (Bld) [Ratio] 0 % 0-5 [facility] Operative Reporton Operative Report [facility] Medical Records Department [address] [place] [place] [address] Operative Report 06/06/25 1404 MR#: [id number] Acct: [id number] Name: ELIZABETH BABB Rep #: [id number] : 1975 50 From: Riley Swann MD PCP: KENISHA Pham Status:ADM VALERIE Location: CA3 [id number] Procedures Digestive 40xxx-49xxx: [id number] Incision of rectal abscess Operative Report (Standard) Operative Information Date of Procedure: 06/06/25 Pre-Operative Diagnosis: left side perirectal abscess Post-Operative Diagnosis: Same Surgery/Procedure Performed: Incision and drainage of left sided perirectal abscess tax accounting manager: No Type of Anesthesia: General and Local RN Documented Start/Stop Times: Operation Date: 06/06/25 13:00 Case Time Into Pre-Op 06/06/25 11:40 Anesthesia Start 06/06/25 13:13 Into Room 06/06/25 13:13 Procedure Start 06/06/25 13:33 Procedure End 06/06/25 13:56 Anesthesia End 06/06/25 13:59 Out of Room 06/06/25 13:59 Procedure Start Time: 13:33 Procedure Stop Time: 13:56 Select all DRAINS/GRAFTS/IMPLAN TS that apply: Drains Drain details: Half-inch iodoform gauze packed into wound Estimated Blood Loss: 15 mL Specimen collected: No Description of surgery: The patient is a 50-year-old female status post a recent 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 This was performed about a week ago. She initially was doing well following the surgery but then developed pain as well as some fevers and chills. I saw the patient in the office on Wednesday she had a small amount of purulent tinged drainage but no obvious abscess was appreciated at that time. I placed her on antibiotics and recommend that she contact me should this not improve. She presented to the emergency department overnight with pain. I had the ER staff do a CT scan for further evaluation. A 4 cm abscess was encountered. I saw the patient the emergency department and recommended drainage in the operating room. We discussed the details of the planned procedure and she wished to proceed. She was brought to the operating room today following informed consent. Preoperative antibiotics were given and a timeout was performed. She was placed supine spine on the operative table with legs placed in a modified lithotomy position after general anesthesia was induced. The area was then prepped and draped in the usual sterile manner. Local anesthetic was injected into the vicinity. The abscess was already draining somewhat through the skin. This was injected with local anesthetic and then a 15 blade was then used to make a cruciate incision. Upon doing so, copious amount of purulent drainage was able to be expressed. This was suctioned out. The abscess cavity was manually deloculated. The abscess cavity was then copiously irrigated with saline. Hemostasis was very good. The wound was then packed with half-inch iodoform gauze.. Local anesthetic was then injected in a bilateral pudendal block manner. A gauze dressing and mesh panties were applied. She was awake from anesthesia and taken to recovery in good condition Surgical Findings: Left-sided perirectal abscess Complications Complications: No Admit VTE Documentation VTE Present on Admission: No VTE Mechan Device Prophylaxis: SCD's VTE Pharm Prophylaxis ordered?: No Reason prophylaxis not ordered: Treatment Not Indicated 06/06/25 1411 Cosigner Signature (if applicable): CC: INSULATION INSPECTOR-C Silvana Ward; Dr. Riley Swann MD Signed Normal [facility] Pelvis WITH IV Contraston Pelvis WITH IV Contrast [facility] Imaging Services [address] [place] [address] Pelvis WITH IV Contrast MR#: [id number] Acct: [id number] Name: ELIZABETH BABB Rep #: [id number] : 1975 F 50 From: Jason Damico MD PCP: KENISHA Pham Status: REG ER Study: Pelvis WITH IV Contrast Date of Exam: 06/06/25 Exam# [id number] Ordering Dr: Caden Cabezas DO PROCEDURE: PELVIS WITH IV CONTRAST 06/06/2025 REASON FOR EXAM: LEFT PERIRECTAL ABSCESS TECHNIQUE: Procedure Code: CTPELW Modality: CT Procedure: PELVIS WITH IV CONTRAST CONTRAST: Isovue 300 VOLUME: 83 mL One or more dose reduction techniques were used (e.g., Automated exposure control, adjustment of the mA and/or kV according to patient size, use of iterative reconstruction technique). RADIATION DOSE SUMMARY: CTDlvol: 22 mGy DLP: 935 mGycm COMPARISON: November 05, 2023 FINDINGS: Bladder: Normal Reproductive Organs: Hysterectomy. No adnexal mass. Ovaries are normal. Bowel: Partially imaged colon and small bowel are unremarkable. The rectum is unremarkable. Immediately caudal to and abutting the anus left posterolaterally (4-6 o'clock in the axial plane) there is an irregular, developing fluid collection with low-density centrally an irregular, thickened wall measuring 4.6 x 3.7 x 2.7 cm. It is located at the medial aspect of the left gluteal fold directly adjacent to the anus. Continuity to the anus is not seen on this exam. MRI with contrast and rectal gel is more sensitive in this regard; consider that examination if the abnormality persists despite treatment. Appendix: Surgically absent Lymph nodes: None appear enlarged. Vasculature: Normal Peritoneum / Retroperitoneum: No free air, free fluid or mass Bones: Unremarkable. CT/Pelvis WITH IV Contrast IMPRESSION: Immediately caudal and abutting the left posterolateral aspect of the anus is a developing abscess. It is seen along the medial aspect of the gluteal fold with dimensions above. See above description. Reading Location: [id number] CC: KENISHA Ward; Caden Cabezas DO Corduroy Brusher Operator: Signed Normal [facility] Platelet countOrdered By: Keeley Cabezas on 06-06-2025 Platelets (Bld) [#/Vol] 303 10*3/uL 150-450 [facility] Potassium measurement (mass/ volume)Ordered By: Caden Cabezas on 06-06-2025 Potassium (Unsp spec) [Mass/Vol] 4.6 mmol/L 3.3-5.1 [facility] RBC Auto (Bld) [#/Vol]Ordere d By: Caden Cabezas on 06-06-2025 RBC (Bld) [#/Vol] 4.80 10*6/uL 4.2-5.4 [facility] Serum creatinine measurement (mass/volume)Ordered By: Caden Cabezas on 06-06-2025 Creatinine [Mass/Vol] 0.87 mg/dL 0.70-1.20 [facility] Serum glucose measurement (m ass/volume)Ordered By: Caden Cabezas on 06-06-2025 Glucose [Mass/Vol] 148 mg/dL High 70-99 [facility] Serum or plasma calcium lydia urement (mass/volume)Ordered By: Caden Cabezas on 06-06-2025 Calcium [Mass/Vol] 9.8 mg/dL 7.6-11.0 [facility] Serum or plasma urea nitroge n measurement (mass/volume)Ordered By: Caden Cabezas on 06-06-2025 Urea nitrogen [Mass/Vol] 19 mg/dL 4-19 [facility] Sodium levelOrdered By: Geovanni Cabezas on 06-06-2025 Sodium [Moles/Vol] 137 mmol/L 133-145 [facility] White blood cell (WBC) count Ordered By: Caden Cabezas on 06-06-2025 WBC (Bld) [#/Vol] 11.3 10*3/uL High 4.4-11.0 [facility] Surgery Visit Reporton 06-04 Surgery Visit Report [facility] [address] [place] [address]. [address] [place] [address] OFFICE VISIT Date of Service: 06/04/25 MR#: [id number] Acct: [id number] Name: ELIZABETH BABB Rep #: [id number] : 1975 Provider: Dr. Riley alexandre MD Age/Sex: 50/F Location: [facility] Status: Signed Intake Vital Signs 05/29/25 12:23 Height 5 ft 6 in Intake Visit Reasons: S/P sphincterotomy 05-29 Chief Complaint: s/p sphincterotomy 05/29 Is patient in pain?: Yes Allergies latex Allergy (Verified 06/04/25 12:40) Swelling, itching Penicillins (PCN) Allergy (Verified 06/04/25 12:40) other Sulfa (Sulfonamide Antibiotics) Allergy (Verified 06/04/25 12:40) Hives, welts Medications ???Medication ???Instructions ???Recorded ???Confirmed ???Type sertraline 100 mg tablet 100 mg PO QHS mental health 06/04/25 History lisinopril 10 mg tablet 10 mg PO QHS blood pressure 06/04/25 History metformin 500 mg tablet,extended 500 mg PO BID 11/29/23 06/04/25 Hi story release 24 hr vitamin E (dl, acetate) 180 mg 180 mg PO BID #60 caps 06/06/24 Rx (400 unit) capsule Diltiazem 2% / Lidocaine 5% #1 ea 11/09/24 06/04/25 Rx ointment (compound) (Diltiazem 2%/Lidocaine 5% ointment (compound)) Hydrocortisone 2.5%/lidocaine 5% #42 ea 11/10/24 06/04/25 Rx suppository (cmpd) cholecalciferol (vitamin D3) 125 125 mcg PO DAILY 03/07/25 06/04/25 History mcg (5,000 unit) tablet (Vitamin D3) magnesium 250 mg tablet 250 mg PO DAILY 03/07/25 06/04/25 History tirzepatide 2.5 mg/0.5 mL 2.5 mg subcut STERN 05/25/25 06/04/25 History subcutaneous pen injector (Mounjaro) clindamycin HCl 300 mg capsule 300 mg PO TID 7 days #21 caps 02/2106/04/25 Rx (Cleocin HCl) fluconazole 150 mg tablet 150 mg PO QDAY 7 days #7 tabs 02/2106/04/25 Rx Subjective Details: The patient is a 50-year-old female who is status post a recent lateral internal sphincterotomy for an anal fissure. She is doing well until couple days ago when she began having increasing pain in the perianal area. She did also noticed some pus tinged drainage along with some chills. She called the office to be seen. Objective Details: She is alert and oriented x 3. She is in no acute distress. Examination of the perianal area reveals some induration around the left sided incision from the sphincterotomy. A small amount of pus tinged drainage was able to be expressed. The area was probed with a sterile Q-tip however no further drainage was able to be expressed. The surrounding area is tender and somewhat indurated. The fissure itself appears stable. I do not appreciate any obvious areas of fluctuance or undrained abscess. I suspect there probably is/was a wound infection at the sphincterotomy incision site Coding Level of Care Code Global Post Op Diagnoses Anal fissure K60.2 [facility] Medical History Normal Holter exam Anal fissure Effusion, left knee Diabetes Restless legs Shortness of breath on exertion Leg cramps Cardiology follow-up encounter History of echocardiogram History of stress test Nonrheumatic mitral valve disorder Fatty liver Wears glasses Depression Anxiety Back pain Non-smoker History of edema Hypertension Labral tear of right hip joint Segmental and somatic dysfunction of pelvic region Segmental and somatic dysfunction of lumbar region Segmental and somatic dysfunction of thoracic region Segmental and somatic dysfunction of cervical region Surgical History Hx of knee surgery Hx of cystoscopy History of adenoidectomy History of laparoscopic appendectomy ( 09/03/21) History of History of lithotripsy History of tonsillectomy History of colonoscopy ( 2015) History of hysterectomy ( 2011) History of cholecystectomy ( 2001) Family History Mother Hypertension Thyroid disorder Depression Rheumatoid arthritis Grandmother Parkinsons disease Social History household members: spouse and children housing: house number of children: 3 current occupational status: employed pets and animals: Yes Smoking Status: Never smoker alcohol intake: never substance use type: does not use caffeine: Yes (occasional) what type of physical activity do you participate in: none seatbelt use: always do you feel safe at home: Yes Assessment and Plan (No Qualifiers) Assessment and Plan (1) Anal fissure: Status: Acute Plan: The patient is a 50-year-old female status post a right recent lateral internal sphincterotomy surgery for (more content not included)... Normal [facility] SCRN MAMM (CAD)W/KASSIDY BILATo n 06-01-2025 SCRN MAMM (CAD)W/KASSIDY BILAT [facility] Imaging Services [address] [place] [address] SCRN MAMM (CAD)W/KASSIDY BILAT MR#: [id number] Acct: [id number] Name: ELIZABETH BABB Rep #: [id number] : 1975 F 50 From: Meena White MD PCP: KENISHA [facility] Study: SCRN MAMM (CAD)W/KASSIDY BILAT Date of Exam: 11/21 Exam# [id number] Ordering Dr: Silvana Ward NP INSULATION INSPECTOR Tyrell EXAM: SCRN MAMM (CAD)W/KASSIDY BILAT DATE: 06/01/2025 CLINICAL HISTORY: F, Age 50 y/o , SCREENING TECHNIQUE: Procedure Code: BISMWCADBTOM Modality: MG Procedure: SCRN MAMM (CAD)W/KASSIDY BILAT COMPARISON: Prior exam(s) dated 04/12/2024, 06/22/2023, 06/19/2022. FINDINGS: TISSUE DENSITY: There are scattered areas of fibroglandular density. Bilateral Breast Mammographic Findings: No significant masses, calcifications or other abnormalities are identified. BI/SCRN MAMM (CAD)W/KASSIDY BILAT IMPRESSION: There is no mammographic evidence of malignancy. OVERALL FINAL ASSESSMENT BI-RADS 1: NEGATIVE. RECOMMENDATION: Routine annual follow-up in 1 Year Additional Recommendation none A letter with findings and recommendations will be mailed to the patient. Reading Location: [id number] CC: KENISHA Ward Corduroy Brusher Operator: Signed Normal [facility] Bedside Glucoseon 05-29-2025 FINGERSTICK GLU 108 mg/dL High 74-106 [facility] Comment on above: Result Comment: XOCHILT GEMENT OF PATIENT CARE PER NURSING PROTOCOL Performed By: #### L 501.080 #### [facility] Laboratory [address] [place], [address] Discharge Instructionon 05-02 Discharge Instruction [facility] Medical Records Department [address] [address] Instructions for Home/Discharge Instructions 05/29/25 1516 MR#: [id number] Acct: [id number] Name: ELIZABETH BABB Rep #: [id number] : 1975 50 From: Riley Swann MD PCP: Silvana Ward NP-C Status:REG [facility] Discharge Instructions Diet Discharge Diet: Light diet - advance as tolerated Activity May shower in (days): 1 Ice area for (Minutes): 30 Dressing / Incision Call your doctor if your incision/area has: Continuous Slow Oozing, Sudden Increased Bleeding, Increased Pain/ Swelling, Increased Redness, Foul Smelling Discharge and Swelling at the incision site Call your doctor if you observe: Fever of 101 or Higher Cleanse incision/area with: Soap Water Additional Dressing/Incision Instructions:: Apply topical anesthetic (Dibucaine) 2-3 times daily as needed for pain to the perianal area Follow Up Care Please Follow Up With: Riley Swann MD Test Results: Test results from this visit will be discussed in further detail at your follow-up appointment, if applicable. Discharge Plan Admission Primary Reason for Your Visit: Anal fissure Attending Provider: Riley Swann Primary Care Provider: Silvana Ward NP Instructions Print Language: Tajik Discharge Orders/Prescriptions Prescriptions: New oxycodone 5 mg tablet 5 mg PO Q8H PRN (Reason: pain) 4 Days Qty: 16 0RF Continued (DME) Diltiazem 2%/Lidocaine 5% ointment (compound) Ointment See Rx Instructions .Route Qty: 1 0RF Rx Instructions: As directed Mounjaro 2.5 mg/0.5 mL pen injector 2.5 mg subcut STERN Patient Comments: [NO ORIGINAL SIG] sertraline 100 MG tablet 100 mg PO QHS lisinopril 10 MG tablet 10 mg PO QHS cholecalciferol (vitamin D3) [Vitamin D3] 125 mcg (5,000 unit) tablet 125 mcg PO DAILY magnesium 250 mg tablet 250 mg PO DAILY metformin 500 mg tablet extended release 24 hr 500 mg PO BID vitamin E (dl, acetate) 180 mg (400 unit) capsule 180 mg PO BID Qty: 60 3RF (DME) Hydrocortisone 2.5%/lidocaine 5% suppository (cmpd) Suppository See Rx Instructions .Route Qty: 42 0RF Rx Instructions: apply to rectum BID Referrals / Follow Up: Silvana Ward NP, INSULATION INSPECTOR-C [Primary Care Provider, Medical] Disposition Disposition (needs filled in before D/C Order can be placed): Home, Self Care 05/29/25 1516 Riley Swann MD CC: INSULATION INSPECTOR-C Silvana Ward Signed Normal [facility] Discharge Instruction [facility] Medical Records Department [address] [place] [address] Instructions for Home/Discharge Instructions 05/29/25 1510 MR#: [id number] Acct: [id number] Name: ELIZABETH BABB Rep #: [id number] : 1975 50 From: Riley Swann MD PCP: KENISHA Pham Status:REG [facility] Discharge Instructions Diet Discharge Diet: Light diet - advance as tolerated Activity Discharge Activity: Return to Normal Activity May shower in (days): 1 Ice area for (Minutes): 30 Lifting Restrictions: None Dressing / Incision Call your doctor if your incision/area has: Continuous Slow Oozing, Sudden Increased Bleeding, Increased Pain/ Swelling, Increased Redness, Foul Smelling Discharge and Swelling at the incision site Call your doctor if you observe: Fever of 101 or Higher Change Dressing in: 1 day Cleanse incision/area with: Soap Water Additional Dressing/Incision Instructions:: Apply topical anesthetic (Dibucaine) 2-3 times daily as needed for pain to the perianal area Follow Up Care Please Follow Up With: Riley Swann MD When: 2 weeks. Please call office to schedule appointment Test Results: Test results from this visit will be discussed in further detail at your follow-up appointment, if applicable. Discharge Plan Admission Primary Reason for Your Visit: Anal fissure Attending Provider: Riley Swann Primary Care Provider: Silvana Ward NP Instructions Print Language: Tajik Discharge Orders/Prescriptions Prescriptions: New oxycodone 5 mg tablet 5 mg PO Q8H PRN (Reason: pain) 4 Days Qty: 16 0RF Continued (DME) Diltiazem 2%/Lidocaine 5% ointment (compound) Ointment See Rx Instructions .Route Qty: 1 0RF Rx Instructions: As directed Mounjaro 2.5 mg/0.5 mL pen injector 2.5 mg subcut STERN Patient Comments: [NO ORIGINAL SIG] sertraline 100 MG tablet 100 mg PO QHS lisinopril 10 MG tablet 10 mg PO QHS cholecalciferol (vitamin D3) [Vitamin D3] 125 mcg (5,000 unit) tablet 125 mcg PO DAILY magnesium 250 mg tablet 250 mg PO DAILY metformin 500 mg tablet extended release 24 hr 500 mg PO BID vitamin E (dl, acetate) 180 mg (400 unit) capsule 180 mg PO BID Qty: 60 3RF (DME) Hydrocortisone 2.5%/lidocaine 5% suppository (cmpd) Suppository See Rx Instructions .Route Qty: 42 0RF Rx Instructions: apply to rectum BID Referrals / Follow Up: Silvana Ward NP, INSULATION INSPECTOR-C [Primary Care Provider, Medical] Disposition Disposition (needs filled in before D/C Order can be placed): Home, Self Care 05/29/25 1516 Riley Swann MD CC: INSULATION INSPECTOR-C Silvana Ward Signed Normal [facility] deOrdered By: Riley Swann on 05-29-2025 Glucose [Mass/Vol] 108 mg/dL High 74-106 [facility] Comment on above: MANAGEMENT OF PATIEN T CARE PER NURSING PROTOCOL MR/POSTOP.ANEon 05-29-2025 MR[facility] Medical Records Department [address] [place] [address] Anesthesia Postop Eval I 05/29/25 1609 MR#: [id number] Acct: [id number] Name: ELIZABETH BABB Rep #: [id number] : 1975 50 From: Tasia Arriaza CRNA PCP: KENISHA Pham Status:REG SDC Y Race: C Location: [place] [address] Anesthesia: Postop Eval I Current Vital Signs Temperature: 98 F Pulse Rate: 84 Blood Pressure: 147/76 Respiratory Rate: 16 Pulse Ox: 97 Oxygen Delivery Method: Room Air Assessment Airway patent: Yes Spontaneous unlabored respirations: Yes Mental status: Awake and Calm nausea: No Vomiting: No Anesthesia Complication: No Fluid Hydration Crystalloid volume administer (ml): 700 Total IV fluid infused: 700 Progress Note Anesthesia document: Postop Eval 1 completed: Yes 05/29/25 1610 Date Tasia Sofiya TOURING PRODUCTION MANAGER Cosigner Signature: Date CC: Signed Normal [facility] MR/[id number] 05-29-2025 MR/POSTOPAN2 [facility] Medical Records Department [address] [place] [address] Anesthesia Postop Eval II 05/29/253 MR#: [id number] Acct: [id number] Name: ELIZABETH BABB Rep #: [id number] : 1975 50 From: Max Hall MD PCP: KENISHA Pham Status:[facility] Y Race: C Location: [facility] Anesthesia Postop Eval I Sum Postop Eval Completion status Anesthesia document: Postop Eval 1 completed: Yes Anesthesia Postop Eval I Summary Anesthesia Postop Eval I Summary: Anesthesia Postop Eval I: Assessment Summary Airway patent Yes 05/29/25 16:10 TOURING PRODUCTION MANAGER.RENEEOBDaquan Spontaneous unlabored Yes 05/29/25 16:10 TOURING PRODUCTION MANAGER.RENEEOBDqauan respirations Mental status Awake,Calm 05/29/25 16:10 TOURING PRODUCTION MANAGER.SKOBY nausea No 05/29/25 16:10 TOURING PRODUCTION MANAGER.[email or web address] Vomiting No 05/29/25 16:10 TOURING PRODUCTION MANAGER.SKOBY Anesthesia Postop Eval I: Fluid Summary Crystalloid volume administer 700 05/29/25 16:10 TOURING PRODUCTION MANAGER.SKOBY (ml) Colloids volume administered ( ml) Blood Product volume administered (ml) Total IV fluid infused 700 05/29/25 16:10 TOURING PRODUCTION MANAGER.SKOBY Anesthesia Postop Eval I: Summary Notes Anesthesia Complication No 05/29/25 16:10 TOURING PRODUCTION MANAGERDESIRE Anesthesia Complication Comment: Post-operative progress note Anesthesia: Postop Eval II Evaluation Mental status: Awake and Calm Pain Level: 2 nausea: No Vomiting: No Complications Anesthesia Complication: No 05/29/253 Date Max Hall MD Cosigner Signature: Date CC: Signed Normal [facility] Operative Reporton 5 Operative Report [facility] Medical Records Department [address] [place] [address] Operative Report 05/29/25 1516 MR#: [id number] Acct: [id number] Name: ELIZABETH BABB Rep #: [id number] : 1975 50 From: Riley Swann MD PCP: KENISHA Pham Status:[facility] Location: [address] Select Codes Digestive Digestive CPT Codes: 52937 Surg dx exam anorectal and 60089 Treatment of anal fissure Endocrine,Ocular,Ner v, Auditory Endocrine,Ocular,Ner v, Auditory CPT Codes: Other Procedure See Report (22626 bilateral pudendal nerve block) Operative Report (Standard) Operative Information Date of Procedure: 05/29/25 Pre-Operative Diagnosis: Chronic anal fissure Post-Operative Diagnosis: Same Surgery/Procedure Performed: 1. Rectal exam under anesthesia 2. Lateral internal sphincterotomy 3. 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: No Type of Anesthesia: General and Local RN Documented Start/Stop Times: Operation Date: 05/29/25 13:30 Case Time Into Pre-Op 05/29/25 12:02 Out of Pre-Op 05/29/25 14:10 Anesthesia Start 05/29/25 14:12 Into Room 05/29/25 14:12 Procedure Start 05/29/25 14:38 Procedure End 05/29/25 14:53 Anesthesia End 05/29/25 14:58 Out of Room 05/29/25 14:58 Procedure Start Time: 14:38 Procedure Stop Time: 14:53 Select all DRAINS/GRAFTS/IMPLAN TS that apply: None Estimated Blood Loss: Minimal Specimen collected: No Description of surgery: The patient is a 50-year-old female who was originally seen by me earlier this year for an acute anal fissure. This initially healed and responded to stool softening agents and nifedipine ointment. A few months ago, the patient underwent knee surgery and I suspect she had some issues with constipation and noted a significant exacerbation in her symptoms. I recently saw her in the office and confirmed recurrence of her fissure. I recommended a lateral internal sphincterotomy. We discussed the details of the planned procedure including risks benefits and alternatives. She wished to proceed. She was brought to the operating room today following informed consent. She was initially intubated on the transport cart and then she was rolled into a prone position. Appropriate padding was utilized. The bed was flexed at the waist. The perianal area was prepped and draped in the usual sterile manner. A rectal exam was performed. No masses were noted. There was clearly a very large chronic appearing posterior anal fissure. This measured about a centimeter in length and width. The sphincterotomy was then performed. This was performed by inserting an anal speculum and on the patient's left side at about the 9 o'clock position, a small amount of local anesthetic was injected just below the anoderm. A #15 blade was then used to make a small incision overlying the sphincter muscle complex. The internal sphincter muscle was dissected out and isolated. Bovie electrocautery was then used to incise the internal sphincter muscle by no more than 50%. This clinically created relaxation to the anal tone. Hemostasis was very good. The wound was then closed with running 2-0 chromic. Attention was then turned to the fissure itself. The base of the fissure was cauterized to ensure hemostasis and also to stimulate ingrowth of granulation tissue. Due to the large size of the fissure, the anoderm was closed using 2-0 chromic as well in order to help heal the wound quicker. Additional local anesthetic was then injected in a bilateral pudendal block manner. Dibucaine was placed over a Gelfoam plug and was then inserted into the rectum. She was then awakened from anesthesia and extubated. She was taken to recovery in good condition. Surgical Findings: Large posterior chronic anal fissure Complications Complications: No Admit VTE Documentation VTE Present on Admission: No VTE Mechan Device Prophylaxis: SCD's VTE Pharm Prophylaxis ordered?: No Reason prophylaxis not ordered: Treatment Not Indicated 05/29/25 1527 Cosigner Signature (if applicable): CC: KENISHA Ward; Dr. Riley Swann MD Signed [facility] MR/PAT.LIBBYon 05-28-2025 MR/PAT.[facility] Medical Records Department [address] [place] [address] PAT - Anesthesia 05/28/25 1005 MR#: [id number] Acct: [id number] Name: ELIZABETH BABB Rep #: [id number] : 1975 50 From: Billy Chatterjee MD PCP: KENISHA Pham Status:PRE [facility] Y Race: C Location: [facility] Pre-Assessment Diagnosis/Proposed Procedure Planned Operative Procedure(s): LATERAL INTERNAL SPHINCTEROTOMY 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 - transportation engineer: 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 - transportation engineer Hx Hospitalization No 05/28/25 08:28 Any Problems With Anesthesia Yes: N,V. NO PROBLEM WITH 05/28/25 08:28 2024 Cholinesterase deficiency No 05/28/25 08:28 You/Your Family Experience No 05/28/25 08:28 fever (hyperthermia) with Relationship Recent Exposure to Contagious No 04/05/25 09:20 Disease Does patient have nerve No 05/28/25 08:28 stimulator Patient instructed to have device shut off --Does patient have Pacemaker or ICD? When Was Last Pacemaker Check QUESTION #4 FULL TEXT: You/Your Family Experience fever (hyperthermia) with Anesthesia Last Oral Intake Last Oral intake: Last Oral Intake NPO since Meds taken in AM with sips of water? Meds patient instructed to take am of surgery PONV PONV - transportation engineer: PONV - transportation engineer Female Yes 05/28/25 08:28 HX of Motion Sickness No 05/28/25 08:28 HX of N/V After Surgery Yes 05/28/25 08:28 Non-Smoker Yes 05/28/25 08:28 Duration of Surgery greater Yes 05/28/25 08:28 than 60 minutes Number of Risk Factors 4 05/28/25 08:28 PONV Score Severe Risk 05/28/25 08:28 Height Weight Height Weight: Anesthesia: Height Weight Height 5 ft 6 in 05/25/25 14:03 Respiratory Assessment Respiratory Assessment - transportation engineer: Respiratory Tract Infection Hx - transportation engineer Hx Respiratory Tract Infection No 05/28/25 08:28 STOP Sleep Apnea STOP Sleep Apnea - transportation engineer: STOP Sleep Apnea - transportation engineer Hx Hypertension Yes: CONTROLLED WITH MED 05/28/25 08:28 Hx Sleep Apnea No 05/28/25 08:28 CPAP No 04/05/25 11:26 BIPAP Do you snore loudly (louder No 05/28/25 08:28 than talking or can be heard Do you often feel tired/ No 05/28/25 08:28 fatigued/ sleepy during daytime? Has anyone observed you stop No 05/28/25 08:28 breathing during sleep? STOP Results Negative 05/28/25 08:28 QUESTION #5 FULL TEXT : Do you snore loudly (louder than talking or can be heard through closed doors)? Tobacco Use History Tobacco Use History - transportation engineer: Tobacco Use History - transportation engineer Tobacco Use Smoking Status Never smoker 05/28/25 08:28 Hx Tobacco Use No 05/28/25 08:28 Years Smoking Packs Smoked per Day Smoking Cessation Date was within the last 15 years Hx Smoking Cessation Date Hx Smoking Cessation Counseling Hematologic Medial History Hematologic Hx - transportation engineer: Hematologic Medical Hx - body cleaner Hx of Blood Transfusion No 05/28/25 08:28 Hx of Transfusion in last 3 No 05/28/25 08:28 Months Date of Last Transfusion (if within last 3 months) Ever experience any problems No 05/28/25 08:28 with transfusion(s)? Specify any problems Hx of Preganancy in last 3 No 05/28/25 08:28 Months Nurse Filling Out Transfusion DSCHRIBER 05/28/25 08:28 Questions: Date: 05/28/25 05/28/25 08:28 Time: 08:05/28/25 08:28 Patient unable to answer at this time (ie. 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 Hx Now No 05/28/25 08:28 Gestational Age (in weeks): EDC: Hx Hx Para Hx Section SAB No 05/28/25 08:28 [facility] Medical History Normal Holter exam Anal fissure Effusion, left knee Diabetes Restless legs Shortness of breath on exertion Leg cramps Cardiology follow-up encounter History of echocardiogram History of stress test Nonrheumatic mitral valve disorder Fatty liver Wears glasses Depression Anxiety Back pain Non-smoker History of edema Hypertension Labral tear of right hip joint Segmental and somatic dysfunction of pelvic region Segmental and somatic dysfunction of lumbar region Segmental and somatic dysfunction of thoracic region Segmental and somatic dysfunction of cervical region Home Medications ???Medication ???Instructions ???Recorded ???Last Taken ???Type sertraline 100 mg tablet 100 mg PO QHS mental health 03/20/21 History lisinopril 10 mg tablet 10 mg PO QHS blood pressure (more content not included)... Normal [facility] Surgery Visit Reporton 05-25 Surgery Visit Report [facility] [address] [place] [address] OFFICE VISIT Date of Service: 05/25/25 MR#: [id number] Acct: [id number] Name: ELIZABETH BABB Rep #: [id number] : 1975 Provider: Dr. Riley alexandre MD Age/Sex: 50/F Location: [facility] Status: Signed with Addenda ADDENDUM by ROSANGELA Lopez on 05/25/25 at 1525 Intake Chief Complaint: anal fissure Allergies latex Allergy (Verified 05/25/25 14:04) Swelling, itching Penicillins (PCN) Allergy (Verified 05/25/25 14:04) other Sulfa (Sulfonamide Antibiotics) Allergy (Verified 05/25/25 14:04) Hives, welts Medications ???Medication ???Instructions ???Recorded ???Confirmed ???Type sertraline 100 mg tablet 100 mg PO QHS mental health 05/25/25 History lisinopril 10 mg tablet 10 mg PO QHS blood pressure 05/25/25 History metformin 500 mg tablet,extended 500 mg PO DAILY 11/29/23 05/25/25 History release 24 hr vitamin E (dl, acetate) 180 mg 180 mg PO BID #60 caps 06/06/24 Rx (400 unit) capsule Diltiazem 2% / Lidocaine 5% #1 ea 11/09/24 05/25/25 Rx ointment (compound) (Diltiazem 2%/Lidocaine 5% ointment (compound)) Hydrocortisone 2.5%/lidocaine 5% #42 ea 11/10/24 05/25/25 Rx suppository (cmpd) cholecalciferol (vitamin D3) 125 125 mcg PO DAILY 03/07/25 05/25/25 History mcg (5,000 unit) tablet (Vitamin D3) magnesium 250 mg tablet 250 mg PO DAILY 03/07/25 05/25/25 History tirzepatide 2.5 mg/0.5 mL mg subcut 05/25/25 05/25/25 Histor y subcutaneous pen injector (Mounjaro) Assessment and Plan Assessment and Plan (1) Anal fissure: Status: Acute Plan Details Goals Barriers: Goals Decrease spasm Improve ROM Decrease pain Barriers Repetitive bending/lifting 05/28/25 2835 Date Riley Swann MD cc: * Signed Intake Vital Signs 04/05/25 09:20 05/25/25 14:03 Height 5 ft 6 in 5 ft 6 in Weight: 247 lb BMI 39.9 BP 120/84 H Blood Pressure Location Lt brachial Position Sitting Respiration 18 Pulse 72 Pulse Source Monitor Temp 97.9 F Temp Source Temporal Pulse Oximetry (%) 99 Oxygen Delivery Method room air Intake Visit Reasons: ANAL FISSURE Chief Complaint: anal fissure Is patient in pain?: Yes Allergies latex Allergy (Verified 05/25/25 14:04) Swelling, itching Penicillins (PCN) Allergy (Verified 05/25/25 14:04) other Sulfa (Sulfonamide Antibiotics) Allergy (Verified 05/25/25 14:04) Hives, welts Medications ???Medication ???Instructions ???Recorded ???Confirmed ???Type sertraline 100 mg tablet 100 mg PO QHS mental health 05/25/25 History lisinopril 10 mg tablet 10 mg PO QHS blood pressure 05/25/25 History metformin 500 mg tablet,extended 500 mg PO DAILY 11/29/23 05/25/25 History release 24 hr vitamin E (dl, acetate) 180 mg 180 mg PO BID #60 caps 06/06/24 Rx (400 unit) capsule Diltiazem 2% / Lidocaine 5% #1 ea 11/09/24 05/25/25 Rx ointment (compound) (Diltiazem 2%/Lidocaine 5% ointment (compound)) Hydrocortisone 2.5%/lidocaine 5% #42 ea 11/10/24 05/25/25 Rx suppository (cmpd) cholecalciferol (vitamin D3) 125 125 mcg PO DAILY 03/07/25 05/25/25 History mcg (5,000 unit) tablet (Vitamin D3) magnesium 250 mg tablet 250 mg PO DAILY 03/07/25 05/25/25 History PFSH Medical History Normal Holter exam Anal fissure Effusion, left knee Diabetes Fatty liver Restless legs Shortness of breath on exertion Leg cramps Cardiology follow-up encounter History of echocardiogram History of stress test Nonrheumatic mitral valve disorder Fatty liver Essential hypertension Encounter for screening for COVID-19 Acute appendicitis Right lower quadrant pain Wears glasses Depression Anxiety Back pain Non-smoker History of edema Hypertension Labral tear of right hip joint Right hip pain Segmental and somatic dysfunction of pelvic region Segmental and somatic dysfunction of lumbar region Segmental and somatic dysfunction of thoracic region Segmental and somatic dysfunction of cervical region COVID-19 History of colonic polyps Back pain HTN (hypertension) Hemorrhoid Laceration of right thumb without foreign body without damage to nail Nephrolithiasis Urinary tract infection Surgical History Hx of cystoscopy History of adenoidectomy History of laparoscopic appendectomy ( 09/03/21) History of History of lithotripsy History of tonsillectomy History of colonoscopy ( 2016) History of hysterectomy ( 2011) (more content not included)... Normal [facility] Re-Evaluation - PT (1)on Re-Evaluation - PT (1) [facility] Physical Therapy [facility] [address] [place] [address] / REEVALUATION / MEDICARE RECERTIFICATION PHYSICAL THERAPY MR#: [id number] Acct: [id number] Name: ELIZABETH BABB Rep #: [id number] : 1975 50 From: Eddie Garzon DPT Referring Dr.: CELINE Dominguez Status:REG RCR Insurance: [employer]/[facility] SELF PAY INSURANCE Re-Evaluation Intro: CELINE Dominguez, It has been my pleasure to treat ELIZABETH BABB over the last 8 visits for medial meniscal tear, MCL sprain, and L knee OA. DOS: 04/05/25meniscal repair. Please see the progress note below for an update on the physical therapy plan of care! Subjective Subjective: Pt. reports overall doing well. Pt. arrives with TROM brace locked in extension and NWBing. HEP compliant without issues. Objective Objective/Function: ROM: 0-0-110deg. non forceful. MMT: LLE: PT. able to complete SLR x20 without extensor lag. hip abduction 34.4#, ext 44.3#. Pt. ahs some tingling with palpation of medial joint line. Pt. is overall doing well. Pt. reports being pleased. She is to see physician later today. Plan Plan Plan: Progress per physicians instruction pending results of follow up today. Balance/Gait/Functio nal tests Balance/Special Test Scores Lower Extremity Functional Score: 20 Goals Goals Goal 1:: LTG: Pt. to be I with HEP. Goal Time Frame: 4-6 Weeks Goal Progress: Progressing Goal 2:: STG: Pt. to sleep throughout the night without increase in symptoms. Goal Time Frame: 2 Weeks Goal Progress: Goal Met Goal 3:: STG: Pt. to have increased L knee ROM to 0-0-90deg. Goal Time Frame: 2-4 Weeks Goal Progress: Goal Met Goal 4:: LTG: Pt. to have full L knee ROM without increase in symptoms. Goal Time Frame: 2-4 Weeks Goal Progress: Progressing Goal 5:: STG: Pt. to complete SLR without extensor lag x20 Goal Time Frame: 2 Weeks Goal Progress: Goal Met Goal 6:: LTG: pt. to have full strength of LLE without increase in symtpoms. Goal Time Frame: 4-6 Weeks Anticipated Interventions Anticipated Interventions Patient/Client Instruction: Educate patient on: Condition, Plan of Care, Risk Factors and Benefits of Fitness Program For the Purpose of:: To improve health and function, To foster healthy habits, To improve decision making, To facilitate caregiver knowledge, To improve self management, To prevent re-injury and To improve ability to perform tasks related to life management Therapeutic Exercise to Include: Strength training, Power training, Endurance training, Coordination, Postural training, Flexibilty training and Gait and locomotor training For the Purpose of:: To decrease pain, To decrease swelling/inflammatio n, To increase ROM, To improve nutrient delivery to tissue, To increase oxygenation perfusion, To improve muscle performance and motor function, To improve ability to perform ADL's and To increase tolerance to activity/condition/p osition Cryotherapy (ice pack, ice massage): Yes Vasopneumatic device: Yes For the Purpose of:: To decrease pain, To decrease swelling/inflammatio n and To increase ROM Re-Evaluation Ending Re-evaluation ending: Please do not hesitate to contact me at [phone] by phone or if you have questions or concerns regarding this new plan of care! Sincerely, Eddie Garzon DPT 05/15/25 1309 CC: KENISHA Ward; CELINE Dominguez CLS Signed For Medicare only, by signing this I certify the plan of care. Physicians Signature Date Normal [facility] Inital Evaluation (1) - PTon 04-24-2025 Inital Evaluation (1) - PT [facility] Physical Therapy [facility] [address] [place] [address] / REHABILITATION SERVICES INITIAL EVALUATION MR#: [id number] Acct: [id number] Name: ELIZABETH BABB Rep #: [id number] : 1975 50 From: Eddie Garzon DPT Referring Dr.: CELINE Dominguez Status: REG RCR Insurance: [employer] SELF PAY INSURANCE Patient's Visit Information Visit Information Visit Information: ELIZABETH BABB is a 50 year old F referred to Physical Therapy by CELINE Dominguez with a diagnosis of medial meniscal tear, MCL sprain, and L knee OA. DOS: 04/05/25meniscal repair. Date of Evaluation: 04/24/25 Physical Therapist: Eddie Garzon DPT Visit Plan Frequency: 2-3x /Week Duration: 6 Weeks Plan: 1) L knee ROM 0-0-90deg 2) quad iso progressing to hip strengthening. PT. is currently NWBing on LLE. ice and vase for edema control. Subjective Subjective: Pt. is here today for her initial evaluation with diagnosis of medial meniscal tear, MCL sprain, and L knee OA. DOS: 04/05/25. Pt. arrives using B crutches. Pt. is currently NWBing on her L knee. She is able to open up her TROM brace to 90deg while seated. Pt. works at [employer]. Pt. reports overall doing well, but has marked edema. Pt. has been getting around well with her crutches without limitations. She denies calf pain, no fever, no chest pains. Pt. 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 Pain L knee: Pain Intensity (Out of 10): 3 Pain Intensity Range: 1 and 6 Objective Objective: POSTURE: Pt. is NWbing on LLE currently. Pt. does a great job maintaining. PALPATION: Pt. just had stitches removed. Pt. has some redness at incisions, but no signs of infection. Negative homans NEURO: Pt. has normal sensation in BLEs. ROM: L knee: PROM 0-0-66deg. Tightness in HS noted. MMT: Pt. has decent quad set and is able to complete SLR without brace with minimal lag. GAIT: Pt. ambulates well with B crutches, NWBing. Balance/Special Test Scores Lower Extremity Functional Score: 20 Goals Goal 1:: LTG: Pt. to be I with HEP. Goal Time Frame: 4-6 Weeks Goal 2:: STG: Pt. to sleep throughout the night without increase in symptoms. Goal Time Frame: 2 Weeks Goal 3:: STG: Pt. to have increased L knee ROM to 0-0-90deg. Goal Time Frame: 2-4 Weeks Goal 4:: LTG: Pt. to have full L knee ROM without increase in symptoms. Goal Time Frame: 2-4 Weeks Goal 5:: STG: Pt. to complete SLR without extensor lag x20 Goal Time Frame: 2 Weeks Goal 6:: LTG: pt. to have full strength of LLE without increase in symtpoms. Goal Time Frame: 4-6 Weeks Rehabilitation Potential Physical Therapy Diagnosis: Pt. has signs and symptoms consistent with medial meniscal tear, MCL sprain, and L knee OA. DOS: 04/05/25meniscal repair. Pt. has marked hypomobility, weakness, and difficulty walking. She would benefit from PT to address her limitations progressing back to all previous levels of activity. Rehabilitation Potential: Excellent Anticipated Interventions Patient/Client Instruction: Educate patient on: Condition, Plan of Care, Risk Factors and Benefits of Fitness Program For the Purpose of:: To improve health and function, To foster healthy habits, To improve decision making, To facilitate caregiver knowledge, To improve self management, To prevent re-injury and To improve ability to perform tasks related to life management Therapeutic Exercise to Include: Strength training, Power training, Endurance training, Coordination, Postural training, Flexibilty training and Gait and locomotor training For the Purpose of:: To decrease pain, To decrease swelling/inflammatio n, To increase ROM, To improve nutrient delivery to tissue, To increase oxygenation perfusion, To improve muscle performance and motor function, To improve ability to perform ADL's and To increase tolerance to activity/condition/p osition Cryotherapy (ice pack, ice massage): Yes Vasopneumatic device: Yes For the Purpose of:: To decrease pain, To decrease swelling/inflammatio n and To increase ROM Text: Thank you for the opportunity to evaluate your patient. For Medicare and Medicare HMO plans, please review the plan of care and approve it. It will need to be FAXED BACK to us at [phone] for Medicare purposes. For Medicare only, by signing this I certify the plan of care. Please let me know if there are questions or concerns regarding this plan of care. Physician Signature: D ate: 04/24/25 0935 CC: KENISHA Ward; CELINE Dominguez CLS Signed Normal [facility]) ELIZABETH [facility] ([id number]) 1975 F [facility] Date Time Provider Department 04/13/25 SILVANA WARD During your visit today, we recorded the following information about you: Ava Rizvi LPN 04/13/2025 11:54 AM Signed unable to complete PA for mounmichro electronically. Covermymeds says to complete with rx benefits. Form completed. Ava Rizvi LPN 04/13/2025 2:47 PM Signed Another form rec'd this was completed and to pcp to sign.(ITS THE SAME QUESTIONS JUST DIFFERENT FORM). Ava Rizvi LPN 04/16/2025 2:12 PM Signed Fax rec'd from insurance noting no PA was needed. Allergies As of Date: 04/13/2025 Noted Allergy Reaction LATEX 05/24/2013 2 - Rash PENICILLINS 05/24/2013 4 - Hives SULFA (SULFONAMIDE ANTIBIOTICS) 05/24/2013 4 - Hives Date Reviewed: 03/13/2025 Reviewed by: Leander Swanson LPN - Fully Assessed Reason for Visit: Insurance Authorization [[id number]] Prescriptions as of 04/16/2025 - tirzepatide (MOUNJARO) [...] [facility] Tear of right acetabular labrum [S73.191A] 08/09/2021 Mitral valve annular calcification [I34.81] 04/24/2022 Type 2 diabetes mellitus without complication, *03/13/2025 Encounter Status:Closed by AVA RIZVI on 04/16/25 Normal [facility] Bedside Glucoseon 04-05-2025 FINGERSTICK GLU 136 mg/dL High 74-106 [facility] Comment on above: Result Comment: XOCHILT TERAN OF PATIENT CARE PER NURSING PROTOCOL Performed By: #### L 501.080 ####[facility] [id number] [place], [address] [facility] deOrdered By: Jacinto Simth on 04-05-2025 Glucose [Mass/Vol] 136 mg/dL High 74-106 [facility] Comment on above: MANAGEMENT OF PATIEN T CARE PER NURSING PROTOCOL MR/POSTOP.ANEon 04-05-2025 MR[facility]OP.[facility] Medical Records Department [address] [place] [address] Anesthesia Postop Eval I 04/05/25 1150 MR#: [id number] Acct: [id number] Name: ELIZABETH BABB Rep #: [id number] : 1975 50 From: To Fagan CRNA PCP: KENISHA Pham Status:REG SDC Y Race: C Location: [place] [address] Anesthesia: Postop Eval I Current Vital Signs Temperature: 97.6 F Pulse Rate: 82 Blood Pressure: 131/84 Respiratory Rate: 16 Pulse Ox: 96 Oxygen Delivery Method: Room Air Assessment Airway patent: Yes Spontaneous unlabored respirations: Yes Mental status: Awake and Calm nausea: No Vomiting: No Anesthesia Complication: No Fluid Hydration Crystalloid volume administer (ml): 800 Total IV fluid infused: 800 Progress Note Anesthesia document: Postop Eval 1 completed: Yes 04/05/25 1151 Date To Fagan CRNA Cosigner Signature: Date CC: Signed Normal [facility] Operative Reporton 5 Operative Report [facility] Medical Records Department [address] [place] [address] Operative Report 04/05/25 1824 MR#: [id number] Acct: [id number] Name: ELIZABETH BABB Rep #: [id number] : 1975 50 From: Jacinto Smith DO PCP: KENISHA Pham Status:DEP [facility] Location: [facility] Operative Report (Standard) Operative Information Date of Procedure: 04/05/25 Pre-Operative Diagnosis: Left knee medial meniscal root tear Post-Operative Diagnosis: Left knee medial meniscal root tear Surgery/Procedure Performed: Left knee medial meniscal arthroscopic repair tax accounting manager: Yes Chemical Dependency Attendant: Harriet Larry Tasks completed by shop assistant: Opening closing and Implanting device Type of Anesthesia: General/Regional RN Documented Start/Stop Times: Operation Date: 04/05/25 10:15 Case Time Into Pre-Op 04/05/25 08:59 Anesthesia Start 04/05/25 10:15 Into Room 04/05/25 10:15 Procedure Start 04/05/25 10:43 Procedure End 04/05/25 11:22 Anesthesia End 04/05/25 11:25 Out of Room 04/05/25 11:25 Into Recovery 04/05/25 11:26 Into Phase II Recovery 04/05/25 13:18 Out of Recovery 04/05/25 13:18 Out of Phase II 04/05/25 14:33 Procedure Start Time: 10:43 Procedure Stop Time: 11:22 Select all DRAINS/GRAFTS/IMPLAN TS that apply: Implanted device Implanted device details: 4.75 mm PEEK swivel lock suture anchor Estimated Blood Loss: 5 cc Specimen collected: No Description of surgery: Patient identified preoperative holding area by name, correct number, and date of . The operative extremity was marked. All questions were answered to the patient satisfaction. Peripheral block was administered by anesthesia staff prior to the procedure. At time of her procedure, patient brought the operative suite positioned supine on standard operating table. All bony prominences well-padded. General anesthesia was administered and LMA was placed. A well-padded pneumatic tourniquet was applied to the operative upper thigh. An arthroscopic leg ray was placed around the left lower extremity. A well-leg ray was placed beneath the patient's right thigh. The foot of the bed was dropped 90 degrees. We prepped and draped the right lower extremity in normal, sterile orthopedic fashion. We performed timeout with all parties in attendance in agreement with the side, site, operation be performed. 2 g Ancef was administered by anesthesia staff prior to tourniquet inflation. I then exsanguinated the left lower extremity with Esmarch bandage. Tourniquet was inflated to 250 mmHg for 28 minutes. Esmarch was removed. Standard anterolateral portal was then established 90 degrees of flexion. Blunt tipped trocar was used to enter the knee joint. Knee was filled with normal saline with epinephrine. Arthroscope was then introduced. Patellofemoral joint demonstrated mild grade 1???2 chondromalacia. Medial lateral gutters were unremarkable. Medial compartment was entered with valgus stress. Anterior medial portal was established in standard fashion. Probing the medial meniscus demonstrated full-thickness meniscal root tear. Focal grade III chondromalacia was noted approximately 1 x 1 cm along the medial aspect of the medial femoral condyle. Cartilage was stable. Tibial cartilage demonstrated grade I chondromalacia. Intercondylar notch was examined and ACL was pristine. Lateral compartment was entered with a zmhyve-kf-[id number] stress. The lateral compartment was probed and the meniscus was stable without significant tearing noted. I then returned to the medial compartment. I elected to proceed with meniscal root repair. I debrided the footprint of the meniscus and decorticated with a rasp. 2 fiber link sutures were passed through the posterior horn 3-4 mm from the tear margin with a [employer] meniscal suture passer. Sutures were then retrieved out an accessory far medial portal. I then introduced the drill guide for the tibial tunnel. This was placed at the [place] footprint. 2 cm incision was made along the anterior medial tibial crest. I then drilled to our planned trajectory with a flip cutter. The flip cutter was deployed and a 1 cm socket was established in the subchondral bone. A nitinol wire was then passed through the tibial tunnel after the drill was removed. Sutures were shuttled through the tibial tunnel. Sutures were passed through the eyelet of a swivel lock anchor. Approximately 1 cm distal to our tunnel, I drilled and tapped for the swivel lock anchor. Suture was tensioned within the anchor and the anchor was successfully placed with excellent cortical purchase. Sutures were cut. The meniscus was probed and appeared stable. Portal sites were closed in interrupted fwlakp-mq-bzefq fashion with 3-0 nylon suture. Bulky sterile compression system was applied. Patient was safely awakened in the operative suite and extubated. A Violetta ANAND (more content not included)... Normal [facility] CNOVon 03-13-2025 [facility] ELIZABETH BABB ([id number]) 1975 F [facility] Date Time Provider Department 03/13/25 8:20 AM [facility] During your visit today, we recorded the following information about you: Pulse Respiration Blood pressure Weight 69/minute 16/minute 118/82 111.1 kg Silvana Ward, BHASKAR.SPOT CHECKER 03/13/2025 9:16 AM Signed - Increased metformin to 2 tablets by mouth daily; you may take both with breakfast or split between breakfast and dinner if you notice diarrhea. - Refill for lisinopril has been sent to [facility]; pick it up as soon as it?s ready. - Prior authorization has been submitted for Mounjaro (weekly semaglutide) to [facility]; if approved, tack picker the first four starter doses. - Do [...] Mounjaro and authorize dose escalation if appropriate. Silvana Ward, BHASKAR.SPOT CHECKER 03/13/2025 11:07 AM Signed This is a 49 year old female who presents today with: Elizabeth Babb is a 49-year-old female with a [...] - Scheduled for knee surgery with Dr. Smith on April 05 for a root tear; [...] onset 03/16/21, monoclonal Ab tx per pulmonology [facility] Non morbid obesity 07/15/2016 S/P laparoscopic appendectomy 09/03/2021 PAST SURGICAL HISTORY Procedure Laterality Date ADENOIDECTOMY PRIMARY Adenoidectomy APPENDECTOMY 09/03/2021 DELIVERY ONLY , low transverse CHOLECYSTECTOMY 2001 or 2002 COLONOSCOPY 06/23/2006 adenomatous polyp COLONOSCOPY 07/24/2009 normal COLONOSCOPY FLX DX W/COLLJ SPEC WHEN PFRMD 07/08/2012 hyperplastic COLONOSCOPY FLX DX W/COLLJ SPEC WHEN PFRMD 07/29/2016 Colonoscopy (MAC) DILATION AND CURETTAGE DXAND/THER NONOBSTETRIC Dilation AND curettage ESOPHAGOGASTRODUODEN OSCOPY TRANSORAL DIAGNOSTIC 07/29/2016 EGD (MAC) F LITHOTRIPSY [...] 0.3 mL intramuscularly as needed. No current facility-administere d medications for this visit. FAMILY HISTORY Problem Relation Age of Onset Hypertension Mother other (no breast ca) Other other (no colon ca) Other other (no cad) Other Heart Failure Ma (more content not included)... Normal [facility] Absolute lymphocyte countOrd ered By: HEALTH ASSESSMENT on 03-09-2025 Lymphocytes Auto (Unsp spec) [#/Vol] 2.23 10*3/uL 0.83-4.51 [facility] Absolute neutrophil countOrd ered By: HEALTH ASSESSMENT on 03-09-2025 Neutrophils (Bld) [#/Vol] 2.9 10*3/uL 2.0-7.7 [facility] Absolute nucleated red blood cell countOrdered By: HEALTH ASSESSMENT on 03-09-2025 Nucleated RBC (Bld) [#/Vol] 0.00 10*3/uL 0-5 [facility] Anion gap in Serum or Plasma Ordered By: HEALTH ASSESSMENT on 03-09-2025 Anion gap [Moles/Vol] 13 mmol/L 5-15 [facility] Automated blood erythrocyte countOrdered By: HEALTH ASSESSMENT on 03-09-2025 RBC (Bld) [#/Vol] 5.17 10*6/uL Normal 4.2-5.4 [facility] Comment on above: Order Comment: SEND TO DR REYES Performed By: #### L 400.0100, L100.0200, L500.2900 ####[facility] [address] [place], [address] Automated blood hematocrit ( percentage)Ordered By: HEALTH ASSESSMENT on 03-09-2025 Hematocrit (Bld) [Volume fraction] 44.1 % Normal 37-47 [facility] Comment on above: Order Comment: SEND TO DR REYES Performed By: #### L 400.0100, L100.0200, L500.2900 ####[facility] [address] [place], [address] BUN/creatinine ratioOrdered By: HEALTH ASSESSMENT on 03-09-2025 Urea nitrogen/Creatinine [Mass ratio] 22.5 mg/mg High 10-20 [facility] Basic Metabolic Profile (BMP )on 03-09-2025 BUN Normal 4-19 [facility] Comment on above: Result Comment: BMP, CBCD ON EMPH LABS. Performed By: #### L 500.2500, L501.9985, L100.0100 ####[facility] [address] [place], [address] BUN/CRE Normal 10-20 [facility] Comment on above: Result Comment: BMP, CBCD ON EMPH LABS. Performed By: #### L 500.2500, L501.9985, L100.0100 ####[facility] [address] [place], [address] Calcium Normal 7.6-11.0 [facility] Comment on above: Result Comment: BMP, CBCD ON EMPH LABS. Performed By: #### L 500.2500, L501.9985, L100.0100 ####[facility] [address] [place], [address] CL Normal 98-108 [facility] Comment on above: Result Comment: BMP, CBCD ON EMPH LABS. Performed By: #### L 500.2500, L501.9985, L100.0100 ####[facility] [address] [place], [address] CO2 Normal 21.0-32.0 [facility] Comment on above: Result Comment: BMP, CBCD ON EMPH LABS. Performed By: #### L 500.2500, L501.9985, L100.0100 ####[facility] [address] [place], [address] CREAT,SERUM Normal 0.70-1.20 [facility] Comment on above: Result Comment: BMP, CBCD ON EMPH LABS. Performed By: #### L 500.2500, L501.9985, L100.0100 ####[facility] [address] [place], [address] eGFR Normal >60 [facility] Comment on above: Result Comment: BMP, CBCD ON EMPH LABS. Performed By: #### L 500.2500, L501.9985, L100.0100 ####[facility] [address] [place], [address] GAP Normal 5-15 [facility] Comment on above: Result Comment: BMP, CBCD ON EMPH LABS. Performed By: #### L 500.2500, L501.9985, L100.0100 ####[facility] [address] [place], [address] GLU Normal 70-99 [facility] Comment on above: Result Comment: BMP, CBCD ON EMPH LABS. Performed By: #### L 500.2500, L501.9985, L100.0100 ####[facility] [address] [place], [address] Potassium Normal 3.3-5.1 [facility] Comment on above: Result Comment: BMP, CBCD ON EMPH LABS. Performed By: #### L 500.2500, L501.9985, L100.0100 ####[facility] [address] [place], [address] Basic Metabolic Profile (BMP) Normal 133-145 [facility] Comment on above: Result Comment: BMP, CBCD ON EMPH LABS. Performed By: #### L 500.2500, L501.9985, L100.0100 ####[facility] [address] [place], [address] Bilirubin Test strip Ql (U)O rdered By: HEALTH ASSESSMENT on 03-09-2025 Bilirubin Ql (U) Negative Negative [facility] Bilirubin directOrdered By: HEALTH ASSESSMENT on 03-09-2025 Bilirubin.direct [Mass/Vol] 0.18 mg/dL 0.00-0.30 [facility] Comment on above: Hemolysis present, R esults could be affected. Bilirubin, totalOrdered By: HEALTH ASSESSMENT on 03-09-2025 Bilirubin [Mass/Vol] 0.64 mg/dL 0.00-1.30 [facility] CBC W/Diff, Automatedon 02-27 Absolute Neut Normal 2.0-7.7 [facility] Comment on above: Result Comment: BMP, CBCD ON EMPH LABS. Performed By: #### L 500.2500, L501.9985, L100.0100 ####[facility] [address] [place], [address] HCT Normal 37-47 [facility] Comment on above: Result Comment: BMP, CBCD ON EMPH LABS. Performed By: #### L 500.2500, L501.9985, L100.0100 ####[facility] [address] [place], [address] HGB Normal 12.0-15.0 [facility] Comment on above: Result Comment: BMP, CBCD ON EMPH LABS. Performed By: #### L 500.2500, L501.9985, L100.0100 ####[facility] [address] [place], [address] MCH Normal 27.0-32.0 [facility] Comment on above: Result Comment: BMP, CBCD ON EMPH LABS. Performed By: #### L 500.2500, L501.9985, L100.0100 ####[facility] [address] [place], [address] MCHC Normal 32-36 [facility] Comment on above: Result Comment: BMP, CBCD ON EMPH LABS. Performed By: #### L 500.2500, L501.9985, L100.0100 ####[facility] [address] [place], [address] MCV Normal 81-99 [facility] Comment on above: Result Comment: BMP, CBCD ON EMPH LABS. Performed By: #### L 500.2500, L501.9985, L100.0100 ####[facility] [address] [place], [address] NEUT% Normal 47-70 [facility] Comment on above: Result Comment: BMP, CBCD ON EMPH LABS. Performed By: #### L 500.2500, L501.9985, L100.0100 ####[facility] [address] [place], [address] PLT Normal 150-450 [facility] Comment on above: Result Comment: BMP, CBCD ON EMPH LABS. Performed By: #### L 500.2500, L501.9985, L100.0100 ####[facility] [address] [place], [address] RBC Normal 4.2-5.4 [facility] Comment on above: Result Comment: BMP, CBCD ON EMPH LABS. Performed By: #### L 500.2500, L501.9985, L100.0100 ####[facility] [address] [place], [address] RDW CV Normal 11.6-14.6 [facility] Comment on above: Result Comment: BMP, CBCD ON EMPH LABS. Performed By: #### L 500.2500, L501.9985, L100.0100 ####[facility] [address] [place], [address] RDW SD Normal 35.1-43.9 [facility] Comment on above: Result Comment: BMP, CBCD ON EMPH LABS. Performed By: #### L 500.2500, L501.9985, L100.0100 ####[facility] [address] [place], [address] WBC Normal 4.4-11.0 [facility] Comment on above: Result Comment: BMP, CBCD ON EMPH LABS. Performed By: #### L 500.2500, L501.9985, L100.0100 ####[facility] [address] [place], [address] CBC, Employeeon 03-09-2025 Absolute Lymph 2.23 X10 3/uL Normal 0.83-4.51 [facility] Comment on above: Order Comment: SEND TO DR REYES Performed By: #### L 400.0100, L100.0200, L500.2900 ####[facility] [address] [place], [address] Absolute Neut 2.9 X10 3/uL Normal 2.0-7.7 [facility] Comment on above: Order Comment: SEND TO DR REYES Performed By: #### L 400.0100, L100.0200, L500.2900 ####[facility] [address] [place], [address] Basophils/100 WBC (Bld) 0.7 % Normal 0-1 [facility] Comment on above: Order Comment: SEND TO DR REYES Performed By: #### L 400.0100, L100.0200, L500.2900 ####[facility] [address] [place], [address] Eosinophils/100 WBC (Bld) 2.7 % Normal 0-5 [facility] Comment on above: Order Comment: SEND TO DR REYES Performed By: #### L 400.0100, L100.0200, L500.2900 ####[facility] [address] [place], [address] Lymphocytes/100 WBC (Bld) 38.1 % Normal 19-41 [facility] Comment on above: Order Comment: SEND TO DR REYES Performed By: #### L 400.0100, L100.0200, L500.2900 ####[facility] [address] [place], [address] Monocytes/100 WBC (Bld) 9.0 % Normal 0-10 [place] Comment on above: Order Comment: SEND TO DR REYES Performed By: #### L 400.0100, L100.0200, L500.2900 ####[facility] [address] [place], [address] NRBC # 0.00 10 3/uL Normal 0-5 [facility] Comment on above: Order Comment: SEND TO DR REYES Performed By: #### L 400.0100, L100.0200, L500.2900 ####[facility] [address] [place], [address] Nucleated RBC (Bld) [#/Vol] 0 10*3/uL Normal 0-5 [facility] Comment on above: Order Comment: SEND TO DR REYES Performed By: #### L 400.0100, L100.0200, L500.2900 ####[facility] [address] [place], [place], [address] RDW SD 37.6 fl Normal 35.1-43.9 [facility] Comment on above: Order Comment: SEND TO DR REYES Performed By: #### L 400.0100, L100.0200, L500.2900 ####[facility] [address] [place], [address] Calculated very low density lipoprotein (VLDL) cholesterol measurementOrdered By: HEALTH ASSESSMENT on 03-09-2025 Calculated very low density lipoprotein (VLDL) cholesterol measurement 73 mg/dL High 5-40 [facility] Carbon dioxide, total [Moles /volume] in Central venous bloodOrdered By: HEALTH ASSESSMENT on 03-09-2025 CO2 [Moles/Vol] 23.7 mmol/L 21.0-32.0 [facility] Chloride assayOrdered By: HE ALTH ASSESSMENT on 03-09-2025 Chloride [Moles/Vol] 102 mmol/L 98-108 [facility] Employee Profileon Cholesterol in LDL [Mass/Vol] 115 mg/dL Normal 0-130 [facility] Comment on above: Order Comment: SEND TO DR. SMITH.UNK Performed By: #### L 400.0100, L100.0200, L500.2900 ####[facility] [address] [place], [place], [address] Erythrocyte distribution wid th ratioOrdered By: HEALTH ASSESSMENT on 03-09-2025 Erythrocyte distribution width (RBC) [Ratio] 12.2 % Normal 11.6-14.6 [facility] Comment on above: Order Comment: SEND TO DR REYES Performed By: #### L 400.0100, L100.0200, L500.2900 ####[facility] [address] [place], [address] Erythrocyte distribution wid th standard deviationOrdered By: HEALTH ASSESSMENT on 03-09-2025 Erythrocyte distribution width (RBC) [Ratio] 37.6 fl 35.1-43.9 [facility] Glomerular filtration rate ( GFR) estimation/1.73 sq m using serum, plasma, or whole bOrdered By: HEALTH ASSESSMENT on 03-09-2025 GFR/1.73 sq M.predicted among non-blacks MDRD (S/P/Bld) [Vol rate/Area] 92 mL/min/{1.73_m2} >60 [facility] Comment on above: mL/min/1.73m2 CKD-EP I Creatinine Equation (2020) Hemoglobin A1con 03-09-2025 HbA1c (Bld) [Mass fraction] 7.6 % High <=5.6 [facility] Comment on above: Result Comment: Norm al < 5.7 % Prediabetic 5.7 - 6.4 % Diabetic >or= 6.5 % Please note range changes. Performed By: #### L 500.2500, L501.9985, L100.0100 ####[facility] [address] [place], [place], [address] Hemoglobin A1c percentageOrd ered By: Jacinto Smith on 03-09-2025 HbA1c (Bld) [Mass fraction] 7.6 % High <5.7 [facility] Comment on above: Normal < 5.7 % Predi abetic 5.7 - 6.4 % Diabetic >or= 6.5 % Please note range changes. Hemoglobin measurementOrdere d By: HEALTH ASSESSMENT on 03-09-2025 Hemoglobin (Bld) [Mass/Vol] 15.0 g/dL Normal 12.0-15.0 [facility] Comment on above: Order Comment: SEND TO DR REYES Performed By: #### L 400.0100, L100.0200, L500.2900 ####[facility] [address] [place], [place], [id number] Ketones Test strip Ql (U)Ord ered By: HEALTH ASSESSMENT on 03-09-2025 Ketones Ql (U) Negative Negative [facility] Laboratory - Chemistry and C hemistry - challengeOrdered By: HEALTH ASSESSMENT on 03-09-2025 AST [Catalytic activity/Vol] 49 U/L High <32 [facility] Comment on above: Hemolysis present, R esults could be affected. Lactate dehydrogenase (LDH) measurementOrdered By: HEALTH ASSESSMENT on 03-09-2025 LDH [Catalytic activity/Vol] 223 U/L 84-246 [facility] Comment on above: Hemolysis present, R esults could be affected. MCV (mean corpuscular volume ) determinationOrdered By: HEALTH ASSESSMENT on 03-09-2025 MCV (RBC) [Entitic vol] 85.3 fL Normal 81-99 [facility] Comment on above: Order Comment: SEND TO DR REYES Performed By: #### L 400.0100, L100.0200, L500.2900 ####[facility] [address] [place], [address] Mean corpuscular hemoglobin (MCH) determinationOrdered By: HEALTH ASSESSMENT on 03-09-2025 MCH (RBC) [Entitic mass] 29.0 pg Normal 27.0-32.0 [facility] Comment on above: Order Comment: SEND TO DR REYES Performed By: #### L 400.0100, L100.0200, L500.2900 ####[facility] [address] [place], [place], [address] Mean corpuscular hemoglobin concentration (MCHC) determinationOrdered By: HEALTH ASSESSMENT on 03-09-2025 MCHC (RBC) [Mass/Vol] 34.0 g/dL Normal 32-36 [facility] Comment on above: Order Comment: SEND TO DR REYES Performed By: #### L 400.0100, L100.0200, L500.2900 ####[facility] [address] [place], [address] Mean platelet volume determi nationOrdered By: HEALTH ASSESSMENT on 03-09-2025 Platelet mean volume (Bld) [Entitic vol] 10.1 fL Normal 6.2-12.0 [facility] Comment on above: Order Comment: SEND TO DR REYES Performed By: #### L 400.0100, L100.0200, L500.2900 ####[facility] [address] [place], [place], [address] Neutrophil percentageOrdered By: HEALTH ASSESSMENT on 03-09-2025 Neutrophils/100 WBC (Bld) 49.0 % Normal 47-70 [facility] Comment on above: Order Comment: SEND TO DR REYES Performed By: #### L 400.0100, L100.0200, L500.2900 ####[facility] [address] [place], [address] Nitrite Test strip Ql (U)Ord ered By: HEALTH ASSESSMENT on 03-09-2025 Nitrite Ql (U) Negative Negative [facility] Nucleated red blood cell per centageOrdered By: HEALTH ASSESSMENT on 03-09-2025 Nucleated RBC/100 WBC (Bld) [Ratio] 0 % 0-5 [facility] Platelet countOrdered By: HE ALTH ASSESSMENT on 03-09-2025 Platelets (Bld) [#/Vol] 243 10*3/uL Normal 150-450 [facility] Comment on above: Order Comment: SEND TO DR REYES Performed By: #### L 400.0100, L100.0200, L500.2900 ####[facility] [address] [place], [address] Potassium measurement (mass/ volume)Ordered By: HEALTH ASSESSMENT on 03-09-2025 Potassium (Unsp spec) [Mass/Vol] 4.5 mmol/L 3.3-5.1 [facility] Comment on above: Hemolysis present, R esults could be affected. Protein Test strip Ql (U)Ord ered By: HEALTH ASSESSMENT on 03-09-2025 Protein Ql (U) Negative Negative [facility] Screening total cholesterol/ high density lipoprotein (HDL) cholesterol ratioOrdered By: HEALTH ASSESSMENT on 03-09-2025 Cholesterol.total/Choles terol in HDL [Mass ratio] 5.78 {ratio} [facility] Serum creatinine measurement (mass/volume)Ordered By: HEALTH ASSESSMENT on 03-09-2025 Creatinine [Mass/Vol] 0.79 mg/dL 0.70-1.20 [facility] Serum globulin measurementOr dered By: HEALTH ASSESSMENT on 07-11-2025 Globulin (S) [Mass/Vol] 2.9 g/dL 2.2-4.2 [facility] Serum glucose measurement (m ass/volume)Ordered By: HEALTH ASSESSMENT on 03-09-2025 Glucose [Mass/Vol] 162 mg/dL High 70-99 [facility] Serum or plasma alanine soares otransferase (ALT) measurementOrdered By: HEALTH ASSESSMENT on 03-09-2025 ALT [Catalytic activity/Vol] 56 U/L High <35 [facility] Serum or plasma albumin lydia urement (mass/volume)Ordered By: HEALTH ASSESSMENT on 03-09-2025 Albumin [Mass/Vol] 4.4 g/dL 3.5-5.0 [facility] Serum or plasma albumin/glob ulin mass ratioOrdered By: HEALTH ASSESSMENT on 03-09-2025 Albumin/Globulin [Mass ratio] 1.5 {ratio} 0.9-2.4 [facility] Serum or plasma alkaline maximiliano sphatase measurementOrdered By: HEALTH ASSESSMENT on 03-09-2025 ALP [Catalytic activity/Vol] 72 U/L 35-104 [facility] Serum or plasma calcium lydia urement (mass/volume)Ordered By: HEALTH ASSESSMENT on 03-09-2025 Calcium [Mass/Vol] 10.1 mg/dL 7.6-11.0 [facility] Serum or plasma cholesterol in HDL measurement (mass/volume)Ordered By: HEALTH ASSESSMENT on 03-09-2025 Cholesterol in HDL [Mass/Vol] 39 mg/dL Low >40 [facility] Comment on above: National Cholesterol Education Program (NCEP) guidelines:<40 mg/dL: Low HDL-cholesterol (major risk factor for CHD)>= 60 mg/dL: High HDL-cholesterol (negative risk factor for CHD)HDL-cholesterol is affected by a number of factors, e.g. smoking, exercise, hormones, sex and age. Serum or plasma cholesterol in LDL measurement (mass/volume)Ordered By: HEALTH ASSESSMENT on 03-09-2025 Cholesterol in LDL [Mass/Vol] 115 mg/dL 0-130 [facility] Serum or plasma cholesterol measurement (mass/volume)Ordered By: HEALTH ASSESSMENT on 03-09-2025 Cholesterol [Mass/Vol] 227 mg/dL High <201 [facility] Comment on above: Cholesterol level, D esirable <200 mg/dLBorderline high cholesterol 200-239 mg/dLHigh cholesterol >=240 mg/dLRecommendations of the NCEP Adult Treatment Panel for the following risk-cutoff thresholds for the [place] population. Serum or plasma urea nitroge n measurement (mass/volume)Ordered By: HEALTH ASSESSMENT on 03-09-2025 Urea nitrogen [Mass/Vol] 18 mg/dL 4-19 [facility] Serum or plasma uric acid me asurement (mass/volume)Ordered By: HEALTH ASSESSMENT on 03-09-2025 Urate [Mass/Vol] 6.8 mg/dL High 2.6-6.0 [facility] Comment on above: The drugs N-Acetylcy steine and Metamizole may falsely depress this assay. Sodium levelOrdered By: [facility] ASSESSMENT on 03-09-2025 Sodium [Moles/Vol] 139 mmol/L 133-145 [facility] Total proteinOrdered By: [facility] ASSESSMENT on 03-09-2025 Protein [Mass/Vol] 7.3 g/dL 5.9-8.4 [facility] Triglycerides measurementOrd ered By: HEALTH ASSESSMENT on 03-09-2025 Triglyceride [Mass/Vol] 367 mg/dL High <199 [facility] Comment on above: The drugs N-Acetylcy steine and Metamizole may falsely depress this assay. Normal range: <150 mg/dLBorderline High: 150-199 mg/dLHigh: 200-499 mg/dLVery High: >500 mg/dL Urinalysis, Employeeon 03-09 BILIRUBIN URINE Negative Normal Negative [facility] Comment on above: Order Comment: UNKNitesh ine, Random Performed By: #### L 400.0100, L100.0200, L500.2900 ####[facility] [address] [place], [place], [id number] Clarity (U) Clear Normal Clear [facility] Comment on above: Order Comment: UNKUr ine, Random Performed By: #### L 400.0100, L100.0200, L500.2900 ####[facility] [address] [place], [address] Color (U) Straw Normal Yellow [facility] Comment on above: Order Comment: UNKUr ine, Random Performed By: #### L 400.0100, L100.0200, L500.2900 ####[facility] [address] [place], [address] GLUCOSE, UR Normal Normal Normal [facility] Comment on above: Order Comment: UNKUr ine, Random Performed By: #### L 400.0100, L100.0200, L500.2900 ####[facility] [address] [place], [address] KETONE UR Negative Normal Negative [facility] Comment on above: Order Comment: UNKUr ine, Random Performed By: #### L 400.0100, L100.0200, L500.2900 ####[facility] [address] [place], [address] LEUK ESTERASE Negative Normal Negative [facility] Comment on above: Order Comment: UNKUr ine, Random Performed By: #### L 400.0100, L100.0200, L500.2900 ####[facility] [address] [place], [address] Nitrite Ql (U) Negative Normal Negative [facility] Comment on above: Order Comment: UNKUr ine, Random Performed By: #### L 400.0100, L100.0200, L500.2900 ####[facility] [address] [place], [address] OCCULT BLOOD-UR Negative Normal Negative [facility] Comment on above: Order Comment: UNKUr ine, Random Performed By: #### L 400.0100, L100.0200, L500.2900 ####[facility] [address] [place], [address] pH UR 6.5 Normal 5.0 - 8.0 [facility] Comment on above: Order Comment: UNKUr ine, Random Performed By: #### L 400.0100, L100.0200, L500.2900 ####[facility] [address] [place], [address] PROT DIPSTX Negative Normal Negative [facility] Comment on above: Order Comment: UNKUr ine, Random Performed By: #### L 400.0100, L100.0200, L500.2900 ####[facility] [address] [place], [address] SP.GR. DIPSTX 1.020 Normal 1.002-1.030 [facility] Comment on above: Order Comment: UNKUr ine, Random Performed By: #### L 400.0100, L100.0200, L500.2900 ####[facility] [address] [place], [address] UROBILI Normal Normal Normal [facility] Comment on above: Order Comment: UNKUr ine, Random Performed By: #### L 400.0100, L100.0200, L500.2900 ####[facility] [address] [place], [place], [address] Urine clarityOrdered By: [facility] ASSESSMENT on 03-09-2025 Clarity (U) Clear Clear [facility] Urine color determinationOrd ered By: HEALTH ASSESSMENT on 03-09-2025 Color (U) Straw Yellow [facility] Urine glucose detectionOrder ed By: HEALTH ASSESSMENT on 03-09-2025 Glucose Ql (U) Normal mg/dl Normal [facility] Urine leukocyte esterase det ection by dipstickOrdered By: HEALTH ASSESSMENT on 03-09-2025 Leukocyte esterase Test strip Ql (U) Negative Negative [facility] Urine pHOrdered By: HEALTH A SSESSMENT on 03-09-2025 pH (U) 6.5 [pH] 5.0 - 8.0 [facility] Urine specific gravity measu rementOrdered By: HEALTH ASSESSMENT on 03-09-2025 Specific gravity (U) [Rel density] 1.020 1.002-1.030 [facility] Urine urobilinogen measureme ntOrdered By: HEALTH ASSESSMENT on 03-09-2025 Urobilinogen Ql (U) Normal mg/dl Normal [facility] White blood cell (WBC) count Ordered By: HEALTH ASSESSMENT on 03-09-2025 WBC (Bld) [#/Vol] 5.9 10*3/uL Normal 4.4-11.0 [facility] Comment on above: Order Comment: SEND TO DR REYES Performed By: #### L 400.0100, L100.0200, L500.2900 ####[facility] [address] [place], [place], [address] MR/Jori 03-07-2025 MR/SERGIO.[facility] Medical Records Department [address] [place] [address] PAT - Anesthesia 03/07/25 0859 MR#: [id number] Acct: [id number] Name: ELIZABETH BABB Rep #: [id number] : 1975 49 From: Pasquale Lo MD PCP: KENISHA Pham Status:PRE [facility] Y Race: C Location: [facility] Pre-Assessment Diagnosis/Proposed Procedure Planned Operative Procedure(s): (L) LEFT KNEE ARTHROSCOPIC MEDIAL MENISCAL ROOT REPAIR 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 When Was Last Pacemaker Check QUESTION #4 FULL TEXT: You/Your Family Experience fever (hyperthermia) with Anesthesia Last Oral Intake Last Oral intake: Last Oral Intake NPO since Meds taken in AM with sips of water? Meds patient instructed to take am of surgery PONV PONV - transportation engineer: PONV - transportation engineer Female Yes 03/07/25 08:28 HX of Motion Sickness Yes 03/07/25 08:28 HX of N/V After Surgery Yes 03/07/25 08:28 Non-Smoker Yes 03/07/25 08:28 Duration of Surgery greater Yes 03/07/25 08:28 than 60 minutes Number of Risk Factors 5 03/07/25 08:28 PONV Score Severe Risk 03/07/25 08:28 Height Weight Height Weight: Anesthesia: Height Weight Height 5 ft 6 in 12/22/24 14:13 Respiratory Assessment Respiratory Assessment - transportation engineer: Respiratory Tract Infection Hx - transportation engineer Hx Respiratory Tract Infection No 03/07/25 08:28 STOP Sleep Apnea STOP Sleep Apnea - transportation engineer: STOP Sleep Apnea - transportation engineer Hx Hypertension Yes: CONTROLLED WITH MED 03/07/25 08:28 Hx Sleep Apnea No 03/07/25 08:28 CPAP No 03/07/25 08:28 BIPAP Do you snore loudly (louder No 03/07/25 08:28 than talking or can be heard Do you often feel tired/ No 03/07/25 08:28 fatigued/ sleepy during daytime? Has anyone observed you stop No 03/07/25 08:28 breathing during sleep? STOP Results Negative 03/07/25 08:28 QUESTION #5 FULL TEXT : Do you snore loudly (louder than talking or can be heard through closed doors)? 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 Specify any problems Hx of Preganancy in last 3 No 03/07/25 08:28 Months Nurse Filling Out Transfusion VCHRISTIN 03/07/25 08:28 Questions: Date: 03/07/25 03/07/25 08:28 Time: 08:29 03/07/25 08:28 Patient unable to answer at this time (ie. 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 Hx Now No 03/07/25 08:28 Gestational Age (in weeks): EDC: Hx Hx Para Hx Section SAB No 03/07/25 08:28 [facility] Medical History (Updated 03/07/25 @ 08:27 by Mavis Elliott) Normal Holter exam Anal fissure Effusion, left knee Diabetes Fatty liver Restless legs Shortness of breath on exertion Leg cramps Cardiology follow-up encounter History of echocardiogram History of stress test Nonrheumatic mitral valve disorder Fatty liver Essential hypertension Encounter for screening for COVID-19 Acute appendicitis Right lower quadrant pain Wears glasses Depression Anxiety Back pain Non-smoker History of edema Hypertension Labral tear of right hip joint Right hip pain Segmental and somatic dysfunction of pelvic region Segmental and somatic dysfunction of lumbar region Segmental and somatic dysfunction of thoracic region Segmental and somatic dysfunction of cervical region COVID-19 History of colonic polyps Back pain HTN (hypertension) Hemorrhoid Laceration of r (more content not included)... Normal [facility] Surgery Visit Reporton 12-22 Surgery Visit Report [facility] [address] [place] [address] [address] [place] [address] OFFICE VISIT Date of Service: 12/22/24 MR#: [id number] Acct: [id number] Name: ELIZABETH BABB Rep #: [id number] : 1975 Provider: Dr. Riley alexandre MD Age/Sex: 49/F Location: [facility] Status: Signed Intake Vital Signs 10/26/24 09:21 12/22/24 14:13 Height 5 ft 6 in 5 ft 6 in Weight: 245 lb BMI 39.5 BP 132/86 H Blood Pressure Location Rt brachial Position Sitting Respiration 17 Pulse 82 Pulse Source Monitor Pulse Oximetry (%) 96 Oxygen Delivery Method room air Intake Visit Reasons: HEMORRHOIDS Chief Complaint: hemorrhoids,anal fissure? Is patient in pain?: No Allergies latex Allergy (Verified 12/22/24 14:15) Swelling, itching Penicillins (PCN) Allergy (Verified 12/22/24 14:15) other Sulfa (Sulfonamide Antibiotics) Allergy (Verified 12/22/24 14:15) Hives, welts Medications ???Medication ???Instructions ???Recorded ???Confirmed ???Type sertraline 100 mg tablet 100 mg PO QHS mental health 12/22/24 History lisinopril 10 mg tablet 10 mg PO QHS blood pressure 12/22/24 History metformin 500 mg tablet,extended 500 mg PO DAILY 11/29/23 12/22/24 History release 24 hr ursodiol 250 mg tablet 250 mg PO BID #60 tabs 06/06/24 Rx vitamin E (dl, acetate) 180 mg 180 mg PO BID #60 caps 06/06/24 Rx (400 unit) capsule sertraline 50 mg tablet mg PO DAILY 10/26/24 12/22/24 Hist ory hydrocortisone acetate 25 mg 25 mg [place] BID #12 ea 11/03/2412/22 Rx rectal suppository Diltiazem 2% / Lidocaine 5% #1 ea 11/09/24 12/22/24 Rx ointment (compound) (Diltiazem 2%/Lidocaine 5% ointment (compound)) Hydrocortisone 2.5%/lidocaine 5% #42 ea 11/10/24 12/22/24 Rx suppository (cmpd) [facility] Medical History (Updated 12/22/24 @ 17:[address] Riley Swann MD) Anal fissure Effusion, left knee Diabetes Fatty liver Restless legs Shortness of breath on exertion Leg cramps Cardiology follow-up encounter History of echocardiogram History of stress test Nonrheumatic mitral valve disorder Fatty liver Essential hypertension Encounter for screening for COVID-19 Acute appendicitis Right lower quadrant pain Wears glasses Depression Anxiety Back pain Non-smoker History of edema Hypertension Labral tear of right hip joint Right hip pain Segmental and somatic dysfunction of pelvic region Segmental and somatic dysfunction of lumbar region Segmental and somatic dysfunction of thoracic region Segmental and somatic dysfunction of cervical region COVID-19 History of colonic polyps Back pain HTN (hypertension) Hemorrhoid Laceration of right thumb without foreign body without damage to nail Nephrolithiasis Urinary tract infection Surgical History History of adenoidectomy History of laparoscopic appendectomy ( 09/03/21) History of History of lithotripsy History of tonsillectomy History of colonoscopy ( 2015) History of hysterectomy ( 2011) History of cholecystectomy ( 2001) Family History Mother Hypertension Thyroid disorder Depression Rheumatoid arthritis Grandmother Parkinsons disease Social History household members: spouse and children housing: house number of children: 3 current occupational status: employed pets and animals: Yes Smoking Status: Never smoker alcohol intake: never substance use type: does not use caffeine: Yes (occasional) what type of physical activity do you participate in: none seatbelt use: always do you feel safe at home: Yes HPI HPI HPI: The patient is a 49-year-old female who is being seen today for rectal pain and possible hemorrhoid versus fissure. She recently had some rectal pain and occasional bleeding. She states that this pain was this initially excruciating after bowel movements. She saw GI and was prescribed hydrocortisone cream and suppositories along with diltiazem/lidocaine compounded ointment. It sounds as though it was uncertain if this was a hemorrhoid issue versus a fissure. Regardless, it sounds as though her symptoms have resolved however she wanted to keep today's appointment with me just for further evaluation and recommendations. She states that her pain is essentially resolved and her stools remain soft ROS General General: Yes weight change; No appetite, fatigue, colon cancer, breast cancer or weakness HEENT HEENT: No difficulty swallowing, eye injury, eye surgery, swollen glands or hoarseness Endo Endocrine: No thyroid disease, diabetes mellitus, thyroid cancer, Hair loss, heat intol (more content not included)... Normal [facility] Urgent Care Visit Reporton 0 12-16-2024 Urgent Care Visit Report [facility] [address], [address] [place] [address] OFFICE VISIT Date of Service: 12/16/24 MR#: [id number] Acct: [id number] Name: ELIZABETH BABB Rep #: [id number] : 1975 Provider: KENISHA Garcia Age/Sex: 49/F Location: [facility] Status: Signed Intake Vital Signs 10/26/24 09:21 12/16/24 12:39 Height 5 ft 6 in BP 122/77 H 110/66 Blood Pressure Location Rt brachial Lt brachial Position Sitting Sitting Respiration 18 17 Pulse 75 94 Pulse Source NIBP Temp 98.1 F 98.4 F Temp Source Oral Oral Pulse Oximetry (%) 96 95 Oxygen Delivery Method room air room air Intake Visit Reasons: WHEEZING, COUGH Chief Complaint: wheeze, cough, ears plugged Nremt Required: No Is patient in pain?: No Allergies latex Allergy (Verified 12/16/24 12:40) Swelling, itching Penicillins (PCN) Allergy (Verified 12/16/24 12:40) other Sulfa (Sulfonamide Antibiotics) Allergy (Verified 12/16/24 12:40) Hives, welts Is last menstrual period known: No Post menopausal: No Patient : No Have you fallen in the past year?: No Nurse's Note: wheeze, cough, ears plugged x 3weeks without resolve. has tried Doxy, prednisone, flonase, benzonatate without relief. also tried otc robitussin, coricedin, mucinex, nyquil without relief. [facility] Medical History (Updated 12/16/24 @ 12:58 by KENISHA Peck) Effusion, left knee Diabetes Fatty liver Restless legs Shortness of breath on exertion Leg cramps Cardiology follow-up encounter History of echocardiogram History of stress test Nonrheumatic mitral valve disorder Fatty liver Essential hypertension Encounter for screening for COVID-19 Acute appendicitis Right lower quadrant pain Wears glasses Depression Anxiety Back pain Non-smoker History of edema Hypertension Labral tear of right hip joint Right hip pain Segmental and somatic dysfunction of pelvic region Segmental and somatic dysfunction of lumbar region Segmental and somatic dysfunction of thoracic region Segmental and somatic dysfunction of cervical region COVID-19 History of colonic polyps Back pain HTN (hypertension) Hemorrhoid Laceration of right thumb without foreign body without damage to nail Nephrolithiasis Urinary tract infection Surgical History History of adenoidectomy History of laparoscopic appendectomy ( 09/03/21) History of History of lithotripsy History of tonsillectomy History of colonoscopy ( 2015) History of hysterectomy ( 2011) History of cholecystectomy ( 2001) Family History Mother Hypertension Thyroid disorder Depression Rheumatoid arthritis Grandmother Parkinsons disease Social History household members: spouse and children housing: house number of children: 3 current occupational status: employed pets and animals: Yes Smoking Status: Never smoker alcohol intake: never substance use type: does not use caffeine: Yes (occasional) what type of physical activity do you participate in: none seatbelt use: always do you feel safe at home: Yes HPI HPI Chief Complaint: wheeze, cough, ears plugged Details: ELIZABETH BABB, is a 49 F who presents to the office today for cold sx -seen here on 11/26 tx for max sinusitis with doxycycline for 7 days -saw ENT maybe around 12/05 -flonase -saw another provider on 12/11/2024 was given prednisone 20 mg for 5 days- completed that yesterday. Also taking benzonatate -sx since 11/26 feels wheezing in throat, ears feel full, congestion. Cough wet and dry- yellow discharge -denies myalgias, fever or chills, ST or sob -tried so far the above listed and Robitussin DM, mucinex, sudafed, nyquil, dayquil- albuterol inhaler- take full course of the atb's ROS Const Constitutional: Positive for other (ROS negative x6 except what was placed in HPI) Exam Const General: cooperative, comfortable and no acute distress Orientation: alert, awake and oriented x3 HENMT Head: normal to inspection and normocephalic Ears: hearing grossly normal bilaterally, external ears normal and TM's normal bilaterally Nose: external nose normal and other (+ congestion and rhinorrhea- moderate ) Face and sinus: normal facial exam, sinuses nontender and face symmetric Mouth: oral mucosae normal, lip normal, tongue normal, oropharynx normal and moist mucous membranes Throat: posterior oropharynx normal, tonsils normal, uvula midline and postnasal drainage Neck Neck: normal visual inspection, full ROM and no lymphadenopathy Resp Effort Inspection: normal respiratory effort, able to speak in complete sentences and symmetric chest movement Auscu (more content not included)... Normal [facility] Urgent Care Visit Reporton 0 11-26-2024 Urgent Care Visit Report [facility] [address], [address] [place] [address] OFFICE VISIT Date of Service: 11/26/24 MR#: [id number] Acct: [id number] Name: ELIZABETH BABB Rep #: [id number] : 1975 Provider: KENISHA blevins Age/Sex: 49/F Location: [facility] Status: Signed Intake Vital Signs 10/26/24 09:21 Height 5 ft 6 in BP 122/77 H Blood Pressure Location Rt brachial Position Sitting Respiration 18 Pulse 75 Temp 98.1 F Temp Source Oral Pulse Oximetry (%) 96 Oxygen Delivery Method room air Intake Visit Reasons: ST/BILAT EAR COMP/COUGH Chief Complaint: excess hair growth on chin-laser Allergies latex Allergy (Verified 10/26/24 09:22) Swelling, itching Penicillins (PCN) Allergy (Verified 10/26/24 09:22) other Sulfa (Sulfonamide Antibiotics) Allergy (Verified 10/26/24 09:22) Hives, welts [facility] Medical History (Updated 11/26/24 @ 11:07 by Keenan Tellez INSULATION INSPECTOR, INSULATION INSPECTOR-C) Effusion, left knee Diabetes Fatty liver Restless legs Shortness of breath on exertion Leg cramps Cardiology follow-up encounter History of echocardiogram History of stress test Nonrheumatic mitral valve disorder Fatty liver Essential hypertension Encounter for screening for COVID-19 Acute appendicitis Right lower quadrant pain Wears glasses Depression Anxiety Back pain Non-smoker History of edema Hypertension Labral tear of right hip joint Right hip pain Segmental and somatic dysfunction of pelvic region Segmental and somatic dysfunction of lumbar region Segmental and somatic dysfunction of thoracic region Segmental and somatic dysfunction of cervical region COVID-19 History of colonic polyps Back pain HTN (hypertension) Hemorrhoid Laceration of right thumb without foreign body without damage to nail Nephrolithiasis Urinary tract infection Surgical History History of adenoidectomy History of laparoscopic appendectomy ( 09/03/21) History of History of lithotripsy History of tonsillectomy History of colonoscopy ( 2016) History of hysterectomy ( 2012) History of cholecystectomy ( 2001) Family History Mother Hypertension Thyroid disorder Depression Rheumatoid arthritis Grandmother Parkinsons disease Social History household members: spouse and children housing: house number of children: 3 current occupational status: employed pets and animals: Yes Smoking Status: Never smoker alcohol intake: never substance use type: does not use caffeine: Yes (occasional) what type of physical activity do you participate in: none seatbelt use: always do you feel safe at home: Yes HPI HPI Chief Complaint: excess hair growth on chin-laser Details: ELIZABETH BABB, is a 49 F who presents to the office today for complaints of bilateral ear pain. This has been ongoing for the last approximately 5 days. She also notices nasal congestion, sinus pain, bilateral ear pain, and sore throat. She states this morning she woke up with her eyes matted shut. 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 ROS Const Constitutional: Positive for body ache, chills, fatigue and headache(s); No fever(s) or change in appetite Eyes Eyes: Positive for discharge; No blurry vision, change in vision, double vision, irritation, vision loss, dry eyes, bulging eyes, floaters, visual disturbances, eye pain, Light sensitivity, spots in vision, tunnel vision or other ENT ENT: Positive for ear or mastoid pain, nasal congestion, sinus pressure, sinus pain, nasal discharge, headache(s) and sore throat; No ear discharge, ear pressure, tinnitus, dizziness/vertigo, nosebleed/epistaxis, nose pain, post nasal drip, facial pain, dental pain, difficulty swallowing, bad breath, hoarseness, lip swelling, mouth lesions, mouth pain, neck pain, tongue swelling or throat swelling Resp Respiratory: No cough, change in phlegm color, chest congestion, hemoptysis, pain on inspiration, shortness of breath, pain with cough, stridor or wheezing Cardio Cardiology: No chest pain at rest, chest pain with exertion, shortness of breath, dyspnea on exertion or lightheadedness Gastro GI: No abdominal pain, change in bowel habits or difficulty swallowing Genitourinary-Female : No burning urination or urinary frequency Musc Musculoskeletal: No joint pain or neck pain Skin Skin: No rash Neuro Neurology: Positive for headache(s); No visual disturbances Psych Psychiatric: No change in appetite Endo Endocrine: Positive for fatigue Aller/Imm Allergy/Immunologic: No lip swelling, throat swelling, tongue swelling or wheezing Exam Const General: cooperative, healthy appearing, comfortable and no acu (more content not included)... Normal [facility] Gastroenterology Visit Repor ton 11-09-2024 Gastroenterology Visit Report [facility] Gastroenterology [address] [place] [address] OFFICE VISIT Date of Service: 11/09/24 MR#: [id number] Acct: [id number] Name: ELIZABETH BABB Rep #: [id number] : 1975 Provider: Gus Wen DO Age/Sex: 49/F Location[place] [facility] Status: Signed Intake Vital Signs 07/18/24 13:23 10/26/24 09:21 Height 5 ft 6 in 5 ft 6 in BP 114/72 Blood Pressure Location Rt brachial Position Sitting Respiration 16 Pulse 73 Temp 97.8 F Temp Source Oral Pulse Oximetry (%) 98 Oxygen Delivery Method room air Intake Visit Reasons: 6 M FU Allergies latex Allergy (Verified 10/26/24 09:22) Swelling, itching Penicillins (PCN) Allergy (Verified 10/26/24 09:22) other Sulfa (Sulfonamide Antibiotics) Allergy (Verified 10/26/24 09:22) Hives, welts Medications ???Medication ???Instructions ???Recorded ???Confirmed ???Type sertraline 100 mg tablet 100 mg PO QHS mental health 11/09/24 History lisinopril 10 mg tablet 10 mg PO QHS blood pressure 11/09/24 History metformin 500 mg tablet,extended 500 mg PO DAILY 11/29/23 11/09/24 History release 24 hr ursodiol 250 mg tablet 250 mg PO BID #60 tabs 06/06/24 Rx vitamin E (dl, acetate) 180 mg 180 mg PO BID #60 caps 06/06/24 Rx (400 unit) capsule sertraline 50 mg tablet mg PO DAILY 10/26/24 11/09/24 Hist ory hydrocortisone acetate 25 mg 25 mg [place] BID #12 ea 11/03/2411/09 Rx rectal suppository Diltiazem 2% / Lidocaine 5% #1 ea 11/09/24 11/09/24 Rx ointment (compound) (Diltiazem 2%/Lidocaine 5% ointment (compound)) hydrocortisone 2.5 % topical cream 1 applic W[place] QD-BID PRN hemorrhoi ds 11/09/24 11/09/24 Rx with perineal applicator #30 grams [facility] Medical History (Updated 11/09/24 @ 13:[address] Weber Friend, DO) Effusion, left knee Diabetes Fatty liver Restless legs Shortness of breath on exertion Leg cramps Cardiology follow-up encounter History of echocardiogram History of stress test Nonrheumatic mitral valve disorder Fatty liver Essential hypertension Encounter for screening for COVID-19 Acute appendicitis Right lower quadrant pain Wears glasses Depression Anxiety Back pain Non-smoker History of edema Hypertension Labral tear of right hip joint Right hip pain Segmental and somatic dysfunction of pelvic region Segmental and somatic dysfunction of lumbar region Segmental and somatic dysfunction of thoracic region Segmental and somatic dysfunction of cervical region COVID-19 History of colonic polyps Back pain HTN (hypertension) Hemorrhoid Laceration of right thumb without foreign body without damage to nail Nephrolithiasis Urinary tract infection Surgical History History of adenoidectomy History of laparoscopic appendectomy ( 09/03/21) History of History of lithotripsy History of tonsillectomy History of colonoscopy ( 2015) History of hysterectomy ( 2011) History of cholecystectomy ( 2001) Family History Mother Hypertension Thyroid disorder Depression Rheumatoid arthritis Grandmother Parkinsons disease Social History household members: spouse and children housing: house number of children: 3 current occupational status: employed pets and animals: Yes Smoking Status: Never smoker alcohol intake: never substance use type: does not use caffeine: Yes (occasional) what type of physical activity do you participate in: none seatbelt use: always do you feel safe at home: Yes HPI HPI Details: ELIZABETH BABB, is a 49 F who presents to the office today for follow up. abd/pelvis CT 11.05.23 1. Hepatic steatosis. 2. Status post cholecystectomy. 3. No focal acute inflammatory process. *BGI established 8 pt reports a long history of alternating bowels. Pt reports that she would like to discuss hemorrhoid banding. Pt states that she has dull off and on again pain in her RUQ that is sometimes a sharp pain. Pt has had a cholecystectomy, OV 11. - Has not started taking the ursodiol yet. Has not had any symptoms or concerns. OV 3..25 - pt is here for hemorrhoid evaluation / potential banding. Pt reports that when she has a bowel movement it feels like shards of glass. ROS Const Constitutional: No fatigue, fever(s) or weight change ENT ENT: No difficulty swallowing Gastro GI: Positive for diarrhea and Blood in stool; No abdominal pain, belching, bloating, change in bowel habits, change in stool character, coffee ground emesis, constipation, cramping, heartburn, difficulty swallowing, feeling full early, excessive flatus, incontinent (more content not included)... Normal [facility] OT D/C Summaryon 11-01-2024 OT D/C Summary [facility] Occupational Therapy [facility] [address] [place] [address] [address] [place] [address] / REHABILITATION SERVICES DISCHARGE SUMMARY MR#: [id number] Acct: [id number] Name: ELIZABETH BABB Rep #: [id number] : 1975 49 From: Mariaelena MCGINNIS/Tripp, T Referring Dr.: Dr. Marty Gil MD Status: R EG RCR Eval Date: Discharge Date: Discharge Summary D/C Summary: It has been my pleasure to treat ELIZABETH BABB under orders from Dr. Marty Gil MD, for the diagnosis of B Lateral Epicondylitis for a total of 19 visit(s). Please see the following information for a summary of their discharge status. 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 with HEP of eccentric pt has made adj for work ergonomics and brace as needed. pt agrees with d/c Goals Patient Goals: Regain Strength, Decrease Pain, Decrease Swelling/Stiffness, Use Hand/Wrist/Arm Normally Again, Decrease Tingling/Numbness, Increase ROM, Be More Independent in ADLS, Resume Former Household Responsibilities (Cooking,Cleaning,[address], etc.) and Resume Hobbies Goal:ROM equal to unaffected hand: Yes Goal:Funeral Planner/Pinch strength at least 75% of unaffected hand: Yes Goal:No pain with affected hand use: Yes Goal:Full use of affected hand in daily activities including work: Yes Goal:Improvement in sensation documented by [place] monofiliaments: Yes Other Goal: pt will improve quick dash score by 5 points or more (25) in order to improve overall functional use of L hand pt will verbalize 100% accuracy in proper bracing and joint protection techniques by third session in order to decrease pain and improve overall functional use of L hand Plan Plan: pain management stretch strengthen D/C Information Discharge Comments: pt had conservative tx for left latera epi- with fair success. pt will cont with HEP. pt agrees with D/C. d/c sentence: If there are questions or concerns regarding this patient's occupational therapy, please fell free to call me at [phone]. Thank you for the referral of this patient. Sincerely, RAS Rasmussen/Tripp, T 11/01/24 0714 CC: KENISHA Ward; Dr. Marty Gil MD MK Signed Normal [facility] Plastic Surgery Visit Report on 10-26-2024 Plastic Surgery Visit Report [facility] Plastic Reconstructive Surgery [address] [facility] [facility], [address] [place] [address] OFFICE VISIT Date of Service: 10/26/24 MR#: [id number] Acct: [id number] Name: ELIZABETH BABB Rep #: [id number] : 1975 Provider: KENISHA jacinto Age/Sex: 49/F Location[place] [facility] Status: Signed Intake Vital Signs 07/18/24 13:23 02/27/25 09:21 Height 5 ft 6 in 5 ft 6 in BP 114/72 122/77 H Blood Pressure Location Rt brachial Rt brachial Position Sitting Sitting Respiration 16 18 Pulse 73 75 Temp 97.8 F 98.1 F Temp Source Oral Oral Pulse Oximetry (%) 98 96 Oxygen Delivery Method room air room air Intake Visit Reasons: laser procedure Chief Complaint: excess hair growth on chin-laser Is patient in pain?: No Allergies latex Allergy (Verified 10/26/24 09:22) Swelling, itching Penicillins (PCN) Allergy (Verified 10/26/24 09:22) other Sulfa (Sulfonamide Antibiotics) Allergy (Verified 10/26/24 09:22) Hives, welts Medications ???Medication ???Instructions ???Recorded ???Confirmed ???Type sertraline 100 mg tablet 100 mg PO QHS mental health 07/26/24 History lisinopril 10 mg tablet 10 mg PO QHS blood pressure 07/26/24 History metformin 500 mg tablet,extended 500 mg PO DAILY 11/29/23 10/26/24 History release 24 hr ursodiol 250 mg tablet 250 mg PO BID #60 tabs 06/06/24 Rx vitamin E (dl, acetate) 180 mg 180 mg PO BID #60 caps 06/06/24 Rx (400 unit) capsule sertraline 50 mg tablet mg PO DAILY 10/26/24 10/26/24 Hist ory Nurse's Note: pt here for laser on chin [facility] Medical History (Updated 07/18/24 @ 14:26 by Desiree Lau INSULATION INSPECTOR, INSULATION INSPECTOR-C) Effusion, left knee Diabetes Fatty liver Restless legs Shortness of breath on exertion Leg cramps Cardiology follow-up encounter History of echocardiogram History of stress test Nonrheumatic mitral valve disorder Fatty liver Essential hypertension Encounter for screening for COVID-19 Acute appendicitis Right lower quadrant pain Wears glasses Depression Anxiety Back pain Non-smoker History of edema Hypertension Labral tear of right hip joint Right hip pain Segmental and somatic dysfunction of pelvic region Segmental and somatic dysfunction of lumbar region Segmental and somatic dysfunction of thoracic region Segmental and somatic dysfunction of cervical region COVID-19 History of colonic polyps Back pain HTN (hypertension) Hemorrhoid Laceration of right thumb without foreign body without damage to nail Nephrolithiasis Urinary tract infection Surgical History History of adenoidectomy History of laparoscopic appendectomy ( 09/03/21) History of History of lithotripsy History of tonsillectomy History of colonoscopy ( 2015) History of hysterectomy ( 2011) History of cholecystectomy ( 2001) Family History Mother Hypertension Thyroid disorder Depression Rheumatoid arthritis Grandmother Parkinsons disease Social History household members: spouse and children housing: house number of children: 3 current occupational status: employed pets and animals: Yes Smoking Status: Never smoker alcohol intake: never substance use type: does not use caffeine: Yes (occasional) what type of physical activity do you participate in: none seatbelt use: always do you feel safe at home: Yes HPI laser procedure Details: 49 year old female presents for presents for treatment for permanent hair reduction on her chin. She had any previous treatments in the past at other facilities and noticed minimal improvement. She typically plucks or shaves these bothersome areas. She states she is pre diabetic on Metformin. She denies a history of cold sores. She had IPL laser treatment for hair reduction here on 07/18/24. She stated she noticed an improvement and did not need to pluck or shave for almost 2 months. She denies any complications from her previous treatment. She comes in today for another treatment. The following conditions are applicable to the areas being treated. Patient denies active infection in the areas to be treated. There are no dysplastic nevi. There are no tattoos. There are not any significant concurrent skin conditions or any inflammatory skin conditions. There are no active cold sores, open lacerations, or abrasions. There are no chronic or cutaneous viral, fungal, or bacterial diseases. Patient states she has refrained from sun exposure and tanning for the past 4 weeks. There is no history or concurrent condition of skin cancer or pre-cancerous lesions at the treatment areas. Patient denies (more content not included)... Normal [facility] Lower Ext Joint Only (Routin e)on 10-19-2024 Lower Ext Joint Only (Routine) [facility] [address] [place] [address] Lower Ext Joint Only (Routine) MR#: [id number] Acct: [id number] Name: ELIZABETH BABB Rep #: [id number] : 1975 F 49 From: Mynor Kirkpatrick PCP: KENISHA Pham Status: REG CLI Study: Lower Ext Joint Only (Routine) Date of Exam: 0 10/19/24 Exam# [id number] Ordering Dr: Jacinto Smith DO PROCEDURE: MRI left knee without IV contrast REASON FOR EXAM: Pain, meniscal tear TECHNIQUE: Multisequence multiplanar MR images of the left knee were obtained without the administration of intravenous contrast. Imaging sequences were performed to best displaced suspected pathology. COMPARISON: None. FINDINGS Complex, near complete tear at the posterior root of the medial meniscus. Remaining portions of the medial meniscus are intact. Intact lateral meniscus. Anterior and posterior cruciate ligaments are intact. Extensor mechanism is intact. Medial collateral ligament is intact. Fluid within the medial collateral ligament bursa. Lateral collateral ligament complex is intact. Semimembranosus and pes tendons are intact. Partial-thickness chondral fissures along the peripheral aspect of the medial patellar facet. Trochlear cartilage is intact. Mild chondral fibrillation and thinning along the middle third of the medial femoral condyle. Lateral compartment cartilage is intact. Small joint effusion without synovitis. Negative for fracture or marrow replacement. No sizable Salinas's cyst. Small ganglion along the popliteus myotendinous junction containing at least 1 small chondral body. MRI/Lower Ext Joint Only (Routine) IMPRESSION: 1. Near-complete tear at the posterior root of the medial meniscus. 2. Intact cruciates and collaterals. 3. Mild medial and patellofemoral compartment chondrosis as above. 4. Small joint effusion. 5. Trace fluid in the medial collateral ligament bursa. 6. Small ganglion along the popliteus myotendinous junction. Reading Location: [facility] CC: KENISHA Ward; Dr. 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: Signed Normal [facility] Gastroenterology Visit Repor ton 07-26-2024 Gastroenterology Visit Report [facility] Gastroenterology [address] [place] [address] OFFICE VISIT Date of Service: 07/26/24 MR#: [id number] Acct: [id number] Name: ELIZABETH BABB Rep #: [id number] : 1975 Provider: Gus Wen DO Age/Sex: 49/F Location[place] [facility] Status: Signed Intake Vital Signs 02/11/24 11:00 07/18/24 13:23 Height 5 ft 6 in 5 ft 6 in Intake Visit Reasons: 3 M FU [place] Required: No Is patient in pain?: No Allergies latex Allergy (Verified 07/26/24 08:33) Swelling, itching Penicillins (PCN) Allergy (Verified 07/26/24 08:33) other Sulfa (Sulfonamide Antibiotics) Allergy (Verified 07/26/24 08:33) Hives, welts Medications ???Medication ???Instructions ???Recorded ???Confirmed ???Type sertraline 100 mg tablet 100 mg PO QHS mental health 08/30/17 07/26/24 History lisinopril 10 mg tablet 10 mg PO QHS blood pressure 12/14/17 07/26/24 History metformin 500 mg tablet,extended 500 mg PO DAILY 11/29/23 07/26/24 History release 24 hr ursodiol 250 mg tablet 250 mg PO BID #60 tabs 06/06/24 07/26/24 Rx vitamin E (dl, acetate) 180 mg 180 mg PO BID #60 caps 06/06/24 07/26/24 Rx (400 unit) capsule [facility] Medical History (Updated 07/18/24 @ 14:26 by Desiree Lau INSULATION INSPECTOR, INSULATION INSPECTOR-C) Effusion, left knee Diabetes Fatty liver Restless legs Shortness of breath on exertion Leg cramps Cardiology follow-up encounter History of echocardiogram History of stress test Nonrheumatic mitral valve disorder Fatty liver Essential hypertension Encounter for screening for COVID-19 Acute appendicitis Right lower quadrant pain Wears glasses Depression Anxiety Back pain Non-smoker History of edema Hypertension Labral tear of right hip joint Right hip pain Segmental and somatic dysfunction of pelvic region Segmental and somatic dysfunction of lumbar region Segmental and somatic dysfunction of thoracic region Segmental and somatic dysfunction of cervical region COVID-19 History of colonic polyps Back pain HTN (hypertension) Hemorrhoid Laceration of right thumb without foreign body without damage to nail Nephrolithiasis Urinary tract infection Surgical History History of adenoidectomy History of laparoscopic appendectomy ( 09/03/21) History of History of lithotripsy History of tonsillectomy History of colonoscopy ( 2015) History of hysterectomy ( 2011) History of cholecystectomy ( 2001) Family History Mother Hypertension Thyroid disorder Depression Rheumatoid arthritis Grandmother Parkinsons disease Social History household members: spouse and children housing: house number of children: 3 current occupational status: employed pets and animals: Yes Smoking Status: Never smoker alcohol intake: never substance use type: does not use caffeine: Yes (occasional) what type of physical activity do you participate in: none seatbelt use: always do you feel safe at home: Yes HPI HPI Details: ELIZABETH BABB, is a 49 F who presents to the office today for follow up. abd/pelvis CT 3.. 1. Hepatic steatosis. 2. Status post cholecystectomy. 3. No focal acute inflammatory process. *BGI established 8.28.24 pt reports a long history of alternating bowels. Pt reports that she would like to discuss hemorrhoid banding. Pt states that she has dull off and on again pain in her RUQ that is sometimes a sharp pain. Pt has had a cholecystectomy, OV 11.27.24 - Has not started taking the ursodiol yet. Has not had any symptoms or concerns. ROS Const Constitutional: Positive for fatigue; No fever(s) or weight change ENT ENT: No difficulty swallowing Gastro GI: Positive for constipation and diarrhea; No abdominal pain, belching, bloating, change in bowel habits, change in stool character, coffee ground emesis, cramping, heartburn, difficulty swallowing, feeling full early, excessive flatus, incontinent of stools, Vomiting blood/hematemesis, Blood in stool, loose stools, Black,tarry stools, nausea/dyspepsia, pain with swallowing, vomiting or other Musc Musculoskeletal: Positive for joint pain and stiffness Skin Skin: No yellowing of the eye or itchy eyes Psych Psychiatric: Positive for anxiety, Positive for depression and Positive for inattentiveness Endo Endocrine: Positive for fatigue; No weight change Aller/Imm Allergy/Immunologic: No itchy eyes Ki/Lymp Hematologic/Lymphati c: No easy bleeding or easy bruising Exam Const General: cooperative, healthy appearing and comfortable Nutritional Appearance: well nourished Orientation: alert, awake and oriented x3 HENMT Head: normal to inspection Ears: externa (more content not included)... Normal [facility] Plastic Surgery Visit Report on 07-18-2024 Plastic Surgery Visit Report [facility] Plastic Reconstructive Surgery [address], [address] [place] [address] OFFICE VISIT Date of Service: 07/18/24 MR#: [id number] Acct: [id number] Name: ELIZABETH BABB Rep #: [id number] : 1975 Provider: KENISHA jacinto Age/Sex: 49/F Location: [facility] Status: Signed Intake Vital Signs 02/11/24 11:00 07/18/24 13:23 Height 5 ft 6 in 5 ft 6 in BP 114/72 Blood Pressure Location Rt brachial Position Sitting Respiration 16 Pulse 73 Temp 97.8 F Temp Source Oral Pulse Oximetry (%) 98 Oxygen Delivery Method room air Intake Visit Reasons: laser consult/laser procedure Chief Complaint: excess hair growth on chin Is patient in pain?: No Allergies latex Allergy (Verified 07/18/24 13:24) Swelling, itching Penicillins (PCN) Allergy (Verified 07/18/24 13:24) other Sulfa (Sulfonamide Antibiotics) Allergy (Verified 07/18/24 13:24) Hives, welts Medications ???Medication ???Instructions ???Recorded ???Confirmed ???Type sertraline 100 mg tablet 100 mg PO QHS mental health 08/30/17 07/18/24 History lisinopril 10 mg tablet 10 mg PO QHS blood pressure 12/14/17 07/18/24 History metformin 500 mg tablet,extended 500 mg PO DAILY 11/29/23 07/18/24 History release 24 hr hydrocodone-acetamin ophen 5-325mg 1 tab PO Q6H PRN PRN Pain 3 days 02/11/24 07/18/24 Rx 5mg-325mg #10 TABLETS ursodiol 250 mg tablet 250 mg PO BID #60 tabs 06/06/24 07/18/24 Rx vitamin E (dl, acetate) 180 mg 180 mg PO BID #60 caps 06/06/24 07/18/24 Rx (400 unit) capsule Nurse's Note: pt here for laser consult on chin area [facility] Medical History (Updated 07/18/24 @ 14:26 by Desiree Lau INSULATION INSPECTOR, INSULATION INSPECTOR-C) Effusion, left knee Diabetes Fatty liver Restless legs Shortness of breath on exertion Leg cramps Cardiology follow-up encounter History of echocardiogram History of stress test Nonrheumatic mitral valve disorder Fatty liver Essential hypertension Encounter for screening for COVID-19 Acute appendicitis Right lower quadrant pain Wears glasses Depression Anxiety Back pain Non-smoker History of edema Hypertension Labral tear of right hip joint Right hip pain Segmental and somatic dysfunction of pelvic region Segmental and somatic dysfunction of lumbar region Segmental and somatic dysfunction of thoracic region Segmental and somatic dysfunction of cervical region COVID-19 History of colonic polyps Back pain HTN (hypertension) Hemorrhoid Laceration of right thumb without foreign body without damage to nail Nephrolithiasis Urinary tract infection Surgical History History of adenoidectomy History of laparoscopic appendectomy ( 09/03/21) History of History of lithotripsy History of tonsillectomy History of colonoscopy ( 2015) History of hysterectomy ( 2011) History of cholecystectomy ( 2001) Family History Mother Hypertension Thyroid disorder Depression Rheumatoid arthritis Grandmother Parkinsons disease Social History household members: spouse and children housing: house number of children: 3 current occupational status: employed pets and animals: Yes Smoking Status: Never smoker alcohol intake: never substance use type: does not use caffeine: Yes (occasional) what type of physical activity do you participate in: none seatbelt use: always do you feel safe at home: Yes HPI laser consult/laser procedure Details: 49 year old female presents for presents for treatment for permanent hair reduction on her chin. She had any previous treatments in the past at other facilities and noticed minimal improvement. She typically plucks or shaves these bothersome areas. It recently has been starting to become more bothersome for her. She states she is pre diabetic on Metformin. Today unable to visualized hair but able to feel some patches of stubble. She denies a history of cold sores. She would like to move forward with the laser treatments. The following conditions are applicable to the areas being treated. Patient denies active infection in the areas to be treated. There are no dysplastic nevi. There are no tattoos. There are not any significant concurrent skin conditions or any inflammatory skin conditions. There are no active cold sores, open lacerations, or abrasions. There are no chronic or cutaneous viral, fungal, or bacterial diseases. Patient states she has refrained from sun exposure and tanning for the past 4 weeks. There is no history or concurrent condition of skin cancer or pre-cancerous lesions at the treatment areas. Patient denies bleeding coagulopathies or aspirin products. She d (more content not included)... Normal [facility] CBCDIF (EXTERNAL)on 04-04-20 24 Basophils/100 WBC (Bld) 0.9 % 0 - 1.5 % [facility] Eosinophils/100 WBC (Bld) 3.1 % Abnormal 1 - 3 % [facility] Erythrocyte distribution width (RBC) [Ratio] 12.2 % 11.7 - 15.0 % [facility] Hematocrit (Bld) [Volume fraction] 43.0 % 39 - 55 % [facility] Hemoglobin (Bld) [Mass/Vol] 14.6 g/dL 14 - 16.5 g/dL [facility] Lymphocytes (Bld) [#/Vol] 1.51 10*3/uL 1.2 - 4 K/uL [facility] Lymphocytes/100 WBC (Bld) 32.9 % Abnormal 20 - 30 % [facility] MCH (RBC) [Entitic mass] 29.3 pg 25. 4 - 34.6 pg [facility] MCHC (RBC) [Mass/Vol] 34.0 g/dL 30 - 36 g/dL [facility] MCV (RBC) [Entitic vol] 86.3 fL 79 - 98 fL [facility] Monocytes/100 WBC (Bld) 9.8 % Abnormal 2 - 8 % [facility] NEUT ABS 2.4 K/uL 1.9 - 8 K/uL [facility] Neutrophils/100 WBC (Bld) 52.9 % 40 - 74 % [facility] Platelet mean volume (Bld) [Entitic vol] 9.9 fL 7.4 - 10.4 fL [facility] Platelets (Bld) [#/Vol] 244 10*3/uL 140 - 440 K/uL [facility] RBC (Bld) [#/Vol] 4.98 10*6/uL [facility] RDW-SD 38.3 fl 35.1 - 43.9 fl [facility] WBC (Bld) [#/Vol] 4.6 10*3/uL 3.9 - 11 K/uL [facility] CMP (EXTERNAL)on 04-04-2024 Albumin [Mass/Vol] 3.8 g/dL [facility] Alk Phos Total 67 U/L 45 - 117 U/L [facility] ALT [Catalytic activity/Vol] 64 U/L 12 - 78 U/L [facility] AST [Catalytic activity/Vol] 53 U/L Abnormal 8 - 37 U/L [facility] Bili Total 1.10 mg/dL Abnormal 0.2 - 1 mg/dL [facility] Calcium [Mass/Vol] 9.5 mg/dL 8.5 - 10. 1 mg/dL [facility] Chloride [Moles/Vol] 105 mmol/L [facility] CO2 [Moles/Vol] 27.0 mmol/L [facility] Creatinine [Mass/Vol] 0.82 mg/dL [facility] GFR 78 mL/MIN [facility] GFR AFR AMER 95 mL/MIN [facility] Glucose [Mass/Vol] 140 mg/dL Abnormal [facility] Potassium [Moles/Vol] 4.0 mmol/L 3.5 - 5.1 mmol/L [facility] Protein [Mass/Vol] 7.4 g/dL [facility] Sodium [Moles/Vol] 138 mmol/L 136 - 145 mmol/L [facility] Urea nitrogen [Mass/Vol] 18 mg/dL [facility] LIPID PANEL (EXTERNAL)on Cholesterol [Mass/Vol] 209 mg/dL Abnormal Cl [facility] HDC-L 40 mg/dL - 41 mg/dL [facility] LDL Chol, calculated 119 [facility] Triglyceride [Mass/Vol] 248 mg/dL Abnormal - 149 mg/dL [facility] No Panel Informationon 04-04 Interpretation and review of laboratory results Abnormal [facility] Basophil percentageOrdered B y: Mena Duggan on 11-30-2023 Chloride [Moles/Vol] 106 mmol/L 98-107 [facility] Glucose [Mass/Vol] 140 mg/dL 74-106 [facility] Comment on above: Fasting Glucose resu lt greater than or equal to 126 mg/dL suggests DIABETES MELLITUS per A.D.A. criteria. Hemoglobin (Bld) [Mass/Vol] 14.5 g/dL 12.0-15.0 [facility] Potassium [Moles/Vol] 4.0 mmol/L 3.5-5.1 [facility] Sodium [Moles/Vol] 137 mmol/L 136-145 [facility] WBC (Bld) [#/Vol] 6.5 10*3/uL 4.4-11.0 [facility] Determination of erythrocyte mean corpuscular volume (MCV)Ordered By: Mena Duggan on 11-30-2023 MCV (RBC) [Entitic vol] 85.9 fL 81-99 [place] Erythrocyte distribution wid th ratioOrdered By: Mena Duggan on 11-30-2023 Erythrocyte distribution width (RBC) [Ratio] 12.1 % 11.6-14.6 [facility] Erythrocyte distribution wid th standard deviationOrdered By: Mena Duggan on 11-30-2023 Erythrocyte distribution width (RBC) [Entitic vol] 37.4 fL 35.1-43.9 [facility] Hematocrit Auto (Bld) [Volum e fraction]Ordered By: Mena Duggan on 11-30-2023 Hematocrit (Bld) [Volume fraction] 42.2 % 37-47 [facility] Laboratory - Chemistry and C hemistry - challengeOrdered By: Mena Duggan on 11-30-2023 CO2 [Moles/Vol] 26.0 mmol/L 21.0-32.0 [facility] Urea nitrogen/Creatinine [Mass ratio] 23.5 mg/mg 10-20 [facility] Laboratory - Hematology and Cell countsOrdered By: Mena Duggan on 11-30-2023 MCH (RBC) [Entitic mass] 29.5 pg 27.0-32.0 [facility] MCHC (RBC) [Mass/Vol] 34.4 g/dL 32-36 [facility] Platelet mean volume (Bld) [Entitic vol] 10.1 fL 6.2-12.0 [facility] Platelets (Bld) [#/Vol] 235 10*3/uL 150-450 [facility] No Panel InformationOrdered By: Mena Duggan on 11-30-2023 Estimated GFR (MDRD) Amer 111 mL/min >60 [facility] Comment on above: GFR Calc Estimated GFR (MDRD) Non-Af Amer 91 mL/min >60 [facility] Comment on above: Non- GFR Calc RBC Auto (Bld) [#/Vol]Ordere d By: Mena Duggan on 11-30-2023 RBC (Bld) [#/Vol] 4.91 10*6/uL 4.2-5.4 [facility] Serum or plasma calcium lydia urement (mass/volume)Ordered By: Mena Duggan on 11-30-2023 Calcium [Mass/Vol] 9.5 mg/dL 8.5-10.1 [facility] Serum or plasma creatinine m easurement (mass/volume)Ordered By: Mena Duggan on 11-30-2023 Creatinine [Mass/Vol] 0.72 mg/dL 0.55-1.02 [facility] Comment on above: The validity of the calculated GFR & GFRAA in patients over 70 years has not been determined. Clinical correlation is essential. Serum or plasma urea nitroge n measurement (mass/volume)Ordered By: Mena Duggan on 11-30-2023 Urea nitrogen [Mass/Vol] 17 mg/dL 7-18 [facility] Thin prep Papanicolaou smear with manual screeningOrdered By: Mena Duggan on 11-30-2023 Thin prep Papanicolaou smear with manual screening 5 5-15 [facility] Culture, urineOrdered By: Theo Duggan on 11-25-2023 Bacteria identified Cx Nom (U) Positive [facility] Basophil percentageOrdered B y: Silvana Ward on 09-24-2023 Basophil percentage 0-5 SEEN /hpf 0-5 [facility] Bilirubin Test strip Ql (U)O rdered By: Silvana Ward on 09-24-2023 Bilirubin Ql (U) 1 mg/dL Negative [facility] Comment on above: COLOR OF URINE MAY A FFECT DIPSTICK RESULTS. Culture, urineOrdered By: Cely Ward on 09-24-2023 Bacteria identified Cx Nom (U) Positive [facility] Bacteria identified Cx Nom (U) Positive [facility] Ketones Test strip Ql (U)Ord ered By: Silvana Ward on 09-24-2023 Ketones Ql (U) 5 mg/dl Negative [facility] Mucus LM Ql (Urine sed)Order ed By: Silvana Ward on 09-24-2023 Mucus Ql (Urine sed) RARE /hpf [facility] Nitrite Test strip Ql (U)Ord ered By: Silvana Ward on 09-24-2023 Nitrite Ql (U) Negative Negative [facility] No Panel InformationOrdered By: Silvana Ward on 09-24-2023 Urine RBC 25-50 SEEN /hpf 0-5 [facility] Protein Test strip Ql (U)Ord ered By: Silvana Ward on 09-24-2023 Protein Ql (U) 30 mg/dl Negative [facility] Squamous epithelial cells de tection in urine sediment by light microscopyOrdered By: Silvana Ward on 09-24-2023 Epithelial cells.squamous LM Ql (Urine sed) 0-5 SEEN /hpf 5-10 [facility] Urine blood detectionOrdered By: Silvana Ward on 09-24-2023 RBC Ql (U) 250 /ul Negative [facility] Urine clarityOrdered By: Jenna Ward on 09-24-2023 Clarity (U) Clear Clear [facility] Urine color determinationOrd ered By: Silvana Ward on 09-24-2023 Color (U) Yellow Yellow [facility] Urine glucose detectionOrder ed By: Silvana Ward on 09-24-2023 Glucose Ql (U) Normal mg/dl Normal [facility] Urine leukocyte esterase det ection by dipstickOrdered By: Silvana Ward on 09-24-2023 Leukocyte esterase Test strip Ql (U) 25 /ul Negative [facility] Urine pHOrdered By: Silvana Ward on 09-24-2023 pH (U) 5.0 [pH] 5.0 - 8.0 [facility] Urine sediment bacteria coun t by microscopy (number/high power field)Ordered By: Silvana Ward on 09-24-2023 Bacteria LM.HPF (Urine sed) [#/Area] RARE /hpf None Seen [facility] Urine specific gravity measu rementOrdered By: Silvana Ward on 09-24-2023 Specific gravity (U) [Rel density] 1.025 1.002-1.030 [facility] Urine urobilinogen measureme ntOrdered By: Silvana Ward on 09-24-2023 Urobilinogen Ql (U) Normal mg/dl Normal [facility] Absolute lymphocyte countOrd ered By: Silvana Ward on 08-03-2023 Lymphocytes Auto (Unsp spec) [#/Vol] 2.79 10*3/uL 0.83-4.51 [facility] Basophil percentageOrdered B y: Silvana Ward on 08-03-2023 Basophil percentage 0-5 SEEN /hpf 0-5 [facility] Basophils/100 WBC (Bld) 0.8 % 0-1 [place] Chloride [Moles/Vol] 104 mmol/L 98-107 [facility] Eosinophils/100 WBC (Bld) 2.3 % 0-5 [facility] Glucose [Mass/Vol] 108 mg/dL 74-106 [facility] Comment on above: Fasting Glucose resu lt from 100 to 125 mg/dL suggests IMPAIRED HOMEOSTASIS per A.D.A. criteria. Neutrophils (Bld) [#/Vol] 4.2 10*3/uL 2.0-7.7 [facility] Neutrophils/100 WBC (Bld) 53.1 % 47-70 [facility] Potassium [Moles/Vol] 4.2 mmol/L 3.5-5.1 [facility] Sodium [Moles/Vol] 135 mmol/L 136-145 [facility] WBC (Bld) [#/Vol] 7.9 10*3/uL 4.4-11.0 [facility] Bilirubin Test strip Ql (U)O rdered By: Silvana Ward on 08-03-2023 Bilirubin Ql (U) Negative Negative [facility] Blood erythrocytes count (nu mber/volume)Ordered By: Silvana Ward on 08-03-2023 RBC (Bld) [#/Vol] 5.00 10*6/uL 4.2-5.4 [facility] Blood hemoglobin measurement (mass/volume)Ordered By: Silvana Ward on 08-03-2023 Hemoglobin (Bld) [Mass/Vol] 15.1 g/dL 12.0-15.0 [facility] Blood lymphocytes/100 leukoc ytesOrdered By: Silvana Ward on 08-03-2023 Lymphocytes/100 WBC (Bld) 35.1 % 19-41 [facility] Blood monocytes/100 leukocyt esOrdered By: Silvana Ward on 08-03-2023 Monocytes/100 WBC (Bld) 8.2 % 0-10 [facility] Blood platelet mean volumeOr dered By: Silvana Ward on 08-03-2023 Platelet mean volume (Bld) [Entitic vol] 10.5 fL 6.2-12.0 [facility] Culture, urineOrdered By: Cely Ward on 08-03-2023 Bacteria identified Cx Nom (U) Culture exhibits no growth. [facility] Bacteria identified Cx Nom (U) Culture exhibits no growth. [facility] Determination of erythrocyte mean corpuscular volume (MCV)Ordered By: Silvana Ward on 08-03-2023 MCV (RBC) [Entitic vol] 88.4 fL 81-99 [facility] Hematocrit Auto (Bld) [Volum e fraction]Ordered By: Silvana Ward on 08-03-2023 Hematocrit (Bld) [Volume fraction] 44.2 % 37-47 [facility] Ketones Test strip Ql (U)Ord ered By: Silvana Ward on 08-03-2023 Ketones Ql (U) Negative Negative [facility] Laboratory - Chemistry and C hemistry - challengeOrdered By: Silvana Ward on 08-03-2023 CO2 [Moles/Vol] 26.0 mmol/L 21.0-32.0 [facility] Urea nitrogen/Creatinine [Mass ratio] 22.2 mg/mg 10-20 [facility] Laboratory - Hematology and Cell countsOrdered By: Silvana Ward on 08-03-2023 Erythrocyte distribution width (RBC) [Entitic vol] 38.5 fL 35.1-43.9 [facility] Erythrocyte distribution width (RBC) [Ratio] 12.0 % 11.6-14.6 [facility] Immature granulocytes/100 WBC (Bld) 0.500 % 0.0-0.9 [facility] Comment on above: IG% - Immature Granu locytes (promyelocytes, myelocytes and metamyelocytes) > 1% indicates that a LEFT SHIFT is Present. MCH (RBC) [Entitic mass] 30.2 pg 27.0-32.0 [facility] Nucleated RBC/100 WBC (Bld) [Ratio] 0 % 0-5 [facility] MCHC Auto (RBC) [Mass/Vol]Or dered By: Silvana Ward on 08-03-2023 MCHC (RBC) [Mass/Vol] 34.2 g/dL 32-36 [facility] Mucus LM Ql (Urine sed)Order ed By: Silvana Ward on 08-03-2023 Mucus Ql (Urine sed) 0 SEEN /hpf [facility] Nitrite Test strip Ql (U)Ord ered By: Silvana Ward on 08-03-2023 Nitrite Ql (U) Negative Negative [facility] No Panel InformationOrdered By: Silvana Ward on 08-03-2023 Estimated GFR (MDRD) Amer 103 mL/min >60 [facility] Comment on above: GFR Calc Estimated GFR (MDRD) Non-Af Amer 85 mL/min >60 [facility] Comment on above: Non- GFR Calc Platelets bldOrdered By: Jenna Ward on 08-03-2023 Platelets (Bld) [#/Vol] 311 10*3/uL 150-450 [facility] Protein Test strip Ql (U)Ord ered By: Silvana Ward on 08-03-2023 Protein Ql (U) 30 mg/dl Negative [facility] Serum or plasma calcium lydia urement (mass/volume)Ordered By: Silvana Ward on 08-03-2023 Calcium [Mass/Vol] 9.4 mg/dL 8.5-10.1 [facility] Serum or plasma creatinine m easurement (mass/volume)Ordered By: Silvana Ward on 08-03-2023 Creatinine [Mass/Vol] 0.77 mg/dL 0.55-1.02 [facility] Comment on above: The validity of the calculated GFR & GFRAA in patients over 70 years has not been determined. Clinical correlation is essential. Serum or plasma urea nitroge n measurement (mass/volume)Ordered By: Silvana Ward on 08-03-2023 Urea nitrogen [Mass/Vol] 17 mg/dL 7-18 [facility] Squamous epithelial cells de tection in urine sediment by light microscopyOrdered By: Silvana Ward on 08-03-2023 Epithelial cells.squamous LM Ql (Urine sed) 0-5 SEEN /hpf 5-10 [facility] Thin prep Papanicolaou smear with manual screeningOrdered By: Silvana Ward on 08-03-2023 Thin prep Papanicolaou smear with manual screening 5 5-15 [facility] Urine blood detectionOrdered By: Silvana Ward on 08-03-2023 RBC Ql (U) 250 /ul Negative [facility] RBC Ql (U) > 100 SEEN /hpf 0-5 [facility] Urine clarityOrdered By: Jenna Ward on 08-03-2023 Clarity (U) Clear Clear [facility] Urine color determinationOrd ered By: Silvana Ward on 08-03-2023 Color (U) Yellow Yellow [facility] Urine glucose detectionOrder ed By: Silvana Ward on 08-03-2023 Glucose Ql (U) Normal mg/dl Normal [facility] Urine leukocyte esterase det ection by dipstickOrdered By: Silvana Ward on 08-03-2023 Leukocyte esterase Test strip Ql (U) 25 /ul Negative [facility] Urine pHOrdered By: Silvana Ward on 08-03-2023 pH (U) 5.0 [pH] 5.0 - 8.0 [facility] Urine sediment bacteria coun t by microscopy (number/high power field)Ordered By: Silvana Ward on 08-03-2023 Bacteria LM.HPF (Urine sed) [#/Area] 0 /[HPF] None Seen [facility] Urine specific gravity measu rementOrdered By: Silvana Ward on 08-03-2023 Specific gravity (U) [Rel density] 1.020 1.002-1.030 [facility] Urobilinogen Auto test strip Ql (U)Ordered By: Silvana Ward on 08-03-2023 Urobilinogen Ql (U) Normal mg/dl Normal [facility] UA DIP, URINE (POC)on 2022 BILIRUBIN UA (POCT) Negative Negative [facility] CLARITY UA (POCT) Cloudy [facility] COLOR UA (POCT) Eli [facility] GLUCOSE UA (POCT) Negative Negative mg/dL [facility] Hemoglobin Ql (U) Large Abnormal [facility] KETONE UA (POCT) Negative Negative mg/dL [facility] LEUKOCYTES UA (POCT) Negative [facility] NITRITE UA (POCT) Negative Negative [facility] PH UA (POCT) 6.0 4.5 - 8.0 [facility] Protein Ql (U) Trace Abnormal Negative mg/dL [facility] SPECIFIC GRAVITY UA (POCT) 1.020 1.005 - 1.030 [facility] UROBILINOGEN UA (POCT) 0.2 E.U./dL Miguelina l E.U./dL [facility] Basophil percentageOrdered B y: Silvana Ward on 04-06-2023 Bilirubin [Mass/Vol] 1.10 mg/dL 0.20-1.00 [facility] Comment on above: For patients on eltr ombopag therapy, use of Dimension [place] TBIL is not recommended. Protein [Mass/Vol] 7.4 g/dL 6.4-8.2 [facility] Direct bilirubinOrdered By: Silvana Ward on 04-06-2023 Bilirubin.direct [Mass/Vol] 0.21 mg/dL 0.00-0.30 [facility] Laboratory - Chemistry and C hemistry - challengeOrdered By: Silvana Ward on 04-06-2023 ALP [Catalytic activity/Vol] 71 U/L 45-117 [facility] ALT [Catalytic activity/Vol] 75 U/L 13-56 [facility] Globulin (S) [Mass/Vol] 3.6 g/dL 2.2-4.2 [facility] No Panel InformationOrdered By: Silvana Ward on 04-06-2023 Hepatitis A IgM Antibody Negative Negative [facility] Hepatitis B Core IgM Antibody Negative Negative [facility] Hepatitis C Antibody (EIA) Non-Reactive Non Reactive [facility] Hepatitis C Antibody Comment Comment . [facility] Comment on above: Not infected with HC V unless early or acute infection issuspected (which may be delayed in an immunocompromisedindividual), or other evidence exists to indicate HCVinfection.Performed at: [facility] [address] [id number] Director: Emiliano Nguyen PhD, Phone: [phone] Serum or plasma albumin lydia urement (mass/volume)Ordered By: Silvana Ward on 04-06-2023 Albumin [Mass/Vol] 3.8 g/dL 3.2-5.0 [facility] Serum or plasma hepatitis B virus surface antigen detection by immunoassayOrdered By: Silvana Ward on 04-06-2023 HBV surface Ag IA Ql Negative Negative [facility] Thin prep Papanicolaou smear with manual screeningOrdered By: Silvana Ward on 04-06-2023 Thin prep Papanicolaou smear with manual screening 47 U/L 15-37 [facility] Whole blood hemoglobin A1c/t otal hemoglobin ratio (mass fraction)Ordered By: Silvana Ward on 04-06-2023 HbA1c (Bld) [Mass fraction] 6.0 % 3.8-5.6 [facility] Comment on above: Normal < 5.7 % Predi abetic 5.7 - 6.4 % Diabetic >or= 6.5 % Please note range changes. Absolute lymphocyte countOrd ered By: HEALTH ASSESSMENT on 04-01-2023 Lymphocytes Auto (Unsp spec) [#/Vol] 2.34 10*3/uL 0.83-4.51 [facility] Absolute reticulocyte countO rdered By: HEALTH ASSESSMENT on 04-01-2023 Reticulocytes (Bld) [#/Vol] 0.00 10*3/uL 0-5 [facility] Basophil percentageOrdered B y: HEALTH ASSESSMENT on 04-01-2023 Basophil percentage 3.3 mg/dL 2.5-4.9 [facility] Bilirubin [Mass/Vol] 0.80 mg/dL 0.20-1.00 [facility] Comment on above: For patients on eltr ombopag therapy, use of Dimension [place] TBIL is not recommended. Chloride [Moles/Vol] 106 mmol/L 98-107 [facility] Cholesterol [Mass/Vol] 207 mg/dL <200 [facility] Comment on above: <200 mg/dL Desirable 200-240 mg/dL Borderline >240 mg/dL High [facility] Glucose [Mass/Vol] 139 mg/dL 74-106 [facility] Comment on above: Fasting Glucose resu lt greater than or equal to 126 mg/dL suggests DIABETES MELLITUS per A.D.A. criteria. LDH [Catalytic activity/Vol] 154 U/L 84-246 [facility] Neutrophils (Bld) [#/Vol] 2.3 10*3/uL 2.0-7.7 [facility] Potassium [Moles/Vol] 4.2 mmol/L 3.5-5.1 [facility] Protein [Mass/Vol] 7.4 g/dL 6.4-8.2 [facility] Sodium [Moles/Vol] 137 mmol/L 136-145 [facility] Triglyceride [Mass/Vol] 218 mg/dL <199 [facility] Comment on above: The drugs N-Acetylcy steine and Metamizole may falsely depress this assay.Serum Triglycerides Reference Interval Normal <150 mg/dL Borderline high 150 - 199 mg/dL High 200 - 499 mg/dL Very High > or = 500 mg/dL WBC (Bld) [#/Vol] 5.3 10*3/uL 4.4-11.0 [facility] Bilirubin Test strip Ql (U)O rdered By: HEALTH ASSESSMENT on 04-01-2023 Bilirubin Ql (U) Negative Negative [facility] Blood erythrocytes count (nu mber/volume)Ordered By: HEALTH ASSESSMENT on 04-01-2023 RBC (Bld) [#/Vol] 5.06 10*6/uL 4.2-5.4 [facility] Blood hemoglobin measurement (mass/volume)Ordered By: HEALTH ASSESSMENT on 04-01-2023 Hemoglobin (Bld) [Mass/Vol] 15.3 g/dL 12.0-15.0 [facility] Blood platelet mean volumeOr dered By: HEALTH ASSESSMENT on 04-01-2023 Platelet mean volume (Bld) [Entitic vol] 10.3 fL 6.2-12.0 [facility] Determination of erythrocyte mean corpuscular volume (MCV)Ordered By: HEALTH ASSESSMENT on 04-01-2023 MCV (RBC) [Entitic vol] 87.0 fL 81-99 [facility] Direct bilirubinOrdered By: HEALTH ASSESSMENT on 04-01-2023 Bilirubin.direct [Mass/Vol] 0.17 mg/dL 0.00-0.30 [facility] Hematocrit Auto (Bld) [Volum e fraction]Ordered By: HEALTH ASSESSMENT on 04-01-2023 Hematocrit (Bld) [Volume fraction] 44.0 % 37-47 [facility] Ketones Test strip Ql (U)Ord ered By: HEALTH ASSESSMENT on 04-01-2023 Ketones Ql (U) Negative Negative [facility] Laboratory - Chemistry and C hemistry - challengeOrdered By: HEALTH ASSESSMENT on 04-01-2023 ALP [Catalytic activity/Vol] 71 U/L 45-117 [facility] ALT [Catalytic activity/Vol] 68 U/L 13-56 [facility] Cholesterol.total/Choles terol in HDL [Mass ratio] 4.80 {ratio} [facility] CO2 [Moles/Vol] 25.0 mmol/L 21.0-32.0 [facility] Globulin (S) [Mass/Vol] 3.5 g/dL 2.2-4.2 [facility] Urea nitrogen/Creatinine [Mass ratio] 24.4 mg/mg 10-20 [facility] Laboratory - Hematology and Cell countsOrdered By: HEALTH ASSESSMENT on 04-01-2023 Erythrocyte distribution width (RBC) [Entitic vol] 38.1 fL 35.1-43.9 [facility] Erythrocyte distribution width (RBC) [Ratio] 11.9 % 11.6-14.6 [facility] MCH (RBC) [Entitic mass] 30.2 pg 27.0-32.0 [facility] Nucleated RBC/100 WBC (Bld) [Ratio] 0 % 0-5 [facility] MCHC Auto (RBC) [Mass/Vol]Or dered By: HEALTH ASSESSMENT on 04-01-2023 MCHC (RBC) [Mass/Vol] 34.8 g/dL 32-36 [facility] Nitrite Test strip Ql (U)Ord ered By: HEALTH ASSESSMENT on 04-01-2023 Nitrite Ql (U) Negative Negative [facility] No Panel InformationOrdered By: HEALTH ASSESSMENT on 04-01-2023 Estimated GFR (MDRD) Amer 96 mL/min >60 [facility] Comment on above: GFR Calc Estimated GFR (MDRD) Non-Af Amer 79 mL/min >60 [facility] Comment on above: Non- GFR Calc Platelets bldOrdered By: [facility] ASSESSMENT on 04-01-2023 Platelets (Bld) [#/Vol] 262 10*3/uL 150-450 [facility] Protein Test strip Ql (U)Ord ered By: HEALTH ASSESSMENT on 04-01-2023 Protein Ql (U) Negative Negative [facility] Segmented neutrophils/100 WB C Auto (Bld)Ordered By: HEALTH ASSESSMENT on 04-01-2023 Segmented neutrophils/100 WBC (Bld) 42.5 % 47-70 [facility] Serum or plasma albumin lydia urement (mass/volume)Ordered By: HEALTH ASSESSMENT on 04-01-2023 Albumin [Mass/Vol] 3.9 g/dL 3.2-5.0 [facility] Serum or plasma albumin/glob ulin mass ratioOrdered By: HEALTH ASSESSMENT on 04-01-2023 Albumin/Globulin [Mass ratio] 1.1 {ratio} 0.9-2.4 [facility] Serum or plasma calcium lydia urement (mass/volume)Ordered By: HEALTH ASSESSMENT on 04-01-2023 Calcium [Mass/Vol] 9.3 mg/dL 8.5-10.1 [facility] Serum or plasma cholesterol in HDL measurement (mass/volume)Ordered By: HEALTH ASSESSMENT on 04-01-2023 Cholesterol in HDL [Mass/Vol] 43 mg/dL >40 [facility] Comment on above: The drugs N-Acetylcy steine and Metamizole may falsely depress this assay. Reference Range HDL <40 mg/dL Low HDL Cholesterol HDL >or= 60 mg/dL High HDL Cholesterol Serum or plasma cholesterol in VLDL measurement (mass/volume)Ordered By: HEALTH ASSESSMENT on 04-01-2023 Cholesterol in VLDL [Mass/Vol] 44 mg/dL 5-40 [facility] Serum or plasma creatinine m easurement (mass/volume)Ordered By: HEALTH ASSESSMENT on 04-01-2023 Creatinine [Mass/Vol] 0.82 mg/dL 0.55-1.02 [facility] Comment on above: The validity of the calculated GFR & GFRAA in patients over 70 years has not been determined. Clinical correlation is essential. Serum or plasma low density lipoprotein (LDL) cholesterol measurement (mass/volume)Ordered By: HEALTH ASSESSMENT on 04-01-2023 Cholesterol in LDL [Mass/Vol] 120 mg/dL 0-130 [facility] Serum or plasma urea nitroge n measurement (mass/volume)Ordered By: HEALTH ASSESSMENT on 04-01-2023 Urea nitrogen [Mass/Vol] 20 mg/dL 7-18 [facility] Serum or plasma uric acid me asurement (mass/volume)Ordered By: HEALTH ASSESSMENT on 04-01-2023 Urate [Mass/Vol] 7.2 mg/dL 2.6-6.0 [facility] Comment on above: The drugs N-Acetylcy steine and Metamizole may falsely depress this assay. Thin prep Papanicolaou smear with manual screeningOrdered By: HEALTH ASSESSMENT on 04-01-2023 Thin prep Papanicolaou smear with manual screening 41 U/L 15-37 [facility] Thin prep Papanicolaou smear with manual screening 6 5-15 [facility] Urine blood detectionOrdered By: HEALTH ASSESSMENT on 04-01-2023 RBC Ql (U) Negative Negative [facility] Urine clarityOrdered By: [facility] ASSESSMENT on 04-01-2023 Clarity (U) Clear Clear [facility] Urine color determinationOrd ered By: HEALTH ASSESSMENT on 04-01-2023 Color (U) Yellow Yellow [facility] Urine glucose detectionOrder ed By: HEALTH ASSESSMENT on 04-01-2023 Glucose Ql (U) Normal mg/dl Normal [facility] Urine leukocyte esterase det ection by dipstickOrdered By: HEALTH ASSESSMENT on 04-01-2023 Leukocyte esterase Test strip Ql (U) Negative Negative [facility] Urine pHOrdered By: HEALTH A SSESSMENT on 04-01-2023 pH (U) 5.0 [pH] 5.0 - 8.0 [facility] Urine specific gravity measu rementOrdered By: HEALTH ASSESSMENT on 04-01-2023 Specific gravity (U) [Rel density] 1.025 1.002-1.030 [facility] Urobilinogen Auto test strip Ql (U)Ordered By: HEALTH ASSESSMENT on 04-01-2023 Urobilinogen Ql (U) Normal mg/dl Normal [facility] Laboratory - Chemistry and C hemistry - challengeon 03-24-2022 Free T4 [Mass/Vol] 0.93 ng/dL 0.76-1.46 [facility] Work Phone: Magnesium [Mass/Vol] 1.7 mg/dL 1.6-2.6 [facility] Work Phone: No Panel Informationon 03-24 Thyroid Stimulating Hormone (TSH) 1.49 uIU/mL 0.358-3.74 [facility] Work Phone: Absolute lymphocyte counton 03-20-2022 Lymphocytes Auto (Unsp spec) [#/Vol] 2.49 10*3/uL 0.83-4.51 [facility] Work Phone: Absolute reticulocyte counto n 03-20-2022 Reticulocytes (Bld) [#/Vol] 0.00 10*3/uL 0-5 [facility] Work Phone: Basophil percentageon 2021 Basophil percentage 3.2 mg/dL 2.5-4.9 [facility] Work Phone: Bilirubin [Mass/Vol] 0.90 mg/dL 0.20-1.00 [facility] Work Phone: Comment on above: For patients on eltr ombopag therapy, use of Dimension [place] TBIL is not recommended. Chloride [Moles/Vol] 107 mmol/L 98-107 [facility] Work Phone: Cholesterol [Mass/Vol] 194 mg/dL <200 Cl [facility] Comment on above: <200 mg/dL Desirable 200-240 mg/dL Borderline >240 mg/dL High Risk Glucose [Mass/Vol] 125 mg/dL 74-106 [facility] Work Phone: Comment on above: Fasting Glucose resu lt from 100 to 125 mg/dL suggests IMPAIRED HOMEOSTASIS per A.D.A. criteria. Neutrophils (Bld) [#/Vol] 3.2 10*3/uL 2.0-7.7 [facility] Work Phone: Potassium [Moles/Vol] 4.0 mmol/L 3.5-5.1 [facility] Work Phone: Protein [Mass/Vol] 7.3 g/dL 6.4-8.2 [facility] Work Phone: Sodium [Moles/Vol] 139 mmol/L 136-145 [facility] Work Phone: Triglyceride [Mass/Vol] 284 mg/dL <199 [facility] Comment on above: The drugs N-Acetylcy steine and Metamizole may falsely depress this assay.Serum Triglycerides Reference Interval Normal <150 mg/dL Borderline high 150 - 199 mg/dL High 200 - 499 mg/dL Very High > or = 500 mg/dL WBC (Bld) [#/Vol] 6.4 10*3/uL 4.4-11.0 [facility] Work Phone: Bilirubin Test strip Ql (U)o n 03-20-2022 Bilirubin Ql (U) Negative Negative [facility] Work Phone: Blood erythrocytes count (nu mber/volume)on 03-20-2022 RBC (Bld) [#/Vol] 4.88 10*6/uL 4.2-5.4 [facility] Work Phone: Blood hemoglobin measurement (mass/volume)on 03-20-2022 Hemoglobin (Bld) [Mass/Vol] 14.5 g/dL 12.0-15.0 [facility] Work Phone: Blood platelet mean volumeon 03-20-2022 Platelet mean volume (Bld) [Entitic vol] 10.2 fL 6.2-12.0 [facility] Work Phone: Determination of erythrocyte mean corpuscular volume (MCV)on 03-20-2022 MCV (RBC) [Entitic vol] 88.1 fL 81-99 [facility] Work Phone: Direct bilirubinon Bilirubin.direct [Mass/Vol] 0.13 mg/dL 0.00-0.30 [facility] Work Phone: Hematocrit Auto (Bld) [Volum e fraction]on 03-20-2022 Hematocrit (Bld) [Volume fraction] 43.0 % 37-47 [facility] Work Phone: Ketones Test strip Ql (U)on 03-20-2022 Ketones Ql (U) Negative Negative [facility] Work Phone: LIPID PANEL (OUTSIDE)on 02-28 TC:HDL Ratio 4.80 [facility] VLDL Cholesterol 57 [facility] Laboratory - Chemistry and C hemistry - challengeon 03-20-2022 ALP [Catalytic activity/Vol] 67 U/L 45-117 [facility] Work Phone: ALT [Catalytic activity/Vol] 56 U/L 13-56 [facility] Work Phone: Cholesterol.total/Choles terol in HDL [Mass ratio] 4.80 {ratio} [facility] Work Phone: CO2 [Moles/Vol] 25.0 mmol/L 21.0-32.0 [facility] Work Phone: Globulin (S) [Mass/Vol] 3.6 g/dL 2.2-4.2 [facility] Work Phone: Urea nitrogen/Creatinine [Mass ratio] 20.5 mg/mg 10-20 [facility] Work Phone: Laboratory - Hematology and Cell countson 03-20-2022 Erythrocyte distribution width (RBC) [Entitic vol] 38.7 fL 35.1-43.9 [facility] Work Phone: Erythrocyte distribution width (RBC) [Ratio] 11.9 % 11.6-14.6 [facility] Work Phone: MCH (RBC) [Entitic mass] 29.7 pg 27.0-32.0 [facility] Work Phone: Nucleated RBC/100 WBC (Bld) [Ratio] 0 % 0-5 [facility] Work Phone: MCHC Auto (RBC) [Mass/Vol]on 03-20-2022 MCHC (RBC) [Mass/Vol] 33.7 g/dL 32-36 [facility] Work Phone: Nitrite Test strip Ql (U)on 03-20-2022 Nitrite Ql (U) Negative Negative [facility] Work Phone: No Panel Informationon 03-20 Estimated GFR (MDRD) Amer 95 mL/min >60 [facility] Work Phone: Comment on above: GFR Calc Estimated GFR (MDRD) Non-Af Amer 78 mL/min >60 [facility] Work Phone: Comment on above: Non- GFR Calc Platelets bldon 03-20-2022 Platelets (Bld) [#/Vol] 268 10*3/uL 150-450 [facility] Work Phone: Protein Test strip Ql (U)on 03-20-2022 Protein Ql (U) Negative Negative [facility] Work Phone: Segmented neutrophils/100 WB C Auto (Bld)on 03-20-2022 Segmented neutrophils/100 WBC (Bld) 49.3 % 47-70 [facility] Work Phone: Serum or plasma albumin lydia urement (mass/volume)on 03-20-2022 Albumin [Mass/Vol] 3.7 g/dL 3.2-5.0 [facility] Work Phone: Serum or plasma albumin/glob ulin mass ratioon 03-20-2022 Albumin/Globulin [Mass ratio] 1.0 {ratio} 0.9-2.4 [facility] Work Phone: Serum or plasma calcium lydia urement (mass/volume)on 03-20-2022 Calcium [Mass/Vol] 9.1 mg/dL 8.5-10.1 [facility] Work Phone: Serum or plasma cholesterol in HDL measurement (mass/volume)on 03-20-2022 Cholesterol in HDL [Mass/Vol] 40 mg/dL >40 [facility] Comment on above: The drugs N-Acetylcy steine and Metamizole may falsely depress this assay. Reference Range HDL <40 mg/dL Low HDL Cholesterol HDL >or= 60 mg/dL High HDL Cholesterol Serum or plasma cholesterol in VLDL measurement (mass/volume)on 03-20-2022 Cholesterol in VLDL [Mass/Vol] 57 mg/dL 5-40 [facility] Work Phone: Serum or plasma creatinine m easurement (mass/volume)on 03-20-2022 Creatinine [Mass/Vol] 0.83 mg/dL 0.55-1.02 [facility] Work Phone: Comment on above: The validity of the calculated GFR & GFRAA in patients over 70 years has not been determined. Clinical correlation is essential. Serum or plasma low density lipoprotein (LDL) cholesterol measurement (mass/volume)on 03-20-2022 Cholesterol in LDL [Mass/Vol] 97 mg/dL 0-130 [facility] Serum or plasma urea nitroge n measurement (mass/volume)on 03-20-2022 Urea nitrogen [Mass/Vol] 17 mg/dL 7-18 [facility] Work Phone: Serum or plasma uric acid me asurement (mass/volume)on 03-20-2022 Urate [Mass/Vol] 7.4 mg/dL 2.6-6.0 [facility] Work Phone: Comment on above: The drugs N-Acetylcy steine and Metamizole may falsely depress this assay. Thin prep Papanicolaou smear with manual screeningon 03-20-2022 Thin prep Papanicolaou smear with manual screening 34 U/L 15-37 [facility] Work Phone: Thin prep Papanicolaou smear with manual screening 7 5-15 [facility] Work Phone: Thin prep Papanicolaou smear with manual screening 153 U/L 84-246 [facility] Work Phone: Urine blood detectionon 02-28 RBC Ql (U) Negative Negative [facility] Work Phone: Urine clarityon 03-20-2022 Clarity (U) Clear Clear [facility] Work Phone: Urine color determinationon 03-20-2022 Color (U) Yellow Yellow [facility] Work Phone: Urine glucose detectionon Glucose Ql (U) Normal mg/dl Normal [facility] Work Phone: Urine leukocyte esterase det ection by dipstickon 03-20-2022 Leukocyte esterase Test strip Ql (U) Negative Negative [facility] Work Phone: Urine pHon 03-20-2022 pH (U) 6.0 [pH] 5.0 - 8.0 [facility] Work Phone: Urine specific gravity measu rementon 03-20-2022 Specific gravity (U) [Rel density] 1.020 1.002-1.030 [facility] Work Phone: Urobilinogen Auto test strip Ql (U)on 03-20-2022 Urobilinogen Ql (U) Normal mg/dl Normal [facility] Work Phone: Vital Signs Date Time Vital Sign Value Performing Clinician Nelly lauren 06-08-2025 13:25-0400 Body height 167.64 cm Silvana Ward NP-C Work Phone: [facility] 06-07-2025 09:30-0400 Body temperature 97.6 [degF] Silvana Ward NP-C Work Phone: 2(230)816-980258 [place] [address] 06-07-2025 09:30-0400 Diastolic blood pressure 71 mm[Hg] Silvana Haagen INSULATION INSPECTOR-C Work Phone: 5(419)359-172558 [place] [address] 06-07-2025 09:30-0400 Heart rate 59 /min Silvana Haagen INSULATION INSPECTOR-C Work Phone: 3(127)567-392158 [place] [address] 06-07-2025 09:30-0400 Respiratory rate 16 /min Silvana Haagen INSULATION INSPECTOR-C Work Phone: 5(469)113-807258 [place] [address] 06-07-2025 09:30-0400 SaO2% (BldA) [Mass fraction] 98 % Silvana Haagen INSULATION INSPECTOR-C Work Phone: 2(927)568-626358 [place] [address] 06-07-2025 09:30-0400 Systolic blood pressure 121 mm[Hg] Silvana Haagen INSULATION INSPECTOR-C Work Phone: 3(771)438-971858 [place] [address] 06-06-2025 15:15-0400 Inhaled oxygen flow rate 2 L/min Silvana Haagen INSULATION INSPECTOR-C Work Phone: 5(969)469-269958 [place] [address] 06-06-2025 09:48-0400 Body mass index (BMI) [Ratio] 38.2 kg/m2 Silvana Haagen INSULATION INSPECTOR-C Work Phone: 5(694)335-535758 [place] [address] 06-06-2025 09:48-0400 Body weight 107.5 kg Silvana Haagen INSULATION INSPECTOR-C Work Phone: 9(862)765-417258 [place] [address] 06-06-2025 08:29-0400 Body temperature 98.1 [degF] Silvana Haagen INSULATION INSPECTOR-C Work Phone: 3(030)077-801258 [place] [address] 06-06-2025 08:29-0400 Diastolic blood pressure 64 mm[Hg] Silvana Haagen INSULATION INSPECTOR-C Work Phone: 6(886)615-279458 [place] [address] 06-06-2025 08:29-0400 Heart rate 75 /min Silvana Haagen INSULATION INSPECTOR-C Work Phone: 4(531)036-252358 [place] [address] 06-06-2025 08:29-0400 Respiratory rate 16 /min Silvana Haagen INSULATION INSPECTOR-C Work Phone: 2(005)621-611048 [place] [address] 06-06-2025 08:29-0400 SaO2% (BldA) [Mass fraction] 94 % Silvana Haagen INSULATION INSPECTOR-C Work Phone: 4(634)501-511158 [place] [address] 06-06-2025 08:29-0400 Systolic blood pressure 116 mm[Hg] Silvana Haagen INSULATION INSPECTOR-C Work Phone: 2(790)332-160958 [place] [address] 06-06-2025 05:31-0400 Body height 167.64 cm Silvana Haagen INSULATION INSPECTOR-C Work Phone: 1(051)040-949158 [place] [address] 06-06-2025 05:31-0400 Body mass index (BMI) [Ratio] 38.7 kg/m2 Silvana Haagen INSULATION INSPECTOR-C Work Phone: 3(670)852-863158 [place] [address] 06-06-2025 05:31-0400 Body weight 108.8 kg Silvana Haagen INSULATION INSPECTOR-C Work Phone: 1(329)415-589758 [place] [address] 05-29-2025 16:15-0400 Body temperature 97.4 [degF] Silvana Haagen INSULATION INSPECTOR-C Work Phone: 5(458)341-005558 [place] [address] 05-29-2025 16:15-0400 Diastolic blood pressure 68 mm[Hg] Silvana Haagen INSULATION INSPECTOR-C Work Phone: 5(621)440-618458 [place] [address] 05-29-2025 16:15-0400 Heart rate 74 /min Silvana Haagen INSULATION INSPECTOR-C Work Phone: 0(190)844-892158 [place] [address] 05-29-2025 16:15-0400 Respiratory rate 16 /min Silvana Haagen INSULATION INSPECTOR-C Work Phone: 0(605)109-474858 [place] [address] 05-29-2025 16:15-0400 SaO2% (BldA) [Mass fraction] 94 % Silvana Haagen INSULATION INSPECTOR-C Work Phone: 4(315)871-034458 [place] [address] 05-29-2025 16:15-0400 Systolic blood pressure 110 mm[Hg] Silvana Haagen INSULATION INSPECTOR-C Work Phone: 4(079)373-040358 [place] [address] 05-29-2025 12:23-0400 Body height 167.64 cm Silvana Haagen INSULATION INSPECTOR-C Work Phone: 6(453)420-312248 [place] [address] 05-29-2025 12:23-0400 Body mass index (BMI) [Ratio] 37.8 kg/m2 Silvana Haagen INSULATION INSPECTOR-C Work Phone: 4(019)345-984758 [place] [address] 05-29-2025 12:23-0400 Body weight 106.14 kg Silvana Haagen INSULATION INSPECTOR-C Work Phone: 6(806)685-304658 [place] [address] 05-25-2025 14:03-0400 Body mass index (BMI) [Ratio] 39.9 kg/m2 Silvana Haagen INSULATION INSPECTOR-C Work Phone: 8(117)949-288258 [place] [address] 05-25-2025 14:03-0400 Body temperature 97.9 [degF] Silvana Haagen INSULATION INSPECTOR-C Work Phone: 1(494)045-156758 [place] [address] 05-25-2025 14:03-0400 Body weight 112.03 kg Silvana Haagen INSULATION INSPECTOR-C Work Phone: 5(976)055-420958 [place] [address] 05-25-2025 14:03-0400 Diastolic blood pressure 84 mm[Hg] Silvana Haagen INSULATION INSPECTOR-C Work Phone: 0(012)201-175058 [place] [address] 05-25-2025 14:03-0400 Heart rate 72 /min Silvana Haagen INSULATION INSPECTOR-C Work Phone: 7(441)645-401758 [place] [address] 05-25-2025 14:03-0400 Respiratory rate 18 /min Silvana Haagen INSULATION INSPECTOR-C Work Phone: 8(526)222-134658 [place] [address] 05-25-2025 14:03-0400 SaO2% (BldA) [Mass fraction] 99 % Silvana Haagen INSULATION INSPECTOR-C Work Phone: 2(227)658-929058 [place] [address] 05-25-2025 14:03-0400 Systolic blood pressure 120 mm[Hg] Silvana Haagen INSULATION INSPECTOR-C Work Phone: 2(506)810-458658 [place] [address] 04-05-2025 14:27-0400 Body temperature 96.8 [degF] Silvana Haagen INSULATION INSPECTOR-C Work Phone: 2(671)463-997058 [place] [address] 04-05-2025 14:27-0400 Diastolic blood pressure 72 mm[Hg] Silvana Ward INSULATION INSPECTOR-C Work Phone: [facility] 04-05-2025 14:27-0400 Heart rate 67 /min Silvana Ward INSULATION INSPECTOR-C Work Phone: [facility] 04-05-2025 14:27-0400 Respiratory rate 14 /min Silvana Underwoodagen INSULATION INSPECTOR-C Work Phone: 3(567)813-361958 [place] [address] 04-05-2025 14:27-0400 SaO2% (BldA) [Mass fraction] 94 % Silvana Ward INSULATION INSPECTOR-C Work Phone: 9(576)756-376358 [place] [address] 04-05-2025 14:27-0400 Systolic blood pressure 107 mm[Hg] Silvana Underwoodagen INSULATION INSPECTOR-C Work Phone: 1(071)962-904058 [place] [address] 04-05-2025 12:45-0400 Inhaled oxygen flow rate 2 L/min Silvana Underwoodagen INSULATION INSPECTOR-C Work Phone: 4(827)000-801658 [place] [address] 04-05-2025 09:20-0400 Body height 167.64 cm Silvana Underwoodagen INSULATION INSPECTOR-C Work Phone: 0(514)642-210158 [place] [address] 04-05-2025 09:20-0400 Body mass index (BMI) [Ratio] 39.1 kg/m2 Silvana Underwoodagen INSULATION INSPECTOR-C Work Phone: 7(846)640-030058 [place] [address] 04-05-2025 09:20-0400 Body weight 110 kg Silvana Underwoodagen INSULATION INSPECTOR-C Work Phone: 7(018)423-398158 [place] [address] 03-13-2025 08:18-0400 Body mass index (BMI) [Ratio] 38.01 kg/m2 Silvana Ward MOTORBOAT MECHANIC.SPOT CHECKER Work Phone: [facility] 03-13-2025 08:18-0400 Body weight 111.13 kg Silvana Ward MOTORBOAT MECHANIC.SPOT CHECKER Work Phone: [facility] 03-13-2025 08:18-0400 Diastolic blood pressure 82 mm[Hg] Silvana Ward MOTORBOAT MECHANIC.SPOT CHECKER Work Phone: [facility] 03-13-2025 08:18-0400 Heart rate 69 /min Silvana Ward MOTORBOAT MECHANIC.SPOT CHECKER Work Phone: [facility] 03-13-2025 08:18-0400 Respiratory rate 16 /min Silvana Ward MOTORBOAT MECHANIC.SPOT CHECKER Work Phone: [facility] 03-13-2025 08:18-0400 SaO2% (BldA) [Mass fraction] 97 % Silvana Ward MOTORBOAT MECHANIC.SPOT CHECKER Work Phone: [facility] 03-13-2025 08:18-0400 Systolic blood pressure 118 mm[Hg] Silvana Ward MOTORBOAT MECHANIC.SPOT CHECKER Work Phone: 9(197)172-390825 [place] [address] 12-22-2024 14:13-0400 Body height 167.64 cm Silvana Haagen INSULATION INSPECTOR-C Work Phone: 6(088)527-470548 [place] [address] 12-22-2024 14:13-0400 Body mass index (BMI) [Ratio] 39.5 kg/m2 Silvana Haagen INSULATION INSPECTOR-C Work Phone: 0(541)594-777548 [place] [address] 12-22-2024 14:13-0400 Body weight 111.13 kg Silvana Haagen INSULATION INSPECTOR-C Work Phone: 8(110)974-133758 [place] [address] 12-22-2024 14:13-0400 Diastolic blood pressure 86 mm[Hg] Silvana Haagen INSULATION INSPECTOR-C Work Phone: 0(657)409-110348 [place] [address] 12-22-2024 14:13-0400 Heart rate 82 /min Silvana Haagen INSULATION INSPECTOR-C Work Phone: 0(951)360-010748 [place] [address] 12-22-2024 14:13-0400 Respiratory rate 17 /min Silvana Haagen INSULATION INSPECTOR-C Work Phone: 6(119)015-360558 [place] [address] 12-22-2024 14:13-0400 SaO2% (BldA) [Mass fraction] 96 % Silvana Haagen INSULATION INSPECTOR-C Work Phone: 3(553)550-652648 [place] [address] 12-22-2024 14:13-0400 Systolic blood pressure 132 mm[Hg] Silvana Haagen INSULATION INSPECTOR-C Work Phone: 9(349)623-482958 [place] [address] 12-16-2024 12:39-0400 Body temperature 98.4 [degF] Silvana Haagen INSULATION INSPECTOR-C Work Phone: 6(434)797-327458 [place] [address] 12-16-2024 12:39-0400 Diastolic blood pressure 66 mm[Hg] Silvana Haagen INSULATION INSPECTOR-C Work Phone: 3(946)792-358758 [place] [address] 12-16-2024 12:39-0400 Heart rate 94 /min Silvana Haagen INSULATION INSPECTOR-C Work Phone: 8(309)046-737358 [place] [address] 12-16-2024 12:39-0400 Respiratory rate 17 /min Silvana Haagen INSULATION INSPECTOR-C Work Phone: 3(708)176-014058 [place] [address] 12-16-2024 12:39-0400 SaO2% (BldA) [Mass fraction] 95 % Silvana Haagen INSULATION INSPECTOR-C Work Phone: 8(079)639-371758 [place] [address] 12-16-2024 12:39-0400 Systolic blood pressure 110 mm[Hg] Silvana Haagen INSULATION INSPECTOR-C Work Phone: 1(428)487-176258 [place] [address] 10-26-2024 09:21-0500 Body height 167.64 cm Silvana Haagen INSULATION INSPECTOR-C Work Phone: 6(254)381-507858 [place] [address] 10-26-2024 09:21-0500 Body temperature 98.1 [degF] Silvana Haagen INSULATION INSPECTOR-C Work Phone: 0(876)807-701258 [place] [address] 10-26-2024 09:21-0500 Diastolic blood pressure 77 mm[Hg] Silvana Haagen INSULATION INSPECTOR-C Work Phone: 2(176)987-667558 [place] [address] 10-26-2024 09:21-0500 Heart rate 75 /min Silvana Haagen INSULATION INSPECTOR-C Work Phone: 0(098)[phone] [place] [address] 10-26-2024 09:21-0500 Respiratory rate 18 /min Silvana Haagen INSULATION INSPECTOR-C Work Phone: 4(407)[phone] [place] [address] 10-26-2024 09:21-0500 SaO2% (BldA) [Mass fraction] 96 % Silvana Haagen INSULATION INSPECTOR-C Work Phone: [facility] 10-26-2024 09:21-0500 Systolic blood pressure 122 mm[Hg] Silvana Ward INSULATION INSPECTOR-C Work Phone: [facility] 04-10-2024 08:08-0400 Body height 171 cm Silvana Ward MOTORBOAT MECHANIC.SPOT CHECKER Work Phone: [facility] 04-10-2024 08:08-0400 Body mass index (BMI) [Ratio] 38.63 kg/m2 Silvana Ward MOTORBOAT MECHANIC.SPOT CHECKER Work Phone: [facility] 04-10-2024 08:08-0400 Body weight 112.95 kg Silvana Ward MOTORBOAT MECHANIC.SPOT CHECKER Work Phone: [facility] 04-10-2024 08:08-0400 Diastolic blood pressure 72 mm[Hg] Silvana Ward MOTORBOAT MECHANIC.SPOT CHECKER Work Phone: [facility] 04-10-2024 08:08-0400 Heart rate 68 /min Silvana Ward MOTORBOAT MECHANIC.SPOT CHECKER Work Phone: [facility] 04-10-2024 08:08-0400 Respiratory rate 16 /min Silvana Ward MOTORBOAT MECHANIC.SPOT CHECKER Work Phone: [facility] 04-10-2024 08:08-0400 SaO2% (BldA) [Mass fraction] 95 % Silvana Ward MOTORBOAT MECHANIC.SPOT CHECKER Work Phone: [facility] 04-10-2024 08:08-0400 Systolic blood pressure 110 mm[Hg] Silvana Ward MOTORBOAT MECHANIC.SPOT CHECKER Work Phone: [facility] 12-23-2023 10:06-0400 Body height 170.18 cm INSULATION INSPECTOR-C Silvana Ward INSULATION INSPECTOR Work Phone: [facility] 12-23-2023 10:06-0400 Body weight 113.39 kg INSULATION INSPECTOR-C Silvana Ward INSULATION INSPECTOR Work Phone: [facility] 12-23-2023 09:42-0400 Body mass index (BMI) [Ratio] 39.1 kg/m2 INSULATION INSPECTOR-C Silvana Ward INSULATION INSPECTOR Work Phone: 5(814)886-590648 [place] [address] 12-22-2023 10:17-0400 Body weight 115.21 kg INSULATION INSPECTOR-C Silvana Ward INSULATION INSPECTOR Work Phone: 0(571)[phone] [place] [address] 12-22-2023 10:16-0400 Body mass index (BMI) [Ratio] 39.7 kg/m2 INSULATION INSPECTOR-C Silvana Ward INSULATION INSPECTOR Work Phone: 7(755)[phone] [place] [address] 12-03-2023 12:26-0400 Body temperature 98 [degF] INSULATION INSPECTOR-C Silvana Ward INSULATION INSPECTOR Work Phone: 9(357)[phone] [place] [address] 12-03-2023 12:26-0400 Diastolic blood pressure 69 mm[Hg] INSULATION INSPECTOR-C Silvana Ward INSULATION INSPECTOR Work Phone: 4(794)398-785058 [place] [address] 12-03-2023 12:26-0400 Heart rate 74 /min INSULATION INSPECTOR-C Silvana Ward INSULATION INSPECTOR Work Phone: 0(063)[phone] [place] [address] 12-03-2023 12:26-0400 Respiratory rate 16 /min INSULATION INSPECTOR-C Silvana Ward INSULATION INSPECTOR Work Phone: 3(881)139-884158 [place] [address] 12-03-2023 12:26-0400 SaO2% (BldA) [Mass fraction] 96 % INSULATION INSPECTOR-C Silvana Ward INSULATION INSPECTOR Work Phone: 6(583)780-161658 [place] [address] 12-03-2023 12:26-0400 Systolic blood pressure 118 mm[Hg] INSULATION INSPECTOR-C Silvana Ward INSULATION INSPECTOR Work Phone: 3(019)662-411058 [place] [address] 12-03-2023 07:11-0400 Body height 167.64 cm INSULATION INSPECTOR-C Silvana Ward INSULATION INSPECTOR Work Phone: 6(912)[phone] [place] [address] 12-03-2023 07:11-0400 Body mass index (BMI) [Ratio] 40.9 kg/m2 INSULATION INSPECTOR-C Silvana Ward INSULATION INSPECTOR Work Phone: 1(763)[phone] [place] [address] 12-03-2023 07:11-0400 Body weight 115 kg INSULATION INSPECTOR-C Silvana Ward INSULATION INSPECTOR Work Phone: 3(384)[phone] [place] [address] 09-07-2023 13:05-0500 Body temperature 98.2 [degF] INSULATION INSPECTOR-C Silvana Ward INSULATION INSPECTOR Work Phone: [facility] 09-07-2023 13:05-0500 Body weight 115.21 kg INSULATION INSPECTOR-C Silvana Ward INSULATION INSPECTOR Work Phone: [facility] 09-07-2023 13:05-0500 Diastolic blood pressure 80 mm[Hg] INSULATION INSPECTOR-C Silvana Ward INSULATION INSPECTOR Work Phone: [facility] 09-07-2023 13:05-0500 Heart rate 80 /min INSULATION INSPECTOR-C Silvana Ward INSULATION INSPECTOR Work Phone: [facility] 09-07-2023 13:05-0500 Respiratory rate 16 /min INSULATION INSPECTOR-C Silvana Ward INSULATION INSPECTOR Work Phone: 3(134)[phone] [place] [address] 09-07-2023 13:05-0500 SaO2% (BldA) [Mass fraction] 97 % INSULATION INSPECTOR-C Silvana Ward INSULATION INSPECTOR Work Phone: [facility] 09-07-2023 13:05-0500 Systolic blood pressure 128 mm[Hg] INSULATION INSPECTOR-C Silvana Ward INSULATION INSPECTOR Work Phone: [facility] 08-02-2023 16:25-0500 Diastolic blood pressure 90 mm[Hg] Silvana Haagen MOTORBOAT MECHANIC.SPOT CHECKER Work Phone: [facility] 08-02-2023 16:25-0500 Heart rate 91 /min Silvana Haagen MOTORBOAT MECHANIC.SPOT CHECKER Work Phone: [facility] 08-02-2023 16:25-0500 Respiratory rate 16 /min Silvana Haagen MOTORBOAT MECHANIC.SPOT CHECKER Work Phone: [facility] 08-02-2023 16:25-0500 SaO2% (BldA) [Mass fraction] 96 % Silvana Haagen MOTORBOAT MECHANIC.SPOT CHECKER Work Phone: [facility] 08-02-2023 16:25-0500 Systolic blood pressure 130 mm[Hg] Silvana Haagen MOTORBOAT MECHANIC.SPOT CHECKER Work Phone: [facility] 04-06-2023 08:02-0400 Body height 169 cm Silvana Haagen MOTORBOAT MECHANIC.SPOT CHECKER Work Phone: [facility] 04-06-2023 08:02-0400 Body weight 111.13 kg Silvana Ward MOTORBOAT MECHANIC.SPOT CHECKER Work Phone: [facility] 04-06-2023 08:02-0400 Diastolic blood pressure 88 mm[Hg] Silvana Underwoodagen MOTORBOAT MECHANIC.SPOT CHECKER Work Phone: [facility] 04-06-2023 08:02-0400 Heart rate 64 /min Silvana Underwoodagen MOTORBOAT MECHANIC.SPOT CHECKER Work Phone: [facility] 04-06-2023 08:02-0400 Respiratory rate 16 /min Silvana Ward MOTORBOAT MECHANIC.SPOT CHECKER Work Phone: [facility] 04-06-2023 08:02-0400 SaO2% (BldA) [Mass fraction] 98 % Silvana Ward MOTORBOAT MECHANIC.SPOT CHECKER Work Phone: [facility] 04-06-2023 08:02-0400 Systolic blood pressure 122 mm[Hg] Silvana Ward MOTORBOAT MECHANIC.SPOT CHECKER Work Phone: [facility] 07-30-2022 14:19-0500 Body height 170.[address] Jong Weems Work Phone: [facility] Work Phone: 07-30-2022 14:19-0500 Body mass index (BMI) [Ratio] 38.7 kg/m2 Dr. Jong Weems Work Phone: [facility] Work Phone: 07-30-2022 14:19-0500 Body weight 112.[address] Jong Weems Work Phone: [facility] Work Phone: 07-30-2022 14:19-0500 Diastolic blood pressure 78 mm[Hg] Dr. Jong Weems Work Phone: [facility] Work Phone: 07-30-2022 14:19-0500 Heart rate 68 /min Dr. Jong Weems Work Phone: [facility] Work Phone: 07-30-2022 14:19-0500 Respiratory rate 16 /min Dr. Jong Weems Work Phone: [facility] Work Phone: 07-30-2022 14:19-0500 Systolic blood pressure 120 mm[Hg] Dr. Jong Weems Work Phone: [facility] Work Phone: 03-24-2022 13:01-0400 Body height 170 cm Silvanadaquan Ward MOTORBOAT MECHANIC.SPOT CHECKER Work Phone: [facility] 03-24-2022 13:01-0400 Body weight 111.58 kg Silvana Ward MOTORBOAT MECHANIC.SPOT CHECKER Work Phone: [facility] 03-24-2022 13:01-0400 Diastolic blood pressure 88 mm[Hg] Silvana Ward MOTORBOAT MECHANIC.SPOT CHECKER Work Phone: [facility] 03-24-2022 13:01-0400 Heart rate 70 /min Silvana Haagen MOTORBOAT MECHANIC.SPOT CHECKER Work Phone: [facility] 03-24-2022 13:01-0400 Respiratory rate 18 /min Silvana Ward MOTORBOAT MECHANIC.SPOT CHECKER Work Phone: [facility] 03-24-2022 13:01-0400 SaO2% (BldA) [Mass fraction] 96 % Silvana Ward MOTORBOAT MECHANIC.SPOT CHECKER Work Phone: [facility] 03-24-2022 13:01-0400 Systolic blood pressure 124 mm[Hg] Silvana Ward MOTORBOAT MECHANIC.SPOT CHECKER Work Phone: [facility] Encounters Encounter Date Encounter Type Care Provider Facility Start: 07-11-2025 ambulatory Silvana Ward NP Facil ity:[facility] Start: 07-03-2025 End: 07-03-2025 ambulatory Silvana Ward INSULATION INSPECTOR Facility[place] Start: 06-20-2025 End: 06-20-[address] Riley Swann MD -[facility] Work Phone: Start: 06-20-2025 End: 06-20-2025 ambulatory Silvana Ward INSULATION INSPECTOR Facility[place] Start: 06-13-2025 End: 06-13-2025 Patient encounter procedure Sheila Serra PA-C -[facility] Work Phone: Start: 06-13-2025 End: 06-13-2025 ambulatory Silvana Ward INSULATION INSPECTOR-C Work Phone: -[facility] Start: 06-08-2025 End: 06-08-[address] Madina Foss MD -[facility] Work Phone: Start: 06-08-2025 End: 06-08-2025 ambulatory Silvana Ward INSULATION INSPECTOR-C Work Phone: -[facility] Start: 06-07-2025 Non-patient / Non-visit Dr. Ashish Foss MD -[facility] Start: 06-06-2025 Non-patient / Non-visit Dr. Chelsie HILLIARD -[facility] Start: 06-06-2025 End: 06-07-2025 ambulatory Riley Swann Facility:[facility] Start: 06-06-2025 End: 06-07-2025 Evaluation and management of inpatient Dr. Riley Swann MD -[facility] Work Phone: Start: 06-06-2025 End: 06-07-2025 observation encounter Silvana Ward INSULATION INSPECTOR-C Work Phone: -[facility] Start: 06-05-2025 Registered Recurring Harriet BERGER -Physical Therapy Work Phone: Start: 06-04-2025 End: 06-04-[address] Riley Swann MD -[facility] Work Phone: Start: 06-04-2025 End: 06-04-2025 ambulatory Silvana Ward INSULATION INSPECTOR-C Work Phone: -[facility] Start: 06-01-2025 Registered Recurring Harriet BERGER -Physical Therapy Work Phone: Start: 06-01-2025 End: 06-01-2025 Patient encounter procedure Silvana Ward INSULATION INSPECTOR-C -Outpatient Breast Imaging Work Phone: Start: 06-01-2025 End: 06-01-2025 ambulatory Silvana Ward INSULATION INSPECTOR Facility:[facility] Start: 05-29-2025 ambulatory Riley Swann Facility [place] Start: 05-29-2025 Non-patient / Non-visit Dr. Chlesie HILLIARD -[facility] Start: 05-29-2025 End: 05-29-2025 Admission to same day surgery center Dr. Riley Swann MD -[facility] Start: 05-29-2025 End: 05-29-2025 ambulatory Silvana Ward INSULATION INSPECTOR-C Work Phone: -[facility] Start: 05-28-2025 Registered Recurring Harriet BERGER -Physical Therapy Work Phone: Start: 05-25-2025 End: 05-25-[address] Riley Swann MD -[facility] Work Phone: Start: 05-25-2025 End: 05-25-2025 ambulatory Silvana Ward INSULATION INSPECTOR-C Work Phone: -[facility] Start: 04-13-2025 End: 04-16-2025 Telephone encounter Silvana Ward APRN.SPOT CHECKER Work Phone: [facility] [place] Comment on above: Insurance Authorizat ion Start: 04-10-2025 End: 04-10-2025 ambulatory Silvana Ward MOTORBOAT MECHANIC.SPOT CHECKER Work Phone: [facility] [place] Comment on above: The shot Start: 04-05-2025 End: 04-05-2025 Admission to same day surgery center Dr. Jacinto Smith DO -[facility] Start: 04-05-2025 End: 04-05-2025 ambulatory Silvana Ward INSULATION INSPECTOR-C Work Phone: -S[facility] Day Care Start: 03-19-2025 Encounter for other preprocedural examination Jacinto Smith [facility] Start: 03-13-2025 End: 03-13-2025 Patient encounter procedure Silvana Ward APRN.CNP Work Phone: [facility] [place] Comment on above: Routine physical exa mination (Primary Dx); Type 2 diabetes mellitus without complication, without long-term current use of insulin (HCC); Adjustment reaction with anxiety and depression; Bee sting, accidental or unintentional, sequela; Anal fissure; Other tear of medial meniscus, current injury, right knee, subsequent encounter; Class 2 severe obesity due to excess calories with serious comorbidity and body mass index (BMI) of 38.0 to 38.9 in adult (HCC) Start: 03-13-2025 End: 03-13-2025 ambulatory SILVANA WARD Facility:[facility] Start: 03-13-2025 End: 03-13-2025 Physical examination Silvana Ward APRN.SPOT CHECKER Work Phone: [facility] Start: 03-09-2025 Registered Referred HEALTH RIS K ASSESSMENT -Employee Health Start: 03-09-2025 ambulatory Health Risk Assessment Facility:[facility] Start: 03-08-2025 End: 03-08-2025 ambulatory Charles Sherwood Facility:[facility] Start: 03-08-2025 End: 03-08-2025 Non-patient / Non-visit Dr. Charles Sherwood MD -[facility] Work Phone: Start: 03-08-2025 End: 03-08-2025 ambulatory Silvana Sylvia INSULATION INSPECTOR-C Work Phone: -Pulmonary Services/Neurology Start: 03-08-2025 End: 03-08-[address] Jacinto Smith DO -Pulmonary Services/Neurology Work Phone: Start: 03-08-2025 End: 03-08-2025 ambulatory Jacinto Smith Facility:[facility] Start: 02-27-2025 Non-patient / Non-visit Dr. Theo Duggan MD -[facility] Work Phone: Start: 01-30-2025 ambulatory Gus Wen Facility :[facility] Start: 12-22-2024 End: 12-22-[address] Riley Swann MD -[facility] Work Phone: Start: 12-22-2024 End: 12-22-2024 ambulatory Riley Swann Facility:[facility] Start: 12-20-2024 Encounter for genera l adult medical examination without abnormal findings Hanna Radha [facility] Start: 12-18-2024 End: 12-18-2024 ambulatory Silvana Ward INSULATION INSPECTOR-C Work Phone: [facility] Work Phone: Start: 12-18-2024 End: 12-18-2024 Patient encounter procedure Hannachristopher Huen INSULATION INSPECTOR-C -Laboratory, Specimen Work Phone: Start: 12-18-2024 End: 12-18-2024 ambulatory Hanna [place] Facility:[facility] Start: 12-16-2024 End: 12-16-2024 Patient encounter procedure Hanna Garcia INSULATION INSPECTOR-C -[facility] Work Phone: Start: 12-16-2024 End: 12-16-2024 ambulatory Hanna Radha Facility:[facility] Start: 11-26-2024 End: 11-26-2024 Patient encounter procedure Keenan Tellez INSULATION INSPECTOR-C -[facility] Work Phone: Start: 11-26-2024 End: 11-26-2024 ambulatory Keenan Tellez INSULATION INSPECTOR Facility:[facility] Start: 11-09-2024 End: 11-09-2024 Patient encounter procedure Gus Wen DO -[facility] Work Phone: Start: 11-09-2024 End: 11-09-2024 ambulatory Gus Wen Facility:[facility] Start: 11-04-2024 End: 11-06-2024 ambulatory Silvana Ward MOTORBOAT MECHANIC.SPOT CHECKER Work Phone: [facility] [place] Comment on above: 100 zoloft Start: 11-03-2024 End: 11-06-2024 Refill Jong Weems MD Work Phone: [facility] Comment on above: Refill Request Start: 10-31-2024 End: 10-31-2024 ambulatory Odessa Chu APRN.SPOT CHECKER Work Phone: [facility] Comment on above: 100 mg Zoloft Start: 10-31-2024 End: 10-31-[address] Marty Gil MD -Occupational Therapy Work Phone: Start: 10-26-2024 End: 10-26-2024 Patient encounter procedure Desiree Lau INSULATION INSPECTOR-C -[facility] Work Phone: Start: 10-26-2024 End: 10-26-2024 ambulatory Desiree Lau NP [place] Start: 10-19-2024 End: 10-19-[address] Jacinto Smith DO -[facility] Work Phone: Start: 10-19-2024 End: 10-19-2024 ambulatory Jacinto Smith Facility:[facility] Start: 07-26-2024 End: 07-26-2024 ambulatory Gus Wen Facility:[facility] Start: 07-18-2024 End: 07-18-2024 ambulatory Desiree Lau NP Facility:[facility] Start: 07-11-2024 End: 07-13-2024 Refill Silvana Ward APRN.SPOT CHECKER Work Phone: [facility] Comment on above: Refill Request Start: 05-03-2024 End: 05-04-2024 Refill Silvana Ward APRN.SPOT CHECKER Work Phone: [facility] Comment on above: Refill Request Start: 04-10-2024 End: 04-10-2024 Patient encounter procedure Silvana Ward APRN.SPOT CHECKER Work Phone: [facility] Comment on above: Wellness examination (Primary Dx); Prediabetes; Fatigue, unspecified type; Mass of left breast, unspecified quadrant; Adjustment reaction with anxiety and depression Start: 04-10-2024 End: 04-10-2024 Patient encounter status Silvana Sylvia MOTORBOAT MECHANIC.SPOT CHECKER Work Phone: [facility] Start: 04-05-2024 Chart abstracting Leander Blevins [facility] Start: 01-26-2024 Telephone encounter Silvana sheridan MOTORBOAT MECHANIC.SPOT CHECKER Work Phone: [facility] Start: 12-27-2023 Non-patient / Non-visit INSULATION INSPECTOR-C Portia Ward INSULATION INSPECTOR Work Phone: [facility] Start: 12-27-2023 End: 12-27-2023 ambulatory INSULATION INSPECTOR-C Silvana Ward INSULATION INSPECTOR Work Phone: [facility] Work Phone: Start: 12-27-2023 End: 12-27-2023 Patient encounter procedure INSULATION INSPECTOR-C Silvana Ward INSULATION INSPECTOR [facility] Work [facility] Start: 12-23-2023 Non-patient / Non-visit INSULATION INSPECTOR-C Portia Ward INSULATION INSPECTOR Work Phone: [facility] Start: 12-23-2023 End: 12-23-2023 Admission to same day surgery center INSULATION INSPECTOR-C Silvana Ward INSULATION INSPECTOR Work Phone: [facility]-Data Entry Processor/Special Procedures Work Phone: Start: 12-23-2023 End: 12-23-2023 ambulatory INSULATION INSPECTOR-C Silvana Ward INSULATION INSPECTOR Work Phone: [facility] Work Phone: Start: 12-03-2023 End: 12-03-2023 Admission to same day surgery center INSULATION INSPECTOR-C Silvana Ward INSULATION INSPECTOR Work Phone: [facility]-Surgical Day Care Start: 12-03-2023 End: 12-03-2023 ambulatory INSULATION INSPECTOR-C Silvana Ward INSULATION INSPECTOR Work Phone: [facility] Work Phone: Start: 11-25-2023 End: 11-25-2023 ambulatory INSULATION INSPECTOR-C Silvana Underwoodfatimah INSULATION INSPECTOR Work Phone: [facility] Work Phone: Start: 11-25-2023 End: 11-25-2023 Patient encounter procedure INSULATION INSPECTOR-C Silvana Underwoodfatimah INSULATION INSPECTOR Work Phone: [facility]-Laboratory Work Phone: Start: 11-16-2023 Registered Recurring INSULATION INSPECTOR-C Tiara Underwoodfatimah INSULATION INSPECTOR Work Phone: [facility]-Occupational Therapy Work Phone: Start: 11-05-2023 End: 11-05-2023 ambulatory INSULATION INSPECTOR-C Silvana Underwoodfatimah INSULATION INSPECTOR Work Phone: [facility] Work Phone: Start: 11-05-2023 End: 11-05-2023 Patient encounter procedure INSULATION INSPECTOR-C Silvana Hafatimah INSULATION INSPECTOR Work Phone: [facility] Work Phone: Start: 11-03-2023 Registered Recurring INSULATION INSPECTOR-C Jennayudelka Underwoodfatimah INSULATION INSPECTOR Work Phone: [facility]-Occupational Therapy Work Phone: Start: 09-27-2023 Registered Recurring INSULATION INSPECTOR-C Tiara Underwoodfatimah INSULATION INSPECTOR Work Phone: [facility]-Occupational Therapy Work Phone: Start: 09-24-2023 End: 09-24-2023 ambulatory INSULATION INSPECTOR-C Silvana Underwoodfatimah INSULATION INSPECTOR Work Phone: [facility] Work Phone: Start: 09-24-2023 End: 09-24-2023 Patient encounter procedure INSULATION INSPECTOR-C Silvana Underwoodfatimah INSULATION INSPECTOR [facility] Start: 09-17-2023 Non-patient / Non-visit INSULATION INSPECTOR-C C eddy Ward INSULATION INSPECTOR Work Phone: [facility] Start: 09-17-2023 End: 09-17-2023 Patient encounter procedure INSULATION INSPECTOR-Portia Ward INSULATION INSPECTOR Work Phone: [facility]-Cardiovascular Services Work Phone: Start: 09-15-2023 End: 09-15-2023 Patient encounter procedure INSULATION INSPECTOR-Portia Ward INSULATION INSPECTOR Work Phone: [facility] Work Phone: Start: 09-07-2023 End: 09-07-2023 Patient encounter procedure INSULATION INSPECTOR-Portia Ward INSULATION INSPECTOR Work Phone: [facility] Work Phone: Start: 08-06-2023 End: 08-06-[address] Jong Weems Work Phone: [facility] Work Phone: Start: 08-06-2023 End: 08-06-[address] Jong Weems Work Phone: [facility] Work Phone: Start: 08-03-2023 Telephone encounter Silvana sheridan APRN.SPOT CHECKER Work Phone: [facility] Comment on above: Results Start: 08-03-2023 End: 08-03-[address] Jong Weems Work Phone: [facility] Work Phone: Start: 08-03-2023 End: 08-03-[address] Jong Weems Work Phone: [facility]-Laboratory Work Phone: Start: 08-02-2023 End: 08-02-2023 Office outpatient visit 25 minutes Silvana Ward APRN.SPOT CHECKER Work Phone: [facility] Comment on above: Gross hematuria (Randi lyudmila Dx) Start: 06-22-2023 Telephone encounter Silvana sheridan APRN.SPOT CHECKER Work Phone: [facility] Comment on above: Results Start: 06-22-2023 End: 06-22-[address] Jong Weems Work Phone: [facility]-Outpatient Pavilion Ultrasound Work Phone: Start: 05-19-2023 Telephone encounter Hari Moss PA-C Work Phone: [facility] Comment on above: 2022 Healthy Living program form Start: 05-06-2023 Telephone encounter Hari Moss PA-C Work Phone: [facility] [place] Comment on above: Appointment Start: 04-28-2023 End: 04-28-[address] Jong Weems Work Phone: [facility] Work Phone: Start: 04-06-2023 Chart abstracting Hari karimi PA-C Work Phone: [facility] Start: 04-06-2023 End: 04-06-2023 ambulatory [facility] Work Phone: Start: 04-06-2023 End: 04-06-2023 Patient encounter procedure Silvana Ward APRN.SPOT CHECKER Work Phone: [facility] Comment on above: Wellness examination (Primary Dx); Adjustment reaction with anxiety and depression; Skin cancer screening; Lateral epicondylitis of both elbows; Elevated liver enzymes; Elevated fasting glucose; Visit for screening mammogram Start: 04-06-2023 End: 04-06-2023 Patient encounter status Silvana Ward APRN.SPOT CHECKER Work Phone: [facility] Work Phone: Start: 04-01-2023 Registered Referred [facility]-Employee Health Start: 08-26-2022 Non-patient / Non-visit Dr. Josi Weems Work Phone: [facility] Start: 08-26-2022 End: 08-26-[address] Jong Weems Work Phone: [facility] Work Phone: Start: 08-26-2022 End: 08-26-2022 Patient encounter procedure Dr. Jong Weems Work Phone: [facility] Start: 07-30-2022 End: 07-30-[address] Jong Weems Work Phone: [facility] Start: 07-20-2022 Non-patient / Non-visit Dr. Josi Weems Work Phone: [facility] Start: 06-19-2022 End: 06-19-[address] Jong Weems Work Phone: [facility] Work Phone: Start: 06-19-2022 End: 06-19-[address] Jong Weems Work Phone: [facility]-Outpatient Breast Imaging Start: 05-29-2022 Telephone encounter Hari Moss PA-C Work Phone: [facility] Comment on above: Orders Start: 05-21-2022 ambulatory Hari BERGER-C Work Phone: [facility] Comment on above: Mammogram Start: 04-23-2022 Telephone encounter Hari Moss PA-C Work Phone: [facility] Comment on above: Results (Echo ) Start: 04-20-2022 Non-patient / Non-visit Dr. Josi Weems Work Phone: [facility] Start: 04-20-2022 End: 04-20-[address] Jong Weems Work Phone: [facility] Work Phone: Start: 04-20-2022 End: 04-20-[address] Jong Weems Work Phone: [facility] Start: 04-10-2022 End: 04-10-2022 [facility] Start: 04-10-2022 Non-patient / Non-visit Dr. Josi Weems Work Phone: [facility] Start: 04-07-2022 [facility] Start: 04-07-2022 Non-patient / Non-visit Dr. Josi Weems Work Phone: [facility] Start: 03-25-2022 Telephone encounter Hari BERGER-C Work Phone: [facility] Comment on above: Results Start: 03-24-2022 End: 03-24-2022 Patient encounter procedure Silvana Ward APRN.SPOT CHECKER Work Phone: [facility] Comment on above: Wellness examination (Primary Dx); Palpitations; Hypertension, essential; Anxiety with depression Start: 03-24-2022 End: 03-24-2022 Patient encounter status Silvana Ward APRN.SPOT CHECKER Work Phone: [facility] Start: 03-20-2022 Chart abstracting Hari karimi PA-C Work Phone: [facility] Start: 03-20-2022 Registered Referred [facility] Start: 03-18-2022 ambulatory Hari marquez PA-C Work Phone: [facility] [place] Procedures Date Procedure Procedure Detail Performing Clinician Start: 06-06-2025 Incision and drainag e of perirectal abscess Silvana Ward INSULATION INSPECTOR-C Work Phone: Start: 06-06-2025 Estimated creatinine clearance Silvana Ward INSULATION INSPECTOR-C Work Phone: Start: 06-06-2025 CT of pelvis with contrast Silvana Ward INSULATION INSPECTOR-C Work Phone: Start: 06-01-2025 Screening mammography C hredwin Ward INSULATION INSPECTOR-C Work Phone: Start: 05-29-2025 Anal fissurectomy David Ward INSULATION INSPECTOR-C Work Phone: Start: 04-05-2025 Arthroscopy of knee Jenna Ward INSULATION INSPECTOR-C Work Phone: Start: 03-09-2025 Serum inorganic phos phate measurement Silvana Ward INSULATION INSPECTOR-C Work Phone: Start: 03-09-2025 Urnls dip stick/tabl et reagent auto microscopy Silvana Ward INSULATION INSPECTOR-C Work Phone: Start: 10-19-2024 MRI of joint of lowe r extremity Silvana Underwoodfatimah INSULATION INSPECTOR-C Work Phone: Start: 04-04-2024 CBCDIF (EXTERNAL) [facility] P rovider Start: 04-04-2024 Comprehensive metabo lic 2000 panel - Serum or Plasma [facility] Provider Start: 04-04-2024 Lipid panel [facility] Provid er Start: 04-04-2024 Lipid 1996 panel - S isatu or Plasma Leander Swanson PRESCHOOL DISABILITY TEACHER Start: 12-03-2023 Fluoroscopic guidance N P-C Silvana Ward INSULATION INSPECTOR Work Phone: Start: 12-03-2023 Cystoscopy and retro grade pyelography INSULATION INSPECTOR-C Silvana Hafatimah INSULATION INSPECTOR Work Phone: Start: 11-25-2023 Urine culture INSULATION INSPECTOR-C Tiara Underwoodfatimah INSULATION INSPECTOR Work Phone: Start: 11-05-2023 CT of abdomen and pe lvis without contrast INSULATION INSPECTOR-C Silvana Underwoodfatimah INSULATION INSPECTOR Work Phone: Start: 09-24-2023 Urine culture INSULATION INSPECTOR-C Jennai antonio Ward INSULATION INSPECTOR Work Phone: Start: 08-06-2023 Computed tomography of abdomen and pelvis with contrast Dr. Jong Weems Work Phone: Start: 08-03-[address] Scott Weems Work Phone: Start: 08-02-2023 Urnls dip stick/tabl et rgnt auto w/o microscopy Silvana Ward MOTORBOAT MECHANIC.SPOT CHECKER Work Phone: Start: 06-22-2023 Screening mammography Elvis Weems Work Phone: Start: 06-22-[address] Jong Weems Work Phone: Start: 04-06-2023 Hemoglobin A1c/Hemoglobin.total in Blood [facility] Provider Start: 06-19-2022 End: 06-19-[address] Jong Weems Work Phone: Start: 03-20-2022 Lipid panel [facility] Provid er Start: 03-20-2022 Lipid 1996 panel - S isatu or Plasma NA Moss PA-C Work Phone: Start: 06-12-2020 Mammography NA Moss PA-C Work Phone: Start: 07-29-2016 Colonoscopy NA Moss PA-C Work Phone: Plan of Treatment Date Care Activity Detail Author Start: 09-10-2030 Urine microalbumin profile DTa P,Tdap,Td Vaccine (4 - Td or Tdap) [facility] Start: 04-04-2029 Lipid panel Lipid Screening [facility] Start: 04-04-2027 Diabetes Screening Diabetes Screenin g [facility] Start: 03-20-2027 Lipid 1996 panel - S isatu or Plasma Lipid Screening [facility] Start: 03-20-2027 Lipid panel Lipid Screening [facility] Start: 03-20-2027 LIPID SCREEN LIPID SCREEN [facility] Start: 07-29-2026 Colonoscopy COLONOSCOPY [facility] Start: 07-29-2026 COLORECTAL CANCER SCREENING COLORECTAL CANCER SCREENING [facility] Start: 07-29-2026 Screening for malign ant neoplasm of colon [facility] Start: 04-06-2026 DIABETES SCREEN DIABETES SCREEN [facility] Start: 04-06-2026 Diabetes Screening Diabetes Screenin g [facility] Start: 03-13-2026 Annual PCP Team Cement Storage Worker nicky Disease Visit Annual PCP Team Chronic Disease Visit [facility] Start: 03-13-2026 Diabetic foot examination Diabetic F oot Exam [facility] Start: 07-11-2025 Registered Recurring Registered Recu rring -Physical Therapy Work Phone: Start: 07-03-2025 End: 07-03-2025 Patient encounter procedure Status post incision and drainage -[facility] Work Phone: Start: 06-26-2025 Registered Recurring Registered Recu rring -Physical Therapy Work Phone: Start: 06-22-2025 Registered Recurring Registered Recu rring -Physical Therapy Work Phone: Start: 06-20-2025 End: 06-20-2025 Patient encounter procedure Status post incision and drainage -[facility] Work Phone: Start: 06-13-2025 End: 03-13-2026 Hemoglobin A1c in Blood HEMOGLOBIN A1C Lab Routine Type 2 diabetes mellitus without complication, without long-term current use of insulin (HCC) Expected: 06/13/2025, Expires: 03/13/2026 [facility] Comment on above: Expected: 06/13/2025 , Expires: 03/13/2026 Start: 06-13-2025 End: 06-13-2025 Patient encounter procedure Status post incision and drainage -[facility] Work Phone: Start: 06-07-2025 Patient discharge [facility] Start: 06-06-2025 Anesthesia anorectal procedure ANESTH ANORECTAL SURGERY [facility] Start: 06-06-2025 Incision and drainag e of perirectal abscess INCISION OF RECTAL ABSCESS [facility] Start: 06-06-2025 Following clinical p athway protocol [facility] Start: 06-06-2025 Ambulation without limitation [facility] Start: 06-06-2025 Assessment of risk o f venous thromboembolism [facility] Start: 06-06-2025 Insertion of cathete r into peripheral vein [facility] Start: 06-06-2025 Providing care accor ding to standard [facility] Start: 06-06-2025 [facility] Start: 06-06-[address] [facility] Start: 06-06-2025 Admission procedure [facility] Start: 06-06-2025 Hospital admission, emergency, from emergency room, medical nature [facility] Start: 05-29-2025 Patient discharge [facility] Start: 05-29-2025 Anesthesia anorectal procedure ANESTH ANORECTAL SURGERY [facility] Start: 05-29-2025 Injection aa&/strd pudendal nerve NJX AA&/STRD PUDENDAL NERVE [facility] Start: 05-29-2025 Rectal examination SURG DX EXAM ANOR ECTAL [facility] Start: 05-29-2025 Sphincterotomy anal division sphincter spx INCISION OF ANAL SPHINCTER [facility] Start: 05-29-2025 Non-patient / Non-visit Non-patient / Non-visit [facility] Start: 05-29-2025 Anal fissurectomy Fissurectomy (Not Applicable) [facility] Start: 05-29-2025 End: 05-29-2025 Admission to same day surgery center Anal fissure [facility] Start: 05-28-2025 Registered Recurring Registered Recu rring -Physical Therapy Work Phone: Start: 04-30-2025 Influenza vaccination Influenza Vacc ine (#1) [facility] Start: 04-10-2025 Annual PCP Team Cement Storage Worker nicky Disease Visit Annual PCP Team Chronic Disease Visit [facility] Start: 04-10-2025 BP Controlled (<130/80) BP Controlle d (<130/80) [facility] Start: 04-05-2025 Anes open/surg arthroscopic proc knee joint nos ANESTH KNEE JOINT SURGERY [facility] Start: 04-05-2025 Arthrs kne surg w/meniscectomy med/lat w/shvg KNEE ARTHROSCOPY/SURGERY [facility] Start: 04-05-2025 Application of ice c ollar, cap or bag [facility] Start: 04-05-2025 Catheterization of vein [facility] Start: 04-05-2025 Following clinical p athway protocol [facility] Start: 04-05-2025 Patient discharge [facility] Start: 04-05-2025 Procedure discontinued [facility] Start: 04-05-2025 Taking patient vital signs [facility] Start: 04-05-2025 Vital signs measurements [facility] Start: 04-05-2025 [facility] Start: 04-05-[address] [facility] Start: 2025 Shingrix Vaccine (1 of 2) Armando grix Vaccine (1 of 2) [facility] Start: 03-13-2025 End: 03-13-2026 Microalbumin/Creatinine [Mass Ratio] in Urine ALBUMIN/CREATININE RATIO, URINE Lab Routine Type 2 diabetes mellitus without complication, without long-term current use of insulin (HCC) Expected: 03/13/2025, Expires: 03/13/2026 [facility] Work Phone: Comment on above: Expected: 03/13/2025 , Expires: 03/13/2026 Start: 01-28-2025 Urine microalbumin profile [facility] Start: 08-02-2024 Annual PCP Team Cement Storage Worker 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 Disease Visit Annual PCP Team Chronic Disease Visit [facility] Start: 06-22-2024 Mammography Mammogram Screening [facility] Start: 06-22-2024 Screening for malign ant neoplasm of breast Mammogram Screening [facility] Start: 04-30-2024 Covid-19 Vaccine ( season) Covid-19 Vaccine ( season) [facility] Start: 04-30-2024 Covid-19 Vaccine ( season) Covid-19 Vaccine () [facility] Start: 04-30-2024 Influenza vaccination Influenza Vacc ine (#1) [facility] Start: 04-10-2024 End: 07-10-2024 Hemoglobin A1c in Blood HEMOGLOBIN A1C Lab Routine Prediabetes Expected: 04/10/2024, Expires: 07/10/2024 [facility] Work Phone: Comment on above: Expected: 04/10/2024 , Expires: 07/10/2024 Start: 04-10-2024 End: 07-10-2024 Thyrotropin [Units/volume] in Serum or Plasma THYROID STIMULATING HORMONE Lab Routine Fatigue, unspecified type Expected: 04/10/2024, Expires: 07/10/2024 [facility] Comment on above: Expected: 04/10/2024 , Expires: 07/10/2024 Start: 04-06-2024 ANNUAL PCP TEAM CENTRIFUGAL SEPARATOR NICKY DISEASE VISIT ANNUAL PCP TEAM CHRONIC DISEASE VISIT [facility] Start: 12-23-2023 Patient discharge [facility] Start: 12-03-2023 Anes transurethral w/urethrocystoscopy nos ANESTH BLADDER SURGERY [facility] Start: 12-03-2023 Cysto w/urtroscopy&/pyeloscopy dx CYSTOURETERO & OR PYELOSCOPE [facility] Start: 12-03-2023 Patient discharge [facility] Start: 10-07-2023 Hemoglobin A1c measurement HbA1C [facility] Start: 09-15-2023 Patient referral [facility] Work Phone: Start: 08-02-2023 End: 11-01-2023 Bacteria identified in Urine by Culture URINE CULTURE Microbiology Routine Gross hematuria Expected: 08/02/2023, Expires: 11/01/2023 [facility] Work Phone: Comment on above: Expected: 08/02/2023 , Expires: 11/01/2023 Start: 08-02-2023 End: 11-01-2023 Basic metabolic 2000 panel - Serum or Plasma BASIC METABOLIC PNL Lab Routine Gross hematuria Expected: 08/02/2023, Expires: 11/01/2023 [facility] Work Phone: Comment on above: Expected: 08/02/2023 , Expires: 11/01/2023 Start: 08-02-2023 End: 11-01-2023 CBC W Auto Differential panel - Blood CBC + DIFF Lab Routine Gross hematuria Expected: 08/02/2023, Expires: 11/01/2023 [facility] Work Phone: Comment on above: Expected: 08/02/2023 , Expires: 11/01/2023 Start: 08-02-2023 End: 11-01-2023 Urinalysis complete panel - Urine URINALYSIS, WITH MICROSCOPIC Lab Routine Gross hematuria Expected: 08/02/2023, Expires: 11/01/2023 [facility] Work Phone: Comment on above: Expected: 08/02/2023 , Expires: 11/01/2023 Start: 06-19-2023 Mammography [facility] Start: 04-30-2023 Covid-19 Vaccine ( season) Covid-19 Vaccine ( season) [facility] Start: 04-30-2023 Influenza vaccination [facility] Start: 04-29-2023 DIABETES SCREEN DIABETES SCREEN [facility] Start: 04-06-2023 End: 06-06-2023 Acute hepatitis 2000 panel - Serum HEP ACUTE PANEL BL Lab Routine Elevated liver enzymes Expected: 04/06/2023, Expires: 06/06/2023 [facility] Work Phone: Comment on above: Expected: 04/06/2023 , Expires: 06/06/2023 Start: 04-06-2023 End: 06-06-2023 Hemoglobin A1c in Blood HGB A1C Lab Routine Elevated fasting glucose Expected: 04/06/2023, Expires: 06/06/2023 [facility] Work Phone: Comment on above: Expected: 04/06/2023 , Expires: 06/06/2023 Start: 04-06-2023 End: 06-06-2023 Hepatic function 2000 panel - Serum or Plasma HEPATIC FUNCTION PNL Lab Routine Elevated liver enzymes Expected: 04/06/2023, Expires: 06/06/2023 [facility] Work Phone: Comment on above: Expected: 04/06/2023 , Expires: 06/06/2023 Start: 03-24-2023 ANNUAL PCP TEAM CENTRIFUGAL SEPARATOR NICKY DISEASE VISIT ANNUAL PCP TEAM CHRONIC DISEASE VISIT [facility] Start: 03-20-2023 Hepatitis B surface antibody level LDL Cholesterol [facility] Start: 04-30-2022 Influenza vaccination INFLUENZA (#1) [facility] Start: 04-08-2022 ANNUAL PCP TEAM CENTRIFUGAL SEPARATOR NICKY DISEASE VISIT ANNUAL PCP TEAM CHRONIC DISEASE VISIT [facility] Start: 03-24-2022 End: 05-24-2022 Magnesium [Mass/volume] in Serum or Plasma MAGNESIUM BLD Lab Routine Palpitations Expected: 03/24/2022, Expires: 05/24/2022 [facility] Work Phone: Comment on above: Expected: 03/24/2022 , Expires: 05/24/2022 Start: 03-24-2022 End: 05-24-2022 Thyrotropin [Units/volume] in Serum or Plasma TSH BLD Lab Routine Palpitations Expected: 03/24/2022, Expires: 05/24/2022 [facility] Work Phone: Comment on above: Expected: 03/24/2022 , Expires: 05/24/2022 Start: 03-24-2022 End: 05-24-2022 Thyroxine (T4) free [Mass/volume] in Serum or Plasma T4 FREE/FREE THYROX Lab Routine Palpitations Expected: 03/24/2022, Expires: 05/24/2022 [facility] Work Phone: Comment on above: Expected: 03/24/2022 , Expires: 05/24/2022 Start: 06-12-2021 Mammography MAMMOGRAM [facility] Start: 05-20-2021 BP CONTROLLED (<130/80) BP CONTROLLE D (<130/80) [facility] Start: 2020 COLOGUARD (FIT-DNA) COLOGUARD (FIT-D NA) [facility] Start: [address] COLONOGRAPHY [facility] Start: 2020 FECAL OCCULT BLOOD FECAL OCCULT BLOO D [facility] Start: 2020 Screening for malign ant neoplasm of colon [facility] Start: 2020 SIGMOIDOSCOPY SIGMOIDOSCOPY [facility] Start: 10-27-2017 Glaucoma screening Dilated Retinal E xam [facility] Start: 1994 Hepatitis B Vaccine (1 of 3 - 19+ 3-dose series) Hepatitis B Vaccine (1 of 3 - 19+ 3-dose series) [facility] Start: 1994 Pneumococcal vaccination Pneum ococcal Vaccine (1 of 2 - PCV) [facility] Start: 1994 Pneumococcal Vaccine : 50+ (1 of 2 - PCV) Pneumococcal Vaccine: 50+ (1 of 2 - PCV) [facility] Start: 1993 HEPATITIS C SCREENING HEPATITIS C SC DEMAR [facility] Start: 1985 Hepatitis B screening Urine Albumin:Creatinine Ratio [facility] Start: 1975 COVID-19 VACCINE (#1) COVID-19 VACCI NE (#1) [facility] Start: 1975 HEPATITIS B (1 of 3 - 3-dose series) HEPATITIS B (1 of 3 - 3-dose series) [facility] Start: 1975 Hepatitis B Vaccine (1 of 3 - 3-dose series) Hepatitis B Vaccine (1 of 3 - 3-dose series) [facility] End: 08-31-2024 Ct abdomen & pelvis w/o contrst 1/> body re CT UROGRAM WO/W IVCON Radiology ABNER Gross hematuria 1 Occurrences starting 08/02/2023 until 08/31/2024 [facility] Work Phone: Comment on above: 1 Occurrences starti ng 08/02/2023 until 08/31/2024 End: 03-24-2023 ECG COMPLETE ECG COMPLETE ECG Routine Palpitations 1 Occurrences starting 03/24/2022 until 03/24/2023 [facility] Work Phone: Comment on above: 1 Occurrences starti ng 03/24/2022 until 03/24/2023 End: 03-24-2023 Echocardiography ECHO Cardiology Routine Palpitations 1 Occurrences starting 03/24/2022 until 03/24/2023 [facility] Work Phone: Comment on above: 1 Occurrences starti ng 03/24/2022 until 03/24/2023 EVENT MONITOR EVENT MONITOR Cardiology Routine Palpitations Ordered: 03/24/2022 [facility] Work Phone: Comment on above: Ordered: 03/24/2022 End: 04-10-2025 HOME SLEEP APNEA TEST (HSAT) HOME SLEEP APNEA TEST (HSAT) Procedures Routine Fatigue, unspecified type 1 Occurrences starting 04/10/2024 until 04/10/2025 [facility] Comment on above: 1 Occurrences starti ng 04/10/2024 until 04/10/2025 End: 05-05-2024 ROCIO SCREENING W KASSIDY ROCIO SCREENING W KASSIDY Radiology Routine Visit for screening mammogram 1 Occurrences starting 04/06/2023 until 05/05/2024 [facility] Work Phone: Comment on above: 1 Occurrences starti ng 04/06/2023 until 05/05/2024 End: 05-10-2025 MG Breast - bilateral Diagnostic ROCIO DIAGNOSTIC BILATERAL Radiology Routine Mass of left breast, unspecified quadrant 1 Occurrences starting 04/10/2024 until 05/10/2025 [facility] Comment on above: 1 Occurrences starti ng 04/10/2024 until 05/10/2025 Patient referral [facility] Work Phone: End: 04-17-2023 Screening mammography bi 2-view breast inc cad ROCIO SCREENING Radiology Routine Encounter for screening mammogram for breast cancer 1 Occurrences starting 03/18/2022 until 04/17/2023 [facility] Work Phone: Comment on above: 1 Occurrences starti ng 03/18/2022 until 04/17/2023 End: 05-05-2024 US ABD RIGHT UPPER QUADRANT US ABD RIGHT UPPER QUADRANT Radiology Routine Elevated liver enzymes 1 Occurrences starting 04/06/2023 until 05/05/2024 [facility] Work Phone: Comment on above: 1 Occurrences starti ng 04/06/2023 until 05/05/2024 End: 05-10-2025 US Breast - left limited US BREAST LTD LEFT Radiology Routine Mass of left breast, unspecified quadrant 1 Occurrences starting 04/10/2024 until 05/10/2025 [facility] Comment on above: 1 Occurrences starti ng 04/10/2024 until 05/10/2025 XR Chest PA and Lateral [facility] Immunizations Immunization Date Immunization Notes Care Provider Sinan ames 07-06-2024 influenza, seasonal, injectable, preservative free Silvana Ward INSULATION INSPECTOR-C Work Phone: [facility] 07-06-2024 influenza virus vaccine, unspecified formulation Silvana Ward MOTORBOAT MECHANIC.SPOT CHECKER Work Phone: [facility] 07-15-2023 influenza, injectabl e, quadrivalent, preservative free Dr. Jong Weems Work Phone: [facility] 07-15-2023 influenza virus vaccine, unspecified formulation Leander Swanson LPN [facility] 06-22-2022 influenza, injectabl e, quadrivalent, preservative free Dr. Jong Weems Work Phone: [facility] 06-22-2022 influenza, seasonal, injectable Dr. Jong Weems Work Phone: [facility] 06-22-2022 influenza virus vaccine, unspecified formulation NA Moss PA-C Work Phone: [facility] 06-17-2021 influenza, injectabl e, quadrivalent, preservative free Dr. Jong Weems Work Phone: [facility] 06-17-2021 influenza, seasonal, injectable [facility] 09-10-2020 tetanus toxoid, redu judy diphtheria toxoid, and acellular pertussis vaccine, adsorbed [facility] 07-04-2020 influenza, injectabl e, quadrivalent, preservative free Dr. Jong Weems Work Phone: [facility] 07-04-2020 influenza, seasonal, injectable [facility] 06-13-2019 influenza, seasonal, injectable NA Moss PA-C Work Phone: [facility] 05-25-2019 influenza, injectabl e, quadrivalent, preservative free Dr. Jong Weems Work Phone: [facility] 05-25-2019 influenza, seasonal, injectable [facility] 06-13-2018 influenza, injectabl e, quadrivalent, preservative free Dr. Jong Weems Work Phone: [facility] 06-13-2018 influenza, seasonal, injectable [facility] 07-26-2017 Influenza virus vaccine [facility] 06-05-2016 influenza virus vaccine, unspecified formulation NA Moss PA-C Work Phone: [facility] 06-12-2015 influenza virus vaccine, unspecified formulation NA Moss PA-C Work Phone: [facility] 01-28-2015 tetanus toxoid, redu judy diphtheria toxoid, and acellular pertussis vaccine, adsorbed NA Moss PA-C Work Phone: [facility] Payers Date Payer Category Payer Self-pay [id number] 2022 Private Health Insurance [id number] 2022 Unknown [id number] 2017 Unknown MMO MMO TPA [id number] 2017-Present [address] [place] [address] PPO [id number] 2017 Unknown MMO MMO TPA [id number] 2017-Present [address] [place] [address] PPO [id number] [facility] [id number] Unknown [id number] 62 Unknown [id number] Unknown [id number] 62 Unknown [id number] 62 Unknown [id number] 62 Unknown [id number] 2.16.840.1.656097.3.579.2.4 62 Unknown [id number] 2.16.840.1.979883.3.579.2.4 62 Unknown [id number] 2.16.840.1.448120.3.579.2.4 62 Unknown [id number] 2.16.840.1.814534.3.579.2.4 62 Unknown [id number] 2.16.840.1.723912.3.579.2.4 62 Unknown [id number] 2.16.840.1.592116.3.579.2.4 62 Unknown [id number] 2.16.840.1.630351.3.579.2.4 62 Unknown [id number] 2.16.840.1.423242.3.579.2.4 62 Unknown [id number] 2.16.840.1.606517.3.579.2.4 62 Unknown [id number] 2.16.840.1.676953.3.579.2.4 62 Unknown [id number] 2.16.840.1.993190.3.579.2.4 62 Unknown [id number] 2.16.840.1.189867.3.579.2.4 62 Unknown [id number] 2.16.840.1.851739.3.579.2.4 62 Unknown [id number] 2.16.840.1.721852.3.579.2.4 62 Unknown [id number] 2.16.840.1.042158.3.579.2.4 62 Unknown [id number] 2.16.840.1.602988.3.579.2.4 62 Unknown [id number] 2.16.840.1.977013.3.579.2.4 62 Unknown [id number] 2.16.840.1.984741.3.579.2.4 62 Unknown [id number] 2.16.840.1.814128.3.579.2.4 62 Unknown [id number] 2.16.840.1.801639.3.579.2.4 62 Unknown [id number] 2.16.840.1.975795.3.579.2.4 62 Unknown [id number] 2.16.840.1.529143.3.579.2.4 62 Unknown [id number] 2.16.840.1.851072.3.579.2.4 62 Social History Date Type Detail Facility Start: 05-24-2013 End: 06-08-2025 Tobacco smoking status NHIS Never smoked tobacco [facility] Start: 05-24-2013 Tobacco use and exposure Smokeless tobacco non-user [facility] Start: 09-07-2021 End: 03-13-2025 Alcohol intake Current non-drinker of alcohol (finding) [facility] Start: 04-06-2021 End: 03-24-2022 History SDOH Alcohol Frequency 2 [facility] Start: 04-06-2021 End: 03-24-2022 History SDOH Alcohol Std Drinks 1 [facility] Start: 04-06-2021 History SDOH Social Connections Phone 5 [facility] Start: 04-06-2021 History SDOH Social Connections Shinto 3 [facility] Start: 04-06-2021 History SDOH Social Connections Living 8 [facility] Start: 01-02-2020 Education 16 [facility] Start: 1975 Sex Assigned At Female [facility] Start: 10-22-2021 End: 12-23-2023 Tobacco smoking status NHIS Unknown if ever smoked [facility] Start: 04-06-2021 End: 08-02-2023 History of Social function [facility] Start: 04-06-2021 End: 08-02-2023 Social connection and isolation panel [facility] Do you belong to any clubs or organizations such as bahai groups, unions, fraternal or athletic groups, or school groups? No [facility] Are you now , , , , never or living with a partner? Living with partner [facility] How often to you hav e a drink containing alcohol? Monthly or less [facility] How many standard drinks containing alcohol do you have on a typical day? 1 or 2 [facility] How often do you hav e 6 or more drinks on 1 occasion? Never [facility] Start: 10-12-2012 How hard is it for y ou to pay for the very basics like food, housing, medical care, and heating Not hard at all [facility] Do you feel stress - tense, restless, nervous, or anxious, or unable to sleep at night because your mind is troubled all the time - these days [OSQ] Not at all [facility] (I/We) worried sadia er (my/our) food would run out before (I/we) got money to buy more. Never true [facility] Start: 04-17-2020 Gender identity Identifies as female gender (finding) [facility] Start: 04-17-2020 Sexual orientation Heterosexual (rodger berumen) [facility] Start: 08-30-2017 Occasional [facility] Start: 08-30-2017 None [facility] Start: 08-30-2017 Alone [facility] Do you feel stress - tense, restless, nervous, or anxious, or unable to sleep at night because your mind is troubled all the time - these days [OSQ] Only a little [facility] Start: 12-20-2024 Sex Female (finding) [facility] NEGATED: Highlighted row [facility] Medical Equipment Procedure Code Equipment Code Equipment Origin al Text Equipment Identifier Dates Arthroscopy, knee Tendon/ligamen t bone anchor, non-bioabsorbable [id number] FDA Start: 04-05-2025 Appendectomy, laparoscopic 45mm Standard Reload FDA Start: 09-03-2021 Appendectomy, laparoscopic 45mm Vascular Reload FDA Start: 09-03-2021 Appendectomy, laparoscopic Ligation clip, synthetic polymer, non-bioabsorbable [id number] FDA Start: 09-03-2021 Appendectomy, laparoscopic 45mm Standard Reload FDA Start: 09-03-2021 Appendectomy, laparoscopic 45mm Vascular Reload FDA Start: 09-03-2021 Appendectomy, laparoscopic 45mm Standard Reload FDA Start: 09-03-2021 Appendectomy, laparoscopic 45mm Vascular Reload FDA Start: 09-03-2021 Appendectomy, laparoscopic 45mm Standard Reload FDA Start: 09-03-2021 Appendectomy, laparoscopic 45mm Vascular Reload FDA Start: 09-03-2021 Appendectomy, laparoscopic 45mm Standard Reload FDA Start: 09-03-2021 Appendectomy, laparoscopic 45mm Vascular Reload FDA Start: 09-03-2021 Appendectomy, laparoscopic 45mm Standard Reload FDA Start: 09-03-2021 Appendectomy, laparoscopic 45mm Vascular Reload FDA Start: 09-03-2021 Appendectomy, laparoscopic 45mm Standard Reload FDA Start: 09-03-2021 Appendectomy, laparoscopic 45mm Vascular Reload FDA Start: 09-03-2021 Appendectomy, laparoscopic 45mm Standard Reload FDA Start: 09-03-2021 Appendectomy, laparoscopic 45mm Vascular Reload FDA Start: 09-03-2021 Appendectomy, laparoscopic 45mm Standard Reload FDA Start: 09-03-2021 Appendectomy, laparoscopic 45mm Vascular Reload FDA Start: 09-03-2021 Appendectomy, laparoscopic 45mm Standard Reload FDA Start: 09-03-2021 Appendectomy, laparoscopic 45mm Vascular Reload FDA Start: 09-03-2021 Appendectomy, laparoscopic 45mm Standard Reload FDA Start: 09-03-2021 Appendectomy, laparoscopic 45mm Vascular Reload FDA Start: 09-03-2021 Appendectomy, laparoscopic 45mm Standard Reload FDA Start: 09-03-2021 Appendectomy, laparoscopic 45mm Vascular Reload FDA Start: 09-03-2021 Appendectomy, laparoscopic 45mm Standard Reload FDA Start: 09-03-2021 Appendectomy, laparoscopic 45mm Vascular Reload FDA Start: 09-03-2021 Appendectomy, laparoscopic 45mm Standard Reload FDA Start: 09-03-2021 Appendectomy, laparoscopic 45mm Vascular Reload FDA Start: 09-03-2021 Appendectomy, laparoscopic 45mm Standard Reload FDA Start: 09-03-2021 Appendectomy, laparoscopic 45mm Vascular Reload FDA Start: 09-03-2021 Appendectomy, laparoscopic 45mm Standard Reload FDA Start: 09-03-2021 Appendectomy, laparoscopic 45mm Vascular Reload FDA Start: 09-03-2021 Appendectomy, laparoscopic 45mm Standard Reload FDA Start: 09-03-2021 Appendectomy, laparoscopic 45mm Vascular Reload FDA Start: 09-03-2021 Appendectomy, laparoscopic 45mm Standard Reload FDA Start: 09-03-2021 Appendectomy, laparoscopic 45mm Vascular Reload FDA Start: 09-03-2021 Appendectomy, laparoscopic 45mm Standard Reload FDA Start: 09-03-2021 Appendectomy, laparoscopic 45mm Vascular Reload FDA Start: 09-03-2021 Appendectomy, laparoscopic 45mm Standard Reload FDA Start: 09-03-2021 Appendectomy, laparoscopic 45mm Vascular Reload FDA Start: 09-03-2021 Appendectomy, laparoscopic 45mm Standard Reload FDA Start: 09-03-2021 Appendectomy, laparoscopic 45mm Vascular Reload FDA Start: 09-03-2021 Appendectomy, laparoscopic 45mm Standard Reload FDA Start: 09-03-2021 Appendectomy, laparoscopic 45mm Vascular Reload FDA Start: 09-03-2021 Appendectomy, laparoscopic 45mm Standard Reload FDA Start: 09-03-2021 Appendectomy, laparoscopic 45mm Vascular Reload FDA Start: 09-03-2021 Appendectomy, laparoscopic 45mm Standard Reload FDA Start: 09-03-2021 Appendectomy, laparoscopic 45mm Vascular Reload FDA Start: 09-03-2021 Appendectomy, laparoscopic 45mm Standard Reload FDA Start: 09-03-2021 Appendectomy, laparoscopic 45mm Vascular Reload FDA Start: 09-03-2021 STENT,URETERAL 6 FR PIG 6X26 FDA Start: 12-17-2017 STENT,URETERAL 6 FR PIG 6X26 FDA Start: 12-17-2017 STENT,URETERAL 6 FR PIG 6X26 FDA Start: 12-17-2017 STENT,URETERAL 6 FR PIG 6X26 FDA Start: 12-17-2017 STENT,URETERAL 6 FR PIG 6X26 FDA Start: 12-17-2017 STENT,URETERAL 6 FR PIG 6X26 FDA Start: 12-17-2017 STENT,URETERAL 6 FR PIG 6X26 FDA Start: 12-17-2017 STENT,URETERAL 6 FR PIG 6X26 FDA Start: 12-17-2017 STENT,URETERAL 6 FR PIG 6X26 FDA Start: 12-17-2017 STENT,URETERAL 6 FR PIG 6X26 FDA Start: 12-17-2017 STENT,URETERAL 6 FR PIG 6X26 FDA Start: 12-17-2017 STENT,URETERAL 6 FR PIG 6X26 FDA Start: 12-17-2017 STENT,URETERAL 6 FR PIG 6X26 FDA Start: 12-17-2017 STENT,URETERAL 6 FR PIG 6X26 FDA Start: 12-17-2017 STENT,URETERAL 6 FR PIG 6X26 FDA Start: 12-17-2017 STENT,URETERAL 6 FR PIG 6X26 FDA Start: 12-17-2017 STENT,URETERAL 6 FR PIG 6X26 FDA Start: 12-17-2017 STENT,URETERAL 6 FR PIG 6X26 FDA Start: 12-17-2017 STENT,URETERAL 6 FR PIG 6X26 FDA Start: 12-17-2017 STENT,URETERAL 6 FR PIG 6X26 FDA Start: 12-17-2017 STENT,URETERAL 6 FR PIG 6X26 FDA Start: 12-17-2017 STENT,URETERAL 6 FR PIG 6X26 FDA Start: 12-17-2017 STENT,URETERAL 6 FR PIG 6X26 FDA Start: 12-17-2017 STENT,URETERAL 6 FR PIG 6X26 FDA Start: 12-17-2017 STENT,URETERAL 6 FR PIG 6X26 FDA Start: 12-17-2017 Goals Date Patient Goal Desired Activity /State Functional Status Date Assessment Result Facility 06-07-2025 Functional status Ambulates [facility] Work Phone: 03-13-2025 Total score [AUDIT-C] 1 03/13/20 7:57 AM EDT User, Carlos [facility] 03-13-2025 How often to you hav e a drink containing alcohol? Monthly or less 03/13/2025 7:57 AM EDT User, Carlos Monthly or less [facility] 03-13-[address] inks containing alcohol do you have on a typical day? 1 or 2 03/13/2025 7:57 AM EDT User, Rumat 1 or 2 [facility] 03-13-2025 How often do you hav e 6 or more drinks on 1 occasion? Never 03/13/2025 7:57 AM EDT User, Rumat Never [facility] 03-08-2015 Are you deaf, or do you have serious difficulty hearing No 03/08/2015 8:42 AM Joanne Quan Ma No [facility] 03-08-2015 Are you blind, or do you have serious difficulty seeing, even when wearing glasses No 03/08/2015 8:42 AM Joanne Quan Ma No [facility] 03-08-2015 Do you have serious difficulty walking or climbing stairs No 03/08/2015 8:42 AM Joanne Quan Ma No [facility] 03-08-2015 Do you have difficul ty dressing or bathing No 03/08/2015 8:42 AM Joanne Quan Ma No [facility] 03-08-2015 Because of a physica l, mental, or emotional condition, do you have difficulty doing errands alone such as visiting a physician's office or shopping No 03/08/2015 8:42 AM EDT Joanne Uriostegui Ma [facility] Mental Status Date Assessment Result Facility 06-07-2025 Cognitive function Level Of Cons ciousness Awake [facility] Work Phone: 06-07-2025 Cognitive function Voice/Name [facility] Work Phone: 05-29-2025 Cognitive function Level Of Cons ciousness Drowsy [facility] Work Phone: 04-05-2025 Cognitive function Voice/Name [facility] Work Phone: 12-03-2023 Cognitive function Voice/Name;Touch/Shaki ng [facility] Work Phone: 03-08-2015 Because of a physica l, mental, or emotional condition, do you have serious difficulty concentrating, remembering, or making decisions No 03/08/2015 8:42 AM EDT Joanne Uriostegui Ma [facility] Clinical Notes 03-08-2015 to 06-20-2025 Note Date & Type Note Facility 06-20-2025 Progress note [facility] 06-20-2025 Progress note Note Date/Time June 20, 2025 3:14pm [facility] [address] [place] [address]. [address] [place] [address] OFFICE VISIT Date of Service: 06/20/25 MR#: [id number] Acct: [id number] Name: ELIZABETH BABB Rep #: [id number] : 1975 Provider: Dr. Preston Swann MD Age/Sex: 50/F Location: [facility] Status: Signed Intake Vital Signs 06/08/25 13:25 Height 5 ft 6 in Intake Visit Reasons: WOUND CHECK Chief Complaint: wound check Nremt Required: No Is patient in pain?: No Allergies latex Allergy (Verified 06/20/25 13:51) Swelling, itching Penicillins (PCN) Allergy (Verified 06/20/25 13:51) other Sulfa (Sulfonamide Antibiotics) Allergy (Verified 06/20/25 13:51) Hives, welts Medications ?Medication ?Instructions ?Recorded ?Confirmed ?Type sertraline 100 mg tablet 100 mg PO QHS mental health 08/30/17 06/20/25 History lisinopril 10 mg tablet 10 mg PO QHS blood pressure 12/14/17 06/20/25 History metformin 500 mg tablet,extended 500 mg PO BID 4 06/20/25 History release 24 hr vitamin E (dl, acetate) 180 mg 180 mg PO BID #60 caps 06/06/24 06/20/25 Rx (400 unit) capsule Hydrocortisone 2.5%/lidocaine 5% #42 ea 11/10/2406/20 Rx suppository (cmpd) cholecalciferol (vitamin D3) 125 125 mcg PO DAILY 05/2406/20/25 History mcg (5,000 unit) tablet (Vitamin D3) magnesium 250 mg tablet 250 mg PO DAILY 03/07/25 History Have you fallen in the past year?: No Subjective Details: The patient is a 50-year-old female status post a lateral internal sphincterotomy for treatment of a very large chronic anal fissure. Her postoperative course was complicated by an abscess that developed at the incision site of the sphincterotomy. She subsequently underwent a second surgery to drain this abscess. She was seen last week in follow-up and was having less pain. She presents again for another wound reevaluation. She states she is still having some drainage from the I&D site. She is also having some induration in the area of the abscess as well as some induration to the right buttock as well but no tenderness. She denies any fevers or chills. She isoff of antibiotics. Objective Details: She is alert and oriented x 3. She is in no acute distress. The I&D site appears to be slowly healing. There is some mild exudate present. I encouraged her to try to wash this away with showering and bathing. There is still some induration to the area as well as the right buttock area. I reassured her that this induration is not uncommon and should steadily improve. She has noticed that this has gone down considerably. Coding Level of Care Code Global Post Op Diagnoses Status post incision and drainage Z98.890 [facility] Medical History (Updated 06/12/25 @ 00:00 by Background Daemon) Normal Holter exam Anal fissure Effusion, left knee Diabetes Restless legs Shortness of breath on exertion Leg cramps Cardiology follow-up encounter History of echocardiogram History of stress test Nonrheumatic mitral valve disorder Fatty liver Wears glasses Depression Anxiety Back pain Non-smoker History of edema Hypertension Labral tear of right hip joint Segmental and somatic dysfunction of pelvic region Segmental and somatic dysfunction of lumbar region Segmental and somatic dysfunction of thoracic region Segmental and somatic dysfunction of cervical region Surgical History (Updated 06/12/25 @ 00:00 by Background Daemon) Status post incision and drainage Hx of knee surgery Hx of cystoscopy History of adenoidectomy History of laparoscopic appendectomy (~09/03/21) History of History of lithotripsy History of tonsillectomy History of colonoscopy (~2015) History of hysterectomy (~2011) History of cholecystectomy (~2001) Family History Mother Hypertension Thyroid disorder Depression Rheumatoid arthritis Grandmother Parkinsons disease Social History household members: spouse and children housing: house number of children: 3 current occupational status: employed pets and animals: Yes Smoking Status: Never smoker alcohol intake: never substance use type: does not use caffeine: Yes (occasional) what type of physical activity do you participate in: none seatbelt use: always do you feel safe at home: Yes Assessment and Plan (No Qualifiers) Assessment and Plan (1) Status post incision and drainage: Status: Acute Comment: For perirectal abscess Plan The patient is a 50-year-old female status post a lateral internal sphincterotomy which was complicated by postoperative abscess. This is since been drained. She seems to be improving albeit slowly. I recommend that she continue to keep the area clean and also continue doing tub soaks. Follow-up will be in about 10 days. She may certainly call if any questions or problems arise Plan Details Goals & Barriers: Goals Decrease spasm Improve ROM Decrease pain Barriers Repetitive bending/lifting 06/20/25 5360 <Electronically signed by Riley elkins MD> Date _ Riley Buitrago Signature: Date (if applicable) CC: ~ [facility] Work Phone: 1(315) 199-734310-15-2025 [facility] [address] [place] [address] OFFICE VISIT Date of Service: 06/13/25 MR#: [id number] Acct: [id number] Name: ELIZABETH BABB Rep #: [id number] : 1975 Provider: KAVON Serra Age/Sex: 50/F Location: [facility] Status: Signed Intake Vital Signs 05/29/25 12:23 06/08/25 13:25 Height 5 ft 6 in 5 ft 6 in Intake Visit Reasons: ANAL FISSURE DOS 05/29 Chief Complaint: anal fissure DOS 05/29 Is patient in pain?: Yes Allergies latex Allergy (Verified 06/13/25 08:39) Swelling, itching Penicillins (PCN) Allergy (Verified 06/13/25 08:39) other Sulfa (Sulfonamide Antibiotics) Allergy (Verified 06/13/25 08:39) Hives, welts Medications ?Medication ?Instructions ?Recorded ?Confirmed ?Type sertraline 100 mg tablet 100 mg PO QHS mental health 08/30/17 06/13/25 History lisinopril 10 mg tablet 10 mg PO QHS blood pressure 12/14/17 06/13/25 History metformin 500 mg tablet,extended 500 mg PO BID 4 06/13/25 History release 24 hr vitamin E (dl, acetate) 180 mg 180 mg PO BID #60 caps 06/06/24 06/13/25 Rx (400 unit) capsule Hydrocortisone 2.5%/lidocaine 5% #42 ea 11/10/2406/13 Rx suppository (cmpd) cholecalciferol (vitamin D3) 125 125 mcg PO DAILY 05/2406/13/25 History mcg (5,000 unit) tablet (Vitamin D3) magnesium 250 mg tablet 250 mg PO DAILY 03/07/25 History Subjective Details: Patient is a 50 y/o F I am following s/p lateral internal sphincterotomy by Dr. Swann on 05/29 and s/p I&D left sided perirectal abscess by Dr. Swann on 06/06/25.Patient returns for a follow-up noting she has completed her antibiotics that were prescribed last Wednesday. She continues to note drainage from the left lateral open wound. She notes drainage color is serosanguineous. She notes seeing Dr. Foss last Wednesday for a concern of a possible right gluteal abscess. Ultrasound was used by Dr. Foss which only noted edema of the firm area of right gluteus, no fluid collection was noted. There was faint erythema noted at that time. Patient notes the area has become more focal and less broad in size. She also notes an area of tenderness/ecchymosis of the left forearm region. She notes this was the area of the initial IV which had infiltrated. Shedenies using any warm compresses. She notes the vessel is raised and tender (like a bruise). She denies the area becoming any worse. Objective Details: Anus, left lateral- open wound with healthy granulation tissue noted. No active drainage noted. No erythema noted Right inner gluteal area near the anus- 4 cm focal firm area with no erythema noted. No fluctuance noted. Likely dependent edema. Coding Level of Care Code Global Post Op Diagnoses Status post incision and drainage Z98.890 [facility] Medical History (Updated 06/12/25 @ 00:00 by Background Daemon) Normal Holter exam Anal fissure Effusion, left knee Diabetes Restless legs Shortness of breath on exertion Leg cramps Cardiology follow-up encounter History of echocardiogram History of stress test Nonrheumatic mitral valve disorder Fatty liver Wears glasses Depression Anxiety Back pain Non-smoker History of edema Hypertension Labral tear of right hip joint Segmental and somatic dysfunction of pelvic region Segmental and somatic dysfunction of lumbar region Segmental and somatic dysfunction of thoracic region Segmental and somatic dysfunction of cervical region Surgical History (Updated 06/12/25 @ 00:00 by Background Daemon) Status post incision and drainage Hx of knee surgery Hx of cystoscopy History of adenoidectomy History of laparoscopic appendectomy (~09/03/21) History of History of lithotripsy History of tonsillectomy History of colonoscopy (~2015) History of hysterectomy (~2011) History of cholecystectomy (~2001) Family History Mother Hypertension Thyroid disorder Depression Rheumatoid arthritis Grandmother Parkinsons disease Social History household members: spouse and children housing: house number of children: 3 current occupational status: employed pets and animals: Yes Smoking Status: Never smoker alcohol intake: never substance use type: does not use caffeine: Yes (occasional) what type of physical activity do you participate in: none seatbelt use: always do you feel safe at home: Yes Assessment and Plan (No Qualifiers) Assessment and Plan (1) Status post incision and drainage: Status: Acute Comment: For perirectal abscess Plan: No further antibiotic treatment needed Recommend continuing sitz bathes with Epsom salts 1-3 times daily Continue to monitor area of the right inner glut Recommend warm compresses to the right forearm 3 times per day Continue to keep the left gluteal wound covered to allow for drainage. No packing is needed Follow-up in [address] Swann Plan Details Goals & Barriers: Goals Decrease spasm Improve ROM Decrease pain Barriers Repetitive bending/lifting 06/14/25 1200 th CELINE JACOBSON> Date _ Sheila Buitrago Signature: Date (if applicable) CC: ~ [id number] [facility] [address] [place] [address] OFFICE VISIT Date of Service: 06/08/25 MR#: [id number] Acct: [id number] Name: ELIZABETH BABB Rep #: [id number] : 1975 Provider: Dr. Lauren Foss MD Age/Sex: 50/F [place] [facility] Status: Signed Intake Vital Signs 06/06/25 09:48 06/08/25 13:25 Height 5 ft 6 in 5 ft 6 in Intake Visit Reasons: YANCI RECTAL ABSCESS Chief Complaint: yanci rectal abscess Is patient in pain?: Yes (Right buttock pain) Allergies latex Allergy (Verified 06/08/25 14:17) Swelling, itching Penicillins (PCN) Allergy (Verified 06/08/25 14:17) other Sulfa (Sulfonamide Antibiotics) Allergy (Verified 06/08/25 14:17) Hives, welts Medications ?Medication ?Instructions ?Recorded ?Confirmed ?Type sertraline 100 mg tablet 100 mg PO QHS mental health 08/30/17 06/08/25 History lisinopril 10 mg tablet 10 mg PO QHS blood pressure 12/14/17 06/08/25 History metformin 500 mg tablet,extended 500 mg PO BID 4 06/08/25 History release 24 hr vitamin E (dl, acetate) 180 mg 180 mg PO BID #60 caps 06/06/24 06/08/25 Rx (400 unit) capsule Hydrocortisone 2.5%/lidocaine 5% #42 ea 11/10/2406/08 Rx suppository (cmpd) cholecalciferol (vitamin D3) 125 125 mcg PO DAILY 05/2406/08/25 History mcg (5,000 unit) tablet (Vitamin D3) magnesium 250 mg tablet 250 mg PO DAILY 03/07/2506/23 History Subjective Details: 50-year-old female presents due to questionable new soreness on the right gluteal cheek. Patient status post lateral stricturotomy and then abscess status post I&D and hospitalization for the abscess. Patient show and just leftthe hospital yesterday. She notes that she had little bit of rednessand some soreness on the right gluteal cheek and was concerned if something else could bedeveloping. Objective Details: Right gluteal cheek faint erythema, mildly sore, bedside ultrasound shows some edema of the tissue but no area of abscess. Previous I&D site healing well?okayto leave packing out as skin edges are further apart Coding Level of Care Code Global Post Op Diagnoses Status post incision and drainage Z98.890 [facility] Medical History Normal Holter exam Anal fissure Effusion, left knee Diabetes Restless legs Shortness of breath on exertion Leg cramps Cardiology follow-up encounter History of echocardiogram History of stress test Nonrheumatic mitral valve disorder Fatty liver Wears glasses Depression Anxiety Back pain Non-smoker History of edema Hypertension Labral tear of right hip joint Segmental and somatic dysfunction of pelvic region Segmental and somatic dysfunction of lumbar region Segmental and somatic dysfunction of thoracic region Segmental and somatic dysfunction of cervical region Surgical History (Updated 06/07/25 @ 11:[address] Madina Foss MD) Status post incision and drainage Hx of knee surgery Hx of cystoscopy History of adenoidectomy History of laparoscopic appendectomy (~09/03/21) History of History of lithotripsy History of tonsillectomy History of colonoscopy (~2015) History of hysterectomy (~2011) History of cholecystectomy (~2001) Family History Mother Hypertension Thyroid disorder Depression Rheumatoid arthritis Grandmother Parkinsons disease Social History household members: spouse and children housing: house number of children: 3 current occupational status: employed pets and animals: Yes Smoking Status: Never smoker alcohol intake: never substance use type: does not use caffeine: Yes (occasional) what type of physical activity do you participate in: none seatbelt use: always do you feel safe at home: Yes Assessment and Plan (No Qualifiers) Assessment and Plan (1) Status post incision and drainage: Status: Acute Comment: For perirectal abscess Plan Discussed with patient that right gluteal cheek did not have any evidence of abscess there is some edema of the tissue per bedside ultrasound the patient is on clindamycin. Recommend her continue andcomplete the course of antibiotics. Also informed patient she could hold off on packing as the skinedges on the I&Dsite were far enough off apart. Patient has a follow-up appointment next week. Patient no further questions at this time. Madina Foss M.D. Pager: [phone] [facility] [address] [place] [address], [facility], [address] [place] [address] Office: [phone] Plan Details Goals & Barriers: Goals Decrease spasm Improve ROM Decrease pain Barriers Repetitive bending/lifting 06/11/25 0954 am MD> Date _ Madina Foss MD Cosigner Signature: Date (if applicable) CC: KENISHA Ward ~ [facility]10-10-2025 Progress note Author Madina Foss [facility] Note Date/Time June 08, 2025 3 :23pm [facility] [address] [place] [address]. [address] [place] [address] OFFICE VISIT Date of Service: 06/08/25 MR#: [id number] Acct: [id number] Name: ELIZABETH BABB Rep #: [id number] : 1975 Provider: Dr. Lauren Foss MD Age/Sex: 50/F Location: [facility] Status: Signed Intake Vital Signs 06/06/25 09:48 06/08/25 13:25 Height 5 ft 6 in 5 ft 6 in Intake Visit Reasons: YANCI RECTAL ABSCESS Chief Complaint: yanci rectal abscess Is patient in pain?: Yes (Right buttock pain) Allergies latex Allergy (Verified 06/08/25 14:17) Swelling, itching Penicillins (PCN) Allergy (Verified 06/08/25 14:17) other Sulfa (Sulfonamide Antibiotics) Allergy (Verified 06/08/25 14:17) Hives, welts Medications ?Medication ?Instructions ?Recorded ?Confirmed ?Type sertraline 100 mg tablet 100 mg PO [facility] mental health 08/30/17 06/08/25 History lisinopril 10 mg tablet 10 mg PO QHS blood pressure 12/14/17 06/08/25 History metformin 500 mg tablet,extended 500 mg PO BID 4 06/08/25 History release 24 hr vitamin E (dl, acetate) 180 mg 180 mg PO BID #60 caps 06/06/24 06/08/25 Rx (400 unit) capsule Hydrocortisone 2.5%/lidocaine 5% #42 ea 11/10/2406/08 Rx suppository (cmpd) cholecalciferol (vitamin D3) 125 125 mcg PO DAILY 05/2406/08/25 History mcg (5,000 unit) tablet (Vitamin D3) magnesium 250 mg tablet 250 mg PO DAILY 03/07/2506/23 History Subjective Details: 50-year-old female presents due to questionable new soreness on the right gluteal cheek. Patient status post lateral stricturotomy and then abscess status post I&D and hospitalization for the abscess. Patient show and just leftthe hospital yesterday. She notes that she had little bit of redness and some soreness on the right gluteal cheek and was concerned if something else could bedeveloping. Objective Details: Right gluteal cheek faint erythema, mildly sore, bedside ultrasound shows some edema of the tissue but no area of abscess. Previous I&D site healing well?okayto leave packing out as skin edges are further apart Coding Level of Care Code Global Post Op Diagnoses Status post incision and drainage Z98.890 [facility] Medical History Normal Holter exam Anal fissure Effusion, left knee Diabetes Restless legs Shortness of breath on exertion Leg cramps Cardiology follow-up encounter History of echocardiogram History of stress test Nonrheumatic mitral valve disorder Fatty liver Wears glasses Depression Anxiety Back pain Non-smoker History of edema Hypertension Labral tear of right hip joint Segmental and somatic dysfunction of pelvic region Segmental and somatic dysfunction of lumbar region Segmental and somatic dysfunction of thoracic region Segmental and somatic dysfunction of cervical region Surgical History (Updated 06/07/25 @ 11:[address] Madina Foss MD) Status post incision and drainage Hx of knee surgery Hx of cystoscopy History of adenoidectomy History of laparoscopic appendectomy (~09/03/21) History of History of lithotripsy History of tonsillectomy History of colonoscopy (~2015) History of hysterectomy (~2011) History of cholecystectomy (~2001) Family History Mother Hypertension Thyroid disorder Depression Rheumatoid arthritis Grandmother Parkinsons disease Social History household members: spouse and children housing: house number of children: 3 current occupational status: employed pets and animals: Yes Smoking Status: Never smoker alcohol intake: never substance use type: does not use caffeine: Yes (occasional) what type of physical activity do you participate in: none seatbelt use: always do you feel safe at home: Yes Assessment and Plan (No Qualifiers) Assessment and Plan (1) Status post incision and drainage: Status: Acute Comment: For perirectal abscess Plan Discussed with patient that right gluteal cheek did not have any evidence of abscess there is some edema of the tissue per bedside ultrasound the patient is on clindamycin. Recommend her continue and complete the course of antibiotics. Also informed patient she could hold off on packing as the skin edges on the I&Dsite were far enough off apart. Patient has a follow-up appointment next week. Patient no further questions at this time. Madina Foss M.D. Pager: [phone] [facility] [address] [place] [address] [place] [address] Office: [phone] Plan Details Goals & Barriers: Goals Decrease spasm Improve ROM Decrease pain Barriers Repetitive bending/lifting 06/11/25 0954 <Electronically signed by Madina Mendoza am, MD> Date _ Madina Foss MD Cosigner Signature: Date (if applicable) CC: INSULATION INSPECTOR-C Silvana Ward ~ [facility] Work Phone: 1(528) 209-462210-09-[address] [facility] Medical Records Department [address] [place] [address] Counseling Note - Pharmacy 06/07/25 1322 MR#: [id number] Acct: [id number] Name: ELIZABETH BABB Rep #:[id number] : 1975 50 From: Ethan johnson PCP: Silvana Ward, KENISHA Status:ADM I NO Y Location: [place] [address] Pharmacy [place] Med Reconciliation Pharmacy Service has performed discharge medication reconciliation for this patient. The patient's discharge medication list was reviewed for discrepancies and discrepancies were resolved. Medications at Discharge Home Medications sertraline 100 mg tablet 100 mg PO QHS mental health 08/30/17 lisinopril 10 mg tablet 10 mg PO QHS blood pressure 12/14/17 metformin 500 mg tablet,extended release 24 hr 500 mg PO BID 11/29/23 vitamin E (dl, acetate) 180 mg (400 unit) capsule 180 mg PO BID #60 caps 06/06/24 Hydrocortisone 2.5%/lidocaine 5% suppository (cmpd) #42 ea 11/10/24 cholecalciferol (vitamin D3) 125 mcg (5,000 unit) tablet (Vitamin D3) 125 mcg PODAILY 03/07/25 magnesium 250 mg tablet 250 mg PO DAILY 03/07/25 clindamycin HCl 300 mg capsule (Cleocin HCl) 300 mg PO TID 7 days #21 caps 06/04/25 06/07/25 1322 ebly> Date _ Ethan Buitrago Signature (if applicable): Date CC: ~ Signed [facility]10-09-2025 Discharge summary Author Madina [facility] Note Date/Time June 07, 2025 11 :42am [facility] Medical Records Department [address] [place] [address] Instructions for Home/Discharge Instructions 06/07/25 1139 MR#: [id number] Acct: [id number] Name: ELIZABETH BABB Rep #:[id number] : 1975 50 From: Madina Foss MD PCP: Silvana Ward NP-C Status:ADM I NO Discharge Instructions Diet Discharge Diet: Light diet - advance as tolerated Activity Discharge Activity: May Not Drive (while taking narcotic pain medications.) May shower in (days): 1 Lifting Restrictions: Continue previous lifting restrictions from sphincterotomy Dressing / Incision Call your doctor if your incision/area has: Continuous Slow Oozing, Sudden Increased Bleeding, Increased Pain/ Swelling, Increased Redness, Foul Smelling Discharge and Swelling at the incision site Call your doctor if you observe: Fever of 101 or Higher Change Dressing in: 1 day (Packed with half-inch iodoform daily x 1 week) Cleanse incision/area with: Soap & Water Follow Up Care Please Follow Up With: Riley Swann MD When: Keep previously scheduled appointment with Dr. Hays; after 5 PM and on the weekends call [phone] with any concerns. Test Results: Test results from this visit will be discussed in further detail at your follow- up appointment, if applicable. Discharge Plan Admission Admit Date/Time: 06/06/25 08:10 Attending Provider: Riley Swann Primary Care Provider: Silvana Ward NP Discharge Orders/Prescriptions Prescriptions: Continued clindamycin HCl [Cleocin HCl] 300 mg capsule 300 mg PO TID 7 Days Qty: 21 0RF sertraline 100 MG tablet 100 mg PO QHS lisinopril 10 MG tablet 10 mg PO QHS cholecalciferol (vitamin D3) [Vitamin D3] 125 mcg (5,000 unit) tablet 125 mcg PO DAILY magnesium 250 mg tablet 250 mg PO DAILY metformin 500 mg tablet extended release 24 hr 500 mg PO BID vitamin E (dl, acetate) 180 mg (400 unit) capsule 180 mg PO BID Qty: 60 3RF (DME) Hydrocortisone 2.5%/lidocaine 5% suppository (cmpd) Suppository See Rx Instructions .Route Qty: 42 0RF Rx Instructions: apply to rectum BID Discontinued (DME) Diltiazem 2%/Lidocaine 5% ointment (compound) Ointment See Rx Instructions .Route Qty: 1 0RF Rx Instructions: As directed Referrals / Follow Up: Silvana Ward NP, INSULATION INSPECTOR-C [Primary Care Provider, Medical] Disposition Disposition (needs filled in before D/C Order can be placed): Home, Self Care 06/07/25 1142<Electronically signed by Madina Foss MD>Madina Foss MD CC: INSULATION INSPECTOR-C Silvana Ward; Dr. Riley Swann MD ~ Signed [facility] Work Phone: 1(233) 979-585310-09-2025 Progress note Author [facility] Note Date/Time June 07, 2025 11 :39am [facility] Medical Records Department [address] [place] [address] Progress Note - Surgery 06/07/25 0735 MR#: [id number] Acct: [id number] Name: ELIZABETH BABB Rep #:[id number] : 1975 50 From: Madina Foss MD PCP: KENISHA Pham Status:ADM I NO [id number] Subjective Subjective Patient tolerating diet. Pain controlled. Objective Data Objective Data Vital Signs: Vital Signs Temp Pulse Resp BP Pulse Ox O2 Del Method O2 Flow Rate 98.9 F 65 15 99/50 L 98 Room Air 2 06/07/25 05:00 06/07/25 05:00 06/07/25 05:00 06/07/25 05:00 06/07/25 05:00 06/07/25 05:00 06/06/25 15:15 Oxygen Flow Rate (L/min) 2 Oxygen Delivery Method Room Air Weight: 237 lb Body Mass Index (BMI) 38.2 Intake & Output: Intake and Output for Last 24 Hours 06/05/25 06/06/25 06/07/25 23:59 23:59 23:59 Intake Total 3077.34 / 3377.34 880.66 / 880.66 Output Total Balance 3062.34 / 3362.34 880.66 / 880.66 Lab / Micro Data 06/06/25 05:56 06/06/25 05:56 Labs: Laboratory Results - last 24 hr 06/06/25 05:56: Hemoglobin A1c 6.1 H 06/06/25 12:02: POC Glucose 108 H Physical Exam Const oriented x3 and no apparent distress GI GI Narrative: Left perirectal incision packed with iodoform. Iodoform packing removed at bedside patient tolerated with some pain. Repacked with half-inch iodoform. Assessment & Plan Assessment/Plan (1) Status post incision and drainage: (2) Perirectal abscess: PLAN: Plan Patient tolerated repacking at bedside. Patient's was also taught how to repack once daily x 1 week. Patient will keep her scheduled follow-up appointment also continue on and complete her clindamycin she already has at home p.o. Will DC home. Madina Foss M.D. Pager: [phone] [facility] [address] [place] [address], [facility], [address] [place] [address] Office: [phone] 06/07/25 1139 <Electronically signed by Madina Foss MD> Cosigner Signature (if applicable): CC: ~ Signed [facility] Work Phone: 1(571) 158-620410-09-2025 Discharge summary [facility] Medical Records Department [address] [place], [place] [id number] Instructions for Home/Discharge Instructions 06/07/25 1139 MR#: [id number] Acct: [id number] Name: ELIZABETH BABB Rep #:[id number] : 1975 50 From: Madina Foss MD PCP: KENISHA Pham Status:ADM I NO Discharge Instructions Diet Discharge Diet: Light diet - advance as tolerated Activity Discharge Activity: May Not Drive (while taking narcotic pain medications.) May shower in (days): 1 Lifting Restrictions: Continue previous lifting restrictions from sphincterotomy Dressing / Incision Call your doctor if your incision/area has: Continuous Slow Oozing, Sudden Increased Bleeding, Increased Pain/ Swelling, Increased Redness, Foul Smelling Discharge and Swelling at the incision site Call your doctor if you observe: Fever of 101 or Higher Change Dressing in: 1 day (Packed with half-inch iodoform daily x 1 week) Cleanse incision/area with: Soap & Water Follow Up Care Please Follow Up With: Riley Swann MD When: Keep previously scheduled appointment with Dr. Hays; after 5 PM and on the weekends call [phone] with any concerns. Test Results: Test results from this visit will be discussed in further detail at your follow- up appointment, if applicable. Discharge Plan Admission Admit Date/Time: 06/06/25 08:10 Attending Provider: Riley Swann Primary Care Provider: Silvana Ward NP Discharge Orders/Prescriptions Prescriptions: Continued clindamycin HCl [Cleocin HCl] 300 mg capsule 300 mg PO TID 7 Days Qty: 21 0RF sertraline 100 MG tablet 100 mg PO QHS lisinopril 10 MG tablet 10 mg PO QHS cholecalciferol (vitamin D3) [Vitamin D3] 125 mcg (5,000 unit) tablet 125 mcg PO DAILY magnesium 250 mg tablet 250 mg PO DAILY metformin 500 mg tablet extended release 24 hr 500 mg PO BID vitamin E (dl, acetate) 180 mg (400 unit) capsule 180 mg PO BID Qty: 60 3RF (DME) Hydrocortisone 2.5%/lidocaine 5% suppository (cmpd) Suppository See Rx Instructions .Route Qty: 42 0RF Rx Instructions: apply to rectum BID Discontinued (DME) Diltiazem 2%/Lidocaine 5% ointment (compound) Ointment See Rx Instructions .Route Qty: 1 0RF Rx Instructions: As directed Referrals / Follow Up: Silvana Ward NP, INSULATION INSPECTOR-C [Primary Care Provider, Medical] Disposition Disposition (needs filled in before D/C Order can be placed): Home, Self Care 06/07/25 1142Madina Foss MD CC: HUMBERTO-C Silvana Ward; Dr. Riley Swann MD ~ Signed [facility]10-09-2025 Progress note [facility] Medical Records Department [address] [place] [address] Progress Note - Surgery 06/07/25 0735 MR#: [id number] Acct: [id number] Name: ELIZABETH BABB Rep #:[id number] : 1975 50 From: Madina Foss MD PCP: Silvana Ward INSULATION INSPECTOR-C Status:ADM I NO Location: [place] AQ710-2 Subjective Subjective Patient tolerating diet. Pain controlled. Objective Data Objective Data Vital Signs: Vital Signs Temp Pulse Resp BP Pulse Ox O2 Del Method O2 Flow Rate 98.9 F 65 15 99/50 L 98 Room Air 2 06/07/25 05:00 06/07/25 05:00 06/07/25 05:00 06/07/25 05:00 06/07/25 05:00 06/07/25 05:00 06/06/25 15:15 Oxygen Flow Rate (L/min) 2 Oxygen Delivery Method Room Air Weight: 237 lb Body Mass Index (BMI) 38.2 Intake & Output: Intake and Output for Last 24 Hours 06/05/25 06/06/25 06/07/25 23:59 23:59 23:59 Intake Total 3077.34 / 3377.34 880.66 / 880.66 Output Total 15 15 Balance 3062.34 / 3362.34 880.66 / 880.66 Lab / Micro Data 06/06/25 05:56 06/06/25 05:56 Labs: Laboratory Results - last 24 hr 06/06/25 05:56: Hemoglobin A1c 6.1 H 06/06/25 12:02: POC Glucose 108 H Physical Exam Const oriented x3 and no apparent distress GI GI Narrative: Left perirectal incision packed with iodoform. Iodoform packing removed at bedside patient tolerated with some pain. Repacked with half-inch iodoform. Assessment & Plan Assessment/Plan (1) Status post incision and drainage: (2) Perirectal abscess: PLAN: Plan Patient tolerated repacking at bedside. Patient's was also taught how to repack once daily x 1 week. Patient will keep her scheduled follow-up appointment also continue on and complete her clindamycin she already has at home p.o. Will DC home. Madina Foss M.D. Pager: [phone] [facility] [address] [place] [address], [facility], [address] [place] [address] Office: [phone] 06/07/25 1139 Cosigner Signature (if applicable): CC: ~ Signed [facility]10-08-2025 Consult note Author Pasquale Lo [facility] Note Date/Time June 06, 2025 3: 13pm [facility] Medical Records Department [address] [place] [address] Anesthesia Postop Eval II 06/06/25 1513 MR#: [id number] Acct: [id number] Name: ELIZABETH BABB Rep #:[id number] : 1975 50 From: Pasquale Leal PCP: MADISYN PhamC Status:ADM I NO Y Race: C Location: [place] [address] Anesthesia Postop Eval I Sum Postop Eval Completion status Anesthesia document: Postop Eval 1 completed: Yes Anesthesia Postop Eval I Summary Anesthesia Postop Eval I Summary: Anesthesia Postop Eval I: Assessment Summary 3 Airway patent Yes 06/06/25 14:05 TOURING PRODUCTION [email or web address] Spontaneous unlabored Yes 06/06/25 14:05 TOURING PRODUCTION [email or web address] respirations Mental status Awake,Calm 06/06/25 14:05 TOURING PRODUCTION MANAGER.[email or web address] nausea No 06/06/25 14:05 TOURING PRODUCTION MANAGER.[email or web address] Vomiting No 06/06/25 14:05 TOURING PRODUCTION MANAGER.[email or web address] Anesthesia Postop Eval I: Fluid Summary Crystalloid volume administer 600 06/06/25 14:05 TOURING PRODUCTION MANAGER.[email or web address] (ml) Colloids volume administered ( ml) Blood Product volume administered (ml) Total IV fluid infused 600 06/06/25 14:05 TOURING PRODUCTION MANAGER.[email or web address] Anesthesia Postop Eval I: Summary Notes Anesthesia Complication No 06/06/25 14:05 TOURING PRODUCTION MANAGER.[email or web address] Anesthesia Complication Comment: Post-operative progress note Anesthesia: Postop Eval II Evaluation Mental status: Awake and Calm Pain Level: 1 nausea: No Vomiting: No Complications Anesthesia Complication: No 06/06/25 151 <Electronically signed by Pasquale Lo MD> Date _ Pasquale Lo MD Cosigner Signature: Date CC: ~ Signed [facility] Work Phone: 1(768) 337-888810-08-2025 Consult note Author Gentry Slater [facility] Note Date/Time June 06, 2025 2: 05pm [facility] Medical Records Department [address] [place] [address] Anesthesia Postop Eval I 06/06/25 1404 MR#: [id number] Acct: [id number] Name: ELIZABETH BABB Rep #:[id number] : 1975 50 From: Gentry Slater CRNA PCP: KENISHA Pham Status:ADM I NO Y Race: C Location: [place] [address] Anesthesia: Postop Eval I Current Vital Signs Temperature: 98.3 F Pulse Rate: 84 Blood Pressure: 129/74 Respiratory Rate: 20 Pulse Ox: 97 Oxygen Delivery Method: Room Air Assessment Airway patent: Yes Spontaneous unlabored respirations: Yes Mental status: Awake and Calm nausea: No Vomiting: No Anesthesia Complication: No Fluid Hydration Crystalloid volume administer (ml): 600 Total IV fluid infused: 600 Progress Note Anesthesia document: Postop Eval 1 completed: Yes 06/06/251404 <Electronically signed by Gentry butt CRNA> Date _ Gentry Slater CRNA Cosigner Signature: Date CC: ~ Signed [facility] Work Phone: 1(913) 407-659810-08-[address] [facility] Medical Records Department [address] [place] [address] Anesthesia Postop Eval II 06/06/25 1513 MR#: [id number] Acct: [id number] Name: ELIZABETH BABB Rep #:[id number] : 1975 50 From: Pasquale Leal PCP: MADISYN PhamC Status:ADM I NO Y Race: C Location: [facility] [id number] -1 Anesthesia Postop Eval I Sum Postop Eval Completion status Anesthesia document: Postop Eval 1 completed: Yes Anesthesia Postop Eval I Summary Anesthesia Postop Eval I Summary: Anesthesia Postop Eval I: Assessment Summary 3 Airway patent Yes 06/06/25 14:05 TOURING PRODUCTION [email or web address] Spontaneous unlabored Yes 06/06/25 14:05 TOURING PRODUCTION MANAGER.[email or web address] respirations Mental status Awake,Calm 06/06/25 14:05 TOURING PRODUCTION MANAGER.[email or web address] nausea No 06/06/25 14:05 TOURING PRODUCTION MANAGER.[email or web address] Vomiting No 06/06/25 14:05 TOURING PRODUCTION [email or web address] Anesthesia Postop Eval I: Fluid Summary Crystalloid volume administer 600 06/06/25 14:05 TOURING PRODUCTION MANAGER.[email or web address] (ml) Colloids volume administered ( ml) Blood Product volume administered (ml) Total IV fluid infused 600 06/06/25 14:05 TOURING PRODUCTION MANAGER.[email or web address] Anesthesia Postop Eval I: Summary Notes Anesthesia Complication No 06/06/25 14:05 TOURING PRODUCTION MANAGER.[email or web address] Anesthesia Complication Comment: Post-operative progress note Anesthesia: Postop Eval II Evaluation Mental status: Awake and Calm Pain Level: 1 nausea: No Vomiting: No Complications Anesthesia Complication: No 06/06/25 1513 > Date _ Pasquale Lo MD Cosigner Signature: Date CC: ~ Signed [facility]10-08-2025 Consult note Author Pasquale Lo [facility] Note Date/Time June 06, 2025 12 :22pm [facility] Medical Records Department [address] [place] [address] [place] [address] Pre-Anesthesia Evaluation 06/06/25 1220 MR#: [id number] Acct: [id number] Name: ELIZABETH BABB Rep #:[id number] : 1975 50 From: Pasquale Leal PCP: KENISHA Pham Status:ADM I NO Y Race: C Location: [place] [id number] -[id number] ASA Classification* ASA Classification ASA Classification: E Assessment & Plan Anesthesia* Anesthesia Assessment Anesthesia Assessment: Discussed sedation and/or anesthesia options, risks, benefits, and alternatives with patient/parents/legal guardian/POA. Questions invited. The patient/parents/legal guardian/POA seems to understand and agrees to proceedwith anesthesia plan. Reviewed the physical assessment, medical history, allergy history and patient home medications list prior to surgery/procedure/anesthetic and documented any changes. Performed airway and anesthesia risk assessments. Anesthesia Type Anesthesia Type: General History Source History Obtained from:: Patient and Chart Anesthesia Focused Assessment* Temperature: 98.5 F Pulse Rate: 65 Blood Pressure: 104/60 Respiratory Rate: 16 Pulse Ox: 93 Oxygen Delivery Method: Room Air Airway Assessment Mouth opens: >3 cm Mallampati Score: II Teeth Condition: Intact Neck Range of motion (ROM): Full ROM Labs Anesthesia Preop lab: CBC WBC, (4.4-11.0) 11.3 K/mm3 H Today, 05:56 RBC, (4.2-5.4) 4.80 M/mm3 Today, 05:56 Hgb, (12.0-15.0) 14.0 g/dL Today, 05:56 Hct, (37-47) 40.9 % Today, 05:56 Plt Count, (150-450) 303 K/mm3 Today, 05:56 CHEMISTRY Potassium, (3.3-5.1) 4.6 mmol/L Today, 05:56 Sodium, (133-145) 137 mmol/L Today, 05:56 Magnesium, (1.6-2.6) 1.7 mg/dL 03/24/22, 15:40 Phosphorus, (2.7-4.5) 3.8 mg/dL 03/09/25, 08:42 BUN, (4-19) 19 mg/dL Today, 05:56 Creatinine, (0.70-1.20) 0.87 mg/dL Today, 05:56 Glucose, (70-99) 148 mg/dL H Today, 05:56 POC Glucose, (74-106) 108 mg/dL H 05/29/25, 12:24 TSH, (0.358-3.740) 1.400 uIU/mL 04/26/24, 08:27 COAG PT, (11.7-14.9) 13.4 SECONDS 08/04/19, 13:54 Pre-Assessment Diagnosis/Proposed Procedure Planned Operative Procedure(s): Incision and drainage of perirectal abscess 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 - transportation engineer: 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 - transportation engineer Hx Hospitalization No 05/28/25 08:28 Any Problems With Anesthesia Yes: nausea 06/06/25 09:01 Cholinesterase deficiency No 06/06/25 09:01 You/Your Family Experience No 06/06/25 09:01 fever (hyperthermia) with Relationship Recent Exposure to Contagious No 06/06/25 09:01 Disease Does patient have nerve No 06/06/25 09:01 stimulator Patient instructed to have No 06/06/25 09:01 device shut off --Does patient have Pacemaker No 06/06/25 09:48 or ICD? When Was Last Pacemaker Check QUESTION #4 FULL TEXT: You/Your Family Experience fever (hyperthermia) with Anesthesia Last Oral Intake Last Oral intake: Last Oral Intake NPO since 00:00 06/06/25 09:48 Meds taken in AM with sips of No 06/06/25 09:48 water? Meds patient instructed to take am of surgery PONV PONV - transportation engineer: PONV - transportation engineer Female HX of Motion Sickness HX of N/V After Surgery Non-Smoker Duration of Surgery greater than 60 minutes Number of Risk Factors PONV Score Height & Weight Height & Weight: Anesthesia: Height & Weight Height 5 ft 6 in 06/06/25 09:48 Weight: 107.501 kg 06/06/25 09:48 Body Mass Index (BMI) 38.2 06/06/25 09:48 Respiratory Assessment Respiratory Assessment - transportation engineer: Respiratory Tract Infection Hx - transportation engineer Hx Respiratory Tract Infection No 06/06/25 09:01 STOP Sleep Apnea STOP Sleep Apnea - transportation engineer: STOP Sleep Apnea - transportation engineer Hx Hypertension Yes 06/06/25 08:54 Hx Sleep Apnea No 06/06/25 08:54 CPAP No 06/06/25 08:54 BIPAP No 06/06/25 08:54 Do you snore loudly (louder No 06/06/25 08:54 than talking or can be heard Do you often feel tired/ No 06/06/25 08:54 fatigued/ sleepy during daytime? Has anyone observed you stop No 06/06/25 08:54 breathing during sleep? STOP Results Negative 06/06/25 08:54 QUESTION #5 FULL TEXT : Do you snore loudly (louder than talking or can be heard through closed doors)? Tobacco Use History Tobacco Use History - transportation engineer: Tobacco Use History - transportation engineer Tobacco Use Smoking Status Never smoker 06/06/25 08:54 Hx Tobacco Use No 06/06/25 08:54 Years Smoking Packs Smoked per Day Smoking Cessation Date was within the last 15 years Hx Smoking Cessation Date Hx Smoking Cessation Counseling Hematologic Medial History Hematologic Hx - transportation engineer: Hematologic Medical Hx - body cleaner Hx of Blood Transfusion No 06/06/25 08:54 Hx of Transfusion in last 3 No 06/06/25 08:54 Months Date of Last Transfusion (if within last 3 months) Ever experience any problems No 06/06/25 08:54 with transfusion(s)? Specify any problems Hx of Preganancy in last 3 N/A 06/06/25 08:54 Months Nurse Filling Out Transfusion TWOLF 06/06/25 08:54 & Questions: Date: 06/06/25 06/06/25 08:54 Time: 08:57 06/06/25 08:54 Patient unable to answer at this time (ie. confused, unrespo /Reproduction History /Reproductive History - transportation engineer: /Reproductive Hx- transportation engineer Hx Now No 06/06/25 09:01 Gestational Age (in weeks): EDC: Hx Hx Para Hx Section SAB No 06/06/25 09:01 Active Medications Active Medications: Current Medications Generic Name Dose Route Start Last Admin Trade Name Freq PRN Reason Stop Dose Admin Acetaminophen 1,000 mg 06/06/25 14:00 Acetaminophen 500 Mg Tablet PO Q8 HAROON Sodium Chloride 1,000 mls @ 100 mls/hr 06/06/25 08:43 06/06/25 11:58 IV 0 mls/hr .Q10H HAROON Infusion Clindamycin Phosphate 300 mg/ 52 mls @ 150 mls/hr 06/06/25 09:00 06/06/25 09:44 Dextrose IV Infused Q6 HAROON Infusion Sodium Chloride 250 mls @ 15 mls/hr 06/06/25 09:00 IV .[id number] PRN Saline Flush Sodium Chloride 250 mls @ 15 mls/hr 06/06/25 09:00 IV .[id number] PRN Additional IVPB Infusion Lactated Ringer's 1,000 mls @ 15 mls/hr 06/06/25 11:45 06/06/25 12:06 IV 15 mls/hr .Q48H HAROON Administration Morphine Sulfate 2 - 4 mg 06/06/25 08:43 06/06/25 09:18 Morphine 2 Mg/Ml Syringe IV 2 mg Q3H PRN PRN Administration Pain Score 6-10 Ondansetron HCl 4 mg 06/06/25 08:43 Ondansetron 4 Mg/2 Ml Vial IV Q8H PRN PRN NAUSEA/VOMITING Oxycodone HCl 5 mg 06/06/25 08:43 Oxycodone 5 Mg Tablet PO Q4H PRN PRN Pain Score 4-10 Sodium Chloride 10 - 40 ml 06/06/25 09:00 06/06/25 09:22 0.9% Saline Lock 10 Ml Syringe IV 10 ml UD PRN Administration SALINE FLUSH PFSH Medical History Normal Holter exam Anal fissure Effusion, left knee Diabetes Restless legs Shortness of breath on exertion Leg cramps Cardiology follow-up encounter History of echocardiogram History of stress test Nonrheumatic mitral valve disorder Fatty liver Wears glasses Depression Anxiety Back pain Non-smoker History of edema Hypertension Labral tear of right hip joint Segmental and somatic dysfunction of pelvic region Segmental and somatic dysfunction of lumbar region Segmental and somatic dysfunction of thoracic region Segmental and somatic dysfunction of cervical region Home Medications ?Medication ?Instructions ?Recorded ?Last Taken ?Type sertraline 100 mg tablet 100 mg PO QHS mental health 08/30/17 05/28/25 History lisinopril 10 mg tablet 10 mg PO QHS blood pressure 12/14/17 05/28/25 History metformin 500 mg tablet,extended 500 mg PO BID 4 05/28/25 History release 24 hr vitamin E (dl, acetate) 180 mg 180 mg PO BID #60 caps 06/06/24 Unknown Rx (400 unit) capsule Diltiazem 2% / Lidocaine 5% #1 ea 11/09/24 Unknown Rx ointment (compound) (Diltiazem 2%/Lidocaine 5% ointment (compound)) Hydrocortisone 2.5%/lidocaine 5% #42 ea 11/10/24 Unkno wn Rx suppository (cmpd) cholecalciferol (vitamin D3) 125 125 mcg PO DAILY 05/24 Unknown History mcg (5,000 unit) tablet (Vitamin D3) magnesium 250 mg tablet 250 mg PO DAILY 03/07/25 Unk nown History clindamycin HCl 300 mg capsule 300 mg PO TID 7 days #2 1 caps 06/04/25 Unknown Rx (Cleocin HCl) Allergy/AdvReac Type Severity Reaction Status Date / Time latex Allergy Swelling, Verified 06/06/25 05:31 itching Penicillins (PCN) Allergy other Verified 06/06/25 05:31 Sulfa (Sulfonamide Allergy Hives, Verified 06/06/25 05:31 Antibiotics) welts Family History Mother Hypertension Thyroid disorder Depression Rheumatoid arthritis Grandmother Parkinsons disease Surgical History Hx of knee surgery Hx of cystoscopy History of adenoidectomy History of laparoscopic appendectomy (~09/03/21) History of History of lithotripsy History of tonsillectomy History of colonoscopy (~2015) History of hysterectomy (~2011) History of cholecystectomy (~2001) Social History household members: spouse and children housing: house number of children: 3 current occupational status: employed pets and animals: Yes Smoking Status: Never smoker alcohol intake: never substance use type: does not use caffeine: Yes (occasional) what type of physical activity do you participate in: none seatbelt use: always do you feel safe at home: Yes Review of Systems (Anesthesia) ROS Narrative System reviewed and no additional complaints, except as documented. 06/06/25 1222 <Electronically signed by Pasquale Lo MD> Date _ Pasquale Lo MD Cosigner Signature: Date CC: ~ Signed [facility] Work Phone: [phone]) 413-390810-08-2025 Procedure note [facility] Medical Records Department [address] [place] [address] Operative Report 06/06/25 1404 MR#: [id number] Acct: [id number] Name: ELIZABETH BABB Rep #:[id number] : 1975 50 From: Riley Swann MD PCP: KENISHA Pham Status:ADM I NO Location: [facility] [place] [id number] Procedures Digestive [id number]-49xxx: [id number] Incision of rectal abscess Operative Report (Standard) Operative Information Date of Procedure: 06/06/25 Pre-Operative Diagnosis: left side perirectal abscess Post-Operative Diagnosis: Same Surgery/Procedure Performed: Incision and drainage of left sided perirectal abscess tax accounting manager: No Type of Anesthesia: General and Local RN Documented Start/Stop Times: Operation Date: 06/06/25 13:00 Case Time Into Pre-Op 06/06/25 11:40 Anesthesia Start 06/06/25 13:13 Into Room 06/06/25 13:13 Procedure Start 06/06/25 13:33 Procedure End 06/06/25 13:56 Anesthesia End 06/06/25 13:59 Out of Room 06/06/25 13:59 Procedure Start Time: 13:33 Procedure Stop Time: 13:56 Select all DRAINS/GRAFTS/IMPLANTS that apply: Drains Drain details: Half-inch iodoform gauze packedinto wound Estimated Blood Loss: 15 mL Specimen collected: No Description of surgery: The patient is a 50-year-old female status post a recent 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 This was performed about a week ago. She initially was doing well following the surgery but then developedpain as well as some fevers and chills. I saw the patient in the office on Wednesday she had a small amount of purulent tinged drainage but no obvious abscesswas appreciatedat that time. I placed her on antibiotics and recommend that she contact me should this not improve. She presented to the emergency department overnight with pain. I had the ER staff do a CT scan forfurther evaluation. A 4 cm abscess was encountered. I saw the patient the emergency department and r ecommended drainage in the operating room. We discussed the details of the planned procedure and she wished to proceed. She was brought to the operating room today following informed consent. Preoperative antibiotics were given and a timeout was performed. She was placedsupine spine on the operative table with legs placed in a modified lithotomy position after general anesthesia was induced. The area was then prepped and draped in the usual sterile manner. Local anesthetic was injected into the vicinity. The abscess was already draining somewhat through the skin. This wasinjected with local anesthetic and then a15 blade was then used to make a cruciate incision. Upon doing so, copious amount of purulent drainage was able to be expressed. This was suctioned out. The abscess cavity was manually deloculated. The abscess cavity was then copiously irrigated with saline. Hemostasis was very good. The wound was then packed with half-inch iodoform gauze.. Local anesthetic was then injected in a bilateral pudendal block manner. A gauze dressing and mesh panties were applied. She was awake from anesthesia and taken to recovery in good condition Surgical Findings: Left-sided perirectal abscess Complications Complications: No Admit VTE Documentation VTE Present on Admission: No VTE Mechan Device Prophylaxis: SCD's VTE Pharm Prophylaxis ordered?: No Reason prophylaxis not ordered: Treatment Not Indicated 06/06/25 1411 Cosigner Signature (if applicable): CC: KENISHA Ward; Dr. Riley Swann MD~ Signed [facility]10-08-[address] [facility] Medical Records Department [address] [place] [address] Anesthesia Postop Eval I 06/06/25 1404 MR#: [id number] Acct: [id number] Name: ELIZABETH BABB Rep #:[id number] : 1975 50 From: Gentry Slater CRNA PCP: KENISHA Pham Status:ADM I NO Y Race: C Location: [place] [address] Anesthesia: Postop Eval I Current Vital Signs Temperature: 98.3 F Pulse Rate: 84 Blood Pressure: 129/74 Respiratory Rate: 20 Pulse Ox: 97 Oxygen Delivery Method: Room Air Assessment Airway patent: Yes Spontaneous unlabored respirations: Yes Mental status: Awake and Calm nausea: No Vomiting: No Anesthesia Complication: No Fluid Hydration Crystalloid volume administer (ml): 600 Total IV fluid infused: 600 Progress Note Anesthesia document: Postop Eval 1 completed: Yes 06/06/25 1405 y TOURING PRODUCTION MANAGER> Date _ Gentry Slater CRNA Cosigner Signature: Date CC: ~ Signed [facility]10-08-2025 History and physical note Author Riley Swann [facility] Note Date/Time June 06, 2025 10 :[address] Medical Records Department [address] [place] [address] History & Physical Exam 06/06/25 1048 MR#: [id number] Acct: [id number] Name: ELIZABETH BABB Rep #:[id number] : 1975 50 From: Riley Swann MD PCP: KENISHA Pham Status:ADM I NO Location: [place] [id number] HPI - General General Date of Admission: 06/06/25 Date of Service: 06/06/25 Chief Complaint: Perirectal abscess HPI Narrative ELIZABETH BABB, is a 50 F who underwent a lateral internal sphincterotomy performed by me about a week ago for a very symptomatic chronic anal fissure. Her surgery was uneventful and she did well initially. She contacted our officeon Wednesday stating that she had some pain and some drainage over the weekend. I suspected that she may have developed a small wound infection. I did place her on antibiotics and recommend that she contact my office if this did not improve. She presented to the emergency department overnight with worsening pain and subjective fevers and chills. Clinically the ER staff appreciated an abscess. I was contacted and recommended a CT scan for further evaluation. CT scan showed a 4.7 x 2.5 cm abscess. I recommended admission and intraoperative drainage. [facility] Medical History Normal Holter exam Anal fissure Effusion, left knee Diabetes Restless legs Shortness of breath on exertion Leg cramps Cardiology follow-up encounter History of echocardiogram History of stress test Nonrheumatic mitral valve disorder Fatty liver Wears glasses Depression Anxiety Back pain Non-smoker History of edema Hypertension Labral tear of right hip joint Segmental and somatic dysfunction of pelvic region Segmental and somatic dysfunction of lumbar region Segmental and somatic dysfunction of thoracic region Segmental and somatic dysfunction of cervical region Home Medications ?Medication ?Instructions ?Recorded ?Last Taken ?Type sertraline 100 mg tablet 100 mg PO QHS mental health 08/30/17 05/28/25 History lisinopril 10 mg tablet 10 mg PO QHS blood pressure 12/14/17 05/28/25 History metformin 500 mg tablet,extended 500 mg PO BID 4 05/28/25 History release 24 hr vitamin E (dl, acetate) 180 mg 180 mg PO BID #60 caps 06/06/24 Unknown Rx (400 unit) capsule Diltiazem 2% / Lidocaine 5% #1 ea 11/09/24 Unknown Rx ointment (compound) (Diltiazem 2%/Lidocaine 5% ointment (compound)) Hydrocortisone 2.5%/lidocaine 5% #42 ea 11/10/24 Unkno wn Rx suppository (cmpd) cholecalciferol (vitamin D3) 125 125 mcg PO DAILY 05/24 Unknown History mcg (5,000 unit) tablet (Vitamin D3) magnesium 250 mg tablet 250 mg PO DAILY 03/07/25 Unk nown History clindamycin HCl 300 mg capsule 300 mg PO TID 7 days #2 1 caps 06/04/25 Unknown Rx (Cleocin HCl) Allergy/AdvReac Type Severity Reaction Status Date / Time latex Allergy Swelling, Verified 06/06/25 05:31 itching Penicillins (PCN) Allergy other Verified 06/06/25 05:31 Sulfa (Sulfonamide Allergy Hives, Verified 06/06/25 05:31 Antibiotics) welts Family History Mother Hypertension Thyroid disorder Depression Rheumatoid arthritis Grandmother Parkinsons disease Surgical History Hx of knee surgery Hx of cystoscopy History of adenoidectomy History of laparoscopic appendectomy (~09/03/21) History of History of lithotripsy History of tonsillectomy History of colonoscopy (~2015) History of hysterectomy (~2011) History of cholecystectomy (~2001) Social History household members: spouse and children housing: house number of children: 3 current occupational status: employed pets and animals: Yes Smoking Status: Never smoker alcohol intake: never substance use type: does not use caffeine: Yes (occasional) what type of physical activity do you participate in: none seatbelt use: always do you feel safe at home: Yes Vital Signs Vital Signs Vital Signs: 06/06/25 05:31 06/06/25 05:47 06/06/25 07:31 Temperature 98.2 F 98.2 F 98.7 F Temperature Source Oral Oral Oral Pulse Rate 95 95 82 Pulse Strength Respiratory Rate 18 18 16 Respiratory Effort Respiratory Depth Respiratory Pattern Blood Pressure 135/65 H 135/65 H 122/76 H Blood Pressure Mean 88 88 91 Blood Pressure Source Blood Pressure Position Blood Pressure Location Pulse Ox 96 96 95 Oxygen Delivery Method Room Air Room Air Room Air 06/06/25 08:29 06/06/25 09:04 06/06/25 09:04 Temperature 98.1 F Temperature Source Pulse Rate 75 Pulse Strength Normal (2+) Respiratory Rate 16 Respiratory Effort Normal Respiratory Depth Normal Respiratory Pattern Normal Blood Pressure 116/64 Blood Pressure Mean 81 Blood Pressure Source Blood Pressure Position Blood Pressure Location Pulse Ox 94 Oxygen Delivery Method Room Air 06/06/25 09:04 Temperature 98.7 F Temperature Source Oral Pulse Rate 81 Pulse Strength Respiratory Rate 16 Respiratory Effort Respiratory Depth Respiratory Pattern Blood Pressure 115/62 Blood Pressure Mean 79 Blood Pressure Source Monitor Blood Pressure Position Semi-Fowlers Blood Pressure Location Left Arm Pulse Ox 98 Oxygen Delivery Method Room Air Weight Weight: 237 lb Body Mass Index (BMI) 38.2 Physical Exam Const alert, oriented x3 and healthy appearing General Appearance: cooperative HEENT normocephalic Eyes PERRL GI GI Narrative: Examination of the perianal area clearly exhibits findings consistent with a abscess. This was a significant change compared to her office exam on Wednesday. There was some purulent drainage present. There was tenderness to palpation. Results Lab / Micro Data 06/06/25 05:56 06/06/25 05:56 Labs: Laboratory Results - last 24 hr 06/06/25 05:56: WBC 11.3 H, RBC 4.80, Hgb 14.0, Hct 40.9, MCV 85.2, MCH 29.2, MCHC 34.2, RDW Std Deviation 35.9, RDW Coeff of Karla 11.7, Plt Count 303, MPV 9.4, Immature Gran % (Auto) 0.500, Neut % (Auto) 75.2 H, Lymph % (Auto) 14.3 L, [place] % (Auto) 7.7, Eos % (Auto) 1.9, Baso % (Auto) 0.4, Absolute Neuts (auto) 8.5 H, Absolute Lymphs (auto) 1.62, Nucleated RBC % 0, Sodium 137, Potassium 4.6, Chloride 101, Carbon Dioxide 23.7, Anion Gap 12, BUN 19, Creatinine 0.87, Estim Creat Clear Calc 96.60, Est GFR (MDRD) Non-Af 81, BUN/Creatinine Ratio 21.5 H, Glucose 148 H, Lactic Acid 1.4, Calcium 9.8 Imaging Radiology Impression Pelvis CT 06/06/25 05:50 IMPRESSION: Immediately caudal and abutting the left posterolateral aspect of the anus is a developing abscess. It is seen along the medial aspect of the gluteal fold with dimensions above. See above description. Reading Location: [id number] Assessment & Plan Assessment/Plan (1) Perirectal abscess: PLAN: Plan The patient is a 50-year-old female status post a recent lateral internal sphincterotomy surgery for a chronic anal fissure. Unfortunately she has developed a perirectal abscess/wound infection. I have recommended admission and operative drainage. She is in agreement with this plan. We discussed the details of the planned procedure and she wishes to proceed. This will occur sometime this afternoon once an OR becomes available 06/06/25 1053 <Electronically signed by Riley Swann MD> Cosigner Signature (if applicable): CC: KENISHA Ward; Dr. Riley Swann MD~ Signed [facility] Work Phone: [phone] [facility] Medical Records Department [address] [place] [address] Pre-Anesthesia Evaluation 06/06/25 1220 MR#: [id number] Acct: [id number] Name: ELIZABETH BABB Rep #:[id number] : 1975 50 From: Pasquale Leal PCP: KENISHA Pham Status:ADM I NO Y Race: C Location: [facility] [place] [id number] -[id number] ASA Classification* ASA Classification ASA Classification: E Assessment & Plan Anesthesia* Anesthesia Assessment Anesthesia Assessment: Discussed sedation and/or anesthesia options, risks, benefits, and alternatives with patient/parents/legal guardian/POA. Questions invited. The patient/parents/legal guardian/POA seems to understand and agrees to proceedwith anesthesia plan. Reviewed the physical assessment, medical history, allergy history and patient home medications list prior to surgery/procedure/anesthetic and documented any changes. Performed airway and anesthesia risk assessments. Anesthesia Type Anesthesia Type: General History Source History Obtained from:: Patient and Chart Anesthesia Focused Assessment* Temperature: 98.5 F Pulse Rate: 65 Blood Pressure: 104/60 Respiratory Rate: 16 Pulse Ox: 93 Oxygen Delivery Method: Room Air Airway Assessment Mouth opens: >3 cm Mallampati Score: II Teeth Condition: Intact Neck Range of motion (ROM): Full ROM Labs Anesthesia Preop lab: CBC WBC, (4.4-11.0) 11.3 K/mm3 H Today, 05:56 RBC, (4.2-5.4) 4.80 M/mm3 Today, 05:56 Hgb, (12.0-15.0) 14.0 g/dL Today, 05:56 Hct, (37-47) 40.9 % Today, 05:56 Plt Count, (150-450) 303 K/mm3 Today, 05:56 CHEMISTRY Potassium, (3.3-5.1) 4.6 mmol/L Today, 05:56 Sodium, (133-145) 137 mmol/L Today, 05:56 Magnesium, (1.6-2.6) 1.7 mg/dL 03/24/22, 15:40 Phosphorus, (2.7-4.5) 3.8 mg/dL 03/09/25, 08:42 BUN, (4-19) 19 mg/dL Today, 05:56 Creatinine, (0.70-1.20) 0.87 mg/dL Today, 05:56 Glucose, (70-99) 148 mg/dL H Today, 05:56 POC Glucose, (74-106) 108 mg/dL H 05/29/25, 12:24 TSH, (0.358-3.740) 1.400 uIU/mL 04/26/24, 08:27 COAG PT, (11.7-14.9) 13.4 SECONDS 08/04/19, 13:54 Pre-Assessment Diagnosis/Proposed Procedure Planned Operative Procedure(s): Incision and drainage of perirectal abscess 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 - transportation engineer: 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 - transportation engineer Hx Hospitalization No 05/28/25 08:28 Any Problems With Anesthesia Yes: nausea 06/06/25 09:01 Cholinesterase deficiency No 06/06/25 09:01 You/Your Family Experience No 06/06/25 09:01 fever (hyperthermia) with Relationship Recent Exposure to Contagious No 06/06/25 09:01 Disease Does patient have nerve No 06/06/25 09:01 stimulator Patient instructed to have No 06/06/25 09:01 device shut off --Does patient have Pacemaker No 06/06/25 09:48 or ICD? When Was Last Pacemaker Check QUESTION #4 FULL TEXT: You/Your Family Experience fever (hyperthermia) with Anesthesia Last Oral Intake Last Oral intake: Last Oral Intake NPO since 00:00 06/06/25 09:48 Meds taken in AM with sips of No 06/06/25 09:48 water? Meds patient instructed to take am of surgery PONV PONV - transportation engineer: PONV - transportation engineer Female HX of Motion Sickness HX of N/V After Surgery Non-Smoker Duration of Surgery greater than 60 minutes Number of Risk Factors PONV Score Height & Weight Height & Weight: Anesthesia: Height & Weight Height 5 ft 6 in 06/06/25 09:48 Weight: 107.501 kg 06/06/25 09:48 Body Mass Index (BMI) 38.2 06/06/25 09:48 Respiratory Assessment Respiratory Assessment - transportation engineer: Respiratory Tract Infection Hx - transportation engineer Hx Respiratory Tract Infection No 06/06/25 09:01 STOP Sleep Apnea STOP Sleep Apnea - transportation engineer: STOP Sleep Apnea - transportation engineer Hx Hypertension Yes 06/06/25 08:54 Hx Sleep Apnea No 06/06/25 08:54 CPAP No 06/06/25 08:54 BIPAP No 06/06/25 08:54 Do you snore loudly (louder No 06/06/25 08:54 than talking or can be heard Do you often feel tired/ No 06/06/25 08:54 fatigued/ sleepy during daytime? Has anyone observed you stop No 06/06/25 08:54 breathing during sleep? STOP Results Negative 06/06/25 08:54 QUESTION #5 FULL TEXT : Do you snore loudly (louder than talking or can be heard through closeddoors)? Tobacco Use History Tobacco Use History - transportation engineer: Tobacco Use History - transportation engineer Tobacco Use Smoking Status Never smoker 06/06/25 08:54 Hx Tobacco Use No 06/06/25 08:54 Years Smoking Packs Smoked per Day Smoking Cessation Date was within the last 15 years Hx Smoking Cessation Date Hx Smoking Cessation Counseling Hematologic Medial History Hematologic Hx - transportation engineer: Hematologic Medical Hx - body cleaner Hx of Blood Transfusion No 06/06/25 08:54 Hx of Transfusion in last 3 No 06/06/25 08:54 Months Date of Last Transfusion (if within last 3 months) Ever experience any problems No 06/06/25 08:54 with transfusion(s)? Specify any problems Hx of Preganancy in last 3 N/A 06/06/25 08:54 Months Nurse Filling Out Transfusion TWOLF 06/06/25 08:54 & Questions: Date: 06/06/25 06/06/25 08:54 Time: 08:57 06/06/25 08:54 Patient unable to answer at this time (ie. confused, unrespo /Reproduction History /Reproductive History - transportation engineer: /Reproductive Hx- transportation engineer Hx Now No 06/06/25 09:01 Gestational Age (in weeks): EDC: Hx Hx Para Hx Section SAB No 06/06/25 09:01 Active Medications Active Medications: Current Medications Generic Name Dose Route Start Last Admin Trade Name Freq PRN Reason Stop Dose Admin Acetaminophen 1,000 mg 06/06/25 14:00 Acetaminophen 500 Mg Tablet PO Q8 HAROON Sodium Chloride 1,000 mls @ 100 mls/hr 06/06/25 08:43 06/06/25 11:58 IV 0 mls/hr .Q10H HAROON Infusion Clindamycin Phosphate 300 mg/ 52 mls @ 150 mls/hr 06/06/25 09:00 06/06/25 09:44 Dextrose IV Infused Q6 HAROON Infusion Sodium Chloride 250 mls @ 15 mls/hr 06/06/25 09:00 IV .[id number] PRN Saline Flush Sodium Chloride 250 mls @ 15 mls/hr 06/06/25 09:00 IV .[id number] PRN Additional IVPB Infusion Lactated Ringer's 1,000 mls @ 15 mls/hr 06/06/25 11:45 06/06/25 12:06 IV 15 mls/hr .Q48H HAROON Administration Morphine Sulfate 2 - 4 mg 06/06/25 08:43 06/06/25 09:18 Morphine 2 Mg/Ml Syringe IV 2 mg Q3H PRN PRN Administration Pain Score 6-10 Ondansetron HCl 4 mg 06/06/25 08:43 Ondansetron 4 Mg/2 Ml Vial IV Q8H PRN PRN NAUSEA/VOMITING Oxycodone HCl 5 mg 06/06/25 08:43 Oxycodone 5 Mg Tablet PO Q4H PRN PRN Pain Score 4-10 Sodium Chloride 10 - 40 ml 06/06/25 09:00 06/06/25 09:22 0.9% Saline Lock 10 Ml Syringe IV 10 ml UD PRN Administration [facility] Medical History Normal Holter exam Anal fissure Effusion, left knee Diabetes Restless legs Shortness of breath on exertion Leg cramps Cardiology follow-up encounter History of echocardiogram History of stress test Nonrheumatic mitral valve disorder Fatty liver Wears glasses Depression Anxiety Back pain Non-smoker History of edema Hypertension Labral tear of right hip joint Segmental and somatic dysfunction of pelvic region Segmental and somatic dysfunction of lumbar region Segmental and somatic dysfunction of thoracic region Segmental and somatic dysfunction of cervical region Home Medications ?Medication ?Instructions ?Recorded ?Last Taken ?Type sertraline 100 mg tablet 100 mg PO QHS mental health 08/30/17 05/28/25 History lisinopril 10 mg tablet 10 mg PO QHS blood pressure 12/14/17 05/28/25 History metformin 500 mg tablet,extended 500 mg PO BID 4 05/28/25 History release 24 hr vitamin E (dl, acetate) 180 mg 180 mg PO BID #60 caps 06/06/24 Unknown Rx (400 unit) capsule Diltiazem 2% / Lidocaine 5% #1 ea 11/09/24 Unknown Rx ointment (compound) (Diltiazem 2%/Lidocaine 5% ointment (compound)) Hydrocortisone 2.5%/lidocaine 5% #42 ea 11/10/24 Unkno wn Rx suppository (cmpd) cholecalciferol (vitamin D3) 125 125 mcg PO DAILY 05/24 Unknown History mcg (5,000 unit) tablet (Vitamin D3) magnesium 250 mg tablet 250 mg PO DAILY 03/07/25 Unk nown History clindamycin HCl 300 mg capsule 300 mg PO TID 7 days #2 1 caps 06/04/25 Unknown Rx (Cleocin HCl) Allergy/AdvReac Type Severity Reaction Status Date / Time latex Allergy Swelling, Verified 06/06/25 05:31 itching Penicillins (PCN) Allergy other Verified 06/06/25 05:31 Sulfa (Sulfonamide Allergy Hives, Verified 06/06/25 05:31 Antibiotics) welts Family History Mother Hypertension Thyroid disorder Depression Rheumatoid arthritis Grandmother Parkinsons disease Surgical History Hx of knee surgery Hx of cystoscopy History of adenoidectomy History of laparoscopic appendectomy (~09/03/21) History of History of lithotripsy History of tonsillectomy History of colonoscopy (~2015) History of hysterectomy (~2011) History of cholecystectomy (~2001) Social History household members: spouse and children housing: house number of children: 3 current occupational status: employed pets and animals: Yes Smoking Status: Never smoker alcohol intake: never substance use type: does not use caffeine: Yes (occasional) what type of physical activity do you participate in: none seatbelt use: always do you feel safe at home: Yes Review of Systems (Anesthesia) ROS Narrative System reviewed and no additional complaints, except as documented. 06/06/25 1222 MD> Date _ Pasquale Lo MD Cosigner Signature: Date CC: ~ Signed [facility]10-08-2025 History and physical note [facility] Medical Records Department [address] [place] [id number] History & Physical Exam 06/06/25 1048 MR#: [id number] Acct: [id number] Name: ELIZABETH BABB Rep #:[id number] : 1975 50 From: Riley Swann MD PCP: Silvana Ward NP-C Status:ADM I NO Location: [facility] [place] [id number] HPI - General General Date of Admission: 06/06/25 Date of Service: 06/06/25 Chief Complaint: Perirectal abscess HPI Narrative ELIZABETH BABB, is a 50 F who underwent a lateral internal sphincterotomy performed by me about aweek ago for a very symptomatic chronic anal fissure. Her surgery was uneventful and she did well initially. She contacted our officeon Wednesday stating that she had some pain and some drainage over the weekend. I suspected that she may have developed a small wound infection. I did place her on antibiotics and recommend that she contact my office if this did not improve. She presented to the emergency department overnight with worsening pain and subjective fevers and chills. Clinically the ER staff appreciated an abscess. I was contacted and recommended a CT scan for further evaluation. CT scanshowed a 4.7 x 2.5 cm abscess. I recommended admission and intraoperative drainage. [facility] Medical History Normal Holter exam Anal fissure Effusion, left knee Diabetes Restless legs Shortness of breath on exertion Leg cramps Cardiology follow-up encounter History of echocardiogram History of stress test Nonrheumatic mitral valve disorder Fatty liver Wears glasses Depression Anxiety Back pain Non-smoker History of edema Hypertension Labral tear of right hip joint Segmental and somatic dysfunction of pelvic region Segmental and somatic dysfunction of lumbar region Segmental and somatic dysfunction of thoracic region Segmental and somatic dysfunction of cervical region Home Medications ?Medication ?Instructions ?Recorded ?Last Taken ?Type sertraline 100 mg tablet 100 mg PO QHS mental health 08/30/17 05/28/25 History lisinopril 10 mg tablet 10 mg PO QHS blood pressure 12/14/17 05/28/25 History metformin 500 mg tablet,extended 500 mg PO BID 4 05/28/25 History release 24 hr vitamin E (dl, acetate) 180 mg 180 mg PO BID #60 caps 06/06/24 Unknown Rx (400 unit) capsule Diltiazem 2% / Lidocaine 5% #1 ea 11/09/24 Unknown Rx ointment (compound) (Diltiazem 2%/Lidocaine 5% ointment (compound)) Hydrocortisone 2.5%/lidocaine 5% #42 ea 11/10/24 Unkno wn Rx suppository (cmpd) cholecalciferol (vitamin D3) 125 125 mcg PO DAILY 05/24 Unknown History mcg (5,000 unit) tablet (Vitamin D3) magnesium 250 mg tablet 250 mg PO DAILY 03/07/25 Unk nown History clindamycin HCl 300 mg capsule 300 mg PO TID 7 days #2 1 caps 06/04/25 Unknown Rx (Cleocin HCl) Allergy/AdvReac Type Severity Reaction Status Date / Time latex Allergy Swelling, Verified 06/06/25 05:31 itching Penicillins (PCN) Allergy other Verified 06/06/25 05:31 Sulfa (Sulfonamide Allergy Hives, Verified 06/06/25 05:31 Antibiotics) welts Family History Mother Hypertension Thyroid disorder Depression Rheumatoid arthritis Grandmother Parkinsons disease Surgical History Hx of knee surgery Hx of cystoscopy History of adenoidectomy History of laparoscopic appendectomy (~09/03/21) History of History of lithotripsy History of tonsillectomy History of colonoscopy (~2015) History of hysterectomy (~2011) History of cholecystectomy (~2001) Social History household members: spouse and children housing: house number of children: 3 current occupational status: employed pets and animals: Yes Smoking Status: Never smoker alcohol intake: never substance use type: does not use caffeine: Yes (occasional) what type of physical activity do you participate in: none seatbelt use: always do you feel safe at home: Yes Vital Signs Vital Signs Vital Signs: 06/06/25 05:31 06/06/25 05:47 06/06/25 07:31 Temperature 98.2 F 98.2 F 98.7 F Temperature Source Oral Oral Oral Pulse Rate 95 95 82 Pulse Strength Respiratory Rate 18 18 16 Respiratory Effort Respiratory Depth Respiratory Pattern Blood Pressure 135/65 H 135/65 H 122/76 H Blood Pressure Mean 88 88 91 Blood Pressure Source Blood Pressure Position Blood Pressure Location Pulse Ox 96 96 95 Oxygen Delivery Method Room Air Room Air Room Air 06/06/25 08:29 06/06/25 09:04 06/06/25 09:04 Temperature 98.1 F Temperature Source Pulse Rate 75 Pulse Strength Normal (2+) Respiratory Rate 16 Respiratory Effort Normal Respiratory Depth Normal Respiratory Pattern Normal Blood Pressure 116/64 Blood Pressure Mean 81 Blood Pressure Source Blood Pressure Position Blood Pressure Location Pulse Ox 94 Oxygen Delivery Method Room Air 06/06/25 09:04 Temperature 98.7 F Temperature Source Oral Pulse Rate 81 Pulse Strength Respiratory Rate 16 Respiratory Effort Respiratory Depth Respiratory Pattern Blood Pressure 115/62 Blood Pressure Mean 79 Blood Pressure Source Monitor Blood Pressure Position Semi-Fowlers Blood Pressure Location Left Arm Pulse Ox 98 Oxygen Delivery Method Room Air Weight Weight: 237 lb Body Mass Index (BMI) 38.2 Physical Exam Const alert, oriented x3 and healthy appearing General Appearance: cooperative HEENT normocephalic Eyes PERRL GI GI Narrative: Examination of the perianal area clearly exhibits findings consistent with a abscess. This was a significant change compared to her office exam on Wednesday. There was some purulent drainage present. There was tenderness to palpation. Results Lab / Micro Data 06/06/25 05:56 06/06/25 05:56 Labs: Laboratory Results - last 24 hr 06/06/25 05:56: WBC 11.3 H, RBC 4.80, Hgb 14.0, Hct 40.9, MCV 85.2, MCH 29.2, MCHC 34.2, RDW Std Deviation 35.9, RDW Coeff of Karla 11.7, Plt Count 303, MPV 9.4, Immature Gran % (Auto) 0.500, Neut % (Auto) 75.2 H, Lymph % (Auto) 14.3 L, Summit % (Auto) 7.7, Eos % (Auto) 1.9, Baso % (Auto) 0.4, AbsoluteNeuts (auto) 8.5 H, Absolute Lymphs (auto) 1.62, Nucleated RBC % 0, Sodium 137, Potassium 4.6, Chloride 101, Carbon Dioxide 23.7, Anion Gap 12, BUN 19, Creatinine 0.87, Estim Creat Clear Calc 96.60, Est GFR (MDRD) Non-Af 81, BUN/Creatinine Ratio 21.5 H, Glucose 148 H, Lactic Acid 1.4, Calcium 9.8 Imaging Radiology Impression Pelvis CT 06/06/25 05:50 IMPRESSION: Immediately caudal and abutting the left posterolateral aspect of the anus is a developing abscess.It is seen along the medial aspect of the gluteal fold with dimensions above. See above description. 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 Unfortunately she has developed a perirectal abscess/wound infection. I have recommended admission and operative drainage. She is in agreement with this plan. We discussed the details of the planned procedure and she wishes to proceed. This will occur sometime this afternoon once an OR becomes available 06/06/25 1053 Cosigner Signature (if applicable): CC: KENISHA Ward; Dr. Riley Swann MD~ Signed [facility]10-08-2025 [facility] Medical Records Department [address] [place] [address] History Physical Exam 06/06/25 1048 MR#: [id number] Acct: [id number] Name: ELIZABETH BABB Rep #: [id number] : 1975 50 From: Riley Swann MD PCP: KENISHA Pham Status:ADM VALERIE Location: [place] [id number] HPI - General General Date of Admission: 06/06/25 Date of Service: 06/06/25 Chief Complaint: Perirectal abscess HPI Narrative ELIZABETH BABB, is a 50 F who underwent a lateral internal sphincterotomy performed by me about a week ago for a very symptomatic chronic anal fissure. Her surgery was uneventful and she did well initially. She contacted our office on Wednesday stating that she had some pain and some drainage over the weekend. I suspected that she may have developed a small wound infection. I did place her on antibiotics and recommend that she contact my office if this did not improve. She presented to the emergency department overnight with worsening pain and subjective fevers and chills. Clinically the ER staff appreciated an abscess. I was contacted and recommended a CT scan for further evaluation. CT scan showed a 4.7 x 2.5 cm abscess. I recommended admission and intraoperative drainage. [facility] Medical History Normal Holter exam Anal fissure Effusion, left knee Diabetes Restless legs Shortness of breath on exertion Leg cramps Cardiology follow-up encounter History of echocardiogram History of stress test Nonrheumatic mitral valve disorder Fatty liver Wears glasses Depression Anxiety Back pain Non-smoker History of edema Hypertension Labral tear of right hip joint Segmental and somatic dysfunction of pelvic region Segmental and somatic dysfunction of lumbar region Segmental and somatic dysfunction of thoracic region Segmental and somatic dysfunction of cervical region Home Medications ???Medication ???Instructions ???Recorded ???Last Taken ???Type sertraline 100 mg tablet 100 mg PO QHS mental health 05/28/25 History lisinopril 10 mg tablet 10 mg PO QHS blood pressure 05/28/25 History metformin 500 mg tablet,extended 500 mg PO BID 11/29/23 05/28/25 Hi story release 24 hr vitamin E (dl, acetate) 180 mg 180 mg PO BID #60 caps 06/06/24 Un known Rx (400 unit) capsule Diltiazem 2% / Lidocaine 5% #1 ea 11/09/24 Unknown Rx ointment (compound) (Diltiazem 2%/Lidocaine 5% ointment (compound)) Hydrocortisone 2.5%/lidocaine 5% #42 ea 11/10/24 Unknown Rx suppository (cmpd) cholecalciferol (vitamin D3) 125 125 mcg PO DAILY 03/07/25 Unknown History mcg (5,000 unit) tablet (Vitamin D3) magnesium 250 mg tablet 250 mg PO DAILY 03/07/25 Unknown H istory clindamycin HCl 300 mg capsule 300 mg PO TID 7 days #21 caps 02/21 Unknown Rx (Cleocin HCl) Allergy/AdvReac Type Severity Reaction Status Date / Time latex Allergy Swelling, Verified 06/06/25 05:31 itching Penicillins (PCN) Allergy other Verified 06/06/25 05:31 Sulfa (Sulfonamide Allergy Hives, Verified 06/06/25 05:31 Antibiotics) welts Family History Mother Hypertension Thyroid disorder Depression Rheumatoid arthritis Grandmother Parkinsons disease Surgical History Hx of knee surgery Hx of cystoscopy History of adenoidectomy History of laparoscopic appendectomy ( 09/03/21) History of History of lithotripsy History of tonsillectomy History of colonoscopy ( 2015) History of hysterectomy ( 2011) History of cholecystectomy ( 2001) Social History household members: spouse and children housing: house number of children: 3 current occupational status: employed pets and animals: Yes Smoking Status: Never smoker alcohol intake: never substance use type: does not use caffeine: Yes (occasional) what type of physical activity do you participate in: none seatbelt use: always do you feel safe at home: Yes Vital Signs Vital Signs Vital Signs: 06/06/25 05:31 06/06/25 05:47 06/06/25 07:31 Temperature 98.2 F 98.2 F 98.7 F Temperature Source Oral Oral Oral Pulse Rate 95 95 82 Pulse Strength Respiratory Rate 18 18 16 Respiratory Effort Respiratory Depth Respiratory Pattern Blood Pressure 135/65 H 135/65 H 122/76 H Blood Pressure Mean 88 88 91 Blood Pressure Source Blood Pressure Position Blood Pressure Location Pulse Ox 96 96 95 Oxygen Delivery Method Room Air Room Air Room Air 06/06/25 08:29 06/06/25 09:04 06/06/25 09:04 Temperature 98.1 F Temperature Source Pulse Rate 75 Pulse Strength Normal (2+ (more content not included)...[facility]10-08-2025 Discharge summary Author Caden Cabezas [facility] Note Date/Time June 06, 2025 8: 05am [facility] Medical Records Department [address] [place] [address] Emergency Department Summary 06/06/25 MR#: [id number] Acct: [id number] Name: ELIZABETH BABB Rep #:[id number] : 1975 50 From: Caden Cabezas DO PCP: KENISHA Pham Status:REG E R Location: ED HPI <Dr. Caden Cabezas DO - Last Filed: 06/06/25 07:18> History of Present Illness Chief Complaint: Wound Check Informant: patient and spouse/S.O. Narrative Narrative: Patient is a 50-year-old female with past medical history of hypertension anxiety and depression and [id number] diabetes. On May 29 she underwent surgery by Dr. Swann for an anal fissure. She states the surgery wentwell and afterwards she did not experience any type of pain. However after a few days she noticed pain and swelling in the left gluteal region. She then followed up with the general surgeon on June 04. His note at that visit indicates that he felt the area was a small abscess and he was able to express the remaining purulent material. He then started her on clindamycin. Patient states she is taking the clindamycin as directed but has continued to have discharge and reports increased pain and swelling in the region. She denies anytrue fevers but reports she has had subjective fevers and chills and states her temperature at home was low-grade fever at 99.8. As she feels symptoms are worsening despite seeing the surgeon the other day and taking her antibiotic shepresents for evaluation [facility] <Dr. Caden Cabezas DO - Last Filed: 06/06/25 07:18> [facility] Medical History Normal Holter exam Anal fissure Effusion, left knee Diabetes Restless legs Shortness of breath on exertion Leg cramps Cardiology follow-up encounter History of echocardiogram History of stress test Nonrheumatic mitral valve disorder Fatty liver Wears glasses Depression Anxiety Back pain Non-smoker History of edema Hypertension Labral tear of right hip joint Segmental and somatic dysfunction of pelvic region Segmental and somatic dysfunction of lumbar region Segmental and somatic dysfunction of thoracic region Segmental and somatic dysfunction of cervical region Home Medications ?Medication ?Instructions ?Recorded ?Last Taken ?Type sertraline 100 mg tablet 100 mg PO QHS mental health 08/30/17 05/28/25 History lisinopril 10 mg tablet 10 mg PO QHS blood pressure 12/14/17 05/28/25 History metformin 500 mg tablet,extended 500 mg PO BID 4 05/28/25 History release 24 hr vitamin E (dl, acetate) 180 mg 180 mg PO BID #60 caps 06/06/24 Unknown Rx (400 unit) capsule Diltiazem 2% / Lidocaine 5% #1 ea 11/09/24 Unknown Rx ointment (compound) (Diltiazem 2%/Lidocaine 5% ointment (compound)) Hydrocortisone 2.5%/lidocaine 5% #42 ea 11/10/24 Unkno wn Rx suppository (cmpd) cholecalciferol (vitamin D3) 125 125 mcg PO DAILY 05/24 Unknown History mcg (5,000 unit) tablet (Vitamin D3) magnesium 250 mg tablet 250 mg PO DAILY 03/07/25 Unk nown History tirzepatide 2.5 mg/0.5 mL 2.5 mg subcut STERN 05/25/25 History subcutaneous pen injector (Rosasunmichro) clindamycin HCl 300 mg capsule 300 mg PO TID 7 days #2 1 caps 06/04/25 Unknown Rx (Cleocin HCl) fluconazole 150 mg tablet 150 mg PO QDAY 7 days #7 tab s 06/04/25 Unknown Rx Allergy/AdvReac Type Severity Reaction Status Date / Time latex Allergy Swelling, Verified 06/06/25 05:31 itching Penicillins (PCN) Allergy other Verified 06/06/25 05:31 Sulfa (Sulfonamide Allergy Hives, Verified 06/06/25 05:31 Antibiotics) welts Family History Mother Hypertension Thyroid disorder Depression Rheumatoid arthritis Grandmother Parkinsons disease Surgical History Hx of knee surgery Hx of cystoscopy History of adenoidectomy History of laparoscopic appendectomy (~09/03/21) History of History of lithotripsy History of tonsillectomy History of colonoscopy (~2015) History of hysterectomy (~2011) History of cholecystectomy (~2001) Social History household members: spouse and children housing: house number of children: 3 current occupational status: employed pets and animals: Yes Smoking Status: Never smoker alcohol intake: never substance use type: does not use caffeine: Yes (occasional) what type of physical activity do you participate in: none seatbelt use: always do you feel safe at home: Yes ROS <Dr. Caden Cabezas, DO - Last Filed: 06/06/25 07:18> ROS ED Constitutional Constitutional ED: Reports chills, fever(s) and subjective ENT ENT ED: Denies sore throat Cardiovascular Cardiovascular: Denies chest pain Respiratory/Chest Respiratory/Chest: Denies cough or dyspnea Gastrointestinal Gastrointestinal: Reports other Details: Positive rectal pain and rectal discharge ; Denies abdominal pain, diarrhea, nausea or vomiting Genitourinary Genitourinary ED: Denies dysuria Musculoskeletal Musculoskeletal: Denies myalgias Integumentary Denies rash Neurologic Neurologic: Denies headache(s) Psychiatric Psychiatric: Reports anxiety Hematologic/Lymphatic Hematologic/Lymphatic: Denies easy bleeding or easy bruising EXAM <Dr. Caedn Cabezas DO - Last Filed: 06/06/25 07:18> Physical Exam Const Vital Signs: 06/06/25 05:31 06/06/25 05:47 06/06/25 07:31 Temperature 98.2 F 98.2 F 98.7 F Temperature Source Oral Oral Oral Pulse Rate 95 95 82 Respiratory Rate 18 18 16 Blood Pressure 135/65 H 135/65 H 122/76 H Blood Pressure Mean 88 88 91 Pulse Ox 96 96 95 Oxygen Delivery Method Room Air Room Air Room Air Positive well nourished, well developed and obese General Appearance ED: well developed Nutritional Appearance: obese HEENT HEENT Narrative: Normocephalic atraumatic Eyes PERRL and EOMs intact bilaterally General Eye ED: Negative for scleral icterus Neck supple Neck Narrative: No nuchal rigidity or meningeal signs Resp normal respiratory effort and clear to auscultation bilaterally Cardio regular rate and regular rhythm Narrative: Rectal exam shows erythema and warmth with a 2 x 2 cm area of induration with pustule present located along the left lateral portion of the rectum/gluteal cleft at approximately the 9 o'clock position. There is purulent discharge present No lymphangitic streaking or crepitance noted Extremity normal to inspection Neuro oriented x3, CN's II-XII intact bilaterally and no sensory deficits noted Sensorium / Orientation: alert Motor Exam: strength 5/5 throughout Psych Mood & Affect: anxious and tearful Skin Skin Narrative: Soft tissue changes along the left lateral portion of the rectum and gluteal cleft as documented above <Dr. Uriel Jolley MD - Last Filed: 06/06/25 08:05> Physical Exam Const Vital Signs: 06/06/25 05:31 06/06/25 05:47 06/06/25 07:31 Temperature 98.2 F 98.2 F 98.7 F Temperature Source Oral Oral Oral Pulse Rate 95 95 82 Respiratory Rate 18 18 16 Blood Pressure 135/65 H 135/65 H 122/76 H Blood Pressure Mean 88 88 91 Pulse Ox 96 96 95 Oxygen Delivery Method Room Air Room Air Room Air MDM <Dr. Caden Cabezas DO - Last Filed: 06/06/25 07:18> [facility] MDM Narrative Medical decision making narrative: Patient arrived to the ER with stable vitals. She reports that she was doing well initially after surgery and only a few days later did she develop increasedpain and swelling. Moreover the general surgeons outpatient note was reviewed and he does feel based on her exam that this was an abscess. However at the time when he was able to express the remaining discharge and placed on antibiotics he felt it would improve with that intervention. However as the patient reports return of swelling and pain as well as subjective fevers and chills there is concern for systemic infection or further progression of the abscess infection. Therefore I elected to perform basic laboratory studies to assess for leukocytosis lactic acidosis and left shift. The case was discussed with the general surgeon Dr. Swann. He also recommends obtaining a CT scan of the pelvis with IV contrast to assess the size of the abscess. The patient was treated with IV fluid as well as morphine Zofran and Ativan. Her physical exam and vitals do not suggest signs of sepsis and therefore I feel no need for bloodcultures or IV antibiotics at this time. Patient's labs show that her white count and neutrophil count are just slightly elevated and her lactic acid is normal. These values as well as her vital signswould indicate there are no signs of systemic infection/sepsis and the infectionis indeed a localized abscess. CT scan of the abdomen and pelvis revealed a 4.6 x 3.7 x 2.7 cm area of fluctuance consistent with abscess. The case was then rediscussed with general surgeon Dr. Swann he will come to the ER to evaluate the patient to discuss bedside his incision and drainage versus operating room incision and drainage. As her disposition is still pending she will be signed out to the day physician Dr. Jolley History & Record Review Discussion w/independent historian: Patient and Significant other Additional record(s) reviewed:: Prior outpatient record Lab Data Attestation: I reviewed the patient's lab results. Labs: Laboratory Results - last 24 hr 06/06/25 05:56 WBC 11.3 H RBC 4.80 Hgb 14.0 Hct 40.9 MCV 85.2 MCH 29.2 MCHC 34.2 RDW Std Deviation 35.9 RDW Coeff of Karla 11.7 Plt Count 303 MPV 9.4 Immature Gran % (Auto) 0.500 Neut % (Auto) 75.2 H Lymph % (Auto) 14.3 L Summit % (Auto) 7.7 Eos % (Auto) 1.9 Baso % (Auto) 0.4 Absolute Neuts (auto) 8.5 H Absolute Lymphs (auto) 1.62 Nucleated RBC % 0 Sodium 137 Potassium 4.6 Chloride 101 Carbon Dioxide 23.7 Anion Gap 12 BUN 19 Creatinine 0.87 Estim Creat Clear Calc 96.60 Est GFR (MDRD) Non-Af 81 BUN/Creatinine Ratio 21.5 H Glucose 148 H Lactic Acid 1.4 Calcium 9.8 Radiography Diagnostic Testing: Clinical Impression(s) from Imaging Studies Pelvis CT 06/06/25 05:50 IMPRESSION: Immediately caudal and abutting the left posterolateral aspect of the anus is a developing abscess. It is seen along the medial aspect of the gluteal fold with dimensions above. See above description. Reading Location: [id number] <Dr. Uriel Jolley MD - Last Filed: 06/06/25 08:05> [facility] Lab Data Labs: Laboratory Results - last 24 hr 06/06/25 05:56 WBC 11.3 H RBC 4.80 Hgb 14.0 Hct 40.9 MCV 85.2 MCH 29.2 MCHC 34.2 RDW Std Deviation 35.9 RDW Coeff of Karla 11.7 Plt Count 303 MPV 9.4 Immature Gran % (Auto) 0.500 Neut % (Auto) 75.2 H Lymph % (Auto) 14.3 L Summit % (Auto) 7.7 Eos % (Auto) 1.9 Baso % (Auto) 0.4 Absolute Neuts (auto) 8.5 H Absolute Lymphs (auto) 1.62 Nucleated RBC % 0 Sodium 137 Potassium 4.6 Chloride 101 Carbon Dioxide 23.7 Anion Gap 12 BUN 19 Creatinine 0.87 Estim Creat Clear Calc 96.60 Est GFR (MDRD) Non-Af 81 BUN/Creatinine Ratio 21.5 H Glucose 148 H Lactic Acid 1.4 Calcium 9.8 Radiography Diagnostic Testing: Clinical Impression(s) from Imaging Studies Pelvis CT 06/06/25 05:50 IMPRESSION: Immediately caudal and abutting the left posterolateral aspect of the anus is a developing abscess. It is seen along the medial aspect of the gluteal fold with dimensions above. See above description. Reading Location: [facility] Treatment and Re-Evaluation :: CT of the pelvis was reviewed. Dr. Kvng Swann was notified. He will be in to see patient to determine if patient can be drained in the emergency department versus formally in the OR. Patient was made aware of this. She is complaining of pain. Will treat her pain with Dilaudid. Plan is to take patient to the OR. Discharge Plan Dx/Rx/DC Orders Clinical Impression: Perirectal abscess, Essential hypertension, Non-insulin dependent diabetes mellitus, Anal fissure Disposition Disposition: [facility] What to do if you have Problems For any increased pain, shortness of breath, bleeding, nausea or vomiting, chestpain, or any unexpected problems, contact your Primary Care Provider. Call [facility] ([phone]) or report to the closest Emergency Room. Call 911 if necessary. 06/06/25717 <Electronically signed by Caden Cabezas DO> Cosigner Signature (if applicable): 06/06/25804 <Electronically signed by Orlin HILLIARD> CC: KENISHA Ward ~ Signed [facility] Work Phone: [phone]) 470-736810-08-2025 Discharge summary [facility] Medical Records Department [address] [place] [address] Emergency Department Summary 06/06/25 MR#: [id number] Acct: [id number] Name: ELIZABETH BABB Rep #:[id number] : 1975 50 From: Caden Cabezas DO PCP: KENISHA Pham Status:REG E R Location: ED HPI History of Present Illness Chief Complaint: Wound Check Informant: patient and spouse/S.O. Narrative Narrative: Patient is a 50-year-old female with past medical history of hypertension anxiety and depression and vag-bxiqxzl-wsedtwyxx diabetes. On May 29 she underwent surgery by Dr. Swann for an anal fissure. She states the surgery wentwell and afterwards she did not experience any type of pain. However after a few days she noticed pain and swelling in the left gluteal region. She then followed up with the general surgeon on June 04. His note at that visit indicates that he felt the area was a small abscess and he was able to express the remaining purulent material. He then started her on clindamycin. Patient states she is taking the clindamycin as directed but has continued to have dischargeand reports increased pain and swelling in the region. She denies anytrue fevers but reports she has had subjective fevers and chills and states her temperature at home was low-grade fever at 99.8. As she feels symptoms are worsening despite seeing the surgeon the other day and taking her antibiotic shepresents for evaluation [facility] Medical History Normal Holter exam Anal fissure Effusion, left knee Diabetes Restless legs Shortness of breath on exertion Leg cramps Cardiology follow-up encounter History of echocardiogram History of stress test Nonrheumatic mitral valve disorder Fatty liver Wears glasses Depression Anxiety Back pain Non-smoker History of edema Hypertension Labral tear of right hip joint Segmental and somatic dysfunction of pelvic region Segmental and somatic dysfunction of lumbar region Segmental and somatic dysfunction of thoracic region Segmental and somatic dysfunction of cervical region Home Medications ?Medication ?Instructions ?Recorded ?Last Taken ?Type sertraline 100 mg tablet 100 mg PO QHS mental health 08/30/17 05/28/25 History lisinopril 10 mg tablet 10 mg PO QHS blood pressure 12/14/17 05/28/25 History metformin 500 mg tablet,extended 500 mg PO BID 4 05/28/25 History release 24 hr vitamin E (dl, acetate) 180 mg 180 mg PO BID #60 caps 06/06/24 Unknown Rx (400 unit) capsule Diltiazem 2% / Lidocaine 5% #1 ea 11/09/24 Unknown Rx ointment (compound) (Diltiazem 2%/Lidocaine 5% ointment (compound)) Hydrocortisone 2.5%/lidocaine 5% #42 ea 11/10/24 Unkno wn Rx suppository (cmpd) cholecalciferol (vitamin D3) 125 125 mcg PO DAILY 05/24 Unknown History mcg (5,000 unit) tablet (Vitamin D3) magnesium 250 mg tablet 250 mg PO DAILY 03/07/25 Unk nown History tirzepatide 2.5 mg/0.5 mL 2.5 mg subcut STERN 05/25/25 History subcutaneous pen injector (Mounjaro) clindamycin HCl 300 mg capsule 300 mg PO TID 7 days #2 1 caps 06/04/25 Unknown Rx (Cleocin HCl) fluconazole 150 mg tablet 150 mg PO QDAY 7 days #7 tab s 06/04/25 Unknown Rx Allergy/AdvReac Type Severity Reaction Status Date / Time latex Allergy Swelling, Verified 06/06/25 05:31 itching Penicillins (PCN) Allergy other Verified 06/06/25 05:31 Sulfa (Sulfonamide Allergy Hives, Verified 06/06/25 05:31 Antibiotics) welts Family History Mother Hypertension Thyroid disorder Depression Rheumatoid arthritis Grandmother Parkinsons disease Surgical History Hx of knee surgery Hx of cystoscopy History of adenoidectomy History of laparoscopic appendectomy (~09/03/21) History of History of lithotripsy History of tonsillectomy History of colonoscopy (~2015) History of hysterectomy (~2011) History of cholecystectomy (~2001) Social History household members: spouse and children housing: house number of children: 3 current occupational status: employed pets and animals: Yes Smoking Status: Never smoker alcohol intake: never substance use type: does not use caffeine: Yes (occasional) what type of physical activity do you participate in: none seatbelt use: always do you feel safe at home: Yes ROS ROS ED Constitutional Constitutional ED: Reports chills, fever(s) and subjective ENT ENT ED: Denies sore throat Cardiovascular Cardiovascular: Denies chest pain Respiratory/Chest Respiratory/Chest: Denies cough or dyspnea Gastrointestinal Gastrointestinal: Reports other Details: Positive rectal pain and rectal discharge ; Denies abdominal pain, diarrhea, nausea or vomiting Genitourinary Genitourinary ED: Denies dysuria Musculoskeletal Musculoskeletal: Denies myalgias Integumentary Denies rash Neurologic Neurologic: Denies headache(s) Psychiatric Psychiatric: Reports anxiety Hematologic/Lymphatic Hematologic/Lymphatic: Denies easy bleeding or easy bruising EXAM Physical Exam Const Vital Signs: 06/06/25 05:31 06/06/25 05:47 06/06/25 07:31 Temperature 98.2 F 98.2 F 98.7 F Temperature Source Oral Oral Oral Pulse Rate 95 95 82 Respiratory Rate 18 18 16 Blood Pressure 135/65 H 135/65 H 122/76 H Blood Pressure Mean 88 88 91 Pulse Ox 96 96 95 Oxygen Delivery Method Room Air Room Air Room Air Positive well nourished, well developed and obese General Appearance ED: well developed Nutritional Appearance: obese HEENT HEENT Narrative: Normocephalic atraumatic Eyes PERRL and EOMs intact bilaterally General Eye ED: Negative for scleral icterus Neck supple Neck Narrative: No nuchal rigidity or meningeal signs Resp normal respiratory effort and clear to auscultation bilaterally Cardio regular rate and regular rhythm Narrative: Rectal exam shows erythema and warmth with a 2 x 2 cm area of induration with pustule present located along the left lateral portion of the rectum/gluteal cleft at approximately the 9 o'clock position. There is purulent discharge present No lymphangitic streaking or crepitance noted Extremity normal to inspection Neuro oriented x3, CN's II-XII intact bilaterally and no sensory deficits noted Sensorium / Orientation: alert Motor Exam: strength 5/5 throughout Psych Mood & Affect: anxious and tearful Skin Skin Narrative: Soft tissue changes along the left lateral portion of the rectum and gluteal cleft as documented above Physical Exam Const Vital Signs: 06/06/25 05:31 06/06/25 05:47 06/06/25 07:31 Temperature 98.2 F 98.2 F 98.7 F Temperature Source Oral Oral Oral Pulse Rate 95 95 82 Respiratory Rate 18 18 16 Blood Pressure 135/65 H 135/65 H 122/76 H Blood Pressure Mean 88 88 91 Pulse Ox 96 96 95 Oxygen Delivery Method Room Air Room Air Room Air MDM MDM MDM Narrative Medical decision making narrative: Patient arrived to the ER with stable vitals. She reports that she was doing well initially after surgery and only a few days later did she develop increasedpain and swelling. Moreover the general surgeons outpatient note was reviewed and he does feel based on her exam that this was an abscess. However at the time when he was able to express the remaining discharge and placed on antibiotics he felt it would improve with that intervention. However as the patient reports return of swelling and pain as well as subjective fevers and chills there is concern for systemic infection or further progression of the abscess infection. Therefore I elected to perform basic laboratory studies to assess for leukocytosis lactic acidosis and left shift. The case was discussed with the general surgeon Dr. Swann. He also recommends obtaining a CT scan of the pelvis with IV contrast to assess the size of the abscess. The patient was treated with IV fluid as well as morphine Zofran and Ativan. Her physicalexam and vitals do not suggest signs of sepsis and therefore I feel no need for bloodcultures or IVantibiotics at this time. Patient's labs show that her white count and neutrophil count are just slightly elevated and her lactic acid is normal. These values as well as her vital signswould indicate there are no signs of systemic infection/sepsis and the infectionis indeed a localized abscess. CT scan of the abdomen and pelvis revealed a 4.6 x 3.7 x 2.7 cm area of fluctuance consistent with abscess. The case was then rediscussed with general surgeon Dr. Swann he will come to the ER to evaluate the patient to discuss bedside his incision and drainage versus operating room incision and drainage. As her disposition is still pending she will be signed out to the day physician Dr. Jolley History & Record Review Discussion w/independent historian: Patient and Significant other Additional record(s) reviewed:: Prior outpatient record Lab Data Attestation: I reviewed the patient's lab results. Labs: Laboratory Results - last 24 hr 06/06/25 05:56 WBC 11.3 H RBC 4.80 Hgb 14.0 Hct 40.9 MCV 85.2 MCH 29.2 MCHC 34.2 RDW Std Deviation 35.9 RDW Coeff of Karla 11.7 Plt Count 303 MPV 9.4 Immature Gran % (Auto) 0.500 Neut % (Auto) 75.2 H Lymph % (Auto) 14.3 L Summit % (Auto) 7.7 Eos % (Auto) 1.9 Baso % (Auto) 0.4 Absolute Neuts (auto) 8.5 H Absolute Lymphs (auto) 1.62 Nucleated RBC % 0 Sodium 137 Potassium 4.6 Chloride 101 Carbon Dioxide 23.7 Anion Gap 12 BUN 19 Creatinine 0.87 Estim Creat Clear Calc 96.60 Est GFR (MDRD) Non-Af 81 BUN/Creatinine Ratio 21.5 H Glucose 148 H Lactic Acid 1.4 Calcium 9.8 Radiography Diagnostic Testing: Clinical Impression(s) from Imaging Studies Pelvis CT 06/06/25 05:50 IMPRESSION: Immediately caudal and abutting the left posterolateral aspect of the anus is a developing abscess.It is seen along the medial aspect of the gluteal fold with dimensions above. See above description. Reading Location: [id number] MDM Lab Data Labs: Laboratory Results - last 24 hr 06/06/25 05:56 WBC 11.3 H RBC 4.80 Hgb 14.0 Hct 40.9 MCV 85.2 MCH 29.2 MCHC 34.2 RDW Std Deviation 35.9 RDW Coeff of Karla 11.7 Plt Count 303 MPV 9.4 Immature Gran % (Auto) 0.500 Neut % (Auto) 75.2 H Lymph % (Auto) 14.3 L [place] % (Auto) 7.7 Eos % (Auto) 1.9 Baso % (Auto) 0.4 Absolute Neuts (auto) 8.5 H Absolute Lymphs (auto) 1.62 Nucleated RBC % 0 Sodium 137 Potassium 4.6 Chloride 101 Carbon Dioxide 23.7 Anion Gap 12 BUN 19 Creatinine 0.87 Estim Creat Clear Calc 96.60 Est GFR (MDRD) Non-Af 81 BUN/Creatinine Ratio 21.5 H Glucose 148 H Lactic Acid 1.4 Calcium 9.8 Radiography Diagnostic Testing: Clinical Impression(s) from Imaging Studies Pelvis CT 06/06/25 05:50 IMPRESSION: Immediately caudal and abutting the left posterolateral aspect of the anus is a developing abscess.It is seen along the medial aspect of the gluteal fold with dimensions above. See above description. Reading Location: [id number] Treatment and Re-Evaluation :: CT of the pelvis was reviewed. Dr. Kvng Swann was notified. He will be in to see patient to determine if patient can be drained in the emergency department versus formally in the OR. Patient was made aware of this. She is complaining of pain. Will treat her pain with Dilaudid. Plan is to take patient to the OR. Discharge Plan Dx/Rx/DC Orders Clinical Impression: Perirectal abscess, Essential hypertension, Non-insulin dependent diabetes mellitus, Anal fissure Disposition Disposition: Acute Care Hospital [facility] What to do if you have Problems For any increased pain, shortness of breath, bleeding, nausea or vomiting, chestpain, or any unexpected problems, contact your Primary Care Provider. Call [facility] ([phone]) or report tothe closest Emergency Room. Call 911 if necessary. 06/06/25717 Cosigner Signature (if applicable): 06/06/25804 CC: KENISHA Ward ~ Signed [facility]10-08-2025 Radiology Diagnostic study note [facility] Imaging Services [address] [place] [address] Pelvis WITH IV Contrast MR#: [id number] Acct: [id number] Name: ELIZABETH BABB Rep #: [id number] : 1975 F 50 From: Janie Damico MD PCP: KENISHA Pham Status: REG E R Study:Pelvis WITH IV Contrast Date of Exam: 06/06/25 Exam# [id number] Ordering Dr: Keeley Cabezas DO PROCEDURE: PELVIS WITH IV CONTRAST 06/06/2025 REASON FOR EXAM: LEFT PERIRECTAL ABSCESS TECHNIQUE: Procedure Code: CTPELW Modality: CT Procedure: PELVIS WITH IV CONTRAST CONTRAST: Isovue 300 VOLUME: 83 mL One or more dose reduction techniques were used (e.g., Automated exposure control, adjustment of the mA and/or kV according to patient size, use of iterative reconstruction technique). RADIATION DOSE SUMMARY: CTDlvol: 22 mGy DLP: 935 mGycm COMPARISON: November 05, 2023 FINDINGS: Bladder: Normal Reproductive Organs: Hysterectomy. No adnexal mass. Ovaries are normal. Bowel: Partially imaged colon and small bowel are unremarkable. The rectum is unremarkable. Immediately caudal to and abutting the anus left posterolaterally (4-6 o'clock in the axial plane) there is an irregular, developing fluid collection with low-density centrally an irregular, thickened wall measuring 4.6 x3.7 x 2.7 cm. It is located at the medial aspect of the left gluteal fold directly adjacent to the anus. Continuity to the anusis not seen on this exam. MRI with contrast and rectal gel is more sensitive in this regard; consider thatexamination if the abnormality persists despite treatment. Appendix: Surgically absent Lymph nodes: None appear enlarged. Vasculature: Normal Peritoneum / Retroperitoneum: No free air, free fluid or mass Bones: Unremarkable. CT/Pelvis WITH IV Contrast IMPRESSION: Immediately caudal and abutting the left posterolateral aspect of the anus is a developing abscess.It is seen along the medial aspect of the gluteal fold with dimensions above. See above description. Reading Location: [id number] CC: KENISHA Ward; DO Caleb Mabry Corduroy Brusher Operator: Signed [facility]10-06-2025 [facility] [address] [facility] [place] [address] OFFICE VISIT Date of Service: 06/04/25 MR#: [id number] Acct: [id number] Name: ELIZABETH BABB Rep #: [id number] : 1975 Provider: Dr. Preston Swann MD Age/Sex: 50/F Location: [facility] Status: Signed Intake Vital Signs 05/29/25 12:23 Height 5 ft 6 in Intake Visit Reasons: S/P sphincterotomy 05-29 Chief Complaint: s/p sphincterotomy 05/29 Is patient in pain?: Yes Allergies latex Allergy (Verified 06/04/25 12:40) Swelling, itching Penicillins (PCN) Allergy (Verified 06/04/25 12:40) other Sulfa (Sulfonamide Antibiotics) Allergy (Verified 06/04/25 12:40) Hives, welts Medications ?Medication ?Instructions ?Recorded ?Confirmed ?Type sertraline 100 mg tablet 100 mg PO QHS mental health 08/30/17 06/04/25 History lisinopril 10 mg tablet 10 mg PO QHS blood pressure 12/14/17 06/04/25 History metformin 500 mg tablet,extended 500 mg PO BID 4 06/04/25 History release 24 hr vitamin E (dl, acetate) 180 mg 180 mg PO BID #60 caps 06/06/24 06/04/25 Rx (400 unit) capsule Diltiazem 2% / Lidocaine 5% #1 ea 11/09/24 06/04/25 Rx ointment (compound) (Diltiazem 2%/Lidocaine 5% ointment (compound)) Hydrocortisone 2.5%/lidocaine 5% #42 ea 11/10/2406/04 Rx suppository (cmpd) cholecalciferol (vitamin D3) 125 125 mcg PO DAILY 05/2406/04/25 History mcg (5,000 unit) tablet (Vitamin D3) magnesium 250 mg tablet 250 mg PO DAILY 03/07/2502/21 History tirzepatide 2.5 mg/0.5 mL 2.5 mg subcut STERN 05/25/25 History subcutaneous pen injector (Mounjaro) clindamycin HCl 300 mg capsule 300 mg PO TID 7 days #2 1 caps 06/04/25 06/04/25 Rx (Cleocin HCl) fluconazole 150 mg tablet 150 mg PO QDAY 7 days #7 tab s 06/04/25 06/04/25 Rx Subjective Details: The patient is a 50-year-old female who is status post a recent lateral internalsphincterotomy for an anal fissure. She is doing well until couple days ago when she began having increasing pain in the perianal area. She did also noticed some pus tinged drainage along with some chills. She called the office to be seen. Objective Details: She is alert and oriented x 3. She is in no acute distress. Examination of the perianal area reveals some induration around the left sided incision from the sphincterotomy. A small amount of pus tinged drainage was able to be expressed. The area was probed with a sterile Q-tip however no further drainage was able to be expressed. The surrounding area is tender and somewhat indurated. The fissure itself appears stable. I do not appreciate anyobvious areas of fluctuance or undrained abscess. I suspect there probably is/was a wound infection at the sphincterotomy incision site Coding Level of Care Code Global Post Op Diagnoses Anal fissure K60.2 [facility] Medical History Normal Holter exam Anal fissure Effusion, left knee Diabetes Restless legs Shortness of breath on exertion Leg cramps Cardiology follow-up encounter History of echocardiogram History of stress test Nonrheumatic mitral valve disorder Fatty liver Wears glasses Depression Anxiety Back pain Non-smoker History of edema Hypertension Labral tear of right hip joint Segmental and somatic dysfunction of pelvic region Segmental and somatic dysfunction of lumbar region Segmental and somatic dysfunction of thoracic region Segmental and somatic dysfunction of cervical region Surgical History Hx of knee surgery Hx of cystoscopy History of adenoidectomy History of laparoscopic appendectomy (~09/03/21) History of History of lithotripsy History of tonsillectomy History of colonoscopy (~2015) History of hysterectomy (~2011) History of cholecystectomy (~2001) Family History Mother Hypertension Thyroid disorder Depression Rheumatoid arthritis Grandmother Parkinsons disease Social History household members: spouse and children housing: house number of children: 3 current occupational status: employed pets and animals: Yes Smoking Status: Never smoker alcohol intake: never substance use type: does not use caffeine: Yes (occasional) what type of physical activity do you participate in: none seatbelt use: always do you feel safe at home: Yes Assessment and Plan (No Qualifiers) Assessment and Plan (1) Anal fissure: Status: Acute Plan: The patient is a 50-year-old female status post a right recent lateral internal sphincterotomy surgery for an anal fissure. She seems to developed an infectionat the surgical site. I do not appreciate any obvious undrained abscess at thispoint. I am recommending that we place her on antibiotics andhave her follow-up if this does not improve. She is agreeable to this plan. I have called her and clindamycin as well as Diflucan for yeast infection. She is agreeable to this plan. Plan Details Goals & Barriers: Goals Decrease spasm Improve ROM Decrease pain Barriers Repetitive bending/lifting 06/04/25 1310 k MD> Date _ Riley Swann MD [facility] Signature: Date (if applicable) CC: ~ [facility]09-30-2025 Discharge summary [facility] Medical Records Department [address] [place] [address] Instructions for Home/Discharge Instructions 05/29/25 1516 MR#: [id number] Acct: [id number] Name: ELIZABETH BABB Rep #:[id number] : 1975 50 From: Riley Swann MD PCP: Silvana Ward, INSULATION INSPECTOR-C Status:REG S DC Discharge Instructions Diet Discharge Diet: Light diet - advance as tolerated Activity May shower in (days): 1 Ice area for (Minutes): 30 Dressing / Incision Call your doctor if your incision/area has: Continuous Slow Oozing, Sudden Increased Bleeding, Increased Pain/ Swelling, Increased Redness, Foul Smelling Discharge and Swelling at the incision site Call your doctor if you observe: Fever of 101 or Higher Cleanse incision/area with: Soap & Water Additional Dressing/Incision Instructions:: Apply topical anesthetic (Dibucaine)2-3 times daily as needed for pain to the perianal area Follow Up Care Please Follow Up With: Riley Swann MD Test Results: Test results from this visit will be discussed in further detail at your follow- up appointment, if applicable. Discharge Plan Admission Primary Reason for Your Visit: Anal fissure Attending Provider: Riley Swann Primary Care Provider: Silvana Ward NP Instructions Print Language: Tajik Discharge Orders/Prescriptions Prescriptions: New oxycodone 5 mg tablet 5 mg PO Q8H PRN (Reason: pain) 4 Days Qty: 16 0RF Continued (DME) Diltiazem 2%/Lidocaine 5% ointment (compound) Ointment See Rx Instructions .Route Qty: 1 0RF Rx Instructions: As directed Mounjaro 2.5 mg/0.5 mL pen injector 2.5 mg subcut STERN Patient Comments: [NO ORIGINAL SIG] sertraline 100 MG tablet 100 mg PO QHS lisinopril 10 MG tablet 10 mg PO QHS cholecalciferol (vitamin D3) [Vitamin D3] 125 mcg (5,000 unit) tablet 125 mcg PO DAILY magnesium 250 mg tablet 250 mg PO DAILY metformin 500 mg tablet extended release 24 hr 500 mg PO BID vitamin E (dl, acetate) 180 mg (400 unit) capsule 180 mg PO BID Qty: 60 3RF (DME) Hydrocortisone 2.5%/lidocaine 5% suppository (cmpd) Suppository See Rx Instructions .Route Qty: 42 0RF Rx Instructions: apply to rectum BID Referrals / Follow Up: Silvana Ward NP, INSULATION INSPECTOR-C [Primary Care Provider, Medical] Disposition Disposition (needs filled in before D/C Order can be placed): Home, Self Care 05/29/25 1516Riley Swann MD CC: KENISHA Ward ~ Signed [facility]09-30-[address] [facility] Medical Records Department [address] [place] [address] Anesthesia Postop Eval I 05/29/25 1609 MR#: [id number] Acct: [id number] Name: ELIZABETH BABB Rep #:[id number] : 1975 50 From: Tasia ruggiero CRNA PCP: KENISHA Pham Status:REG S DC Y Race: C Location: [place] [address] Anesthesia: Postop Eval I Current Vital Signs Temperature: 98 F Pulse Rate: 84 Blood Pressure: 147/76 Respiratory Rate: 16 Pulse Ox: 97 Oxygen Delivery Method: Room Air Assessment Airway patent: Yes Spontaneous unlabored respirations: Yes Mental status: Awake and Calm nausea: No Vomiting: No Anesthesia Complication: No Fluid Hydration Crystalloid volume administer (ml): 700 Total IV fluid infused: 700 Progress Note Anesthesia document: Postop Eval 1 completed: Yes 05/29/25 1610 myah TOURING PRODUCTION MANAGER> Date _ Tasia Arriaza TOURING PRODUCTION MANAGER Cosigner Signature: Date CC: ~ Signed [facility]09-30-2025 History and physical note Author Riley Swann [facility] Note Date/Time May 29, 2025 1:34pm [facility] Medical Records Department [address] [place] [address] History & Physical Exam 05/29/25 1332 MR#: [id number] Acct: [id number] Name: ELIZABETH BABB Rep #:[id number] : 1975 50 From: Riley Swann MD PCP: KENISHA Pham Status:REG S DC Location: [place] [address] HPI - General General Date of Admission: 05/29/25 Date of Service: 05/29/25 Chief Complaint: Nonhealing anal fissure HPI Narrative ELIZABETH BABB, is a 50 F who presents for a lateral internal sphincterotomy surgery as treatment for a nonhealing posterior anal fissure. She was seen in my office several months ago for an anal fissure however this improved only to then worsen or recently. I offered her a lateral internal sphincterotomy surgery and she wished to proceed. [facility] Medical History Normal Holter exam Anal fissure Effusion, left knee Diabetes Restless legs Shortness of breath on exertion Leg cramps Cardiology follow-up encounter History of echocardiogram History of stress test Nonrheumatic mitral valve disorder Fatty liver Wears glasses Depression Anxiety Back pain Non-smoker History of edema Hypertension Labral tear of right hip joint Segmental and somatic dysfunction of pelvic region Segmental and somatic dysfunction of lumbar region Segmental and somatic dysfunction of thoracic region Segmental and somatic dysfunction of cervical region Home Medications ?Medication ?Instructions ?Recorded ?Last Taken ?Type sertraline 100 mg tablet 100 mg PO QHS mental health 08/30/17 05/28/25 History lisinopril 10 mg tablet 10 mg PO QHS blood pressure 12/14/17 05/28/25 History metformin 500 mg tablet,extended 500 mg PO BID 4 05/28/25 History release 24 hr vitamin E (dl, acetate) 180 mg 180 mg PO BID #60 caps 06/06/24 Unknown Rx (400 unit) capsule Diltiazem 2% / Lidocaine 5% #1 ea 11/09/24 Unknown Rx ointment (compound) (Diltiazem 2%/Lidocaine 5% ointment (compound)) Hydrocortisone 2.5%/lidocaine 5% #42 ea 11/10/24 Unkno wn Rx suppository (cmpd) cholecalciferol (vitamin D3) 125 125 mcg PO DAILY 05/24 Unknown History mcg (5,000 unit) tablet (Vitamin D3) magnesium 250 mg tablet 250 mg PO DAILY 03/07/25 Unk nown History tirzepatide 2.5 mg/0.5 mL 2.5 mg subcut STERN 05/25/25 History subcutaneous pen injector (Mounjaro) Allergy/AdvReac Type Severity Reaction Status Date / Time latex Allergy Swelling, Verified 05/29/25 12:21 itching Penicillins (PCN) Allergy other Verified 05/29/25 12:21 Sulfa (Sulfonamide Allergy Hives, Verified 05/29/25 12:21 Antibiotics) welts Family History Mother Hypertension Thyroid disorder Depression Rheumatoid arthritis Grandmother Parkinsons disease Surgical History Hx of knee surgery Hx of cystoscopy History of adenoidectomy History of laparoscopic appendectomy (~09/03/21) History of History of lithotripsy History of tonsillectomy History of colonoscopy (~2015) History of hysterectomy (~2011) History of cholecystectomy (~2001) Social History household members: spouse and children housing: house number of children: 3 current occupational status: employed pets and animals: Yes Smoking Status: Never smoker alcohol intake: never substance use type: does not use caffeine: Yes (occasional) what type of physical activity do you participate in: none seatbelt use: always do you feel safe at home: Yes Vital Signs Vital Signs Vital Signs: 05/29/25 12:23 05/29/25 12:23 05/29/25 13:11 Temperature 97.5 F L 97.5 F L Temperature Source Temporal Pulse Rate 68 68 Respiratory Rate 16 16 Respiratory Pattern Normal Blood Pressure 118/75 118/75 Blood Pressure Mean 89 Blood Pressure Source Monitor Blood Pressure Position Semi-Fowlers Blood Pressure Location Left Arm Pulse Ox 96 96 Oxygen Delivery Method Room Air Room Air Weight Weight: 234 lb Body Mass Index (BMI) 37.8 Physical Exam Const alert, oriented x3 and no apparent distress Results Lab / Micro Data Labs: Laboratory Results - last 24 hr 05/29/25 12:24: POC Glucose 108 H Assessment & Plan Assessment/Plan (1) Anal fissure: PLAN: Plan Lateral internal sphincterotomy planned for today. Details of the planned procedure and recovery again discussed. Surgery will begin shortly 05/29/25 1334 <Electronically signed by Riley Swann MD> Cosigner Signature (if applicable): CC: KENISHA Ward; Dr. Riley Swann MD~ Signed [facility] Work Phone: 1(424) 850-101209-30-2025 Procedure note [facility] Medical Records Department [address] [place] [address] Operative Report 05/29/25 1516 MR#: [id number] Acct: [id number] Name: ELIZABETH BABB Rep #:[id number] : 1975 50 From: Riley Swann MD PCP: KENISHA Pham Status:REG S DC Location: [place] [address] Multi Select Codes Digestive Digestive CPT Codes: 75338 Surg dx exam anorectal and 21661 Treatment of anal fissure Endocrine,Ocular,Nerv, Auditory Endocrine,Ocular,Nerv, Auditory CPT Codes: Other Procedure See Report (51524 bilateral pudendal nerve block) Operative Report (Standard) Operative Information Date of Procedure: 05/29/25 Pre-Operative Diagnosis: Chronic anal fissure Post-Operative Diagnosis: Same Surgery/Procedure Performed: 1. Rectal exam under anesthesia 2. Lateral internal sphincterotomy 3. 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: No Type of Anesthesia: General and Local RN Documented Start/Stop Times: Operation Date: 05/29/25 13:30 Case Time Into Pre-Op 05/29/25 12:02 Out of Pre-Op 05/29/25 14:10 Anesthesia Start 05/29/25 14:12 Into Room 05/29/25 14:12 Procedure Start 05/29/25 14:38 Procedure End 05/29/25 14:53 Anesthesia End 05/29/25 14:58 Out of Room 05/29/25 14:58 Procedure Start Time: 14:38 Procedure Stop Time: 14:53 Select all DRAINS/GRAFTS/IMPLANTS that apply: None Estimated Blood Loss: Minimal Specimen collected: No Description of surgery: The patient is a 50-year-old female who was originally seen by me earlier this year for an acute anal fissure. This initially healed and responded to stool softening agents and nifedipine ointment. Afew months ago, the patient underwent knee surgery and I suspect she had some issues with constipation and noted a significant exacerbation in her symptoms. I recently saw her in the office and confirmed recurrence of her fissure. I recommended a lateral internal sphincterotomy. We discussed the details of the planned procedure including risks benefits and alternatives. She wished to proceed. Shewas brought to the operating room today following informed consent. She was initially intubated on the transport cart and then she was rolled into a prone position. Appropriate padding was utilized. The bed was flexed at the waist. The perianal area was prepped and draped in the usual sterile manner. A rectal exam was performed. No masses were noted. There was clearly a very large chronic appearing posterior anal fissure. This measured about a centimeter in length and width. The sphincterotomy was then performed. This was performed byinserting an anal speculum and on the patient's left side at about the 9 o'clockposition, a small amount of local anesthetic was injected just below the anoderm. A #15 blade was then used to make a small incision overlying the sphincter muscle complex. The internal sphincter muscle was dissected out and isolated. Bovie electrocautery was then used to incisethe internal sphincter muscle by no more than 50%. This clinically created relaxation to the anal tone. Hemostasis was very good. The wound was then closed with running 2-0 chromic. Attention was then turned to the fissure itself. The base of the fissure was cauterized to ensure hemostasis and alsoto stimulate ingrowth of granulation tissue. Due to the large size of the fissure, the anoderm was closed using 2-0 chromic as well in order to help heal the wound quicker. Additional local anesthetic was then injected in a bilateral pudendal block manner. Dibucaine was placed over a Gelfoam plug and was then inserted into therectum. She was then awakened from anesthesia and extubated. She was taken to recovery in good condition. Surgical Findings: Large posterior chronic anal fissure Complications Complications: No Admit VTE Documentation VTE Present on Admission: No VTE Mechan Device Prophylaxis: SCD's VTE Pharm Prophylaxis ordered?: No Reason prophylaxis not ordered: Treatment Not Indicated 05/29/25 1527 Cosigner Signature (if applicable): CC: KENISHA Ward; Dr. Riley Swann MD~ Signed [facility]09-30-2025 Discharge summary [facility] Medical Records Department [address] [place] [address] Instructions for Home/Discharge Instructions 05/29/25 1510 MR#: [id number] Acct: [id number] Name: ELIZABETH BABB Rep #:[id number] : 1975 50 From: Riley Swann MD PCP: KENISHA Pham Status:REG S DC Discharge Instructions Diet Discharge Diet: Light diet - advance as tolerated Activity Discharge Activity: Return to Normal Activity May shower in (days): 1 Ice area for (Minutes): 30 Lifting Restrictions: None Dressing / Incision Call your doctor if your incision/area has: Continuous Slow Oozing, Sudden Increased Bleeding, Increased Pain/ Swelling, Increased Redness, Foul Smelling Discharge and Swelling at the incision site Call your doctor if you observe: Fever of 101 or Higher Change Dressing in: 1 day Cleanse incision/area with: Soap & Water Additional Dressing/Incision Instructions:: Apply topical anesthetic (Dibucaine)2-3 times daily as needed for pain to the perianal area Follow Up Care Please Follow Up With: Riley Swann MD When: 2 weeks. Please call office to schedule appointment Test Results: Test results from this visit will be discussed in further detail at your follow- up appointment, if applicable. Discharge Plan Admission Primary Reason for Your Visit: Anal fissure Attending Provider: Riley Swann Primary Care Provider: Silvana Ward NP Instructions Print Language: Tajik Discharge Orders/Prescriptions Prescriptions: New oxycodone 5 mg tablet 5 mg PO Q8H PRN (Reason: pain) 4 Days Qty: 16 0RF Continued (DME) Diltiazem 2%/Lidocaine 5% ointment (compound) Ointment See Rx Instructions .Route Qty: 1 0RF Rx Instructions: As directed Mounjaro 2.5 mg/0.5 mL pen injector 2.5 mg subcut STERN Patient Comments: [NO ORIGINAL SIG] sertraline 100 MG tablet 100 mg PO QHS lisinopril 10 MG tablet 10 mg PO QHS cholecalciferol (vitamin D3) [Vitamin D3] 125 mcg (5,000 unit) tablet 125 mcg PO DAILY magnesium 250 mg tablet 250 mg PO DAILY metformin 500 mg tablet extended release 24 hr 500 mg PO BID vitamin E (dl, acetate) 180 mg (400 unit) capsule 180 mg PO BID Qty: 60 3RF (DME) Hydrocortisone 2.5%/lidocaine 5% suppository (cmpd) Suppository See Rx Instructions .Route Qty: 42 0RF Rx Instructions: apply to rectum BID Referrals / Follow Up: Silvana Ward NP, INSULATION INSPECTOR-C [Primary Care Provider, Medical] Disposition Disposition (needs filled in before D/C Order can be placed): Home, Self Care 05/29/25 1516Stjose roberto Swann MD CC: HUMBERTO-Portia Ward ~ Signed [facility]09-30-2025 Consult note Author Max Hall [facility] Note Date/Time May 29, 2025 1:11pm [facility] Medical Records Department [address] [place] [address] Pre-Anesthesia Evaluation 05/29/25 1303 MR#: [id number] Acct: [id number] Name: ELIZABETH BABB Rep #:[id number] : 1975 50 From: Max Hall MD PCP: KENISHA Pham Status:REG S DC Y Race: C Location: [place] [address] ASA Classification* ASA Classification ASA Classification: 2 Assessment & Plan Anesthesia* Anesthesia Assessment Anesthesia Assessment: Discussed sedation and/or anesthesia options, risks, benefits, and alternatives with patient/parents/legal guardian/POA. Questions invited. The patient/parents/legal guardian/POA seems to understand and agrees to proceedwith anesthesia plan. Reviewed the physical assessment, medical history, allergy history and patient home medications list prior to surgery/procedure/anesthetic and documented any changes. Performed airway and anesthesia risk assessments. Anesthesia Type Anesthesia Type: General History Source History Obtained from:: Patient and Chart Anesthesia Focused Assessment* Temperature: 97.5 F Pulse Rate: 68 Blood Pressure: 118/75 Respiratory Rate: 16 Pulse Ox: 96 Oxygen Delivery Method: Room Air Airway Assessment Mouth opens: >3 cm Mallampati Score: III Teeth Condition: Intact Neck Range of motion (ROM): Full ROM Labs Anesthesia Preop lab: CBC WBC, (4.4-11.0) 5.9 K/mm3 03/09/25, 08:42 RBC, (4.2-5.4) 5.17 M/mm3 03/09/25, 08:42 Hgb, (12.0-15.0) 15.0 g/dL 03/09/25, 08:42 Hct, (37-47) 44.1 % 03/09/25, 08:42 Plt Count, (150-450) 243 K/mm3 03/09/25, 08:42 CHEMISTRY Potassium, (3.3-5.1) 4.5 mmol/L 03/09/25, 08:42 Sodium, (133-145) 139 mmol/L 03/09/25, 08:42 Magnesium, (1.6-2.6) 1.7 mg/dL 03/24/22, 15:40 Phosphorus, (2.7-4.5) 3.8 mg/dL 03/09/25, 08:42 BUN, (4-19) 18 mg/dL 03/09/25, 08:42 Creatinine, (0.70-1.20) 0.79 mg/dL 03/09/25, 08:42 Glucose, (70-99) 162 mg/dL H 03/09/25, 08:42 POC Glucose, (74-106) 108 mg/dL H Today, 12:24 TSH, (0.358-3.740) 1.400 uIU/mL 04/26/24, 08:27 COAG PT, (11.7-14.9) 13.4 SECONDS 08/04/19, 13:54 Pre-Assessment Diagnosis/Proposed Procedure Planned Operative Procedure(s): LATERAL INTERNAL SPHINCTEROTOMY 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 - transportation engineer: 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 - transportation engineer Hx Hospitalization No 05/28/25 08:28 Any Problems With Anesthesia Yes: N,V. NO PROBLEM WITH 05/28/25 08:28 2024 Cholinesterase deficiency No 05/28/25 08:28 You/Your Family Experience No 05/28/25 08:28 fever (hyperthermia) with Relationship Recent Exposure to Contagious No 05/29/25 12:23 Disease Does patient have nerve No 05/28/25 08:28 stimulator Patient instructed to have device shut off --Does patient have Pacemaker No 05/29/25 12:23 or ICD? When Was Last Pacemaker Check QUESTION #4 FULL TEXT: You/Your Family Experience fever (hyperthermia) with Anesthesia Last Oral Intake Last Oral intake: Last Oral Intake NPO since 12:00 05/29/25 12:23 Meds taken in AM with sips of water? Meds patient instructed to take am of surgery Any additional information?: Yes Meds taken in AM with sips of water?: No PONV PONV - transportation engineer: PONV - transportation engineer Female Yes 05/28/25 08:28 HX of Motion Sickness No 05/28/25 08:28 HX of N/V After Surgery Yes 05/28/25 08:28 Non-Smoker Yes 05/28/25 08:28 Duration of Surgery greater Yes 05/28/25 08:28 than 60 minutes Number of Risk Factors 4 05/28/25 08:28 PONV Score Severe Risk 05/28/25 08:28 Height & Weight Height & Weight: Anesthesia: Height & Weight Height 5 ft 6 in 05/29/25 12:23 Weight: 106.141 kg 05/29/25 12:23 Body Mass Index (BMI) 37.8 05/29/25 12:23 Respiratory Assessment Respiratory Assessment - transportation engineer: Respiratory Tract Infection Hx - transportation engineer Hx Respiratory Tract Infection No 05/28/25 08:28 STOP Sleep Apnea STOP Sleep Apnea - transportation engineer: STOP Sleep Apnea - transportation engineer Hx Hypertension Yes: CONTROLLED WITH MED 05/28/25 08:28 Hx Sleep Apnea No 05/28/25 08:28 CPAP No 04/05/25 11:26 BIPAP Do you snore loudly (louder No 05/28/25 08:28 than talking or can be heard Do you often feel tired/ No 05/28/25 08:28 fatigued/ sleepy during daytime? Has anyone observed you stop No 05/28/25 08:28 breathing during sleep? STOP Results Negative 05/28/25 08:28 QUESTION #5 FULL TEXT : Do you snore loudly (louder than talking or can be heard through closed doors)? Tobacco Use History Tobacco Use History - transportation engineer: Tobacco Use History - transportation engineer Tobacco Use Smoking Status Never smoker 05/28/25 08:28 Hx Tobacco Use No 05/28/25 08:28 Years Smoking Packs Smoked per Day Smoking Cessation Date was within the last 15 years Hx Smoking Cessation Date Hx Smoking Cessation Counseling Hematologic Medial History Hematologic Hx - transportation engineer: Hematologic Medical Hx - body cleaner Hx of Blood Transfusion No 05/28/25 08:28 Hx of Transfusion in last 3 No 05/28/25 08:28 Months Date of Last Transfusion (if within last 3 months) Ever experience any problems No 05/28/25 08:28 with transfusion(s)? Specify any problems Hx of Preganancy in last 3 No 05/28/25 08:28 Months Nurse Filling Out Transfusion DSCHRIBER 05/28/25 08:28 & Questions: Date: 05/28/25 05/28/25 08:28 Time: 05/28/25 08:28 Patient unable to answer at this time (ie. confused, unrespo /Reproduction History /Reproductive History - transportation engineer: /Reproductive Hx- transportation engineer Hx Now No 05/28/25 08:28 Gestational Age (in weeks): EDC: Hx Hx Para Hx Section SAB No 05/28/25 08:28 Active Medications Active Medications: Current Medications Generic Name Dose Route Start Last Admin Trade Name Freq PRN Reason Stop Dose Admin Lactated Ringer's 1,000 mls @ 15 mls/hr 05/29/25 12:15 05/29/25 12:33 IV 15 mls/hr .Q48H HAROON Administration PFSH Medical History Normal Holter exam Anal fissure Effusion, left knee Diabetes Restless legs Shortness of breath on exertion Leg cramps Cardiology follow-up encounter History of echocardiogram History of stress test Nonrheumatic mitral valve disorder Fatty liver Wears glasses Depression Anxiety Back pain Non-smoker History of edema Hypertension Labral tear of right hip joint Segmental and somatic dysfunction of pelvic region Segmental and somatic dysfunction of lumbar region Segmental and somatic dysfunction of thoracic region Segmental and somatic dysfunction of cervical region Home Medications ?Medication ?Instructions ?Recorded ?Last Taken ?Type sertraline 100 mg tablet 100 mg PO QHS mental health 08/30/17 05/28/25 History lisinopril 10 mg tablet 10 mg PO QHS blood pressure 12/14/17 05/28/25 History metformin 500 mg tablet,extended 500 mg PO BID 4 05/28/25 History release 24 hr vitamin E (dl, acetate) 180 mg 180 mg PO BID #60 caps 06/06/24 Unknown Rx (400 unit) capsule Diltiazem 2% / Lidocaine 5% #1 ea 11/09/24 Unknown Rx ointment (compound) (Diltiazem 2%/Lidocaine 5% ointment (compound)) Hydrocortisone 2.5%/lidocaine 5% #42 ea 11/10/24 Unkno wn Rx suppository (cmpd) cholecalciferol (vitamin D3) 125 125 mcg PO DAILY 05/24 Unknown History mcg (5,000 unit) tablet (Vitamin D3) magnesium 250 mg tablet 250 mg PO DAILY 03/07/25 Unk nown History tirzepatide 2.5 mg/0.5 mL 2.5 mg subcut STERN 05/25/25 History subcutaneous pen injector (Mounjaro) Allergy/AdvReac Type Severity Reaction Status Date / Time latex Allergy Swelling, Verified 05/29/25 12:21 itching Penicillins (PCN) Allergy other Verified 05/29/25 12:21 Sulfa (Sulfonamide Allergy Hives, Verified 05/29/25 12:21 Antibiotics) welts Family History Mother Hypertension Thyroid disorder Depression Rheumatoid arthritis Grandmother Parkinsons disease Surgical History Hx of knee surgery Hx of cystoscopy History of adenoidectomy History of laparoscopic appendectomy (~09/03/21) History of History of lithotripsy History of tonsillectomy History of colonoscopy (~2015) History of hysterectomy (~2011) History of cholecystectomy (~2001) Social History household members: spouse and children housing: house number of children: 3 current occupational status: employed pets and animals: Yes Smoking Status: Never smoker alcohol intake: never substance use type: does not use caffeine: Yes (occasional) what type of physical activity do you participate in: none seatbelt use: always do you feel safe at home: Yes Review of Systems (Anesthesia) ROS Narrative System reviewed and no additional complaints, except as documented. 05/29/25 1311 <Electronically signed by Max palm MD> Date _ Max Hall MD Cosigner Signature: Date CC: ~ Signed [facility] Work Phone: [phone]) 892-227309-30-2025 History and physical note [facility] Medical Records Department [address] [place] [address] History & Physical Exam 05/29/25 1332 MR#: [id number] Acct: [id number] Name: ELIZABETH BABB Rep #:[id number] : 1975 50 From: Riley Swann MD PCP: KENISHA Pham Status:REG S DC Location: [place] [address] HPI - General General Date of Admission: 05/29/25 Date of Service: 05/29/25 Chief Complaint: Nonhealing anal fissure HPI Narrative ELIZABETH BABB, is a 50 F who presents for a lateral internal sphincterotomy surgery as treatmentfor a nonhealing posterior anal fissure. She was seen in my office several months ago for an anal fissure however this improved only to then worsen or recently. I offered her a lateral internal sphincterotomy surgery and she wished to proceed. [facility] Medical History Normal Holter exam Anal fissure Effusion, left knee Diabetes Restless legs Shortness of breath on exertion Leg cramps Cardiology follow-up encounter History of echocardiogram History of stress test Nonrheumatic mitral valve disorder Fatty liver Wears glasses Depression Anxiety Back pain Non-smoker History of edema Hypertension Labral tear of right hip joint Segmental and somatic dysfunction of pelvic region Segmental and somatic dysfunction of lumbar region Segmental and somatic dysfunction of thoracic region Segmental and somatic dysfunction of cervical region Home Medications ?Medication ?Instructions ?Recorded ?Last Taken ?Type sertraline 100 mg tablet 100 mg PO QHS mental health 08/30/17 05/28/25 History lisinopril 10 mg tablet 10 mg PO QHS blood pressure 12/14/17 05/28/25 History metformin 500 mg tablet,extended 500 mg PO BID 4 05/28/25 History release 24 hr vitamin E (dl, acetate) 180 mg 180 mg PO BID #60 caps 06/06/24 Unknown Rx (400 unit) capsule Diltiazem 2% / Lidocaine 5% #1 ea 11/09/24 Unknown Rx ointment (compound) (Diltiazem 2%/Lidocaine 5% ointment (compound)) Hydrocortisone 2.5%/lidocaine 5% #42 ea 11/10/24 Unkno wn Rx suppository (cmpd) cholecalciferol (vitamin D3) 125 125 mcg PO DAILY 05/24 Unknown History mcg (5,000 unit) tablet (Vitamin D3) magnesium 250 mg tablet 250 mg PO DAILY 03/07/25 Unk nown History tirzepatide 2.5 mg/0.5 mL 2.5 mg subcut STERN 05/25/25 History subcutaneous pen injector (Mounjaro) Allergy/AdvReac Type Severity Reaction Status Date / Time latex Allergy Swelling, Verified 05/29/25 12:21 itching Penicillins (PCN) Allergy other Verified 05/29/25 12:21 Sulfa (Sulfonamide Allergy Hives, Verified 05/29/25 12:21 Antibiotics) welts Family History Mother Hypertension Thyroid disorder Depression Rheumatoid arthritis Grandmother Parkinsons disease Surgical History Hx of knee surgery Hx of cystoscopy History of adenoidectomy History of laparoscopic appendectomy (~09/03/21) History of History of lithotripsy History of tonsillectomy History of colonoscopy (~2015) History of hysterectomy (~2011) History of cholecystectomy (~2001) Social History household members: spouse and children housing: house number of children: 3 current occupational status: employed pets and animals: Yes Smoking Status: Never smoker alcohol intake: never substance use type: does not use caffeine: Yes (occasional) what type of physical activity do you participate in: none seatbelt use: always do you feel safe at home: Yes Vital Signs Vital Signs Vital Signs: 05/29/25 12:23 05/29/25 12:23 05/29/25 13:11 Temperature 97.5 F L 97.5 F L Temperature Source Temporal Pulse Rate 68 68 Respiratory Rate 16 16 Respiratory Pattern Normal Blood Pressure 118/75 118/75 Blood Pressure Mean 89 Blood Pressure Source Monitor Blood Pressure Position Semi-Fowlers Blood Pressure Location Left Arm Pulse Ox 96 96 Oxygen Delivery Method Room Air Room Air Weight Weight: 234 lb Body Mass Index (BMI) 37.8 Physical Exam Const alert, oriented x3 and no apparent distress Results Lab / Micro Data Labs: Laboratory Results - last 24 hr 05/29/25 12:24: POC Glucose 108 H Assessment & Plan Assessment/Plan (1) Anal fissure: PLAN: Plan Lateral internal sphincterotomy planned for today. Details of the planned procedure and recovery again discussed. Surgery will begin shortly 05/29/25 1334 Cosigner Signature (if applicable): CC: KENISHA Ward; Dr. Riley wSann MD~ Signed [facility]09-30-2025 [facility] Medical Records Department [address] [place] [address] History Physical Exam 05/29/25 1332 MR#: [id number] Acct: [id number] Name: ELIZABETH BABB Rep #: [id number] : 1975 50 From: Riley Swann MD PCP: KENISHA Pham Status:[facility] Location: [place] [address] HPI - General General Date of Admission: 05/29/25 Date of Service: 05/29/25 Chief Complaint: Nonhealing anal fissure HPI Narrative ELIZABETH BABB, is a 50 F who presents for a lateral internal sphincterotomy surgery as treatment for a nonhealing posterior anal fissure. She was seen in my office several months ago for an anal fissure however this improved only to then worsen or recently. I offered her a lateral internal sphincterotomy surgery and she wished to proceed. [facility] Medical History Normal Holter exam Anal fissure Effusion, left knee Diabetes Restless legs Shortness of breath on exertion Leg cramps Cardiology follow-up encounter History of echocardiogram History of stress test Nonrheumatic mitral valve disorder Fatty liver Wears glasses Depression Anxiety Back pain Non-smoker History of edema Hypertension Labral tear of right hip joint Segmental and somatic dysfunction of pelvic region Segmental and somatic dysfunction of lumbar region Segmental and somatic dysfunction of thoracic region Segmental and somatic dysfunction of cervical region Home Medications ???Medication ???Instructions ???Recorded ???Last Taken ???Type sertraline 100 mg tablet 100 mg PO QHS mental health 05/28/25 History lisinopril 10 mg tablet 10 mg PO QHS blood pressure 05/28/25 History metformin 500 mg tablet,extended 500 mg PO BID 11/29/23 05/28/25 Hi story release 24 hr vitamin E (dl, acetate) 180 mg 180 mg PO BID #60 caps 06/06/24 Un known Rx (400 unit) capsule Diltiazem 2% / Lidocaine 5% #1 ea 11/09/24 Unknown Rx ointment (compound) (Diltiazem 2%/Lidocaine 5% ointment (compound)) Hydrocortisone 2.5%/lidocaine 5% #42 ea 11/10/24 Unknown Rx suppository (cmpd) cholecalciferol (vitamin D3) 125 125 mcg PO DAILY 03/07/25 Unknown History mcg (5,000 unit) tablet (Vitamin D3) magnesium 250 mg tablet 250 mg PO DAILY 03/07/25 Unknown H istory tirzepatide 2.5 mg/0.5 mL 2.5 mg subcut STERN 05/25/25 05/20/25 History subcutaneous pen injector (Mounjaro) Allergy/AdvReac Type Severity Reaction Status Date / Time latex Allergy Swelling, Verified 05/29/25 12:21 itching Penicillins (PCN) Allergy other Verified 05/29/25 12:21 Sulfa (Sulfonamide Allergy Hives, Verified 05/29/25 12:21 Antibiotics) welts Family History Mother Hypertension Thyroid disorder Depression Rheumatoid arthritis Grandmother Parkinsons disease Surgical History Hx of knee surgery Hx of cystoscopy History of adenoidectomy History of laparoscopic appendectomy ( 09/03/21) History of History of lithotripsy History of tonsillectomy History of colonoscopy ( 2015) History of hysterectomy ( 2011) History of cholecystectomy ( 2001) Social History household members: spouse and children housing: house number of children: 3 current occupational status: employed pets and animals: Yes Smoking Status: Never smoker alcohol intake: never substance use type: does not use caffeine: Yes (occasional) what type of physical activity do you participate in: none seatbelt use: always do you feel safe at home: Yes Vital Signs Vital Signs Vital Signs: 05/29/25 12:23 05/29/25 12:23 05/29/25 13:11 Temperature 97.5 F L 97.5 F L Temperature Source Temporal Pulse Rate 68 68 Respiratory Rate 16 16 Respiratory Pattern Normal Blood Pressure 118/75 118/75 Blood Pressure Mean 89 Blood Pressure Source Monitor Blood Pressure Position Semi-Fowlers Blood Pressure Location Left Arm Pulse Ox 96 96 Oxygen Delivery Method Room Air Room Air Weight Weight: 234 lb Body Mass Index (BMI) 37.8 Physical Exam Const alert, oriented x3 and no apparent distress Results Lab / Micro Data Labs: Laboratory Results - last 24 hr 05/29/25 12:24: POC Glucose 108 H Assessment Plan Assessment/Plan (1) Anal fissure: PLAN: Plan Lateral internal sphincterotomy planned for today. Details of the planned procedure and recovery again discussed. Surgery will begin shortly 05/29/25 1334 Cosigner Signature (if applicable): CC: KENISHA Ward; [facility] Riley Swann [facility] [facility] Medical Records Department [address] [place] [address] Pre-Anesthesia Evaluation 05/29/25 1303 MR#: [id number] Acct: [id number] Name: ELIZABETH BABB Rep #:[id number] : 1975 50 From: Max Hall MD PCP: KENISHA Pham Status:REG S DC Y Race: C Location: [place] [address] ASA Classification* ASA Classification ASA Classification: 2 Assessment & Plan Anesthesia* Anesthesia Assessment Anesthesia Assessment: Discussed sedation and/or anesthesia options, risks, benefits, and alternatives with patient/parents/legal guardian/POA. Questions invited. The patient/parents/legal guardian/POA seems to understand and agrees to proceedwith anesthesia plan. Reviewed the physical assessment, medical history, allergy history and patient home medications list prior to surgery/procedure/anesthetic and documented any changes. Performed airway and anesthesia risk assessments. Anesthesia Type Anesthesia Type: General History Source History Obtained from:: Patient and Chart Anesthesia Focused Assessment* Temperature: 97.5 F Pulse Rate: 68 Blood Pressure: 118/75 Respiratory Rate: 16 Pulse Ox: 96 Oxygen Delivery Method: Room Air Airway Assessment Mouth opens: >3 cm Mallampati Score: III Teeth Condition: Intact Neck Range of motion (ROM): Full ROM Labs Anesthesia Preop lab: CBC WBC, (4.4-11.0) 5.9 K/mm3 03/09/25, 08:42 RBC, (4.2-5.4) 5.17 M/mm3 03/09/25, 08:42 Hgb, (12.0-15.0) 15.0 g/dL 03/09/25, 08:42 Hct, (37-47) 44.1 % 03/09/25, 08:42 Plt Count, (150-450) 243 K/mm3 03/09/25, 08:42 CHEMISTRY Potassium, (3.3-5.1) 4.5 mmol/L 03/09/25, 08:42 Sodium, (133-145) 139 mmol/L 03/09/25, 08:42 Magnesium, (1.6-2.6) 1.7 mg/dL 03/24/22, 15:40 Phosphorus, (2.7-4.5) 3.8 mg/dL 03/09/25, 08:42 BUN, (4-19) 18 mg/dL 03/09/25, 08:42 Creatinine, (0.70-1.20) 0.79 mg/dL 03/09/25, 08:42 Glucose, (70-99) 162 mg/dL H 03/09/25, 08:42 POC Glucose, (74-106) 108 mg/dL H Today, 12:24 TSH, (0.358-3.740) 1.400 uIU/mL 04/26/24, 08:27 COAG PT, (11.7-14.9) 13.4 SECONDS 08/04/19, 13:54 Pre-Assessment Diagnosis/Proposed Procedure Planned Operative Procedure(s): LATERAL INTERNAL SPHINCTEROTOMY 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 - transportation engineer: 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 - transportation engineer Hx Hospitalization No 05/28/25 08:28 Any Problems With Anesthesia Yes: N,V. NO PROBLEM WITH 05/28/25 08:28 2024 Cholinesterase deficiency No 05/28/25 08:28 You/Your Family Experience No 05/28/25 08:28 fever (hyperthermia) with Relationship Recent Exposure to Contagious No 05/29/25 12:23 Disease Does patient have nerve No 05/28/25 08:28 stimulator Patient instructed to have device shut off --Does patient have Pacemaker No 05/29/25 12:23 or ICD? When Was Last Pacemaker Check QUESTION #4 FULL TEXT: You/Your Family Experience fever (hyperthermia) with Anesthesia Last Oral Intake Last Oral intake: Last Oral Intake NPO since 12:00 05/29/25 12:23 Meds taken in AM with sips of water? Meds patient instructed to take am of surgery Any additional information?: Yes Meds taken in AM with sips of water?: No PONV PONV - transportation engineer: PONV - transportation engineer Female Yes 05/28/25 08:28 HX of Motion Sickness No 05/28/25 08:28 HX of N/V After Surgery Yes 05/28/25 08:28 Non-Smoker Yes 05/28/25 08:28 Duration of Surgery greater Yes 05/28/25 08:28 than 60 minutes Number of Risk Factors 4 05/28/25 08:28 PONV Score Severe Risk 05/28/25 08:28 Height & Weight Height & Weight: Anesthesia: Height & Weight Height 5 ft 6 in 05/29/25 12:23 Weight: 106.141 kg 05/29/25 12:23 Body Mass Index (BMI) 37.8 05/29/25 12:23 Respiratory Assessment Respiratory Assessment - transportation engineer: Respiratory Tract Infection Hx - transportation engineer Hx Respiratory Tract Infection No 05/28/25 08:28 STOP Sleep Apnea STOP Sleep Apnea - transportation engineer: STOP Sleep Apnea - transportation engineer Hx Hypertension Yes: CONTROLLED WITH MED 05/28/25 08:28 Hx Sleep Apnea No 05/28/25 08:28 CPAP No 04/05/25 11:26 BIPAP Do you snore loudly (louder No 05/28/25 08:28 than talking or can be heard Do you often feel tired/ No 05/28/25 08:28 fatigued/ sleepy during daytime? Has anyone observed you stop No 05/28/25 08:28 breathing during sleep? STOP Results Negative 05/28/25 08:28 QUESTION #5 FULL TEXT : Do you snore loudly (louder than talking or can be heard through closeddoors)? Tobacco Use History Tobacco Use History - transportation engineer: Tobacco Use History - transportation engineer Tobacco Use Smoking Status Never smoker 05/28/25 08:28 Hx Tobacco Use No 05/28/25 08:28 Years Smoking Packs Smoked per Day Smoking Cessation Date was within the last 15 years Hx Smoking Cessation Date Hx Smoking Cessation Counseling Hematologic Medial History Hematologic Hx - transportation engineer: Hematologic Medical Hx - body cleaner Hx of Blood Transfusion No 05/28/25 08:28 Hx of Transfusion in last 3 No 05/28/25 08:28 Months Date of Last Transfusion (if within last 3 months) Ever experience any problems No 05/28/25 08:28 with transfusion(s)? Specify any problems Hx of Preganancy in last 3 No 05/28/25 08:28 Months Nurse Filling Out Transfusion DSCHRIBER 05/28/25 08:28 & Questions: Date: 05/28/25 05/28/25 08:28 Time: 05/28/25 08:28 Patient unable to answer at this time (ie. confused, unrespo /Reproduction History /Reproductive History - transportation engineer: /Reproductive Hx- transportation engineer Hx Now No 05/28/25 08:28 Gestational Age (in weeks): EDC: Hx Hx Para Hx Section SAB No 05/28/25 08:28 Active Medications Active Medications: Current Medications Generic Name Dose Route Start Last Admin Trade Name Freq PRN Reason Stop Dose Admin Lactated Ringer's 1,000 mls @ 15 mls/hr 05/29/25 12:15 05/29/25 12:33 IV 15 mls/hr .Q48H HAROON Administration PFSH Medical History Normal Holter exam Anal fissure Effusion, left knee Diabetes Restless legs Shortness of breath on exertion Leg cramps Cardiology follow-up encounter History of echocardiogram History of stress test Nonrheumatic mitral valve disorder Fatty liver Wears glasses Depression Anxiety Back pain Non-smoker History of edema Hypertension Labral tear of right hip joint Segmental and somatic dysfunction of pelvic region Segmental and somatic dysfunction of lumbar region Segmental and somatic dysfunction of thoracic region Segmental and somatic dysfunction of cervical region Home Medications ?Medication ?Instructions ?Recorded ?Last Taken ?Type sertraline 100 mg tablet 100 mg PO QHS mental health 08/30/17 05/28/25 History lisinopril 10 mg tablet 10 mg PO QHS blood pressure 12/14/17 05/28/25 History metformin 500 mg tablet,extended 500 mg PO BID 4 05/28/25 History release 24 hr vitamin E (dl, acetate) 180 mg 180 mg PO BID #60 caps 06/06/24 Unknown Rx (400 unit) capsule Diltiazem 2% / Lidocaine 5% #1 ea 11/09/24 Unknown Rx ointment (compound) (Diltiazem 2%/Lidocaine 5% ointment (compound)) Hydrocortisone 2.5%/lidocaine 5% #42 ea 11/10/24 Unkno wn Rx suppository (cmpd) cholecalciferol (vitamin D3) 125 125 mcg PO DAILY 05/24 Unknown History mcg (5,000 unit) tablet (Vitamin D3) magnesium 250 mg tablet 250 mg PO DAILY 03/07/25 Unk nown History tirzepatide 2.5 mg/0.5 mL 2.5 mg subcut STERN 05/25/25 History subcutaneous pen injector (Mounjaro) Allergy/AdvReac Type Severity Reaction Status Date / Time latex Allergy Swelling, Verified 05/29/25 12:21 itching Penicillins (PCN) Allergy other Verified 05/29/25 12:21 Sulfa (Sulfonamide Allergy Hives, Verified 05/29/25 12:21 Antibiotics) welts Family History Mother Hypertension Thyroid disorder Depression Rheumatoid arthritis Grandmother Parkinsons disease Surgical History Hx of knee surgery Hx of cystoscopy History of adenoidectomy History of laparoscopic appendectomy (~09/03/21) History of History of lithotripsy History of tonsillectomy History of colonoscopy (~2015) History of hysterectomy (~2011) History of cholecystectomy (~2001) Social History household members: spouse and children housing: house number of children: 3 current occupational status: employed pets and animals: Yes Smoking Status: Never smoker alcohol intake: never substance use type: does not use caffeine: Yes (occasional) what type of physical activity do you participate in: none seatbelt use: always do you feel safe at home: Yes Review of Systems (Anesthesia) ROS Narrative System reviewed and no additional complaints, except as documented. 05/29/25 1311 néstor HILLIARD> Date _ Max Schafernéstor Simmonsigner Signature: Date CC: ~ Signed [facility]09-26-2025 Evaluation note* Diagnosis Onset Date Resolution Status Admit Date Anal fissure acute May 252024 1:25pm Anal fissure acute May 292024 11:58am [facility] Work Phone: 1(787) 282-429309-26-2025 Evaluation note* Diagnosis Onset Date Resolution Status Admit Date Anal fissure acute May 252024 1:25pm Anal fissure acute May 292024 11:58am Anal fissure acute June 04, 2025 12:37pm [facility] Work Phone: 1(680) 802-884709-26-2025 Evaluation note* Diagnosis Onset Date Resolution Status Admit Date Anal fissure acute May 252024 1:25pm Anal fissure acute May 292024 11:58am Anal fissure acute June 04, 2025 12:37pm Perirectal abscess acute Octobe r 2024 8:10am Status post incision and drainage acute June 06 8:10am Status post incision and drainage acute June 08 2:08pm [facility] Work Phone: 1(280) 536-249009-26-2025 Evaluation note* Diagnosis Onset Date Resolution Status Admit Date Anal fissure acute May 252024 1:25pm Anal fissure acute May 292024 11:58am Anal fissure acute June 04, 2025 12:37pm Status post incision and drainage acute June 06 8:10am Perirectal abscess resolved Mayobe r 2024 8:10am Status post incision and drainage acute June 08 2:08pm Status post incision and drainage acute June 13 8:32am Status post incision and drainage acute June 20 1:46pm [facility] Work Phone: 1([phone]) 774-920509-26-2025 Evaluation note* Diagnosis Onset Date Resolution Status Admit Date Anal fissure acute May 252024 1:25pm Anal fissure acute May 292024 11:58am Anal fissure acute June 04, 2025 12:37pm Status post incision and drainage acute June 06 8:10am Perirectal abscess resolved Octobe r 2024 8:10am Status post incision and drainage acute June 08 2:08pm Status post incision and drainage acute June 13 8:32am Status post incision and drainage acute June 20 1:46pm Status post incision and drainage acute July 03 12:58pm [facility] Work Phone: [phone] [facility] [address] [place] [address]. [address] [place] [address] OFFICE VISIT Date of Service: 05/25/25 MR#: [id number] Acct: [id number] Name: ELIZABETH BABB Rep #: [id number] : 1975 Provider: Dr. Preston Swann MD Age/Sex: 50/F Location: [facility] Status: Signed with Addenda ADDENDUM by ROSANGELA Lopez on 05/25/25 at 1525 Intake Chief Complaint: anal fissure Allergies latex Allergy (Verified 05/25/25 14:04) Swelling, itching Penicillins (PCN) Allergy (Verified 05/25/25 14:04) other Sulfa (Sulfonamide Antibiotics) Allergy (Verified 05/25/25 14:04) Hives, welts Medications ?Medication ?Instructions ?Recorded ?Confirmed ?Type sertraline 100 mg tablet 100 mg PO QHS mental health 08/30/17 05/25/25 History lisinopril 10 mg tablet 10 mg PO QHS blood pressure 12/14/17 05/25/25 History metformin 500 mg tablet,extended 500 mg PO DAILY 11/2805/25/25 History release 24 hr vitamin E (dl, acetate) 180 mg 180 mg PO BID #60 caps 06/06/24 05/25/25 Rx (400 unit) capsule Diltiazem 2% / Lidocaine 5% #1 ea 11/09/24 05/25/25 Rx ointment (compound) (Diltiazem 2%/Lidocaine 5% ointment (compound)) Hydrocortisone 2.5%/lidocaine 5% #42 ea 11/10/2405/25 Rx suppository (cmpd) cholecalciferol (vitamin D3) 125 125 mcg PO DAILY 05/2405/25/25 History mcg (5,000 unit) tablet (Vitamin D3) magnesium 250 mg tablet 250 mg PO DAILY 03/07/25 History tirzepatide 2.5 mg/0.5 mL mg subcut 05/25/25 05/25/25 History subcutaneous pen injector (Mounjaro) Assessment and Plan Assessment and Plan (1) Anal fissure: Status: Acute Plan Details Goals & Barriers: Goals Decrease spasm Improve ROM Decrease pain Barriers Repetitive bending/lifting 05/28/25 1435 k MD> Date _ Riley Swann MD cc: ~* Signed Intake Vital Signs 04/05/25 09:20 05/25/25 14:03 Height 5 ft 6 in 5 ft 6 in Weight: 247 lb BMI 39.9 BP 120/84 H Blood Pressure Location Lt brachial Position Sitting Respiration 18 Pulse 72 Pulse Source Monitor Temp 97.9 F Temp Source Temporal Pulse Oximetry (%) 99 Oxygen Delivery Method room air Intake Visit Reasons: ANAL FISSURE Chief Complaint: anal fissure Is patient in pain?: Yes Allergies latex Allergy (Verified 05/25/25 14:04) Swelling, itching Penicillins (PCN) Allergy (Verified 05/25/25 14:04) other Sulfa (Sulfonamide Antibiotics) Allergy (Verified 05/25/25 14:04) Hives, welts Medications ?Medication ?Instructions ?Recorded ?Confirmed ?Type sertraline 100 mg tablet 100 mg PO QHS mental health 08/30/17 05/25/25 History lisinopril 10 mg tablet 10 mg PO QHS blood pressure 12/14/17 05/25/25 History metformin 500 mg tablet,extended 500 mg PO DAILY 11/2805/25/25 History release 24 hr vitamin E (dl, acetate) 180 mg 180 mg PO BID #60 caps 06/06/24 05/25/25 Rx (400 unit) capsule Diltiazem 2% / Lidocaine 5% #1 ea 11/09/24 05/25/25 Rx ointment (compound) (Diltiazem 2%/Lidocaine 5% ointment (compound)) Hydrocortisone 2.5%/lidocaine 5% #42 ea 11/10/2405/25 Rx suppository (cmpd) cholecalciferol (vitamin D3) 125 125 mcg PO DAILY 05/2405/25/25 History mcg (5,000 unit) tablet (Vitamin D3) magnesium 250 mg tablet 250 mg PO DAILY 03/07/25 History PFSH Medical History Normal Holter exam Anal fissure Effusion, left knee Diabetes Fatty liver Restless legs Shortness of breath on exertion Leg cramps Cardiology follow-up encounter History of echocardiogram History of stress test Nonrheumatic mitral valve disorder Fatty liver Essential hypertension Encounter for screening for COVID-19 Acute appendicitis Right lower quadrant pain Wears glasses Depression Anxiety Back pain Non-smoker History of edema Hypertension Labral tear of right hip joint Right hip pain Segmental and somatic dysfunction of pelvic region Segmental and somatic dysfunction of lumbar region Segmental and somatic dysfunction of thoracic region Segmental and somatic dysfunction of cervical region COVID-19 History of colonic polyps Back pain HTN (hypertension) Hemorrhoid Laceration of right thumb without foreign body without damage to nail Nephrolithiasis Urinary tract infection Surgical History Hx of cystoscopy History of adenoidectomy History of laparoscopic appendectomy (~09/03/21) History of History of lithotripsy History of tonsillectomy History of colonoscopy (~2015) History of hysterectomy (~2011) History of cholecystectomy (~2001) Family History Mother Hypertension Thyroid disorder Depression Rheumatoid arthritis Grandmother Parkinsons disease Social History household members: spouse and children housing: house number of children: 3 current occupational status: employed pets and animals: Yes Smoking Status: Never smoker alcohol intake: never substance use type: does not use caffeine: Yes (occasional) what type of physical activity do you participate in: none seatbelt use: always do you feel safe at home: Yes HPI HPI HPI: The patient is a 50-year-old female who is known to me from a previous office visits earlier this year for an anal fissure. She was prescribed topical lidocaine mixed with diltiazem. This seemed to help her fissure considerably. In retrospect she states that she has had some mild periodic pain since. However, more recently she had a knee surgery and was prescribed pain medicationwhich I suspect may have contributed to some constipation. As a result, she states that her fissure seems to be much worse. She states at the same pain as when the fissure was previously symptomatic. ROS General General: Yes weight change; No appetite, fatigue, colon cancer, breast cancer or weakness HEENT HEENT: No difficulty swallowing, eye injury, eye surgery, swollen glands or hoarseness Endo Endocrine: No thyroid disease, diabetes mellitus, thyroid cancer, Hair loss, heat intolerance or cold intolerance Skin Skin: No rash or changing moles Musc Musculoskeletal: No back problems, arthritis, rheumatoid arthritis, gout or joint pain Cardio Cardiovascular: Yes high blood pressure; No murmur, pacemaker, heart disease, atrial fibrillation, heart attack, heart stent, palpitations, shortness of breath with exertion or chest pain Psych Psychiatric: Yes depression and anxiety; No hearing voices Resp Respiratory: No shortness of breath, No sleep apnea, Yes cough, No COPD, No asthma, No emphysema and No wheezing Gastro Gastrointestinal: No abdominal pain, No nausea or vomiting, No diarrhea, No constipation, Yes bloodin stool, No acid reflux, Yes hemorrhoids, No ulcers, Nogallbladder problem and No black,tarry stools Ki Hematologic: No blood thinners, No blood disorders, No bleeding, No anemia and Yes blood clots Neuro Neurologic: No system reviewed and no additional complaints, except as documented, No as per HPI, No abnormal gait, No abnormal hearing, No abnormal movements, No abnormal speech, No behavioral changes, No burning sensations, No confusion, No convulsions, No disequilibrium, No dizziness, No localized weakness, No frequent falls, No headache(s), No lack of coordination, No loss ofvision, No memoryloss, No numbness, No other visual disturbances, No radicular pain, No restless legs, No sensory deficit, No syncope, No tingling, No tremor(s), No weakness and No other Exam Const General: cooperative, healthy appearing and no acute distress Other: Digital rectal exam deferred due to pain Assessment and Plan Assessment and Plan (1) Anal fissure: Status: Acute Plan: The patient is a 50-year-old female with a history of anal fissure which seems to have become acutely symptomatic again. It sounds as though she really never resolved with conservative measures. As aresult I have recommended a lateral internal sphincterotomy as treatment. We discussed the details of the planned procedure including risks benefits and alternatives. She wishes to proceed. Surgery will be scheduled in a timely manner. Plan Details Goals & Barriers: Goals Decrease spasm Improve ROM Decrease pain Barriers Repetitive bending/lifting Coding Level of Care Code Off vis,est,level 4 Diagnoses Anal fissure K60.2 05/25/25 1501 k MD> Date _ Riley Swann MD Cosigner Signature: Date (if applicable) CC: ~ [facility]09-26-2025 Progress note Author Riley Swann [facility] Note Date/Time May 25, 2025 2:26pm [facility] [address] [place] [address]. [address] [place] [address] OFFICE VISIT Date of Service: 05/25/25 MR#: [id number] Acct: [id number] Name: ELIZABETH BABB Rep #: [id number] : 1975 Provider: Dr. Preston Swann MD Age/Sex: 50/F Location: [facility] Status: Signed with Addenda ADDENDUM by ROSANGELA Lopez on 05/25/25 at 1525 Intake Chief Complaint: anal fissure Allergies latex Allergy (Verified 05/25/25 14:04) Swelling, itching Penicillins (PCN) Allergy (Verified 05/25/25 14:04) other Sulfa (Sulfonamide Antibiotics) Allergy (Verified 05/25/25 14:04) Hives, welts Medications ?Medication ?Instructions ?Recorded ?Confirmed ?Type sertraline 100 mg tablet 100 mg PO QHS mental health 08/30/17 05/25/25 History lisinopril 10 mg tablet 10 mg PO QHS blood pressure 12/14/17 05/25/25 History metformin 500 mg tablet,extended 500 mg PO DAILY 11/2805/25/25 History release 24 hr vitamin E (dl, acetate) 180 mg 180 mg PO BID #60 caps 06/06/24 05/25/25 Rx (400 unit) capsule Diltiazem 2% / Lidocaine 5% #1 ea 11/09/24 05/25/25 Rx ointment (compound) (Diltiazem 2%/Lidocaine 5% ointment (compound)) Hydrocortisone 2.5%/lidocaine 5% #42 ea 11/10/2405/25 Rx suppository (cmpd) cholecalciferol (vitamin D3) 125 125 mcg PO DAILY 0705/2405/25/25 History mcg (5,000 unit) tablet (Vitamin D3) magnesium 250 mg tablet 250 mg PO DAILY 03/07/25 History tirzepatide 2.5 mg/0.5 mL mg subcut 05/25/25 05/25/25 History subcutaneous pen injector (Mounjaro) Assessment and Plan Assessment and Plan (1) Anal fissure: Status: Acute Plan Details Goals & Barriers: Goals Decrease spasm Improve ROM Decrease pain Barriers Repetitive bending/lifting 05/28/25 1435 <Electronically signed by Riley elkins MD> Date _ Riley Swann MD cc: ~* Signed Intake Vital Signs 04/05/25:20 05/25/25 14:03 Height 5 ft 6 in 5 ft 6 in Weight: 247 lb BMI 39.9 BP 120/84 H Blood Pressure Location Lt brachial Position Sitting Respiration 18 Pulse 72 Pulse Source Monitor Temp 97.9 F Temp Source Temporal Pulse Oximetry (%) 99 Oxygen Delivery Method room air Intake Visit Reasons: ANAL FISSURE Chief Complaint: anal fissure Is patient in pain?: Yes Allergies latex Allergy (Verified 05/25/25 14:04) Swelling, itching Penicillins (PCN) Allergy (Verified 05/25/25 14:04) other Sulfa (Sulfonamide Antibiotics) Allergy (Verified 05/25/25 14:04) Hives, welts Medications ?Medication ?Instructions ?Recorded ?Confirmed ?Type sertraline 100 mg tablet 100 mg PO QHS mental health 08/30/17 05/25/25 History lisinopril 10 mg tablet 10 mg PO QHS blood pressure 12/14/17 05/25/25 History metformin 500 mg tablet,extended 500 mg PO DAILY 11/2805/25/25 History release 24 hr vitamin E (dl, acetate) 180 mg 180 mg PO BID #60 caps 06/06/24 05/25/25 Rx (400 unit) capsule Diltiazem 2% / Lidocaine 5% #1 ea 11/09/24 05/25/25 Rx ointment (compound) (Diltiazem 2%/Lidocaine 5% ointment (compound)) Hydrocortisone 2.5%/lidocaine 5% #42 ea 11/10/2405/25 Rx suppository (cmpd) cholecalciferol (vitamin D3) 125 125 mcg PO DAILY 05/2405/25/25 History mcg (5,000 unit) tablet (Vitamin D3) magnesium 250 mg tablet 250 mg PO DAILY 03/07/25 History PFSH Medical History Normal Holter exam Anal fissure Effusion, left knee Diabetes Fatty liver Restless legs Shortness of breath on exertion Leg cramps Cardiology follow-up encounter History of echocardiogram History of stress test Nonrheumatic mitral valve disorder Fatty liver Essential hypertension Encounter for screening for COVID-19 Acute appendicitis Right lower quadrant pain Wears glasses Depression Anxiety Back pain Non-smoker History of edema Hypertension Labral tear of right hip joint Right hip pain Segmental and somatic dysfunction of pelvic region Segmental and somatic dysfunction of lumbar region Segmental and somatic dysfunction of thoracic region Segmental and somatic dysfunction of cervical region COVID-19 History of colonic polyps Back pain HTN (hypertension) Hemorrhoid Laceration of right thumb without foreign body without damage to nail Nephrolithiasis Urinary tract infection Surgical History Hx of cystoscopy History of adenoidectomy History of laparoscopic appendectomy (~09/03/21) History of History of lithotripsy History of tonsillectomy History of colonoscopy (~2015) History of hysterectomy (~2011) History of cholecystectomy (~2001) Family History Mother Hypertension Thyroid disorder Depression Rheumatoid arthritis Grandmother Parkinsons disease Social History household members: spouse and children housing: house number of children: 3 current occupational status: employed pets and animals: Yes Smoking Status: Never smoker alcohol intake: never substance use type: does not use caffeine: Yes (occasional) what type of physical activity do you participate in: none seatbelt use: always do you feel safe at home: Yes HPI HPI HPI: The patient is a 50-year-old female who is known to me from a previous office visits earlier this year for an anal fissure. She was prescribed topical lidocaine mixed with diltiazem. This seemed to help her fissure considerably. In retrospect she states that she has had some mild periodic pain since. However, more recently she had a knee surgery and was prescribed pain medicationwhich I suspect may have contributed to some constipation. As a result, she states that her fissure seems to be much worse. She states at the same pain as when the fissure was previously symptomatic. ROS General General: Yes weight change; No appetite, fatigue, colon cancer, breast cancer or weakness HEENT HEENT: No difficulty swallowing, eye injury, eye surgery, swollen glands or hoarseness Endo Endocrine: No thyroid disease, diabetes mellitus, thyroid cancer, Hair loss, heat intolerance or cold intolerance Skin Skin: No rash or changing moles Musc Musculoskeletal: No back problems, arthritis, rheumatoid arthritis, gout or joint pain Cardio Cardiovascular: Yes high blood pressure; No murmur, pacemaker, heart disease, atrial fibrillation, heart attack, heart stent, palpitations, shortness of breath with exertion or chest pain Psych Psychiatric: Yes depression and anxiety; No hearing voices Resp Respiratory: No shortness of breath, No sleep apnea, Yes cough, No COPD, No asthma, No emphysema and No wheezing Gastro Gastrointestinal: No abdominal pain, No nausea or vomiting, No diarrhea, No constipation, Yes blood in stool, No acid reflux, Yes hemorrhoids, No ulcers, Nogallbladder problem and No black,tarry stools Ki Hematologic: No blood thinners, No blood disorders, No bleeding, No anemia and Yes blood clots Neuro Neurologic: No system reviewed and no additional complaints, except as documented, No as per HPI, No abnormal gait, No abnormal hearing, No abnormal movements, No abnormal speech, No behavioral changes, No burning sensations, No confusion, No convulsions, No disequilibrium, No dizziness, No localized weakness, No frequent falls, No headache(s), No lack of coordination, No loss ofvision, No memory loss, No numbness, No other visual disturbances, No radicular pain, No restless legs, No sensory deficit, No syncope, No tingling, No tremor(s), No weakness and No other Exam Const General: cooperative, healthy appearing and no acute distress Other: Digital rectal exam deferred due to pain Assessment and Plan Assessment and Plan (1) Anal fissure: Status: Acute Plan: The patient is a 50-year-old female with a history of anal fissure which seems to have become acutely symptomatic again. It sounds as though she really never resolved with conservative measures. As a result I have recommended a lateral internal sphincterotomy as treatment. We discussed the details of the planned procedure including risks benefits and alternatives. She wishes to proceed. Surgery will be scheduled in a timely manner. Plan Details Goals & Barriers: Goals Decrease spasm Improve ROM Decrease pain Barriers Repetitive bending/lifting Coding Level of Care Code Off vis,est,level 4 Diagnoses Anal fissure K60.2 05/25/25 1501 <Electronically signed by Riley elkins MD> Date _ Riley Swann MD Cosigner Signature: Date (if applicable) CC: ~ [facility] Work Phone: 1(528) 414-980208-18-2025 Telephone encounter Note* Telephone Encounter - Ava Rizvi LPN - 04/16/2025 2:12 PM EDT Fax rec'd from insurance noting no PA was needed. [facility]08-18-2025 Miscellaneous Notes* Telephone Encounter - Ava Rizvi LPN - 04/16/2025 2:12 PM EDT Fax rec'd from insurance noting no PA was needed. * Telephone Encounter - Ava Rizvi LPN - 04/13/2025 2:45 PM EDT Another form rec'd this was completed and to pcp to sign.(ITS THE SAME QUESTIONS JUST DIFFERENT FORM). * Telephone Encounter - Ava Rizvi LPN - 04/13/2025 11:27 AM EDT unable to complete PA for mounjaro electronically. Covermymeds says to complete with rx benefits. Form completed. [facility] Telephone encounter Note * Telephone Encounter - Ava Rizvi LPN - 04/13/2025 2:45 PM EDT Another form rec'd this was completed and to pcp to sign.(ITS THE SAME QUESTIONS JUST DIFFERENT FORM). [facility]08-15-2025 Telephone encounter Note* Telephone Encounter - Ava Rizvi LPN - 04/13/2025 11:27 AM EDT unable to complete PA for mounjaro electronically. Covermymeds says to complete with rx benefits. Form completed. [facility]08-12-2025 Telephone encounter Note* Telephone Encounter - Ava Rizvi LPN - 04/10/2025 3:09 PM EDT Pt notified via my chart. [facility]08-12-2025 Miscellaneous Notes* Telephone Encounter - Ava Rizvi LPN - 04/10/2025 3:09 PM EDT Pt notified via my chart. * Telephone Encounter - Ava Rizvi LPN - 04/10/2025 2:50 PM EDT Electronic PA requested for review. Unable to complete this electronically. Called the pharmacy to verify this need. The pharmacist reports no PA is needed. They will get it ready for the pt. documented in this encounter[facility] Telephone encounter Note * Telephone Encounter - Ava Rizvi LPN - 04/10/2025 2:50 PM EDT Electronic PA requested for review. Unable to complete this electronically. Called the pharmacy to verify this need. The pharmacist reports no PA is needed. They will get it ready for the pt. [facility]08-07-2025 Consult note Author To Fagan [facility] Note Date/Time April 05, 2025 11: 51am [facility] Medical Records Department [address] [place] [address] Anesthesia Postop Eval I 04/05/25 1150 MR#: [id number] Acct: [id number] Name: ELIZABETH BABB Rep #:[id number] : 1975 50 From: To MELENDEZ PCP: KENISHA Pham Status:REG S DC Y Race: C Location: [place] [address] Anesthesia: Postop Eval I Current Vital Signs Temperature: 97.6 F Pulse Rate: 82 Blood Pressure: 131/84 Respiratory Rate: 16 Pulse Ox: 96 Oxygen Delivery Method: Room Air Assessment Airway patent: Yes Spontaneous unlabored respirations: Yes Mental status: Awake and Calm nausea: No Vomiting: No Anesthesia Complication: No Fluid Hydration Crystalloid volume administer (ml): 800 Total IV fluid infused: 800 Progress Note Anesthesia document: Postop Eval 1 completed: Yes 04/05/25 115 <Electronically signed by To Fagan CRNA> Date _ To Fagan CRNA Cosigner Signature: Date CC: ~ Signed [facility] Work Phone: 1(375) 836-992008-07-[address] [facility] Medical Records Department [address] [place] [address] Anesthesia Postop Eval I 04/05/25 1150 MR#: [id number] Acct: [id number] Name: ELIZABETH BABB Rep #:[id number] : 1975 50 From: To MELENDEZ PCP: MADISYN PhamC Status:REG S DC Y Race: C Location: [place] [address] Anesthesia: Postop Eval I Current Vital Signs Temperature: 97.6 F Pulse Rate: 82 Blood Pressure: 131/84 Respiratory Rate: 16 Pulse Ox: 96 Oxygen Delivery Method: Room Air Assessment Airway patent: Yes Spontaneous unlabored respirations: Yes Mental status: Awake and Calm nausea: No Vomiting: No Anesthesia Complication: No Fluid Hydration Crystalloid volume administer (ml): 800 Total IV fluid infused: 800 Progress Note Anesthesia document: Postop Eval 1 completed: Yes 04/05/25 1151 TOURING PRODUCTION MANAGER> Date _ To Fagan TOURING PRODUCTION MANAGER Cosigner Signature: Date CC: ~ Signed [facility]08-07-2025 Consult note Author Jose Ramon Millerearl [facility] Note Date/Time April 05, 2025 9:[address] [facility] Medical Records Department [address] [place] [id number] Pre-Anesthesia Evaluation 04/05/25 0922 MR#: [id number] Acct: [id number] Name: ELIZABETH BABB Rep #:[id number] : 1975 50 From: Jose Ramon White MD PCP: KENISHA Pham Status:REG S DC Y Race: C Location: [place] [address] ASA Classification* ASA Classification ASA Classification: 2 Assessment & Plan Anesthesia* Anesthesia Assessment Anesthesia Assessment: Discussed sedation and/or anesthesia options, risks, benefits, and alternatives with patient/parents/legal guardian/POA. Questions invited. The patient/parents/legal guardian/POA seems to understand and agrees to proceedwith anesthesia plan. Reviewed the physical assessment, medical history, allergy history and patient home medications list prior to surgery/procedure/anesthetic and documented any changes. Performed airway and anesthesia risk assessments. Anesthesia Type Anesthesia Type: General Anesthesia Focused Assessment* Airway Assessment Mouth opens: >3 cm Mallampati Score: II Labs Anesthesia Preop lab: CBC WBC 5.9 K/mm3 (4.4-11.0) 03/09/25 08:42 03/09/25 RBC 5.17 M/mm3 (4.2-5.4) 03/09/25 08:42 03/09/25 Hgb 15.0 g/dL (12.0-15.0) 03/09/25 08:42 03/09/25 Hct 44.1 % (37-47) 03/09/25 08:42 03/09/25 Plt Count 243 K/mm3 (150-450) 03/09/25 08:42 03/09/25 CHEMISTRY Potassium 4.5 mmol/L (3.3-5.1) 03/09/25 08:42 03/09/25 Sodium 139 mmol/L (133-145) 03/09/25 08:42 03/09/25 Magnesium 1.7 mg/dL (1.6-2.6) 03/24/22 15:40 03/24/22 Phosphorus 3.8 mg/dL (2.7-4.5) 03/09/25 08:42 03/09/25 BUN 18 mg/dL (4-19) 03/09/25 08:42 03/09/25 Creatinine 0.79 mg/dL (0.70-1.20) 03/09/25 08:42 03/09/25 Glucose 162 mg/dL (70-99) H 03/09/25 08:42 03/09/25 TSH 1.400 uIU/mL (0.358-3.740) 04/26/24 08:27 08/04/22 COAG PT 13.4 SECONDS (11.7-14.9) 08/04/19 13:54 Pre-Assessment Diagnosis/Proposed Procedure Planned Operative Procedure(s): (L) LEFT KNEE ARTHROSCOPIC MEDIAL MENISCAL ROOT REPAIR 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 When Was Last Pacemaker Check QUESTION #4 FULL TEXT: You/Your Family Experience fever (hyperthermia) with Anesthesia Last Oral Intake Last Oral intake: Last Oral Intake NPO since Meds taken in AM with sips of water? Meds patient instructed to take am of surgery PONV PONV - transportation engineer: PONV - transportation engineer Female Yes 03/07/25 08:28 HX of Motion Sickness Yes 03/07/25 08:28 HX of N/V After Surgery Yes 03/07/25 08:28 Non-Smoker Yes 03/07/25 08:28 Duration of Surgery greater Yes 03/07/25 08:28 than 60 minutes Number of Risk Factors 5 03/07/25 08:28 PONV Score Severe Risk 03/07/25 08:28 Height & Weight Height & Weight: Anesthesia: Height & Weight Height 5 ft 6 in 12/22/24 14:13 Respiratory Assessment Respiratory Assessment - transportation engineer: Respiratory Tract Infection Hx - transportation engineer Hx Respiratory Tract Infection No 03/07/25 08:28 STOP Sleep Apnea STOP Sleep Apnea - transportation engineer: STOP Sleep Apnea - transportation engineer Hx Hypertension Yes: CONTROLLED WITH MED 03/07/25 08:28 Hx Sleep Apnea No 03/07/25 08:28 CPAP No 03/07/25 08:28 BIPAP Do you snore loudly (louder No 03/07/25 08:28 than talking or can be heard Do you often feel tired/ No 03/07/25 08:28 fatigued/ sleepy during daytime? Has anyone observed you stop No 03/07/25 08:28 breathing during sleep? STOP Results Negative 03/07/25 08:28 QUESTION #5 FULL TEXT : Do you snore loudly (louder than talking or can be heard through closed doors)? 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 Specify any problems Hx of Preganancy in last 3 No 03/07/25 08:28 Months Nurse Filling Out Transfusion VCHRISTIN 03/07/25 08:28 & Questions: Date: 03/07/25 03/07/25 08:28 Time: 08:29 03/07/25 08:28 Patient unable to answer at this time (ie. confused, unrespo /Reproduction History /Reproductive History - transportation engineer: /Reproductive Hx- transportation engineer Hx Now No 03/07/25 08:28 Gestational Age (in weeks): EDC: Hx Hx Para Hx Section SAB No 03/07/25 08:28 Active Medications Active Medications: Current Medications Generic Name Dose Route Start Last Admin Trade Name Freq PRN Reason Stop Dose Admin Cefazolin Sodium 2 gm/ Sodium 110 mls @ 200 mls/hr 04/05/25 10:15 Chloride IV 04/05/25 10:47 INTRAOP ONE Lactated Ringer's 1,000 mls @ 15 mls/hr 04/05/25 09:00 IV .Q48H HAROON PFSH Medical History (Updated 03/07/25 @ 08:27 by Mavis Elliott) Normal Holter exam Anal fissure Effusion, left knee Diabetes Fatty liver Restless legs Shortness of breath on exertion Leg cramps Cardiology follow-up encounter History of echocardiogram History of stress test Nonrheumatic mitral valve disorder Fatty liver Essential hypertension Encounter for screening for COVID-19 Acute appendicitis Right lower quadrant pain Wears glasses Depression Anxiety Back pain Non-smoker History of edema Hypertension Labral tear of right hip joint Right hip pain Segmental and somatic dysfunction of pelvic region Segmental and somatic dysfunction of lumbar region Segmental and somatic dysfunction of thoracic region Segmental and somatic dysfunction of cervical region COVID-19 History of colonic polyps Back pain HTN (hypertension) Hemorrhoid Laceration of right thumb without foreign body without damage to nail Nephrolithiasis Urinary tract infection Home Medications ?Medication ?Instructions ?Recorded ?Last Taken ?Type sertraline 100 mg tablet 100 mg PO QHS mental health 08/30/17 03/20/21 History lisinopril 10 mg tablet 10 mg PO QHS blood pressure 12/14/17 03/20/21 History metformin 500 mg tablet,extended 500 mg PO DAILY 11/28 Unknown History release 24 hr vitamin E (dl, acetate) 180 mg 180 mg PO BID #60 caps 06/06/24 Unknown Rx (400 unit) capsule Diltiazem 2% / Lidocaine 5% #1 ea 11/09/24 Unknown Rx ointment (compound) (Diltiazem 2%/Lidocaine 5% ointment (compound)) Hydrocortisone 2.5%/lidocaine 5% #42 ea 11/10/24 Unkno wn Rx suppository (cmpd) cholecalciferol (vitamin D3) 125 125 mcg PO DAILY 05/24 Unknown History mcg (5,000 unit) tablet (Vitamin D3) magnesium 250 mg tablet 250 mg PO DAILY 03/07/25 Unk nown History Allergy/AdvReac Type Severity Reaction Status Date / Time latex Allergy Swelling, Verified 04/05/25 09:19 itching Penicillins (PCN) Allergy other Verified 04/05/25 09:19 Sulfa (Sulfonamide Allergy Hives, Verified 04/05/25 09:19 Antibiotics) welts Family History Mother Hypertension Thyroid disorder Depression Rheumatoid arthritis Grandmother Parkinsons disease Surgical History (Updated 03/07/25 @ 08:27 by Mavis Elliott) Hx of cystoscopy History of adenoidectomy History of laparoscopic appendectomy (~09/03/21) History of History of lithotripsy History of tonsillectomy History of colonoscopy (~2015) History of hysterectomy (~2011) History of cholecystectomy (~2001) Social History household members: spouse and children housing: house number of children: 3 current occupational status: employed pets and animals: Yes Smoking Status: Never smoker alcohol intake: never substance use type: does not use caffeine: Yes (occasional) what type of physical activity do you participate in: none seatbelt use: always do you feel safe at home: Yes Review of Systems (Anesthesia) ROS Narrative System reviewed and no additional complaints, except as documented. 04/05/25922 <Electronically signed by Jose Ramon White MD> Date _ Jose Ramon White MD Cosigner Signature: Date CC: ~ Signed [facility] Work Phone: 1(797) 739-265108-07-[address] [facility] Medical Records Department [address] [place] [address] Pre-Anesthesia Evaluation 04/05/25921 MR#: [id number] Acct: [id number] Name: ELIZABETH BABB Rep #:[id number] : 1975 50 From: Jose Ramon White MD PCP: MADISYN PhamC Status:REG S DC Y Race: C Location: [place] [address] ASA Classification* ASA Classification ASA Classification: 2 Assessment & Plan Anesthesia* Anesthesia Assessment Anesthesia Assessment: Discussed sedation and/or anesthesia options, risks, benefits, and alternatives with patient/parents/legal guardian/POA. Questions invited. The patient/parents/legal guardian/POA seems to understand and agrees to proceedwith anesthesia plan. Reviewed the physical assessment, medical history, allergy history and patient home medications list prior to surgery/procedure/anesthetic and documented any changes. Performed airway and anesthesia risk assessments. Anesthesia Type Anesthesia Type: General Anesthesia Focused Assessment* Airway Assessment Mouth opens: >3 cm Mallampati Score: II Labs Anesthesia Preop lab: CBC WBC 5.9 K/mm3 (4.4-11.0) 03/09/25 08:42 03/09/25 RBC 5.17 M/mm3 (4.2-5.4) 03/09/25 08:42 03/09/25 Hgb 15.0 g/dL (12.0-15.0) 03/09/25 08:42 03/09/25 Hct 44.1 % (37-47) 03/09/25 08:42 03/09/25 Plt Count 243 K/mm3 (150-450) 03/09/25 08:42 03/09/25 CHEMISTRY Potassium 4.5 mmol/L (3.3-5.1) 03/09/25 08:42 03/09/25 Sodium 139 mmol/L (133-145) 03/09/25 08:42 03/09/25 Magnesium 1.7 mg/dL (1.6-2.6) 03/24/22 15:40 03/24/22 Phosphorus 3.8 mg/dL (2.7-4.5) 03/09/25 08:42 03/09/25 BUN 18 mg/dL (4-19) 03/09/25 08:42 03/09/25 Creatinine 0.79 mg/dL (0.70-1.20) 03/09/25 08:42 03/09/25 Glucose 162 mg/dL (70-99) H 03/09/25 08:42 03/09/25 TSH 1.400 uIU/mL (0.358-3.740) 04/26/24 08:27 03/31 04/22 COAG PT 13.4 SECONDS (11.7-14.9) 08/04/19 13:54 Pre-Assessment Diagnosis/Proposed Procedure Planned Operative Procedure(s): (L) LEFT KNEE ARTHROSCOPIC MEDIAL MENISCAL ROOT REPAIR 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 When Was Last Pacemaker Check QUESTION #4 FULL TEXT: You/Your Family Experience fever (hyperthermia) with Anesthesia Last Oral Intake Last Oral intake: Last Oral Intake NPO since Meds taken in AM with sips of water? Meds patient instructed to take am of surgery PONV PONV - transportation engineer: PONV - transportation engineer Female Yes 03/07/25 08:28 HX of Motion Sickness Yes 03/07/25 08:28 HX of N/V After Surgery Yes 03/07/25 08:28 Non-Smoker Yes 03/07/25 08:28 Duration of Surgery greater Yes 03/07/25 08:28 than 60 minutes Number of Risk Factors 5 03/07/25 08:28 PONV Score Severe Risk 03/07/25 08:28 Height & Weight Height & Weight: Anesthesia: Height & Weight Height 5 ft 6 in 12/22/24 14:13 Respiratory Assessment Respiratory Assessment - transportation engineer: Respiratory Tract Infection Hx - transportation engineer Hx Respiratory Tract Infection No 03/07/25 08:28 STOP Sleep Apnea STOP Sleep Apnea - transportation engineer: STOP Sleep Apnea - transportation engineer Hx Hypertension Yes: CONTROLLED WITH MED 03/07/25 08:28 Hx Sleep Apnea No 03/07/25 08:28 CPAP No 03/07/25 08:28 BIPAP Do you snore loudly (louder No 03/07/25 08:28 than talking or can be heard Do you often feel tired/ No 03/07/25 08:28 fatigued/ sleepy during daytime? Has anyone observed you stop No 03/07/25 08:28 breathing during sleep? STOP Results Negative 03/07/25 08:28 QUESTION #5 FULL TEXT : Do you snore loudly (louder than talking or can be heard through closeddoors)? 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 Specify any problems Hx of Preganancy in last 3 No 03/07/25 08:28 Months Nurse Filling Out Transfusion VCHRISTIN 03/07/25 08:28 & Questions: Date: 03/07/25 03/07/25 08:28 Time: 08:29 03/07/25 08:28 Patient unable to answer at this time (ie. confused, unrespo /Reproduction History /Reproductive History - transportation engineer: /Reproductive Hx- transportation engineer Hx Now No 03/07/25 08:28 Gestational Age (in weeks): EDC: Hx Hx Para Hx Section SAB No 03/07/25 08:28 Active Medications Active Medications: Current Medications Generic Name Dose Route Start Last Admin Trade Name Freq PRN Reason Stop Dose Admin Cefazolin Sodium 2 gm/ Sodium 110 mls @ 200 mls/hr 04/05/25 10:15 Chloride IV 04/05/25 10:47 INTRAOP ONE Lactated Ringer's 1,000 mls @ 15 mls/hr 04/05/25 09:00 IV .Q48H HAROON PFSH Medical History (Updated 03/07/25 @ 08:27 by Mavis Elliott) Normal Holter exam Anal fissure Effusion, left knee Diabetes Fatty liver Restless legs Shortness of breath on exertion Leg cramps Cardiology follow-up encounter History of echocardiogram History of stress test Nonrheumatic mitral valve disorder Fatty liver Essential hypertension Encounter for screening for COVID-19 Acute appendicitis Right lower quadrant pain Wears glasses Depression Anxiety Back pain Non-smoker History of edema Hypertension Labral tear of right hip joint Right hip pain Segmental and somatic dysfunction of pelvic region Segmental and somatic dysfunction of lumbar region Segmental and somatic dysfunction of thoracic region Segmental and somatic dysfunction of cervical region COVID-19 History of colonic polyps Back pain HTN (hypertension) Hemorrhoid Laceration of right thumb without foreign body without damage to nail Nephrolithiasis Urinary tract infection Home Medications ?Medication ?Instructions ?Recorded ?Last Taken ?Type sertraline 100 mg tablet 100 mg PO QHS mental health 08/30/17 03/20/21 History lisinopril 10 mg tablet 10 mg PO QHS blood pressure 12/14/17 03/20/21 History metformin 500 mg tablet,extended 500 mg PO DAILY 11/28 Unknown History release 24 hr vitamin E (dl, acetate) 180 mg 180 mg PO BID #60 caps 06/06/24 Unknown Rx (400 unit) capsule Diltiazem 2% / Lidocaine 5% #1 ea 11/09/24 Unknown Rx ointment (compound) (Diltiazem 2%/Lidocaine 5% ointment (compound)) Hydrocortisone 2.5%/lidocaine 5% #42 ea 11/10/24 Unkno wn Rx suppository (cmpd) cholecalciferol (vitamin D3) 125 125 mcg PO DAILY 05/24 Unknown History mcg (5,000 unit) tablet (Vitamin D3) magnesium 250 mg tablet 250 mg PO DAILY 03/07/25 Unk nown History Allergy/AdvReac Type Severity Reaction Status Date / Time latex Allergy Swelling, Verified 04/05/25 09:19 itching Penicillins (PCN) Allergy other Verified 04/05/25 09:19 Sulfa (Sulfonamide Allergy Hives, Verified 04/05/25 09:19 Antibiotics) welts Family History Mother Hypertension Thyroid disorder Depression Rheumatoid arthritis Grandmother Parkinsons disease Surgical History (Updated 03/07/25 @ 08:27 by Mavis Elliott) Hx of cystoscopy History of adenoidectomy History of laparoscopic appendectomy (~09/03/21) History of History of lithotripsy History of tonsillectomy History of colonoscopy (~2015) History of hysterectomy (~2011) History of cholecystectomy (~2001) Social History household members: spouse and children housing: house number of children: 3 current occupational status: employed pets and animals: Yes Smoking Status: Never smoker alcohol intake: never substance use type: does not use caffeine: Yes (occasional) what type of physical activity do you participate in: none seatbelt use: always do you feel safe at home: Yes Review of Systems (Anesthesia) ROS Narrative System reviewed and no additional complaints, except as documented. 04/05/25922 > Date _ Jose Ramon White MD Cosigner Signature: Date CC: ~ Signed [facility]07-15-2025 NoteHNO ID: [id number] Author: SILVANA WARD APRN.SPOT CHECKER Service: ? Author Type: Nurse Practitioner Type: Progress Notes Filed: 03/13/2025 11:07 Note Text: This is a 49 year old female who presents today with: Elizabethnancy Babb is a 49-year-old female with a [...] - Scheduled for knee surgery with Dr. Smith on April 05 for a root tear; [...] onset 03/16/21, monoclonal Ab tx per pulmonology [facility] Non morbid obesity 07/15/2016 S/P laparoscopic [...] Supple, no adenopathy; thyroid symmetric, normal size, (more content not included)...[facility]07-15-2025 History of Present illness Narrative* Silvana Ward APRN.[facility] - 03/13/2025 10:58 AM EDT This is a 49 year old female who presents today with: Elizabethnancy Babb is a 49-year-old female with a [...] - Scheduled for knee surgery with Dr. Smith on April 05 for a root tear; [...] onset 03/16/21, monoclonal Ab tx per pulmonology [facility] Non morbid obesity 07/15/2016 S/P laparoscopic [...] kg (245 lb) SpO2 97% BMI 38.01 kg/m PHYSICAL EXAM: General Appearance: Well appearing, [...] deformities, ulcers, calluses, normal distal pulses, and sensitiveto 10 gm monofilament ASSESSMENT/PLAN 1. Routine physical examination (Z00.00) - Completed comprehensive physical examination. - No acute abnormalities noted. Health Promotion: - Eat healthy -- go to [employer] to get started - Have a yearly [...] complication, without long-term current use of insulin ([facility]) (E11.9) 3. Class 2 severe obesity due to excess calories with serious comorbidity and body mass index (BMI)of 38.0 to 38.9 in adult ([facility]) (E66.812) - Recent lab results indicate [...] meniscus, current injury, right knee, subsequent encounter (R49.145B) - Scheduled for knee surgery on April [address] Veronica. - Will be non-weight bearing for 6-8 weeks post-operatively, followed by partial weight bearing gladys additional 2 weeks. Discussed treatment plan and patient voices understanding. Patient's questions answered appropriately. Medications and potential side effects were discussed and patient voices understanding. Return to the office as scheduled or as needed for worsening/no improvement. Silvana Ward APRN.SPOT CHECKER Recording using [employer] software for draft documentation of the visit was discussed with the patient/authorized medical representative; all questions welcomed and answered. Patient/authorized medical representative agreed to proceed documented in this encounterTri[facility]07[facility] Instructions* Patient Instructions* Silvana Ward APRN.CNP - 03/13/2025 9:16 AM EDT - Increased metformin to 2 tablets by mouth daily; you may take both with breakfast or split between breakfast and dinner if you notice diarrhea. - Refill for lisinopril has been sent to [facility]; pick it up as soon as it s ready. - Prior authorization has been submitted for Mounjaro (weekly semaglutide) to [employer]; if approved, tack picker the first four starter doses. - Do not begin Mounjaro until you ve recovered from your knee surgery--hold it through your procedure and initial recovery. - Inject Mounjaro once weekly in your belly or thigh; if you develop nausea, switch to the thigh injection site. Check in between week 3-4. - Start Miralax as a daily stool softener if you experience constipation, especially after startingMounjaro; ensure you drink plenty of water. You [...] Mounjaro and authorize dose escalation if appropriate. documented in this encounterTri[facility]04-19-2025 Evaluation note* Diagnosis Onset Date Resolution Status Admit Date Cough acute December 16 12:17pm Nasal congestion acute December 162024 12:17pm PND (post-nasal drip) acute Nov 12:17pm Rhinorrhea acute December 16 12:17pm Anal fissure acute December 22, 2024 1:53pm [facility] Work Phone: 1(917) 979-170303-30-2025 Evaluation note* Diagnosis Onset Date Resolution Status Admit Date Maxillary sinusitis acute November 26, 2024 9:47am Cough acute December 16 12:17pm Nasal congestion acute December 162024 12:17pm PND (post-nasal drip) acute Nov 12:17pm Rhinorrhea acute December 16 12:17pm Anal fissure acute December 22, 2024 1:53pm [facility] Work Phone: 1(821) 531-367703-10-2025 Telephone encounter Note* Telephone Encounter - Silvana Ward APRN.CNP - 11/06/2024 1:04 PM EDT Yes, she can switch to me. We did a physical back in March. We just didn't officially change her yet, as I don't think we new what Giancarlo's intent was. It is okay to change. Silvana Ward APRN.CNP [facility]03-10-2025 Miscellaneous Notes* Telephone Encounter - Silvana Ward APRN.CNP - 11/06/2024 1:04 PM EDT Yes, she can switch to me. We did a physical back in March. We just didn't officially change her yet, as I don't think we new what Giancarlo's intent was. It is okay to change. Silvana Ward APRN.SCOOTER * Telephone Encounter - Mayr Broussard MA - 11/06/2024 10:02 AM EDT See pt message. Are you okay with taking this patient on? Looks like you've been seeing this patient the most. Mary Broussard MA documented in this encounterTri[facility]03-10-2025 Telephone encounter Note * Telephone Encounter - Mary Broussard MA - 11/06/2024 10:02 AM EDT See pt message. Are you okay with taking this patient on? Looks like you've been seeing this patient the most. Mary Broussard MA [facility]03-10-2025 Telephone encounter Note* Telephone Encounter - Delfina Wharton LPN - 11/06/2024 9:53 AM EDT This was sent to the incorrect pharmacy. [facility]03-10-2025 Miscellaneous Notes* Telephone Encounter - Delfina Wharton LPN - 11/06/2024 9:53 AM EDT This was sent to the incorrect pharmacy. documented in this encounterTrihealth [facility]03-04-2025 Telephone encounter Note * Telephone Encounter - Jong Weems MD - 10/31/2024 2:18 PM EST She is due for follow up. Also needs to change to a provider accepting patients as pcp [facility]03-04-2025 Miscellaneous Notes* Telephone Encounter - Jong Weems MD - 10/31/2024 2:18 PM EST She is due for follow up. Also needs to change to a provider accepting patients as pcp * Telephone Encounter - Ania Bruce MA - 10/31/2024 2:04 PM EST Patient has been identified by name and date of : yes Patient phones for refill(s): Requested Prescriptions Pending Prescriptions Disp Refills sertraline (ZOLOFT) 100 mg tablet 90 tablet 3 Sig: Take 1 tablet by mouth once daily. Date of last office visit in primary care: 04/10/2024 Date of next office visit in primary care: Visit date not found Please advise. Thank you. Ania Bruce MA. documented in this encounterTri[facility]03-04-2025 Telephone encounter Note * Telephone Encounter - Ania Bruce MA - 10/31/2024 2:04 PM EST Patient has been identified by name and date of : yes Patient phones for refill(s): Requested Prescriptions Pending Prescriptions Disp Refills sertraline (ZOLOFT) 100 mg tablet 90 tablet 3 Sig: Take 1 tablet by mouth once daily. Date of last office visit in primary care: 04/10/2024 Date of next office visit in primary care: Visit date not found Please advise. Thank you. Ania Bruce MA. [facility]02-27-[facility] Evaluation note* Diagnosis Onset Date Resolution Status Admit Date Encounter for cosmetic laser procedure acute October 26, 2 025 9:14am Acute hemorrhoid acute November 092024 10:31am NAFLD (nonalcoholic fatty liver disease) acute November 09, 2024 10:31am Maxillary sinusitis acute November 26, 2024 9:47am Cough acute December 16 12:17pm Nasal congestion acute December 162024 12:17pm PND (post-nasal drip) acute Nov 12:17pm Rhinorrhea acute December 16 12:17pm [facility] Work Phone: 1(143) 316-188111-14-2024 Telephone encounter Note* Telephone Encounter - Odessa Chu APRN.CNP - 07/13/2024 8:10 AM EST The following approved medication requests have been transmitted electronically. Requested Prescriptions Pending Prescriptions Disp Refills metFORMIN ER (GLUCOPHAGE XR) 500 mg 24 hr tablet 30 tablet 5 Sig: Take 1 tablet by mouth daily with breakfast. Odessa Chu APRN.CNP [facility]11-14-2024 Miscellaneous Notes* Telephone Encounter - Odessa Chu APRN.CNP - 07/13/2024 8:10 AM EST The following approved medication requests have been transmitted electronically. Requested Prescriptions Pending Prescriptions Disp Refills metFORMIN ER (GLUCOPHAGE XR) 500 mg 24 hr tablet 30 tablet 5 Sig: Take 1 tablet by mouth daily with breakfast. Odessa Chu APRN.CNP * Telephone Encounter - Linda Menjivar LPN - 07/12/2024 3:13 PM EST The patient has been identified by name and date of : Yes Caregiver verified no other encounters exist for this prescription request: Yes Caregiver confirmed with patient/requestor that no other refills are due, in the near future, with this provider at this time: Yes The last office visit in the department: 04/10/2024 Does the patient have a future office visit with this provider/department: No Requested Prescriptions Pending Prescriptions Disp Refills metFORMIN ER (GLUCOPHAGE XR) 500 mg 24 hr tablet 30 tablet 5 Sig: Take 1 tablet by mouth daily with breakfast. iLnda Menjivar LPN July 12, 2024 3:14 PM documented in this encounterTri[facility]11-13-2024 Telephone encounter Note * Telephone Encounter - Linda Menjivar LPN - 07/12/2024 3:13 PM EST The patient has been identified by name and date of : Yes Caregiver verified no other encounters exist for this prescription request: Yes Caregiver confirmed with patient/requestor that no other refills are due, in the near future, with this provider at this time: Yes The last office visit in the department: 04/10/2024 Does the patient have a future office visit with this provider/department: No Requested Prescriptions Pending Prescriptions Disp Refills metFORMIN ER (GLUCOPHAGE XR) 500 mg 24 hr tablet 30 tablet 5 Sig: Take 1 tablet by mouth daily with breakfast. Linda Menjivar LPN July 12, 2024 3:14 PM [facility]09-05-2024 Telephone encounter Note* Telephone Encounter - Odessa Chu APRN.CNP - 05/04/2024 5:04 PM EDT The following approved medication requests have been transmitted electronically. Requested Prescriptions Pending Prescriptions Disp Refills lisinopril (ZESTRIL) 10 mg tablet 90 tablet 3 Sig: Take 1 tablet by mouth once daily. Odessa Chu APRN.CNP [facility]09-05-2024 Miscellaneous Notes* Telephone Encounter - Odessa Chu APRN.CNP - 05/04/2024 5:04 PM EDT The following approved medication requests have been transmitted electronically. Requested Prescriptions Pending Prescriptions Disp Refills lisinopril (ZESTRIL) 10 mg tablet 90 tablet 3 Sig: Take 1 tablet by mouth once daily. Odessa Chu APRN.CNP * Telephone Encounter - Shauna Kennedy LPN - 05/04/2024 3:28 PM EDT Prescription Refill Information The patient has been identified by name and date of : Yes Caregiver verified no other encounters exist for this prescription request: Yes Caregiver confirmed with patient/requestor that no other refills are due, in the near future, with this provider at this time: Yes The last office visit in the department: 04/10/24 Does the patient have a future office visit with this provider/department: No Yearly due March 2025 Requested Prescriptions Pending Prescriptions Disp Refills lisinopril (ZESTRIL) 10 mg tablet 90 tablet 3 Sig: Take 1 tablet by mouth once daily. Shauna Kennedy LPN May 04, 2024 3:28 PM documented in this encounterTri[facility]09-05-2024 Telephone encounter Note * Telephone Encounter - Shauna Kennedy LPN - 05/04/2024 3:28 PM EDT Prescription Refill Information The patient has been identified by name and date of : Yes Caregiver verified no other encounters exist for this prescription request: Yes Caregiver confirmed with patient/requestor that no other refills are due, in the near future, with this provider at this time: Yes The last office visit in the department: 04/10/24 Does the patient have a future office visit with this provider/department: No Yearly due March 2025 Requested Prescriptions Pending Prescriptions Disp Refills lisinopril (ZESTRIL) 10 mg tablet 90 tablet 3 Sig: Take 1 tablet by mouth once daily. Shauna Kennedy LPN May 04, 2024 3:28 PM [facility]08-12-[facility] Instructions* Patient Instructions* Silvana Ward APRN.SCOOTER - 04/10/2024 8:45 AM EDT Get additional labwork. Do sleep study. Schedule mammogram. documented in this encounterTrihealth [facility]08-12-2024 History of Present illness Narrative* Silvana Ward APRN.CNP - 04/10/2024 8:19 AM EDT This is a 49 year old female who presents today with: Patient presents with: Yearly Exam HISTORY OF PRESENT ILLNESS: Elizabeth Babb is a 49 year old female. Patient presents with: Yearly Exam Pt presents today for work-related wellness exam. REVIEW OF SYSTEMS GENERAL: No weight loss, malaise or fevers/chills. + fatigue. HEENT: Negative for frequent or significant headaches, No changes in hearing. Wearing bifocals. NECK: Negative for lumps, goiter, pain and significant neck swelling RESPIRATORY: Negative for cough, hemoptysis, wheezing, dyspnea or shortness of breath CARDIOVASCULAR: Negative for chest pain, orthopnea, or palpitations, gets some let swelling. GI: No nausea, vomiting. Gets diarrhea w/ metformin. No hematochezia/melena. No heartburn or refluxsymptoms. : No history of dysuria, frequency or incontinence MUSCULOSKELETAL: Negative for joint pain or swelling. Tore mensicus in the left knee - following with Dr. Smith. SKIN: Negative for lesions, rash, and itching ENDOCRINE: Negative for cold or heat intolerance, polyuria, polydipsia and goiter. Hot all the time. NEURO: No history of headaches, syncope, paralysis, seizures or tremors Noticed a breast lump. Noticed last week. Left breast. No pain. Hasn't changed since she first noticed. No family hx of breast. No nipple discharge. Some anxiety: Has a lot of situational anxiety currently. Stable and managing on the sertraline. Does not want to change dosage at this time. PAST MEDICAL HISTORY: PAST MEDICAL HISTORY 09/03/2021: Abnormal computed tomography angiography (CTA) of abdomen and pelvis Comment: CT ab/pel w/con: fatty liver, 3mm stone right kdney No date: Anxiety No date: Benign neoplasm of colon No date: Fatty liver Comment: seen on CT No date: Kidney stones Comment: last one 200403/19/2021: Lab test positive for detection of COVID-19 virus Comment: Sx onset 03/16/21, monoclonal Ab tx per pulmonology [facility] 07/15/2016: Non morbid obesity 09/03/2021: S/P laparoscopic appendectomy PAST SURGICAL HISTORY No date: ADENOIDECTOMY PRIMARY <AGE 12 Comment: Adenoidectomy 09/03/2021: APPENDECTOMY No date: DELIVERY ONLY Comment: , low transverse 2001 or 2002: CHOLECYSTECTOMY 06/23/2006: COLONOSCOPY Comment: adenomatous polyp 07/24/2009: COLONOSCOPY Comment: normal 07/08/2012: COLONOSCOPY FLX DX W/COLLJ SPEC WHEN PFRMD Comment: hyperplastic 07/29/2016: COLONOSCOPY FLX DX W/COLLJ SPEC WHEN PFRMD Comment: Colonoscopy (MAC) No date: DILATION & CURETTAGE DX&/THER NONOBSTETRIC Comment: Dilation & curettage 07/29/2016: ESOPHAGOGASTRODUODENOSCOPY TRANSORAL DIAGNOSTIC Comment: EGD (MAC) No date: F LITHOTRIPSY Comment: X 2 No date: PAST SURGICAL HISTORY OF Comment: pilonidal cyst No date: TONSILLECTOMY PRIMARY/SECONDARY AGE 12/> 08/30/2011: TOTAL ABDOMINAL HYSTERECT W/WO RMVL TUBE OVARY Comment: due to bleeding, has ovaries ALLERGIES Latex, Penicillins, and Sulfa (Sulfonamide Antibiotics) MEDICATIONS Current Outpatient Medications Medication Sig sertraline (ZOLOFT) 100 mg tablet Take 1 tablet by mouth once daily. metFORMIN ER (GLUCOPHAGE XR) 500 mg 24 hr tablet Take 1 tablet by mouth daily with breakfast. lisinopril (ZESTRIL) [...] use: No Drug use: No EXAM: BP 110/72 Pulse 68 Resp 16 Ht 171 cm (5' 7.32) Wt 112.9 kg (249 lb) SpO2 95% BMI 38.63kg/m PHYSICAL EXAM: General Appearance: Well appearing, alert, in no acute distress, well-hydrated, well nourished.. Skin: Skin color, texture, turgor normal, no suspicious rashes or lesions. Head: Normocephalic, no masses, lesions, tenderness or abnormalities. Eyes: Anicteric sclera. Extraocular movements are intact. . Ears: External ears normal, canals clear. Normal TMs bilaterally. Oropharynx: Lips, mucosa, and tongue normal, teeth and gums normal, oropharynx normal. Neck: Supple, no adenopathy; thyroid symmetric, normal size, no bruits. Lungs: Lungs clear to auscultation. No wheezing, rhonchi, rales.. Heart: RRR without murmur, gallop, or rubs. No ectopy. Breast: grape sized lump in the left breast -- appx 12:00 position, mobile. Abdomen: Abdomen soft, non-tender. Bowel sounds normal. No masses, organomegaly. Extremities: No deformities, edema, skin discoloration, clubbing or cyanosis. Good capillary refill. . Neurologic: Gait normal. Reflexes normal and symmetric. Sensation grossly intact.. ASSESSMENT/PLAN: 1. Wellness examination - ICD9: V70.0, ICD10: Z00.00 (primary diagnosis) - Counseled on healthy diet and regular exercise - Follow up for annual exam in one year Health Promotion: - Eat healthy -- go to [email or web address] to get started - Have a yearly [...] text and drive - Wear sunscreen 2. Prediabetes - ICD9: 790.29, ICD10: R73.03 Elevated fasting glucose. Get A1C. - HEMOGLOBIN A1C 3. Fatigue, unspecified type - ICD9: 780.79, ICD10: R53.83 Check thyroid. Admits to fatigue and snoring. Agreeable to home sleep study. - THYROID STIMULATING HORMONE - HOME SLEEP APNEA TEST (HSAT) 4. Mass of left breast, unspecified quadrant - ICD9: 611.72, ICD10: N63.20 Will get imaging. Follow-up pending results. - ROCIO DIAGNOSTIC BILATERAL - US BREAST LTD LEFT 5. Adjustment reaction with anxiety and depression - ICD9: 309.28, ICD10: F43.23 Continue w/ sertraline. Discussed possibly increasing dosage. She will notify provider if she thinks dose needs increased. Discussed treatment plan and patient voices understanding. Patient's questions answered appropriately. Medications and potential side effects were discussed and patient voices understanding. Return to the office as scheduled or as needed for worsening/no improvement. Silvana Ward APRN.SPOT CHECKER documented in this encounterTri[facility]05-29-[facility]24 Telephone encounter Note * Telephone Encounter - Leander Swanson LPN - 01/26/2024 4:07 PM EDT OV notes/results faxed to Dr. Wen's office. Leander Swanson LPN [facility]05-29-2024 Miscellaneous Notes* Telephone Encounter - Leander Swanson LPN - 01/26/2024 4:07 PM EDT OV notes/results faxed to Dr. Wen's office. Leander Swanson LPN * Telephone Encounter - Leander Swanson LPN - 01/26/2024 2:01 PM EDT Received fax asking for last office note or GI referral for pt. She has an upcoming appt with Dr. Wen. Leander Swanson LPN documented in this encounterTrihealth [facility]05-29-2024 Telephone encounter Note * Telephone Encounter - Leander Swanson LPN - 01/26/2024 2:01 PM EDT Received fax asking for last office note or GI referral for pt. She has an upcoming appt with Dr. Behzad. Leander Swanson LPN [facility]04-25-2024 Procedure [facility]04-05-2024 Discharge summary Author Mena Duggan [facility] December 03, 2023 10:07am Note Date/Time December 03, 2023 10:0 7am [facility] Medical Records Department [address] [place] [address] Instructions for Home/Discharge Instructions 12/03/23 1006 MR#: [id number] Acct: [id number] Name: ELIZABETH BABB Rep #:[id number] : 1975 48 From: Mena Leal PCP: KENISHA Pham Status:REG S DC Discharge Instructions Diet Discharge Diet: No restrictions Activity Discharge Activity: Return to Normal Activity Dressing / Incision Call your doctor if you observe: Fever of 101 or Higher, Inability to urinate and Inability to have a bowel movement Follow Up Care Please Follow Up With: Mena Duggan MD When: Schedule follow up appointment in 3 months, sooner if issues. Test Results: Test results from this visit will be discussed in further detail at your follow- up appointment, if applicable. Discharge Plan Admission Attending Provider: Mena Duggan Primary Care Provider: Silvana Ward NP Discharge Orders/Prescriptions Prescriptions: Continued sertraline 100 MG tablet 100 mg PO QHS lisinopril 10 MG tablet 10 mg PO QHS metformin 500 mg tablet extended release 24 hr 500 mg PO DAILY Referrals / Follow Up: Silvana Ward NP, INSULATION INSPECTOR-C [Primary Care Provider] - Disposition Disposition (needs filled in before D/C Order can be placed): Home, Self Care 12/03/23 1007<Electronically signed by Mena Duggan MD>Mena Duggan MD CC: INSULATION INSPECTOR-C Silvana Ward ~ Signed [facility] Work Phone: [phone] Procedure [facility] 08-10-2023 Miscellaneous Notes* Telephone Encounter - Leander Swanson LPN - 08/10/2023 8:16 AM EST MC message sent. Waiting for response. Leander Swanson * Telephone Encounter - Silvana Ward APRN.CNP - 08/09/2023 7:21 PM EST Can please let patient know that I received her CT results. It shows a small stone in the left kidney and the fatty liver. Otherwise, the imaging was normal. Was she able to schedule w/ urology? Silvana Ward APRN.SCOOTER * Telephone Encounter - Leander Swanson LPN - 08/09/2023 7:16 PM EST Results of CT scanned into [facility]. Scan on 08/06/2023 4:21 PM by Provider, KAVON Taylor: CT Scan * Telephone Encounter - Leander Swanson LPN - 08/06/2023 1:23 PM EST TC to pt, notified of results. She verbalized understanding. She is waiting on authorization from insurance before scheduling. She is going to call insurance today to see if she is authorized. She will let me know once she talks to insurance. Leander Swanson * Telephone Encounter - Silvana Ward APRN.CNP - 08/06/2023 10:11 AM EST Can please let patient know below. Is she scheduled for the CT? Or urology? * Telephone Encounter - Gissell Lowery Ma - 08/06/2023 9:21 AM EST Culture shows no growth. * Telephone Encounter - Jong Weems MD - 08/05/2023 5:30 PM EST It shows blood. No white cells under microscope. Is culture done yet, that is not here yet which iswhat is needed. * Telephone Encounter - Ania Bruce Ma - 08/05/2023 11:44 AM EST Patient calling in wanting to know if someone can look at urine results and if possible infection present? Ordering provider out of office and was sent results on 08/03. Ania Bruce Ma * Telephone Encounter - Leander Swanson LPN - 08/03/2023 4:58 PM EST Results of labs from [facility]. Scan on 08/03/2023 2:18 PM by ProviderBrandon PA-C: Hematology Scan on 08/03/2023 3:14 PM by Brandon Sun PA-C: Miscellaneous Lab Scan on 08/03/2023 2:41 PM by Brandon Sun PA-C: Chemistry documented in this encounterTrihealth [facility]12-04-2023 History of Present illness Narrative* Silvana Ward APRN.CNP - 08/02/2023 4:34 PM EST This is a 48 year old female who presents today with: Patient presents with: Hematuria HISTORY OF PRESENT ILLNESS: Elizabeth Babb is a 48 year old female. Patient [...] ultrasound on 06/22/2023. This showed hepatomegaly with diffusefatty infiltration of the liver, no discrete lesion. Previous cholecystectomy. Nonobstructing rightnephrolithiasis. PAST MEDICAL HISTORY: PAST MEDICAL HISTORY Diagnosis Date Abnormal computed tomography angiography (CTA) of abdomen and pelvis 09/03/2021 CT ab/pel w/con: fatty liver, 3mm stone right kdney Anxiety Benign neoplasm of colon Fatty liver seen on CT Kidney stones last one 2004 Lab test positive for detection of COVID-19 virus 03/19/2021 Sx onset 03/16/21, monoclonal Ab tx per pulmonology [facility] Non morbid obesity 07/15/2016 S/P laparoscopic [...] to have any further testing done at [facility]. She will get further urinalysis/culture and [...] as needed for worsening/no improvement. Silvana Ward APRN.CNP documented in this encounterTrihealth [facility]10-24-2023 Miscellaneous Notes* Telephone Encounter - Silvana Ward APRN.CNP - 06/22/2023 4:36 PM EDT Mammo normal. Pt notified via [employer]. Silvana Ward APRN.SCOOTER * Telephone Encounter - Mary Broussard Ma - 06/22/2023 11:15 AM EDT Office received Mammogram results as ordered by Silvana. See results below and advise. Mary Broussard Ma [facility] - Mammography [ID [id number]] documented in this encounterTrihealth [facility]09-25-2023 Miscellaneous Notes* Telephone Encounter - Leander Swanson LPN - 05/24/2023 8:55 AM EDT Form faxed. Leander Swanson LPN * Telephone Encounter - Silvana Ward APRN.CNP - 05/24/2023 7:53 AM EDT Form complete -- please fax back, as requested. Silvana Ward APRN.CNP * Telephone Encounter - Linda Menjivar LPN - 05/19/2023 2:58 PM EDT Pt called and she reports she saw Silvana Ward for her wellness exam on 04/06/23. Pt works for [facility] and has a short form that needs to be completed and faxed back to her. FAX: [phone]. Type of form: 2022 Healthy Living program form Form received via fax When form is completed, Fax form to [phone] Form has been delivered to Silvana Ward's office. Laid on nurses desk. Silvana is out of the office. Pt is asking to have this filled out when she returns. Linda Menjivar LPN documented in this encounterTrihealth [facility]09-07-2023 Miscellaneous Notes* Telephone Encounter - Kristi Flowers - 05/06/2023 11:20 AM EDT POPULATION HEALTH NAVIGATION OUTREACH Action/I 1st call-[facility] and Lucibel message regarding consult to ORTHOPEDICS. Patient Identified by Name and : NO Outreach Outcome/Action Unable to reach patient: Left message Sploret message sent Did you use a PCP flex slot to schedule this appointment? N/A Reason for Outreach Care Gap or Scheduling/Wellness visits Payer: Payor: AETNA / Plan: AETNA [facility] / Product Type: PPO / Care Gap Reviewed:: Specialty Scheduling Reminder: Reminder note to check Health Maintenance for items below Health Maintenance items due: HEPATITIS B(1 of 3 - 3-dose series) Never done COVID-19 VACCINE(1) Never done BP CONTROLLED (<130/80) due on 05/20/2021 INFLUENZA(1) due on 04/30/2023 MAMMOGRAM due on 06/19/2023 Navigation Signature: Kristi Flowers May 06, 2023 11:20 AM documented in this encounterTrihealth [facility]08-08-2023 Instructions* Patient Instructions* Silvana Ward APRN.SPOT CHECKER - 04/06/2023 9:04 AM EDT Get the repeat labs. Schedule with ortho. Schedule with dermatology. Schedule ultrasound. Schedule mammogram. Health Promotion: - Eat healthy -- go to [employer] to get started - Have a yearly [...] drive - Wear sunscreen documented in this encounterTrihealth [facility]08-08-2023 History of Present illness Narrative* Silvana Ward APRN.CNP - 04/06/2023 8:20 AM EDT This is a 48 year old female who presents today with: Patient presents with: Yearly Exam HISTORY OF PRESENT ILLNESS: Elizabeth Babb is a 48 year old female. Patient [...] pain. Nothing excruciating. Going to go to [facility] for skin cancer screening. Requesting a [...] onset 03/16/21, monoclonal Ab tx per pulmonology [facility] Non morbid obesity 07/15/2016 S/P laparoscopic [...] 64 Resp 16 Ht 169 cm (5' 6.54) Wt 111.1 kg (245 lb) SpO2 98% BMI 38.91kg/m PHYSICAL EXAM: General Appearance: Well appearing, alert, [...] Promotion: - Eat healthy -- go to [employer] to get started - Have a yearly [...] up for mammogram, yearly mammogram recommended - [facility] SCRE[facility] [place] Discussed treatment plan and patient voices understanding. Patient's questions answered appropriately. Medications and potential side effects were discussed and patient voices understanding. Return to the office as scheduled or as needed for worsening/no improvement. Silvana Ward APRN.SPOT CHECKER documented in this encounterTrihealth [facility]10-04-2022 Miscellaneous Notes* Telephone Encounter - Leander Swanson LPN - 06/02/2022 3:30 PM EDT Received via fax approval letter from pt insurance. Pt is referral approved from 06/02/22 thru 06/02/23. Approval letter faxed to Dr. Josue's office. Pt notified via . Leander Swanson LPN * Telephone Encounter - Leander Swanson LPN - 06/02/2022 3:18 PM EDT Referral entered for Dr. Josue on 05/22 and is currently pending authorization. Leander Swanson LPN * Telephone Encounter - Hari Moss PA-C - 05/29/2022 2:27 PM EDT please see prior message: print and send Thanks, Giancarlo Moss PA-C * Telephone Encounter - Sheila Wahl RN - 05/29/2022 1:58 PM EDT Kim with [facility] called in and reports Pts insurance needs an order for Pt to see a Vp Customer Service. Let her know that Pt already had a consult in and she states that she also needs one sent to her insurance. She states the phone # to call is [phone]. Pt is seeing Dr Josue. documented in this encounterTrihealth [facility]08-26-2022 Miscellaneous Notes* Telephone Encounter - Silvana Ward APRN.CNP - 04/24/2022 1:31 PM EDT Script sent. Silvana Ward APRN.SPOT CHECKER * Telephone Encounter - Daiana Ramos Cma - 04/24/2022 1:12 PM EDT Patient notified and verbalized understanding patient is going to see the [facility] cardiology. She needs refills on her zoloft and lisinopril- pended please sign Daiana Ramos Cma * Telephone Encounter - Silvana Ward APRN.CNP - 04/24/2022 12:55 PM EDT Can please let patient know that we received her echocardiogram results. It does show some mild-moderate calcification around her mitral valve. Her heart function/strength is normal. So, likely nothing to do about this at this time other to continue to watch for any progression/worsening. Let's go ahead and get her set up with cardiology forfurther recommendations. Referral placed. Silvana Ward APRN.CNP * Telephone Encounter - Ania Bruce Ma - 04/23/2022 10:10 AM EDT Please review in scanned documents Cardiac Echo was done that you ordered 03/24 Ania Bruce Ma documented in this encounterTrihealth [facility]07-28-2022 Miscellaneous Notes* Telephone Encounter - Tracey Naik Ma - 03/26/2022 8:10 AM EDT Pt notified of results via mychart. Tracey Naik Ma * Telephone Encounter - Silvana Ward APRN.CNP - 03/25/2022 5:44 PM EDT Can please let patient know that her additional lab work was normal. * Telephone Encounter - Mary Broussard Ma - 03/25/2022 10:53 AM EDT Office received lab results that were ordered by Silvana Ward CNP. Will route lab results to to review and advise. Mary Broussard Ma documented in this encounterTrihealth Good [facility]07-26-2022 Instructions* Patient Instructions* Silvana Ward APRN.CNP - 03/24/2022 1:40 PM EDT 1. Schedule EKG, echo, and event monitor. 2. Get labs. 3. If you get any sustained palpitations, or palpitations associated w/ other symptoms (pain, shortness of breath, dizziness, etc) -- go to the ER. Health Promotion: - Eat healthy go to Digital [employer]gov to get started - Have a yearly [...] drive - Wear sunscreen documented in this encounterTrihealth [facility]07-26-2022 History of Present illness Narrative* Silvana Ward APRN.CNP - 03/24/2022 1:10 PM EDT This is a 47 year old female who presents today with: Patient presents with: Yearly Exam HISTORY OF PRESENT ILLNESS: Elizabeth Babb is a 47 year old female. Patient [...] since that time. Refers that she has hadimaging, which has been negative. GI: No nausea, [...] onset 03/16/21, monoclonal Ab tx per pulmonology [facility] Non morbid obesity 07/15/2016 S/P laparoscopic [...] 70 Resp 18 Ht 170 cm (5' 6.93) Wt 111.6 kg (246 lb) SpO2 96% BMI 38.61kg/m PHYSICAL EXAM: General Appearance: Well appearing, alert, [...] Health Promotion: - Eat healthy go to [employer] to get started - Have a yearly [...] palpitations or palpitations accompanied by other symptoms, sheshould proceed to the ER. - ECG COMPLETE [...] as needed for worsening/no improvement. Silvana Ward APRN.SCOOTER This note was partially generated using [employer] voice recognition system. Note was reviewed for accuracy. There may be minor misspellings or grammar miscues with [employer] voice recognition. documented in this encounterTrihealth [facility]07-10-2015 History of Past illness Narrative* Problem Noted Date Resolved Date Laryngitis 03/08/2015 07/15/2016 Counseling and coordination of care 01/29/2015 05/14/2015 documented as of this encounter (statuses as of 03/20/2022) [address]10-2015 History of Past illness Narrative* Problem Noted Date Resolved Date Laryngitis 03/08/2015 07/15/2016 Counseling and coordination of care 01/29/2015 05/14/2015 documented as of this encounter (statuses as of 03/23/2022) [address]10-2015 History of Past illness Narrative* Problem Noted Date Resolved Date Laryngitis 03/08/2015 07/15/2016 Counseling and coordination of care 01/29/2015 05/14/2015 documented as of this encounter (statuses as of 03/24/2022) [address]10-2015 History of Past illness Narrative* Problem Noted Date Resolved Date Laryngitis 03/08/2015 07/15/2016 Counseling and coordination of care 01/29/2015 05/14/2015 documented as of this encounter (statuses as of 03/26/2022) [address]10-2015 History of Past illness Narrative* Problem Noted Date Resolved Date Laryngitis 03/08/2015 07/15/2016 Counseling and coordination of care 01/29/2015 05/14/2015 documented as of this encounter (statuses as of 04/24/2022) [facility] of [facility] illness Narrative* Problem Noted Date Resolved Date Laryngitis 03/08/2015 07/15/2016 Counseling and coordination of care 01/29/2015 05/14/2015 documented as of this encounter (statuses as of 05/22/2022) [facility] of Past illness Narrative* Problem Noted Date Resolved Date Laryngitis 03/08/2015 07/15/2016 Counseling and coordination of care 01/29/2015 05/14/2015 documented as of this encounter (statuses as of 06/02/2022) [address]2015 History of Past illness Narrative* Problem Noted Date Diagnosed Date Resolved Date Laryngitis 03/08/2015 07/15/2016 Counseling and coordination of care 01/29/2015 05/14/2015 documented as of this encounter (statuses as of 04/07/2023) [address]2015 History of Past illness Narrative* Problem Noted Date Diagnosed Date Resolved Date Laryngitis 03/08/2015 07/15/2016 Counseling and coordination of care 01/29/2015 05/14/2015 documented as of this encounter (statuses as of 04/07/2023) [address]-2015 History of Past illness Narrative* Problem Noted Date Diagnosed Date Resolved Date Laryngitis 03/08/2015 07/15/2016 Counseling and coordination of care 01/29/2015 05/14/2015 documented as of this encounter (statuses as of 05/06/2023) [address]10-2015 History of Past illness Narrative* Problem Noted Date Diagnosed Date Resolved Date Laryngitis 03/08/2015 07/15/2016 Counseling and coordination of care 01/29/2015 05/14/2015 documented as of this encounter (statuses as of 05/20/2023) [address]10[address]2015 History of Past illness Narrative* Problem Noted Date Diagnosed Date Resolved Date Laryngitis 03/08/2015 07/15/2016 Counseling and coordination of care 01/29/2015 05/14/2015 documented as of this encounter (statuses as of 05/24/2023) [address]10[address]2015 History of Past illness Narrative* Problem Noted Date Diagnosed Date Resolved Date Laryngitis 03/08/2015 07/15/2016 Counseling and coordination of care 01/29/2015 05/14/2015 documented as of this encounter (statuses as of 06/23/2023) [address]2015 History of Past illness Narrative* Problem Noted Date Diagnosed Date Resolved Date Laryngitis 03/08/2015 07/15/2016 Counseling and coordination of care 01/29/2015 05/14/2015 documented as of this encounter (statuses as of 08/03/2023) [address]10-2015 History of Past illness Narrative* Problem Noted Date Diagnosed Date Resolved Date Laryngitis 03/08/2015 07/15/2016 Counseling and coordination of care 01/29/2015 05/14/2015 documented as of this encounter (statuses as of 11/22/2023) [facility] [address] [place] [address] Anesthesia Postop Eval II 05/29/252222 MR#: [id number] Acct: [id number] Name: ELIZABETH BABB Rep #:[id number] : 1975 50 From: Max Hall MD PCP: KENISHA Pham Status:DEP S DC Y Race: C Location: [facility] Anesthesia Postop Eval I Sum Postop Eval Completion status Anesthesia document: Postop Eval 1 completed: Yes Anesthesia Postop Eval I Summary Anesthesia Postop Eval I Summary: Anesthesia Postop Eval I: Assessment Summary Airway patent Yes 05/29/25 16:10 TOURING PRODUCTION MANAGER.SKOBY Spontaneous unlabored Yes 05/29/25 16:10 TOURING PRODUCTION MANAGER.SKOBY respirations Mental status Awake,Calm 05/29/25 16:10 TOURING PRODUCTION MANAGER.SKOBY nausea No 05/29/25 16:10 TOURING PRODUCTION MANAGER.SKOBY Vomiting No 05/29/25 16:10 TOURING PRODUCTION MANAGER.SKOBY Anesthesia Postop Eval I: Fluid Summary Crystalloid volume administer 700 05/29/25 16:10 TOURING PRODUCTION MANAGER.SKOBY (ml) Colloids volume administered ( ml) Blood Product volume administered (ml) Total IV fluid infused 700 05/29/25 16:10 TOURING PRODUCTION MANAGER.SKOBY Anesthesia Postop Eval I: Summary Notes Anesthesia Complication No 05/29/25 16:10 TOURING PRODUCTION MANAGER.SKOBY Anesthesia Complication Comment: Post-operative progress note Anesthesia: Postop Eval II Evaluation Mental status: Awake and Calm Pain Level: 2 nausea: No Vomiting: No Complications Anesthesia Complication: No 05/29/25 2223 néstor HILLIARD> Date _ Max Hall MD Cosigner Signature: Date CC: ~ Signed [facility] Hospital[facility]ult note Author Tasia Arriaza [facility] Note Date/Time May 29, 2025 4:10pm [facility] Medical Records Department [address] [place] [address] Anesthesia Postop Eval I 05/29/25 1609 MR#: [id number] Acct: [id number] Name: ELIZABETH BABB Rep #:[id number] : 1975 50 From: Tasia ruggiero TOURING PRODUCTION MANAGER PCP: KENISHA Pham Status:REG S DC Y Race: C Location: [place] [address] Anesthesia: Postop Eval I Current Vital Signs Temperature: 98 F Pulse Rate: 84 Blood Pressure: 147/76 Respiratory Rate: 16 Pulse Ox: 97 Oxygen Delivery Method: Room Air Assessment Airway patent: Yes Spontaneous unlabored respirations: Yes Mental status: Awake and Calm nausea: No Vomiting: No Anesthesia Complication: No Fluid Hydration Crystalloid volume administer (ml): 700 Total IV fluid infused: 700 Progress Note Anesthesia document: Postop Eval 1 completed: Yes 05/29/25 1610 <Electronically signed by Tasia glasgow CRNA> Date _ Tasia Arriaza CRNA Cosigner Signature: Date CC: ~ Signed [facility] Work Phone: Consult note Author Max [place] Note Date/Time May 29, 2025 10:23pm [facility] Medical Records Department [address] [place] [address] Anesthesia Postop Eval II 05/29/25 2223 MR#: [id number] Acct: [id number] Name: ELIZABETH BABB Tripp Rep #:[id number] : 1975 50 From: Max Hall MD PCP: KENISHA Pham Status:DEP S DC Y Race: C Location: [facility] Anesthesia Postop Eval I Sum Postop Eval Completion status Anesthesia document: Postop Eval 1 completed: Yes Anesthesia Postop Eval I Summary Anesthesia Postop Eval I Summary: Anesthesia Postop Eval I: Assessment Summary Airway patent Yes 05/29/25 16:10 TOURING PRODUCTION MANAGER.SKOBY Spontaneous unlabored Yes 05/29/25 16:10 TOURING PRODUCTION MANAGER.SKOBY respirations Mental status Awake,Calm 05/29/25 16:10 TOURING PRODUCTION MANAGER.SKOBY nausea No 05/29/25 16:10 TOURING PRODUCTION MANAGER.SKOBY Vomiting No 05/29/25 16:10 TOURING PRODUCTION MANAGER.SKOBY Anesthesia Postop Eval I: Fluid Summary Crystalloid volume administer 700 05/29/25 16:10 TOURING PRODUCTION MANAGER.SKOBY (ml) Colloids volume administered ( ml) Blood Product volume administered (ml) Total IV fluid infused 700 05/29/25 16:10 TOURING PRODUCTION MANAGER.SKOBY Anesthesia Postop Eval I: Summary Notes Anesthesia Complication No 05/29/25 16:10 TOURING PRODUCTION MANAGER.SKOBDaquan Anesthesia Complication Comment: Post-operative progress note Anesthesia: Postop Eval II Evaluation Mental status: Awake and Calm Pain Level: 2 nausea: No Vomiting: No Complications Anesthesia Complication: No 05/29/254 <Electronically signed by Max palm MD> Date _ Max Hall MD Cosigner Signature: Date CC: ~ Signed [facility] Work Phone: Consult note Author Ethan Solitario [facility] Note Date/Time June 07, 2025 1: 59pm [facility] Medical Records Department [address] [place] [id number] Counseling Note - Pharmacy 06/07/25 1322 MR#: [id number] Acct: [id number] Name: ELIZABETH BABB Rep #:[id number] : 1975 50 From: Ethan johnson PCP: KENISHA Pham Status:ADM I NO Y Location: [place] [address] Pharmacy DC Med Reconciliation Pharmacy Service has performed discharge medication reconciliation for this patient. The patient's discharge medication list was reviewed for discrepancies and discrepancies were resolved. Medications at Discharge Home Medications sertraline 100 mg tablet 100 mg PO QHS mental health 08/30/17 lisinopril 10 mg tablet 10 mg PO QHS blood pressure 12/14/17 metformin 500 mg tablet,extended release 24 hr 500 mg PO BID 11/29/23 vitamin E (dl, acetate) 180 mg (400 unit) capsule 180 mg PO BID #60 caps 06/06/24 Hydrocortisone 2.5%/lidocaine 5% suppository (cmpd) #42 ea 11/10/24 cholecalciferol (vitamin D3) 125 mcg (5,000 unit) tablet (Vitamin D3) 125 mcg PODAILY 03/07/25 magnesium 250 mg tablet 250 mg PO DAILY 03/07/25 clindamycin HCl 300 mg capsule (Cleocin HCl) 300 mg PO TID 7 days #21 caps 06/04/25 06/07/25 1322 <Electronically signed by Ethan Low> Date _ Ethan Buitrago Signature (if applicable): Date CC: ~ Signed [facility] Work Phone: Discharge summary Author Riley Swann [facility] Note Date/Time May 29, 2025 3:16pm [facility] Medical Records Department [address] [facility] [address] [place] [address] Instructions for Home/Discharge Instructions 05/29/25 1510 MR#: [id number] Acct: [id number] Name: ELIZABETH BABB Rep #:[id number] : 1975 50 From: Riley Swann MD PCP: MADISYN PhamC Status:REG S DC Discharge Instructions Diet Discharge Diet: Light diet - advance as tolerated Activity Discharge Activity: Return to Normal Activity May shower in (days): 1 Ice area for (Minutes): 30 Lifting Restrictions: None Dressing / Incision Call your doctor if your incision/area has: Continuous Slow Oozing, Sudden Increased Bleeding, Increased Pain/ Swelling, Increased Redness, Foul Smelling Discharge and Swelling at the incision site Call your doctor if you observe: Fever of 101 or Higher Change Dressing in: 1 day Cleanse incision/area with: Soap & Water Additional Dressing/Incision Instructions:: Apply topical anesthetic (Dibucaine)2-3 times daily as needed for pain to the perianal area Follow Up Care Please Follow Up With: Riley Swann MD When: 2 weeks. Please call office to schedule appointment Test Results: Test results from this visit will be discussed in further detail at your follow- up appointment, if applicable. Discharge Plan Admission Primary Reason for Your Visit: Anal fissure Attending Provider: Riley Swann Primary Care Provider: Silvana Ward NP Instructions Print Language: Tajik Discharge Orders/Prescriptions Prescriptions: New oxycodone 5 mg tablet 5 mg PO Q8H PRN (Reason: pain) 4 Days Qty: 16 0RF Continued (DME) Diltiazem 2%/Lidocaine 5% ointment (compound) Ointment See Rx Instructions .Route Qty: 1 0RF Rx Instructions: As directed Mounjaro 2.5 mg/0.5 mL pen injector 2.5 mg subcut STERN Patient Comments: [NO ORIGINAL SIG] sertraline 100 MG tablet 100 mg PO QHS lisinopril 10 MG tablet 10 mg PO QHS cholecalciferol (vitamin D3) [Vitamin D3] 125 mcg (5,000 unit) tablet 125 mcg PO DAILY magnesium 250 mg tablet 250 mg PO DAILY metformin 500 mg tablet extended release 24 hr 500 mg PO BID vitamin E (dl, acetate) 180 mg (400 unit) capsule 180 mg PO BID Qty: 60 3RF (DME) Hydrocortisone 2.5%/lidocaine 5% suppository (cmpd) Suppository See Rx Instructions .Route Qty: 42 0RF Rx Instructions: apply to rectum BID Referrals / Follow Up: Silvana Ward NP, INSULATION INSPECTOR-C [Primary Care Provider, Medical] Disposition Disposition (needs filled in before D/C Order can be placed): Home, Self Care 09/30/25 1516<Electronically signed by Riley Swann MD>Riley Swann MD CC: INSULATION INSPECTOR-C Silvana Ward ~ Signed [facility] Work Phone: Discharge summary Author Riley Swann [facility] Note Date/Time May 29, 2025 4:58pm [facility] Medical Records Department [address] [place] [address] Instructions for Home/Discharge Instructions 05/29/251515 MR#: [id number] Acct: [id number] Name: ELIZABETH BABB Rep #:[id number] : 1975 50 From: Riley Swann MD PCP: KENISHA Pham Status:REG S DC Discharge Instructions Diet Discharge Diet: Light diet - advance as tolerated Activity May shower in (days): 1 Ice area for (Minutes): 30 Dressing / Incision Call your doctor if your incision/area has: Continuous Slow Oozing, Sudden Increased Bleeding, Increased Pain/ Swelling, Increased Redness, Foul Smelling Discharge and Swelling at the incision site Call your doctor if you observe: Fever of 101 or Higher Cleanse incision/area with: Soap & Water Additional Dressing/Incision Instructions:: Apply topical anesthetic (Dibucaine)2-3 times daily as needed for pain to the perianal area Follow Up Care Please Follow Up With: Riley Swann MD Test Results: Test results from this visit will be discussed in further detail at your follow- up appointment, if applicable. Discharge Plan Admission Primary Reason for Your Visit: Anal fissure Attending Provider: Riley Swann Primary Care Provider: Silvana Ward NP Instructions Print Language: Tajik Discharge Orders/Prescriptions Prescriptions: New oxycodone 5 mg tablet 5 mg PO Q8H PRN (Reason: pain) 4 Days Qty: 16 0RF Continued (DME) Diltiazem 2%/Lidocaine 5% ointment (compound) Ointment See Rx Instructions .Route Qty: 1 0RF Rx Instructions: As directed Mounjaro 2.5 mg/0.5 mL pen injector 2.5 mg subcut STERN Patient Comments: [NO ORIGINAL SIG] sertraline 100 MG tablet 100 mg PO QHS lisinopril 10 MG tablet 10 mg PO QHS cholecalciferol (vitamin D3) [Vitamin D3] 125 mcg (5,000 unit) tablet 125 mcg PO DAILY magnesium 250 mg tablet 250 mg PO DAILY metformin 500 mg tablet extended release 24 hr 500 mg PO BID vitamin E (dl, acetate) 180 mg (400 unit) capsule 180 mg PO BID Qty: 60 3RF (DME) Hydrocortisone 2.5%/lidocaine 5% suppository (cmpd) Suppository See Rx Instructions .Route Qty: 42 0RF Rx Instructions: apply to rectum BID Referrals / Follow Up: Silvana Ward NP, INSULATION INSPECTOR-C [Primary Care Provider, Medical] Disposition Disposition (needs filled in before D/C Order can be placed): Home, Self Care 05/29/25 1516<Electronically signed by Riley Swann MD>Riley Swann MD CC: INSULATION INSPECTOR-C Silvana Ward ~ Signed [facility] Work Phone: Discharge summary Author Caden Cabezas [facility] Note Date/Time June 06, 2025 8: 05am [facility] Medical Records Department [address] [place] [address] Emergency Department Summary 06/06/25 MR#: [id number] Acct: [id number] Name: ELIZABETH BABB Rep #:[id number] : 1975 50 From: Caden Cabezas DO PCP: KENISHA Pham Status:REG E R Location: ED HPI <Dr. Caden Cabezas DO - Last Filed: 06/06/25 07:18> History of Present Illness Chief Complaint: Wound Check Informant: patient and spouse/S.O. Narrative Narrative: Patient is a 50-year-old female with past medical history of hypertension anxiety and depression and fev-gvjvhmf-tckmqcoex diabetes. On May 29 she underwent surgery by Dr. Swann for an anal fissure. She states the surgery wentwell and afterwards she did not experience any type of pain. However after a few days she noticed pain and swelling in the left gluteal region. She then followed up with the general surgeon on June 04. His note at that visit indicates that he felt the area was a small abscess and he was able to express the remaining purulent material. He then started her on clindamycin. Patient states she is taking the clindamycin as directed but has continued to have discharge and reports increased pain and swelling in the region. She denies anytrue fevers but reports she has had subjective fevers and chills and states her temperature at home was low-grade fever at 99.8. As she feels symptoms are worsening despite seeing the surgeon the other day and taking her antibiotic shepresents for evaluation [facility] <Dr. Caden Cabezas DO - Last Filed: 06/06/25 07:18> [facility] Medical History Normal Holter exam Anal fissure Effusion, left knee Diabetes Restless legs Shortness of breath on exertion Leg cramps Cardiology follow-up encounter History of echocardiogram History of stress test Nonrheumatic mitral valve disorder Fatty liver Wears glasses Depression Anxiety Back pain Non-smoker History of edema Hypertension Labral tear of right hip joint Segmental and somatic dysfunction of pelvic region Segmental and somatic dysfunction of lumbar region Segmental and somatic dysfunction of thoracic region Segmental and somatic dysfunction of cervical region Home Medications ?Medication ?Instructions ?Recorded ?Last Taken ?Type sertraline 100 mg tablet 100 mg PO QHS mental health 08/30/17 05/28/25 History lisinopril 10 mg tablet 10 mg PO QHS blood pressure 12/14/17 05/28/25 History metformin 500 mg tablet,extended 500 mg PO BID 4 05/28/25 History release 24 hr vitamin E (dl, acetate) 180 mg 180 mg PO BID #60 caps 06/06/24 Unknown Rx (400 unit) capsule Diltiazem 2% / Lidocaine 5% #1 ea 11/09/24 Unknown Rx ointment (compound) (Diltiazem 2%/Lidocaine 5% ointment (compound)) Hydrocortisone 2.5%/lidocaine 5% #42 ea 11/10/24 Unkno wn Rx suppository (cmpd) cholecalciferol (vitamin D3) 125 125 mcg PO DAILY 05/24 Unknown History mcg (5,000 unit) tablet (Vitamin D3) magnesium 250 mg tablet 250 mg PO DAILY 03/07/25 Unk nown History tirzepatide 2.5 mg/0.5 mL 2.5 mg subcut STERN 05/25/25 History subcutaneous pen injector (Rosasunmichro) clindamycin HCl 300 mg capsule 300 mg PO TID 7 days #2 1 caps 06/04/25 Unknown Rx (Cleocin HCl) fluconazole 150 mg tablet 150 mg PO QDAY 7 days #7 tab s 06/04/25 Unknown Rx Allergy/AdvReac Type Severity Reaction Status Date / Time latex Allergy Swelling, Verified 06/06/25 05:31 itching Penicillins (PCN) Allergy other Verified 06/06/25 05:31 Sulfa (Sulfonamide Allergy Hives, Verified 06/06/25 05:31 Antibiotics) welts Family History Mother Hypertension Thyroid disorder Depression Rheumatoid arthritis Grandmother Parkinsons disease Surgical History Hx of knee surgery Hx of cystoscopy History of adenoidectomy History of laparoscopic appendectomy (~09/03/21) History of History of lithotripsy History of tonsillectomy History of colonoscopy (~2015) History of hysterectomy (~2011) History of cholecystectomy (~2001) Social History household members: spouse and children housing: house number of children: 3 current occupational status: employed pets and animals: Yes Smoking Status: Never smoker alcohol intake: never substance use type: does not use caffeine: Yes (occasional) what type of physical activity do you participate in: none seatbelt use: always do you feel safe at home: Yes ROS <Dr. Caden Cabezas, DO - Last Filed: 06/06/25 07:18> ROS ED Constitutional Constitutional ED: Reports chills, fever(s) and subjective ENT ENT ED: Denies sore throat Cardiovascular Cardiovascular: Denies chest pain Respiratory/Chest Respiratory/Chest: Denies cough or dyspnea Gastrointestinal Gastrointestinal: Reports other Details: Positive rectal pain and rectal discharge ; Denies abdominal pain, diarrhea, nausea or vomiting Genitourinary Genitourinary ED: Denies dysuria Musculoskeletal Musculoskeletal: Denies myalgias Integumentary Denies rash Neurologic Neurologic: Denies headache(s) Psychiatric Psychiatric: Reports anxiety Hematologic/Lymphatic Hematologic/Lymphatic: Denies easy bleeding or easy bruising EXAM <Dr. Caden Cabezas DO - Last Filed: 06/06/25 07:18> Physical Exam Const Vital Signs: 06/06/25 05:31 06/06/25 05:47 06/06/25 07:31 Temperature 98.2 F 98.2 F 98.7 F Temperature Source Oral Oral Oral Pulse Rate 95 95 82 Respiratory Rate 18 18 16 Blood Pressure 135/65 H 135/65 H 122/76 H Blood Pressure Mean 88 88 91 Pulse Ox 96 96 95 Oxygen Delivery Method Room Air Room Air Room Air Positive well nourished, well developed and obese General Appearance ED: well developed Nutritional Appearance: obese HEENT HEENT Narrative: Normocephalic atraumatic Eyes PERRL and EOMs intact bilaterally General Eye ED: Negative for scleral icterus Neck supple Neck Narrative: No nuchal rigidity or meningeal signs Resp normal respiratory effort and clear to auscultation bilaterally Cardio regular rate and regular rhythm Narrative: Rectal exam shows erythema and warmth with a 2 x 2 cm area of induration with pustule present located along the left lateral portion of the rectum/gluteal cleft at approximately the 9 o'clock position. There is purulent discharge present No lymphangitic streaking or crepitance noted Extremity normal to inspection Neuro oriented x3, CN's II-XII intact bilaterally and no sensory deficits noted Sensorium / Orientation: alert Motor Exam: strength 5/5 throughout Psych Mood & Affect: anxious and tearful Skin Skin Narrative: Soft tissue changes along the left lateral portion of the rectum and gluteal cleft as documented above <Dr. Uriel Jolley MD - Last Filed: 06/06/25 08:05> Physical Exam Const Vital Signs: 06/06/25 05:31 06/06/25 05:47 06/06/25 07:31 Temperature 98.2 F 98.2 F 98.7 F Temperature Source Oral Oral Oral Pulse Rate 95 95 82 Respiratory Rate 18 18 16 Blood Pressure 135/65 H 135/65 H 122/76 H Blood Pressure Mean 88 88 91 Pulse Ox 96 96 95 Oxygen Delivery Method Room Air Room Air Room Air MDM <Dr. Caden Cabezas DO - Last Filed: 06/06/25 07:18> MDM MDM Narrative Medical decision making narrative: Patient arrived to the ER with stable vitals. She reports that she was doing well initially after surgery and only a few days later did she develop increasedpain and swelling. Moreover the general surgeons outpatient note was reviewed and he does feel based on her exam that this was an abscess. However at the time when he was able to express the remaining discharge and placed on antibiotics he felt it would improve with that intervention. However as the patient reports return of swelling and pain as well as subjective fevers and chills there is concern for systemic infection or further progression of the abscess infection. Therefore I elected to perform basic laboratory studies to assess for leukocytosis lactic acidosis and left shift. The case was discussed with the general surgeon Dr. Swann. He also recommends obtaining a CT scan of the pelvis with IV contrast to assess the size of the abscess. The patient was treated with IV fluid as well as morphine Zofran and Ativan. Her physical exam and vitals do not suggest signs of sepsis and therefore I feel no need for bloodcultures or IV antibiotics at this time. Patient's labs show that her white count and neutrophil count are just slightly elevated and her lactic acid is normal. These values as well as her vital signswould indicate there are no signs of systemic infection/sepsis and the infectionis indeed a localized abscess. CT scan of the abdomen and pelvis revealed a 4.6 x 3.7 x 2.7 cm area of fluctuance consistent with abscess. The case was then rediscussed with general surgeon Dr. Swann he will come to the ER to evaluate the patient to discuss bedside his incision and drainage versus operating room incision and drainage. As her disposition is still pending she will be signed out to the day physician Dr. Jolley History & Record Review Discussion w/independent historian: Patient and Significant other Additional record(s) reviewed:: Prior outpatient record Lab Data Attestation: I reviewed the patient's lab results. Labs: Laboratory Results - last 24 hr 06/06/25 05:56 WBC 11.3 H RBC 4.80 Hgb 14.0 Hct 40.9 MCV 85.2 MCH 29.2 MCHC 34.2 RDW Std Deviation 35.9 RDW Coeff of Karla 11.7 Plt Count 303 MPV 9.4 Immature Gran % (Auto) 0.500 Neut % (Auto) 75.2 H Lymph % (Auto) 14.3 L [place] % (Auto) 7.7 Eos % (Auto) 1.9 Baso % (Auto) 0.4 Absolute Neuts (auto) 8.5 H Absolute Lymphs (auto) 1.62 Nucleated RBC % 0 Sodium 137 Potassium 4.6 Chloride 101 Carbon Dioxide 23.7 Anion Gap 12 BUN 19 Creatinine 0.87 Estim Creat Clear Calc 96.60 Est GFR (MDRD) Non-Af 81 BUN/Creatinine Ratio 21.5 H Glucose 148 H Lactic Acid 1.4 Calcium 9.8 Radiography Diagnostic Testing: Clinical Impression(s) from Imaging Studies Pelvis CT 06/06/25 05:50 IMPRESSION: Immediately caudal and abutting the left posterolateral aspect of the anus is a developing abscess. It is seen along the medial aspect of the gluteal fold with dimensions above. See above description. Reading Location: [id number] <Dr. Uriel Jolley MD - Last Filed: 06/06/25 08:05> [facility] Lab Data Labs: Laboratory Results - last 24 hr 06/06/25 05:56 WBC 11.3 H RBC 4.80 Hgb 14.0 Hct 40.9 MCV 85.2 MCH 29.2 MCHC 34.2 RDW Std Deviation 35.9 RDW Coeff of Karla 11.7 Plt Count 303 MPV 9.4 Immature Gran % (Auto) 0.500 Neut % (Auto) 75.2 H Lymph % (Auto) 14.3 L [place] % (Auto) 7.7 Eos % (Auto) 1.9 Baso % (Auto) 0.4 Absolute Neuts (auto) 8.5 H Absolute Lymphs (auto) 1.62 Nucleated RBC % 0 Sodium 137 Potassium 4.6 Chloride 101 Carbon Dioxide 23.7 Anion Gap 12 BUN 19 Creatinine 0.87 Estim Creat Clear Calc 96.60 Est GFR (MDRD) Non-Af 81 BUN/Creatinine Ratio 21.5 H Glucose 148 H Lactic Acid 1.4 Calcium 9.8 Radiography Diagnostic Testing: Clinical Impression(s) from Imaging Studies Pelvis CT 06/06/25 05:50 IMPRESSION: Immediately caudal and abutting the left posterolateral aspect of the anus is a developing abscess. It is seen along the medial aspect of the gluteal fold with dimensions above. See above description. Reading Location: [facility] Treatment and Re-Evaluation :: CT of the pelvis was reviewed. Dr. Kvng Swann was notified. He will be in to see patient to determine if patient can be drained in the emergency department versus formally in the OR. Patient was made aware of this. She is complaining of pain. Will treat her pain with Dilaudid. Plan is to take patient to the OR. Discharge Plan Dx/Rx/DC Orders Clinical Impression: Perirectal abscess, Essential hypertension, Non-insulin dependent diabetes mellitus, Anal fissure Disposition Disposition: Acute Care Hospital [facility] What to do if you have Problems For any increased pain, shortness of breath, bleeding, nausea or vomiting, chestpain, or any unexpected problems, contact your Primary Care Provider. Call [facility] ([phone]) or report to the closest Emergency Room. Call 911 if necessary. 06/06/25717 <Electronically signed by Caden Cabezas DO> Cosigner Signature (if applicable): 06/06/25804 <Electronically signed by Orlin HILLIARD> CC: KENISHA Ward ~ Signed [facility] Work Phone: Evaluation note* Diagnosis Encounter for screening mammogram for breast cancer [facility] Diagnosis Wellness examination- Primary Palpitations Hypertension, essential Unspecified essential hypertension Anxiety with depression documented in this encounter [facility] Work Phone: Evaluation note* Diagnosis Mitral valve annular calcification- Primary Mitral valve disorders 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 documented in this encounter [facility] note* Diagnosis Onset Date Resolution Status Chest pain in adult acute Essential hypertension acute Nonrheumatic mitral valve disorder acute Palpitations acute [facility] Work Phone: Evaluation note* Diagnosis Wellness examination- Primary Adjustment reaction [...] Other screening mammogram documented in this encounter [facility] note* Diagnosis Gross hematuria- Primary documented in this encounter [facility] note* Diagnosis Onset Date Resolution Status Lateral epicondylitis of both elbows acute [facility] Work Phone: evaluation note* Diagnosis Onset Date Resolution Status Lower extremity edema acute Lateral epicondylitis of both elbows acute [facility] Work Phone: Evaluation note* Diagnosis Onset Date Resolution Status Lower extremity edema acute Lateral epicondylitis of both elbows acute Varicose veins of right lower extremity with pain acute [facility] Work Phone: Evaluation note* Diagnosis Wellness examination- Primary Prediabetes Other abnormal glucose Fatigue, unspecified type Mass of left breast, unspecified quadrant 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 [facility] encounter [facility]* Diagnosis Prediabetes Other abnormal glucose documented in this encounter [facility] note* Diagnosis 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 documented in this encounter [facility] note* Diagnosis 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 documented in this encounter [facility] note* Diagnosis Routine physical examination- Primary Routine general medical examination at a health care facility Type 2 diabetes mellitus without complication, without long-term current use of insulin ([facility]) 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 Bee sting, accidental or unintentional, sequela Anal fissure Other tear of medial meniscus, current injury, right knee, subsequent encounter Class 2 severe obesity due to excess calories with serious comorbidity and body mass index (BMI) of 38.0 to 38.9 in adult (HCC) documented in this encounter [facility] note* Diagnosis Onset Date Resolution Status Admit Date Anal fissure acute May 252024 1:25pm Anal fissure acute May 292024 11:58am [facility] Work Phone: Progress note Author Riley Swann [facility] Note Date/Time June 04, 2025 1: 06pm [facility] [address] [place] [address] OFFICE VISIT Date of Service: 06/04/25 MR#: [id number] Acct: [id number] Name: ELIZABETH BABB Rep #: [id number] : 1975 Provider: Dr. Preston Swann MD Age/Sex: 50/F Location: [facility] Status: Signed Intake Vital Signs 05/29/25 12:23 Height 5 ft 6 in Intake Visit Reasons: S/P sphincterotomy 05-29 Chief Complaint: s/p sphincterotomy 05/29 Is patient in pain?: Yes Allergies latex Allergy (Verified 06/04/25 12:40) Swelling, itching Penicillins (PCN) Allergy (Verified 06/04/25 12:40) other Sulfa (Sulfonamide Antibiotics) Allergy (Verified 06/04/25 12:40) Hives, welts Medications ?Medication ?Instructions ?Recorded ?Confirmed ?Type sertraline 100 mg tablet 100 mg PO QHS mental health 08/30/17 06/04/25 History lisinopril 10 mg tablet 10 mg PO QHS blood pressure 12/14/17 06/04/25 History metformin 500 mg tablet,extended 500 mg PO BID 4 06/04/25 History release 24 hr vitamin E (dl, acetate) 180 mg 180 mg PO BID #60 caps 06/06/24 06/04/25 Rx (400 unit) capsule Diltiazem 2% / Lidocaine 5% #1 ea 11/09/24 06/04/25 Rx ointment (compound) (Diltiazem 2%/Lidocaine 5% ointment (compound)) Hydrocortisone 2.5%/lidocaine 5% #42 ea 11/10/2406/04 Rx suppository (cmpd) cholecalciferol (vitamin D3) 125 125 mcg PO DAILY 05/2406/04/25 History mcg (5,000 unit) tablet (Vitamin D3) magnesium 250 mg tablet 250 mg PO DAILY 03/07/2502/21 History tirzepatide 2.5 mg/0.5 mL 2.5 mg subcut STERN 05/25/25 History subcutaneous pen injector (Mounjaro) clindamycin HCl 300 mg capsule 300 mg PO TID 7 days #2 1 caps 06/04/25 06/04/25 Rx (Cleocin HCl) fluconazole 150 mg tablet 150 mg PO QDAY 7 days #7 tab s 06/04/25 06/04/25 Rx Subjective Details: The patient is a 50-year-old female who is status post a recent lateral internalsphincterotomy for an anal fissure. She is doing well until couple days ago when she began having increasing pain in the perianal area. She did also noticed some pus tinged drainage along with some chills. She called the office to be seen. Objective Details: She is alert and oriented x 3. She is in no acute distress. Examination of the perianal area reveals some induration around the left sided incision from the sphincterotomy. A small amount of pus tinged drainage was able to be expressed. The area was probed with a sterile Q-tip however no further drainage was able to be expressed. The surrounding area is tender and somewhat indurated. The fissure itself appears stable. I do not appreciate anyobvious areas of fluctuance or undrained abscess. I suspect there probably is/was a wound infection at the sphincterotomy incision site Coding Level of Care Code Global Post Op Diagnoses Anal fissure K60.2 [facility] Medical History Normal Holter exam Anal fissure Effusion, left knee Diabetes Restless legs Shortness of breath on exertion Leg cramps Cardiology follow-up encounter History of echocardiogram History of stress test Nonrheumatic mitral valve disorder Fatty liver Wears glasses Depression Anxiety Back pain Non-smoker History of edema Hypertension Labral tear of right hip joint Segmental and somatic dysfunction of pelvic region Segmental and somatic dysfunction of lumbar region Segmental and somatic dysfunction of thoracic region Segmental and somatic dysfunction of cervical region Surgical History Hx of knee surgery Hx of cystoscopy History of adenoidectomy History of laparoscopic appendectomy (~09/03/21) History of History of lithotripsy History of tonsillectomy History of colonoscopy (~2015) History of hysterectomy (~2011) History of cholecystectomy (~2001) Family History Mother Hypertension Thyroid disorder Depression Rheumatoid arthritis Grandmother Parkinsons disease Social History household members: spouse and children housing: house number of children: 3 current occupational status: employed pets and animals: Yes Smoking Status: Never smoker alcohol intake: never substance use type: does not use caffeine: Yes (occasional) what type of physical activity do you participate in: none seatbelt use: always do you feel safe at home: Yes Assessment and Plan (No Qualifiers) Assessment and Plan (1) Anal fissure: Status: Acute Plan: The patient is a 50-year-old female status post a right recent lateral internal sphincterotomy surgery for an anal fissure. She seems to developed an infectionat the surgical site. I do not appreciate any obvious undrained abscess at thispoint. I am recommending that we place her on antibiotics and have her follow-up if this does not improve. She is agreeable to this plan. I have called her and clindamycin as well as Diflucan for yeast infection. She is agreeable to this plan. Plan Details Goals & Barriers: Goals Decrease spasm Improve ROM Decrease pain Barriers Repetitive bending/lifting 06/04/25 1310 <Electronically signed by Riley elkins MD> Date _ Riley Swann MD Cosigner Signature: Date (if applicable) CC: ~ [facility] Work Phone: Progress note Author Sheila Serra [facility] Note Date/Time June 13, 2025 9 :09am [facility] [address] [place] [address] OFFICE VISIT Date of Service: 06/13/25 MR#: [id number] Acct: [id number] Name: ELIZABETH BABB Rep #: [id number] : 1975 Provider: KAVON Serra Age/Sex: 50/F Location: [facility] Status: Signed Intake Vital Signs 05/29/25 12:23 06/08/25 13:25 Height 5 ft 6 in 5 ft 6 in Intake Visit Reasons: ANAL FISSURE DOS 05/29 Chief Complaint: anal fissure DOS 05/29 Is patient in pain?: Yes Allergies latex Allergy (Verified 06/13/25 08:39) Swelling, itching Penicillins (PCN) Allergy (Verified 06/13/25 08:39) other Sulfa (Sulfonamide Antibiotics) Allergy (Verified 06/13/25 08:39) Hives, welts Medications ?Medication ?Instructions ?Recorded ?Confirmed ?Type sertraline 100 mg tablet 100 mg PO QHS mental health 08/30/17 06/13/25 History lisinopril 10 mg tablet 10 mg PO QHS blood pressure 12/14/17 06/13/25 History metformin 500 mg tablet,extended 500 mg PO BID 4 06/13/25 History release 24 hr vitamin E (dl, acetate) 180 mg 180 mg PO BID #60 caps 06/06/24 06/13/25 Rx (400 unit) capsule Hydrocortisone 2.5%/lidocaine 5% #42 ea 11/10/2406/13 Rx suppository (cmpd) cholecalciferol (vitamin D3) 125 125 mcg PO DAILY 05/2406/13/25 History mcg (5,000 unit) tablet (Vitamin D3) magnesium 250 mg tablet 250 mg PO DAILY 03/07/25 History Subjective Details: Patient is a 50 y/o F I am following s/p lateral internal sphincterotomy by Dr. Swann on 05/29 and s/p I&D left sided perirectal abscess by Dr. Swann on 06/06/25.Patient returns for a follow-up noting she has completed her antibiotics that were prescribed last Wednesday. She continues to note drainage from the left lateral open wound. She notes drainage color is serosanguineous. She notes seeing Dr. Foss last Wednesday for a concern of a possible right gluteal abscess. Ultrasound was used by Dr. Foss which only noted edema of the firm area of right gluteus, no fluid collection was noted. There was faint erythema noted at that time. Patient notes the area has become more focal and less broad in size. She also notes an area of tenderness/ecchymosis of the left forearm region. She notes this was the area of the initial IV which had infiltrated. Shedenies using any warm compresses. She notes the vessel is raised and tender (like a bruise). She denies the area becoming any worse. Objective Details: Anus, left lateral- open wound with healthy granulation tissue noted. No active drainage noted. No erythema noted Right inner gluteal area near the anus- 4 cm focal firm area with no erythema noted. No fluctuance noted. Likely dependent edema. Coding Level of Care Code Global Post Op Diagnoses Status post incision and drainage Z98.890 [facility] Medical History (Updated 06/12/25 @ 00:00 by Background Daemon) Normal Holter exam Anal fissure Effusion, left knee Diabetes Restless legs Shortness of breath on exertion Leg cramps Cardiology follow-up encounter History of echocardiogram History of stress test Nonrheumatic mitral valve disorder Fatty liver Wears glasses Depression Anxiety Back pain Non-smoker History of edema Hypertension Labral tear of right hip joint Segmental and somatic dysfunction of pelvic region Segmental and somatic dysfunction of lumbar region Segmental and somatic dysfunction of thoracic region Segmental and somatic dysfunction of cervical region Surgical History (Updated 06/12/25 @ 00:00 by Background Daemon) Status post incision and drainage Hx of knee surgery Hx of cystoscopy History of adenoidectomy History of laparoscopic appendectomy (~09/03/21) History of History of lithotripsy History of tonsillectomy History of colonoscopy (~2015) History of hysterectomy (~2011) History of cholecystectomy (~2001) Family History Mother Hypertension Thyroid disorder Depression Rheumatoid arthritis Grandmother Parkinsons disease Social History household members: spouse and children housing: house number of children: 3 current occupational status: employed pets and animals: Yes Smoking Status: Never smoker alcohol intake: never substance use type: does not use caffeine: Yes (occasional) what type of physical activity do you participate in: none seatbelt use: always do you feel safe at home: Yes Assessment and Plan (No Qualifiers) Assessment and Plan (1) Status post incision and drainage: Status: Acute Comment: For perirectal abscess Plan: No further antibiotic treatment needed Recommend continuing sitz bathes with Epsom salts 1-3 times daily Continue to monitor area of the right inner glut Recommend warm compresses to the right forearm 3 times per day Continue to keep the left gluteal wound covered to allow for drainage. No packing is needed Follow-up in [address] Swann Plan Details Goals & Barriers: Goals Decrease spasm Improve ROM Decrease pain Barriers Repetitive bending/lifting 06/14/25 1200 <Electronically signed by Sheila BERGER PA-C> Date _ Sheila BERGER PA-C Cosigner Signature: Date (if applicable) CC: ~ [facility] Work Phone: [facility] for referral (narrative)* Diagnostic Procedure Only (Routine) - Pending Review Specialty Diagnoses / Procedures Referred By Simona alonso Referred To Contact [facility] Diagnoses Encounter for screening mammogram for breast cancer Procedures ROCIO SCREENING SCREENING MAMMOGRAPHY BI 2-VIEW BREAST INC Hari Goldsmith PA-C [address] [place] [address] [facility] [address] [place] [address] Referral ID Status Reason Start Date Expiration Date Visits Requested Visits Authorized [id number] Pending Review Auto-Generat ed Referral 03/18/2022 04/17/2023 1 1 [facility] for referral (narrative)* Outpatient Procedure (Routine) - Pending Review Specialty Diagnoses / Procedures Referred By Simnoa alonso [facility] Diagnoses Palpitations Procedures ECHO ECHO TTHRC R-T 2D W/WOM-MODE COMPL SPEC&COLR D Silvana Ward APRN.SPOT CHECKER [address] [place] [address] [facility] [address] [place] [address] Referral ID Status Reason Start Date Expiration Date Visits Requested Visits Authorized [id number] Pending Review Auto-Generat ed Referral 03/24/2022 03/24/2023 1 1 * Outpatient Procedure (Routine) - Pending Review Specialty Diagnoses / Procedures Referred By Contac t Referred [facility] Diagnoses Palpitations Procedures ECG COMPLETE ECG ROUTINE ECG W/LEAST 12 LDS W/I&R Silvana Ward APRN.SPOT CHECKER [address] [place] [address] [facility] [address] [place] [address] Referral ID Status Reason Start Date Expiration Date Visits Requested Visits Authorized [id number] Pending Review Auto-Generat ed Referral 03/24/2022 03/24/2023 1 1 [facility] for referral (narrative)* Diagnostic Procedure Only (Routine) - Pending Review Specialty Diagnoses / Procedures Referred By Simona t Referred To Contact [facility] Diagnoses Visit for screening mammogram Procedures ROCIO SCREENING W KASSIDY SCREENING DIGITAL BREAST TOMOSYNTHESIS BI SCREENING MAMMOGRAPHY BI 2-VIEW BREAST INC CAD Silvana Ward APRN.SPOT CHECKER [address] [place] [address] [facility] [address] [place] [address] Referral ID Status Reason Start Date Expiration Date Visits Requested Visits Authorized [id number] Pending Review Auto-Generat ed Referral 04/06/2023 05/05/2024 1 1 * Diagnostic Procedure Only (Routine) - Pending Review Specialty Diagnoses / Procedures Referred By Contac t Referred To Contact [facility] Diagnoses Elevated liver enzymes Procedures US ABD RIGHT UPPER QUADRANT US ABDOMINAL REAL TIME W/IMAGE LIMITED Silvana Ward APRN.SPOT CHECKER [address] [place] [address] [facility] Referral ID Status Reason Start Date Expiration Date Visits Requested Visits Authorized [id number] Pending Review Auto-Generat ed Referral 04/06/2023 05/05/2024 1 1 * Consult, Test, Treat (Routine) - Authorized Specialty Diagnoses / Procedures Referred By Simona alonso Referred To Contact Orthopedics Diagnoses Lateral epicondylitis of both elbows Procedures CONSULT TO ORTHOPAEDICS OFFICE/OUTPATIENT [facility] MDM 60-74 MINUTES Silvana Ward APRN.SPOT CHECKER [address] [place] [address] Referral ID Status Reason Start Date Expiration Date Visits Requested Visits Authorized [id number] Authorized PCP Requested Referral 04/06/2023 04/05/2024 1 1 * Transition of Care (Routine) - Ref Not Required Specialty Diagnoses / Procedures Referred By Simona alonso Referred To Contact Dermatology Diagnoses Skin cancer screening Procedures CONSULT TO DERMATOLOGY Silvana Ward APRN.SPOT CHECKER [address] [place] [address] Referral ID Status Reason Start Date Expiration Date Visits Requested Visits Authorized [id number] Ref Not Required PCP Requested Referral 04/06/2023 04/05/2024 1 1 [facility] for referral (narrative)* Diagnostic Procedure Only (Routine) - New Request Specialty Diagnoses / Procedures Referred By Simona alonso Referred To Contact [facility] Diagnoses Mass of left breast, unspecified quadrant Procedures US BREAST LTD LEFT US BREAST UNI REAL TIME WITH IMAGE LIMITED Silvana Ward APRN.SPOT CHECKER [address] [place] [address] [facility] [address] [place] [address] Referral ID Status Reason Start Date Expiration Date Visits Requested Visits Authorized [id number] New Request Auto-Generat ed Referral 04/10/2024 05/10/2025 1 1 * Diagnostic Procedure Only (Routine) - New Request Specialty Diagnoses / Procedures Referred By Contac t Referred To Contact [facility] Diagnoses Mass of left breast, unspecified quadrant Procedures ROCIO DIAGNOSTIC BILATERAL DIAGNOSTIC MAMMOGRAPHY COMPUTER-AIDED DETCJ BI Silvana Ward APRN.SPOT CHECKER [address] [place] [address] [facility] [address] [place] [address] Referral ID Status Reason Start Date Expiration Date Visits Requested Visits Authorized [id number] New Request Auto-Generat ed Referral 04/10/2024 05/10/2025 1 1 * Diagnostic Procedure Only (Routine) - New Request Specialty Diagnoses / Procedures Referred By Contac t Referred To Contact [facility] Diagnoses Fatigue, unspecified type Procedures HOME SLEEP APNEA TEST (HSAT) SLEEP STD AIRFLOW HRT RATE&O2 SAT EFFORT UNATT Silvana Ward APRN.SPOT CHECKER [address] [place] [address] [facility] [place] [address] [place] [address] Referral ID Status Reason Start Date Expiration Date Visits Requested Visits Authorized [id number] New Request Auto-Generat ed Referral 04/10/2024 04/10/2025 1 1 [facility]No reason for referral [facility] Work Phone: Reason for referral (narrative)* Medication Prior Authorization - Closed Specialty Diagnoses / Procedures Referred By Contac t Referred To Contact Silvana Ward APRN.SPOT CHECKER [address] [place] [address] Phone: tel: fax: Referral ID Status Reason Start Date Expiration Date Visits Re quested Visits Authorized [id number] Closed 1 1 [facility] Advance Directives Documents on File Type Date Recorded 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 Advance Directive(s) 07/29/2016 10:56 AM Documents on File Type Date Recorded 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 Advance Directive(s) 07/29/2016 10:56 AM Advance Directive Response Recorded Date/ Time Living Will No September 03 6:02pm Power of Irrigation Pump Installer No September 03 6:02pm Advance Directive Response Recorded Date/ Time Living Will No September 03 5:02pm Power of Irrigation Pump Installer No September 03 5:02pm Advance Directive Response Recorded Date/ Time Living Will No November 29, 2023 2:10pm Power of Irrigation Pump Installer No November 28 2:10pm Advance Directive Response Recorded Date/ Time Advance Directives No December 22 10:06am Living Will No December 23, 2023 10:06am Power of Irrigation Pump Installer No December 22 10:06am Advance Directive Response Recorded Date/ Time Advance Directives No December 22 10:06am Advance Directive Response Recorded Date/ Time Do you have a Healthcare Power of Irrigation Pump Installer? Yes March 07, 2025 8:28am Advance Directives No December 22 10:06am Advance Directive Response Recorded Date/ Time Do you have a Healthcare Power of Irrigation Pump Installer? Yes March 07, 2025 8:28am Do you have a Healthcare Power of Irrigation Pump Installer? Yes May 28, 2025 8:28am Advance Directives No December 22 10:06am Advance Directive Response Recorded Date/ Time Do you have a Healthcare Power of Irrigation Pump Installer? Yes March 07, 2025 8:28am Do you have a Healthcare Power of Irrigation Pump Installer? Yes May 28, 2025 8:28am Do you have a Healthcare Power of Irrigation Pump Installer? No June 06, 2025 5:31am Advance Directives No December 22 10:06am Advance Directive Response Recorded Date/ Time Advance Directives No June 08, 2025 1:25pm Do you have a Healthcare Power of Irrigation Pump Installer? Yes March 07, 2025 8:28am Do you have a Healthcare Power of Irrigation Pump Installer? Yes May 28, 2025 8:28am Do you have a Healthcare Power of Irrigation Pump Installer? Yes June 06, 2025 8:54am Advance Directive Response Recorded Date/ Time Advance Directives No June 08, 2025 12:25pm Do you have a Healthcare Power of Irrigation Pump Installer? Yes March 07, 2025 7:28am Do you have a Healthcare Power of Irrigation Pump Installer? Yes May 28, 2025 7:28am Do you have a Healthcare Power of Irrigation Pump Installer? 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 Chief Complaint BI LAT ELBOWS Abnormal levels of other serum enzymes; SCREENING Reason for Visit Lateral epicondyliti s of both elbows Chief Complaint BI LAT ELBOWS Abnormal levels of other serum enzymes; SCREENING Hematuria, unspecified Reason for Visit Lateral epicondyliti s of both elbows Chief Complaint Abnormal levels of o ther serum enzymes; SCREENING Hematuria, unspecified CONSULT-LEG SWELLING LEFT ELBOW LOCALIZED EDEMA PIOTR EPICONDYLITIS/RX HERE Reason for Visit Lower extremity dave a Lateral epicondylitis of both elbows Chief Complaint Hematuria, unspecifi ed CONSULT-LEG SWELLING LEFT ELBOW LOCALIZED EDEMA PIOTR EPICONDYLITIS/RX HERE HEMATURIA Reason for Visit Lower extremity dave a Lateral epicondylitis of both elbows Chief Complaint Hematuria, unspecifi ed CONSULT-LEG SWELLING LEFT ELBOW LOCALIZED EDEMA HEMATURIA PIOTR EPICONDYLITIS/RX HERE Reason for Visit Lower extremity dave a Lateral epicondylitis of both elbows Chief Complaint Hematuria, unspecifi ed CONSULT-LEG SWELLING LEFT ELBOW LOCALIZED EDEMA HEMATURIA PIOTR EPICONDYLITIS/RX HERE Cysto,Ureteroscopy,Basket Ext,Stent Reason for Visit Lower extremity dave a Lateral epicondylitis of both elbows Chief Complaint CONSULT-LEG SWELLING LEFT ELBOW LOCALIZED EDEMA HEMATURIA PIOTR EPICONDYLITIS/RX HERE Cysto,Ureteroscopy,Basket Ext,Stent VENOUS INSUFFICIENCY VENOUS INSUFFICIENCY Reason for Visit Lower extremity dave a Lateral epicondylitis of both elbows Chief Complaint CONSULT-LEG SWELLING LEFT ELBOW LOCALIZED EDEMA HEMATURIA PIOTR EPICONDYLITIS/RX HERE Cysto,Ureteroscopy,Basket Ext,Stent VENOUS INSUFFICIENCY VENOUS INSUFFICIENCY RIGHT LEG VENOUS INSUFFICIENCY VENOUS INSUFFICIENCY Reason for Visit Lower extremity dave a Lateral epicondylitis of both elbows Varicose veins of right lower extremity with pain Chief Complaint Admit Date LT KNEE MENISCUS TEAR October 19 4:01pm LASER October 26, 2024 9:14am PIOTR LATERAL EPIDONDYLITIS/RX HERE October 31, 2024 8:30am 6 M FU November 09, 2024 10: 31am ST/BILAT EAR COMP/COUGH November 26, 2024 9:47am WHEEZING, COUGH December 16, 2024 12: 17pm Reason for Visit Admit Date Encounter for cosmetic laser procedure F ebruary 2024 9:14am Acute hemorrhoid November 09, 2024 10: 31am NAFLD (nonalcoholic fatty liver disease) November 09, 2024 10:31am Maxillary sinusitis November 26, 2024 9:4 7am Cough December 16, 2024 12: 17pm Nasal congestion December 16, 2024 12: 17pm PND (post-nasal drip) December 16, 2024 1 2:17pm Rhinorrhea December 16, 2024 12: 17pm Chief Complaint Admit Date ST/BILAT EAR COMP/COUGH November 26, 2024 9:47am WHEEZING, COUGH December 16, 2024 12: 17pm HEMORRHOIDS December 22, 2024 1:5 3pm PREOP March 08, 2025 8:41 am 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 March 09, 2025 6:54 am Reason for Visit Admit Date Maxillary sinusitis November 26, 2024 9:4 7am Cough December 16, 2024 12: 17pm Nasal congestion December 16, 2024 12: 17pm PND (post-nasal drip) December 16, 2024 1 2:17pm Rhinorrhea December 16, 2024 12: 17pm Anal fissure December 22, 2024 1:5 3pm Chief Complaint Admit Date WHEEZING, COUGH December 16, 2024 12: 17pm HEMORRHOIDS December 22, 2024 1:5 3pm PREOP March 08, 2025 8:41 am PREOP March 08, 2025 10:2 9am 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 RX TO BE FAXED Octob er 2024 9:30am Chief Complaint Admit Date LEFT KNEE ARTHROSCOPIC MEDIAL MENISCAL R OOT REPAIR April 05, 2025 8:48am ANAL FISSURE May 25, 2025 1:25pm screening June 01, 2025 10 :23am S/P sphincterotomy 05-29June 04 12:37pm YANCI RECTAL ABSCESS June 06, 2025 8: 10am PREOP June 06, 2025 10 :28am YANCI RECTAL ABSCESS June 06, 2025 10 :48am YANCI RECTAL ABSCESS June 07, 2025 7: 35am YANCI RECTAL ABSCESS June 08, 2025 2 :08pm ANAL FISSURE DOS 05/29June 13, 2025 8:32am WOUND CHECK June 20, 2025 1 :46pm WOUND CHECK July 03, 2025 1 2:58pm L KNEE ARTHROSCOPY. RX TO BE FAXED Novem gita 2024 8:30am Reason for Visit Admit Date Anal fissure May 25, 2025 1:25pm Anal fissure May 29, 2025 11:58am Anal fissure June 04, 2025 12 :37pm Status post incision and drainage Octobe r 2024 8:10am Perirectal abscess June 06, 2025 8: 10am Status post incision and drainage Octobe r 2024 2:08pm Status post incision and drainage Octobe r 2024 8:32am Status post incision and drainage Octobe r 2024 1:46pm Status post incision and drainage Novemb er 2024 12:58pm Family History Relationship Condition Age at Onset Recorded Date/T radha mother Hypertension Unknown Disorder of thyroid Unknown Depression Unknown Rheumatoid arthritis Unknown grandmother Parkinson's disease Unknown Reason for Referral Specialty Diagnoses / Procedures Referred By Contac t Referred To Contact Cardiology Diagnoses Mitral valve annular calcification Procedures CONSULT TO CARDIOLOGY OFFICE/OUTPATIENT [facility] 60-74 MINUTES Hari Moss PA-C [address] [place] [address] Referral ID Status Reason Start Date Expiration Date Visits Requested Visits Authorized [id number] Authorized PCP Requested Referral 04/24/2022 04/24/2023 1 1 Specialty Diagnoses / Procedures Referred By Contac t Referred To Contact Urology Diagnoses Gross hematuria Procedures CONSULT TO UROLOGY OFFICE/OUTPATIENT [facility] 60-74 MINUTES Silvana Ward, MOTORBOAT MECHANIC.SPOT CHECKER [address] [place] [address] Referral ID Status Reason Start Date Expiration Date Visits Requested Visits Authorized [id number] Authorized PCP Requested Referral 08/02/2023 08/01/2024 1 1 Specialty Diagnoses / Procedures Referred By Contac t Referred To Contact CT IMAGING Diagnoses Gross hematuria Procedures CT UROGRAM WO/W IVCON CT ABD & PELVIS W/WO CONTRST 1+ BODY REGNS Silvana Ward, MOTORBOAT MECHANIC.SPOT CHECKER [address] [place] [address] [place] [address] Referral ID Status Reason Start Date Expiration Date Visits Requested Visits Authorized [id number] Pending Review Auto-Generat ed Referral 08/02/2023 08/31/2024 1 1 Summary Purpose Additional Source Comments Source Comments (unrecognize d section and content) In the event this informatio n is protected by the Federal Confidentiality of Alcohol and Drug Abuse Patient Records regulations: The Federal rules restrict any use of the information to criminally investigate or prosecute any alcohol or drug abuse patient.[facility] the event this information is protected by the Federal Confidentiality of Alcohol and Drug Abuse Patient Records regulations: The Federal rules restrict any use of the information to criminally investigate or prosecute any alcohol or drug abuse patient.[facility] HospitalIn the event this information is protected by the Federal Confidentiality of Alcohol and Drug Abuse Patient Records regulations: The Federal rules restrict any use of the information to criminally investigate or prosecute any alcohol or drug abuse patient.[facility] HospitalIn the event this information is protected by the Federal Confidentiality of Alcohol and Drug Abuse Patient Records regulations: The Federal rules restrict any use of the information to criminally investigate or prosecute any alcohol or drug abuse patient.[facility] HospitalIn the event this information is protected by the Federal Confidentiality of Alcohol and Drug Abuse Patient Records regulations: The Federal rules restrict any use of the information to criminally investigate or prosecute any alcohol or drug abuse patient.[facility] HospitalIn the event this information is protected by the Federal Confidentiality of Alcohol and Drug Abuse Patient Records regulations: The Federal rules restrict any use of the information to criminally investigate or prosecute any alcohol or drug abuse patient.[facility] HospitalIn the event this information is protected by the Federal Confidentiality of Alcohol and Drug Abuse Patient Records regulations: The Federal rules restrict any use of the information to criminally investigate or prosecute any alcohol or drug abuse patient.[facility] HospitalIn the event this information is protected by the Federal Confidentiality of Alcohol and Drug Abuse Patient Records regulations: The Federal rules restrict any use of the information to criminally investigate or prosecute any alcohol or drug abuse patient.[facility] HospitalIn the event this information is protected by the Federal Confidentiality of Alcohol and Drug Abuse Patient Records regulations: The Federal rules restrict any use of the information to criminally investigate or prosecute any alcohol or drug abuse patient.[facility] HospitalIn the event this information is protected by the Federal Confidentiality of Alcohol and Drug Abuse Patient Records regulations: The Federal rules restrict any use of the information to criminally investigate or prosecute any alcohol or drug abuse patient.[facility] HospitalIn the event this information is protected by the Federal Confidentiality of Alcohol and Drug Abuse Patient Records regulations: The Federal rules restrict any use of the information to criminally investigate or prosecute any alcohol or drug abuse patient.[facility] HospitalIn the event this information is protected by the Federal Confidentiality of Alcohol and Drug Abuse Patient Records regulations: The Federal rules restrict any use of the information to criminally investigate or prosecute any alcohol or drug abuse patient.[facility] HospitalIn the event this information is protected by the Federal Confidentiality of Alcohol and Drug Abuse Patient Records regulations: The Federal rules restrict any use of the information to criminally investigate or prosecute any alcohol or drug abuse patient.[facility] HospitalIn the event this information is protected by the Federal Confidentiality of Alcohol and Drug Abuse Patient Records regulations: The Federal rules restrict any use of the information to criminally investigate or prosecute any alcohol or drug abuse patient.[facility] HospitalIn the event this information is protected by the Federal Confidentiality of Alcohol and Drug Abuse Patient Records regulations: The Federal rules restrict any use of the information to criminally investigate or prosecute any alcohol or drug abuse patient.[facility] HospitalIn the event this information is protected by the Federal Confidentiality of Alcohol and Drug Abuse Patient Records regulations: The Federal rules restrict any use of the information to criminally investigate or prosecute any alcohol or drug abuse patient.[facility] HospitalIn the event this information is protected by the Federal Confidentiality of Alcohol and Drug Abuse Patient Records regulations: The Federal rules restrict any use of the information to criminally investigate or prosecute any alcohol or drug abuse patient.[facility] HospitalIn the event this information is protected by the Federal Confidentiality of Alcohol and Drug Abuse Patient Records regulations: The Federal rules restrict any use of the information to criminally investigate or prosecute any alcohol or drug abuse patient.[facility] HospitalIn the event this information is protected by the Federal Confidentiality of Alcohol and Drug Abuse Patient Records regulations: The Federal rules restrict any use of the information to criminally investigate or prosecute any alcohol or drug abuse patient.[facility] HospitalIn the event this information is protected by the Federal Confidentiality of Alcohol and Drug Abuse Patient Records regulations: The Federal rules restrict any use of the information to criminally investigate or prosecute any alcohol or drug abuse patient.[facility] HospitalIn the event this information is protected by the Federal Confidentiality of Alcohol and Drug Abuse Patient Records regulations: The Federal rules restrict any use of the information to criminally investigate or prosecute any alcohol or drug abuse patient.[facility] HospitalIn the event this information is protected by the Federal Confidentiality of Alcohol and Drug Abuse Patient Records regulations: The Federal rules restrict any use of the information to criminally investigate or prosecute any alcohol or drug abuse patient.[facility] HospitalIn the event this information is protected by the Federal Confidentiality of Alcohol and Drug Abuse Patient Records regulations: The Federal rules restrict any use of the information to criminally investigate or prosecute any alcohol or drug abuse patient.[facility] HospitalIn the event this information is protected by the Federal Confidentiality of Alcohol and Drug Abuse Patient Records regulations: The Federal rules restrict any use of the information to criminally investigate or prosecute any alcohol or drug abuse patient.[facility] HospitalIn the event this information is protected by the Federal Confidentiality of Alcohol and Drug Abuse Patient Records regulations: The Federal rules restrict any use of the information to criminally investigate or prosecute any alcohol or drug abuse patient.[facility] HospitalIn the event this information is protected by the Federal Confidentiality of Alcohol and Drug Abuse Patient Records regulations: The Federal rules restrict any use of the information to criminally investigate or prosecute any alcohol or drug abuse patient.[facility] HospitalIn the event this information is protected by the Federal Confidentiality of Alcohol and Drug Abuse Patient Records regulations: The Federal rules restrict any use of the information to criminally investigate or prosecute any alcohol or drug abuse patient.[facility] Care Teams (unrecognized sec tion and content) Surgical Tech Relationship Specialty Start Date End Date Hari Moss PA-C [address] [place] [address] PCP - General Family Practice 01/21/17 Surgical Tech Relationship Specialty Start Date End Date Hari Moss PA-C [address] [place] [address] PCP - General Family Practice 01/21/17 Surgical Tech Relationship Specialty Start Date End Date Hari Moss PA-C [address] [place] [address] PCP - General Family Practice 01/21/17 Surgical Tech Relationship Specialty Start Date End Date Hari Moss PA-C [address] [place] [address] PCP - General Family Practice 01/21/17 Surgical Tech Relationship Specialty Start Date End Date Hari Moss PA-C [address] [place] [address] PCP - General Family Practice 01/21/17 Surgical Tech Relationship Specialty Start Date End Date Hari Moss PA-C [address] [place] [address] PCP - General Family Medicine 01/21/17 Surgical Tech Relationship Specialty Start Date End Date Hari Moss PA-C [address] [place] [address] PCP - General Family Medicine 01/21/17 Surgical Tech Relationship Specialty Start Date End Date Hari Moss PA-C [address] [facility] [place] [address] PCP - General Family Medicine 01/21/17 Surgical Tech Relationship Specialty Start Date End Date Hari Moss PA-C [address] [facility] [place], [place] [address] PCP - General Family Medicine 01/21/17 Team Status: Active Member Role Status Dates Hari Moss PA PA Family Provider Active Dr. Jong Weems MD Primary Care Provider Active Team Status: Active Member Role Status Dates Dr. Jong Weems MD Primary Care Provider Active Health Risk Assessment Attending Provider, Referring P latonya Active Team Status: Inactive Member Role Status Dates Dr. Jong Weems MD Primary Care Provider Active Silvana Ward INSULATION INSPECTOR, INSULATION INSPECTOR-C Attending Provider, Referring Provider Active Surgical Tech Relationship Specialty Start Date End Date Hari Moss PA-C [address] [place] [address] PCP - General Family Medicine 01/21/17 Surgical Tech Relationship Specialty Start Date End Date Hari Moss PA-C [address] [place] [address] PCP - General Family Medicine 01/21/17 Surgical Tech Relationship Specialty Start Date End Date Hari Moss PA-C [address] [facility] [place] [address] PCP - General Family Medicine 01/21/17 Surgical Tech Relationship Specialty Start Date End Date Hari Moss PA-C [address] [facility] [place] [address] PCP - General Family Medicine 01/21/17 Team Status: Active Member Role Status Dates Hari BERGER PA Family Provider Active Silvana Ward INSULATION INSPECTOR, INSULATION INSPECTOR-C Primary Care Provider Active Team Status: Inactive Member Role Status Dates Dr. Jong Weems MD Primary Care Provider, Referring Provider Active Dr. Alejandro Graham DO Attending Provider Active Team Status: Inactive Member Role Status Dates Silvana Ward INSULATION INSPECTOR, INSULATION INSPECTOR-C Primary Care Pro vider, Attending Provider, Referring Provider Active Team Status: Inactive Member Role Status Dates Silvana Ward INSULATION INSPECTOR, INSULATION INSPECTOR-C Primary Care Provider, Referri ng Provider Active CELINE Weinberg Attending Provider Active Team Status: Inactive Member Role Status Dates Silvana Ward INSULATION INSPECTOR, INSULATION INSPECTOR-C Primary Care Provider, Referri ng Provider Active Dr. Alejandro Graham DO Attending Provider Active Team Status: Active Member Role Status Dates Silvana Ward INSULATION INSPECTOR, INSULATION INSPECTOR-C Primary Care Provider Active Dr. Jose Ramon Byers MD Attending Provider Active Team Status: Inactive Member Role Status Dates Silvana Ward INSULATION INSPECTOR, INSULATION INSPECTOR-C Primary Care Provider Active CELINE Weinberg Attending Provider, Referring Provid er Active Team Status: Active Member Role Status Dates Silvana Ward INSULATION INSPECTOR, INSULATION INSPECTOR-C Primary Care Provider Active Dr. Alejandro Graham DO Attending Provider, Referring Provider Active Team Status: Active Member Role Status Dates Silvana Ward INSULATION INSPECTOR, INSULATION INSPECTOR-C Primary Care Provider Active Dr. Jose Ramon Byers MD Attending Provider Active CELINE Weinberg Referring Provider Active Team Status: Inactive Member Role Status Dates Silvana Ward INSULATION INSPECTOR, INSULATION INSPECTOR-C Primary Care Provider Active Dr. Mena Duggan MD Attending Provider, Referring P rovider Active Surgical Tech Relationship Specialty Start Date End Date Hari Moss PA-C [address] [place] [address] PCP - General Family Medicine 01/21/17 Team Status: Active Member Role Status Dates Silvana Ward INSULATION INSPECTOR, INSULATION INSPECTOR-C Primary Care Provider Active Dr. Jose Ramon Byers MD Attending Provider, Referring Provider, Other Provider Active Team Status: Inactive Member Role Status Dates Silvana Ward INSULATION INSPECTOR, INSULATION INSPECTOR-C Primary Care Provider Active Dr. Jose Ramon Byers MD Attending Provider, Referring Pro vider Active Surgical Tech Relationship Specialty Start Date End Date Hari Moss PA-C [address] [facility] [place] [address] PCP - General Family Medicine 01/21/17 Surgical Tech Relationship Specialty Start Date End Date Hari Moss PA-C [address] [facility] [place] [address] PCP - General Family Medicine 01/21/17 Surgical Tech Relationship Specialty Start Date End Date Hari Moss PA-C [address] [facility] [place] [address] PCP - General Family Medicine 01/21/17 Surgical Tech Relationship Specialty Start Date End Date Jeff Moss PA-C PCP - General Family Medicine 01/21/17 Surgical Tech Relationship Specialty Start Date End Date Silvana Ward, MOTORBOAT MECHANIC.SPOT CHECKER [address] [facility] [place] [address] [facility] 08/04/24 Odessa Chu, MOTORBOAT MECHANIC.SPOT CHECKER [address] [facility] [place] [address] [facility] 08/04/24 Surgical Tech Relationship Specialty Start Date End Date Silvana Ward, MOTORBOAT MECHANIC.SPOT CHECKER [address] [facility] [place] [address] PCP - General Family Medicine 11/06/24 Silvana Ward, MOTORBOAT MECHANIC.SPOT CHECKER [address] [facility] [place] [address] [facility] 08/04/24 Odessa Chu, MOTORBOAT MECHANIC.SPOT CHECKER [address] [facility] [place] [address] [facility] 08/04/24 Surgical Tech Relationship Specialty Start Date End Date Silvana Ward APRN.SPOT CHECKER [address] [place] [address] PCP - General Family Medicine 11/06/24 Silvana Ward APRN.SPOT CHECKER [address] [place], [place] [address] [facility] 08/04/24 Odessa Chu APRN.SPOT CHECKER [address] [place], [place] [address] [facility] 08/04/24 Team Status: Active Member Role Status Dates Silvana Ward NP, INSULATION INSPECTOR-C Primary Care Provider Active Team Status: Inactive Member Role Status Dates Silvana Ward NP, INSULATION INSPECTOR-C Primary Care Provider Active Start: October 19, 2024 End: October 19, 2024 Dr. Jacinto Smith DO Attending Provider Active Start: October 19, 2024 End: October 19, 2024 Dr. Jacinto Smith DO Referring Provider Active Start: October 19, 2024 End: October 19, 2024 Team Status: Inactive Member Role Status Dates Silvana Ward NP, INSULATION INSPECTOR-C Primary Care Provider Active Start: October 26, 2024 End: October 26, 2024 Desiree Lau NP, INSULATION INSPECTOR-C Attending Provider Active Start: October 26, 2024 End: October 26, 2024 Desiree Lau NP, INSULATION INSPECTOR-C Referring Provider Active Start: October 26, 2024 End: October 26, 2024 Team Status: Inactive Member Role Status Dates Silvana Ward NP, INSULATION INSPECTOR-C Primary Care Provider Active Start: October 31, 2024 End: October 31, 2024 Marty Gil MD Attending Provider Active St art: October 31, 2024 End: October 31, 2024 Team Status: Inactive Member Role Status Dates Silvana Ward NP, INSULATION INSPECTOR-C Primary Care Provider Active Start: November 09, 2024 End: November 09, 2024 Silvana Ward NP, INSULATION INSPECTOR-C Referring Provider Active Start: November 09, 2024 End: November 09, 2024 Dr. Gus Wen , DO Attending Provider Active Start: November 09, 2024 End: November 09, 2024 Team Status: Inactive Member Role Status Dates Silvana Ward INSULATION INSPECTOR, INSULATION INSPECTOR-C Primary Care Provider Active Start: November 26, 2024 End: November 26, 2024 Silvana Ward NP, INSULATION INSPECTOR-C Referring Provider Active Start: November 26, 2024 End: November 26, 2024 Keenan Tellez NP, INSULATION INSPECTOR-C Attending Provider Active S tart: November 26, 2024 End: November 26, 2024 Team Status: Inactive Member Role Status Dates Silvana Ward NP, INSULATION INSPECTOR-C Primary Care Provider Active Start: December 16, 2024 End: December 16, 2024 Silvana Ward NP, INSULATION INSPECTOR-C Referring Provider Active Start: December 16, 2024 End: December 16, 2024 Hanna Garcia NP-C Attending Provider Active Start: December 16, 2024 End: December 16, 2024 Team Status: Inactive Member Role Status Dates Silvana Ward NP, INSULATION INSPECTOR-C Primary Care Provider Active Start: December 18, 2024 End: December 18, 2024 Hanna Garcia NP-C Attending Provider Active Start: December 18, 2024 End: December 18, 2024 Surgical Tech Relationship Specialty Start Date End Date Silvana Ward APRN.SPOT CHECKER [address] [place] [address] PCP - General Family Medicine 11/06/24 Team Status: Active Member Role/Relationship Status Dates Silvana Ward NP, INSULATION INSPECTOR-C Primary Care Provider Active Team Status: Inactive Member Role/Relationship Status Dates Silvana Ward INSULATION INSPECTOR, INSULATION INSPECTOR-C Primary Care Provider Active Start: November 26, 2024 End: November 26, 2024 Silvana Ward NP, INSULATION INSPECTOR-C Referring Provider Active Start: November 26, 2024 End: November 26, 2024 Keenan Tellez NP, INSULATION INSPECTOR-C Attending Provider Active S tart: November 26, 2024 End: November 26, 2024 Team Status: Inactive Member Role/Relationship Status Dates Silvana Ward INSULATION INSPECTOR, INSULATION INSPECTOR-C Primary Care Provider Active Start: December 16, 2024 End: December 16, 2024 Silvana Ward INSULATION INSPECTOR, INSULATION INSPECTOR-C Referring Provider Active Start: December 16, 2024 End: December 16, 2024 Hanna Garcia INSULATION INSPECTOR-C Attending Provider Active Start: December 16, 2024 End: December 16, 2024 Team Status: Inactive Member Role/Relationship Status Dates Silvana Ward INSULATION INSPECTOR, INSULATION INSPECTOR-C Primary Care Provider Active Start: December 18, 2024 End: December 18, 2024 Hanna Garcia INSULATION INSPECTOR-C Attending Provider Active Start: December 18, 2024 End: December 18, 2024 Team Status: Inactive Member Role/Relationship Status Dates Silvana Ward INSULATION INSPECTOR, INSULATION INSPECTOR-C Primary Care Provider Active Start: December 22, 2024 End: December 22, 2024 Silvana Ward INSULATION INSPECTOR, INSULATION INSPECTOR-C Referring Provider Active Start: December 22, 2024 End: December 22, 2024 Dr. Riley Swann MD Attending Provider Active Start: December 22, 2024 End: December 22, 2024 Team Status: Inactive Member Role/Relationship Status Dates Silvana Ward INSULATION INSPECTOR, INSULATION INSPECTOR-C Primary Care Provider Active Start: March 08, 2025 End: March 08, 2025 Dr. Jacinto Smith DO Attending Provider Active Start: March 08, 2025 End: March 08, 2025 Dr. Jacinto Smith DO Referring Provider Active Start: March 08, 2025 End: March 08, 2025 Team Status: Active Member Role/Relationship Status Dates Silvana Ward INSULATION INSPECTOR, INSULATION INSPECTOR-C Primary Care Provider Active Start: March 09, 2025 Health Risk Assessment Attending Provider Active Start: March 09, 2025 Health Risk Assessment Referring Provider Active Start: March 09, 2025 Team Status: Inactive Member Role/Relationship Status Dates Silvana Ward INSULATION INSPECTOR, INSULATION INSPECTOR-C Primary Care Provider Active Start: December 16, 2024 End: December 16, 2024 Silvana Ward INSULATION INSPECTOR, INSULATION INSPECTOR-C Referring Provider Active Start: December 16, 2024 End: December 16, 2024 Hanna Garcia INSULATION INSPECTOR-C Attending Provider Active Start: December 16, 2024 End: December 16, 2024 Team Status: Inactive Member Role/Relationship Status Dates Silvana Ward INSULATION INSPECTOR, INSULATION INSPECTOR-C Primary Care Provider Active Start: December 18, 2024 End: December 18, 2024 MADISYN PeckC Attending Provider Active Start: December 18, 2024 End: December 18, 2024 Team Status: Inactive Member Role/Relationship Status Dates Silvana Ward INSULATION INSPECTOR, INSULATION INSPECTOR-C Primary Care Provider Active Start: December 22, 2024 End: December 22, 2024 Silvana Ward INSULATION INSPECTOR, INSULATION INSPECTOR-C Referring Provider Active Start: December 22, 2024 End: December 22, 2024 Dr. Riley Swann MD Attending Provider Active Start: December 22, 2024 End: December 22, 2024 Team Status: Inactive Member Role/Relationship Status Dates Silvana Ward INSULATION INSPECTOR, INSULATION INSPECTOR-C Primary Care Provider Active Start: February 27, 2025 Dr. Mena Duggan MD Attending Provider Active Start: February 27, 2025 Team Status: Active Member Role/Relationship Status Dates Silvana Ward INSULATION INSPECTOR, INSULATION INSPECTOR-C Primary Care Provider Active Start: March 08, 2025 End: March 08, 2025 Dr. Charles Sherwood MD Attending Provider Active S tart: March 08, 2025 End: March 08, 2025 Dr. Jacinto Smith DO Referring Provider Active Start: March 08, 2025 End: March 08, 2025 Team Status: Active Member Role/Relationship Status Dates Silvana Ward INSULATION INSPECTOR, INSULATION INSPECTOR-C Primary Care Provider Active Start: March 09, 2025 Health Risk Assessment Attending Provider Active Start: March 09, 2025 Health Risk Assessment Referring Provider Active Start: March 09, 2025 Team Status: Inactive Member Role/Relationship Status Dates Silvana Ward INSULATION INSPECTOR, INSULATION INSPECTOR-C Primary Care Provider Active Start: April 05, 2025 End: April 05, 2025 Dr. Jacinto Smith DO Attending Provider Active Start: April 05, 2025 End: April 05, 2025 Dr. Jacinto Smith DO Referring Provider Active Start: April 05, 2025 End: April 05, 2025 Surgical Tech Relationship Specialty Start Date End Date Silvana Ward APRN.SPOT CHECKER [address] [place] [address] PCP - General Family Medicine 11/06/24 Surgical Tech Relationship Specialty Start Date End Date Silvana Ward APRN.[facility] [address] [place] [address] PCP - General Family Medicine 11/06/24 Team Status: Active Member Role/Relationship Status Dates Silvana Ward INSULATION INSPECTOR, INSULATION INSPECTOR-C Primary care physician Active Team Status: Inactive Member Role/Relationship Status Dates Silvana Ward INSULATION INSPECTOR, INSULATION INSPECTOR-C Primary care physician Active Start: February 27, 2025 Dr. Mena Duggan MD Attending physician Active Start: February 27, 2025 Team Status: Inactive Member Role/Relationship Status Dates Silvana Ward INSULATION INSPECTOR, INSULATION INSPECTOR-C Primary care physician Active Start: March 08, 2025 End: March 08, 2025 Dr. Jacinto Smith DO Attending physician Active Start: March 08, 2025 End: March 08, 2025 Dr. Jacinto Smith DO Referring Provider Active Start: March 08, 2025 End: March 08, 2025 Team Status: Active Member Role/Relationship Status Dates Silvana Ward INSULATION INSPECTOR, INSULATION INSPECTOR-C Primary care physician Active Start: March 08, 2025 End: March 08, 2025 Dr. Charles Sherwood MD Attending physician Active Start: March 08, 2025 End: March 08, 2025 Dr. Jacinto Smith DO Referring Provider Active Start: March 08, 2025 End: March 08, 2025 Team Status: Active Member Role/Relationship Status Dates Silvana Ward INSULATION INSPECTOR, INSULATION INSPECTOR-C Primary care physician Active Start: March 09, 2025 Health Risk Assessment Attending physician Active Start: March 09, 2025 Health Risk Assessment Referring Provider Active Start: March 09, 2025 Team Status: Inactive Member Role/Relationship Status Dates Silvana Ward INSULATION INSPECTOR, INSULATION INSPECTOR-C Primary care physician Active Start: April 05, 2025 End: April 05, 2025 Dr. Jacinto Smith DO Attending physician Active Start: April 05, 2025 End: April 05, 2025 Dr. Jacinto Smith DO Referring Provider Active Start: April 05, 2025 End: April 05, 2025 Team Status: Inactive Member Role/Relationship Status Dates Silvana Ward INSULATION INSPECTOR, INSULATION INSPECTOR-C Primary care physician Active Start: May 25, 2025 End: May 25, 2025 Silvana Ward INSULATION INSPECTOR, INSULATION INSPECTOR-C Referring Provider Active Start: May 25, 2025 End: May 25, 2025 Dr. Riley Swann MD Attending physician Active Start: May 25, 2025 End: May 25, 2025 Team Status: Active Member Role/Relationship Status Dates Silvana Ward INSULATION INSPECTOR, INSULATION INSPECTOR-C Primary care physician Active Start: May 28, 2025 CELINE Dominguez Attending physician Active Star t: May 28, 2025 CELINE Dominguez Referring Provider Active Start : May 28, 2025 Team Status: Inactive Member Role/Relationship Status Dates Silvana Ward INSULATION INSPECTOR, INSULATION INSPECTOR-C Primary care physician Active Start: May 29, 2025 End: May 29, 2025 Dr. Riley Swann MD Attending physician Active Start: May 29, 2025 End: May 29, 2025 Dr. Riley Swann MD Referring Provider Active Start: May 29, 2025 End: May 29, 2025 Team Status: Active Member Role/Relationship Status Dates Silvana Ward INSULATION INSPECTOR, INSULATION INSPECTOR-C Primary care physician Active Start: May 29, 2025 Dr. Riley Swann MD Attending physician Active Start: May 29, 2025 Dr. Riley Swann MD Referring Provider Active Start: May 29, 2025 Dr. Riley Swann MD Nurse Practitioner Active Start: May 29, 2025 Team Status: Inactive Member Role/Relationship Status Dates Silvana Ward INSULATION INSPECTOR, INSULATION INSPECTOR-C Primary care physician Active Start: May 29, 2025 End: May 29, 2025 Dr. Riley Swann MD Attending physician Active Start: May 29, 2025 End: May 29, 2025 Dr. Riley Swann MD Referring Provider Active Start: May 29, 2025 End: May 29, 2025 Team Status: Active Member Role/Relationship Status Dates Silvana Ward INSULATION INSPECTOR, INSULATION INSPECTOR-C Primary care physician Active Start: May 29, 2025 Dr. Riley Swann MD Attending physician Active Start: May 29, 2025 Dr. Riley Swann MD Referring Provider Active Start: May 29, 2025 Dr. Riley Swann MD Nurse Practitioner Active Start: May 29, 2025 Team Status: Active Member Role/Relationship Status Dates Silvana Haagen INSULATION INSPECTOR, INSULATION INSPECTOR-C Primary care physician Active Start: June 01, 2025 Silvana Ward INSULATION INSPECTOR, INSULATION INSPECTOR-C Attending physician Active Start: June 01, 2025 Silvana Haagen INSULATION INSPECTOR, INSULATION INSPECTOR-C Referring Provider Active Start: June 01, 2025 Team Status: Active Member Role/Relationship Status Dates Silvana Haagen INSULATION INSPECTOR, INSULATION INSPECTOR-C Primary care physician Active Start: June 01, 2025 CELINE Dominguez Attending physician Active Star t: June 01, 2025 CELINE Dominguez Referring Provider Active Start : June 01, 2025 Team Status: Inactive Member Role/Relationship Status Dates Silvana Haagen INSULATION INSPECTOR, INSULATION INSPECTOR-C Primary care physician Active Start: June 04, 2025 End: June 04, 2025 Silvana Haagen INSULATION INSPECTOR, INSULATION INSPECTOR-C Referring Provider Active Start: June 04, 2025 End: June 04, 2025 Dr. Riley Swann MD Attending physician Active Start: June 04, 2025 End: June 04, 2025 Team Status: Inactive Member Role/Relationship Status Dates Silvana Haagen INSULATION INSPECTOR, INSULATION INSPECTOR-C Primary care physician Active Start: June 04, 2025 End: June 04, 2025 Silvana Haagen INSULATION INSPECTOR, INSULATION INSPECTOR-C Referring Provider Active Start: June 04, 2025 End: June 04, 2025 Dr. Riley Swann MD Attending physician Active Start: June 04, 2025 End: June 04, 2025 Team Status: Active Member Role/Relationship Status Dates Silvana Haagen INSULATION INSPECTOR, INSULATION INSPECTOR-C Primary care physician Active Start: June 05, 2025 CELINE Dominguez Attending physician Active Star t: June 05, 2025 CELINE Dominguez Referring Provider Active Start : June 05, 2025 Team Status: Active Member Role/Relationship Status Dates Silvana Hafatimah INSULATION INSPECTOR, INSULATION INSPECTOR-C Primary care physician Active Start: June 06, 2025 Dr. Caden Cabezas DO Emergency Departme nt Physician Active Start: June 06, 2025 Dr. Riley Swann MD Admitting physician Active Start: June 06, 2025 Dr. Riley Swann MD Attending physician Active Start: June 06, 2025 Team Status: Inactive Member Role/Relationship Status Dates Silvana Hafatimah INSULATION INSPECTOR, INSULATION INSPECTOR-C Primary care physician Active Start: June 06, 2025 End: June 07, 2025 Dr. Caden Cabezas , Emergency Departme nt Physician Active Start: June 06, 2025 End: June 07, 2025 Dr. Riley Swann MD Admitting physician Active Start: June 06, 2025 End: June 07, 2025 Dr. Riley Swann MD Attending physician Active Start: June 06, 2025 End: June 07, 2025 Team Status: Active Member Role/Relationship Status Dates Silvana Ward INSULATION INSPECTOR, INSULATION INSPECTOR-C Primary care physician Active Start: June 06, 2025 Dr. Caden Cabezas DO Emergency Department Physician A ctive Start: June 06, 2025 Dr. Riley Swann MD Admitting physician Active Start: June 06, 2025 Dr. Riley Swann MD Attending physician Active Start: June 06, 2025 Dr. Riley Swann MD Nurse Practitioner Active Start: June 06, 2025 Team Status: Active Member Role/Relationship Status Dates Silvana Ward INSULATION INSPECTOR, INSULATION INSPECTOR-C Primary care physician Active Start: June 07, 2025 Dr. Caden Cabezas DO Emergency Departme nt Physician Active Start: June 07, 2025 Dr. Riley Swann MD Admitting physician Active Start: June 07, 2025 Dr. Riley Swann MD Nurse Practitioner Active Start: June 07, 2025 Dr. Madina Foss MD Attending physician Active Start: June 07, 2025 Team Status: Inactive Member Role/Relationship Status Dates Silvana Ward INSULATION INSPECTOR, INSULATION INSPECTOR-C Primary care physician Active Start: June 08, 2025 End: June 08, 2025 Silvana Ward INSULATION INSPECTOR, INSULATION INSPECTOR-C Referring Provider Active Start: June 08, 2025 End: June 08, 2025 Dr. Madina Foss MD Attending physician Active Start: June 08, 2025 End: June 08, 2025 Team Status: Inactive Member Role/Relationship Status Dates Silvana Haagen INSULATION INSPECTOR, INSULATION INSPECTOR-C Primary care physician Active Start: June 01, 2025 End: June 01, 2025 Silvana Ward INSULATION INSPECTOR, INSULATION INSPECTOR-C Attending physician Active Start: June 01, 2025 End: June 01, 2025 Silvana Ward INSULATION INSPECTOR, INSULATION INSPECTOR-C Referring Provider Active Start: June 01, 2025 End: June 01, 2025 Team Status: Inactive Member Role/Relationship Status Dates Silvana Haagen INSULATION INSPECTOR, INSULATION INSPECTOR-C Primary care physician Active Start: June 06, 2025 End: June 07, 2025 Dr. Caden Cabezas DO Emergency Departme nt Physician Active Start: June 06, 2025 End: June 07, 2025 Dr. Riley Swann MD Admitting physician Active Start: June 06, 2025 End: June 07, 2025 Dr. Riley Swann MD Attending physician Active Start: June 06, 2025 End: June 07, 2025 Team Status: Active Member Role/Relationship Status Dates Silvana Ward INSULATION INSPECTOR, INSULATION INSPECTOR-C Primary care physician Active Start: June 06, 2025 Dr. Be Padilla MD Attending physician Active Start: June 06, 2025 Dr. Pasquale Lo MD Referring Provider Active Start: June 06, 2025 Team Status: Inactive Member Role/Relationship Status Dates Silvana Ward INSULATION INSPECTOR, INSULATION INSPECTOR-C Primary care physician Active Start: June 13, 2025 End: June 13, 2025 Silvana Ward INSULATION INSPECTOR, INSULATION INSPECTOR-C Referring Provider Active Start: June 13, 2025 End: June 13, 2025 Sheila BERGER PA-C Attending physician Active Start: June 13, 2025 End: June 13, 2025 Team Status: Inactive Member Role/Relationship Status Dates Silvana Ward INSULATION INSPECTOR, INSULATION INSPECTOR-C Primary care physician Active Start: June 20, 2025 End: June 20, 2025 Silvana Ward INSULATION INSPECTOR, INSULATION INSPECTOR-C Referring Provider Active Start: June 20, 2025 End: June 20, 2025 Dr. Riley Swann MD Attending physician Active Start: June 20, 2025 End: June 20, 2025 Team Status: Active Member Role/Relationship Status Dates Silvana Ward INSULATION INSPECTOR, INSULATION INSPECTOR-C Primary care physician Active Start: June 22, 2025 CELINE Dominguez Attending physician Active Star t: June 22, 2025 CELINE Dominguez Referring Provider Active Start : June 22, 2025 Team Status: Active Member Role/Relationship Status Dates Silvana Ward INSULATION INSPECTOR, INSULATION INSPECTOR-C Primary care physician Active Start: June 26, 2025 CELINE Dominguez Attending physician Active Star t: June 26, 2025 CELINE Dominguez Referring Provider Active Start : June 26, 2025 Team Status: Inactive Member Role/Relationship Status Dates Silvana Ward INSULATION INSPECTOR, INSULATION INSPECTOR-C Primary care physician Active Start: April 05, 2025 End: April 05, 2025 Dr. Jacinto Smith DO Attending physician Active Start: April 05, 2025 End: April 05, 2025 Dr. Jacinto Smith DO Referring Provider Active Start: April 05, 2025 End: April 05, 2025 Team Status: Inactive Member Role/Relationship Status Dates Silvana Ward INSULATION INSPECTOR, INSULATION INSPECTOR-C Primary care physician Active Start: May 25, 2025 End: May 25, 2025 Silvana Ward INSULATION INSPECTOR, INSULATION INSPECTOR-C Referring Provider Active Start: May 25, 2025 End: May 25, 2025 Dr. Riley Swann MD Attending physician Active Start: May 25, 2025 End: May 25, 2025 Team Status: Inactive Member Role/Relationship Status Dates Silvana Ward INSULATION INSPECTOR, INSULATION INSPECTOR-C Primary care physician Active Start: May 29, 2025 End: May 29, 2025 Dr. Riley Swann MD Attending physician Active Start: May 29, 2025 End: May 29, 2025 Dr. Riley Swann MD Referring Provider Active Start: May 29, 2025 End: May 29, 2025 Team Status: Active Member Role/Relationship Status Dates Silvana Ward INSULATION INSPECTOR, INSULATION INSPECTOR-C Primary care physician Active Start: May 29, 2025 Dr. Riley Swann MD Attending physician Active Start: May 29, 2025 Dr. Riley Swann MD Referring Provider Active Start: May 29, 2025 Dr. Riley Swann MD Nurse Practitioner Active Start: May 29, 2025 Team Status: Inactive Member Role/Relationship Status Dates Silvana Ward INSULATION INSPECTOR, INSULATION INSPECTOR-C Primary care physician Active Start: June 01, 2025 End: June 01, 2025 Silvana Ward INSULATION INSPECTOR, INSULATION INSPECTOR-C Attending physician Active Start: June 01, 2025 End: June 01, 2025 Silvana Ward INSULATION INSPECTOR, INSULATION INSPECTOR-C Referring Provider Active Start: June 01, 2025 End: June 01, 2025 Team Status: Inactive Member Role/Relationship Status Dates Silvana Ward INSULATION INSPECTOR, INSULATION INSPECTOR-C Primary care physician Active Start: June 04, 2025 End: June 04, 2025 Silvana Ward INSULATION INSPECTOR, INSULATION INSPECTOR-C Referring Provider Active Start: June 04, 2025 End: June 04, 2025 Dr. Riley Swann MD Attending physician Active Start: June 04, 2025 End: June 04, 2025 Team Status: Inactive Member Role/Relationship Status Dates Silvana Ward INSULATION INSPECTOR, INSULATION INSPECTOR-C Primary care physician Active Start: June 06, 2025 End: June 07, 2025 Dr. Caden Cabezas , DO Emergency Departme nt Physician Active Start: June 06, 2025 End: June 07, 2025 Dr. Riley Swann MD Admitting physician Active Start: June 06, 2025 End: June 07, 2025 Dr. Riley Swann MD Attending physician Active Start: June 06, 2025 End: June 07, 2025 Team Status: Active Member Role/Relationship Status Dates Silvana Ward INSULATION INSPECTOR, INSULATION INSPECTOR-C Primary care physician Active Start: June 06, 2025 Dr. Be Padilla MD Attending physician Active Start: June 06, 2025 Dr. Pasquale Lo MD Referring Provider Active Start: June 06, 2025 Team Status: Active Member Role/Relationship Status Dates Silvana Ward INSULATION INSPECTOR, INSULATION INSPECTOR-C Primary care physician Active Start: June 06, 2025 Dr. Caden Cabezas DO Emergency Department Physician A ctive Start: June 06, 2025 Dr. Riley Swann MD Admitting physician Active Start: June 06, 2025 Dr. Riley Swann MD Attending physician Active Start: June 06, 2025 Dr. Riley Swann MD Nurse Practitioner Active Start: June 06, 2025 Team Status: Active Member Role/Relationship Status Dates Silvana Ward INSULATION INSPECTOR, INSULATION INSPECTOR-C Primary care physician Active Start: June 07, 2025 Dr. Caden Cabezas , DO Emergency Departme nt Physician Active Start: June 07, 2025 Dr. Riley Swann MD Admitting physician Active Start: June 07, 2025 Dr. Riley Swann MD Nurse Practitioner Active Start: June 07, 2025 Dr. Madina Foss MD Attending physician Active Start: June 07, 2025 Team Status: Inactive Member Role/Relationship Status Dates Silvana Ward INSULATION INSPECTOR, INSULATION INSPECTOR-C Primary care physician Active Start: June 08, 2025 End: June 08, 2025 Silvana Ward INSULATION INSPECTOR, INSULATION INSPECTOR-C Referring Provider Active Start: June 08, 2025 End: June 08, 2025 Dr. Madina Foss MD Attending physician Active Start: June 08, 2025 End: June 08, 2025 Team Status: Inactive Member Role/Relationship Status Dates Silvana Ward INSULATION INSPECTOR, INSULATION INSPECTOR-C Primary care physician Active Start: June 13, 2025 End: June 13, 2025 Silvana Ward INSULATION INSPECTOR, INSULATION INSPECTOR-C Referring Provider Active Start: June 13, 2025 End: June 13, 2025 Sheila BERGER, PA-C Attending physician Active Start: June 13, 2025 End: June 13, 2025 Team Status: Inactive Member Role/Relationship Status Dates Silvana Ward INSULATION INSPECTOR, INSULATION INSPECTOR-C Primary care physician Active Start: June 20, 2025 End: June 20, 2025 Silvana Ward INSULATION INSPECTOR, INSULATION INSPECTOR-C Referring Provider Active Start: June 20, 2025 End: June 20, 2025 Dr. Riley Swann MD Attending physician Active Start: June 20, 2025 End: June 20, 2025 Team Status: Inactive Member Role/Relationship Status Dates Silvana Ward INSULATION INSPECTOR, INSULATION INSPECTOR-C Primary care physician Active Start: July 03, 2025 End: July 03, 2025 Silvana Ward INSULATION INSPECTOR, INSULATION INSPECTOR-C Referring Provider Active Start: July 03, 2025 End: July 03, 2025 Dr. Riley Swann MD Attending physician Active Start: July 03, 2025 End: July 03, 2025 Team Status: Active Member Role/Relationship Status Dates Silvana Ward NP, INSULATION INSPECTOR-C Primary care physician Active Start: July 11, 2025 CELINE Dominguez Attending physician Active Star t: July 11, 2025 CELINE Dominguez Referring Provider Active Start : July 11, 2025 Reason for Visit (unrecogniz ed section and content) Reason Comments Yearly Exam Reason Comments Results Reason Comments Results Echo Reason Comments Orders Reason Comments Yearly Exam Reason Comments Appointment Reason Comments 2022 Healthy Living program form Reason Comments Hematuria Reason Comments Yearly Exam Reason Onset Date Comments Refill Request 05/03/2024 Reason Onset Date Comments Refill Request 07/11/2024 Reason Onset Date Comments Refill Request 11/03/2024 Reason Comments Yearly Exam Reason Comments Insurance Authorization INFORMATION SOURCE (unrecogn ized section and content) DATE CREATED AUTHOR 04/17/2025 [facility] DATE CREATED AUTHOR AUTHOR'S ESAU CHAIDEZ 07/11/2025 [facility] FOR RECORDS PERTAINING TO PATIENTS WHO ARE [...] BE BASED ON THE PRIMARY CLINICAL RECORDS. [employer] [employer] [facility]. provides no warranty or guarantee of the accuracy or completeness of information in this document.
== END | disposition home or self-care (01) ==
LOC: LABSPEC 10:32
PROVIDERS: PCP Registered Nurse; Referring Provider Physician Assistant; Visit Provider Physician Assistant
DX: Z98.890 Other specified postprocedural states (principal)
CPT/HCPCS: 87070; 87075; 87077; 87186; 87205

== ENCOUNTER 2025-07-18 11:30 | Outpatient (RCR) | payer OTHER, SELFPAY ==
--- NOTE | 2025-04-24 09:35 | HP.PTEVAL ---
Patient's Visit Information Visit Information Visit Information: CHRISTIN BABB is a 50 year old F referred to Physical Therapy by CELINE Dominguez with a diagnosis of medial meniscal tear, MCL sprain, and L knee OA. DOS: 04/05/25meniscal repair. Date of Evaluation: 04/24/25 Physical Therapist: dEdie Garzon DPT Visit Plan Frequency: 2-3x /Week Duration: 6 Weeks Plan: 1) L knee ROM 0-0-90deg 2) quad iso progressing to hip strengthening. PT. is currently NWBing on LLE. ice and vase for edema control. Subjective Subjective: Pt. is here today for her initial evaluation with diagnosis of medial meniscal tear, MCL sprain, and L knee OA. DOS: 04/05/25. Pt. arrives using B crutches. Pt. is currently NWBing on her L knee. She is able to open up her TROM brace to 90deg while seated. Pt. works at [employer]. Pt. reports overall doing well, but has marked edema. Pt. has been getting around well with her crutches without limitations. She denies calf pain, no fever, no chest pains. Pt. 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 Pain L knee: Pain Intensity (Out of 10): 3 Pain Intensity Range: 1 and 6 Objective Objective: POSTURE: Pt. is NWbing on LLE currently. Pt. does a great job maintaining. PALPATION: Pt. just had stitches removed. Pt. has some redness at incisions, but no signs of infection. Negative homans NEURO: Pt. has normal sensation in BLEs. ROM: L knee: PROM 0-0-66deg. Tightness in HS noted. MMT: Pt. has decent quad set and is able to complete SLR without brace with minimal lag. GAIT: Pt. ambulates well with B crutches, NWBing. Balance/Special Test Scores Lower Extremity Functional Score: 20 Goals Goal 1:: LTG: Pt. to be I with HEP. Goal Time Frame: 4-6 Weeks Goal 2:: STG: Pt. to sleep throughout the night without increase in symptoms. Goal Time Frame: 2 Weeks Goal 3:: STG: Pt. to have increased L knee ROM to 0-0-90deg. Goal Time Frame: 2-4 Weeks Goal 4:: LTG: Pt. to have full L knee ROM without increase in symptoms. Goal Time Frame: 2-4 Weeks Goal 5:: STG: Pt. to complete SLR without extensor lag x20 Goal Time Frame: 2 Weeks Goal 6:: LTG: pt. to have full strength of LLE without increase in symtpoms. Goal Time Frame: 4-6 Weeks Rehabilitation Potential Physical Therapy Diagnosis: Pt. has signs and symptoms consistent with medial meniscal tear, MCL sprain, and L knee OA. DOS: 04/05/25meniscal repair. Pt. has marked hypomobility, weakness, and difficulty walking. She would benefit from PT to address her limitations progressing back to all previous levels of activity. Rehabilitation Potential: Excellent Anticipated Interventions Patient/Client Instruction: Educate patient on: Condition, Plan of Care, Risk Factors and Benefits of Fitness Program For the Purpose of:: To improve health and function, To foster healthy habits, To improve decision making, To facilitate caregiver knowledge, To improve self management, To prevent re-injury and To improve ability to perform tasks related to life management Therapeutic Exercise to Include: Strength training, Power training, Endurance training, Coordination, Postural training, Flexibilty training and Gait and locomotor training For the Purpose of:: To decrease pain, To decrease swelling/inflammation, To increase ROM, To improve nutrient delivery to tissue, To increase oxygenation perfusion, To improve muscle performance and motor function, To improve ability to perform ADL's and To increase tolerance to activity/condition/position Cryotherapy (ice pack, ice massage): Yes Vasopneumatic device: Yes For the Purpose of:: To decrease pain, To decrease swelling/inflammation and To increase ROM Text: Thank you for the opportunity to evaluate your patient. For Medicare and Medicare HMO plans, please review the plan of care and approve it. It will need to be FAXED BACK to us at [phone] for Medicare purposes. For Medicare only, by signing this I certify the plan of care. Please let me know if there are questions or concerns regarding this plan of care. Physician Signature: Date:
--- NOTE | 2025-05-15 13:09 | HP.PTREVAL ---
Re-Evaluation Intro: CELINE Dominguez, It has been my pleasure to treat CHRISTIN BBAB over the last 8 visits for medial meniscal tear, MCL sprain, and L knee OA. DOS: 04/05/25meniscal repair. Please see the progress note below for an update on the physical therapy plan of care! Subjective Subjective: Pt. reports overall doing well. Pt. arrives with TROM brace locked in extension and NWBing. HEP compliant without issues. Objective Objective/Function: ROM: 0-0-110deg. non forceful. MMT: LLE: PT. able to complete SLR x20 without extensor lag. hip abduction 34.4#, ext 44.3#. Pt. ahs some tingling with palpation of medial joint line. Pt. is overall doing well. Pt. reports being pleased. She is to see physician later today. Plan Plan Plan: Progress per physicians instruction pending results of follow up today. Balance/Gait/Functional tests Balance/Special Test Scores Lower Extremity Functional Score: 20 Goals Goals Goal 1:: LTG: Pt. to be I with HEP. Goal Time Frame: 4-6 Weeks Goal Progress: Progressing Goal 2:: STG: Pt. to sleep throughout the night without increase in symptoms. Goal Time Frame: 2 Weeks Goal Progress: Goal Met Goal 3:: STG: Pt. to have increased L knee ROM to 0-0-90deg. Goal Time Frame: 2-4 Weeks Goal Progress: Goal Met Goal 4:: LTG: Pt. to have full L knee ROM without increase in symptoms. Goal Time Frame: 2-4 Weeks Goal Progress: Progressing Goal 5:: STG: Pt. to complete SLR without extensor lag x20 Goal Time Frame: 2 Weeks Goal Progress: Goal Met Goal 6:: LTG: pt. to have full strength of LLE without increase in symtpoms. Goal Time Frame: 4-6 Weeks Anticipated Interventions Anticipated Interventions Patient/Client Instruction: Educate patient on: Condition, Plan of Care, Risk Factors and Benefits of Fitness Program For the Purpose of:: To improve health and function, To foster healthy habits, To improve decision making, To facilitate caregiver knowledge, To improve self management, To prevent re-injury and To improve ability to perform tasks related to life management Therapeutic Exercise to Include: Strength training, Power training, Endurance training, Coordination, Postural training, Flexibilty training and Gait and locomotor training For the Purpose of:: To decrease pain, To decrease swelling/inflammation, To increase ROM, To improve nutrient delivery to tissue, To increase oxygenation perfusion, To improve muscle performance and motor function, To improve ability to perform ADL's and To increase tolerance to activity/condition/position Cryotherapy (ice pack, ice massage): Yes Vasopneumatic device: Yes For the Purpose of:: To decrease pain, To decrease swelling/inflammation and To increase ROM Re-Evaluation Ending Re-evaluation ending: Please do not hesitate to contact me at [phone] by phone or if you have questions or concerns regarding this new plan of care! Sincerely, YANICK HoangT
--- NOTE | 2025-07-18 12:45 | HP.PTDCSUM ---
Discharge Summary D/C summary: It has been my pleasure to treat ELIZABETH BABB referred by CELINE Dominguez, with the diagnosis of medial meniscal tear, MCL sprain, and L knee OA. DOS: 04/05/25meniscal repair for a total of 24 visit(s). Discharge Date: 07/18/25 Please see the following information for a summary of their discharge status. Subjective Subjective: Elizabeth is overall doing well. Pt. reports no pain. She has tolerated all work well without issues. Pt. reports some medial knee soreness/catching with bottom of squat motion Pain L knee: Pain Intensity (Out of 10): 0 Overall Improvement % Improvement: 90 Objective Objective/Function: Elizabeth has great ROM, much better symptoms with squatting today after IASTIM, Pt. reports overall not much pain with all work and recreational activities. Pt. has good strength as well. pt. will be DC from PT this date. Pt. is to continue with ROM and strengthening exercises on her own, patient consents. Goals Goal 1:: LTG: Pt. to be I with HEP. Goal Progress: Goal Met Goal 2:: STG: Pt. to sleep throughout the night without increase in symptoms. Goal Progress: Goal Met Goal 3:: STG: Pt. to have increased L knee ROM to 0-0-90deg. Goal Progress: Goal Met Goal 4:: LTG: Pt. to have full L knee ROM without increase in symptoms. Goal Progress: Goal Met Goal 5:: STG: Pt. to complete SLR without extensor lag x20 Goal Progress: Goal Met Goal 6:: LTG: pt. to have full strength of LLE without increase in symtpoms. Goal Progress: Goal Met Plan Plan: Pt. to be DC from PT today D/C Information d/c sentence: If there are questions or concerns regarding this patient's physical therapy, please feel free to call me at [phone]. Thank you for the referral of this patient. Sincerely, Eddie Almaguer Sipos, DPT Balance/Gait/Functional tests Balance/Special Test Scores Lower Extremity Functional Score: 72 Improvement % Improvement: 90
== END 2025-07-18 19:00 | disposition home or self-care (01) ==
LOC: PT 11:30
PROVIDERS: PCP Registered Nurse; Referring Provider Physician Assistant Surgical; Visit Provider Physician Assistant Surgical
DX: S83.242D Other tear of medial meniscus, current injury, left knee, subsequent encounter (principal); S83.412D Sprain of medial collateral ligament of left knee, subsequent encounter; M17.12 Unilateral primary osteoarthritis, left knee
CPT/HCPCS: 97016; 97110; 97140; 97161; 97530

== ENCOUNTER → 2025-07-27 | Outpatient (CLI) | payer OTHER, SELFPAY ==
--- OUTSIDE RECORDS SUMMARY | 2025-07-27 06:48 | XMS RPT_ITS | CCD ---
Author Organization [facility] CliniSynd Care Team Providers Care Foot Roentgenologist Name Role Phone Hari Moss PA-C Primary Care Provider 1( [...] Dr. Alejandro Graham Attending Provider Sylvia PAUL, PERFORATING MACHINE OPERATOR-C Silvana Primary Care Provider [phone] Sylvia PAUL, PERFORATING MACHINE OPERATOR-C Silvana Referring Provider CELINE Bagley Attending Provider Dr. Alejandro Graham Attending Provider Dr. Jose Ramon Byers Attending Provider Haagen PERFORATING MACHINE OPERATOR, PERFORATING MACHINE OPERATOR-C Silvana Primary Care Provider Haagen PERFORATING MACHINE OPERATOR, PERFORATING MACHINE OPERATOR-C Silvana Referring Provider CELINE Bagley Attending Provider Dr. Alejandro Graham Attending Provider Dr. Jose Ramon Byers Attending Provider [phone] CELINE Bagley Referring Provider [phone] Jose Ramon Byers Referring Provider [phone] Jose Ramon Byers Other Provider Hari Moss PA-C Primary Care Provider Jeff Moss PA-C Primary Care Provider Unavailable Haagen MOVABLE BULKHEAD INSTALLER.ANIMAL DAYCARE PROVIDER, Silvana Unavailable Suppan MOVABLE BULKHEAD INSTALLER.ANIMAL DAYCARE PROVIDER, Odessa A Unavailable [phone] Haagen MOVABLE BULKHEAD INSTALLER.ANIMAL DAYCARE PROVIDER, Silvana Primary Care Provider Haagen PERFORATING MACHINE OPERATOR-C, Silvana Primary Care Provider Dr. Jacinto Smith DO Attending Provider Dr. Jacinto Smith DO Referring Provider Sid PERFORATING MACHINE OPERATOR-C, Desiree E Attending Provider Sid PERFORATING MACHINE OPERATOR-C, Desiree E Referring Provider Marty Gil MD Attending Provider Haagen PERFORATING MACHINE OPERATOR-C, Silvana Referring Provider Dr. Gus Wen DO Attending Provider Geoff PERFORATING MACHINE OPERATOR-CKeenan Attending Provider Radha PAUL-CHanna Attending Provider Haagen PERFORATING MACHINE OPERATOR-C, Silvana Primary Care Provider Haagen PERFORATING MACHINE OPERATOR-C, Silvana Referring Provider Dr. Riley Swann MD Attending Provider Darvin LEON, Dr. Casey Attending Provider Darvin LEON, Dr. Casey Referring Provider Assessment, Health Risk Attending Provider Unava ilable Assessment, Health Risk Referring Provider Unava ilable Haagen PERFORATING MACHINE OPERATOR-C, [facility] Primary Care Provider Haagen PERFORATING MACHINE OPERATOR-C, [facility] Referring Provider Urban HILLIARD, Dr. Sna Attending Provider Kaela HILLIARD, Dr. Soto Attending Provider Unavailab le HAAGEN, SILVANA Attending Unavailable HAAGEN, [facility] Primary Care Unavailable Haagen PERFORATING MACHINE OPERATOR-C, [facility] Primary Care Physician Urban HILLIARD, Dr. San Attending Physician Darvin LEON, Dr. Casey Attending Physician Kaela HILLIARD, Dr. Soto Attending Physician Unavaila ble Assessment, Health Risk Attending Physician Unav ailable Haagen PERFORATING MACHINE OPERATOR-C, [facility] Referring Provider Dr. Riley Swann MD Attending Physician Harriet Almaraz Attending Physician Harriet Almaraz Referring Provider Dr. Riley Swann MD Referring Provider Dr. Riley Swann MD Nurse Practitioner Haagen PERFORATING MACHINE OPERATOR-C, Silvana Attending Physician Harriet Almaraz Attending Physician Harriet Almaraz Referring Provider Harriet Almaraz Attending Physician Harriet Almaraz Referring Provider Dr. Caden Cabezas DO Emergency Department Physic meghan Dr. Riley Swann MD Admitting Physician Pipo HILLIARD, Dr. Painter Attending Physician Dr. Be Padilla MD Attending Physician [phone] Dr. Pasquale Lo MD Referring Provider Unavail able Sheila Serra PA-C Attending Physician Harriet Almaraz Attending Physician [phone] Harriet Almaraz Referring Provider [phone] Harriet Almaraz Attending Physician Harriet Almaraz Referring Provider Hanna Garcia Attending Unavailable Haagen PERFORATING MACHINE OPERATOR, Silvana Referring Unavailable Haagen PERFORATING MACHINE OPERATOR, Silvana Primary Care Unavailable Riley Swann Attending Unavailable Haagen PERFORATING MACHINE OPERATOR, Silvana Referring Unavailable Haagen PERFORATING MACHINE OPERATOR, Silvana Primary Care Unavailable RobothamMadina Attending Unavailable Haagen PERFORATING MACHINE OPERATOR, Silvana Referring Unavailable Haagen PERFORATING MACHINE OPERATOR, Silvana Primary Care Unavailable Haagen PERFORATING MACHINE OPERATOR, Silvana Primary Care Unavailable Haagen PERFORATING MACHINE OPERATOR, Silvana Referring Unavailable Sheila Gonzalez Attending Unavailable Hanna Garcia Attending Unavailable Haagen PERFORATING MACHINE OPERATOR, Silvana Primary Care Unavailable Madina Foss Attending Unavailable Riley Swann A Admitting Unavailable Riley Swann Consulting Unavailable Haagen PERFORATING MACHINE OPERATOR, Silvana Primary Care Unavailable Sid PERFORATING MACHINE OPERATOR, Desiree E Attending Unavailabl e Sid PERFORATING MACHINE OPERATOR, Desiree E Referring Unavailabl e Haagen PERFORATING MACHINE OPERATOR, Silvana Primary Care Unavailable Sid PERFORATING MACHINE OPERATOR, Desiree E Referring Unavailabl e Sid PERFORATING MACHINE OPERATOR, Desiree E Attending Unavailabl e Haagen PERFORATING MACHINE OPERATOR, Silvana Primary Care Unavailable Gus Wen Attending Unavailable Haagen PERFORATING MACHINE OPERATOR, Silvana Referring Unavailable Haagen PERFORATING MACHINE OPERATOR, Silvana Primary Care Unavailable Haagen PERFORATING MACHINE OPERATOR, Silvana Primary Care Unavailable Haagen PERFORATING MACHINE OPERATOR, Silvana Attending Unavailable Haagen PERFORATING MACHINE OPERATOR, Silvana Referring Unavailable Jacinto Smith Attending Unavailable Mistyle Jacinto Referring Unavailable Haagen PERFORATING MACHINE OPERATOR, Silvana Primary Care Unavailable Marty Gil Attending Unavailable Haagen PERFORATING MACHINE OPERATOR, Silvana Primary Care Unavailable Jacinto Smith Attending Unavailable Marshattle, Jacinto Referring Unavailable Haagen PERFORATING MACHINE OPERATOR, Silvana Primary Care Unavailable Riley Swann Attending Unavailable Riley Swann A Admitting Unavailable Haagen PERFORATING MACHINE OPERATOR, Silvana Primary Care Unavailable Haagen PERFORATING MACHINE OPERATOR, Silvana Primary Care Unavailable Riley Swann Attending Unavailable Haagen PERFORATING MACHINE OPERATOR, Silvana Referring Unavailable Haagen PERFORATING MACHINE OPERATOR, Silvana Primary Care Unavailable Wanek, Riley Glez Attending Unavailable Haagen PERFORATING MACHINE OPERATOR, Silvana Referring Unavailable Friend, Gus Attending Unavailable Haagen PERFORATING MACHINE OPERATOR, Silvana Referring Unavailable Haagen PERFORATING MACHINE OPERATOR, Silvana Primary Care Unavailable Wanek, Riley Glez Attending Unavailable Wanek, Riley Glez Referring Unavailable Haagen PERFORATING MACHINE OPERATOR, Silvana Primary Care Unavailable SpittJacinto león Attending Unavailable Spittle, Jacinto Referring Unavailable Haagen PERFORATING MACHINE OPERATOR, Silvana Primary Care Unavailable Assessment, Health Risk Attending Unavaila ble Assessment, Health Risk Referring Unavaila ble Haagen PERFORATING MACHINE OPERATOR, Silvana Primary Care Unavailable Haagen PERFORATING MACHINE OPERATOR, Silvana Primary Care Unavailable Harriet Larry Attending Unavailable Harriet Larry Referring Unavailable Roof PERFORATING MACHINE OPERATOR, Keenan Pradhan Attending Unavailable Haagen PERFORATING MACHINE OPERATOR, Silvana Referring Unavailable Haagen PERFORATING MACHINE OPERATOR, Silvana Primary Care Unavailable Charles Sherwood Attending Unavailable Spittle, Jacinto Referring Unavailable Haagen PERFORATING MACHINE OPERATOR, Silvana Primary Care Unavailable Wanek, Riley Glez Attending Unavailable Haagen PERFORATING MACHINE OPERATOR, Silvana Referring Unavailable Haagen PERFORATING MACHINE OPERATOR, Silvana Primary Care Unavailable Friend, Gus Attending Unavailable Haagen PERFORATING MACHINE OPERATOR, Silvana Referring Unavailable Haagen PERFORATING MACHINE OPERATOR, Silvana Primary Care Unavailable Wanek, Riley Glez Attending Unavailable Wanek, Riley Glez Referring Unavailable WanekRiley Consulting Unavailable Haagen PERFORATING MACHINE OPERATOR, Silvana Primary Care Unavailable WanekRiley Attending Unavailable WanekRiley Attending Unavailable Haagen PERFORATING MACHINE OPERATOR, Silvana Referring Unavailable Haagen PERFORATING MACHINE OPERATOR, Silvana Primary Care Unavailable Haagen PERFORATING MACHINE OPERATOR-C, Silvana Primary Care Physician Dr. Jacinto Smith DO Attending Physician Dr. Jacinto Smith DO Referring Provider Haagen PERFORATING MACHINE OPERATOR-C, Silvana Referring Provider Dr. Riley Swann MD Attending Physician Dr. Riley Swann MD Referring Provider Shree HILLIARD, Dr. Riley Glez Nurse Practitioner Haagen PERFORATING MACHINE OPERATOR-C, Silvana Attending Physician Dr. Caden Cabezas DO Emergency Department Physic meghan Shree HILLIARD, Dr. Riley Glez Admitting Physician Dr. Be Padilla MD Attending Physician Kaci HILLIARD, Dr. Giordano Referring Provider Unavail laurie Foss MD, Dr. Painter Attending Physician [phone] Sheila Serra PA-C Attending Physician Harriet Almaraz Attending Physician Harriet Almaraz Referring Provider [phone] Allergies Allergy Classification Reported Allergen(s) Allergy Type Date of Onset Reaction(s) Facility (20 sources) Latex; Translations: [LATEX] Drug Intolerance 3 [facility] (20 sources) Penicillins; Translations: [PENICILLINS] Drug Intolerance 3 [facility] (20 sources) Sulfonamides (Antibiotic); Translations: [SULFA (SULFONAMIDE ANTIBIOTICS)] Drug Intolerance 3 [facility] (20 sources) Penicillins Allergy to substance 2 other [facility] Comment on above: Showed on an allergy test (20 sources) Sulfonamides (Antibiotic) Allergy to substance 2 [facility] (3 sources) Penicillins Drug Intolerance 3 [facility] (1 source) Latex Drug allergy (disorder) 5 [facility] Repository (1 source) Penicillins Drug allergy (disorder) 5 [facility] Repository (1 source) Sulfonamides (Antibiotic) Drug allergy (disorder) 5 [facility] Repository Medications Current Medications Medication Drug Class(es) [...] 09, 2025 11:00pm June 10, 2025 11:10pm [id number] 0.3 ml EPINEPHrine 1 mg/ml auto-injector (3 [...] hours as needed for pain polymyxin b [id number] unt/ml / trimethoprim 1 mg/ml ophthalmic solution [...] (BMI) of 38.0 to 38.9 in adult ([facility])] 03-13-2025 Chronic Other nutritional; endocrine; and metabolic disorders (1 source) Morbid (severe) obesity due to excess calories; Translations: [Class 2 severe obesity due to excess calories with serious comorbidity and body mass index (BMI) of 38.0 to 38.9 in adult ([facility])] Onset: 03-13-2025 Chronic Other nutritional; endocrine; and metabolic disorders (1 source) Body mass index (BMI) 38.0-38.9, adult; Translations: [Class 2 severe obesity due to excess calories with serious comorbidity and body mass index (BMI) of 38.0 to 38.9 in adult ([facility])] Onset: 03-13-2025 Chronic Other screening for suspected [...] (BMI) of 38.0 to 38.9 in adult ([facility]); Translations: [Class 2 severe obesity due to [...] Surgery Visit Reporton 07-03 Surgery Visit Report [facility] [address] [place] [address]. [address] [place] [address] OFFICE VISIT Date of Service: 07/03/25 MR#: [id number] Acct: [id number] Name: ELIZABETH BABB Rep #: [id number] : 1975 Provider: Dr. Riley alexandre MD Age/Sex: 50/F Location: [facility] Status: Signed Intake Vital Signs 06/08/25 13:25 [...] Diagnoses Status post incision and drainage Z98.890 [facility] Medical History Normal Holter exam Anal [...] wound. I (more content not included)... Normal [facility] Surgery Visit Reporton 06-20 Surgery Visit Report [facility] [address] [place] [address] OFFICE VISIT Date of Service: 06/20/25 MR#: [id number] Acct: [id number] Name: ELIZABETH BABB Rep #: [id number] : 1975 Provider: Dr. 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 I (more content not included)... Normal [facility] Surgery Visit Reporton 06-13 Surgery Visit Report [facility] [address] [place] [address] OFFICE VISIT Date of Service: 06/13/25 MR#: [id number] Acct: [id number] Name: ELIZABETH BABB Rep #: [id number] : 1975 Provider: KAVON olivo Age/Sex: 50/F Location: [facility] Status: Signed Intake Vital Signs 05/29/25 12:23 [...] Diagnoses Status post incision and drainage Z98.890 [facility] Medical History (Updated 06/12/25 @ 00:00 by [...] Epsom salts (more content not included)... Normal [facility] Surgery Visit Reporton 06-08 Surgery Visit Report [facility] [address] [place] [address] OFFICE VISIT Date of Service: 06/08/25 MR#: [id number] Acct: [id number] Name: ELIZABETH BABB Rep #: [id number] : 1975 Provider: Dr. Madina monsivais MD Age/Sex: 50/F Location: [facility] Status: Signed Intake Vital Signs 06/06/25 09:48 [...] Diagnoses Status post incision and drainage Z98.890 [facility] Medical History Normal Holter exam Anal [...] at this time. Madina Foss M.D. Pager: [phone] [facility] [address] [place] [address], [facility], [address] [place] [address] Office: [phone] Plan Details Goals Barriers: Goals Decrease spasm Impr (more content not included)... Normal [facility] Discharge Instructionon Discharge Instruction [facility] Medical Records Department [address] [place], [place] [id number] Instructions for Home/Discharge Instructions 06/07/25 1139 MR#: [id number] Acct: [id number] Name: ELIZABETH BABB Rep #: [id number] : 1975 50 From: Madina Foss MD [...] 5 PM and on the weekends call [phone] with any concerns. Test Results: Test results [...] Referrals / Follow Up: Silvana Ward NP, PERFORATING MACHINE OPERATOR-C [Primary Care Provider, Medical] Disposition Disposition (needs filled in before D/C Order can be placed): Home, Self Care 06/07/25 1142 Madina Foss MD CC: KENISHA Ward; Dr. Riley Swann MD Signed Normal [facility] Electrocardiogram reportOrde red By: Be Padilla on 06-07-2025 EKG study [facility] [address] [place] [address] 12 Lead EKG 06/06/25 1028 MR#: [id number] Acct: [id number] Name: ELIZABETH BABB Rep #:[id number] : 1975 50 From: Be Padilla MD Attending Dr: Dr. Riley Swann MD Status: ADM VALERIE Ordering Dr: Pasquale Lo MD Date: 1 Location[place] [facility] [place] Sex: F C Admitted: 06/06/25 Test Reason [...] found Confirmed by BE PADILLA MD ([id number]), science editor SHEILA FRANCISCO ([id number]) on 55:48:07 AM Referred By: KACI Confirmed By: BE PADILLA MD 06/07/25 0548 Date _ Be Padilla MD CC: KENISHA Ward; Dr. Pasquale oL MD; Dr. Riley Swann MD ~ Signed [facility] Other 12 Lead EKGon 06-06-2025 12 Lead EKG [facility] [address] [place] [address] 12 Lead EKG 06/06/25 1028 MR#: [id number] Acct: [id number] Name: ELIZABETH BABB Rep #: [id number] : 1975 50 From: Be Padilla MD Attending Dr: Dr. Riley Swann MD Status: AD Hari PADILLA Ordering Dr: Pasquale Lo MD Date: 06/06/25 [place] [facility] [place] Sex: F C Admitted: 06/06/25 Test Reason [...] found Confirmed by THUY HILLIARD, BE ([id number]), science editor SHEILA FRANCISCO ([id number]) on 06/07/2025 5:48:07 AM Referred By: KACI Confirmed By: BE PADILLA MD 06/07/25 0548 Date Be Padilla MD CC: KENISHA Ward; Dr. Pasquale Lo MD; Dr. Riley Swann MD Signed Normal [facility] Absolute lymphocyte countOrd ered By: Caden Cabezas on 06-06-2025 Lymphocytes Auto (Unsp spec) [#/Vol] 1.62 10*3/uL 0.83-4.51 [facility] Absolute neutrophil countOrd ered By: Caden Cabezas on 06-06-2025 Neutrophils (Bld) [#/Vol] 8.5 10*3/uL High 2.0-7.7 [facility] Anion gap in Serum or Plasma Ordered By: Caden Cabezas on 06-06-2025 Anion gap [Moles/Vol] 12 mmol/L 5-15 [facility] Automated lymphocyte count a s percentage of total leukocytesOrdered By: Caden Cabezas on 06-06-2025 Lymphocytes/100 WBC Auto (Unsp spec) 14.3 % Low 19-41 [facility] BUN/creatinine ratioOrdered By: Caden Cabezas on 06-06-2025 Urea nitrogen/Creatinine [Mass ratio] 21.5 mg/mg High 10- [facility] Basic Metabolic Profile (BMP )on 06-06-2025 BUN/CRE 21.5 RATIO High 10- [facility] Comment on above: Performed By: #### L 500.2500, L100.0100, L503.6005 #### [facility] [address] [place], [address] Calcium [Mass/Vol] 9.8 mg/dL Normal 7.6-11.0 [facility] Comment on above: Performed By: #### L 500.2500, L100.0100, L503.6005 #### [facility] [address] [place], [address] Chloride [Moles/Vol] 101 mmol/L Normal 98-108 [facility] Comment on above: Performed By: #### L 500.2500, L100.0100, L503.6005 #### [facility] [address] [place], [address] CO2 [Moles/Vol] 23.7 mmol/L Normal 21.0-32.0 [facility] Comment on above: Performed By: #### L 500.2500, L100.0100, L503.6005 #### [facility] [address] [place], [address] Creatinine [Mass/Vol] 0.87 mg/dL Normal 0.70-1.20 [facility] Comment on above: Performed By: #### L 500.2500, L100.0100, L503.6005 #### [facility] [address] [place], [address] ECRCL 96.60 ml/min Normal 50-250 [facility] Comment on above: Performed By: #### L 500.2500, L100.0100, L503.6005 #### [facility] [address] [place], [address] GAP 12 Normal 5-15 [facility] Comment on above: Performed By: #### L 500.2500, L100.0100, L503.6005 #### [facility] [address] [place], [address] GFR/1.73 sq M.predicted among non-blacks MDRD (S/P/Bld) [Vol rate/Area] 81 mL/min/{1.73_m2} Normal >60 [facility] Comment on above: Result Comment: mL/m in/1.73m2 CKD-EPI Creatinine Equation (2020) Performed By: #### L 500.2500, L100.0100, L503.6005 #### [facility] [address] [place], [address] Glucose [Mass/Vol] 148 mg/dL High 70-99 [facility] Comment on above: Performed By: #### L 500.2500, L100.0100, L503.6005 #### [facility] [address] [place], [address] Potassium [Moles/Vol] 4.6 mmol/L Normal 3.3-5.1 [facility] Comment on above: Performed By: #### L 500.2500, L100.0100, L503.6005 #### [facility] [address] [place], [address] Sodium [Moles/Vol] 137 mmol/L Normal 133-145 [facility] Comment on above: Performed By: #### L 500.2500, L100.0100, L503.6005 #### [facility] [address] [place], [address] Urea nitrogen [Mass/Vol] 19 mg/dL Normal 4-19 [facility] Comment on above: Performed By: #### L 500.2500, L100.0100, L503.6005 #### [facility] [address] [place], [address] Basophil percentageOrdered B y: Caden Cabezas on 06-06-2025 Basophils/100 WBC (Bld) 0.4 % 0-1 [facility] Bedside Glucoseon 06-06-2025 FINGERSTICK GLU 108 mg/dL High 74-106 [facility] Comment on above: Result Comment: XOCHILT TERAN OF PATIENT CARE PER NURSING PROTOCOL Performed By: #### L 501.080 ####[facility] [address] [place], [address] CBC W/Diff, Automatedon 10 Absolute Lymph 1.62 X10 3/uL Normal 0.83-4.51 [facility] Comment on above: Performed By: #### L 500.2500, L100.0100, L503.6005 #### [facility] [address] [place], [address] Absolute Neut 8.5 X10 3/uL High 2.0-7.7 [facility] Comment on above: Performed By: #### L 500.2500, L100.0100, L503.6005 #### [facility] [address] [place], [address] Basophils/100 WBC (Bld) 0.4 % Normal 0-1 [facility] Comment on above: Performed By: #### L 500.2500, L100.0100, L503.6005 #### [facility] [address] [place], [address] Eosinophils/100 WBC (Bld) 1.9 % Normal 0-5 [facility] Comment on above: Performed By: #### L 500.2500, L100.0100, L503.6005 #### [facility] [address] [place], [address] Erythrocyte distribution width (RBC) [Ratio] 11.7 % Normal 11.6-14.6 [facility] Comment on above: Performed By: #### L 500.2500, L100.0100, L503.6005 #### [facility] [address] [place], [address] Hematocrit (Bld) [Volume fraction] 40.9 % Normal 37-47 [facility] Comment on above: Performed By: #### L 500.2500, L100.0100, L503.6005 #### [facility] [address] [place], [address] Hemoglobin (Bld) [Mass/Vol] 14.0 g/dL Normal 12.0-15.0 [facility] Comment on above: Performed By: #### L 500.2500, L100.0100, L503.6005 #### [facility] [address] [place], [address] IG% 0.500 Normal 0.0-0.9 [facility] Comment on above: Result Comment: IG% - Immature Granulocytes (promyelocytes, myelocytes and metamyelocytes) > 1% indicates that a LEFT SHIFT is Present. Performed By: #### L 500.2500, L100.0100, L503.6005 #### [facility] [address] [place], [address] Lymphocytes/100 WBC (Bld) 14.3 % Low 19-41 [facility] Comment on above: Performed By: #### L 500.2500, L100.0100, L503.6005 #### [facility] [address] [place], [address] MCH (RBC) [Entitic mass] 29.2 pg Normal 27.0-32.0 [facility] Comment on above: Performed By: #### L 500.2500, L100.0100, L503.6005 #### [facility] [address] [place], [address] MCHC (RBC) [Mass/Vol] 34.2 g/dL Normal 32-36 [facility] Comment on above: Performed By: #### L 500.2500, L100.0100, L503.6005 #### [facility] [address] [place], [address] MCV (RBC) [Entitic vol] 85.2 fL Normal 81-99 [facility] Comment on above: Performed By: #### L 500.2500, L100.0100, L503.6005 #### [facility] [address] [place], [place], [address] Monocytes/100 WBC (Bld) 7.7 % Normal 0-10 [facility] Comment on above: Performed By: #### L 500.2500, L100.0100, L503.6005 #### [facility] [address] [place], [address] Neutrophils/100 WBC (Bld) 75.2 % High 47-70 [facility] Comment on above: Performed By: #### L 500.2500, L100.0100, L503.6005 #### [facility] [address] [place], [address] Nucleated RBC (Bld) [#/Vol] 0 10*3/uL Normal 0-5 [facility] Comment on above: Performed By: #### L 500.2500, L100.0100, L503.6005 #### [facility] [address] [place], [address] Platelet mean volume (Bld) [Entitic vol] 9.4 fL Normal 6.2-12.0 [facility] Comment on above: Performed By: #### L 500.2500, L100.0100, L503.6005 #### [facility] [address] [place], [address] Platelets (Bld) [#/Vol] 303 10*3/uL Normal 150-450 [facility] Comment on above: Performed By: #### L 500.2500, L100.0100, L503.6005 #### [facility] [address] [place], [address] RBC (Bld) [#/Vol] 4.80 10*6/uL Normal 4.2-5.4 [facility] Comment on above: Performed By: #### L 500.2500, L100.0100, L503.6005 #### [facility] [address] [place], [address] RDW SD 35.9 fl Normal 35.1-43.9 [facility] Comment on above: Performed By: #### L 500.2500, L100.0100, L503.6005 #### [facility] [address] [place], [address] WBC (Bld) [#/Vol] 11.3 10*3/uL High 4.4-11.0 [facility] Comment on above: Performed By: #### L 500.2500, L100.0100, L503.6005 #### [facility] [address] [place], [address] Carbon dioxide, total [Moles /volume] in Central venous bloodOrdered By: Caden Cabezas on 06-06-2025 CO2 [Moles/Vol] 23.7 mmol/L 21.0-32.0 [facility] Chloride assayOrdered By: Keeley Cabezas on 06-06-2025 Chloride [Moles/Vol] 101 mmol/L 98-108 [facility] Emergency Department Summary on 06-06-2025 Emergency Department Summary [facility] Medical Records Department [address] [place] [address] Emergency Department Summary 06/06/25 MR#: [id number] Acct: [id number] Name: ELIZABETH BABB Rep #: [id number] : 1975 50 From: Caden Cabezas DO PCP: KENISHA Pham Status:REG ER Location: ED HPI History of Present Illness Chief Complaint: Wound Check Informant: patient and spouse/S.O. Narrative Narrative: Patient is a 50-year-old female with past medical history of hypertension anxiety and depression and sbe-tyuscls-didfvroq t diabetes. On May 29 she underwent [...] taking her antibiotic she presents for evaluation [facility] Medical History Normal Holter exam Anal fissure [...] dyspnea Gastrointestinal (more content not included)... Normal [facility] Eosinophil percentageOrdered By: Caden Cabezas on 06-06-2025 Eosinophils/100 WBC (Bld) 1.9 % 0-5 [facility] Erythrocyte distribution wid th ratioOrdered By: Caden Cabezas on 06-06-2025 Erythrocyte distribution width (RBC) [Ratio] 11.7 % 11.6-14.6 [facility] Erythrocyte distribution wid th standard deviationOrdered By: Caden Cabezas on 06-06-2025 Erythrocyte distribution width (RBC) [Ratio] 35.9 fl 35.1-43.9 [facility] Glomerular filtration rate ( GFR) estimation/1.73 sq m using serum, plasma, or whole bOrdered By: Caden Cabezas on 06-06-2025 GFR/1.73 sq M.predicted among non-blacks MDRD (S/P/Bld) [Vol rate/Area] 81 mL/min/{1.73_m2} >60 [facility] Comment on above: mL/min/1.73m2 CKD-EP I Creatinine Equation (2020) [facility] deOrdered By: Riley Swann on 06-06-2025 Glucose [Mass/Vol] 108 mg/dL High 74-106 [facility] Comment on above: MANAGEMENT OF PATIEN T CARE PER NURSING PROTOCOL Hematocrit Auto (Bld) [Volum e fraction]Ordered By: Caden Cabezas on 06-06-2025 Hematocrit (Bld) [Volume fraction] 40.9 % 37-47 [facility] Hemoglobin A1con 06-06-2025 HbA1c (Bld) [Mass fraction] 6.1 % High <=5.6 [facility] Comment on above: Order Comment: Comme nts: can run on blood already in lab Result Comment: Norm al < 5.7 % Prediabetic 5.7 - 6.4 % Diabetic >or= 6.5 % Please note range changes. Performed By: #### L 348.2969 #### [facility] [address] [place], [place], [address] Hemoglobin A1c percentageOrd ered By: Pasquale Lo on 06-06-2025 HbA1c (Bld) [Mass fraction] 6.1 % High <5.7 [facility] Comment on above: Normal < 5.7 % Predi abetic 5.7 - 6.4 % Diabetic >or= 6.5 % Please note range changes. Hemoglobin measurementOrdere d By: Caden Cabezas on 06-06-2025 Hemoglobin (Bld) [Mass/Vol] 14.0 g/dL 12.0-15.0 [facility] Immature granulocytes/100 WB C Auto (Bld)Ordered By: Caden Cabezas on 06-06-2025 Immature granulocytes/100 WBC (Bld) 0.500 % 0.0-0.9 [facility] Comment on above: IG% - Immature Granu locytes (promyelocytes, myelocytes and metamyelocytes) > 1% indicates that a LEFT SHIFT is Present. Lactic Acidon 06-06-2025 Lactate [Moles/Vol] 1.4 mmol/L Normal 0.0-2.0 [facility] Comment on above: Order Comment: Y Performed By: #### L 500.2500, L100.0100, L503.6005 #### [facility] [address] [place], [place], [address] Lactic acid measurementOrder ed By: Cdaen Cabezas on 06-06-2025 Lactate [Moles/Vol] 1.4 mmol/L 0.0-2.0 [facility] MCV (mean corpuscular volume ) determinationOrdered By: Caden Cabezas on 06-06-2025 MCV (RBC) [Entitic vol] 85.2 fL 81-99 [facility] MR/POSTOP.ANEon 06-06-2025 MR/POSTOP.ANE [facility] Medical Records Department [address] [place] [address] Anesthesia Postop Eval I 06/06/25 1404 MR#: [id number] Acct: [id number] Name: ELIZABETH BABB #: [id number] : 1975 50 From: Gentry Slater CRNA PCP: KENISHA Pham Status:ADM VALERIE Y Race: C Location: [place] [address] Anesthesia: Postop Eval I Current Vital Signs [...] completed: Yes 06/06/25 1405 Date Gentry Slater HALL COORDINATOR Cosigner Signature: Date CC: Signed Normal [facility] MR/[id number] 06-06-2025 [facility] Medical Records Department [address] [place] [address] Anesthesia Postop Eval II 06/06/25 1513 MR#: [id number] Acct: [id number] Name: CAREN BABBSSNANCY Almaguer Rep #: [id number] : 1975 50 From: Pasquale Lo MD PCP: KENISHA Pham Status:ADM VALERIE Y Race: C Location: [place] [address] Anesthesia Postop Eval I Sum Postop Eval Completion status Anesthesia document: Postop Eval 1 completed: Yes Anesthesia Postop Eval I Summary Anesthesia Postop Eval I Summary: Anesthesia Postop Eval I: Assessment Summary Airway patent Yes 06/06/25 14:05 HALL [email or web address] Spontaneous unlabored Yes 06/06/25 14:05 HALL COORDINATOR.PKEL respirations Mental status Awake,Calm 06/06/25 14:05 HALL COORDINATOR.PKEL nausea No 06/06/25 14:05 HALL COORDINATOR.PKEL Vomiting No 06/06/25 14:05 HALL COORDINATOR.PKEL Anesthesia Postop Eval I: Fluid Summary Crystalloid volume administer 600 06/06/25 14:05 HALL COORDINATOR.PKEL (ml) Colloids volume administered ( ml) Blood Product volume administered (ml) Total IV fluid infused 600 06/06/25 14:05 HALL COORDINATOR.PKEL Anesthesia Postop Eval I: Summary Notes Anesthesia Complication No 06/06/25 14:05 HALL COORDINATOR.PKEL Anesthesia Complication Comment: Post-operative progress note Anesthesia: Postop Eval II Evaluation Mental status: Awake and Calm Pain Level: 1 nausea: No Vomiting: No Complications Anesthesia Complication: No 06/06/25 1513 Date Pasquale Lo MD Cosigner Signature: Date CC: Signed Normal [facility] Mean corpuscular hemoglobin (MCH) determinationOrdered By: Caden Cabezas on 06-06-2025 MCH (RBC) [Entitic mass] 29.2 pg 27.0-32.0 [facility] Mean corpuscular hemoglobin concentration (MCHC) determinationOrdered By: Caden Cabezas on 06-06-2025 MCHC (RBC) [Mass/Vol] 34.2 g/dL 32-36 [facility] Mean platelet volume determi nationOrdered By: Caden Cabezas on 06-06-2025 Platelet mean volume (Bld) [Entitic vol] 9.4 fL 6.2-12.0 [facility] Monocyte percentageOrdered B y: Caden Cabezas on 06-06-2025 Monocytes/100 WBC (Bld) 7.7 % 0-10 [facility] Neutrophil percentageOrdered By: Caden Cabezas on 06-06-2025 Neutrophils/100 WBC (Bld) 75.2 % High 47-70 [facility] Nucleated red blood cell per centageOrdered By: Caden Cabezas on 06-06-2025 Nucleated RBC/100 WBC (Bld) [Ratio] 0 % 0-5 [facility] Operative Reporton Operative Report [facility] Medical Records Department [address] [place] [address] Operative Report 06/06/25 1404 MR#: [id number] Acct: [id number] Name: ELIZABETH BABB Rep #: [id number] : 1975 50 From: Riley Swann MD PCP: KENISHA Pham Status:ADM VALERIE Location: [place] WP305-6 Procedures Digestive 40xxx-49xxx: 26586 Incision of rectal abscess Operative Report (Standard) Operative Information Date of Procedure: 06/06/25 Pre-Operative Diagnosis: left side perirectal abscess Post-Operative Diagnosis: Same Surgery/Procedure Performed: Incision and drainage of left sided perirectal abscess seo strategist: No Type of Anesthesia: General and Local [...] 06/06/25 1411 Cosigner Signature (if applicable): CC: PERFORATING MACHINE OPERATOR-C Silvana Ward; Dr. Riley Swann MD Signed Normal [facility] Pelvis WITH IV Contraston Pelvis WITH IV Contrast [facility] Imaging Services [address] [place] [address] Pelvis WITH IV Contrast MR#: [id number] Acct: [id number] Name: ELIZABETH BABB Rep #: [id number] : 1975 F 50 From: Jason Damico MD PCP: KENISHA Pham Status: REG ER Study: Pelvis WITH IV Contrast Date of Exam: 06/06/25 Exam# [id number] Ordering Dr: Cdaen Cabezas DO PROCEDURE: PELVIS WITH IV CONTRAST [...] dimensions above. See above description. Reading Location: [id number] CC: KENISHA Ward; Caden Cabezas DO Pin Sorter And Bagger: Signed Normal [facility] Platelet countOrdered By: Keeley Cabezas on 06-06-2025 Platelets (Bld) [#/Vol] 303 10*3/uL 150-450 [facility] Potassium measurement (mass/ volume)Ordered By: Caden Cabezas on 06-06-2025 Potassium (Unsp spec) [Mass/Vol] 4.6 mmol/L 3.3-5.1 [facility] RBC Auto (Bld) [#/Vol]Ordere d By: Caden Cabezas on 06-06-2025 RBC (Bld) [#/Vol] 4.80 10*6/uL 4.2-5.4 [facility] Serum creatinine measurement (mass/volume)Ordered By: Caden Cabezas on 06-06-2025 Creatinine [Mass/Vol] 0.87 mg/dL 0.70-1.20 [facility] Serum glucose measurement (m ass/volume)Ordered By: Caden Cabezas on 06-06-2025 Glucose [Mass/Vol] 148 mg/dL High 70-99 [facility] Serum or plasma calcium lydia urement (mass/volume)Ordered By: Caden Cabezas on 06-06-2025 Calcium [Mass/Vol] 9.8 mg/dL 7.6-11.0 [facility] Serum or plasma urea nitroge n measurement (mass/volume)Ordered By: Caden Cabezas on 06-06-2025 Urea nitrogen [Mass/Vol] 19 mg/dL 4-19 [facility] Sodium levelOrdered By: Geovanni Cabezas on 06-06-2025 Sodium [Moles/Vol] 137 mmol/L 133-145 [facility] White blood cell (WBC) count Ordered By: Caden Cabezas on 06-06-2025 WBC (Bld) [#/Vol] 11.3 10*3/uL High 4.4-11.0 [facility] Surgery Visit Reporton 06-04 Surgery Visit Report [facility] [address] [place] [address]. [address] [place] [address] OFFICE VISIT Date of Service: 06/04/25 MR#: [id number] Acct: [id number] Name: ELIZABETH BABB Rep #: [id number] : 1975 Provider: Dr. Riley alexandre MD Age/Sex: 50/F Location: [facility] Status: Signed Intake Vital Signs 05/29/25 12:23 [...] Global Post Op Diagnoses Anal fissure K60.2 [facility] Medical History Normal Holter exam Anal [...] surgery for (more content not included)... Normal [facility] SCRN MAMM (CAD)W/KASSIDY BILATo n 06-01-2025 SCRN MAMM (CAD)W/KASSIDY BILAT [facility] Imaging Services [address] [place] [address] SCRN MAMM (CAD)W/KASSIDY BILAT MR#: [id number] Acct: [id number] Name: ELIZABETH BABB Rep #: [id number] : 1975 F 50 From: Meena White MD PCP: K[facility]ISHA [facility] SCRN MAMM (CAD)W/KASSIDY BILAT Date of Exam: 11/21 Exam# [id number] Ordering Dr: Silvana Ward NP PERFORATING MACHINE OPERATOR Tyrell EXAM: SCRN MAMM (CAD)W/KASSIDY BILAT DATE: [...] be mailed to the patient. Reading Location: INN-NHTAVLYN-MT CC: KENISHA Ward Pin Sorter And Bagger: Signed Normal [facility] Bedside Glucoseon 05-29-2025 FINGERSTICK GLU 108 mg/dL High 74-106 [facility] Comment on above: Result Comment: XOCHILT GEMENT OF PATIENT CARE PER NURSING PROTOCOL Performed By: #### L 501.080 #### [facility] Laboratory [address] [place], [address] Discharge Instructionon 05-02 Discharge Instruction [facility] Medical Records Department [address] [place] [address] Instructions for Home/Discharge Instructions 05/29/25 1516 MR#: [id number] Acct: [id number] Name: ELIZABETH BABB Rep #: [id number] : 1975 50 From: Riley Swann MD PCP: Silvana Ward NP-C [place] [facility] [place] Instructions Diet Discharge Diet: Light diet [...] Provider: Silvana Ward NP Instructions Print Language: Stateless Discharge Orders/Prescriptions Prescriptions: New oxycodone 5 mg [...] Referrals / Follow Up: Silvana Ward NP, PERFORATING MACHINE OPERATOR-C [Primary Care Provider, Medical] Disposition Disposition (needs filled in before D/C Order can be placed): Home, Self Care 05/29/25 1516 Riley Swann MD CC: PERFORATING MACHINE OPERATOR-C Silvana Ward Signed Normal [facility] Discharge Instruction [facility] Medical Records Department [address] [place] [address] Instructions for Home/Discharge Instructions 05/29/25 1510 MR#: [id number] Acct: [id number] Name: ELIZABETH BABB Rep #: [id number] : 1975 50 From: Riley Swann MD PCP: KENISHA Pham [place] [facility] [place] Instructions Diet Discharge Diet: Light diet [...] Follow Up Care Please Follow Up With: Riely Swann MD When: 2 weeks. Please call office to schedule appointment Test Results: Test results from this visit will be discussed in further detail at your follow-up appointment, if applicable. Discharge Plan Admission Primary Reason for Your Visit: Anal fissure Attending Provider: Riley Swann Primary Care Provider: Silvana Ward NP Instructions Print Language: Stateless Discharge Orders/Prescriptions Prescriptions: New oxycodone 5 mg [...] Referrals / Follow Up: Silvana Ward NP, PERFORATING MACHINE OPERATOR-C [Primary Care Provider, Medical] Disposition Disposition (needs filled in before D/C Order can be placed): Home, Self Care 05/29/25 1516 Riley Swann MD CC: PERFORATING MACHINE OPERATOR-C Silvana Ward Signed Normal [facility] deOrdered By: Riley Swann on 05-29-2025 Glucose [Mass/Vol] 108 mg/dL High 74-106 [facility] Comment on above: MANAGEMENT OF PATIEN T CARE PER NURSING PROTOCOL MR/POSTOP.ANEon 05-29-2025 MR/POSTOP.[facility] Medical Records Department [address] [place] [address] Anesthesia Postop Eval I 05/29/25 1609 MR#: [id number] Acct: [id number] Name: ELIZABETH BABB Rep #: [id number] : 1975 50 From: Tasia Arriaza CRNA PCP: KENISHA Pham Status:REG SDC Y Race: C Location: [place] [address] Anesthesia: Postop Eval I Current Vital Signs [...] completed: Yes 05/29/25 1610 Date Tasia Sofiya HALL COORDINATOR Cosigner Signature: Date CC: Signed Normal [facility] MR/[id number] 05-29-2025 MR/POSTOPAN2 [facility] Medical Records Department [address] [place] [address] Anesthesia Postop Eval II 05/29/253 MR#: [id number] Acct: [id number] Name: ELIZABETH BABB Rep #: [id number] : 1975 50 From: Max Hall MD PCP: KENISHA Pham Status:[facility] Y Race: C [place] [facility] [place]esthesia Postop Eval I Sum Postop Eval Completion status Anesthesia document: Postop Eval 1 completed: Yes Anesthesia Postop Eval I Summary Anesthesia Postop Eval I Summary: Anesthesia Postop Eval I: Assessment Summary Airway patent Yes 05/29/25 16:10 HALL COORDINATOR.RENEEOBDaquan Spontaneous unlabored Yes 05/29/25 16:10 HALL COORDINATOR.RENEEOBDaquan respirations Mental status Awake,Calm 05/29/25 16:10 HALL COORDINATOR.SKOBY nausea No 05/29/25 16:10 HALL COORDINATOR.SKOBY Vomiting No 05/29/25 16:10 HALL COORDINATOR.SKOBY Anesthesia Postop Eval I: Fluid Summary Crystalloid volume administer 700 05/29/25 16:10 HALL COORDINATOR.SKOBY (ml) Colloids volume administered ( ml) Blood Product volume administered (ml) Total IV fluid infused 700 05/29/25 16:10 HALL COORDINATOR.SKOBY Anesthesia Postop Eval I: Summary Notes Anesthesia Complication No 05/29/25 16:10 HALL COORDINATORDESIRE Anesthesia Complication Comment: Post-operative progress note Anesthesia: Postop Eval II Evaluation Mental status: Awake and Calm Pain Level: 2 nausea: No Vomiting: No Complications Anesthesia Complication: No 05/29/253 Date Max Hall MD Cosigner Signature: Date CC: Signed Normal [facility] Operative Reporton 5 Operative Report [facility] Medical Records Department [address] [place] [address] Operative Report 05/29/25 1516 MR#: [id number] Acct: [id number] Name: ELIZABETH BABB Rep #: [id number] : 1975 50 From: Riley Swann MD PCP: KENISHA Pham Status:[facility] Location: [address] [employer] Digestive Digestive CPT Codes: 37817 Surg dx exam anorectal and 43821 Treatment of anal fissure Endocrine,Ocular,Ner v, Auditory Endocrine,Ocular,Ner v, Auditory CPT Codes: Other Procedure See Report ([id number] bilateral pudendal nerve block) Operative Report (Standard) Operative Information Date of Procedure: 05/29/25 Pre-Operative Diagnosis: Chronic anal fissure Post-Operative Diagnosis: Same Surgery/Procedure Performed: 1. Rectal exam under anesthesia 2. Lateral internal sphincterotomy 3. Bilateral pudendal nerve block seo strategist: No Type of Anesthesia: General and Local [...] KENISHA Ward; Dr. 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 Hx Hospitalization No 05/28/25 08:28 Any Problems [...] take am of surgery PONV 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 Female Yes 05/28/25 08:28 HX of Motion [...] 05/25/25 14:03 Respiratory Assessment Respiratory Assessment - 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: Respiratory Tract Infection Hx - 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 Hx Respiratory Tract Infection No 05/28/25 08:28 STOP Sleep Apnea STOP Sleep Apnea - 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: STOP Sleep Apnea - 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 Hx Hypertension Yes: CONTROLLED WITH MED 05/28/25 [...] Tobacco Use History 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: 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 Tobacco Use Smoking Status Never smoker 05/28/25 08:28 Hx Tobacco Use No 05/28/25 08:28 Years Smoking Packs Smoked per Day Smoking Cessation Date was within the last 15 years Hx Smoking Cessation Date Hx Smoking Cessation Counseling Hematologic Medial History Hematologic Hx - 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: 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 Normal [facility] Surgery Visit Reporton 05-25 Surgery Visit Report [facility] [address] [place] [address] OFFICE VISIT Date of Service: 05/25/25 MR#: [id number] Acct: [id number] Name: ELIZABETH BABB Rep #: [id number] : 1975 Provider: Dr. Riley alexandre MD Age/Sex: 50/F Location: [facility] Status: Signed with Addenda ADDENDUM by ROSANGELA [...] ROM Decrease pain Barriers Repetitive bending/lifting 05/28/25 6565 Date Riley Swann MD cc: * Signed [...] ( 2011) (more content not included)... Normal [facility] Re-Evaluation - PT (1)on Re-Evaluation - PT (1) [facility] Physical Therapy [facility] [address] [place] [address] / REEVALUATION / MEDICARE RECERTIFICATION PHYSICAL THERAPY MR#: [id number] Acct: [id number] Name: ELIZABETH BABB Rep #: [id number] : 1975 50 From: Eddie Garzon DPT Referring Dr.: CELINE Dominguez Status:REG RCR Insurance: [employer]/[facility] SELF PAY INSURANCE Re-Evaluation Intro: CELINE [...] do not hesitate to contact me at [phone] by phone or if you have questions or concerns regarding this new plan of care! Sincerely, Eddie Garzon DPT 05/15/25 1309 CC: KENISHA Ward; CELINE Dominguez CLS Signed For Medicare only, by signing this I certify the plan of care. Physicians Signature Date Normal [facility] Inital Evaluation (1) - PTon 04-24-2025 Inital Evaluation (1) - PT [facility] Physical Therapy [facility] [address] [place] [address] / REHABILITATION SERVICES INITIAL EVALUATION MR#: [id number] Acct: [id number] Name: ELIZABETH BABB Rep #: [id number] : 1975 50 From: Eddie Garzon DPT Referring Dr.: CELINE Dominguez Status: REG RCR Insurance: [employer]/[facility] SELF PAY INSURANCE Patient's Visit Information [...] to 90deg while seated. Pt. works at [employer]. Pt. reports overall doing well, but [...] to be FAXED BACK to us at [phone] for Medicare purposes. For Medicare only, by signing this I certify the plan of care. Please let me know if there are questions or concerns regarding this plan of care. 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, [address] Glucose measurement at [facility] deOrdered By: Jacinto Smith on 04-05-2025 Glucose [Mass/Vol] 136 mg/dL High 74-106 [facility] Comment on above: MANAGEMENT OF PATIEN T CARE PER NURSING PROTOCOL MR/POSTOP.ANEon 04-05-2025 MR/POSTOP.[facility] Medical Records Department [address] [place] [address] Anesthesia Postop Eval I 04/05/25 1150 MR#: [id number] Acct: [id number] Name: ELIZABETH BABB Rep #: [id number] : 1975 50 From: To Fagan CRNA PCP: KENISHA Pham Status:REG SDC Y Race: C Location: [place] [address] Anesthesia: Postop Eval I Current Vital Signs [...] CRNA Cosigner Signature: Date CC: Signed Normal [facility] Operative Reporton 5 Operative Report [facility] Medical Records Department [address] [place] [address] Operative Report 04/05/25 1824 MR#: [id number] Acct: [id number] Name: ELIZABETH BABB Rep #: [id number] : 1975 50 From: Jacinto Smith DO PCP: KENISHA Pham [place] [facility] [facility] [place] Report (Standard) Operative Information Date of Procedure: 04/05/25 Pre-Operative Diagnosis: Left knee medial meniscal root tear Post-Operative Diagnosis: Left knee medial meniscal root tear Surgery/Procedure Performed: Left knee medial meniscal arthroscopic repair seo strategist: Yes Senior Commissions Analyst: Harriet Larry Tasks completed by medical receptionist medical assistant: Opening closing and Implanting device Type [...] pristine. Lateral compartment was entered with a [id number] stress. The lateral compartment was probed and the meniscus was stable without significant tearing noted. I then returned to the medial compartment. I elected to proceed with meniscal root repair. I debrided the footprint of the meniscus and decorticated with a rasp. 2 fiber link sutures were passed through the posterior horn 3-4 mm from the tear margin with a Orange Leapion meniscal suture passer. Sutures were then retrieved out an accessory far medial portal. I then introduced the drill guide for the tibial tunnel. This was placed at the cheesh-na footprint. 2 cm incision was made along [...] stable. Portal sites were closed in interrupted [id number] fashion with 3-0 nylon suture. Bulky sterile compression system was applied. Patient was safely awakened in the operative suite and extubated. A Violetta ANAND (more content not included)... Normal [facility] CNOVon 03-13-2025 [facility] ELIZABETH [facility]ABB ([id number]) 1975 F [facility] Date Time Provider Department 03/13/25 8:20 AM [facility] During your visit today, we recorded the following information about you: Pulse Respiration Blood pressure Weight 69/minute 16/minute 118/82 111.1 kg Silvana Ward, [employer].ANIMAL DAYCARE PROVIDER 03/13/2025 9:16 AM Signed - Increased metformin to 2 tablets by mouth daily; you may take both with breakfast or split between breakfast and dinner if you notice diarrhea. - Refill for lisinopril has been sent to [facility]; pick it up as soon as it?s ready. - Prior authorization has been submitted for Mounjaro (weekly semaglutide) to [facility]; if approved, curing pickling packer the first four starter doses. - Do [...] authorize dose escalation if appropriate. Silvana Ward, [place].ANIMAL DAYCARE PROVIDER 03/13/2025 11:07 AM Signed This is a [...] onset 03/16/21, monoclonal Ab tx per pulmonology [facility] Non morbid obesity 07/15/2016 S/P laparoscopic [...] Failure Ma (more content not included)... Normal [facility] Absolute lymphocyte countOrd ered By: HEALTH ASSESSMENT on 03-09-2025 Lymphocytes Auto (Unsp spec) [#/Vol] 2.23 10*3/uL 0.83-4.51 [facility] Absolute neutrophil countOrd ered By: HEALTH ASSESSMENT on 03-09-2025 Neutrophils (Bld) [#/Vol] 2.9 10*3/uL 2.0-7.7 [facility] Absolute nucleated red blood cell countOrdered By: HEALTH ASSESSMENT on 03-09-2025 Nucleated RBC (Bld) [#/Vol] 0.00 10*3/uL 0-5 [facility] Anion gap in Serum or Plasma Ordered By: HEALTH ASSESSMENT on 03-09-2025 Anion gap [Moles/Vol] 13 mmol/L 5-15 [facility] Automated blood erythrocyte countOrdered By: HEALTH ASSESSMENT on 03-09-2025 RBC (Bld) [#/Vol] 5.17 10*6/uL Normal 4.2-5.4 [facility] Comment on above: Order Comment: SEND TO DR REYES Performed By: #### L 400.0100, L100.0200, L500.2900 ####[facility] [address] [place], [address] Automated blood hematocrit ( percentage)Ordered By: HEALTH ASSESSMENT on 03-09-2025 Hematocrit (Bld) [Volume fraction] 44.1 % Normal 37-47 [facility] Comment on above: Order Comment: SEND TO DR REYES Performed By: #### L 400.0100, L100.0200, L500.2900 ####[facility] [address] [place], [address] BUN/creatinine ratioOrdered By: HEALTH ASSESSMENT on 03-09-2025 Urea nitrogen/Creatinine [Mass ratio] 22.5 mg/mg High 10-20 [facility] Basic Metabolic Profile (BMP )on 03-09-2025 BUN Normal 4-19 [facility] Comment on above: Result Comment: BMP, CBCD ON EMPH LABS. Performed By: #### L 500.2500, L501.9985, L100.0100 ####[facility] [address] [place], [address] BUN/CRE Normal 10-20 [facility] Comment on above: Result Comment: BMP, CBCD ON EMPH LABS. Performed By: #### L 500.2500, L501.9985, L100.0100 ####[facility] [address] [place], [address] Calcium Normal 7.6-11.0 [facility] Comment on above: Result Comment: BMP, CBCD ON EMPH LABS. Performed By: #### L 500.2500, L501.9985, L100.0100 ####[facility] [address] [place], [address] CL Normal 98-108 [facility] Comment on above: Result Comment: BMP, CBCD ON EMPH LABS. Performed By: #### L 500.2500, L501.9985, L100.0100 ####[facility] [address] [place], [address] CO2 Normal 21.0-32.0 [facility] Comment on above: Result Comment: BMP, CBCD ON EMPH LABS. Performed By: #### L 500.2500, L501.9985, L100.0100 ####[facility] [address] [place], [address] CREAT,SERUM Normal 0.70-1.20 [facility] Comment on above: Result Comment: BMP, CBCD ON EMPH LABS. Performed By: #### L 500.2500, L501.9985, L100.0100 ####[facility] [address] [place], [address] eGFR Normal >60 [facility] Comment on above: Result Comment: BMP, CBCD ON EMPH LABS. Performed By: #### L 500.2500, L501.9985, L100.0100 ####[facility] [address] [place], [address] GAP Normal 5-15 [facility] Comment on above: Result Comment: BMP, CBCD ON EMPH LABS. Performed By: #### L 500.2500, L501.9985, L100.0100 ####[facility] [address] [place], [address] GLU Normal 70-99 [facility] Comment on above: Result Comment: BMP, CBCD ON EMPH LABS. Performed By: #### L 500.2500, L501.9985, L100.0100 ####[facility] [address] [place], [address] Potassium Normal 3.3-5.1 [facility] Comment on above: Result Comment: BMP, CBCD ON EMPH LABS. Performed By: #### L 500.2500, L501.9985, L100.0100 ####[facility] [address] [place], [address] Basic Metabolic Profile (BMP) Normal 133-145 [facility] Comment on above: Result Comment: BMP, CBCD ON EMPH LABS. Performed By: #### L 500.2500, L501.9985, L100.0100 ####[facility] [address] [place], [address] Bilirubin Test strip Ql (U)O rdered By: HEALTH ASSESSMENT on 03-09-2025 Bilirubin Ql (U) Negative Negative [facility] Bilirubin directOrdered By: HEALTH ASSESSMENT on 03-09-2025 Bilirubin.direct [Mass/Vol] 0.18 mg/dL 0.00-0.30 [facility] Comment on above: Hemolysis present, R esults could be affected. Bilirubin, totalOrdered By: HEALTH ASSESSMENT on 03-09-2025 Bilirubin [Mass/Vol] 0.64 mg/dL 0.00-1.30 [facility] CBC W/Diff, Automatedon 02-27 Absolute Neut Normal 2.0-7.7 [facility] Comment on above: Result Comment: BMP, CBCD ON EMPH LABS. Performed By: #### L 500.2500, L501.9985, L100.0100 ####[facility] [address] [place], [address] HCT Normal 37-47 [facility] Comment on above: Result Comment: BMP, CBCD ON EMPH LABS. Performed By: #### L 500.2500, L501.9985, L100.0100 ####[facility] [address] [place], [address] HGB Normal 12.0-15.0 [facility] Comment on above: Result Comment: BMP, CBCD ON EMPH LABS. Performed By: #### L 500.2500, L501.9985, L100.0100 ####[facility] [address] [place], [address] MCH Normal 27.0-32.0 [facility] Comment on above: Result Comment: BMP, CBCD ON EMPH LABS. Performed By: #### L 500.2500, L501.9985, L100.0100 ####[facility] [address] [place], [address] MCHC Normal 32-36 [facility] Comment on above: Result Comment: BMP, CBCD ON EMPH LABS. Performed By: #### L 500.2500, L501.9985, L100.0100 ####[facility] [address] [place], [address] MCV Normal 81-99 [facility] Comment on above: Result Comment: BMP, CBCD ON EMPH LABS. Performed By: #### L 500.2500, L501.9985, L100.0100 ####[facility] [address] [place], [address] NEUT% Normal 47-70 [facility] Comment on above: Result Comment: BMP, CBCD ON EMPH LABS. Performed By: #### L 500.2500, L501.9985, L100.0100 ####[facility] [address] [place], [address] PLT Normal 150-450 [facility] Comment on above: Result Comment: BMP, CBCD ON EMPH LABS. Performed By: #### L 500.2500, L501.9985, L100.0100 ####[facility] [address] [place], [address] RBC Normal 4.2-5.4 [facility] Comment on above: Result Comment: BMP, CBCD ON EMPH LABS. Performed By: #### L 500.2500, L501.9985, L100.0100 ####[facility] [address] [place], [address] RDW CV Normal 11.6-14.6 [facility] Comment on above: Result Comment: BMP, CBCD ON EMPH LABS. Performed By: #### L 500.2500, L501.9985, L100.0100 ####[facility] [address] [place], [address] RDW SD Normal 35.1-43.9 [facility] Comment on above: Result Comment: BMP, CBCD ON EMPH LABS. Performed By: #### L 500.2500, L501.9985, L100.0100 ####[facility] [address] [place], [address] WBC Normal 4.4-11.0 [facility] Comment on above: Result Comment: BMP, CBCD ON EMPH LABS. Performed By: #### L 500.2500, L501.9985, L100.0100 ####[facility] [address] [place], [address] CBC, Employeeon 03-09-2025 Absolute Lymph 2.23 X10 3/uL Normal 0.83-4.51 [facility] Comment on above: Order Comment: SEND TO DR REYES Performed By: #### L 400.0100, L100.0200, L500.2900 ####[facility] [address] [place], [address] Absolute Neut 2.9 X10 3/uL Normal 2.0-7.7 [facility] Comment on above: Order Comment: SEND TO DR REYES Performed By: #### L 400.0100, L100.0200, L500.2900 ####[facility] [address] [place], [address] Basophils/100 WBC (Bld) 0.7 % Normal 0-1 [facility] Comment on above: Order Comment: SEND TO DR REYES Performed By: #### L 400.0100, L100.0200, L500.2900 ####[facility] [address] [place], [address] Eosinophils/100 WBC (Bld) 2.7 % Normal 0-5 [facility] Comment on above: Order Comment: SEND TO DR REYES Performed By: #### L 400.0100, L100.0200, L500.2900 ####[facility] [address] [place], [address] Lymphocytes/100 WBC (Bld) 38.1 % Normal 19-41 [facility] Comment on above: Order Comment: SEND TO DR REYES Performed By: #### L 400.0100, L100.0200, L500.2900 ####[facility] [address] [place], [address] Monocytes/100 WBC (Bld) 9.0 % Normal 0-10 [facility] Comment on above: Order Comment: SEND TO DR REYES Performed By: #### L 400.0100, L100.0200, L500.2900 ####[facility] [address] [place], [address] NRBC # 0.00 10 3/uL Normal 0-5 [facility] Comment on above: Order Comment: SEND TO DR REYES Performed By: #### L 400.0100, L100.0200, L500.2900 ####[facility] [address] [place], [address] Nucleated RBC (Bld) [#/Vol] 0 10*3/uL Normal 0-5 [facility] Comment on above: Order Comment: SEND TO DR REYES Performed By: #### L 400.0100, L100.0200, L500.2900 ####[facility] [address] [place], [place], [address] RDW SD 37.6 fl Normal 35.1-43.9 [facility] Comment on above: Order Comment: SEND TO DR REYES Performed By: #### L 400.0100, L100.0200, L500.2900 ####[facility] [address] [place], [address] Calculated very low density lipoprotein (VLDL) cholesterol measurementOrdered By: HEALTH ASSESSMENT on 03-09-2025 Calculated very low density lipoprotein (VLDL) cholesterol measurement 73 mg/dL High 5-40 [facility] Carbon dioxide, total [Moles /volume] in Central venous bloodOrdered By: HEALTH ASSESSMENT on 03-09-2025 CO2 [Moles/Vol] 23.7 mmol/L 21.0-32.0 [facility] Chloride assayOrdered By: HE ALTH ASSESSMENT on 03-09-2025 Chloride [Moles/Vol] 102 mmol/L 98-108 [facility] Employee Profileon Cholesterol in LDL [Mass/Vol] 115 mg/dL Normal 0-130 [facility] Comment on above: Order Comment: SEND TO DR. SMITH.UNK Performed By: #### L 400.0100, L100.0200, L500.2900 ####[facility] [address] [place], [place], [address] Erythrocyte distribution wid th ratioOrdered By: HEALTH ASSESSMENT on 03-09-2025 Erythrocyte distribution width (RBC) [Ratio] 12.2 % Normal 11.6-14.6 [facility] Comment on above: Order Comment: SEND TO DR REYES Performed By: #### L 400.0100, L100.0200, L500.2900 ####[facility] [address] [place], [address] Erythrocyte distribution wid th standard deviationOrdered By: HEALTH ASSESSMENT on 03-09-2025 Erythrocyte distribution width (RBC) [Ratio] 37.6 fl 35.1-43.9 [facility] Glomerular filtration rate ( GFR) estimation/1.73 sq m using serum, plasma, or whole bOrdered By: HEALTH ASSESSMENT on 03-09-2025 GFR/1.73 sq M.predicted among non-blacks MDRD (S/P/Bld) [Vol rate/Area] 92 mL/min/{1.73_m2} >60 [facility] Comment on above: mL/min/1.73m2 CKD-EP I Creatinine Equation (2020) Hemoglobin A1con 03-09-2025 HbA1c (Bld) [Mass fraction] 7.6 % High <=5.6 [facility] Comment on above: Result Comment: Norm al < 5.7 % Prediabetic 5.7 - 6.4 % Diabetic >or= 6.5 % Please note range changes. Performed By: #### L 500.2500, L501.9985, L100.0100 ####[facility] [address] [place], [place], [id number] Hemoglobin A1c percentageOrd ered By: Jacinto Smith on 03-09-2025 HbA1c (Bld) [Mass fraction] 7.6 % High <5.7 [facility] Comment on above: Normal < 5.7 % Predi abetic 5.7 - 6.4 % Diabetic >or= 6.5 % Please note range changes. Hemoglobin measurementOrdere d By: HEALTH ASSESSMENT on 03-09-2025 Hemoglobin (Bld) [Mass/Vol] 15.0 g/dL Normal 12.0-15.0 [facility] Comment on above: Order Comment: SEND TO DR REYES Performed By: #### L 400.0100, L100.0200, L500.2900 ####[facility] [address] [place], [place], [id number] Ketones Test strip Ql (U)Ord ered By: HEALTH ASSESSMENT on 03-09-2025 Ketones Ql (U) Negative Negative [facility] Laboratory - Chemistry and C hemistry - challengeOrdered By: HEALTH ASSESSMENT on 03-09-2025 AST [Catalytic activity/Vol] 49 U/L High <32 [facility] Comment on above: Hemolysis present, R esults could be affected. Lactate dehydrogenase (LDH) measurementOrdered By: HEALTH ASSESSMENT on 03-09-2025 LDH [Catalytic activity/Vol] 223 U/L 84-246 [facility] Comment on above: Hemolysis present, R esults could be affected. MCV (mean corpuscular volume ) determinationOrdered By: HEALTH ASSESSMENT on 03-09-2025 MCV (RBC) [Entitic vol] 85.3 fL Normal 81-99 [facility] Comment on above: Order Comment: SEND TO DR REYES Performed By: #### L 400.0100, L100.0200, L500.2900 ####[facility] [address] [place], [address] Mean corpuscular hemoglobin (MCH) determinationOrdered By: HEALTH ASSESSMENT on 03-09-2025 MCH (RBC) [Entitic mass] 29.0 pg Normal 27.0-32.0 [facility] Comment on above: Order Comment: SEND TO DR REYES Performed By: #### L 400.0100, L100.0200, L500.2900 ####[facility] [address] [place], [place], [address] Mean corpuscular hemoglobin concentration (MCHC) determinationOrdered By: HEALTH ASSESSMENT on 03-09-2025 MCHC (RBC) [Mass/Vol] 34.0 g/dL Normal 32-36 [facility] Comment on above: Order Comment: SEND TO DR REYES Performed By: #### L 400.0100, L100.0200, L500.2900 ####[facility] [address] [place], [address] Mean platelet volume determi nationOrdered By: HEALTH ASSESSMENT on 03-09-2025 Platelet mean volume (Bld) [Entitic vol] 10.1 fL Normal 6.2-12.0 [facility] Comment on above: Order Comment: SEND TO DR REYES Performed By: #### L 400.0100, L100.0200, L500.2900 ####[facility] [address] [place], [place], [address] Neutrophil percentageOrdered By: HEALTH ASSESSMENT on 03-09-2025 Neutrophils/100 WBC (Bld) 49.0 % Normal 47-70 [facility] Comment on above: Order Comment: SEND TO DR REYES Performed By: #### L 400.0100, L100.0200, L500.2900 ####[facility] [address] [place], [address] Nitrite Test strip Ql (U)Ord ered By: HEALTH ASSESSMENT on 03-09-2025 Nitrite Ql (U) Negative Negative [facility] Nucleated red blood cell per centageOrdered By: HEALTH ASSESSMENT on 03-09-2025 Nucleated RBC/100 WBC (Bld) [Ratio] 0 % 0-5 [facility] Platelet countOrdered By: HE ALTH ASSESSMENT on 03-09-2025 Platelets (Bld) [#/Vol] 243 10*3/uL Normal 150-450 [facility] Comment on above: Order Comment: SEND TO DR REYES Performed By: #### L 400.0100, L100.0200, L500.2900 ####[facility] [address] [place], [address] Potassium measurement (mass/ volume)Ordered By: HEALTH ASSESSMENT on 03-09-2025 Potassium (Unsp spec) [Mass/Vol] 4.5 mmol/L 3.3-5.1 [facility] Comment on above: Hemolysis present, R esults could be affected. Protein Test strip Ql (U)Ord ered By: HEALTH ASSESSMENT on 03-09-2025 Protein Ql (U) Negative Negative [facility] Screening total cholesterol/ high density lipoprotein (HDL) cholesterol ratioOrdered By: HEALTH ASSESSMENT on 03-09-2025 Cholesterol.total/Choles terol in HDL [Mass ratio] 5.78 {ratio} [facility] Serum creatinine measurement (mass/volume)Ordered By: HEALTH ASSESSMENT on 03-09-2025 Creatinine [Mass/Vol] 0.79 mg/dL 0.70-1.20 [facility] Serum globulin measurementOr dered By: HEALTH ASSESSMENT on 07-11-2025 Globulin (S) [Mass/Vol] 2.9 g/dL 2.2-4.2 [facility] Serum glucose measurement (m ass/volume)Ordered By: HEALTH ASSESSMENT on 03-09-2025 Glucose [Mass/Vol] 162 mg/dL High 70-99 [facility] Serum or plasma alanine soares otransferase (ALT) measurementOrdered By: HEALTH ASSESSMENT on 03-09-2025 ALT [Catalytic activity/Vol] 56 U/L High <35 [facility] Serum or plasma albumin lydia urement (mass/volume)Ordered By: HEALTH ASSESSMENT on 03-09-2025 Albumin [Mass/Vol] 4.4 g/dL 3.5-5.0 [facility] Serum or plasma albumin/glob ulin mass ratioOrdered By: HEALTH ASSESSMENT on 03-09-2025 Albumin/Globulin [Mass ratio] 1.5 {ratio} 0.9-2.4 [facility] Serum or plasma alkaline maximiliano sphatase measurementOrdered By: HEALTH ASSESSMENT on 03-09-2025 ALP [Catalytic activity/Vol] 72 U/L 35-104 [facility] Serum or plasma calcium lydia urement (mass/volume)Ordered By: HEALTH ASSESSMENT on 03-09-2025 Calcium [Mass/Vol] 10.1 mg/dL 7.6-11.0 [facility] Serum or plasma cholesterol in HDL measurement (mass/volume)Ordered By: HEALTH ASSESSMENT on 03-09-2025 Cholesterol in HDL [Mass/Vol] 39 mg/dL Low >40 [facility] Comment on above: National Cholesterol Education Program (NCEP) guidelines:<40 mg/dL: Low HDL-cholesterol (major risk factor for CHD)>= 60 mg/dL: High HDL-cholesterol (negative risk factor for CHD)HDL-cholesterol is affected by a number of factors, e.g. smoking, exercise, hormones, sex and age. Serum or plasma cholesterol in LDL measurement (mass/volume)Ordered By: HEALTH ASSESSMENT on 03-09-2025 Cholesterol in LDL [Mass/Vol] 115 mg/dL 0-130 [facility] Serum or plasma cholesterol measurement (mass/volume)Ordered By: HEALTH ASSESSMENT on 03-09-2025 Cholesterol [Mass/Vol] 227 mg/dL High <201 [facility] Comment on above: Cholesterol level, D esirable <200 mg/dLBorderline high cholesterol 200-239 mg/dLHigh cholesterol >=240 mg/dLRecommendations of the NCEP Adult Treatment Panel for the following risk-cutoff thresholds for the [place] population. Serum or plasma urea nitroge n measurement (mass/volume)Ordered By: HEALTH ASSESSMENT on 03-09-2025 Urea nitrogen [Mass/Vol] 18 mg/dL 4-19 [facility] Serum or plasma uric acid me asurement (mass/volume)Ordered By: HEALTH ASSESSMENT on 03-09-2025 Urate [Mass/Vol] 6.8 mg/dL High 2.6-6.0 [facility] Comment on above: The drugs N-Acetylcy steine and Metamizole may falsely depress this assay. Sodium levelOrdered By: [facility] ASSESSMENT on 03-09-2025 Sodium [Moles/Vol] 139 mmol/L 133-145 [facility] Total proteinOrdered By: [facility] ASSESSMENT on 03-09-2025 Protein [Mass/Vol] 7.3 g/dL 5.9-8.4 [facility] Triglycerides measurementOrd ered By: HEALTH ASSESSMENT on 03-09-2025 Triglyceride [Mass/Vol] 367 mg/dL High <199 [facility] Comment on above: The drugs N-Acetylcy steine and Metamizole may falsely depress this assay. Normal range: <150 mg/dLBorderline High: 150-199 mg/dLHigh: 200-499 mg/dLVery High: >500 mg/dL Urinalysis, Employeeon 03-09 BILIRUBIN URINE Negative Normal Negative [facility] Comment on above: Order Comment: UNKNitesh ine, Random Performed By: #### L 400.0100, L100.0200, L500.2900 ####[facility] [address] [place], [place], [id number] Clarity (U) Clear Normal Clear [facility] Comment on above: Order Comment: UNKUr ine, Random Performed By: #### L 400.0100, L100.0200, L500.2900 ####[facility] [address] [place], [address] Color (U) Straw Normal Yellow [facility] Comment on above: Order Comment: UNKUr ine, Random Performed By: #### L 400.0100, L100.0200, L500.2900 ####[facility] [address] [place], [address] GLUCOSE, UR Normal Normal Normal [facility] Comment on above: Order Comment: UNKUr ine, Random Performed By: #### L 400.0100, L100.0200, L500.2900 ####[facility] [address] [place], [address] KETONE UR Negative Normal Negative [facility] Comment on above: Order Comment: UNKUr ine, Random Performed By: #### L 400.0100, L100.0200, L500.2900 ####[facility] [address] [place], [address] LEUK ESTERASE Negative Normal Negative [facility] Comment on above: Order Comment: UNKUr ine, Random Performed By: #### L 400.0100, L100.0200, L500.2900 ####[facility] [address] [place], [address] Nitrite Ql (U) Negative Normal Negative [facility] Comment on above: Order Comment: UNKUr ine, Random Performed By: #### L 400.0100, L100.0200, L500.2900 ####[facility] [address] [place], [address] OCCULT BLOOD-UR Negative Normal Negative [facility] Comment on above: Order Comment: UNKUr ine, Random Performed By: #### L 400.0100, L100.0200, L500.2900 ####[facility] [address] [place], [address] pH UR 6.5 Normal 5.0 - 8.0 [facility] Comment on above: Order Comment: UNKUr ine, Random Performed By: #### L 400.0100, L100.0200, L500.2900 ####[facility] [address] [place], [address] PROT DIPSTX Negative Normal Negative [facility] Comment on above: Order Comment: UNKUr ine, Random Performed By: #### L 400.0100, L100.0200, L500.2900 ####[facility] [address] [place], [address] SP.GR. DIPSTX 1.020 Normal 1.002-1.030 [facility] Comment on above: Order Comment: UNKUr ine, Random Performed By: #### L 400.0100, L100.0200, L500.2900 ####[facility] [address] [place], [address] UROBILI Normal Normal Normal [facility] Comment on above: Order Comment: UNKUr ine, Random Performed By: #### L 400.0100, L100.0200, L500.2900 ####[facility] [address] [place], [place], [address] Urine clarityOrdered By: [facility] ASSESSMENT on 03-09-2025 Clarity (U) Clear Clear [facility] Urine color determinationOrd ered By: HEALTH ASSESSMENT on 03-09-2025 Color (U) Straw Yellow [facility] Urine glucose detectionOrder ed By: HEALTH ASSESSMENT on 03-09-2025 Glucose Ql (U) Normal mg/dl Normal [facility] Urine leukocyte esterase det ection by dipstickOrdered By: HEALTH ASSESSMENT on 03-09-2025 Leukocyte esterase Test strip Ql (U) Negative Negative [facility] Urine pHOrdered By: HEALTH A SSESSMENT on 03-09-2025 pH (U) 6.5 [pH] 5.0 - 8.0 [facility] Urine specific gravity measu rementOrdered By: HEALTH ASSESSMENT on 03-09-2025 Specific gravity (U) [Rel density] 1.020 1.002-1.030 [facility] Urine urobilinogen measureme ntOrdered By: HEALTH ASSESSMENT on 03-09-2025 Urobilinogen Ql (U) Normal mg/dl Normal [facility] White blood cell (WBC) count Ordered By: HEALTH ASSESSMENT on 03-09-2025 WBC (Bld) [#/Vol] 5.9 10*3/uL Normal 4.4-11.0 [facility] Comment on above: Order Comment: SEND TO DR REYES Performed By: #### L 400.0100, L100.0200, L500.2900 ####[facility] [address] [place], [place], [address] MR/Jori 03-07-2025 MR/SERGIO.LIBBY [facility] Medical Records Department [address] [place] [address] PAT - Anesthesia 03/07/25 0859 MR#: [id number] Acct: [id number] Name: ELIZABETH BABB Rep #: [id number] : 1975 49 From: Pasquale Lo MD PCP: KENISHA Pham [place] [facility] [place] C [place] [facility] [place]Assessment Diagnosis/Proposed Procedure Planned Operative Procedure(s): (L) LEFT KNEE ARTHROSCOPIC MEDIAL MENISCAL ROOT REPAIR 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 Hx Hospitalization No 03/07/25 08:28 Any Problems [...] take am of surgery PONV 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 Female Yes 03/07/25 08:28 HX of Motion [...] 12/22/24 14:13 Respiratory Assessment Respiratory Assessment - 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: Respiratory Tract Infection Hx - 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 Hx Respiratory Tract Infection No 03/07/25 08:28 STOP Sleep Apnea STOP Sleep Apnea - 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: STOP Sleep Apnea - 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 Hx Hypertension Yes: CONTROLLED WITH MED 03/07/25 [...] Tobacco Use History 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: 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 Tobacco Use Smoking Status Never smoker 03/07/25 08:28 Hx Tobacco Use No 03/07/25 08:28 Years Smoking Packs Smoked per Day Smoking Cessation Date was within the last 15 years Hx Smoking Cessation Date Hx Smoking Cessation Counseling Hematologic Medial History Hematologic Hx - 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 Normal [facility] Surgery Visit Reporton 12-22 Surgery Visit Report [facility] [address] [place] [address] [address] [place] [address] OFFICE VISIT Date of Service: 12/22/24 MR#: [id number] Acct: [id number] Name: ELIZABETH BABB Rep #: [id number] : 1975 Provider: Dr. Riley alexandre MD Age/Sex: 49/F Location: [facility] Status: Signed Intake Vital Signs 10/26/24 09:21 [...] ory hydrocortisone acetate 25 mg 25 mg GA BID #12 ea 11/03/2412/22 Rx rectal suppository Diltiazem 2% / Lidocaine 5% #1 ea 11/09/24 12/22/24 Rx ointment (compound) (Diltiazem 2%/Lidocaine 5% ointment (compound)) Hydrocortisone 2.5%/lidocaine 5% #42 ea 11/10/24 12/22/24 Rx suppository (cmpd) [facility] Medical History (Updated 12/22/24 @ 17:31 by [...] heat intol (more content not included)... 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 [facility] Medical History (Updated 12/16/24 @ 12:58 by [...] movement Auscu (more content not included)... Normal [facility] Urgent Care Visit Reporton 0 11-26-2024 Urgent Care Visit Report [facility] [address], [address] [place] [address] OFFICE VISIT Date of Service: 11/26/24 MR#: [id number] Acct: [id number] Name: ELIZABETH BABB Rep #: [id number] : 1975 Provider: KENISHA blevins Age/Sex: 49/F Location[place] [facility] Status: Signed Intake Vital Signs 10/26/24 09:21 [...] Antibiotics) Allergy (Verified 10/26/24 09:22) Hives, welts [facility] Medical History (Updated 11/26/24 @ 11:07 by Keenan Tellez 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 Normal [facility] Gastroenterology Visit Repor ton 11-09-2024 Gastroenterology Visit Report [facility] [address] [place] [address] OFFICE VISIT Date of Service: 11/09/24 MR#: [id number] Acct: [id number] Name: ELIZABETH BABB Rep #: [id number] : 1975 Provider: Gus Wen DO Age/Sex: 49/F [place] [facility] Status: Signed Intake Vital Signs 07/18/24 13:23 [...] ory hydrocortisone acetate 25 mg 25 mg GA BID #12 ea 11/03/2411/09 Rx rectal suppository Diltiazem 2% / Lidocaine 5% #1 ea 11/09/24 11/09/24 Rx ointment (compound) (Diltiazem 2%/Lidocaine 5% ointment (compound)) hydrocortisone 2.5 % topical cream 1 applic GA QD-BID PRN hemorrhoi ds 11/09/24 11/09/24 Rx with perineal applicator #30 grams [facility] Medical History (Updated 11/09/24 @ 13:34 by [...] flatus, incontinent (more content not included)... 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 Thank you for the referral of this patient. Sincerely, RAS Rasmussen/Tripp, T 11/01/24 0714 CC: KENISHA Ward; Dr. Marty Gil MD MK Signed Normal [facility] Plastic Surgery Visit Report on 10-26-2024 Plastic Surgery Visit Report [facility] Plastic Reconstructive Surgery [address], [address] [place] [address] OFFICE VISIT Date of Service: 10/26/24 MR#: [id number] Acct: [id number] Name: ELIZABETH BABB Rep #: [id number] : 1975 Provider: KENISHA jacinto Age/Sex: 49/F Location[place] [facility] Status: Signed Intake Vital Signs 07/18/24 [...] Note: pt here for laser on chin [facility] Medical History (Updated 07/18/24 @ 14:26 by Desiree Lau 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 Normal [facility] Lower Ext Joint Only (Routin e)on 10-19-2024 Lower Ext Joint Only (Routine) [facility] Imaging Services [address] [place] [address] Lower Ext Joint Only (Routine) MR#: [id number] Acct: [id number] Name: ELIZABETH BABB Rep #: [id number] : 1975 F 49 From: Mynor Kirkpatrick PCP: KENISHA Pham Status: REG CLI Study: Lower Ext Joint Only (Routine) Date of Exam: 0 10/19/24 Exam# [id number] Ordering Dr: Jacinto Smith DO PROCEDURE: MRI [...] CC: KENISHA Ward; Dr. Jacinto Smith DO Pin Sorter And Bagger: Signed Normal [facility] Gastroenterology Visit Repor ton 07-26-2024 Gastroenterology Visit Report [facility] Gastroenterology [address] [place] [address] OFFICE VISIT Date of Service: 07/26/24 MR#: [id number] Acct: [id number] Name: ELIZABETH BABB Rep #: [id number] : 1975 Provider: Gus Wen DO Age/Sex: 49/F [place] [facility] Status: Signed Intake Vital Signs 02/11/24 11:00 07/18/24 13:23 Height 5 ft 6 in 5 ft 6 in Intake Visit Reasons: 3 M FU 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 Normal [facility] Plastic Surgery Visit Report on 07-18-2024 Plastic Surgery Visit Report [facility] Plastic Reconstructive Surgery [address], [address] [place] [address] OFFICE VISIT Date of Service: 07/18/24 MR#: [id number] Acct: [id number] Name: ELIZABETH BABB Rep #: [id number] : 1975 Provider: KENISHA jacinto Age/Sex: 49/F Location: [facility] Status: Signed Intake Vital Signs 02/11/24 11:00 [...] here for laser consult on chin area [facility] Medical History (Updated 07/18/24 @ 14:26 by Desiree Lau PERFORATING MACHINE OPERATOR, PERFORATING MACHINE OPERATOR-C) Effusion, left knee Diabetes Fatty liver Restless [...] She d (more content not included)... Normal [facility] CBCDIF (EXTERNAL)on 04-04-20 24 Basophils/100 WBC (Bld) 0.9 % 0 - 1.5 % [facility] Eosinophils/100 WBC (Bld) 3.1 % Abnormal 1 - 3 % [facility] Erythrocyte distribution width (RBC) [Ratio] 12.2 % 11.7 - 15.0 % [facility] Hematocrit (Bld) [Volume fraction] 43.0 % 39 - 55 % [facility] Hemoglobin (Bld) [Mass/Vol] 14.6 g/dL 14 - 16.5 g/dL [facility] Lymphocytes (Bld) [#/Vol] 1.51 10*3/uL 1.2 - 4 K/uL [facility] Lymphocytes/100 WBC (Bld) 32.9 % Abnormal 20 - 30 % [facility] MCH (RBC) [Entitic mass] 29.3 pg 25. 4 - 34.6 pg [facility] MCHC (RBC) [Mass/Vol] 34.0 g/dL 30 - 36 g/dL [facility] MCV (RBC) [Entitic vol] 86.3 fL 79 - 98 fL [facility] Monocytes/100 WBC (Bld) 9.8 % Abnormal 2 - 8 % [facility] NEUT ABS 2.4 K/uL 1.9 - 8 K/uL [facility] Neutrophils/100 WBC (Bld) 52.9 % 40 - 74 % [facility] Platelet mean volume (Bld) [Entitic vol] 9.9 fL 7.4 - 10.4 fL [facility] Platelets (Bld) [#/Vol] 244 10*3/uL 140 - 440 K/uL [facility] RBC (Bld) [#/Vol] 4.98 10*6/uL [facility] RDW-SD 38.3 fl 35.1 - 43.9 fl [facility] WBC (Bld) [#/Vol] 4.6 10*3/uL 3.9 - 11 K/uL [facility] CMP (EXTERNAL)on 04-04-2024 Albumin [Mass/Vol] 3.8 g/dL [facility] Alk Phos Total 67 U/L 45 - 117 U/L [facility] ALT [Catalytic activity/Vol] 64 U/L 12 - 78 U/L [facility] AST [Catalytic activity/Vol] 53 U/L Abnormal 8 - 37 U/L [facility] Bili Total 1.10 mg/dL Abnormal 0.2 - 1 mg/dL [facility] Calcium [Mass/Vol] 9.5 mg/dL 8.5 - 10. 1 mg/dL [facility] Chloride [Moles/Vol] 105 mmol/L [facility] CO2 [Moles/Vol] 27.0 mmol/L [facility] Creatinine [Mass/Vol] 0.82 mg/dL [facility] GFR 78 mL/MIN [facility] GFR AFR AMER 95 mL/MIN [facility] Glucose [Mass/Vol] 140 mg/dL Abnormal [facility] Potassium [Moles/Vol] 4.0 mmol/L 3.5 - 5.1 mmol/L [facility] Protein [Mass/Vol] 7.4 g/dL [facility] Sodium [Moles/Vol] 138 mmol/L 136 - 145 mmol/L [facility] Urea nitrogen [Mass/Vol] 18 mg/dL [facility] LIPID PANEL (EXTERNAL)on Cholesterol [Mass/Vol] 209 mg/dL Abnormal [facility] HDC-L 40 mg/dL - 41 mg/dL [facility] LDL Chol, calculated 119 [facility] Triglyceride [Mass/Vol] 248 mg/dL Abnormal - 149 mg/dL [facility] No Panel Informationon 04-04 Interpretation and review of laboratory results Abnormal [facility] Basophil percentageOrdered B y: Mena Duggan on 11-30-2023 Chloride [Moles/Vol] 106 mmol/L 98-107 [facility] Glucose [Mass/Vol] 140 mg/dL 74-106 [facility] Comment on above: Fasting Glucose resu lt greater than or equal to 126 mg/dL suggests DIABETES MELLITUS per A.D.A. criteria. Hemoglobin (Bld) [Mass/Vol] 14.5 g/dL 12.0-15.0 [facility] Potassium [Moles/Vol] 4.0 mmol/L 3.5-5.1 [facility] Sodium [Moles/Vol] 137 mmol/L 136-145 [facility] WBC (Bld) [#/Vol] 6.5 10*3/uL 4.4-11.0 [facility] Determination of erythrocyte mean corpuscular volume (MCV)Ordered By: Mena Duggan on 11-30-2023 MCV (RBC) [Entitic vol] 85.9 fL 81-99 [facility] Erythrocyte distribution wid th ratioOrdered By: Mena Duggan on 11-30-2023 Erythrocyte distribution width (RBC) [Ratio] 12.1 % 11.6-14.6 [facility] Erythrocyte distribution wid th standard deviationOrdered By: Mena Duggan on 11-30-2023 Erythrocyte distribution width (RBC) [Entitic vol] 37.4 fL 35.1-43.9 [facility] Hematocrit Auto (Bld) [Volum e fraction]Ordered By: Mena Duggan on 11-30-2023 Hematocrit (Bld) [Volume fraction] 42.2 % 37-47 [facility] Laboratory - Chemistry and C hemistry - challengeOrdered By: Mena Duggan on 11-30-2023 CO2 [Moles/Vol] 26.0 mmol/L 21.0-32.0 [facility] Urea nitrogen/Creatinine [Mass ratio] 23.5 mg/mg 10-20 [facility] Laboratory - Hematology and Cell countsOrdered By: Mena Duggan on 11-30-2023 MCH (RBC) [Entitic mass] 29.5 pg 27.0-32.0 [facility] MCHC (RBC) [Mass/Vol] 34.4 g/dL 32-36 [facility] Platelet mean volume (Bld) [Entitic vol] 10.1 fL 6.2-12.0 [facility] Platelets (Bld) [#/Vol] 235 10*3/uL 150-450 [facility] No Panel InformationOrdered By: Mena Duggan on 11-30-2023 Estimated GFR (MDRD) Amer 111 mL/min >60 [facility] Comment on above: GFR Calc Estimated GFR (MDRD) Non-Af Amer 91 mL/min >60 [facility] Comment on above: Non- GFR Calc RBC Auto (Bld) [#/Vol]Ordere d By: Mena Duggan on 11-30-2023 RBC (Bld) [#/Vol] 4.91 10*6/uL 4.2-5.4 [facility] Serum or plasma calcium lydia urement (mass/volume)Ordered By: Mena Duggan on 11-30-2023 Calcium [Mass/Vol] 9.5 mg/dL 8.5-10.1 [facility] Serum or plasma creatinine m easurement (mass/volume)Ordered By: Mena Duggan on 11-30-2023 Creatinine [Mass/Vol] 0.72 mg/dL 0.55-1.02 [facility] Comment on above: The validity of the calculated GFR & GFRAA in patients over 70 years has not been determined. Clinical correlation is essential. Serum or plasma urea nitroge n measurement (mass/volume)Ordered By: Mena Duggan on 11-30-2023 Urea nitrogen [Mass/Vol] 17 mg/dL 7-18 [facility] Thin prep Papanicolaou smear with manual screeningOrdered By: Mena Duggan on 11-30-2023 Thin prep Papanicolaou smear with manual screening 5 5-15 [facility] Culture, urineOrdered By: Theo Duggan on 11-25-2023 Bacteria identified Cx Nom (U) Positive [facility] Basophil percentageOrdered B y: Silvana Ward on 09-24-2023 Basophil percentage 0-5 SEEN /hpf 0-5 [facility] Bilirubin Test strip Ql (U)O rdered By: Silvana Ward on 09-24-2023 Bilirubin Ql (U) 1 mg/dL Negative [facility] Comment on above: COLOR OF URINE MAY A FFECT DIPSTICK RESULTS. Culture, urineOrdered By: Cely Ward on 09-24-2023 Bacteria identified Cx Nom (U) Positive [facility] Bacteria identified Cx Nom (U) Positive [facility] Ketones Test strip Ql (U)Ord ered By: Silvana Ward on 09-24-2023 Ketones Ql (U) 5 mg/dl Negative [facility] Mucus LM Ql (Urine sed)Order ed By: Silvana Ward on 09-24-2023 Mucus Ql (Urine sed) RARE /hpf [facility] Nitrite Test strip Ql (U)Ord ered By: Silvana Ward on 09-24-2023 Nitrite Ql (U) Negative Negative [facility] No Panel InformationOrdered By: Silvana Ward on 09-24-2023 Urine RBC 25-50 SEEN /hpf 0-5 [facility] Protein Test strip Ql (U)Ord ered By: Silvana Ward on 09-24-2023 Protein Ql (U) 30 mg/dl Negative [facility] Squamous epithelial cells de tection in urine sediment by light microscopyOrdered By: Silvana Ward on 09-24-2023 Epithelial cells.squamous LM Ql (Urine sed) 0-5 SEEN /hpf 5-10 [facility] Urine blood detectionOrdered By: Silvana Ward on 09-24-2023 RBC Ql (U) 250 /ul Negative [facility] Urine clarityOrdered By: Jenna Ward on 09-24-2023 Clarity (U) Clear Clear [facility] Urine color determinationOrd ered By: Silvana Ward on 09-24-2023 Color (U) Yellow Yellow [facility] [facility] Urine glucose detectionOrder ed By: Silvana Ward on 09-24-2023 Glucose Ql (U) Normal mg/dl Normal [facility] Urine leukocyte esterase det ection by dipstickOrdered By: Silvana Ward on 09-24-2023 Leukocyte esterase Test strip Ql (U) 25 /ul Negative [facility] Urine pHOrdered By: Silvana Ward on 09-24-2023 pH (U) 5.0 [pH] 5.0 - 8.0 [facility] Urine sediment bacteria coun t by microscopy (number/high power field)Ordered By: Silvana Ward on 09-24-2023 Bacteria LM.HPF (Urine sed) [#/Area] RARE /hpf None Seen [facility] Urine specific gravity measu rementOrdered By: Silvana Ward on 09-24-2023 Specific gravity (U) [Rel density] 1.025 1.002-1.030 [facility] Urine urobilinogen measureme ntOrdered By: Silvana Ward on 09-24-2023 Urobilinogen Ql (U) Normal mg/dl Normal [facility] Absolute lymphocyte countOrd ered By: Silvana Ward on 08-03-2023 Lymphocytes Auto (Unsp spec) [#/Vol] 2.79 10*3/uL 0.83-4.51 [facility] Basophil percentageOrdered B y: Silvana Ward on 08-03-2023 Basophil percentage 0-5 SEEN /hpf 0-5 [facility] Basophils/100 WBC (Bld) 0.8 % 0-1 [facility] Chloride [Moles/Vol] 104 mmol/L 98-107 [facility] Eosinophils/100 WBC (Bld) 2.3 % 0-5 [facility] Glucose [Mass/Vol] 108 mg/dL 74-106 [facility] Comment on above: Fasting Glucose resu lt from 100 to 125 mg/dL suggests IMPAIRED HOMEOSTASIS per A.D.A. criteria. Neutrophils (Bld) [#/Vol] 4.2 10*3/uL 2.0-7.7 [facility] Neutrophils/100 WBC (Bld) 53.1 % 47-70 [facility] Potassium [Moles/Vol] 4.2 mmol/L 3.5-5.1 [facility] Sodium [Moles/Vol] 135 mmol/L 136-145 [facility] WBC (Bld) [#/Vol] 7.9 10*3/uL 4.4-11.0 [facility] Bilirubin Test strip Ql (U)O rdered By: Silvana Ward on 08-03-2023 Bilirubin Ql (U) Negative Negative [facility] Blood erythrocytes count (nu mber/volume)Ordered By: Silvana Ward on 08-03-2023 RBC (Bld) [#/Vol] 5.00 10*6/uL 4.2-5.4 [facility] Blood hemoglobin measurement (mass/volume)Ordered By: Silvana Ward on 08-03-2023 Hemoglobin (Bld) [Mass/Vol] 15.1 g/dL 12.0-15.0 [facility] Blood lymphocytes/100 leukoc ytesOrdered By: Silvana Ward on 08-03-2023 Lymphocytes/100 WBC (Bld) 35.1 % 19-41 [facility] Blood monocytes/100 leukocyt esOrdered By: Silvana Ward on 08-03-2023 Monocytes/100 WBC (Bld) 8.2 % 0-10 [facility] Blood platelet mean volumeOr dered By: Silvana Ward on 08-03-2023 Platelet mean volume (Bld) [Entitic vol] 10.5 fL 6.2-12.0 [facility] Culture, urineOrdered By: Cely Ward on 08-03-2023 Bacteria identified Cx Nom (U) Culture exhibits no growth. [facility] Bacteria identified Cx Nom (U) Culture exhibits no growth. [facility] Determination of erythrocyte mean corpuscular volume (MCV)Ordered By: Silvana Ward on 08-03-2023 MCV (RBC) [Entitic vol] 88.4 fL 81-99 [facility] Hematocrit Auto (Bld) [Volum e fraction]Ordered By: Silvana Ward on 08-03-2023 Hematocrit (Bld) [Volume fraction] 44.2 % 37-47 [facility] Ketones Test strip Ql (U)Ord ered By: Silvana Ward on 08-03-2023 Ketones Ql (U) Negative Negative [facility] Laboratory - Chemistry and C hemistry - challengeOrdered By: Silvana Ward on 08-03-2023 CO2 [Moles/Vol] 26.0 mmol/L 21.0-32.0 [facility] Urea nitrogen/Creatinine [Mass ratio] 22.2 mg/mg 10-20 [facility] Laboratory - Hematology and Cell countsOrdered By: Silvana Ward on 08-03-2023 Erythrocyte distribution width (RBC) [Entitic vol] 38.5 fL 35.1-43.9 [facility] Erythrocyte distribution width (RBC) [Ratio] 12.0 % 11.6-14.6 [facility] Immature granulocytes/100 WBC (Bld) 0.500 % 0.0-0.9 [facility] Comment on above: IG% - Immature Granu locytes (promyelocytes, myelocytes and metamyelocytes) > 1% indicates that a LEFT SHIFT is Present. MCH (RBC) [Entitic mass] 30.2 pg 27.0-32.0 [facility] Nucleated RBC/100 WBC (Bld) [Ratio] 0 % 0-5 [facility] MCHC Auto (RBC) [Mass/Vol]Or dered By: Silvana Ward on 08-03-2023 MCHC (RBC) [Mass/Vol] 34.2 g/dL 32-36 [facility] Mucus LM Ql (Urine sed)Order ed By: Silvana Ward on 08-03-2023 Mucus Ql (Urine sed) 0 SEEN /hpf [facility] Nitrite Test strip Ql (U)Ord ered By: Silvana Ward on 08-03-2023 Nitrite Ql (U) Negative Negative [facility] No Panel InformationOrdered By: Silvana Ward on 08-03-2023 Estimated GFR (MDRD) Amer 103 mL/min >60 [facility] Comment on above: GFR Calc Estimated GFR (MDRD) Non-Af Amer 85 mL/min >60 [facility] Comment on above: Non- GFR Calc Platelets bldOrdered By: Jenna Ward on 08-03-2023 Platelets (Bld) [#/Vol] 311 10*3/uL 150-450 [facility] Protein Test strip Ql (U)Ord ered By: Silvana Ward on 08-03-2023 Protein Ql (U) 30 mg/dl Negative [facility] Serum or plasma calcium lydia urement (mass/volume)Ordered By: Silvana Ward on 08-03-2023 Calcium [Mass/Vol] 9.4 mg/dL 8.5-10.1 [facility] Serum or plasma creatinine m easurement (mass/volume)Ordered By: Silvana Ward on 08-03-2023 Creatinine [Mass/Vol] 0.77 mg/dL 0.55-1.02 [facility] Comment on above: The validity of the calculated GFR & GFRAA in patients over 70 years has not been determined. Clinical correlation is essential. Serum or plasma urea nitroge n measurement (mass/volume)Ordered By: Silvaan Ward on 08-03-2023 Urea nitrogen [Mass/Vol] 17 mg/dL 7-18 [facility] Squamous epithelial cells de tection in urine sediment by light microscopyOrdered By: Silvana Ward on 08-03-2023 Epithelial cells.squamous LM Ql (Urine sed) 0-5 SEEN /hpf 5-10 [facility] Thin prep Papanicolaou smear with manual screeningOrdered By: Silvana Ward on 08-03-2023 Thin prep Papanicolaou smear with manual screening 5 5-15 [facility] Urine blood detectionOrdered By: Silvana Ward on 08-03-2023 RBC Ql (U) 250 /ul Negative [facility] RBC Ql (U) > 100 SEEN /hpf 0-5 [facility] Urine clarityOrdered By: Jenna Ward on 08-03-2023 Clarity (U) Clear Clear [facility] Urine color determinationOrd ered By: Silvana Ward on 08-03-2023 Color (U) Yellow Yellow [facility] Urine glucose detectionOrder ed By: Silvana Ward on 08-03-2023 Glucose Ql (U) Normal mg/dl Normal [facility] Urine leukocyte esterase det ection by dipstickOrdered By: Silvana Ward on 08-03-2023 Leukocyte esterase Test strip Ql (U) 25 /ul Negative [facility] Urine pHOrdered By: Silvana Ward on 08-03-2023 pH (U) 5.0 [pH] 5.0 - 8.0 [facility] Urine sediment bacteria coun t by microscopy (number/high power field)Ordered By: Silvana Ward on 08-03-2023 Bacteria LM.HPF (Urine sed) [#/Area] 0 /[HPF] None Seen [facility] Urine specific gravity measu rementOrdered By: Silvana Ward on 08-03-2023 Specific gravity (U) [Rel density] 1.020 1.002-1.030 [facility] Urobilinogen Auto test strip Ql (U)Ordered By: Silvana Ward on 08-03-2023 Urobilinogen Ql (U) Normal mg/dl Normal [facility] UA DIP, URINE (POC)on 2022 BILIRUBIN UA (POCT) Negative Negative [facility] CLARITY UA (POCT) Cloudy [facility] COLOR UA (POCT) Eli [facility] GLUCOSE UA (POCT) Negative Negative mg/dL [facility] Hemoglobin Ql (U) Large Abnormal Negative [facility] KETONE UA (POCT) Negative Negative mg/dL [facility] LEUKOCYTES UA (POCT) Negative Negative [facility] NITRITE UA (POCT) Negative Negative [facility] PH UA (POCT) 6.0 4.5 - 8.0 [facility] Protein Ql (U) Trace Abnormal Negative mg/dL [facility] SPECIFIC GRAVITY UA (POCT) 1.020 1.005 - 1.030 [facility] UROBILINOGEN UA (POCT) 0.2 E.U./dL Miguelina l E.U./dL [facility] Basophil percentageOrdered B y: Silvana Ward on 04-06-2023 Bilirubin [Mass/Vol] 1.10 mg/dL 0.20-1.00 [facility] Comment on above: For patients on eltr ombopag therapy, use of Dimension [place] TBIL is not recommended. Protein [Mass/Vol] 7.4 g/dL 6.4-8.2 [facility] Direct bilirubinOrdered By: Silvana Ward on 04-06-2023 Bilirubin.direct [Mass/Vol] 0.21 mg/dL 0.00-0.30 [facility] Laboratory - Chemistry and C hemistry - challengeOrdered By: Silvana Ward on 04-06-2023 ALP [Catalytic activity/Vol] 71 U/L 45-117 [facility] ALT [Catalytic activity/Vol] 75 U/L 13-56 [facility] Globulin (S) [Mass/Vol] 3.6 g/dL 2.2-4.2 [facility] No Panel InformationOrdered By: Silvana Ward on 04-06-2023 Hepatitis A IgM Antibody Negative Negative [facility] Hepatitis B Core IgM Antibody Negative Negative [facility] Hepatitis C Antibody (EIA) Non-Reactive Non Reactive [facility] Hepatitis C Antibody Comment Comment . [facility] Comment on above: Not infected with HC V unless early or acute infection issuspected (which may be delayed in an immunocompromisedindividual), or other evidence exists to indicate HCVinfection.Performed at: [facility] [address] [id number] Director: Emiliano Nguyen PhD, Phone: [phone] Serum or plasma albumin lydia urement (mass/volume)Ordered By: Silvana Ward on 04-06-2023 Albumin [Mass/Vol] 3.8 g/dL 3.2-5.0 [facility] Serum or plasma hepatitis B virus surface antigen detection by immunoassayOrdered By: Silvana Ward on 04-06-2023 HBV surface Ag IA Ql Negative Negative [facility] Thin prep Papanicolaou smear with manual screeningOrdered By: Silvana Ward on 04-06-2023 Thin prep Papanicolaou smear with manual screening 47 U/L 15-37 [facility] Whole blood hemoglobin A1c/t otal hemoglobin ratio (mass fraction)Ordered By: Silvana Ward on 04-06-2023 HbA1c (Bld) [Mass fraction] 6.0 % 3.8-5.6 [facility] Comment on above: Normal < 5.7 % Predi abetic 5.7 - 6.4 % Diabetic >or= 6.5 % Please note range changes. Absolute lymphocyte countOrd ered By: HEALTH ASSESSMENT on 04-01-2023 Lymphocytes Auto (Unsp spec) [#/Vol] 2.34 10*3/uL 0.83-4.51 [facility] Absolute reticulocyte countO rdered By: HEALTH ASSESSMENT on 04-01-2023 Reticulocytes (Bld) [#/Vol] 0.00 10*3/uL 0-5 [facility] Basophil percentageOrdered B y: HEALTH ASSESSMENT on 04-01-2023 Basophil percentage 3.3 mg/dL 2.5-4.9 [facility] Bilirubin [Mass/Vol] 0.80 mg/dL 0.20-1.00 [facility] Comment on above: For patients on eltr ombopag therapy, use of Dimension [place] TBIL is not recommended. Chloride [Moles/Vol] 106 mmol/L 98-107 [facility] Cholesterol [Mass/Vol] 207 mg/dL <200 [facility] Comment on above: <200 mg/dL Desirable 200-240 mg/dL Borderline >240 mg/dL High Risk Glucose [Mass/Vol] 139 mg/dL 74-106 [facility] Comment on above: Fasting Glucose resu lt greater than or equal to 126 mg/dL suggests DIABETES MELLITUS per A.D.A. criteria. LDH [Catalytic activity/Vol] 154 U/L 84-246 [facility] Neutrophils (Bld) [#/Vol] 2.3 10*3/uL 2.0-7.7 [facility] Potassium [Moles/Vol] 4.2 mmol/L 3.5-5.1 [facility] Protein [Mass/Vol] 7.4 g/dL 6.4-8.2 [facility] Sodium [Moles/Vol] 137 mmol/L 136-145 [facility] Triglyceride [Mass/Vol] 218 mg/dL <199 [facility] Comment on above: The drugs N-Acetylcy steine and Metamizole may falsely depress this assay.Serum Triglycerides Reference Interval Normal <150 mg/dL Borderline high 150 - 199 mg/dL High 200 - 499 mg/dL Very High > or = 500 mg/dL WBC (Bld) [#/Vol] 5.3 10*3/uL 4.4-11.0 [facility] Bilirubin Test strip Ql (U)O rdered By: HEALTH ASSESSMENT on 04-01-2023 Bilirubin Ql (U) Negative Negative [facility] Blood erythrocytes count (nu mber/volume)Ordered By: HEALTH ASSESSMENT on 04-01-2023 RBC (Bld) [#/Vol] 5.06 10*6/uL 4.2-5.4 [facility] Blood hemoglobin measurement (mass/volume)Ordered By: HEALTH ASSESSMENT on 04-01-2023 Hemoglobin (Bld) [Mass/Vol] 15.3 g/dL 12.0-15.0 [facility] Blood platelet mean volumeOr dered By: HEALTH ASSESSMENT on 04-01-2023 Platelet mean volume (Bld) [Entitic vol] 10.3 fL 6.2-12.0 [facility] Determination of erythrocyte mean corpuscular volume (MCV)Ordered By: HEALTH ASSESSMENT on 04-01-2023 MCV (RBC) [Entitic vol] 87.0 fL 81-99 [facility] Direct bilirubinOrdered By: HEALTH ASSESSMENT on 04-01-2023 Bilirubin.direct [Mass/Vol] 0.17 mg/dL 0.00-0.30 [facility] Hematocrit Auto (Bld) [Volum e fraction]Ordered By: HEALTH ASSESSMENT on 04-01-2023 Hematocrit (Bld) [Volume fraction] 44.0 % 37-47 [facility] Ketones Test strip Ql (U)Ord ered By: HEALTH ASSESSMENT on 04-01-2023 Ketones Ql (U) Negative Negative [facility] Laboratory - Chemistry and C hemistry - challengeOrdered By: HEALTH ASSESSMENT on 04-01-2023 ALP [Catalytic activity/Vol] 71 U/L 45-117 [facility] ALT [Catalytic activity/Vol] 68 U/L 13-56 [facility] Cholesterol.total/Choles terol in HDL [Mass ratio] 4.80 {ratio} [facility] CO2 [Moles/Vol] 25.0 mmol/L 21.0-32.0 [facility] Globulin (S) [Mass/Vol] 3.5 g/dL 2.2-4.2 [facility] Urea nitrogen/Creatinine [Mass ratio] 24.4 mg/mg 10-20 [facility] Laboratory - Hematology and Cell countsOrdered By: HEALTH ASSESSMENT on 04-01-2023 Erythrocyte distribution width (RBC) [Entitic vol] 38.1 fL 35.1-43.9 [facility] Erythrocyte distribution width (RBC) [Ratio] 11.9 % 11.6-14.6 [facility] MCH (RBC) [Entitic mass] 30.2 pg 27.0-32.0 [facility] Nucleated RBC/100 WBC (Bld) [Ratio] 0 % 0-5 [facility] MCHC Auto (RBC) [Mass/Vol]Or dered By: HEALTH ASSESSMENT on 04-01-2023 MCHC (RBC) [Mass/Vol] 34.8 g/dL 32-36 [facility] Nitrite Test strip Ql (U)Ord ered By: HEALTH ASSESSMENT on 04-01-2023 Nitrite Ql (U) Negative Negative [facility] No Panel InformationOrdered By: HEALTH ASSESSMENT on 04-01-2023 Estimated GFR (MDRD) Amer 96 mL/min >60 [facility] Comment on above: GFR Calc Estimated GFR (MDRD) Non-Af Amer 79 mL/min >60 [facility] Comment on above: Non- GFR Calc Platelets bldOrdered By: [facility] ASSESSMENT on 04-01-2023 Platelets (Bld) [#/Vol] 262 10*3/uL 150-450 [facility] Protein Test strip Ql (U)Ord ered By: HEALTH ASSESSMENT on 04-01-2023 Protein Ql (U) Negative Negative [facility] Segmented neutrophils/100 WB C Auto (Bld)Ordered By: HEALTH ASSESSMENT on 04-01-2023 Segmented neutrophils/100 WBC (Bld) 42.5 % 47-70 [facility] Serum or plasma albumin lydia urement (mass/volume)Ordered By: HEALTH ASSESSMENT on 04-01-2023 Albumin [Mass/Vol] 3.9 g/dL 3.2-5.0 [facility] Serum or plasma albumin/glob ulin mass ratioOrdered By: HEALTH ASSESSMENT on 04-01-2023 Albumin/Globulin [Mass ratio] 1.1 {ratio} 0.9-2.4 [facility] Serum or plasma calcium lydia urement (mass/volume)Ordered By: HEALTH ASSESSMENT on 04-01-2023 Calcium [Mass/Vol] 9.3 mg/dL 8.5-10.1 [facility] Serum or plasma cholesterol in HDL measurement (mass/volume)Ordered By: HEALTH ASSESSMENT on 04-01-2023 Cholesterol in HDL [Mass/Vol] 43 mg/dL >40 [facility] Comment on above: The drugs N-Acetylcy steine and Metamizole may falsely depress this assay. Reference Range HDL <40 mg/dL Low HDL Cholesterol HDL >or= 60 mg/dL High HDL Cholesterol Serum or plasma cholesterol in VLDL measurement (mass/volume)Ordered By: HEALTH ASSESSMENT on 04-01-2023 Cholesterol in VLDL [Mass/Vol] 44 mg/dL 5-40 [facility] Serum or plasma creatinine m easurement (mass/volume)Ordered By: HEALTH ASSESSMENT on 04-01-2023 Creatinine [Mass/Vol] 0.82 mg/dL 0.55-1.02 [facility] Comment on above: The validity of the calculated GFR & GFRAA in patients over 70 years has not been determined. Clinical correlation is essential. Serum or plasma low density lipoprotein (LDL) cholesterol measurement (mass/volume)Ordered By: HEALTH ASSESSMENT on 04-01-2023 Cholesterol in LDL [Mass/Vol] 120 mg/dL 0-130 [facility] Serum or plasma urea nitroge n measurement (mass/volume)Ordered By: HEALTH ASSESSMENT on 04-01-2023 Urea nitrogen [Mass/Vol] 20 mg/dL 7-18 [facility] Serum or plasma uric acid me asurement (mass/volume)Ordered By: HEALTH ASSESSMENT on 04-01-2023 Urate [Mass/Vol] 7.2 mg/dL 2.6-6.0 [facility] Comment on above: The drugs N-Acetylcy steine and Metamizole may falsely depress this assay. Thin prep Papanicolaou smear with manual screeningOrdered By: HEALTH ASSESSMENT on 04-01-2023 Thin prep Papanicolaou smear with manual screening 41 U/L 15-37 [facility] Thin prep Papanicolaou smear with manual screening 6 5-15 [facility] Urine blood detectionOrdered By: HEALTH ASSESSMENT on 04-01-2023 RBC Ql (U) Negative Negative [facility] Urine clarityOrdered By: [facility] ASSESSMENT on 04-01-2023 Clarity (U) Clear Clear [facility] Urine color determinationOrd ered By: HEALTH ASSESSMENT on 04-01-2023 Color (U) Yellow Yellow [facility] Urine glucose detectionOrder ed By: HEALTH ASSESSMENT on 04-01-2023 Glucose Ql (U) Normal mg/dl Normal [facility] Urine leukocyte esterase det ection by dipstickOrdered By: HEALTH ASSESSMENT on 04-01-2023 Leukocyte esterase Test strip Ql (U) Negative Negative [facility] Urine pHOrdered By: HEALTH A SSESSMENT on 04-01-2023 pH (U) 5.0 [pH] 5.0 - 8.0 [facility] Urine specific gravity measu rementOrdered By: HEALTH ASSESSMENT on 04-01-2023 Specific gravity (U) [Rel density] 1.025 1.002-1.030 [facility] Urobilinogen Auto test strip Ql (U)Ordered By: HEALTH ASSESSMENT on 04-01-2023 Urobilinogen Ql (U) Normal mg/dl Normal [facility] Laboratory - Chemistry and C hemistry - challengeon 03-24-2022 Free T4 [Mass/Vol] 0.93 ng/dL 0.76-1.46 [facility] Work Phone: Magnesium [Mass/Vol] 1.7 mg/dL 1.6-2.6 [facility] Work Phone: No Panel Informationon 03-24 Thyroid Stimulating Hormone (TSH) 1.49 uIU/mL 0.358-3.74 [facility] Work Phone: Absolute lymphocyte counton 03-20-2022 Lymphocytes Auto (Unsp spec) [#/Vol] 2.49 10*3/uL 0.83-4.51 [facility] Work Phone: Absolute reticulocyte counto n 03-20-2022 Reticulocytes (Bld) [#/Vol] 0.00 10*3/uL 0-5 [facility] Work Phone: Basophil percentageon 2021 Basophil percentage 3.2 mg/dL 2.5-4.9 [facility] Work Phone: Bilirubin [Mass/Vol] 0.90 mg/dL 0.20-1.00 [facility] Work Phone: Comment on above: For patients on eltr ombopag therapy, use of Dimension [place] TBIL is not recommended. Chloride [Moles/Vol] 107 mmol/L 98-107 [facility] Work Phone: Cholesterol [Mass/Vol] 194 mg/dL <200 [facility] Comment on above: <200 mg/dL Desirable 200-240 mg/dL Borderline >240 mg/dL High Risk Glucose [Mass/Vol] 125 mg/dL 74-106 [facility] Work Phone: Comment on above: Fasting Glucose resu lt from 100 to 125 mg/dL suggests IMPAIRED HOMEOSTASIS per A.D.A. criteria. Neutrophils (Bld) [#/Vol] 3.2 10*3/uL 2.0-7.7 [facility] Work Phone: Potassium [Moles/Vol] 4.0 mmol/L 3.5-5.1 [facility] Work Phone: Protein [Mass/Vol] 7.3 g/dL 6.4-8.2 [facility] Work Phone: Sodium [Moles/Vol] 139 mmol/L 136-145 [facility] Work Phone: Triglyceride [Mass/Vol] 284 mg/dL <199 [facility] Comment on above: The drugs N-Acetylcy steine and Metamizole may falsely depress this assay.Serum Triglycerides Reference Interval Normal <150 mg/dL Borderline high 150 - 199 mg/dL High 200 - 499 mg/dL Very High > or = 500 mg/dL WBC (Bld) [#/Vol] 6.4 10*3/uL 4.4-11.0 [facility] Work Phone: Bilirubin Test strip Ql (U)o n 03-20-2022 Bilirubin Ql (U) Negative Negative [facility] Work Phone: Blood erythrocytes count (nu mber/volume)on 03-20-2022 RBC (Bld) [#/Vol] 4.88 10*6/uL 4.2-5.4 [facility] Work Phone: Blood hemoglobin measurement (mass/volume)on 03-20-2022 Hemoglobin (Bld) [Mass/Vol] 14.5 g/dL 12.0-15.0 [facility] Work Phone: Blood platelet mean volumeon 03-20-2022 Platelet mean volume (Bld) [Entitic vol] 10.2 fL 6.2-12.0 [facility] Work Phone: Determination of erythrocyte mean corpuscular volume (MCV)on 03-20-2022 MCV (RBC) [Entitic vol] 88.1 fL 81-99 [facility] Work Phone: Direct bilirubinon Bilirubin.direct [Mass/Vol] 0.13 mg/dL 0.00-0.30 [facility] Work Phone: Hematocrit Auto (Bld) [Volum e fraction]on 03-20-2022 Hematocrit (Bld) [Volume fraction] 43.0 % 37-47 [facility] Work Phone: Ketones Test strip Ql (U)on 03-20-2022 Ketones Ql (U) Negative Negative [facility] Work Phone: LIPID PANEL (OUTSIDE)on 02-28 TC:HDL Ratio 4.80 [facility] VLDL Cholesterol 57 [facility] Laboratory - Chemistry and C hemistry - challengeon 03-20-2022 ALP [Catalytic activity/Vol] 67 U/L 45-117 [facility] Work Phone: ALT [Catalytic activity/Vol] 56 U/L 13-56 [facility] Work Phone: Cholesterol.total/Choles terol in HDL [Mass ratio] 4.80 {ratio} [facility] Work Phone: CO2 [Moles/Vol] 25.0 mmol/L 21.0-32.0 [facility] Work Phone: Globulin (S) [Mass/Vol] 3.6 g/dL 2.2-4.2 [facility] Work Phone: Urea nitrogen/Creatinine [Mass ratio] 20.5 mg/mg 10-20 [facility] Work Phone: Laboratory - Hematology and Cell countson 03-20-2022 Erythrocyte distribution width (RBC) [Entitic vol] 38.7 fL 35.1-43.9 [facility] Work Phone: Erythrocyte distribution width (RBC) [Ratio] 11.9 % 11.6-14.6 [facility] Work Phone: MCH (RBC) [Entitic mass] 29.7 pg 27.0-32.0 [facility] Work Phone: Nucleated RBC/100 WBC (Bld) [Ratio] 0 % 0-5 [facility] Work Phone: MCHC Auto (RBC) [Mass/Vol]on 03-20-2022 MCHC (RBC) [Mass/Vol] 33.7 g/dL 32-36 [facility] Work Phone: Nitrite Test strip Ql (U)on 03-20-2022 Nitrite Ql (U) Negative Negative [facility] Work Phone: No Panel Informationon 03-20 Estimated GFR (MDRD) Amer 95 mL/min >60 [facility] Work Phone: Comment on above: GFR Calc Estimated GFR (MDRD) Non-Af Amer 78 mL/min >60 [facility] Work Phone: Comment on above: Non- GFR Calc Platelets bldon 03-20-2022 Platelets (Bld) [#/Vol] 268 10*3/uL 150-450 [facility] Work Phone: Protein Test strip Ql (U)on 03-20-2022 Protein Ql (U) Negative Negative [facility] Work Phone: Segmented neutrophils/100 WB C Auto (Bld)on 03-20-2022 Segmented neutrophils/100 WBC (Bld) 49.3 % 47-70 [facility] Work Phone: Serum or plasma albumin lydia urement (mass/volume)on 03-20-2022 Albumin [Mass/Vol] 3.7 g/dL 3.2-5.0 [facility] Work Phone: Serum or plasma albumin/glob ulin mass ratioon 03-20-2022 Albumin/Globulin [Mass ratio] 1.0 {ratio} 0.9-2.4 [facility] Work Phone: Serum or plasma calcium lydia urement (mass/volume)on 03-20-2022 Calcium [Mass/Vol] 9.1 mg/dL 8.5-10.1 [facility] Work Phone: Serum or plasma cholesterol in HDL measurement (mass/volume)on 03-20-2022 Cholesterol in HDL [Mass/Vol] 40 mg/dL >40 [facility] Comment on above: The drugs N-Acetylcy steine and Metamizole may falsely depress this assay. Reference Range HDL <40 mg/dL Low HDL Cholesterol HDL >or= 60 mg/dL High HDL Cholesterol Serum or plasma cholesterol in VLDL measurement (mass/volume)on 03-20-2022 Cholesterol in VLDL [Mass/Vol] 57 mg/dL 5-40 [facility] Work Phone: Serum or plasma creatinine m easurement (mass/volume)on 03-20-2022 Creatinine [Mass/Vol] 0.83 mg/dL 0.55-1.02 [facility] Work Phone: Comment on above: The validity of the calculated GFR & GFRAA in patients over 70 years has not been determined. Clinical correlation is essential. Serum or plasma low density lipoprotein (LDL) cholesterol measurement (mass/volume)on 03-20-2022 Cholesterol in LDL [Mass/Vol] 97 mg/dL 0-130 [facility] Serum or plasma urea nitroge n measurement (mass/volume)on 03-20-2022 Urea nitrogen [Mass/Vol] 17 mg/dL 7-18 [facility] Work Phone: Serum or plasma uric acid me asurement (mass/volume)on 03-20-2022 Urate [Mass/Vol] 7.4 mg/dL 2.6-6.0 [facility] Work Phone: Comment on above: The drugs N-Acetylcy steine and Metamizole may falsely depress this assay. Thin prep Papanicolaou smear with manual screeningon 03-20-2022 Thin prep Papanicolaou smear with manual screening 34 U/L 15-37 [facility] Work Phone: Thin prep Papanicolaou smear with manual screening 7 5-15 [facility] Work Phone: Thin prep Papanicolaou smear with manual screening 153 U/L 84-246 [facility] Work Phone: Urine blood detectionon 02-28 RBC Ql (U) Negative Negative [facility] Work Phone: Urine clarityon 03-20-2022 Clarity (U) Clear Clear [facility] Work Phone: Urine color determinationon 03-20-2022 Color (U) Yellow Yellow [facility] Work Phone: Urine glucose detectionon Glucose Ql (U) Normal mg/dl Normal [facility] Work Phone: Urine leukocyte esterase det ection by dipstickon 03-20-2022 Leukocyte esterase Test strip Ql (U) Negative Negative [facility] Work Phone: Urine pHon 03-20-2022 pH (U) 6.0 [pH] 5.0 - 8.0 [facility] Work Phone: Urine specific gravity measu rementon 03-20-2022 Specific gravity (U) [Rel density] 1.020 1.002-1.030 [facility] Work Phone: Urobilinogen Auto test strip Ql (U)on 03-20-2022 Urobilinogen Ql (U) Normal mg/dl Normal [facility] Work Phone: Vital Signs Date Time Vital Sign Value Performing Clinician Nelly lauren 06-08-2025 13:25-0400 Body height 167.64 cm Silvana Ward NP-C Work Phone: [facility] 06-07-2025 09:30-0400 Body temperature 97.6 [degF] Silvana Ward NP-C Work Phone: 9(260)757-327760 [place] [address] 06-07-2025 09:30-0400 Diastolic blood pressure 71 mm[Hg] Silvana Haagen PERFORATING MACHINE OPERATOR-C Work Phone: 5(625)487-602360 [place] [address] 06-07-2025 09:30-0400 Heart rate 59 /min Silvana Haagen PERFORATING MACHINE OPERATOR-C Work Phone: 9(294)124-195460 [place] [address] 06-07-2025 09:30-0400 Respiratory rate 16 /min Silvana Haagen PERFORATING MACHINE OPERATOR-C Work Phone: 5(504)743-236860 [place] [address] 06-07-2025 09:30-0400 SaO2% (BldA) [Mass fraction] 98 % Silvana Haagen PERFORATING MACHINE OPERATOR-C Work Phone: 2(582)109-199360 [place] [address] 06-07-2025 09:30-0400 Systolic blood pressure 121 mm[Hg] Silvana Haagen PERFORATING MACHINE OPERATOR-C Work Phone: 8(019)399-923460 [place] [address] 06-06-2025 15:15-0400 Inhaled oxygen flow rate 2 L/min Silvana Haagen PERFORATING MACHINE OPERATOR-C Work Phone: 7(679)592-391560 [place] [address] 06-06-2025 09:48-0400 Body mass index (BMI) [Ratio] 38.2 kg/m2 Silvana Haagen PERFORATING MACHINE OPERATOR-C Work Phone: 3(498)891-774860 [place] [address] 06-06-2025 09:48-0400 Body weight 107.5 kg Silvana Haagen PERFORATING MACHINE OPERATOR-C Work Phone: 6(763)654-401460 [place] [address] 06-06-2025 08:29-0400 Body temperature 98.1 [degF] Silvana Haagen PERFORATING MACHINE OPERATOR-C Work Phone: 5(830)665-261760 [place] [address] 06-06-2025 08:29-0400 Diastolic blood pressure 64 mm[Hg] Silvana Haagen PERFORATING MACHINE OPERATOR-C Work Phone: 0(582)247-923260 [place] [address] 06-06-2025 08:29-0400 Heart rate 75 /min Silvana Haagen PERFORATING MACHINE OPERATOR-C Work Phone: 5(983)095-749360 [place] [address] 06-06-2025 08:29-0400 Respiratory rate 16 /min Silvana Haagen PERFORATING MACHINE OPERATOR-C Work Phone: 8(973)751-196431 [place] [address] 06-06-2025 08:29-0400 SaO2% (BldA) [Mass fraction] 94 % Silvana Haagen PERFORATING MACHINE OPERATOR-C Work Phone: 5(502)936-308160 [place] [address] 06-06-2025 08:29-0400 Systolic blood pressure 116 mm[Hg] Silvana Haagen PERFORATING MACHINE OPERATOR-C Work Phone: 8(249)057-850160 [place] [address] 06-06-2025 05:31-0400 Body height 167.64 cm Silvana Haagen PERFORATING MACHINE OPERATOR-C Work Phone: 7(147)923-342560 [place] [address] 06-06-2025 05:31-0400 Body mass index (BMI) [Ratio] 38.7 kg/m2 Silvana Haagen PERFORATING MACHINE OPERATOR-C Work Phone: 3(955)042-522560 [place] [address] 06-06-2025 05:31-0400 Body weight 108.8 kg Silvana Haagen PERFORATING MACHINE OPERATOR-C Work Phone: 1(503)944-443760 [place] [address] 05-29-2025 16:15-0400 Body temperature 97.4 [degF] Silvana Haagen PERFORATING MACHINE OPERATOR-C Work Phone: 4(621)850-726660 [place] [address] 05-29-2025 16:15-0400 Diastolic blood pressure 68 mm[Hg] Silvana Haagen PERFORATING MACHINE OPERATOR-C Work Phone: 8(127)222-473460 [place] [address] 05-29-2025 16:15-0400 Heart rate 74 /min Silvana Haagen PERFORATING MACHINE OPERATOR-C Work Phone: 4(620)758-820460 [place] [address] 05-29-2025 16:15-0400 Respiratory rate 16 /min Silvana Haagen PERFORATING MACHINE OPERATOR-C Work Phone: 2(041)889-414960 [place] [address] 05-29-2025 16:15-0400 SaO2% (BldA) [Mass fraction] 94 % Silvana Haagen PERFORATING MACHINE OPERATOR-C Work Phone: 6(516)738-526460 [place] [address] 05-29-2025 16:15-0400 Systolic blood pressure 110 mm[Hg] Silvana Haagen PERFORATING MACHINE OPERATOR-C Work Phone: 0(549)776-845460 [place] [address] 05-29-2025 12:23-0400 Body height 167.64 cm Silvana Haagen PERFORATING MACHINE OPERATOR-C Work Phone: 6(977)161-451431 [place] [address] 05-29-2025 12:23-0400 Body mass index (BMI) [Ratio] 37.8 kg/m2 Silvana Haagen PERFORATING MACHINE OPERATOR-C Work Phone: 1(494)399-719560 [place] [address] 05-29-2025 12:23-0400 Body weight 106.14 kg Silvana Haagen PERFORATING MACHINE OPERATOR-C Work Phone: 4(941)392-445860 [place] [address] 05-25-2025 14:03-0400 Body mass index (BMI) [Ratio] 39.9 kg/m2 Silvana Haagen PERFORATING MACHINE OPERATOR-C Work Phone: 3(156)458-155360 [place] [address] 05-25-2025 14:03-0400 Body temperature 97.9 [degF] Silvana Haagen PERFORATING MACHINE OPERATOR-C Work Phone: 6(048)489-564560 [place] [address] 05-25-2025 14:03-0400 Body weight 112.03 kg Silvana Haagen PERFORATING MACHINE OPERATOR-C Work Phone: 9(936)020-150760 [place] [address] 05-25-2025 14:03-0400 Diastolic blood pressure 84 mm[Hg] Silvana Haagen PERFORATING MACHINE OPERATOR-C Work Phone: 7(115)865-028060 [place] [address] 05-25-2025 14:03-0400 Heart rate 72 /min Silvana Haagen PERFORATING MACHINE OPERATOR-C Work Phone: 6(827)336-346560 [place] [address] 05-25-2025 14:03-0400 Respiratory rate 18 /min Silvana Haagen PERFORATING MACHINE OPERATOR-C Work Phone: 6(503)615-681060 [place] [address] 05-25-2025 14:03-0400 SaO2% (BldA) [Mass fraction] 99 % Silvana Haagen PERFORATING MACHINE OPERATOR-C Work Phone: 1(159)656-702860 [place] [address] 05-25-2025 14:03-0400 Systolic blood pressure 120 mm[Hg] Silvana Haagen PERFORATING MACHINE OPERATOR-C Work Phone: 4(734)673-179560 [place] [address] 04-05-2025 14:27-0400 Body temperature 96.8 [degF] Silvana Haagen PERFORATING MACHINE OPERATOR-C Work Phone: 8(400)313-949460 [place] [address] 04-05-2025 14:27-0400 Diastolic blood pressure 72 mm[Hg] Silvana Ward PERFORATING MACHINE OPERATOR-C Work Phone: [facility] 04-05-2025 14:27-0400 Heart rate 67 /min Silvana Ward PERFORATING MACHINE OPERATOR-C Work Phone: [facility] 04-05-2025 14:27-0400 Respiratory rate 14 /min Silvana Underwoodagen PERFORATING MACHINE OPERATOR-C Work Phone: 9(487)033-998660 [place] [address] 04-05-2025 14:27-0400 SaO2% (BldA) [Mass fraction] 94 % Silvana Ward PERFORATING MACHINE OPERATOR-C Work Phone: 2(984)356-105960 [place] [address] 04-05-2025 14:27-0400 Systolic blood pressure 107 mm[Hg] Silvana Underwoodagen PERFORATING MACHINE OPERATOR-C Work Phone: 3(396)971-077660 [place] [address] 04-05-2025 12:45-0400 Inhaled oxygen flow rate 2 L/min Silvana Underwoodagen PERFORATING MACHINE OPERATOR-C Work Phone: 9(121)132-076360 [place] [address] 04-05-2025 09:20-0400 Body height 167.64 cm Silvana Underwoodagen PERFORATING MACHINE OPERATOR-C Work Phone: 6(890)786-888060 [place] [address] 04-05-2025 09:20-0400 Body mass index (BMI) [Ratio] 39.1 kg/m2 Silvana Underwoodagen PERFORATING MACHINE OPERATOR-C Work Phone: 8(871)935-799960 [place] [address] 04-05-2025 09:20-0400 Body weight 110 kg Silvana Underwoodagen PERFORATING MACHINE OPERATOR-C Work Phone: 8(892)381-171060 [place] [address] 03-13-2025 08:18-0400 Body mass index (BMI) [Ratio] 38.01 kg/m2 Silvana Ward MOVABLE BULKHEAD INSTALLER.ANIMAL DAYCARE PROVIDER Work Phone: [facility] 03-13-2025 08:18-0400 Body weight 111.13 kg Silvana Ward MOVABLE BULKHEAD INSTALLER.ANIMAL DAYCARE PROVIDER Work Phone: [facility] 03-13-2025 08:18-0400 Diastolic blood pressure 82 mm[Hg] Silvana Ward MOVABLE BULKHEAD INSTALLER.ANIMAL DAYCARE PROVIDER Work Phone: [facility] 03-13-2025 08:18-0400 Heart rate 69 /min Silvana Ward MOVABLE BULKHEAD INSTALLER.ANIMAL DAYCARE PROVIDER Work Phone: [facility] 03-13-2025 08:18-0400 Respiratory rate 16 /min Silvana Ward MOVABLE BULKHEAD INSTALLER.ANIMAL DAYCARE PROVIDER Work Phone: [facility] 03-13-2025 08:18-0400 SaO2% (BldA) [Mass fraction] 97 % Silvana Ward MOVABLE BULKHEAD INSTALLER.ANIMAL DAYCARE PROVIDER Work Phone: [facility] 03-13-2025 08:18-0400 Systolic blood pressure 118 mm[Hg] Silvana Ward MOVABLE BULKHEAD INSTALLER.ANIMAL DAYCARE PROVIDER Work Phone: 4(369)053-797946 [place] [address] 12-22-2024 14:13-0400 Body height 167.64 cm Silvana Haagen PERFORATING MACHINE OPERATOR-C Work Phone: 9(029)587-206331 [place] [address] 12-22-2024 14:13-0400 Body mass index (BMI) [Ratio] 39.5 kg/m2 Silvana Haagen PERFORATING MACHINE OPERATOR-C Work Phone: 0(417)244-558531 [place] [address] 12-22-2024 14:13-0400 Body weight 111.13 kg Silvana Haagen PERFORATING MACHINE OPERATOR-C Work Phone: 3(205)571-609160 [place] [address] 12-22-2024 14:13-0400 Diastolic blood pressure 86 mm[Hg] Silvana Haagen PERFORATING MACHINE OPERATOR-C Work Phone: 2(586)967-407031 [place] [address] 12-22-2024 14:13-0400 Heart rate 82 /min Silvana Haagen PERFORATING MACHINE OPERATOR-C Work Phone: 8(586)396-252931 [place] [address] 12-22-2024 14:13-0400 Respiratory rate 17 /min Silvana Haagen PERFORATING MACHINE OPERATOR-C Work Phone: 5(455)948-815560 [place] [address] 12-22-2024 14:13-0400 SaO2% (BldA) [Mass fraction] 96 % Silvana Haagen PERFORATING MACHINE OPERATOR-C Work Phone: 4(686)145-126631 [place] [address] 12-22-2024 14:13-0400 Systolic blood pressure 132 mm[Hg] Silvana Haagen PERFORATING MACHINE OPERATOR-C Work Phone: 9(424)568-461060 [place] [address] 12-16-2024 12:39-0400 Body temperature 98.4 [degF] Silvana Haagen PERFORATING MACHINE OPERATOR-C Work Phone: 6(711)101-619960 [place] [address] 12-16-2024 12:39-0400 Diastolic blood pressure 66 mm[Hg] Silvana Haagen PERFORATING MACHINE OPERATOR-C Work Phone: 6(336)253-451760 [place] [address] 12-16-2024 12:39-0400 Heart rate 94 /min Slivana Haagen PERFORATING MACHINE OPERATOR-C Work Phone: 8(213)987-620560 [place] [address] 12-16-2024 12:39-0400 Respiratory rate 17 /min Silvana Haagen PERFORATING MACHINE OPERATOR-C Work Phone: 7(160)615-419560 [place] [address] 12-16-2024 12:39-0400 SaO2% (BldA) [Mass fraction] 95 % Silvana Haagen PERFORATING MACHINE OPERATOR-C Work Phone: 9(008)727-414260 [place] [address] 12-16-2024 12:39-0400 Systolic blood pressure 110 mm[Hg] Silvana Haagen PERFORATING MACHINE OPERATOR-C Work Phone: 6(715)624-562960 [place] [address] 10-26-2024 09:21-0500 Body height 167.64 cm Silvana Haagen PERFORATING MACHINE OPERATOR-C Work Phone: 8(335)618-541760 [place] [address] 10-26-2024 09:21-0500 Body temperature 98.1 [degF] Silvana Haagen PERFORATING MACHINE OPERATOR-C Work Phone: 2(482)108-914860 [place] [address] 10-26-2024 09:21-0500 Diastolic blood pressure 77 mm[Hg] Silvana Haagen PERFORATING MACHINE OPERATOR-C Work Phone: 4(480)452-893260 [place] [address] 10-26-2024 09:21-0500 Heart rate 75 /min Silvana Haagen PERFORATING MACHINE OPERATOR-C Work Phone: 6(611)915-533360 [place] [address] 10-26-2024 09:21-0500 Respiratory rate 18 /min Silvana Haagen PERFORATING MACHINE OPERATOR-C Work Phone: 2(463)386-266360 [place] [address] 10-26-2024 09:21-0500 SaO2% (BldA) [Mass fraction] 96 % Silvana Haagen PERFORATING MACHINE OPERATOR-C Work Phone: [facility] 10-26-2024 09:21-0500 Systolic blood pressure 122 mm[Hg] Silvana Ward PERFORATING MACHINE OPERATOR-C Work Phone: [facility] 04-10-2024 08:08-0400 Body height 171 cm Silvana Ward MOVABLE BULKHEAD INSTALLER.ANIMAL DAYCARE PROVIDER Work Phone: [facility] 04-10-2024 08:08-0400 Body mass index (BMI) [Ratio] 38.63 kg/m2 Silvana Ward MOVABLE BULKHEAD INSTALLER.ANIMAL DAYCARE PROVIDER Work Phone: [facility] 04-10-2024 08:08-0400 Body weight 112.95 kg Silvana Ward MOVABLE BULKHEAD INSTALLER.ANIMAL DAYCARE PROVIDER Work Phone: [facility] 04-10-2024 08:08-0400 Diastolic blood pressure 72 mm[Hg] Silvana Ward MOVABLE BULKHEAD INSTALLER.ANIMAL DAYCARE PROVIDER Work Phone: [facility] 04-10-2024 08:08-0400 Heart rate 68 /min Silvana Ward MOVABLE BULKHEAD INSTALLER.ANIMAL DAYCARE PROVIDER Work Phone: [facility] 04-10-2024 08:08-0400 Respiratory rate 16 /min Silvana Ward MOVABLE BULKHEAD INSTALLER.ANIMAL DAYCARE PROVIDER Work Phone: [facility] 04-10-2024 08:08-0400 SaO2% (BldA) [Mass fraction] 95 % Silvana Ward MOVABLE BULKHEAD INSTALLER.ANIMAL DAYCARE PROVIDER Work Phone: [facility] 04-10-2024 08:08-0400 Systolic blood pressure 110 mm[Hg] Silvana Ward MOVABLE BULKHEAD INSTALLER.ANIMAL DAYCARE PROVIDER Work Phone: [facility] 12-23-2023 10:06-0400 Body height 170.18 cm PERFORATING MACHINE OPERATOR-C Silvana Ward PERFORATING MACHINE OPERATOR Work Phone: [facility] 12-23-2023 10:06-0400 Body weight 113.39 kg PERFORATING MACHINE OPERATOR-C Silvana Ward PERFORATING MACHINE OPERATOR Work Phone: [facility] 12-23-2023 09:42-0400 Body mass index (BMI) [Ratio] 39.1 kg/m2 PERFORATING MACHINE OPERATOR-C Silvana Ward PERFORATING MACHINE OPERATOR Work Phone: 7(901)792-479431 [place] [address] 12-22-2023 10:17-0400 Body weight 115.21 kg PERFORATING MACHINE OPERATOR-C Silvana Ward PERFORATING MACHINE OPERATOR Work Phone: 0(014)805-497460 [place] [address] 12-22-2023 10:16-0400 Body mass index (BMI) [Ratio] 39.7 kg/m2 PERFORATING MACHINE OPERATOR-C Silvana Ward PERFORATING MACHINE OPERATOR Work Phone: 7(668)443-025960 [place] [address] 12-03-2023 12:26-0400 Body temperature 98 [degF] PERFORATING MACHINE OPERATOR-C Silvana Ward PERFORATING MACHINE OPERATOR Work Phone: 6(379)144-767360 [place] [address] 12-03-2023 12:26-0400 Diastolic blood pressure 69 mm[Hg] PERFORATING MACHINE OPERATOR-C Silvana Ward PERFORATING MACHINE OPERATOR Work Phone: 7(211)862-074560 [place] [address] 12-03-2023 12:26-0400 Heart rate 74 /min PERFORATING MACHINE OPERATOR-C Silvana Ward PERFORATING MACHINE OPERATOR Work Phone: 1(433)257-414460 [place] [address] 12-03-2023 12:26-0400 Respiratory rate 16 /min PERFORATING MACHINE OPERATOR-C Silvana Ward PERFORATING MACHINE OPERATOR Work Phone: 1(098)906-317160 [place] [address] 12-03-2023 12:26-0400 SaO2% (BldA) [Mass fraction] 96 % PERFORATING MACHINE OPERATOR-C Silvana Ward PERFORATING MACHINE OPERATOR Work Phone: 4(017)069-169360 [place] [address] 12-03-2023 12:26-0400 Systolic blood pressure 118 mm[Hg] PERFORATING MACHINE OPERATOR-C Silvana Ward PERFORATING MACHINE OPERATOR Work Phone: 1(275)486-120160 [place] [address] 12-03-2023 07:11-0400 Body height 167.64 cm PERFORATING MACHINE OPERATOR-C Silvana Ward PERFORATING MACHINE OPERATOR Work Phone: 8(048)707-057860 [place] [address] 12-03-2023 07:11-0400 Body mass index (BMI) [Ratio] 40.9 kg/m2 PERFORATING MACHINE OPERATOR-C Silvana Ward PERFORATING MACHINE OPERATOR Work Phone: 4(659)259-828160 [place] [address] 12-03-2023 07:11-0400 Body weight 115 kg PERFORATING MACHINE OPERATOR-C Silvana Ward PERFORATING MACHINE OPERATOR Work Phone: 4(392)285-850360 [place] [address] 09-07-2023 13:05-0500 Body temperature 98.2 [degF] PERFORATING MACHINE OPERATOR-C Silvana Ward PERFORATING MACHINE OPERATOR Work Phone: [facility] 09-07-2023 13:05-0500 Body weight 115.21 kg PERFORATING MACHINE OPERATOR-C Slivana Ward PERFORATING MACHINE OPERATOR Work Phone: [facility] 09-07-2023 13:05-0500 Diastolic blood pressure 80 mm[Hg] PERFORATING MACHINE OPERATOR-C Silvana Ward PERFORATING MACHINE OPERATOR Work Phone: [facility] 09-07-2023 13:05-0500 Heart rate 80 /min PERFORATING MACHINE OPERATOR-C Silvana Ward PERFORATING MACHINE OPERATOR Work Phone: [facility] 09-07-2023 13:05-0500 Respiratory rate 16 /min PERFORATING MACHINE OPERATOR-C Silvana Ward PERFORATING MACHINE OPERATOR Work Phone: 3(017)539-496160 [place] [address] 09-07-2023 13:05-0500 SaO2% (BldA) [Mass fraction] 97 % PERFORATING MACHINE OPERATOR-C Silvana Ward PERFORATING MACHINE OPERATOR Work Phone: [facility] 09-07-2023 13:05-0500 Systolic blood pressure 128 mm[Hg] PERFORATING MACHINE OPERATOR-C Silvana Ward PERFORATING MACHINE OPERATOR Work Phone: [facility] 08-02-2023 16:25-0500 Diastolic blood pressure 90 mm[Hg] Silvana Haagen MOVABLE BULKHEAD INSTALLER.ANIMAL DAYCARE PROVIDER Work Phone: [facility] 08-02-2023 16:25-0500 Heart rate 91 /min Silvana Haagen MOVABLE BULKHEAD INSTALLER.ANIMAL DAYCARE PROVIDER Work Phone: [facility] 08-02-2023 16:25-0500 Respiratory rate 16 /min Silvana Haagen MOVABLE BULKHEAD INSTALLER.ANIMAL DAYCARE PROVIDER Work Phone: [facility] 08-02-2023 16:25-0500 SaO2% (BldA) [Mass fraction] 96 % Silvana Haagen MOVABLE BULKHEAD INSTALLER.ANIMAL DAYCARE PROVIDER Work Phone: [facility] 08-02-2023 16:25-0500 Systolic blood pressure 130 mm[Hg] Silvana Haagen MOVABLE BULKHEAD INSTALLER.ANIMAL DAYCARE PROVIDER Work Phone: [facility] 04-06-2023 08:02-0400 Body height 169 cm Silvana Haagen MOVABLE BULKHEAD INSTALLER.ANIMAL DAYCARE PROVIDER Work Phone: [facility] 04-06-2023 08:02-0400 Body weight 111.13 kg Silvana Ward MOVABLE BULKHEAD INSTALLER.ANIMAL DAYCARE PROVIDER Work Phone: [facility] 04-06-2023 08:02-0400 Diastolic blood pressure 88 mm[Hg] Silvana Underwoodagen MOVABLE BULKHEAD INSTALLER.ANIMAL DAYCARE PROVIDER Work Phone: [facility] 04-06-2023 08:02-0400 Heart rate 64 /min Silvana Underwoodagen MOVABLE BULKHEAD INSTALLER.ANIMAL DAYCARE PROVIDER Work Phone: [facility] 04-06-2023 08:02-0400 Respiratory rate 16 /min Silvana Ward MOVABLE BULKHEAD INSTALLER.ANIMAL DAYCARE PROVIDER Work Phone: [facility] 04-06-2023 08:02-0400 SaO2% (BldA) [Mass fraction] 98 % Silvana Ward MOVABLE BULKHEAD INSTALLER.ANIMAL DAYCARE PROVIDER Work Phone: [facility] 04-06-2023 08:02-0400 Systolic blood pressure 122 mm[Hg] Silvana Ward MOVABLE BULKHEAD INSTALLER.ANIMAL DAYCARE PROVIDER Work Phone: [facility] [facility] 07-30-2022 14:19-0500 Body height 170.[address] Jong Weems Work Phone: [facility] Work Phone: 07-30-2022 14:19-0500 Body mass index (BMI) [Ratio] 38.7 kg/m2 Dr. Jong Weems Work Phone: [facility] Work Phone: 07-30-2022 14:19-0500 Body weight 112.[address] Jong Weems Work Phone: [facility] Work Phone: 07-30-2022 14:19-0500 Diastolic blood pressure 78 mm[Hg] Dr. Jong Weems Work Phone: [facility] Work Phone: 07-30-2022 14:19-0500 Heart rate 68 /min Dr. Jong Weems Work Phone: [facility] Work Phone: 07-30-2022 14:19-0500 Respiratory rate 16 /min Dr. Jong Weems Work Phone: [facility] Work Phone: 07-30-2022 14:19-0500 Systolic blood pressure 120 mm[Hg] Dr. Jong Weems Work Phone: [facility] Work Phone: 03-24-2022 13:01-0400 Body height 170 cm Silvanadaquan Ward MOVABLE BULKHEAD INSTALLER.ANIMAL DAYCARE PROVIDER Work Phone: [facility] 03-24-2022 13:01-0400 Body weight 111.58 kg Silvana Ward MOVABLE BULKHEAD INSTALLER.ANIMAL DAYCARE PROVIDER Work Phone: [facility] 03-24-2022 13:01-0400 Diastolic blood pressure 88 mm[Hg] Silvana Ward MOVABLE BULKHEAD INSTALLER.ANIMAL DAYCARE PROVIDER Work Phone: [facility] 03-24-2022 13:01-0400 Heart rate 70 /min Silvana Haagen MOVABLE BULKHEAD INSTALLER.ANIMAL DAYCARE PROVIDER Work Phone: [facility] 03-24-2022 13:01-0400 Respiratory rate 18 /min Silvana Ward MOVABLE BULKHEAD INSTALLER.ANIMAL DAYCARE PROVIDER Work Phone: [facility] 03-24-2022 13:01-0400 SaO2% (BldA) [Mass fraction] 96 % Silvana Ward MOVABLE BULKHEAD INSTALLER.ANIMAL DAYCARE PROVIDER Work Phone: [facility] 03-24-2022 13:01-0400 Systolic blood pressure 124 mm[Hg] Silvana Ward MOVABLE BULKHEAD INSTALLER.ANIMAL DAYCARE PROVIDER Work Phone: [facility] Encounters Encounter Date Encounter Type Care Provider Facility Start: 07-11-2025 ambulatory Silvana Ward NP Facil ity:[facility] Start: 07-03-2025 End: 07-03-2025 ambulatory Silvana Ward PERFORATING MACHINE OPERATOR [place] Start: 06-20-2025 End: 06-20-[address] Riley Swann MD -[facility] Work Phone: Start: 06-20-2025 End: 06-20-2025 ambulatory Silvana Ward PERFORATING MACHINE OPERATOR Facility[place] Start: 06-13-2025 End: 06-13-2025 Patient encounter procedure Sheila Serra PA-C -[facility] Work Phone: Start: 06-13-2025 End: 06-13-2025 ambulatory Silvana Ward PERFORATING MACHINE OPERATOR-C Work Phone: -[facility] Start: 06-08-2025 End: 06-08-[address] Madina Foss MD -[facility] Work Phone: Start: 06-08-2025 End: 06-08-2025 ambulatory Silvana Ward PERFORATING MACHINE OPERATOR-C Work Phone: -[facility] Start: 06-07-2025 Non-patient / Non-visit Dr. Ashish Foss MD -[facility] Start: 06-06-2025 Non-patient / Non-visit Dr. Chelsie HILLIARD -[facility] Start: 06-06-2025 End: 06-07-2025 ambulatory Riley Swann Facility:[facility] Start: 06-06-2025 End: 06-07-2025 Evaluation and management of inpatient Dr. Riley Swann MD -[facility] Work Phone: Start: 06-06-2025 End: 06-07-2025 observation encounter Silvana Ward PERFORATING MACHINE OPERATOR-C Work Phone: -[facility] Start: 06-05-2025 Registered Recurring Harriet BERGER -Physical Therapy Work Phone: Start: 06-04-2025 End: 06-04-[address] Riley Swann MD -[facility] Work Phone: Start: 06-04-2025 End: 06-04-2025 ambulatory Silvana Ward PERFORATING MACHINE OPERATOR-C Work Phone: -[facility] Start: 06-01-2025 Registered Recurring Harriet BERGER -Physical Therapy Work Phone: Start: 06-01-2025 End: 06-01-2025 Patient encounter procedure Silvana Ward PERFORATING MACHINE OPERATOR-C -Outpatient Breast Imaging Work Phone: Start: 06-01-2025 End: 06-01-2025 ambulatory Silvana Ward PERFORATING MACHINE OPERATOR Facility:[facility] Start: 05-29-2025 ambulatory Riley Swann Facility :[facility] Start: 05-29-2025 Non-patient / Non-visit Dr. Chelsie HILLIARD -[facility] Start: 05-29-2025 End: 05-29-2025 Admission to same day surgery center Dr. Riley Swann MD -[facility] Start: 05-29-2025 End: 05-29-2025 ambulatory Silvana Ward PERFORATING MACHINE OPERATOR-C Work Phone: -[facility] Start: 05-28-2025 Registered Recurring Harriet BERGER -Physical Therapy Work Phone: Start: 05-25-2025 End: 05-25-[address] Riley Swann MD -[facility] Work Phone: Start: 05-25-2025 End: 05-25-2025 ambulatory Silvana Ward PERFORATING MACHINE OPERATOR-C Work Phone: -[facility] Start: 04-13-2025 End: 04-16-2025 Telephone encounter Silvana Ward APRN.ANIMAL DAYCARE PROVIDER Work Phone: [facility] [place] Comment on above: Insurance Authorizat ion Start: 04-10-2025 End: 04-10-2025 ambulatory Silvana Ward MOVABLE BULKHEAD INSTALLER.ANIMAL DAYCARE PROVIDER Work Phone: [facility] [place] Comment on above: The shot Start: 04-05-2025 End: 04-05-2025 Admission to same day surgery center Dr. Jacinto Smith DO -[facility] Start: 04-05-2025 End: 04-05-2025 ambulatory Silvana Ward PERFORATING MACHINE OPERATOR-C Work Phone: -[facility] Day [facility] Start: 03-19-2025 Encounter for other preprocedural examination Jacinto Smith [facility] Start: 03-13-2025 End: 03-13-2025 Patient encounter procedure Silvana Ward APRN.CNP Work Phone: [facility] [place] Comment on above: Routine physical exa mination [...] Start: 03-13-2025 End: 03-13-2025 ambulatory SILVANA WARD Facility:[facility] Start: 03-13-2025 End: 03-13-2025 Physical examination Silvana Ward APRN.ANIMAL DAYCARE PROVIDER Work Phone: [facility] Start: 03-09-2025 Registered Referred HEALTH RIS K ASSESSMENT -Employee Health Start: 03-09-2025 ambulatory Health Risk Assessment Facility:[facility] Start: 03-08-2025 End: 03-08-2025 ambulatory Charles Sherwood Facility:[facility] Start: 03-08-2025 End: 03-08-2025 Non-patient / Non-visit Dr. Charles Sherwood MD -[facility] Work Phone: Start: 03-08-2025 End: 03-08-2025 ambulatory Silvana Sylvia PERFORATING MACHINE OPERATOR-C Work Phone: -Pulmonary Services/Neurology Start: 03-08-2025 End: 03-08-[address] Jacinto Smith DO -Pulmonary Services/Neurology Work Phone: Start: 03-08-2025 End: 03-08-2025 ambulatory Jacinto Smith Facility:[facility] Start: 02-27-2025 Non-patient / Non-visit Dr. Theo Duggan MD -[facility] Work Phone: Start: 01-30-2025 ambulatory Gus Wen Facility :[facility] Start: 12-22-2024 End: 12-22-[address] Riley Swann MD -[facility] Work Phone: Start: 12-22-2024 End: 12-22-2024 ambulatory Riley Swann Facility:[facility] Start: 12-20-2024 Encounter for genera l adult medical examination without abnormal findings Hanna Radha [facility] Start: 12-18-2024 End: 12-18-2024 ambulatory Silvana Ward PERFORATING MACHINE OPERATOR-C Work Phone: [facility] Work Phone: Start: 12-18-2024 End: 12-18-2024 Patient encounter procedure Hannachristopher Huen PERFORATING MACHINE OPERATOR-C -Laboratory, Specimen Work Phone: Start: 12-18-2024 End: 12-18-2024 ambulatory Hanna Steger Facility:[facility] Start: 12-16-2024 End: 12-16-2024 Patient encounter procedure Hanna Garcia PERFORATING MACHINE OPERATOR-C -[facility] Work Phone: Start: 12-16-2024 End: 12-16-2024 ambulatory Hanna Radha Facility:[facility] Start: 11-26-2024 End: 11-26-2024 Patient encounter procedure Keenan Tellez PERFORATING MACHINE OPERATOR-C -[facility] Work Phone: Start: 11-26-2024 End: 11-26-2024 ambulatory Keenan Tellez PERFORATING MACHINE OPERATOR Facility:[facility] Start: 11-09-2024 End: 11-09-2024 Patient encounter procedure Gus Wen DO -[facility] Work Phone: Start: 11-09-2024 End: 11-09-2024 ambulatory Gus Wen Facility:[facility] Start: 11-04-2024 End: 11-06-2024 ambulatory Silvana Ward MOVABLE BULKHEAD INSTALLER.ANIMAL DAYCARE PROVIDER Work Phone: [facility] Medicine [place] Comment on above: 100 zoloft Start: 11-03-2024 End: 11-06-2024 Refill Jong Weems MD Work Phone: [facility] Comment on above: Refill Request Start: 10-31-2024 End: 10-31-2024 ambulatory Odessa Chu APRN.ANIMAL DAYCARE PROVIDER Work Phone: [facility] Comment on above: 100 mg Zoloft Start: 10-31-2024 End: 10-31-[address] Marty Gil MD -Occupational Therapy Work Phone: Start: 10-26-2024 End: 10-26-2024 Patient encounter procedure Desiree Lau PERFORATING MACHINE OPERATOR-C -[facility] Work Phone: Start: 10-26-2024 End: 10-26-2024 ambulatory Desiree Lau NP [place] Start: 10-19-2024 End: 10-19-[address] Jacinto Smith DO -[facility] Work Phone: Start: 10-19-2024 End: 10-19-2024 ambulatory Jacinto Smith Facility:[facility] Start: 07-26-2024 End: 07-26-2024 ambulatory Gus Wen Facility:[facility] Start: 07-18-2024 End: 07-18-2024 ambulatory Desiree Lau NP Facility:[facility] Start: 07-11-2024 End: 07-13-2024 Refill Silvana Ward APRN.ANIMAL DAYCARE PROVIDER Work Phone: [facility] Comment on above: Refill Request Start: 05-03-2024 End: 05-04-2024 Refill Silvana Ward APRN.ANIMAL DAYCARE PROVIDER Work Phone: [facility] Comment on above: Refill Request Start: 04-10-2024 End: 04-10-2024 Patient encounter procedure Sivlana Ward APRN.ANIMAL DAYCARE PROVIDER Work Phone: [facility] Comment on above: Wellness examination (Primary Dx); Prediabetes; Fatigue, unspecified type; Mass of left breast, unspecified quadrant; Adjustment reaction with anxiety and depression Start: 04-10-2024 End: 04-10-2024 Patient encounter status Silvana Sylvia MOVABLE BULKHEAD INSTALLER.ANIMAL DAYCARE PROVIDER Work Phone: [facility] Start: 04-05-2024 Chart abstracting Leander Blevins [facility] Start: 01-26-2024 Telephone encounter Silvana sheridan MOVABLE BULKHEAD INSTALLER.ANIMAL DAYCARE PROVIDER Work Phone: [facility] Start: 12-27-2023 Non-patient / Non-visit PERFORATING MACHINE OPERATOR-C Portia Ward PERFORATING MACHINE OPERATOR Work Phone: [facility] Start: 12-27-2023 End: 12-27-2023 ambulatory PERFORATING MACHINE OPERATOR-C Silvana Ward PERFORATING MACHINE OPERATOR Work Phone: [facility] Work Phone: Start: 12-27-2023 End: 12-27-2023 Patient encounter procedure PERFORATING MACHINE OPERATOR-C Silvana Ward PERFORATING MACHINE OPERATOR [facility] Start: 12-23-2023 Non-patient / Non-visit PERFORATING MACHINE OPERATOR-C Portia Ward PERFORATING MACHINE OPERATOR Work Phone: [facility] Start: 12-23-2023 End: 12-23-2023 Admission to same day surgery center PERFORATING MACHINE OPERATOR-C Silvana Ward PERFORATING MACHINE OPERATOR Work Phone: [facility]-Marketing Sales Supervisor/Special Procedures Work Phone: Start: 12-23-2023 End: 12-23-2023 ambulatory PERFORATING MACHINE OPERATOR-C Silvana Ward PERFORATING MACHINE OPERATOR Work Phone: [facility] Work Phone: Start: 12-03-2023 End: 12-03-2023 Admission to same day surgery center PERFORATING MACHINE OPERATOR-C Silvana Ward PERFORATING MACHINE OPERATOR Work Phone: [facility]-Surgical Day Care Start: 12-03-2023 End: 12-03-2023 ambulatory PERFORATING MACHINE OPERATOR-C Silvana Ward PERFORATING MACHINE OPERATOR Work Phone: [facility] Work Phone: Start: 11-25-2023 End: 11-25-2023 ambulatory PERFORATING MACHINE OPERATOR-C Silvana Underwoodfatimah PERFORATING MACHINE OPERATOR Work Phone: [facility] Work Phone: Start: 11-25-2023 End: 11-25-2023 Patient encounter procedure PERFORATING MACHINE OPERATOR-C Silvana Underwoodfatimah PERFORATING MACHINE OPERATOR Work Phone: [facility]-Laboratory Work Phone: Start: 11-16-2023 Registered Recurring PERFORATING MACHINE OPERATOR-C Tiara Underwoodfatimah PERFORATING MACHINE OPERATOR Work Phone: [facility]-Occupational Therapy Work Phone: Start: 11-05-2023 End: 11-05-2023 ambulatory PERFORATING MACHINE OPERATOR-C Silvana Underwoodfatimah PERFORATING MACHINE OPERATOR Work Phone: [facility] Work Phone: Start: 11-05-2023 End: 11-05-2023 Patient encounter procedure PERFORATING MACHINE OPERATOR-C Silvana Hafatimah PERFORATING MACHINE OPERATOR Work Phone: [facility] Work Phone: Start: 11-03-2023 Registered Recurring PERFORATING MACHINE OPERATOR-C Jennayudelka Underwoodfatimah PERFORATING MACHINE OPERATOR Work Phone: [facility]-Occupational Therapy Work Phone: Start: 09-27-2023 Registered Recurring PERFORATING MACHINE OPERATOR-C Tiara Underwoodfatimah PERFORATING MACHINE OPERATOR Work Phone: [facility]-Occupational Therapy Work Phone: Start: 09-24-2023 End: 09-24-2023 ambulatory PERFORATING MACHINE OPERATOR-C Silvana Underwoodfatimah PERFORATING MACHINE OPERATOR Work Phone: [facility] Work Phone: Start: 09-24-2023 End: 09-24-2023 Patient encounter procedure PERFORATING MACHINE OPERATOR-C Silvana Underwoodfatimah PERFORATING MACHINE OPERATOR [facility] Start: 09-17-2023 Non-patient / Non-visit PERFORATING MACHINE OPERATOR-C C eddy Ward PERFORATING MACHINE OPERATOR Work Phone: [facility] Start: 09-17-2023 End: 09-17-2023 Patient encounter procedure PERFORATING MACHINE OPERATOR-Portia Ward PERFORATING MACHINE OPERATOR Work Phone: [facility]-Cardiovascular Services Work Phone: Start: 09-15-2023 End: 09-15-2023 Patient encounter procedure PERFORATING MACHINE OPERATOR-Portia Ward PERFORATING MACHINE OPERATOR Work Phone: [facility] Orthopaedic Specia Work Phone: Start: 09-07-2023 End: 09-07-2023 Patient encounter procedure PERFORATING MACHINE OPERATOR-Portia Ward PERFORATING MACHINE OPERATOR Work Phone: [facility] Vascular Surgery Work Phone: Start: 08-06-2023 End: 08-06-[address] Jong Weems Work Phone: [facility] Work Phone: Start: 08-06-2023 End: 08-06-[address] Jong Weems Work Phone: [facility] Work Phone: Start: 08-03-2023 Telephone encounter Silvana sheridan APRN.ANIMAL DAYCARE PROVIDER Work Phone: [facility] Comment on above: Results Start: 08-03-2023 End: 08-03-[address] Jong Weems Work Phone: [facility] Work Phone: Start: 08-03-2023 End: 08-03-[address] Jong Weems Work Phone: [facility]-Laboratory Work Phone: Start: 08-02-2023 End: 08-02-2023 Office outpatient visit 25 minutes Silvana Ward APRN.ANIMAL DAYCARE PROVIDER Work Phone: [facility] Comment on above: Gross hematuria (Randi lyudmila Dx) Start: 06-22-2023 Telephone encounter Silvana sheridan APRN.ANIMAL DAYCARE PROVIDER Work Phone: [facility] Comment on above: Results Start: 06-22-2023 End: 06-22-[address] Jong Weems Work Phone: [facility]-Outpatient Pavilion Ultrasound Work Phone: Start: 05-19-2023 Telephone encounter Hari Moss PA-C Work Phone: [facility] Comment on above: 2022 Healthy Living program form Start: 05-06-2023 Telephone encounter Hari Moss PA-C Work Phone: [facility] [place] Comment on above: Appointment Start: 04-28-2023 End: 04-28-[address] Jong Weems Work Phone: [facility] Orthopaedic Specia Work Phone: Start: 04-06-2023 Chart abstracting Hari karimi PA-C Work Phone: [facility] Start: 04-06-2023 End: 04-06-2023 ambulatory [facility] Work Phone: Start: 04-06-2023 End: 04-06-2023 Patient encounter procedure Silvana Ward APRN.ANIMAL DAYCARE PROVIDER Work Phone: [facility] Comment on above: Wellness examination (Primary Dx); Adjustment reaction with anxiety and depression; Skin cancer screening; Lateral epicondylitis of both elbows; Elevated liver enzymes; Elevated fasting glucose; Visit for screening mammogram Start: 04-06-2023 End: 04-06-2023 Patient encounter status Silvana Ward APRN.ANIMAL DAYCARE PROVIDER Work Phone: [facility] Work Phone: Start: 04-01-2023 Registered Referred [facility]-Employee Health Start: 08-26-2022 Non-patient / Non-visit Dr. Josi Weems Work Phone: [facility] Start: 08-26-2022 End: 08-26-[address] Jong Weems Work Phone: [facility] Work Phone: Start: 08-26-2022 End: 08-26-[address] Jong Weems Work Phone: [facility]-Cardiovascular Services Start: 07-30-2022 End: 07-30-[address] Jong Weems Work Phone: [facility] Start: 07-20-2022 Non-patient / Non-visit Dr. Josi Weems Work Phone: [facility] Start: 06-19-2022 End: 06-19-[address] Jong Weems Work Phone: [facility] Work Phone: Start: 06-19-2022 End: 06-19-[address] Jong Weems Work Phone: [facility]-Outpatient Breast Imaging Start: 05-29-2022 Telephone encounter Hari Moss PA-C Work Phone: [facility] Comment on above: Orders Start: 05-21-2022 ambulatory Hari BERGER-C Work Phone: [facility] Comment on above: Mammogram Start: 04-23-2022 Telephone encounter Hari Moss PA-C Work Phone: [facility] Comment on above: Results (Echo ) Start: 04-20-2022 Non-patient / Non-visit Dr. Josi Weems Work Phone: [facility] Start: 04-20-2022 End: 04-20-[address] Jong Weems Work Phone: [facility] Work Phone: Start: 04-20-2022 End: 04-20-[address] Jong Weems Work Phone: [facility]-Cardiovascular Services Start: 04-10-2022 End: 04-10-2022 [facility] Start: 04-10-2022 Non-patient / Non-visit Dr. Josi Weems Work Phone: [facility] Start: 04-07-2022 Registered [facility] Start: 04-07-2022 Non-patient / Non-visit Dr. Josi Weems Work Phone: [facility] Start: 03-25-2022 Telephone encounter Hari BERGER-C Work Phone: [facility] Comment on above: Results Start: 03-24-2022 End: 03-24-2022 Patient encounter procedure Silvana Ward APRN.ANIMAL DAYCARE PROVIDER Work Phone: [facility] Comment on above: Wellness examination (Primary Dx); Palpitations; Hypertension, essential; Anxiety with depression Start: 03-24-2022 End: 03-24-2022 Patient encounter status Silvana Ward APRN.ANIMAL DAYCARE PROVIDER Work Phone: [facility] Start: 03-20-2022 Chart abstracting Hari karimi PA-C Work Phone: [facility] Start: 03-20-2022 Registered Referred [facility]-Employee Health Start: 03-18-2022 ambulatory Hari marquez PA-C Work Phone: [facility] [place] Procedures Date Procedure Procedure Detail Performing Clinician Start: 06-06-2025 Incision and drainag e of perirectal abscess Silvana Ward PERFORATING MACHINE OPERATOR-C Work Phone: Start: 06-06-2025 Estimated creatinine clearance Silvana Ward PERFORATING MACHINE OPERATOR-C Work Phone: Start: 06-06-2025 CT of pelvis with contrast Silvana Ward PERFORATING MACHINE OPERATOR-C Work Phone: Start: 06-01-2025 Screening mammography C hredwin Ward PERFORATING MACHINE OPERATOR-C Work Phone: Start: 05-29-2025 Anal fissurectomy David Ward PERFORATING MACHINE OPERATOR-C Work Phone: Start: 04-05-2025 Arthroscopy of knee Jenna Ward PERFORATING MACHINE OPERATOR-C Work Phone: Start: 03-09-2025 Serum inorganic phos phate measurement Silvana Ward PERFORATING MACHINE OPERATOR-C Work Phone: Start: 03-09-2025 Urnls dip stick/tabl et reagent auto microscopy Silvana aWrd PERFORATING MACHINE OPERATOR-C Work Phone: Start: 10-19-2024 MRI of joint of lowe r extremity Silvana Underwoodfatimah PERFORATING MACHINE OPERATOR-C Work Phone: Start: 04-04-2024 CBCDIF (EXTERNAL) [facility] P rovider Start: 04-04-2024 Comprehensive metabo lic 2000 panel - Serum or Plasma [facility] Provider Start: 04-04-2024 Lipid panel [facility] Provid er Start: 04-04-2024 Lipid 1996 panel - S isatu or Plasma Leander Swanson BRIDGE TOLL COLLECTOR Start: 12-03-2023 Fluoroscopic guidance N P-C Silvana Ward PERFORATING MACHINE OPERATOR Work Phone: Start: 12-03-2023 Cystoscopy and retro grade pyelography PERFORATING MACHINE OPERATOR-C Silvana Hafatimah PERFORATING MACHINE OPERATOR Work Phone: Start: 11-25-2023 Urine culture PERFORATING MACHINE OPERATOR-C Tiara Underwoodfatimah PERFORATING MACHINE OPERATOR Work Phone: Start: 11-05-2023 CT of abdomen and pe lvis without contrast PERFORATING MACHINE OPERATOR-C Silvana Underwoodfatimah PERFORATING MACHINE OPERATOR Work Phone: Start: 09-24-2023 Urine culture PERFORATING MACHINE OPERATOR-C Jennai antonio Ward PERFORATING MACHINE OPERATOR Work Phone: Start: 08-06-2023 Computed tomography of abdomen and pelvis with contrast Dr. Jong Weems Work Phone: Start: 08-03-[address] Scott Weems Work Phone: Start: 08-02-2023 Urnls dip stick/tabl et rgnt auto w/o microscopy Silvana Ward MOVABLE BULKHEAD INSTALLER.ANIMAL DAYCARE PROVIDER Work Phone: Start: 06-22-2023 Screening mammography Elvis [...] P,Tdap,Td Vaccine (4 - Td or Tdap) [facility] Start: 04-04-2029 Lipid panel Lipid Screening [facility] Start: 04-04-2027 Diabetes Screening Diabetes Screenin g [facility] Start: 03-20-2027 Lipid 1996 panel - S isatu or Plasma Lipid Screening [facility] Start: 03-20-2027 Lipid panel Lipid Screening [facility] Start: 03-20-2027 LIPID SCREEN LIPID SCREEN [facility] Start: 07-29-2026 Colonoscopy COLONOSCOPY [facility] Start: 07-29-2026 COLORECTAL CANCER SCREENING COLORECTAL CANCER SCREENING [facility] Start: 07-29-2026 Screening for malign ant neoplasm of colon [facility] Start: 04-06-2026 DIABETES SCREEN DIABETES SCREEN [facility] Start: 04-06-2026 Diabetes Screening Diabetes Screenin g [facility] Start: 03-13-2026 Annual PCP Team Shake Cutter nicky Disease Visit Annual P[facility] [facility] Start: 03-13-2026 Diabetic foot examination Diabetic F oot Exam [facility] Start: 07-11-2025 Registered Recurring Registered Recu rring -Physical Therapy Work Phone: Start: 07-03-2025 End: 07-03-2025 Patient encounter procedure Status post incision and drainage -[facility] Work Phone: Start: 06-26-2025 Registered Recurring Registered Recu rring -Physical Therapy Work Phone: Start: 06-22-2025 Registered Recurring Registered Recu rring -Physical Therapy Work Phone: Start: 06-20-2025 End: 06-20-2025 Patient encounter procedure Status post incision and drainage -[facility] Work Phone: Start: 06-13-2025 End: 03-13-2026 Hemoglobin A1c in Blood HEMOGLOBIN A1C Lab Routine Type 2 diabetes mellitus without complication, without long-term current use of insulin (HCC) Expected: 06/13/2025, Expires: 03/13/2026 [facility] Comment on above: Expected: 06/13/2025 , Expires: 03/13/2026 Start: 06-13-2025 End: 06-13-2025 Patient encounter procedure Status post incision and drainage -[facility] Work Phone: Start: 06-07-2025 Patient discharge [facility] Start: 06-06-2025 Anesthesia anorectal procedure ANESTH ANORECTAL SURGERY [facility] Start: 06-06-2025 Incision and drainag e of perirectal abscess INCISION OF RECTAL ABSCESS [facility] Start: 06-06-2025 Following clinical p athway protocol [facility] Start: 06-06-2025 Ambulation without limitation [facility] Start: 06-06-2025 Assessment of risk o f venous thromboembolism [facility] Start: 06-06-2025 Insertion of cathete r into peripheral vein [facility] Start: 06-06-2025 Providing care accor ding to standard [facility] Start: 06-06-2025 [facility] Start: 06-06-2025 Verification routine [facility] Start: 06-06-2025 Admission procedure [facility] Start: 06-06-2025 Hospital admission, emergency, from emergency room, medical nature [facility] Start: 05-29-2025 Patient discharge [facility] Start: 05-29-2025 Anesthesia anorectal procedure ANESTH ANORECTAL SURGERY [facility] Start: 05-29-2025 Injection aa&/strd pudendal nerve NJX AA&/STRD PUDENDAL NERVE [facility] Start: 05-29-2025 Rectal examination SURG DX EXAM ANOR ECTAL [facility] Start: 05-29-2025 Sphincterotomy anal division sphincter spx INCISION OF ANAL SPHINCTER [facility] Start: 05-29-2025 Non-patient / Non-visit Non-patient / Non-visit -[facility] Start: 05-29-2025 Anal fissurectomy Fissurectomy (Not Applicable) [facility] Start: 05-29-2025 End: 05-29-2025 Admission to same day surgery center Anal fissure [facility] Start: 05-28-2025 Registered Recurring Registered Recu rring -Physical Therapy Work Phone: Start: 04-30-2025 Influenza vaccination Influenza Vacc ine (#1) [facility] Start: 04-10-2025 Annual PCP Team Shake Cutter nicky Disease Visit Annual PCP Team Chronic Disease Visit [facility] Start: 04-10-2025 BP Controlled (<130/80) BP Controlle d (<130/80) [facility] Start: 04-05-2025 Anes open/surg arthroscopic proc knee joint nos ANESTH KNEE JOINT SURGERY [facility] Start: 04-05-2025 Arthrs kne surg w/meniscectomy med/lat w/shvg KNEE ARTHROSCOPY/SURGERY [facility] Start: 04-05-2025 Application of ice c ollar, cap or bag [facility] Start: 04-05-2025 Catheterization of vein [facility] Start: 04-05-2025 Following clinical p athway protocol [facility] Start: 04-05-2025 Patient discharge [facility] Start: 04-05-2025 Procedure discontinued [facility] Start: 04-05-2025 Taking patient vital signs [facility] Start: 04-05-2025 Vital signs measurements [facility] Start: 04-05-2025 [facility] Start: 04-05-2025 Medication education [facility] Start: 2025 Shingrix Vaccine (1 of 2) Armando grix Vaccine (1 of 2) [facility] Start: 03-13-2025 End: 03-13-2026 Microalbumin/Creatinine [Mass Ratio] in Urine ALBUMIN/CREATININE RATIO, URINE Lab Routine Type 2 diabetes mellitus without complication, without long-term current use of insulin (HCC) Expected: 03/13/2025, Expires: 03/13/2026 [facility] Work Phone: Comment on above: Expected: 03/13/2025 , Expires: 03/13/2026 Start: 01-28-2025 Urine microalbumin profile [facility] Start: 08-02-2024 Annual PCP Team Shake Cutter nicky Disease Visit Annual PCP Team Chronic Disease Visit [facility] Start: 06-22-2024 Mammography Mammogram Screening [facility] Start: 06-22-2024 Screening for malign ant neoplasm of breast Mammogram Screening [facility] Start: 04-30-2024 Covid-19 Vaccine ( season) Covid-19 Vaccine ( season) [facility] Start: 04-30-2024 Covid-19 Vaccine ( season) Covid-19 Vaccine () [facility] Start: 04-30-2024 Influenza vaccination Influenza Vacc ine (#1) [facility] Start: 04-10-2024 End: 07-10-2024 Hemoglobin A1c in Blood HEMOGLOBIN A1C Lab Routine Prediabetes Expected: 04/10/2024, Expires: 07/10/2024 [facility] Work Phone: Comment on above: Expected: 04/10/2024 , Expires: 07/10/2024 Start: 04-10-2024 End: 07-10-2024 Thyrotropin [Units/volume] in Serum or Plasma THYROID STIMULATING HORMONE Lab Routine Fatigue, unspecified type Expected: 04/10/2024, Expires: 07/10/2024 [facility] Comment on above: Expected: 04/10/2024 , Expires: 07/10/2024 Start: 04-06-2024 ANNUAL PCP TEAM SAWING AND ASSEMBLY SUPERVISOR NICKY DISEASE VISIT ANNUAL PCP TEAM CHRONIC DISEASE VISIT [facility] Start: 12-23-2023 Patient discharge [facility] Start: 12-03-2023 Anes transurethral w/urethrocystoscopy nos ANESTH BLADDER SURGERY [facility] Start: 12-03-2023 Cysto w/urtroscopy&/pyeloscopy dx CYSTOURETERO & OR PYELOSCOPE [facility] Start: 12-03-2023 Patient discharge [facility] Start: 10-07-2023 Hemoglobin A1c measurement HbA1C [facility] Start: 09-15-2023 Patient referral [facility] Work Phone: Start: 08-02-2023 End: 11-01-2023 Bacteria identified in Urine by Culture URINE CULTURE Microbiology Routine Gross hematuria Expected: 08/02/2023, Expires: 11/01/2023 [facility] Work Phone: Comment on above: Expected: 08/02/2023 , Expires: 11/01/2023 Start: 08-02-2023 End: 11-01-2023 Basic metabolic 2000 panel - Serum or Plasma BASIC METABOLIC PNL Lab Routine Gross hematuria Expected: 08/02/2023, Expires: 11/01/2023 [facility] Work Phone: Comment on above: Expected: 08/02/2023 , Expires: 11/01/2023 Start: 08-02-2023 End: 11-01-2023 CBC W Auto Differential panel - Blood CBC + DIFF Lab Routine Gross hematuria Expected: 08/02/2023, Expires: 11/01/2023 [facility] Work Phone: Comment on above: Expected: 08/02/2023 , Expires: 11/01/2023 Start: 08-02-2023 End: 11-01-2023 Urinalysis complete panel - Urine URINALYSIS, WITH MICROSCOPIC Lab Routine Gross hematuria Expected: 08/02/2023, Expires: 11/01/2023 [facility] Work Phone: Comment on above: Expected: 08/02/2023 , Expires: 11/01/2023 Start: 06-19-2023 Mammography [facility] Start: 04-30-2023 Covid-19 Vaccine ( season) Covid-19 Vaccine ( season) [facility] Start: 04-30-2023 Influenza vaccination [facility] Start: 04-29-2023 DIABETES SCREEN DIABETES SCREEN [facility] Start: 04-06-2023 End: 06-06-2023 Acute hepatitis 2000 panel - Serum HEP ACUTE PANEL BL Lab Routine Elevated liver enzymes Expected: 04/06/2023, Expires: 06/06/2023 [facility] Work Phone: Comment on above: Expected: 04/06/2023 , Expires: 06/06/2023 Start: 04-06-2023 End: 06-06-2023 Hemoglobin A1c in Blood HGB A1C Lab Routine Elevated fasting glucose Expected: 04/06/2023, Expires: 06/06/2023 [facility] Work Phone: Comment on above: Expected: 04/06/2023 , Expires: 06/06/2023 Start: 04-06-2023 End: 06-06-2023 Hepatic function 2000 panel - Serum or Plasma HEPATIC FUNCTION PNL Lab Routine Elevated liver enzymes Expected: 04/06/2023, Expires: 06/06/2023 [facility] Work Phone: Comment on above: Expected: 04/06/2023 , Expires: 06/06/2023 Start: 03-24-2023 ANNUAL PCP TEAM SAWING AND ASSEMBLY SUPERVISOR NICKY DISEASE VISIT ANNUAL PCP TEAM CHRONIC DISEASE VISIT [facility] Start: 03-20-2023 Hepatitis B surface antibody level LDL Cholesterol [facility] Start: 04-30-2022 Influenza vaccination INFLUENZA (#1) [facility] Start: 04-08-2022 ANNUAL PCP TEAM SAWING AND ASSEMBLY SUPERVISOR NICKY DISEASE VISIT ANNUAL PCP TEAM CHRONIC DISEASE VISIT [facility] Start: 03-24-2022 End: 05-24-2022 Magnesium [Mass/volume] in Serum or Plasma MAGNESIUM BLD Lab Routine Palpitations Expected: 03/24/2022, Expires: 05/24/2022 [facility] Work Phone: Comment on above: Expected: 03/24/2022 , Expires: 05/24/2022 Start: 03-24-2022 End: 05-24-2022 Thyrotropin [Units/volume] in Serum or Plasma TSH BLD Lab Routine Palpitations Expected: 03/24/2022, Expires: 05/24/2022 [facility] Work Phone: Comment on above: Expected: 03/24/2022 , Expires: 05/24/2022 Start: 03-24-2022 End: 05-24-2022 Thyroxine (T4) free [Mass/volume] in Serum or Plasma T4 FREE/FREE THYROX Lab Routine Palpitations Expected: 03/24/2022, Expires: 05/24/2022 [facility] Work Phone: Comment on above: Expected: 03/24/2022 , Expires: 05/24/2022 Start: 06-12-2021 Mammography MAMMOGRAM [facility] Start: 05-20-2021 BP CONTROLLED (<130/80) BP CONTROLLE D (<130/80) [facility] Start: 2020 COLOGUARD (FIT-DNA) COLOGUARD (FIT-D NA) [facility] Start: [address] COLONOGRAPHY [facility] Start: 2020 FECAL OCCULT BLOOD FECAL OCCULT BLOO D [facility] Start: 2020 Screening for malign ant neoplasm of colon [facility] Start: 2020 SIGMOIDOSCOPY SIGMOIDOSCOPY [facility] Start: 10-27-2017 Glaucoma screening Dilated Retinal E xam [facility] Start: 1994 Hepatitis B Vaccine (1 of 3 - 19+ 3-dose series) Hepatitis B Vaccine (1 of 3 - 19+ 3-dose series) [facility] Start: 1994 Pneumococcal vaccination Pneum ococcal Vaccine (1 of 2 - PCV) [facility] Start: 1994 Pneumococcal Vaccine : 50+ (1 of 2 - PCV) Pneumococcal Vaccine: 50+ (1 of 2 - PCV) [facility] Start: 1993 HEPATITIS C SCREENING HEPATITIS C SC DEMAR [facility] Start: 1985 Hepatitis B screening Urine Albumin:Creatinine Ratio [facility] Start: 1975 COVID-19 VACCINE (#1) COVID-19 VACCI NE (#1) [facility] Start: 1975 HEPATITIS B (1 of 3 - 3-dose series) HEPATITIS B (1 of 3 - 3-dose series) [facility] Start: 1975 Hepatitis B Vaccine (1 of 3 - 3-dose series) Hepatitis B Vaccine (1 of 3 - 3-dose series) [facility] End: 08-31-2024 Ct abdomen & pelvis w/o contrst 1/> body re CT UROGRAM WO/W IVCON Radiology ABNER Gross hematuria 1 Occurrences starting 08/02/2023 until 08/31/2024 [facility] Work Phone: Comment on above: 1 Occurrences starti ng 08/02/2023 until 08/31/2024 End: 03-24-2023 ECG COMPLETE ECG COMPLETE ECG Routine Palpitations 1 Occurrences starting 03/24/2022 until 03/24/2023 [facility] Work Phone: Comment on above: 1 Occurrences starti ng 03/24/2022 until 03/24/2023 End: 03-24-2023 Echocardiography ECHO Cardiology Routine Palpitations 1 Occurrences starting 03/24/2022 until 03/24/2023 [facility] Work Phone: Comment on above: 1 Occurrences starti ng 03/24/2022 until 03/24/2023 EVENT MONITOR EVENT MONITOR Cardiology Routine Palpitations Ordered: 03/24/2022 [facility] Work Phone: Comment on above: Ordered: 03/24/2022 End: 04-10-2025 HOME SLEEP APNEA TEST (HSAT) HOME SLEEP APNEA TEST (HSAT) Procedures Routine Fatigue, unspecified type 1 Occurrences starting 04/10/2024 until 04/10/2025 [facility] Comment on above: 1 Occurrences starti ng 04/10/2024 until 04/10/2025 End: 05-05-2024 ROCIO SCREENING W KASSIDY ROCIO SCREENING W KASSIDY Radiology Routine Visit for screening mammogram 1 Occurrences starting 04/06/2023 until 05/05/2024 [facility] Work Phone: Comment on above: 1 Occurrences starti ng 04/06/2023 until 05/05/2024 End: 05-10-2025 MG Breast - bilateral Diagnostic ROCIO DIAGNOSTIC BILATERAL Radiology Routine Mass of left breast, unspecified quadrant 1 Occurrences starting 04/10/2024 until 05/10/2025 [facility] Comment on above: 1 Occurrences starti ng 04/10/2024 until 05/10/2025 Patient referral [facility] Work Phone: End: 04-17-2023 Screening mammography bi 2-view breast inc cad ROCIO SCREENING Radiology Routine Encounter for screening mammogram for breast cancer 1 Occurrences starting 03/18/2022 until 04/17/2023 [facility] Work Phone: Comment on above: 1 Occurrences starti ng 03/18/2022 until 04/17/2023 End: 05-05-2024 US ABD RIGHT UPPER QUADRANT US ABD RIGHT UPPER QUADRANT Radiology Routine Elevated liver enzymes 1 Occurrences starting 04/06/2023 until 05/05/2024 [facility] Work Phone: Comment on above: 1 Occurrences starti ng 04/06/2023 until 05/05/2024 End: 05-10-2025 US Breast - left limited US BREAST LTD LEFT Radiology Routine Mass of left breast, unspecified quadrant 1 Occurrences starting 04/10/2024 until 05/10/2025 [facility] Comment on above: 1 Occurrences starti ng 04/10/2024 until 05/10/2025 XR Chest PA and Lateral [facility] Immunizations Immunization Date Immunization Notes Care Provider Sinan ames 07-06-2024 influenza, seasonal, injectable, preservative free Silvana Ward PERFORATING MACHINE OPERATOR-C Work Phone: [facility] 07-06-2024 influenza virus vaccine, unspecified formulation Silvana Ward MOVABLE BULKHEAD INSTALLER.ANIMAL DAYCARE PROVIDER Work Phone: [facility] 07-15-2023 influenza, injectabl e, quadrivalent, preservative free Dr. Jong Weems Work Phone: [facility] 07-15-2023 influenza virus vaccine, unspecified formulation Leander Swanson LPN [facility] 06-22-2022 influenza, injectabl e, quadrivalent, preservative free Dr. Jong Weems Work Phone: [facility] 06-22-2022 influenza, seasonal, injectable Dr. Jong Weems Work Phone: [facility] 06-22-2022 influenza virus vaccine, unspecified formulation NA Moss PA-C Work Phone: [facility] 06-17-2021 influenza, injectabl e, quadrivalent, preservative free Dr. Jong Weems Work Phone: [facility] 06-17-2021 influenza, seasonal, injectable [facility] 09-10-2020 tetanus toxoid, redu judy diphtheria toxoid, and acellular pertussis vaccine, adsorbed [facility] 07-04-2020 influenza, injectabl e, quadrivalent, preservative free Dr. Jong Weems Work Phone: [facility] 07-04-2020 influenza, seasonal, injectable [facility] 06-13-2019 influenza, seasonal, injectable NA Moss PA-C Work Phone: [facility] 05-25-2019 influenza, injectabl e, quadrivalent, preservative free Dr. Jong Weems Work Phone: [facility] 05-25-2019 influenza, seasonal, injectable [facility] 06-13-2018 influenza, injectabl e, quadrivalent, preservative free Dr. Jong Weems Work Phone: [facility] 06-13-2018 influenza, seasonal, injectable [facility] 07-26-2017 Influenza virus vaccine [facility] 06-05-2016 influenza virus vaccine, unspecified formulation NA Moss PA-C Work Phone: [facility] 06-12-2015 influenza virus vaccine, unspecified formulation NA Moss PA-C Work Phone: [facility] 01-28-2015 tetanus toxoid, redu judy diphtheria toxoid, and acellular pertussis vaccine, adsorbed NA Moss PA-C Work Phone: [facility] Payers Date Payer Category Payer Self-pay [id number] 2022 Private Health Insurance [id number] 2022 Unknown [id number] 2017 Unknown MMO MMO TPA [id number] 2017-Present [address] [place] [address] PPO [id number] 2017 Unknown MMO MMO TPA [id number] 2017-Present [address] [place] [address] PPO [id number] Unknown [facility] [id number] Unknown [id number] 62 Unknown [id number] 2.16.840.1.324513.3.579.2.4 62 Unknown [id number] 2.16.840.1.281073.3.579.2.4 62 Unknown [id number] 2.16.840.1.684687.3.579.2.4 62 Unknown [id number] 2.16.840.1.269613.3.579.2.4 62 Unknown [id number] 2.16.840.1.950877.3.579.2.4 62 Unknown [id number] 2.16.840.1.286467.3.579.2.4 62 Unknown [id number] 2.16.840.1.548529.3.579.2.4 62 Unknown [id number] 2.16.840.1.523753.3.579.2.4 62 Unknown [id number] 2.16.840.1.655929.3.579.2.4 62 Unknown [id number] 2.16.840.1.990839.3.579.2.4 62 Unknown [id number] 2.16.840.1.265979.3.579.2.4 62 Unknown [id number] 2.16.840.1.656434.3.579.2.4 62 Unknown [id number] 2.16.840.1.133323.3.579.2.4 62 Unknown [id number] 2.16.840.1.383767.3.579.2.4 62 Unknown [id number] 2.16.840.1.208743.3.579.2.4 62 Unknown [id number] 2.16.840.1.298077.3.579.2.4 62 Unknown [id number] 2.16.840.1.879418.3.579.2.4 62 Unknown [id number] 2.16.840.1.449702.3.579.2.4 62 Unknown [id number] 2.16.840.1.904701.3.579.2.4 62 Unknown [id number] 2.16.840.1.851009.3.579.2.4 62 Unknown [id number] 2.16.840.1.238066.3.579.2.4 62 Unknown [id number] 2.16.840.1.002953.3.579.2.4 62 Unknown [id number] 2.16.840.1.342637.3.579.2.4 62 Unknown [id number] 2.16.840.1.204874.3.579.2.4 62 Unknown [id number] 2.16.840.1.896307.3.579.2.4 62 Unknown [id number] 2.16.840.1.014543.3.579.2.4 62 Unknown [id number] 2.16.840.1.407128.3.579.2.4 62 Social History Date Type Detail Facility Start: 05-24-2013 End: 06-08-2025 Tobacco smoking status NHIS Never smoked tobacco [facility] Start: 05-24-2013 Tobacco use and exposure Smokeless tobacco non-user [facility] Start: 09-07-2021 End: 03-13-2025 Alcohol intake Current non-drinker of alcohol (finding) [facility] Start: 04-06-2021 End: 03-24-2022 History SDOH Alcohol Frequency 2 [facility] Start: 04-06-2021 End: 03-24-2022 History SDOH Alcohol Std Drinks 1 [facility] Start: 04-06-2021 History SDOH Social Connections Phone 5 [facility] Start: 04-06-2021 History SDOH Social Connections Restorationism 3 [facility] Start: 04-06-2021 History SDOH Social Connections Living 8 [facility] Start: 01-02-2020 Education 16 [facility] Start: 1975 Sex Assigned At Female [facility] Start: 10-22-2021 End: 12-23-2023 Tobacco smoking status NHIS Unknown if ever smoked [facility] Start: 04-06-2021 End: 08-02-2023 History of Social function [facility] Start: 04-06-2021 End: 08-02-2023 Social connection and isolation panel [facility] Do you belong to any clubs or organizations such as anabaptism groups, unions, fraternal or athletic groups, or school groups? No [facility] Are you now , , , , never or living with a partner? Living with partner [facility] How often to you hav e a drink containing alcohol? Monthly or less [facility] How many standard drinks containing alcohol do you have on a typical day? 1 or 2 [facility] How often do you hav e 6 or more drinks on 1 occasion? Never [facility] Start: 10-12-2012 How hard is it for y ou to pay for the very basics like food, housing, medical care, and heating Not hard at all [facility] Do you feel stress - tense, restless, nervous, or anxious, or unable to sleep at night because your mind is troubled all the time - these days [OSQ] Not at all [facility] (I/We) worried sadia er (my/our) food would run out before (I/we) got money to buy more. Never true [facility] Start: 04-17-2020 Gender identity Identifies as female gender (finding) [facility] Start: 04-17-2020 Sexual orientation Heterosexual (rodger berumen) [facility] Start: 08-30-2017 Occasional [facility] Start: 08-30-2017 None [facility] Start: 08-30-2017 Alone [facility] Do you feel stress - tense, restless, nervous, or anxious, or unable to sleep at night because your mind is troubled all the time - these days [OSQ] Only a little [facility] Start: 12-20-2024 Sex Female (finding) [facility] NEGATED: Highlighted row [facility] Medical Equipment Procedure Code Equipment Code Equipment Origin al Text Equipment Identifier Dates Arthroscopy, knee Tendon/ligamen t bone anchor, non-bioabsorbable [id number] FDA Start: 04-05-2025 Appendectomy, laparoscopic 45mm Standard Reload FDA Start: 09-03-2021 Appendectomy, laparoscopic 45mm Vascular Reload FDA Start: 09-03-2021 Appendectomy, laparoscopic Ligation clip, synthetic polymer, non-bioabsorbable [id number] FDA Start: 09-03-2021 Appendectomy, laparoscopic 45mm Standard [...] Assessment Result Facility 06-07-2025 Functional status Ambulates [facility] Work Phone: 03-13-2025 Total score [AUDIT-C] 1 03/13/20 7:57 AM EDT User, Carlos [facility] 03-13-2025 How often to you hav e a drink containing alcohol? Monthly or less 03/13/2025 7:57 AM EDT User, Carlos Monthly or less [facility] 03-13-[address] inks containing alcohol do you have on a typical day? 1 or 2 03/13/2025 7:57 AM EDT User, Rumat 1 or 2 [facility] 03-13-2025 How often do you hav e 6 or more drinks on 1 occasion? Never 03/13/2025 7:57 AM EDT User, Rumat Never [facility] 03-08-2015 Are you deaf, or do you have serious difficulty hearing No 03/08/2015 8:42 AM Joanne Quan Ma No [facility] 03-08-2015 Are you blind, or do you have serious difficulty seeing, even when wearing glasses No 03/08/2015 8:42 AM Joanne Quan Ma No [facility] 03-08-2015 Do you have serious difficulty walking or climbing stairs No 03/08/2015 8:42 AM Joanne Quan Ma No [facility] 03-08-2015 Do you have difficul ty dressing or bathing No 03/08/2015 8:42 AM Joanne Quan Ma No [facility] 03-08-2015 Because of a physica l, mental, or emotional condition, do you have difficulty doing errands alone such as visiting a physician's office or shopping No 03/08/2015 8:42 AM EDT Joanne Uriostegui Ma [facility] Mental Status Date Assessment Result Facility 06-07-2025 Cognitive function Level Of Cons ciousness Awake [facility] Work Phone: 06-07-2025 Cognitive function Voice/Name [facility] Work Phone: 05-29-2025 Cognitive function Level Of Cons ciousness Drowsy [facility] Work Phone: 04-05-2025 Cognitive function Voice/Name [facility] Work Phone: 12-03-2023 Cognitive function Voice/Name;Touch/Shaki ng [facility] Work Phone: 03-08-2015 Because of a physica l, mental, or emotional condition, do you have serious difficulty concentrating, remembering, or making decisions No 03/08/2015 8:42 AM EDT Joanne Uriostegui Ma [facility] Clinical Notes 03-08-2015 to 06-20-2025 Note Date & Type Note Facility 06-20-2025 Progress note [facility] 06-20-2025 Progress note Note Date/Time June 20, 2025 3:14pm [facility] [address] [place] [address]. [address] [place] [address] OFFICE VISIT Date of Service: 06/20/25 MR#: [id number] Acct: [id number] Name: ELIZABETH BABB Rep #: [id number] : 1975 Provider: Dr. 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 [place] [address] OFFICE VISIT Date of Service: 06/13/25 MR#: [id number] Acct: [id number] Name: ELIZABETH BABB Rep #: [id number] : 1975 Provider: KAVON Serra Age/Sex: 50/F Location: [facility] Status: Signed Intake Vital Signs 05/29/25 12:23 [...] Diagnoses Status post incision and drainage Z98.890 [facility] Medical History (Updated 06/12/25 @ 00:00 by [...] Buitrago Signature: Date (if applicable) CC: ~ [facility] [id number] Progress [facility] [address] [place] [address] OFFICE VISIT Date of Service: 06/08/25 MR#: [id number] Acct: [id number] Name: ELIZABETH BABB Rep #: [id number] : 1975 Provider: Dr. Lauren Foss MD Age/Sex: 50/F [place] [facility] Status: Signed Intake Vital Signs 06/06/25 09:48 [...] Diagnoses Status post incision and drainage Z98.890 [facility] Medical History Normal Holter exam Anal [...] at this time. Madina Foss M.D. Pager: [phone] [facility] [address] [place] [address], [facility], [address] [place] [address] Office: [phone] Plan Details Goals & Barriers: Goals Decrease spasm Improve ROM Decrease pain Barriers Repetitive bending/lifting 06/11/25 0954 am MD> Date _ Madina Foss MD Cosigner Signature: Date (if applicable) CC: KENISHA Ward ~ [facility]10-10-2025 Progress note Author Madina Foss [facility] Note Date/Time June 08, 2025 3 :23pm [facility] [address] [place] [address]. [address] [place] [address] OFFICE VISIT Date of Service: 06/08/25 MR#: [id number] Acct: [id number] Name: ELIZABETH BABB Rep #: [id number] : 1975 Provider: Dr. Lauren Foss MD Age/Sex: 50/F Location: [facility] Status: Signed Intake Vital Signs 06/06/25 09:48 [...] sertraline 100 mg tablet 100 mg PO [facility] mental health 08/30/17 06/08/25 History lisinopril 10 [...] Diagnoses Status post incision and drainage Z98.890 [facility] Medical History Normal Holter exam Anal [...] at this time. Madina Foss M.D. Pager: [phone] [facility] [address] [place] [address] [place] [address] Office: [phone] Plan Details Goals & Barriers: Goals Decrease spasm Improve ROM Decrease pain Barriers Repetitive bending/lifting 06/11/25 0954 <Electronically signed by Madina Mendoza am, MD> Date _ Madina Foss MD Cosigner Signature: Date (if applicable) CC: PERFORATING MACHINE OPERATOR-C Silvana Ward ~ [facility] Work Phone: 1(437) 776-706210-09-2025 Consult note [facility] Medical Records Department [address] [place] [address] Counseling Note - Pharmacy 06/07/25 1322 MR#: [id number] Acct: [id number] Name: ELIZABETH BABB Rep #:[id number] : 1975 50 From: Ethan johnson PCP: Silvana Ward, KENISHA Status:ADM I NO Y Location: [place] [address] Pharmacy [place] Med Reconciliation Pharmacy Service has performed discharge [...] Signature (if applicable): Date CC: ~ Signed [facility]10-09-2025 Discharge summary Author Madina [facility] Note Date/Time June 07, 2025 11 :42am [facility] Medical Records Department [address] [place] [address] Instructions for Home/Discharge Instructions 06/07/25 1139 MR#: [id number] Acct: [id number] Name: ELIZABETH BABB Rep #:[id number] : [...] 5 PM and on the weekends call [phone] with any concerns. Test Results: Test results [...] Referrals / Follow Up: Silvana Ward NP, PERFORATING MACHINE OPERATOR-C [Primary Care Provider, Medical] Disposition Disposition (needs filled in before D/C Order can be placed): Home, Self Care 06/07/25 1142<Electronically signed by Madina Foss MD>Madina Foss MD CC: PERFORATING MACHINE OPERATOR-C Silvana Ward; Dr. Riley Swann MD ~ Signed [facility] Work Phone: 1(640) 740-225710-09-2025 Progress note Author [facility] Note Date/Time June 07, 2025 11 :39am [facility] Medical Records Department [address] [place] [address] Progress Note - Surgery 06/07/25 0735 MR#: [id number] Acct: [id number] Name: ELIZABETH BABB Rep #:[id number] : 1975 50 From: Madina Foss MD PCP: KENISHA Pham Status:ADM I NO [id number] Subjective Subjective Patient tolerating diet. Pain controlled. [...] Will DC home. Madina Foss M.D. Pager: [phone] [facility] [address] [place] [address], [facility], [address] [place] [address] Office: [phone] 06/07/25 1139 <Electronically signed by Madina Foss MD> Cosigner Signature (if applicable): CC: ~ Signed [facility] Work Phone: 1(501) 598-303510-09-2025 Discharge summary [facility] Medical Records Department [address] [place], [place] [address] Instructions for Home/Discharge Instructions 06/07/25 1139 MR#: [id number] Acct: [id number] Name: ELIZABETH BABB Rep #:[id number] : [...] 5 PM and on the weekends call [phone] with any concerns. Test Results: Test results [...] Referrals / Follow Up: Silvana Ward NP, PERFORATING MACHINE OPERATOR-C [Primary Care Provider, Medical] Disposition Disposition (needs filled in before D/C Order can be placed): Home, Self Care 06/07/25 1142Madina Foss MD CC: HUMBERTO-C Silvana Ward; Dr. Riley Swann MD ~ Signed [facility]10-09-2025 Progress note [facility] Medical Records Department [address] [place] [address] Progress Note - Surgery 06/07/25 0735 MR#: [id number] Acct: [id number] Name: ELIZABETH BABB Rep #:[id number] : 1975 50 From: Madina Foss MD PCP: Silvana Ward PERFORATING MACHINE OPERATOR-C Status:ADM I NO Location: MS[facility] [id number] Subjective Subjective Patient tolerating diet. Pain controlled. [...] Will DC home. Madina Foss M.D. Pager: [phone] [facility] [address] [place] [address], [facility], [address] [place] [address] Office: [phone] 06/07/25 1139 Cosigner Signature (if applicable): CC: ~ Signed [facility]10-08-2025 Consult note Author Pasquale Lo [facility] Note Date/Time June 06, 2025 3: 13pm [facility] Medical Records Department [address] [place] [address] Anesthesia Postop Eval II 06/06/25 1513 MR#: [id number] Acct: [id number] Name: ELIZABETH BABB Rep #:[id number] : 1975 50 From: Pasquale Leal PCP: MADISYN PhamC Status:ADM I NO Y Race: C Location: [place] [address] Anesthesia Postop Eval I Sum Postop Eval Completion status Anesthesia document: Postop Eval 1 completed: Yes Anesthesia Postop Eval I Summary Anesthesia Postop Eval I Summary: Anesthesia Postop Eval I: Assessment Summary 3 Airway patent Yes 06/06/25 14:05 HALL [email or web address] Spontaneous unlabored Yes 06/06/25 14:05 HALL [email or web address] respirations Mental status Awake,Calm 06/06/25 14:05 HALL COORDINATOR.[email or web address] nausea No 06/06/25 14:05 HALL COORDINATOR.[email or web address] Vomiting No 06/06/25 14:05 HALL COORDINATOR.[email or web address] Anesthesia Postop Eval I: Fluid Summary Crystalloid volume administer 600 06/06/25 14:05 HALL COORDINATOR.[email or web address] (ml) Colloids volume administered ( ml) Blood Product volume administered (ml) Total IV fluid infused 600 06/06/25 14:05 HALL COORDINATOR.[email or web address] Anesthesia Postop Eval I: Summary Notes Anesthesia Complication No 06/06/25 14:05 HALL COORDINATOR.[email or web address] Anesthesia Complication Comment: Post-operative progress note Anesthesia: Postop Eval II Evaluation Mental status: Awake and Calm Pain Level: 1 nausea: No Vomiting: No Complications Anesthesia Complication: No 06/06/25 151 <Electronically signed by Pasquale Lo MD> Date _ Pasquale Lo MD Cosigner Signature: Date CC: ~ Signed [facility] Work Phone: [phone]) 985-573110-08-2025 Consult note Author Gentry Slater [facility] Note Date/Time June 06, 2025 2: 05pm [facility] Medical Records Department [address] [place] [address] Anesthesia Postop Eval I 06/06/25 1404 MR#: [id number] Acct: [id number] Name: ELIZABETH BABB Rep #:[id number] : 1975 50 From: Gentry Slater CRNA PCP: KENISHA Pham Status:ADM I NO Y Race: C Location: [place] [address] Anesthesia: Postop Eval I Current Vital Signs [...] CRNA Cosigner Signature: Date CC: ~ Signed [facility] Work Phone: 1(994) 667-846110-08-2025 Consult note [facility] Medical Records Department [address] [place] [address] Anesthesia Postop Eval II 06/06/25 1513 MR#: [id number] Acct: [id number] Name: ELIZABETH BABB Rep #:[id number] : 1975 50 From: Pasquale Leal PCP: MADISYN PhamC Status:ADM I NO Y Race: C [place] [facility] [place] -[place] Anesthesia Postop Eval I Sum Postop Eval Completion status Anesthesia document: Postop Eval 1 completed: Yes Anesthesia Postop Eval I Summary Anesthesia Postop Eval I Summary: Anesthesia Postop Eval I: Assessment Summary 3 Airway patent Yes 06/06/25 14:05 HALL [email or web address] Spontaneous unlabored Yes 06/06/25 14:05 HALL COORDINATOR.[email or web address] respirations Mental status Awake,Calm 06/06/25 14:05 HALL COORDINATOR.[email or web address] nausea No 06/06/25 14:05 HALL COORDINATOR.[email or web address] Vomiting No 06/06/25 14:05 HALL COORDINATOR.[email or web address] Anesthesia Postop Eval I: Fluid Summary Crystalloid volume administer 600 06/06/25 14:05 HALL COORDINATOR.PKEL (ml) Colloids volume administered ( ml) Blood Product volume administered (ml) Total IV fluid infused 600 06/06/25 14:05 HALL COORDINATOR.[email or web address] Anesthesia Postop Eval I: Summary Notes Anesthesia Complication No 06/06/25 14:05 HALL COORDINATOR.[email or web address] Anesthesia Complication Comment: Post-operative progress note Anesthesia: Postop Eval II Evaluation Mental status: Awake and Calm Pain Level: 1 nausea: No Vomiting: No Complications Anesthesia Complication: No 06/06/25 1513 > Date _ Pasquale Lo MD Cosigner Signature: Date CC: ~ Signed [facility]10-08-2025 Consult note Author Pasquale Lo [facility] Note Date/Time June 06, 2025 12 :22pm [facility] Medical Records Department [address] [place] [address] [place] [address] Pre-Anesthesia Evaluation 06/06/25 1220 MR#: [id number] Acct: [id number] Name: ELIZABETH BABB Rep #:[id number] : 1975 50 From: Pasquale Leal PCP: KENISHA Pham Status:ADM I NO Y Race: C Location: [place] [address] -1 ASA Classification* ASA Classification ASA Classification: [...] perirectal abscess 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 Hx Hospitalization No 05/28/25 08:28 Any Problems [...] take am of surgery PONV 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 Female HX of Motion Sickness HX of N/V After Surgery Non-Smoker Duration of Surgery greater than 60 minutes Number of Risk Factors PONV Score Height & Weight Height & Weight: Anesthesia: Height & Weight Height 5 ft 6 in 06/06/25 09:48 Weight: 107.501 kg 06/06/25 09:48 Body Mass Index (BMI) 38.2 06/06/25 09:48 Respiratory Assessment Respiratory Assessment - 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: Respiratory Tract Infection Hx - 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 Hx Respiratory Tract Infection No 06/06/25 09:01 STOP Sleep Apnea STOP Sleep Apnea - 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: STOP Sleep Apnea - 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 Hx Hypertension Yes 06/06/25 08:54 Hx Sleep [...] Tobacco Use History 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: 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 Tobacco Use Smoking Status Never smoker 06/06/25 08:54 Hx Tobacco Use No 06/06/25 08:54 Years Smoking Packs Smoked per Day Smoking Cessation Date was within the last 15 years Hx Smoking Cessation Date Hx Smoking Cessation Counseling Hematologic Medial History Hematologic Hx - 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: 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 Hx of Blood Transfusion No 06/06/25 08:54 [...] confused, unrespo /Reproduction History /Reproductive History - 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: /Reproductive Hx- 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 Hx Now No 06/06/25 09:01 Gestational Age [...] mls @ 15 mls/hr 06/06/25 09:00 IV .[id number] PRN Saline Flush Sodium Chloride 250 mls @ 15 mls/hr 06/06/25 09:00 IV .[id number] PRN Additional IVPB Infusion Lactated Ringer's 1,000 [...] MD Cosigner Signature: Date CC: ~ Signed [facility] Work Phone: 1(364) 896-983810-08-2025 Procedure note [facility] Medical Records Department [address] [place] [address] Operative Report 06/06/25 1404 MR#: [id number] Acct: [id number] Name: ELIZABETH BABB Rep #:[id number] : 1975 50 From: Riley Swann MD PCP: KENISHA Pham Status:ADM I NO [place] [facility] [place]U142-5 Procedures Digestive 40xxx-49xxx: 89235 Incision of rectal abscess Operative Report (Standard) Operative Information Date of Procedure: 06/06/25 Pre-Operative Diagnosis: left side perirectal abscess Post-Operative Diagnosis: Same Surgery/Procedure Performed: Incision and drainage of left sided perirectal abscess seo strategist: No Type of Anesthesia: General and Local [...] KENISHA Ward; Dr. Riley Swann MD~ Signed [facility]10-08-2025 Consult note [facility] Medical Records Department [address] [place] [address] Anesthesia Postop Eval I 06/06/25 1404 MR#: [id number] Acct: [id number] Name: ELIZABETH BABB Rep #:[id number] : 1975 50 From: Gentry Slater CRNA PCP: KENISHA Pham Status:ADM I NO Y Race: C Location: [place] [address] Anesthesia: Postop Eval I Current Vital Signs [...] Eval 1 completed: Yes 06/06/25 1405 y HALL COORDINATOR> Date _ Gentry Slater CRNA Cosigner Signature: Date CC: ~ Signed [facility]10-08-2025 History and physical note Author Riley Swann [facility] Note Date/Time June 06, 2025 10 :53[facility] Medical Records Department [address] [place] [address] History & Physical Exam 06/06/25 1048 MR#: [id number] Acct: [id number] Name: ELIZABETH BABB Rep #:[id number] : 1975 50 From: Riley Swann MD PCP: KENISHA Pham Status:ADM I NO Location: [place] [address]-1 HPI - General General Date of Admission: [...] abscess. I recommended admission and intraoperative drainage. [facility] Medical History Normal Holter exam Anal [...] 75.2 H, Lymph % (Auto) 14.3 L, [place] % (Auto) 7.7, Eos % (Auto) 1.9, [...] dimensions above. See above description. Reading Location: [id number] Assessment & Plan Assessment/Plan (1) Perirectal abscess: [...] KENISHA Ward; Dr. 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 Hx Hospitalization No 05/28/25 08:28 Any Problems [...] take am of surgery PONV 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 Female HX of Motion Sickness HX of N/V After Surgery Non-Smoker Duration of Surgery greater than 60 minutes Number of Risk Factors PONV Score Height & Weight Height & Weight: Anesthesia: Height & Weight Height 5 ft 6 in 06/06/25 09:48 Weight: 107.501 kg 06/06/25 09:48 Body Mass Index (BMI) 38.2 06/06/25 09:48 Respiratory Assessment Respiratory Assessment - 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: Respiratory Tract Infection Hx - 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 Hx Respiratory Tract Infection No 06/06/25 09:01 STOP Sleep Apnea STOP Sleep Apnea - 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: STOP Sleep Apnea - 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 Hx Hypertension Yes 06/06/25 08:54 Hx Sleep [...] Tobacco Use History 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: 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 Tobacco Use Smoking Status Never smoker 06/06/25 08:54 Hx Tobacco Use No 06/06/25 08:54 Years Smoking Packs Smoked per Day Smoking Cessation Date was within the last 15 years Hx Smoking Cessation Date Hx Smoking Cessation Counseling Hematologic Medial History Hematologic Hx - 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: 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 Hx of Blood Transfusion No 06/06/25 08:54 [...] confused, unrespo /Reproduction History /Reproductive History - 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: /Reproductive Hx- 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 Hx Now No 06/06/25 09:01 Gestational Age [...] mls @ 15 mls/hr 06/06/25 09:00 IV .[id number] PRN Saline Flush Sodium Chloride 250 mls @ 15 mls/hr 06/06/25 09:00 IV .[id number] PRN Additional IVPB Infusion Lactated Ringer's 1,000 [...] 10 ml UD PRN Administration [facility] History Normal Holter exam Anal [...] MD Cosigner Signature: Date CC: ~ Signed [facility]10-08-2025 History and physical note [facility] Medical Records Department [address] [place] [address] History & Physical Exam 06/06/25 1048 MR#: [id number] Acct: [id number] Name: ELIZABETH BABB Rep #:[id number] : 1975 50 From: Riley Swann MD PCP: Silvana Ward NP-C Status:ADM I NO Location: [facility] [place]554-0 HPI - General General Date of Admission: [...] abscess. I recommended admission and intraoperative drainage. [facility] Medical History Normal Holter exam Anal [...] 75.2 H, Lymph % (Auto) 14.3 L, [place] % (Auto) 7.7, Eos % (Auto) 1.9, [...] dimensions above. See above description. Reading Location: [id number] Assessment & Plan Assessment/Plan (1) Perirectal abscess: [...] KENISHA Ward; Dr. Riley Swann MD~ Signed [facility]10-08-2025 [facility] Medical Records Department [address] [place] [address] History Physical Exam 06/06/25 1048 MR#: [id number] Acct: [id number] Name: ELIZABETH BABB Rep #: [id number] : 1975 50 From: Riley Swann MD PCP: KENISHA Pham Status:ADM VALERIE Location: [place] [address]-1 HPI - General General Date of Admission: [...] abscess. I recommended admission and intraoperative drainage. [facility] Medical History Normal Holter exam Anal [...] Pulse Strength Normal (2+ (more content not included)...[facility]10-08-2025 Discharge summary Author Caden Cabezas [facility] Note Date/Time June 06, 2025 8: 05am [facility] Medical Records Department [address] [place] [address] Emergency Department Summary 06/06/25 MR#: [id number] Acct: [id number] Name: ELIZABETH BABB Rep #:[id number] : 1975 50 From: Caden Cabezas DO PCP: KENISHA Pham Status:REG E R Location: ED HPI <Dr. Caden Cabezas DO - Last Filed: 06/06/25 07:18> History of Present Illness Chief Complaint: Wound Check Informant: patient and spouse/S.O. Narrative Narrative: Patient is a 50-year-old female with past medical history of hypertension anxiety and depression and ftm-itbbhcs-czdlimqpf diabetes. On May 29 she underwent surgery [...] and taking her antibiotic shepresents for evaluation [facility] <Dr. Caden Cabezas DO - Last Filed: 06/06/25 07:18> [facility] Medical History Normal Holter exam Anal [...] Cabezas DO - Last Filed: 06/06/25 07:18> [facility] MDM Narrative Medical decision making narrative: [...] 75.2 H Lymph % (Auto) 14.3 L [place]lamath % (Auto) 7.7 Eos % (Auto) 1.9 [...] dimensions above. See above description. Reading Location: [id number] <Dr. Uriel Jolley MD - Last Filed: 06/06/25 08:05> [facility] Lab Data Labs: Laboratory Results - last 24 hr 06/06/25 05:56 WBC 11.3 H RBC 4.80 Hgb 14.0 Hct 40.9 MCV 85.2 MCH 29.2 MCHC 34.2 RDW Std Deviation 35.9 RDW Coeff of Karla 11.7 Plt Count 303 MPV 9.4 Immature Gran % (Auto) 0.500 Neut % (Auto) 75.2 H Lymph % (Auto) 14.3 L [place] % (Auto) 7.7 Eos % (Auto) 1.9 [...] dimensions above. See above description. Reading Location: [facility] Treatment and Re-Evaluation :: CT of the [...] dependent diabetes mellitus, Anal fissure Disposition Disposition: [facility] What to do if you have Problems For any increased pain, shortness of breath, bleeding, nausea or vomiting, chestpain, or any unexpected problems, contact your Primary Care Provider. Call [facility] ([phone]) or report to the closest Emergency Room. Call 911 if necessary. 06/06/25717 <Electronically signed by Caden Cabezas DO> Cosigner Signature (if applicable): 06/06/25804 <Electronically signed by Orlin HILLIARD> CC: KENISHA Ward ~ Signed [facility] Work Phone: 1(324) 546-969810-08-2025 Discharge summary [facility] Medical Records Department [address] [place] [address] Emergency Department Summary 06/06/25 MR#: [id number] Acct: [id number] Name: ELIZABETH BABB Rep #:[id number] : 1975 50 From: Caden Cabezas DO PCP: KENISHA Pham Status:REG E R Location: ED HPI History of Present Illness Chief Complaint: Wound Check Informant: patient and spouse/S.O. Narrative Narrative: Patient is a 50-year-old female with past medical history of hypertension anxiety and depression and sii-voyqelg-rzmoyokpq diabetes. On May 29 she underwent surgery [...] and taking her antibiotic shepresents for evaluation [facility] Medical History Normal Holter exam Anal fissure [...] 75.2 H Lymph % (Auto) 14.3 L [place] % (Auto) 7.7 Eos % (Auto) 1.9 [...] dimensions above. See above description. Reading Location: [id number] MDM Lab Data Labs: Laboratory Results - last 24 hr 06/06/25 05:56 WBC 11.3 H RBC 4.80 Hgb 14.0 Hct 40.9 MCV 85.2 MCH 29.2 MCHC 34.2 RDW Std Deviation 35.9 RDW Coeff of Karla 11.7 Plt Count 303 MPV 9.4 Immature Gran % (Auto) 0.500 Neut % (Auto) 75.2 H Lymph % (Auto) 14.3 L [place] % (Auto) 7.7 Eos % (Auto) 1.9 [...] dimensions above. See above description. Reading Location: [id number] Treatment and Re-Evaluation :: CT of the [...] Anal fissure Disposition Disposition: Acute Care Hospital [facility] What to do if you have Problems For any increased pain, shortness of breath, bleeding, nausea or vomiting, chestpain, or any unexpected problems, contact your Primary Care Provider. Call [facility] ([phone]) or report tothe closest Emergency Room. Call 911 if necessary. 06/06/25717 Cosigner Signature (if applicable): 06/06/25804 CC: KENISHA Ward ~ Signed [facility]10-08-2025 Radiology Diagnostic study note [facility] Imaging Services [address] [facility] [place] [place] [address] Pelvis WITH IV Contrast MR#: [id number] Acct: [id number] Name: ELIZABETH BABB Rep #: [id number] : 1975 F 50 From: Janie Damico MD PCP: KENISHA Pham Status: REG E R Study:Pelvis WITH IV Contrast Date of Exam: 06/06/25 Exam# [id number] Ordering Dr: Keeley Cabezas DO PROCEDURE: PELVIS [...] dimensions above. See above description. Reading Location: [id number] CC: KENISHA Ward; DO Caleb Mabry Pin Sorter And Bagger: Signed [facility]10-06-2025 [facility] [address] [facility] [place] [address] OFFICE VISIT Date of Service: 06/04/25 MR#: [id number] Acct: [id number] Name: ELIZABETH BABB Rep #: [id number] : 1975 Provider: Dr. Preston Swann MD Age/Sex: 50/F Location: [facility] Status: Signed Intake Vital Signs 05/29/25 12:23 [...] Global Post Op Diagnoses Anal fissure K60.2 [facility] Medical History Normal Holter exam Anal [...] k MD> Date _ Riley Swann MD [facility] Signature: Date (if applicable) CC: ~ [facility]09-30-2025 Discharge summary [facility] Medical Records Department [address] [place] [address] Instructions for Home/Discharge Instructions 05/29/25 1516 MR#: [id number] Acct: [id number] Name: ELIZABETH BABB Rep #:[id number] : 1975 50 From: Riley Swann MD PCP: Silvana Ward, PERFORATING MACHINE OPERATOR-C Status:REG S DC Discharge Instructions Diet Discharge [...] Provider: Silvana Ward NP Instructions Print Language: Stateless Discharge Orders/Prescriptions Prescriptions: New oxycodone 5 mg [...] Referrals / Follow Up: Silvana Ward NP, PERFORATING MACHINE OPERATOR-C [Primary Care Provider, Medical] Disposition Disposition (needs filled in before D/C Order can be placed): Home, Self Care 05/29/25 1516Riley Swann MD CC: KENISHA Ward ~ Signed [facility]09-30-2025 Consult note [facility] Medical Records Department [address] [place] [address] Anesthesia Postop Eval I 05/29/25 1609 MR#: [id number] Acct: [id number] Name: ELIZABETH BABB Rep #:[id number] : 1975 50 From: Tasia ruggiero CRNA PCP: KENISHA Pham Status:REG S DC Y Race: C Location: [place] [address] Anesthesia: Postop Eval I Current Vital Signs [...] Eval 1 completed: Yes 05/29/25 1610 myah HALL COORDINATOR> Date _ Tasia Arriaza HALL COORDINATOR Cosigner Signature: Date CC: ~ Signed [facility]09-30-2025 History and physical note Author Riley Swann [facility] Note Date/Time May 29, 2025 1:34pm [facility] Medical Records Department [address] [place] [address] History & Physical Exam 05/29/25 1332 MR#: [id number] Acct: [id number] Name: ELIZABETH BABB Rep #:[id number] : 1975 50 From: Riley Swann MD PCP: KENISHA Pham Status:REG S DC Location: [place] [address] HPI - General General Date of Admission: [...] sphincterotomy surgery and she wished to proceed. [facility] Medical History Normal Holter exam Anal [...] KENISHA Ward; Dr. Riley Swann MD~ Signed [facility] Work Phone: 1(676) 346-184909-30-2025 Procedure note [facility] Medical Records Department [address] [place] [address] Operative Report 05/29/25 1516 MR#: [id number] Acct: [id number] Name: ELIZABETH BABB Rep #:[id number] : 1975 50 From: Riley Swann MD PCP: KENISHA Pham Status:REG S DC Location: [place] [address] [facility] Codes Digestive Digestive CPT Codes: 29201 Surg dx exam anorectal and 30667 Treatment of anal fissure Endocrine,Ocular,Nerv, Auditory Endocrine,Ocular,Nerv, Auditory CPT Codes: Other Procedure See Report (85010 bilateral pudendal nerve block) Operative Report (Standard) Operative Information Date of Procedure: 05/29/25 Pre-Operative Diagnosis: Chronic anal fissure Post-Operative Diagnosis: Same Surgery/Procedure Performed: 1. Rectal exam under anesthesia 2. Lateral internal sphincterotomy 3. Bilateral pudendal nerve block seo strategist: No Type of Anesthesia: General and Local [...] KENISHA Ward; Dr. Riley Swann MD~ Signed [facility]09-30-2025 Discharge summary [facility] Medical Records Department [address] [place] [address] Instructions for Home/Discharge Instructions 05/29/25 1510 MR#: [id number] Acct: [id number] Name: ELIZABETH BABB Rep #:[id number] : [...] Provider: Silvana Ward NP Instructions Print Language: Stateless Discharge Orders/Prescriptions Prescriptions: New oxycodone 5 mg [...] Referrals / Follow Up: Silvana Ward NP, PERFORATING MACHINE OPERATOR-C [Primary Care Provider, Medical] Disposition Disposition (needs filled in before D/C Order can be placed): Home, Self Care 05/29/25 1516Stjose roberto Swann MD CC: HUMBERTO-Portia Ward ~ Signed [facility]09-30-2025 Consult note Author Max Hall [facility] Note Date/Time May 29, 2025 1:11pm [facility] Medical Records Department [address] [place] [address] Pre-Anesthesia Evaluation 05/29/25 1303 MR#: [id number] Acct: [id number] Name: ELIZABETH BABB Rep #:[id number] : 1975 50 From: Max Hall MD PCP: KENIHSA Pham Status:REG S DC Y Race: C Location: [place] [address] ASA Classification* ASA Classification ASA Classification: 2 [...] INTERNAL SPHINCTEROTOMY 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 Hx Hospitalization No 05/28/25 08:28 Any Problems [...] sips of water?: No PONV 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 Female Yes 05/28/25 08:28 HX of Motion [...] 05/29/25 12:23 Respiratory Assessment Respiratory Assessment - 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: Respiratory Tract Infection Hx - 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 Hx Respiratory Tract Infection No 05/28/25 08:28 STOP Sleep Apnea STOP Sleep Apnea - 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: STOP Sleep Apnea - 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 Hx Hypertension Yes: CONTROLLED WITH MED 05/28/25 [...] Tobacco Use History 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: 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 Tobacco Use Smoking Status Never smoker 05/28/25 08:28 Hx Tobacco Use No 05/28/25 08:28 Years Smoking Packs Smoked per Day Smoking Cessation Date was within the last 15 years Hx Smoking Cessation Date Hx Smoking Cessation Counseling Hematologic Medial History Hematologic Hx - 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: 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 Hx of Blood Transfusion No 05/28/25 08:28 [...] confused, unrespo /Reproduction History /Reproductive History - 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: /Reproductive Hx- 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 Hx Now No 05/28/25 08:28 Gestational Age [...] MD Cosigner Signature: Date CC: ~ Signed [facility] Work Phone: 1(886) 583-446609-30-2025 History and physical note [facility] Medical Records Department [address] [place] [address] History & Physical Exam 05/29/25 1332 MR#: [id number] Acct: [id number] Name: ELIZABETH BABB Rep #:[id number] : 1975 50 From: Riley Swann MD PCP: KENISHA Pham Status:REG S DC Location: [place] [address] HPI - General General Date of Admission: [...] sphincterotomy surgery and she wished to proceed. [facility] Medical History Normal Holter exam Anal [...] KENISHA Ward; Dr. Riley Swann MD~ Signed [facility]09-30-2025 [facility] Medical Records Department [address] [place] [address] History Physical Exam 05/29/25 1332 MR#: [id number] Acct: [id number] Name: ELIZABETH BABB Rep #: [id number] : 1975 50 From: Riley Swann MD PCP: KENISHA Pham Status:[facility] Location: [place] [address] HPI - General General Date of Admission: [...] sphincterotomy surgery and she wished to proceed. [facility] Medical History Normal Holter exam Anal [...] CC: KENISHA Ward; [facility] Medical Records Department [address] [place] [address] Pre-Anesthesia Evaluation 05/29/25 1303 MR#: [id number] Acct: [id number] Name: ELIZABETH BABB Rep #:[id number] : 1975 50 From: Max Hall MD PCP: KENISHA Pham Status:REG S DC Y Race: C Location: [place] [address] ASA Classification* ASA Classification ASA Classification: 2 [...] INTERNAL SPHINCTEROTOMY 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 Hx Hospitalization No 05/28/25 08:28 Any Problems [...] sips of water?: No PONV 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 Female Yes 05/28/25 08:28 HX of Motion [...] 05/29/25 12:23 Respiratory Assessment Respiratory Assessment - 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: Respiratory Tract Infection Hx - 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 Hx Respiratory Tract Infection No 05/28/25 08:28 STOP Sleep Apnea STOP Sleep Apnea - 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: STOP Sleep Apnea - 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 Hx Hypertension Yes: CONTROLLED WITH MED 05/28/25 [...] Tobacco Use History 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: 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 Tobacco Use Smoking Status Never smoker 05/28/25 08:28 Hx Tobacco Use No 05/28/25 08:28 Years Smoking Packs Smoked per Day Smoking Cessation Date was within the last 15 years Hx Smoking Cessation Date Hx Smoking Cessation Counseling Hematologic Medial History Hematologic Hx - 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: 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 Hx of Blood Transfusion No 05/28/25 08:28 [...] confused, unrespo /Reproduction History /Reproductive History - 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: /Reproductive Hx- 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 Hx Now No 05/28/25 08:28 Gestational Age [...] Schafernéstor Simmonsigner Signature: Date CC: ~ Signed [facility]09-26-2025 Evaluation note* Diagnosis Onset Date Resolution Status Admit Date Anal fissure acute May 252024 1:25pm Anal fissure acute May 292024 11:58am [facility] Work Phone: 1(996) 491-591209-26-2025 Evaluation note* Diagnosis Onset Date Resolution Status Admit Date Anal fissure acute May 252024 1:25pm Anal fissure acute May 292024 11:58am Anal fissure acute June 04, 2025 12:37pm [facility] Work Phone: 1(115) 830-764609-26-2025 Evaluation note* Diagnosis Onset Date Resolution Status Admit Date Anal fissure acute May 252024 1:25pm Anal fissure acute May 292024 11:58am Anal fissure acute June 04, 2025 12:37pm Perirectal abscess acute Octobe r 2024 8:10am Status post incision and drainage acute June 06 8:10am Status post incision and drainage acute June 08 2:08pm [facility] Work Phone: 1(731) 470-809709-26-2025 Evaluation note* Diagnosis Onset Date Resolution Status [...] incision and drainage acute June 20 1:46pm [facility] Work Phone: 1(131) 341-223309-26-2025 Evaluation note* Diagnosis Onset Date Resolution Status [...] incision and drainage acute July 03 12:58pm [facility] Work Phone: 1(963) 585-7301794381-27-2340 [facility] [address] [place] [address]. [address] [place] [address] OFFICE VISIT Date of Service: 05/25/25 MR#: [id number] Acct: [id number] Name: ELIZABETH BABB Rep #: [id number] : 1975 Provider: Dr. Preston Swann MD Age/Sex: 50/F Location: [facility] Status: Signed with Addenda ADDENDUM by ROSANGELA [...] Cosigner Signature: Date (if applicable) CC: ~ [facility]09-26-2025 Progress note Author Riley Swann [facility] Note Date/Time May 25, 2025 2:26pm [facility] [address] [place] [address]. [address] [place] [address] OFFICE VISIT Date of Service: 05/25/25 MR#: [id number] Acct: [id number] Name: ELIZABETH BABB Rep #: [id number] : 1975 Provider: Dr. Preston Swann MD [...] Cosigner Signature: Date (if applicable) CC: ~ [facility] Work Phone: 1(618) 326-176808-18-2025 Telephone encounter Note* Telephone Encounter - Ava Rizvi LPN - 04/16/2025 2:12 PM EDT Fax rec'd from insurance noting no PA was needed. [facility]08-18-2025 Miscellaneous Notes* Telephone Encounter - Ava Rizvi [...] rx benefits. Form completed. documented in this encounterMet[facility]-2025 Telephone encounter Note * Telephone Encounter - Ava Rizvi LPN - 04/13/2025 2:45 PM EDT Another form rec'd this was completed and to pcp to sign.(ITS THE SAME QUESTIONS JUST DIFFERENT FORM). [facility]08-15-2025 Telephone encounter Note* Telephone Encounter - Ava Rizvi LPN - 04/13/2025 11:27 AM EDT unable to complete PA for mounjaro electronically. Covermymeds says to complete with rx benefits. Form completed. [facility]08-12-2025 Telephone encounter Note* Telephone Encounter - Ava Rizvi LPN - 04/10/2025 3:09 PM EDT Pt notified via my chart. [facility]08-12-2025 Miscellaneous Notes* Telephone Encounter - Ava Rizvi [...] ready for the pt. documented in this encounterMet[facility]-2025 Telephone encounter Note * Telephone Encounter - Ava Rizvi LPN - 04/10/2025 2:50 PM EDT Electronic PA requested for review. Unable to complete this electronically. Called the pharmacy to verify this need. The pharmacist reports no PA is needed. They will get it ready for the pt. [facility]08-07-2025 Consult note Author To Fagan [facility] Note Date/Time April 05, 2025 11: 51am [facility] Medical Records Department [address] [place] [address] Anesthesia Postop Eval I 04/05/25 1150 MR#: [id number] Acct: [id number] Name: ELIZABETH BABB Rep #:[id number] : 1975 50 From: To MELENDEZ PCP: KENISHA Pham Status:REG S DC Y Race: C Location: [place] [address] Anesthesia: Postop Eval I Current Vital Signs [...] CRNA Cosigner Signature: Date CC: ~ Signed [facility] Work Phone: 1(941) 713-450308-07-2025 Consult note [facility] Medical Records Department [address] [facility] [place] [address] Anesthesia Postop Eval I 04/05/25 1150 MR#: [id number] Acct: [id number] Name: ELIZABETH BABB Rep #:[id number] : 1975 50 From: To MELENDEZ PCP: MADISYN PhamC Status:REG S DC Y Race: C Location: [place] [address] Anesthesia: Postop Eval I Current Vital Signs [...] Postop Eval 1 completed: Yes 04/05/25 1151 HALL COORDINATOR> Date _ To Fagan HALL COORDINATOR Cosigner Signature: Date CC: ~ Signed [facility]08-07-2025 Consult note Author Jose Ramon Millerearl [facility] Note Date/Time April 05, 2025 9:2 3am [facility] Medical Records Department [address] [place] [address] Pre-Anesthesia Evaluation 04/05/25 0922 MR#: [id number] Acct: [id number] Name: ELIZABETH BABB Rep #:[id number] : 1975 50 From: Jose Ramon White MD PCP: KENISHA Pham Status:REG S DC Y Race: C Location: [place] [address] ASA Classification* ASA Classification ASA Classification: 2 [...] ROOT REPAIR 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 Hx Hospitalization No 03/07/25 08:28 Any Problems [...] take am of surgery PONV 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 Female Yes 03/07/25 08:28 HX of Motion [...] 12/22/24 14:13 Respiratory Assessment Respiratory Assessment - 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: Respiratory Tract Infection Hx - 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 Hx Respiratory Tract Infection No 03/07/25 08:28 STOP Sleep Apnea STOP Sleep Apnea - 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: STOP Sleep Apnea - 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 Hx Hypertension Yes: CONTROLLED WITH MED 03/07/25 [...] Tobacco Use History 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: 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 Tobacco Use Smoking Status Never smoker 03/07/25 08:28 Hx Tobacco Use No 03/07/25 08:28 Years Smoking Packs Smoked per Day Smoking Cessation Date was within the last 15 years Hx Smoking Cessation Date Hx Smoking Cessation Counseling Hematologic Medial History Hematologic Hx - 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: 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 Hx of Blood Transfusion No 03/07/25 08:28 [...] confused, unrespo /Reproduction History /Reproductive History - 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: /Reproductive Hx- 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 Hx Now No 03/07/25 08:28 Gestational Age [...] MD Cosigner Signature: Date CC: ~ Signed [facility] Work Phone: 1(151) 162-884408-07-2025 Consult note [facility] Medical Records Department [address] [place] [address] Pre-Anesthesia Evaluation 04/05/25921 MR#: [id number] Acct: [id number] Name: ELIZABEHT BABB Rep #:[id number] : 1975 50 From: Jose Ramon White MD PCP: MADISYN PhamC Status:REG S DC Y Race: C Location: [place] [address] ASA Classification* ASA Classification ASA Classification: 2 [...] ROOT REPAIR 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 Hx Hospitalization No 03/07/25 08:28 Any Problems [...] take am of surgery PONV 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 Female Yes 03/07/25 08:28 HX of Motion [...] 12/22/24 14:13 Respiratory Assessment Respiratory Assessment - 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: Respiratory Tract Infection Hx - 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 Hx Respiratory Tract Infection No 03/07/25 08:28 STOP Sleep Apnea STOP Sleep Apnea - 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: STOP Sleep Apnea - 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 Hx Hypertension Yes: CONTROLLED WITH MED 03/07/25 [...] Tobacco Use History 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: 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 Tobacco Use Smoking Status Never smoker 03/07/25 08:28 Hx Tobacco Use No 03/07/25 08:28 Years Smoking Packs Smoked per Day Smoking Cessation Date was within the last 15 years Hx Smoking Cessation Date Hx Smoking Cessation Counseling Hematologic Medial History Hematologic 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 Author Type: Nurse Practitioner Type: [...] onset 03/16/21, monoclonal Ab tx per pulmonology [facility] Non morbid obesity 07/15/2016 S/P laparoscopic [...] thyroid symmetric, normal size, (more content not included)...[facility]07-15-2025 History of Present illness Narrative* Silvana Ward APRN.[facility] - 03/13/2025 10:58 AM EDT This is [...] onset 03/16/21, monoclonal Ab tx per pulmonology [facility] Non morbid obesity 07/15/2016 S/P laparoscopic [...] Promotion: - Eat healthy -- go to [employer] to get started - Have a yearly [...] complication, without long-term current use of insulin ([facility]) (E11.9) 3. Class 2 severe obesity due to excess calories with serious comorbidity and body mass index (BMI)of 38.0 to 38.9 in adult ([facility]) (E66.812) - Recent lab results indicate elevated [...] meniscus, current injury, right knee, subsequent encounter (E70.862T) - Scheduled for knee surgery on April [...] as needed for worsening/no improvement. Silvana Ward APRN.ANIMAL DAYCARE PROVIDER Recording using [employer] software for draft documentation of the visit was discussed with the patient/authorized senior sales representative; all questions welcomed and answered. Patient/authorized senior sales representative agreed to proceed documented in this encounterMet[facility]07-[facility]25 Instructions* Patient Instructions* Silvana Ward APRN.CNP - 03/13/2025 9:16 AM EDT - Increased metformin to 2 tablets by mouth daily; you may take both with breakfast or split between breakfast and dinner if you notice diarrhea. - Refill for lisinopril has been sent to [facility]; pick it up as soon as it s ready. - Prior authorization has been submitted for Mounjaro (weekly semaglutide) to [employer]; if approved, curing pickling packer the first four starter doses. - Do [...] dose escalation if appropriate. documented in this encounterMet[facility]04-19-2025 Evaluation note* Diagnosis Onset Date Resolution Status Admit Date Cough acute December 16 12:17pm Nasal congestion acute December 162024 12:17pm PND (post-nasal drip) acute Nov 12:17pm Rhinorrhea acute December 16 12:17pm Anal fissure acute December 22, 2024 1:53pm [facility] Work Phone: 1(177) 753-931003-30-2025 Evaluation note* Diagnosis Onset Date Resolution Status Admit Date Maxillary sinusitis acute November 26, 2024 9:47am Cough acute December 16 12:17pm Nasal congestion acute December 162024 12:17pm PND (post-nasal drip) acute Nov 12:17pm Rhinorrhea acute December 16 12:17pm Anal fissure acute December 22, 2024 1:53pm [facility] Work Phone: 1(105) 161-842303-10-2025 Telephone encounter Note* Telephone Encounter - Silvana Ward APRN.CNP - 11/06/2024 1:04 PM EDT Yes, she can switch to me. We did a physical back in March. We just didn't officially change her yet, as I don't think we new what Giancarlo's intent was. It is okay to change. Silvana Ward APRN.CNP [facility]03-10-2025 Miscellaneous Notes* Telephone Encounter - Silvana Ward APRN.CNP - 11/06/2024 1:04 PM EDT Yes, she can switch to me. We did a physical back in March. We just didn't officially change her yet, as I don't think we new what Giancarlo's intent was. It is okay to change. Silvana Ward APRN.SCOOTER * Telephone Encounter - Mary Broussard MA - 11/06/2024 10:02 AM EDT See pt message. Are you okay with taking this patient on? Looks like you've been seeing this patient the most. Mary Broussard MA documented in this encounter[facility] Telephone encounter Note * Telephone Encounter - Mary Broussard MA - 11/06/2024 10:02 AM EDT See pt message. Are you okay with taking this patient on? Looks like you've been seeing this patient the most. Mary Broussard MA [facility]03-10-2025 Telephone encounter Note* Telephone Encounter - Delfina Wharton LPN - 11/06/2024 9:53 AM EDT This was sent to the incorrect pharmacy. [facility]03-10-2025 Miscellaneous Notes* Telephone Encounter - Delfina Wharton LPN - 11/06/2024 9:53 AM EDT This was sent to the incorrect pharmacy. documented in this encounterMet[facility]03-04-2025 Telephone encounter Note * Telephone Encounter - Jong Weems MD - 10/31/2024 2:18 PM EST She is due for follow up. Also needs to change to a provider accepting patients as pcp [facility]03-04-2025 Miscellaneous Notes* Telephone Encounter - Jong Weems [...] you. Ania Bruce MA. documented in this encounterMet[facility]03-04-2025 Telephone encounter Note * Telephone Encounter - [...] Please advise. Thank you. Ania Bruce MA. [facility]02-27-2025 Evaluation note* Diagnosis Onset Date Resolution Status [...] Nov 12:17pm Rhinorrhea acute December 16 12:17pm [facility] Work Phone: 1(758) 488-119011-14-2024 Telephone encounter Note* Telephone Encounter - Odessa Chu APRN.CNP - 07/13/2024 8:10 AM EST The following approved medication requests have been transmitted electronically. Requested Prescriptions Pending Prescriptions Disp Refills metFORMIN ER (GLUCOPHAGE XR) 500 mg 24 hr tablet 30 tablet 5 Sig: Take 1 tablet by mouth daily with breakfast. Odessa Chu APRN.CNP [facility]11-14-2024 Miscellaneous Notes* Telephone Encounter - Odessa Chu [...] 12, 2024 3:14 PM documented in this encounterMet[facility]11-13-2024 Telephone encounter Note * Telephone Encounter - [...] Menjivar LPN July 12, 2024 3:14 PM [facility]09-05[facility] Telephone encounter Note* Telephone Encounter - Odessa Chu APRN.CNP - 05/04/2024 5:04 PM EDT The following approved medication requests have been transmitted electronically. Requested Prescriptions Pending Prescriptions Disp Refills lisinopril (ZESTRIL) 10 mg tablet 90 tablet 3 Sig: Take 1 tablet by mouth once daily. Odessa Chu APRN.CNP [facility]09-05-2024 Miscellaneous Notes* Telephone Encounter - Odessa Chu [...] 04, 2024 3:28 PM documented in this encounterMet[facility]09-05-2024 Telephone encounter Note * Telephone Encounter - [...] Kennedy LPN May 04, 2024 3:28 PM [facility]08-12-[facility]24 Instructions* Patient Instructions* Silvana Ward APRN.SCOOTER - 04/10/2024 8:45 AM EDT Get additional labwork. Do sleep study. Schedule mammogram. documented in this encounterMet[facility]08-12-2024 History of Present illness Narrative* Silvana Ward [...] onset 03/16/21, monoclonal Ab tx per pulmonology [facility] 07/15/2016: Non morbid obesity 09/03/2021: S/P [...] Promotion: - Eat healthy -- go to i3 membrane.gov to get started - Have a yearly [...] as needed for worsening/no improvement. Silvana Ward APRN.ANIMAL DAYCARE PROVIDER documented in this encounterMetro[facility]05-29-2024 Telephone encounter Note * Telephone Encounter - Leander Swanson LPN - 01/26/2024 4:07 PM EDT OV notes/results faxed to Dr. Wen's office. Leander Swanson LPN [facility]05-29-2024 Miscellaneous Notes* Telephone Encounter - Leander Swanson LPN - 01/26/2024 4:07 PM EDT OV notes/results faxed to Dr. Wen's office. Leander Swanson LPN * Telephone Encounter - Leander Swanson LPN - 01/26/2024 2:01 PM EDT Received fax asking for last office note or GI referral for pt. She has an upcoming appt with Dr. Wen. Leander Swanson LPN documented in this encounterMet[facility]05-29-2024 Telephone encounter Note * Telephone Encounter - Leander Swanson LPN - 01/26/2024 2:01 PM EDT Received fax asking for last office note or GI referral for pt. She has an upcoming appt with Dr. Behzad. Leander Swanson LPN [facility]04-25-2024 Procedure [facility]04-05-2024 Discharge summary Author Mena Duggan [facility] December 03, 2023 10:07am Note Date/Time December 03, 2023 10:0 7am [facility] Medical Records Department [address] [place] [address] Instructions for Home/Discharge Instructions 12/03/23 1006 MR#: [id number] Acct: [id number] Name: ELIZABETH BABB Rep #:[id number] : [...] Referrals / Follow Up: Silvana Ward NP, PERFORATING MACHINE OPERATOR-C [Primary Care Provider] - Disposition Disposition (needs filled in before D/C Order can be placed): Home, Self Care 12/03/23 1007<Electronically signed by Mena Duggan MD>Mena Duggan MD CC: PERFORATING MACHINE OPERATOR-C Silvana Ward ~ Signed [facility] Work Phone: 1(618) 556-713704-05-2024 Procedure [facility] 08-10-2023 Miscellaneous Notes* Telephone Encounter - Leander [...] PM EST Results of CT scanned into [facility]. Scan on 08/06/2023 4:21 PM by [...] 4:58 PM EST Results of labs from [facility]. Scan on 08/03/2023 2:18 PM by ProviderBrandon PA-C: Hematology Scan on 08/03/2023 3:14 PM by Brandon Sun PA-C: Miscellaneous Lab Scan on 08/03/2023 2:41 PM by Brandon Sun PA-C: Chemistry documented in this encounterMetro[facility]12-04-2023 History of Present illness Narrative* Silvana Ward [...] onset 03/16/21, monoclonal Ab tx per pulmonology [facility] Non morbid obesity 07/15/2016 S/P laparoscopic [...] to have any further testing done at [facility]. She will get further urinalysis/culture and [...] improvement. Silvana Ward APRN.CNP documented in this encounterMetro[facility] Center10-24-2023 Miscellaneous Notes* Telephone Encounter - Silvana Ward APRN.CNP - 06/22/2023 4:36 PM EDT Mammo normal. Pt notified via Cardiosonich[facility]. Silvana Ward APRN.SCOOTER * Telephone Encounter - Mary Broussard Ma - 06/22/2023 11:15 AM EDT Office received Mammogram results as ordered by Silvana. See results below and advise. Mary Broussard Ma [facility] - Mammography [ID [id number]] documented in this encounterMetro[facility]09-25-2023 Miscellaneous Notes* Telephone Encounter - Leander Swanson [...] wellness exam on 04/06/23. Pt works for [employer] and has a short form that needs to be completed and faxed back to her. FAX: [phone]. Type of form: 2022 Healthy Living program form Form received via fax When form is completed, Fax form to [phone] Form has been delivered to Silvana Ward's office. Laid on nurses desk. Silvana is out of the office. Pt is asking to have this filled out when she returns. Linda Menjivar LPN documented in this encounterMet[facility]09-07-2023 Miscellaneous Notes* Telephone Encounter - Kristi Flowers - 05/06/2023 11:20 AM EDT POPULATION HEALTH NAVIGATION OUTREACH Action/I 1st call-[facility] and [facility] message regarding consult to ORTHOPEDICS. Patient Identified by Name and : NO Outreach Outcome/Action Unable to reach patient: Left message Imgurt message sent Did you use a PCP flex slot to schedule this appointment? N/A Reason for Outreach Care Gap or Scheduling/Wellness visits Payer: Payor: AETNA / Plan: AETNA [facility] / Product Type: PPO / Care Gap Reviewed:: Specialty Scheduling Reminder: Reminder note to check Health Maintenance for items below Health Maintenance items due: HEPATITIS B(1 of 3 - 3-dose series) Never done COVID-19 VACCINE(1) Never done BP CONTROLLED (<130/80) due on 05/20/2021 INFLUENZA(1) due on 04/30/2023 MAMMOGRAM due on 06/19/2023 Navigation Signature: Kristi Flowers May 06, 2023 11:20 AM documented in this encounterMetro[facility]08-08-2023 Instructions* Patient Instructions* Silvana Ward APRN.ANIMAL DAYCARE PROVIDER - 04/06/2023 9:04 AM EDT Get the repeat labs. Schedule with ortho. Schedule with dermatology. Schedule ultrasound. Schedule mammogram. Health Promotion: - Eat healthy -- go to i3 membrane.gov to get started - Have a yearly [...] drive - Wear sunscreen documented in this encounterMetrohealth [facility] Center08-08-2023 History of Present illness Narrative* Silvana Ward [...] excruciating. Going to go to [facility] for skin cancer screening. Requesting a [...] onset 03/16/21, monoclonal Ab tx per pulmonology [facility] Non morbid obesity 07/15/2016 S/P laparoscopic [...] Promotion: - Eat healthy -- go to i3 membrane[employer] to get started - Have a yearly [...] up for mammogram, yearly mammogram recommended - [facility] SCREENING W [place] Discussed treatment plan and patient voices understanding. Patient's questions answered appropriately. Medications and potential side effects were discussed and patient voices understanding. Return to the office as scheduled or as needed for worsening/no improvement. Silvana Ward APRN.ANIMAL DAYCARE PROVIDER documented in this encounterMetrohealth [facility] Center10-04-2022 Miscellaneous Notes* Telephone Encounter - Leander Swanson [...] - 05/29/2022 1:58 PM EDT Kim with [facility] called in and reports Pts insurance needs an order for Pt to see a Shipping Agent. Let her know that Pt already had a consult in and she states that she also needs one sent to her insurance. She states the phone # to call is [phone]. Pt is seeing Dr Josue. documented in this encounterMetro[facility]08-26-2022 Miscellaneous Notes* Telephone Encounter - Silvana Ward APRN.CNP - 04/24/2022 1:31 PM EDT Script sent. Silvana Ward APRN.ANIMAL DAYCARE PROVIDER * Telephone Encounter - Daiaan Ramos Cma - 04/24/2022 1:12 PM EDT Patient notified and verbalized understanding patient is going to see the [facility] cardiology. She needs refills on [...] 03/24 Ania Bruce Ma documented in this encounterMet[facility]07-28-2022 Miscellaneous Notes* Telephone Encounter - Tracey Naik [...] advise. Mary Broussard Ma documented in this encounterMetro[facility]07-26-2022 Instructions* Patient Instructions* Silvana Ward APRN.CNP - 03/24/2022 1:40 PM EDT 1. Schedule EKG, echo, and event monitor. 2. Get labs. 3. If you get any sustained palpitations, or palpitations associated w/ other symptoms (pain, shortness of breath, dizziness, etc) -- go to the ER. Health Promotion: - Eat healthy go to i3 membrane.gov to get started - Have a yearly [...] drive - Wear sunscreen documented in this encounterMetrohealth [facility] Center07-26-2022 History of Present illness Narrative* Silvana Ward [...] onset 03/16/21, monoclonal Ab tx per pulmonology [facility] Non morbid obesity 07/15/2016 S/P laparoscopic [...] Health Promotion: - Eat healthy go to [employer] to get started - Have a yearly [...] APRN.SCOOTER This note was partially generated using PathAR voice recognition system. Note was reviewed for accuracy. There may be minor misspellings or grammar miscues with PathAR voice recognition. documented in this encounterMetrohealth [facility]07-10-2015 History of Past illness Narrative* Problem Noted Date Resolved Date Laryngitis 03/08/2015 07/15/2016 Counseling and coordination of care 01/29/2015 05/14/2015 documented as of this encounter (statuses as of 03/20/2022) [address]-2015 History of Past illness Narrative* Problem Noted Date Resolved Date Laryngitis 03/08/2015 07/15/2016 Counseling and coordination of care 01/29/2015 05/14/2015 documented as of this encounter (statuses as of 03/23/2022) [address]2015 History of Past illness Narrative* Problem Noted Date Resolved Date Laryngitis 03/08/2015 07/15/2016 Counseling and coordination of care 01/29/2015 05/14/2015 documented as of this encounter (statuses as of 03/24/2022) [address]2015 History of Past illness Narrative* Problem Noted Date Resolved Date Laryngitis 03/08/2015 07/15/2016 Counseling and coordination of care 01/29/2015 05/14/2015 documented as of this encounter (statuses as of 03/26/2022) [address]2015 History of Past illness Narrative* Problem Noted Date Resolved Date Laryngitis 03/08/2015 07/15/2016 Counseling and coordination of care 01/29/2015 05/14/2015 documented as of this encounter (statuses as of 04/24/2022) [facility] of Past illness Narrative* Problem Noted Date Resolved Date Laryngitis 03/08/2015 07/15/2016 Counseling and coordination of care 01/29/2015 05/14/2015 documented as of this encounter (statuses as of 05/22/2022) [facility] History of Past illness Narrative* Problem Noted Date Resolved Date Laryngitis 03/08/2015 07/15/2016 Counseling and coordination of care 01/29/2015 05/14/2015 documented as of this encounter (statuses as of 06/02/2022) [address]2015 History of Past illness Narrative* Problem Noted Date Diagnosed Date Resolved Date Laryngitis 03/08/2015 07/15/2016 Counseling and coordination of care 01/29/2015 05/14/2015 documented as of this encounter (statuses as of 04/07/2023) [address] History of Past illness Narrative* Problem Noted Date Diagnosed Date Resolved Date Laryngitis 03/08/2015 07/15/2016 Counseling and coordination of care 01/29/2015 05/14/2015 documented as of this encounter (statuses as of 04/07/2023) [address]2015 History of Past illness Narrative* Problem Noted Date Diagnosed Date Resolved Date Laryngitis 03/08/2015 07/15/2016 Counseling and coordination of care 01/29/2015 05/14/2015 documented as of this encounter (statuses as of 05/06/2023) [address] History of Past illness Narrative* Problem Noted Date Diagnosed Date Resolved Date Laryngitis 03/08/2015 07/15/2016 Counseling and coordination of care 01/29/2015 05/14/2015 documented as of this encounter (statuses as of 05/20/2023) [address] History of Past illness Narrative* Problem Noted Date Diagnosed Date Resolved Date Laryngitis 03/08/2015 07/15/2016 Counseling and coordination of care 01/29/2015 05/14/2015 documented as of this encounter (statuses as of 05/24/2023) [address]2015 History of Past illness Narrative* Problem Noted Date Diagnosed Date Resolved Date Laryngitis 03/08/2015 07/15/2016 Counseling and coordination of care 01/29/2015 05/14/2015 documented as of this encounter (statuses as of 06/23/2023) [address]2015 History of Past illness Narrative* Problem Noted Date Diagnosed Date Resolved Date Laryngitis 03/08/2015 07/15/2016 Counseling and coordination of care 01/29/2015 05/14/2015 documented as of this encounter (statuses as of 08/03/2023) [address]2015 History of Past illness Narrative* Problem Noted Date Diagnosed Date Resolved Date Laryngitis 03/08/2015 07/15/2016 Counseling and coordination of care 01/29/2015 05/14/2015 documented as of this encounter (statuses as of 11/22/2023) [facility] [address] [place] [address] Anesthesia Postop Eval II 05/29/252222 MR#: [id number] Acct: [id number] Name: ELIZABETH BABB Rep #:[id number] : 1975 50 From: Max Hall MD PCP: KENISHA Pham Status:DEP S DC Y Race: C [place] [facility] [place] Eval I Sum Postop Eval Completion status Anesthesia document: Postop Eval 1 completed: Yes Anesthesia Postop Eval I Summary Anesthesia Postop Eval I Summary: Anesthesia Postop Eval I: Assessment Summary Airway patent Yes 05/29/25 16:10 HALL [email or web address] Spontaneous unlabored Yes 05/29/25 16:10 HALL COORDINATOR.[email or web address] respirations Mental status Awake,Calm 05/29/25 16:10 HALL COORDINATOR.SKOBY nausea No 05/29/25 16:10 HALL COORDINATOR.SKOBY Vomiting No 05/29/25 16:10 HALL COORDINATOR.SKOBY Anesthesia Postop Eval I: Fluid Summary Crystalloid volume administer 700 05/29/25 16:10 HALL COORDINATOR.SKOBY (ml) Colloids volume administered ( ml) Blood Product volume administered (ml) Total IV fluid infused 700 05/29/25 16:10 HALL COORDINATOR.SKOBY Anesthesia Postop Eval I: Summary Notes Anesthesia Complication No 05/29/25 16:10 HALL COORDINATOR.SKOBY Anesthesia Complication Comment: Post-operative progress note Anesthesia: Postop Eval II Evaluation Mental status: Awake and Calm Pain Level: 2 nausea: No Vomiting: No Complications Anesthesia Complication: No 05/29/25 2223 néstor HILLIARD> Date _ Max Hall MD Cosigner Signature: Date CC: ~ Signed [facility] CenterConsult note Author Tasia Arriaza [facility] Note Date/Time May 29, 2025 4:10pm [facility] Medical Records Department [address] [place] [address] Anesthesia Postop Eval I 05/29/25 1609 MR#: [id number] Acct: [id number] Name: ELIZABETH BABB Rep #:[id number] : 1975 50 From: Tasia ruggiero HALL COORDINATOR PCP: KENISHA Pham Status:REG S DC Y Race: C Location: [place] [address] Anesthesia: Postop Eval I Current Vital Signs [...] CRNA Cosigner Signature: Date CC: ~ Signed [facility] Work Phone: Consult note Author Max [facility] Note Date/Time May 29, 2025 10:23pm [facility] Medical Records Department [address] [place] [address] Anesthesia Postop Eval II 05/29/25 2223 MR#: [id number] Acct: [id number] Name: ELIZABETH BABB Tripp Rep #:[id number] : 1975 50 From: Max Hall MD PCP: KENISHA Pham Status:DEP S DC Y Race: C [place] [facility] [place] Postop Eval I Sum Postop Eval Completion status Anesthesia document: Postop Eval 1 completed: Yes Anesthesia Postop Eval I Summary Anesthesia Postop Eval I Summary: Anesthesia Postop Eval I: Assessment Summary Airway patent Yes 05/29/25 16:10 HALL [email or web address] Spontaneous unlabored Yes 05/29/25 16:10 HALL COORDINATOR.SKOBY respirations Mental status Awake,Calm 05/29/25 16:10 HALL COORDINATOR.SKOBY nausea No 05/29/25 16:10 HALL COORDINATOR.SKOBY Vomiting No 05/29/25 16:10 HALL COORDINATOR.SKOBY Anesthesia Postop Eval I: Fluid Summary Crystalloid volume administer 700 05/29/25 16:10 HALL COORDINATOR.SKOBY (ml) Colloids volume administered ( ml) Blood Product volume administered (ml) Total IV fluid infused 700 05/29/25 16:10 HALL COORDINATOR.SKOBY Anesthesia Postop Eval I: Summary Notes Anesthesia Complication No 05/29/25 16:10 HALL COORDINATOR.SKOBDaquan Anesthesia Complication Comment: Post-operative progress note Anesthesia: Postop Eval II Evaluation Mental status: Awake and Calm Pain Level: 2 nausea: No Vomiting: No Complications Anesthesia Complication: No 05/29/254 <Electronically signed by Max palm MD> Date _ Max Hall MD Cosigner Signature: Date CC: ~ Signed [facility] Work Phone: Consult note Author Ethan Solitario [facility] Note Date/Time June 07, 2025 1: 59pm [facility] Medical Records Department [address] [place] [address] Counseling Note - Pharmacy 06/07/25 1322 MR#: [id number] Acct: [id number] Name: ELIZABETH BABB Rep #:[id number] : 1975 50 From: Ethan johnson PCP: KENISHA Pham Status:ADM I NO Y Location: [place] [address] Pharmacy DC Med Reconciliation Pharmacy Service has [...] Signature (if applicable): Date CC: ~ Signed [facility] Work Phone: Discharge summary Author Riley Swann [facility] Note Date/Time May 29, 2025 3:16pm [facility] Medical Records Department [address] [facility] [place] [address] Instructions for Home/Discharge Instructions 05/29/25 1510 MR#: [id number] Acct: [id number] Name: ELIZABETH BABB Rep #:[id number] : [...] Provider: Silvana Ward NP Instructions Print Language: Stateless Discharge Orders/Prescriptions Prescriptions: New oxycodone 5 mg [...] Referrals / Follow Up: Silvana Ward NP, PERFORATING MACHINE OPERATOR-C [Primary Care Provider, Medical] Disposition Disposition (needs filled in before D/C Order can be placed): Home, Self Care 09/30/25 1516<Electronically signed by Riley Swann MD>Riley Swann MD CC: PERFORATING MACHINE OPERATOR-C Silvana Ward ~ Signed [facility] Work Phone: Discharge summary Author Riley Swann [facility] Note Date/Time May 29, 2025 4:58pm [facility] Medical Records Department [address] [place] [address] Instructions for Home/Discharge Instructions 05/29/251515 MR#: [id number] Acct: [id number] Name: ELIZABETH BABB Rep #:[id number] : [...] Provider: Silvana Ward NP Instructions Print Language: Stateless Discharge Orders/Prescriptions Prescriptions: New oxycodone 5 mg [...] Referrals / Follow Up: Silvana Ward NP, PERFORATING MACHINE OPERATOR-C [Primary Care Provider, Medical] Disposition Disposition (needs filled in before D/C Order can be placed): Home, Self Care 05/29/25 1516<Electronically signed by Riley Swann MD>Riley Swann MD CC: PERFORATING MACHINE OPERATOR-C Silvana Ward ~ Signed [facility] Work Phone: Discharge summary Author Caden Cabezas [facility] Note Date/Time June 06, 2025 8: 05am [facility] Medical Records Department [address] [place] [address] Emergency Department Summary 06/06/25 MR#: [id number] Acct: [id number] Name: ELIZABETH BABB Rep #:[id number] : 1975 50 From: Caden Cabezas DO PCP: KENISHA Pham Status:REG E R Location: ED HPI <Dr. Caden Cabezas DO - Last Filed: 06/06/25 07:18> History of Present Illness Chief Complaint: Wound Check Informant: patient and spouse/S.O. Narrative Narrative: Patient is a 50-year-old female with past medical history of hypertension anxiety and depression and tsy-cqtlocr-fzukphjle diabetes. On May 29 she underwent surgery [...] and taking her antibiotic shepresents for evaluation [facility] <Dr. Caden Cabezas DO - Last Filed: 06/06/25 07:18> [facility] Medical History Normal Holter exam Anal [...] 75.2 H Lymph % (Auto) 14.3 L [place] % (Auto) 7.7 Eos % (Auto) 1.9 [...] dimensions above. See above description. Reading Location: [id number] <Dr. Uriel Jolley MD - Last Filed: 06/06/25 08:05> [facility] Lab Data Labs: Laboratory Results - last 24 hr 06/06/25 05:56 WBC 11.3 H RBC 4.80 Hgb 14.0 Hct 40.9 MCV 85.2 MCH 29.2 MCHC 34.2 RDW Std Deviation 35.9 RDW Coeff of Karla 11.7 Plt Count 303 MPV 9.4 Immature Gran % (Auto) 0.500 Neut % (Auto) 75.2 H Lymph % (Auto) 14.3 L [place] % (Auto) 7.7 Eos % (Auto) 1.9 [...] dimensions above. See above description. Reading Location: [facility] Treatment and Re-Evaluation :: CT of the [...] Anal fissure Disposition Disposition: Acute Care Hospital [facility] What to do if you have Problems For any increased pain, shortness of breath, bleeding, nausea or vomiting, chestpain, or any unexpected problems, contact your Primary Care Provider. Call [facility] ([phone]) or report to the closest Emergency Room. Call 911 if necessary. 06/06/25717 <Electronically signed by Caden Cabezas DO> Cosigner Signature (if applicable): 06/06/25804 <Electronically signed by Orlin HILLIARD> CC: KNEISHA Ward ~ Signed [facility] Work Phone: Evaluation note* Diagnosis Encounter for screening mammogram for breast cancer [facility] [place] [facility] Diagnosis Wellness examination- Primary Palpitations Hypertension, essential Unspecified essential hypertension Anxiety with depression documented in this encounter [facility] noteNo assessment information [facility] Work Phone: Evaluation note* Diagnosis Mitral valve annular calcification- Primary Mitral valve disorders 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 documented in this encounter [facility] note* Diagnosis Onset Date Resolution Status Chest pain in adult acute Essential hypertension acute Nonrheumatic mitral valve disorder acute Palpitations acute [facility] Work Phone: Evaluation note* Diagnosis Wellness examination- [...] Other screening mammogram documented in this encounter [facility] note* Diagnosis Gross hematuria- Primary documented in this encounter [facility] note* Diagnosis Onset Date Resolution Status Lateral epicondylitis of both elbows acute [facility] Work Phone: evaluation note* Diagnosis Onset Date Resolution Status Lower extremity edema acute Lateral epicondylitis of both elbows acute [facility] Work Phone: Evaluation note* Diagnosis Onset Date Resolution Status Lower extremity edema acute Lateral epicondylitis of both elbows acute Varicose veins of right lower extremity with pain acute [facility] Work Phone: Evaluation note* Diagnosis Wellness examination- Primary Prediabetes Other abnormal glucose Fatigue, unspecified type Mass of left breast, unspecified quadrant 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 [facility] [place] [facility]* Diagnosis Prediabetes Other abnormal glucose documented in this encounter [facility] note* Diagnosis 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 documented in this encounter [facility] note* Diagnosis 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 documented in this encounter [facility] note* Diagnosis Routine physical examination- Primary Routine general medical examination at a health care facility Type 2 diabetes mellitus without complication, without long-term current use of insulin ([facility]) 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 Bee sting, accidental or unintentional, sequela Anal fissure Other tear of medial meniscus, current injury, right knee, subsequent encounter Class 2 severe obesity due to excess calories with serious comorbidity and body mass index (BMI) of 38.0 to 38.9 in adult (HCC) documented in this encounter [facility] note* Diagnosis Onset Date Resolution Status Admit Date Anal fissure acute May 252024 1:25pm Anal fissure acute May 292024 11:58am [facility] Work Phone: Progress note Author Riley Swann [facility] Note Date/Time June 04, 2025 1: 06pm [facility] [address] [place] [address] OFFICE VISIT Date of Service: 06/04/25 MR#: [id number] Acct: [id number] Name: ELIZABETH BABB Rep #: [id number] : 1975 Provider: Dr. Preston Swann MD Age/Sex: 50/F Location: [facility] Status: Signed Intake Vital Signs 05/29/25 12:23 [...] Global Post Op Diagnoses Anal fissure K60.2 [facility] Medical History Normal Holter exam Anal [...] Cosigner Signature: Date (if applicable) CC: ~ [facility] Work Phone: Progress note Author Sheila Serra [facility] Note Date/Time June 13, 2025 9 :09am [facility] [address] [place] [address] OFFICE VISIT Date of Service: 06/13/25 MR#: [id number] Acct: [id number] Name: ELIZABETH BABB Rep #: [id number] : 1975 Provider: KAVON Serra Age/Sex: 50/F [...] Diagnoses Status post incision and drainage Z98.890 [facility] Medical History (Updated 06/12/25 @ 00:00 by [...] Cosigner Signature: Date (if applicable) CC: ~ [email or web address] Work Phone: [employer] for referral (narrative)* Diagnostic Procedure Only (Routine) - Pending Review Specialty Diagnoses / Procedures Referred By Simona alonso Referred To Contact [facility] Diagnoses Encounter for screening mammogram for breast cancer Procedures ROCIO SCREENING SCREENING MAMMOGRAPHY BI 2-VIEW BREAST INC Hari Goldsmith PA-C [address] [place] [address] [facility] [address] [place] [address] Referral ID Status Reason Start Date Expiration Date Visits Requested Visits Authorized [id number] Pending Review Auto-Generat ed Referral 03/18/2022 04/17/2023 1 1 [facility] for referral (narrative)* Outpatient Procedure (Routine) - Pending Review Specialty Diagnoses / Procedures Referred By Simona alonso [facility] Diagnoses Palpitations Procedures ECHO ECHO TTHRC R-T 2D W/WOM-MODE COMPL SPEC&COLR D Silvana Ward APRN.ANIMAL DAYCARE PROVIDER [address] [place] [address] [facility] [address] [place] [address] Referral ID Status Reason Start Date Expiration Date Visits Requested Visits Authorized [id number] Pending Review Auto-Generat ed Referral 03/24/2022 03/24/2023 1 1 * Outpatient Procedure (Routine) - Pending Review Specialty Diagnoses / Procedures Referred By Contac t Referred [facility] Diagnoses Palpitations Procedures ECG COMPLETE ECG ROUTINE ECG W/LEAST 12 LDS W/I&R Silvana Ward APRN.ANIMAL DAYCARE PROVIDER [address] [place] [address] [facility] [address] [place] [address] Referral ID Status Reason Start Date Expiration Date Visits Requested Visits Authorized [id number] Pending Review Auto-Generat ed Referral 03/24/2022 03/24/2023 1 1 [facility] for referral (narrative)* Diagnostic Procedure Only (Routine) - Pending Review Specialty Diagnoses / Procedures Referred By Simona t Referred To Contact [facility] Diagnoses Visit for screening mammogram Procedures ROCIO SCREENING W KASSIDY SCREENING DIGITAL BREAST TOMOSYNTHESIS BI SCREENING MAMMOGRAPHY BI 2-VIEW BREAST INC CAD Silvana Ward APRN.ANIMAL DAYCARE PROVIDER [address] [place] [address] [facility] [address] [place] [address] Referral ID Status Reason Start Date Expiration Date Visits Requested Visits Authorized [id number] Pending Review Auto-Generat ed Referral 04/06/2023 05/05/2024 1 1 * Diagnostic Procedure Only (Routine) - Pending Review Specialty Diagnoses / Procedures Referred By Contac t Referred To Contact [facility] Diagnoses Elevated liver enzymes Procedures US ABD RIGHT UPPER QUADRANT US ABDOMINAL REAL TIME W/IMAGE LIMITED Silvana Ward APRN.ANIMAL DAYCARE PROVIDER [address] [place] [address] [facility] Referral ID Status Reason Start Date Expiration Date Visits Requested Visits Authorized [id number] Pending Review Auto-Generat ed Referral 04/06/2023 05/05/2024 1 1 * Consult, Test, Treat (Routine) - Authorized Specialty Diagnoses / Procedures Referred By Simona alonso Referred To Contact Orthopedics Diagnoses Lateral epicondylitis of both elbows Procedures CONSULT TO ORTHOPAEDICS OFFICE/OUTPATIENT [facility] MDM 60-74 MINUTES Silvana Ward APRN.ANIMAL DAYCARE PROVIDER [address] [place] [address] Referral ID Status Reason Start Date Expiration Date Visits Requested Visits Authorized [id number] Authorized PCP Requested Referral 04/06/2023 04/05/2024 1 1 * Transition of Care (Routine) - Ref Not Required Specialty Diagnoses / Procedures Referred By Simona alonso Referred To Contact Dermatology Diagnoses Skin cancer screening Procedures CONSULT TO DERMATOLOGY Silvana Ward APRN.ANIMAL DAYCARE PROVIDER [address] [place] [address] Referral ID Status Reason Start Date Expiration Date Visits Requested Visits Authorized [id number] Ref Not Required PCP Requested Referral 04/06/2023 04/05/2024 1 1 [facility] for referral (narrative)* Diagnostic Procedure Only (Routine) - New Request Specialty Diagnoses / Procedures Referred By Simona alonso Referred To Contact [facility] Diagnoses Mass of left breast, unspecified quadrant Procedures US BREAST LTD LEFT US BREAST UNI REAL TIME WITH IMAGE LIMITED Silvana Ward APRN.ANIMAL DAYCARE PROVIDER [address] [place] [address] [facility] [address] [place] [address] Referral ID Status Reason Start Date Expiration Date Visits Requested Visits Authorized [id number] New Request Auto-Generat ed Referral 04/10/2024 05/10/2025 1 1 * Diagnostic Procedure Only (Routine) - New Request Specialty Diagnoses / Procedures Referred By Contac t Referred To Contact [facility] Diagnoses Mass of left breast, unspecified quadrant Procedures ROCIO DIAGNOSTIC BILATERAL DIAGNOSTIC MAMMOGRAPHY COMPUTER-AIDED DETCJ BI Silvana Ward APRN.ANIMAL DAYCARE PROVIDER [address] [place] [address] [facility] [address] [place] [address] Referral ID Status Reason Start Date Expiration Date Visits Requested Visits Authorized [id number] New Request Auto-Generat ed Referral 04/10/2024 05/10/2025 1 1 * Diagnostic Procedure Only (Routine) - New Request Specialty Diagnoses / Procedures Referred By Contac t Referred To Contact [facility] Diagnoses Fatigue, unspecified type Procedures HOME SLEEP APNEA TEST (HSAT) SLEEP STD AIRFLOW HRT RATE&O2 SAT EFFORT UNATT Silvana Ward APRN.ANIMAL DAYCARE PROVIDER [address] [place] [address] [facility] [place] [address] [place] [address] Referral ID Status Reason Start Date Expiration Date Visits Requested Visits Authorized [id number] New Request Auto-Generat ed Referral 04/10/2024 04/10/2025 1 1 [facility] ([facility])No reason for referral information availableWBucyrus [facility] Work Phone: Reason for referral (narrative)* Medication Prior Authorization - Closed Specialty Diagnoses / Procedures Referred By Contac t Referred To Contact Silvana Ward APRN.ANIMAL DAYCARE PROVIDER [address] [place] [address] Phone: tel: fax: Referral ID Status Reason Start Date Expiration Date Visits Re quested Visits Authorized [id number] Closed 1 1 [facility] Advance Directives Documents on File Type Date Recorded Patient Valve Inspector Expl anation Advance Directive(s) 07/29/2016 10:56 AM Documents on File Type Date Recorded Patient Valve Inspector Expl anation Advance Directive(s) 07/29/2016 10:56 AM Advance Directive Response Recorded Date/ Time Living Will No September 03 6:02pm Power of Integrated Circuit Layout Designer No September 03 6:02pm Advance Directive Response Recorded Date/ Time Living Will No September 03 5:02pm Power of Integrated Circuit Layout Designer No September 03 5:02pm Advance Directive Response Recorded Date/ Time Living Will No November 29, 2023 2:10pm Power of Integrated Circuit Layout Designer No November 28 2:10pm Advance Directive Response Recorded Date/ Time Advance Directives No December 22 10:06am Living Will No December 23, 2023 10:06am Power of Integrated Circuit Layout Designer No December 22 10:06am Advance Directive Response Recorded Date/ Time Advance Directives No December 22 10:06am Advance Directive Response Recorded Date/ Time Do you have a Healthcare Power of Integrated Circuit Layout Designer? Yes March 07, 2025 8:28am Advance Directives No December 22 10:06am Advance Directive Response Recorded Date/ Time Do you have a Healthcare Power of Integrated Circuit Layout Designer? Yes March 07, 2025 8:28am Do you have a Healthcare Power of Integrated Circuit Layout Designer? Yes May 28, 2025 8:28am Advance Directives No December 22 10:06am Advance Directive Response Recorded Date/ Time Do you have a Healthcare Power of Integrated Circuit Layout Designer? Yes March 07, 2025 8:28am Do you have a Healthcare Power of Integrated Circuit Layout Designer? Yes May 28, 2025 8:28am Do you have a Healthcare Power of Integrated Circuit Layout Designer? No June 06, 2025 5:31am Advance Directives No December 22 10:06am Advance Directive Response Recorded Date/ Time Advance Directives No June 08, 2025 1:25pm Do you have a Healthcare Power of Integrated Circuit Layout Designer? Yes March 07, 2025 8:28am Do you have a Healthcare Power of Integrated Circuit Layout Designer? Yes May 28, 2025 8:28am Do you have a Healthcare Power of Integrated Circuit Layout Designer? Yes June 06, 2025 8:54am Advance Directive Response Recorded Date/ Time Advance Directives No June 08, 2025 12:25pm Do you have a Healthcare Power of Integrated Circuit Layout Designer? Yes March 07, 2025 7:28am Do you have a Healthcare Power of Integrated Circuit Layout Designer? Yes May 28, 2025 7:28am Do you have a Healthcare Power of Integrated Circuit Layout Designer? Yes June 06, 2025 7:54am Chief Complaint [...] KNEE ARTHROSCOPY. RX TO BE FAXED [facility] 2024 11:00am Reason for Visit Admit Date [...] annular calcification Procedures CONSULT TO CARDIOLOGY OFFICE/OUTPATIENT [facility] 60-74 MINUTES Hari Moss PA-C [address] [place] [address] Referral ID Status Reason Start Date Expiration Date Visits Requested Visits Authorized [id number] Authorized PCP Requested Referral 04/24/2022 04/24/2023 1 1 Specialty Diagnoses / Procedures Referred By Contac t Referred To Contact Urology Diagnoses Gross hematuria Procedures CONSULT TO UROLOGY OFFICE/OUTPATIENT [facility] 60-74 MINUTES Silvana Ward, MOVABLE BULKHEAD INSTALLER.ANIMAL DAYCARE PROVIDER [address] [place] [address] Referral ID Status Reason Start Date Expiration Date Visits Requested Visits Authorized [id number] Authorized PCP Requested Referral 08/02/2023 08/01/2024 1 1 Specialty Diagnoses / Procedures Referred By Contac t Referred To Contact CT IMAGING Diagnoses Gross hematuria Procedures CT UROGRAM WO/W IVCON CT ABD & PELVIS W/WO CONTRST 1+ BODY REGNS Silvana Ward, MOVABLE BULKHEAD INSTALLER.ANIMAL DAYCARE PROVIDER [address] [place] [address] [place] [address] Referral ID Status Reason Start Date Expiration Date Visits Requested Visits Authorized [id number] Pending Review Auto-Generat ed Referral 08/02/2023 08/31/2024 1 1 Summary Purpose Additional Source Comments Source Comments (unrecognize d section and content) In the event this informatio n is protected by the Federal Confidentiality of Alcohol and Drug Abuse Patient Records regulations: The Federal rules restrict any use of the information to criminally investigate or prosecute any alcohol or drug abuse patient.[facility] Center[facility] the event this information is protected by the Federal Confidentiality of Alcohol and Drug Abuse Patient Records regulations: The Federal rules restrict any use of the information to criminally investigate or prosecute any alcohol or drug abuse patient.[facility] CenterIn the event this information is protected by the Federal Confidentiality of Alcohol and Drug Abuse Patient Records regulations: The Federal rules restrict any use of the information to criminally investigate or prosecute any alcohol or drug abuse patient.[facility] CenterIn the event this information is protected by the Federal Confidentiality of Alcohol and Drug Abuse Patient Records regulations: The Federal rules restrict any use of the information to criminally investigate or prosecute any alcohol or drug abuse patient.[facility] CenterIn the event this information is protected by the Federal Confidentiality of Alcohol and Drug Abuse Patient Records regulations: The Federal rules restrict any use of the information to criminally investigate or prosecute any alcohol or drug abuse patient.[facility] CenterIn the event this information is protected by the Federal Confidentiality of Alcohol and Drug Abuse Patient Records regulations: The Federal rules restrict any use of the information to criminally investigate or prosecute any alcohol or drug abuse patient.[facility] CenterIn the event this information is protected by the Federal Confidentiality of Alcohol and Drug Abuse Patient Records regulations: The Federal rules restrict any use of the information to criminally investigate or prosecute any alcohol or drug abuse patient.[facility] CenterIn the event this information is protected by the Federal Confidentiality of Alcohol and Drug Abuse Patient Records regulations: The Federal rules restrict any use of the information to criminally investigate or prosecute any alcohol or drug abuse patient.[facility] CenterIn the event this information is protected by the Federal Confidentiality of Alcohol and Drug Abuse Patient Records regulations: The Federal rules restrict any use of the information to criminally investigate or prosecute any alcohol or drug abuse patient.[facility] CenterIn the event this information is protected by the Federal Confidentiality of Alcohol and Drug Abuse Patient Records regulations: The Federal rules restrict any use of the information to criminally investigate or prosecute any alcohol or drug abuse patient.[facility] CenterIn the event this information is protected by the Federal Confidentiality of Alcohol and Drug Abuse Patient Records regulations: The Federal rules restrict any use of the information to criminally investigate or prosecute any alcohol or drug abuse patient.[facility] CenterIn the event this information is protected by the Federal Confidentiality of Alcohol and Drug Abuse Patient Records regulations: The Federal rules restrict any use of the information to criminally investigate or prosecute any alcohol or drug abuse patient.[facility] CenterIn the event this information is protected by the Federal Confidentiality of Alcohol and Drug Abuse Patient Records regulations: The Federal rules restrict any use of the information to criminally investigate or prosecute any alcohol or drug abuse patient.[facility] CenterIn the event this information is protected by the Federal Confidentiality of Alcohol and Drug Abuse Patient Records regulations: The Federal rules restrict any use of the information to criminally investigate or prosecute any alcohol or drug abuse patient.[facility] CenterIn the event this information is protected by the Federal Confidentiality of Alcohol and Drug Abuse Patient Records regulations: The Federal rules restrict any use of the information to criminally investigate or prosecute any alcohol or drug abuse patient.[facility] CenterIn the event this information is protected by the Federal Confidentiality of Alcohol and Drug Abuse Patient Records regulations: The Federal rules restrict any use of the information to criminally investigate or prosecute any alcohol or drug abuse patient.[facility] CenterIn the event this information is protected by the Federal Confidentiality of Alcohol and Drug Abuse Patient Records regulations: The Federal rules restrict any use of the information to criminally investigate or prosecute any alcohol or drug abuse patient.[facility] CenterIn the event this information is protected by the Federal Confidentiality of Alcohol and Drug Abuse Patient Records regulations: The Federal rules restrict any use of the information to criminally investigate or prosecute any alcohol or drug abuse patient.[facility] CenterIn the event this information is protected by the Federal Confidentiality of Alcohol and Drug Abuse Patient Records regulations: The Federal rules restrict any use of the information to criminally investigate or prosecute any alcohol or drug abuse patient.[facility] CenterIn the event this information is protected by the Federal Confidentiality of Alcohol and Drug Abuse Patient Records regulations: The Federal rules restrict any use of the information to criminally investigate or prosecute any alcohol or drug abuse patient.[facility] CenterIn the event this information is protected by the Federal Confidentiality of Alcohol and Drug Abuse Patient Records regulations: The Federal rules restrict any use of the information to criminally investigate or prosecute any alcohol or drug abuse patient.[facility] CenterIn the event this information is protected by the Federal Confidentiality of Alcohol and Drug Abuse Patient Records regulations: The Federal rules restrict any use of the information to criminally investigate or prosecute any alcohol or drug abuse patient.[facility] CenterIn the event this information is protected by the Federal Confidentiality of Alcohol and Drug Abuse Patient Records regulations: The Federal rules restrict any use of the information to criminally investigate or prosecute any alcohol or drug abuse patient.[facility] CenterIn the event this information is protected by the Federal Confidentiality of Alcohol and Drug Abuse Patient Records regulations: The Federal rules restrict any use of the information to criminally investigate or prosecute any alcohol or drug abuse patient.[facility] CenterIn the event this information is protected by the Federal Confidentiality of Alcohol and Drug Abuse Patient Records regulations: The Federal rules restrict any use of the information to criminally investigate or prosecute any alcohol or drug abuse patient.[facility] CenterIn the event this information is protected by the Federal Confidentiality of Alcohol and Drug Abuse Patient Records regulations: The Federal rules restrict any use of the information to criminally investigate or prosecute any alcohol or drug abuse patient.[facility] CenterIn the event this information is protected by the Federal Confidentiality of Alcohol and Drug Abuse Patient Records regulations: The Federal rules restrict any use of the information to criminally investigate or prosecute any alcohol or drug abuse patient.[facility] Care Teams (unrecognized sec tion and content) Foot Roentgenologist Relationship Specialty Start Date End Date Hari Moss PA-C [address] [place] [address] PCP - General Family Practice 01/21/17 Foot Roentgenologist Relationship Specialty Start Date End Date Hari Moss PA-C [address] [place] [address] PCP - General Family Practice 01/21/17 Foot Roentgenologist Relationship Specialty Start Date End Date Hari Moss PA-C [address] [place] [address] PCP - General Family Practice 01/21/17 Foot Roentgenologist Relationship Specialty Start Date End Date Hari Moss PA-C [address] [place] [address] PCP - General Family Practice 01/21/17 Foot Roentgenologist Relationship Specialty Start Date End Date Hari Moss PA-C [address] [place] [address] PCP - General Family Practice 01/21/17 Foot Roentgenologist Relationship Specialty Start Date End Date Hari Moss PA-C [address] [place] [address] PCP - General Family Medicine 01/21/17 Foot Roentgenologist Relationship Specialty Start Date End Date Hari Moss PA-C [address] [place] [address] PCP - General Family Medicine 01/21/17 Foot Roentgenologist Relationship Specialty Start Date End Date Hari Moss PA-C [address] [place] [address] PCP - General Family Medicine 01/21/17 Foot Roentgenologist Relationship Specialty Start Date End Date Hari Moss PA-C [address] [facility], [place] [address] PCP - General Family Medicine 01/21/17 Team [...] MD Primary Care Provider Active Silvana Ward PERFORATING MACHINE OPERATOR, PERFORATING MACHINE OPERATOR-C Attending Provider, Referring Provider Active Foot Roentgenologist Relationship Specialty Start Date End Date Hari Moss PA-C [address] [place] [address] PCP - General Family Medicine 01/21/17 Foot Roentgenologist Relationship Specialty Start Date End Date Hari Moss PA-C [address] [place] [address] PCP - General Family Medicine 01/21/17 Foot Roentgenologist Relationship Specialty Start Date End Date Hari Moss PA-C [address] [place] [address] PCP - General Family Medicine 01/21/17 Foot Roentgenologist Relationship Specialty Start Date End Date Hari Moss PA-C [address] [place] [address] PCP - General Family Medicine 01/21/17 Team Status: Active Member Role Status Dates Hari BERGER PA Family Provider Active Silvana Ward PERFORATING MACHINE OPERATOR, PERFORATING MACHINE OPERATOR-C Primary Care Provider Active Team Status: Inactive Member Role Status Dates Dr. Jong Weems MD Primary Care Provider, Referring Provider Active Dr. Alejandro Graham DO Attending Provider Active Team Status: Inactive Member Role Status Dates Silvana Ward PERFORATING MACHINE OPERATOR, PERFORATING MACHINE OPERATOR-C Primary Care Pro vider, Attending Provider, Referring Provider Active Team Status: Inactive Member Role Status Dates Silvana Ward PERFORATING MACHINE OPERATOR, PERFORATING MACHINE OPERATOR-C Primary Care Provider, Referri ng Provider Active CELINE Weinberg Attending Provider Active Team Status: Inactive Member Role Status Dates Silvana Ward PERFORATING MACHINE OPERATOR, PERFORATING MACHINE OPERATOR-C Primary Care Provider, Referri ng Provider Active Dr. Alejandro Graham DO Attending Provider Active Team Status: Active Member Role Status Dates Silvana Ward PERFORATING MACHINE OPERATOR, PERFORATING MACHINE OPERATOR-C Primary Care Provider Active Dr. Jose Ramon Byers MD Attending Provider Active Team Status: Inactive Member Role Status Dates Silvana Ward PERFORATING MACHINE OPERATOR, PERFORATING MACHINE OPERATOR-C Primary Care Provider Active CELINE Weinberg Attending Provider, Referring Provid er Active Team Status: Active Member Role Status Dates Silvana Ward PERFORATING MACHINE OPERATOR, PERFORATING MACHINE OPERATOR-C Primary Care Provider Active Dr. Alejandro Graham DO Attending Provider, Referring Provider Active Team Status: Active Member Role Status Dates Silvana Ward PERFORATING MACHINE OPERATOR, PERFORATING MACHINE OPERATOR-C Primary Care Provider Active Dr. Jose Ramon Byers MD Attending Provider Active CELINE Weinberg Referring Provider Active Team Status: Inactive Member Role Status Dates Silvana Ward PERFORATING MACHINE OPERATOR, PERFORATING MACHINE OPERATOR-C Primary Care Provider Active Dr. Mena Duggan MD Attending Provider, Referring P rovider Active Foot Roentgenologist Relationship Specialty Start Date End Date Hari Moss PA-C [address] [place] [address] PCP - General Family Medicine 01/21/17 Team Status: Active Member Role Status Dates Silvana Ward PERFORATING MACHINE OPERATOR, PERFORATING MACHINE OPERATOR-C Primary Care Provider Active Dr. Jose Ramon Byers MD Attending Provider, Referring Provider, Other Provider Active Team Status: Inactive Member Role Status Dates Silvana Ward PERFORATING MACHINE OPERATOR, PERFORATING MACHINE OPERATOR-C Primary Care Provider Active Dr. Jose Ramon Byers MD Attending Provider, Referring Pro vider Active Foot Roentgenologist Relationship Specialty Start Date End Date Hari Moss PA-C [address] [place] [address] PCP - General Family Medicine 01/21/17 Foot Roentgenologist Relationship Specialty Start Date End Date Hari Moss PA-C [address] [place] [address] PCP - General Family Medicine 01/21/17 Foot Roentgenologist Relationship Specialty Start Date End Date Hari Moss PA-C [address] [place] [address] PCP - General Family Medicine 01/21/17 Foot Roentgenologist Relationship Specialty Start Date End Date Jeff Moss PA-C PCP - General Family Medicine 01/21/17 Foot Roentgenologist Relationship Specialty Start Date End Date Silvana Ward, MOVABLE BULKHEAD INSTALLER.ANIMAL DAYCARE PROVIDER [address] [place] [address] Strategic Marketing Leader Family Medicine 08/04/24 Odessa Chu, MOVABLE BULKHEAD INSTALLER.ANIMAL DAYCARE PROVIDER [address] [place] [address] Strategic Marketing Leader Family Medicine 08/04/24 Foot Roentgenologist Relationship Specialty Start Date End Date Silvana Ward, MOVABLE BULKHEAD INSTALLER.ANIMAL DAYCARE PROVIDER [address] [place] [address] PCP - General Family Medicine 11/06/24 Silvana Ward, MOVABLE BULKHEAD INSTALLER.ANIMAL DAYCARE PROVIDER [address] [place] [address] Strategic Marketing Leader Family Medicine 08/04/24 Odessa Chu, MOVABLE BULKHEAD INSTALLER.ANIMAL DAYCARE PROVIDER [address] [place] [address] [facility] 08/04/24 Foot Roentgenologist Relationship Specialty Start Date End Date Silvana Ward APRN.ANIMAL DAYCARE PROVIDER [address] [place] [address] PCP - General Family Medicine 11/06/24 Silvana Ward APRN.ANIMAL DAYCARE PROVIDER [address] [place], [place] [id number] [facility] 08/04/24 Odessa Chu APRN.ANIMAL DAYCARE PROVIDER [address] [place], [place] [address] [facility] 08/04/24 Team Status: Active Member Role Status Dates Silvana Ward NP, PERFORATING MACHINE OPERATOR-C Primary Care Provider Active Team Status: Inactive Member Role Status Dates Silvana Ward NP, PERFORATING MACHINE OPERATOR-C Primary Care Provider Active Start: October 19, 2024 End: October 19, 2024 Dr. Jacinto Smith DO Attending Provider Active Start: October 19, 2024 End: October 19, 2024 Dr. Jacinto Smith DO Referring Provider Active Start: October 19, 2024 End: October 19, 2024 Team Status: Inactive Member Role Status Dates Silvana Ward NP, PERFORATING MACHINE OPERATOR-C Primary Care Provider Active Start: October 26, 2024 End: October 26, 2024 Desiree Lau NP, PERFORATING MACHINE OPERATOR-C Attending Provider Active Start: October 26, 2024 End: October 26, 2024 Desiree Lau NP, PERFORATING MACHINE OPERATOR-C Referring Provider Active Start: October 26, 2024 End: October 26, 2024 Team Status: Inactive Member Role Status Dates Silvana Ward NP, PERFORATING MACHINE OPERATOR-C Primary Care Provider Active Start: October 31, 2024 End: October 31, 2024 Marty Gil MD Attending Provider Active St art: October 31, 2024 End: October 31, 2024 Team Status: Inactive Member Role Status Dates Silvana Ward NP, PERFORATING MACHINE OPERATOR-C Primary Care Provider Active Start: November 09, 2024 End: November 09, 2024 Silvana Ward NP, PERFORATING MACHINE OPERATOR-C Referring Provider Active Start: November 09, 2024 End: November 09, 2024 Dr. Gus Wen , DO Attending Provider Active Start: November 09, 2024 End: November 09, 2024 Team Status: Inactive Member Role Status Dates Silvana Ward PERFORATING MACHINE OPERATOR, PERFORATING MACHINE OPERATOR-C Primary Care Provider Active Start: November 26, 2024 End: November 26, 2024 Silvana Ward NP, PERFORATING MACHINE OPERATOR-C Referring Provider Active Start: November 26, 2024 End: November 26, 2024 Keenan Tellez NP, PERFORATING MACHINE OPERATOR-C Attending Provider Active S tart: November 26, 2024 End: November 26, 2024 Team Status: Inactive Member Role Status Dates Silvana Ward NP, PERFORATING MACHINE OPERATOR-C Primary Care Provider Active Start: December 16, 2024 End: December 16, 2024 Silvana Ward NP, PERFORATING MACHINE OPERATOR-C Referring Provider Active Start: December 16, 2024 End: December 16, 2024 Hanna Garcia NP-C Attending Provider Active Start: December 16, 2024 End: December 16, 2024 Team Status: Inactive Member Role Status Dates Silvana Ward NP, PERFORATING MACHINE OPERATOR-C Primary Care Provider Active Start: December 18, 2024 End: December 18, 2024 Hanna Garcia NP-C Attending Provider Active Start: December 18, 2024 End: December 18, 2024 Foot Roentgenologist Relationship Specialty Start Date End Date Silvana Ward APRN.ANIMAL DAYCARE PROVIDER [address] [place] [address] PCP - General Family Medicine 11/06/24 Team Status: Active Member Role/Relationship Status Dates Silvana Ward NP, PERFORATING MACHINE OPERATOR-C Primary Care Provider Active Team Status: Inactive Member Role/Relationship Status Dates Silvana Ward PERFORATING MACHINE OPERATOR, PERFORATING MACHINE OPERATOR-C Primary Care Provider Active Start: November 26, 2024 End: November 26, 2024 Silvana Ward NP, PERFORATING MACHINE OPERATOR-C Referring Provider Active Start: November 26, 2024 End: November 26, 2024 Keenan Tellez NP, PERFORATING MACHINE OPERATOR-C Attending Provider Active S tart: November 26, 2024 End: November 26, 2024 Team Status: Inactive Member Role/Relationship Status Dates Silvana Ward PERFORATING MACHINE OPERATOR, PERFORATING MACHINE OPERATOR-C Primary Care Provider Active Start: December 16, 2024 End: December 16, 2024 Silvana Ward PERFORATING MACHINE OPERATOR, PERFORATING MACHINE OPERATOR-C Referring Provider Active Start: December 16, 2024 End: December 16, 2024 Hanna Garcia PERFORATING MACHINE OPERATOR-C Attending Provider Active Start: December 16, 2024 End: December 16, 2024 Team Status: Inactive Member Role/Relationship Status Dates Silvana Ward PERFORATING MACHINE OPERATOR, PERFORATING MACHINE OPERATOR-C Primary Care Provider Active Start: December 18, 2024 End: December 18, 2024 Hanna Garcia PERFORATING MACHINE OPERATOR-C Attending Provider Active Start: December 18, 2024 End: December 18, 2024 Team Status: Inactive Member Role/Relationship Status Dates Silvana Ward PERFORATING MACHINE OPERATOR, PERFORATING MACHINE OPERATOR-C Primary Care Provider Active Start: December 22, 2024 End: December 22, 2024 iSlvana Ward PERFORATING MACHINE OPERATOR, PERFORATING MACHINE OPERATOR-C Referring Provider Active Start: December 22, 2024 End: December 22, 2024 Dr. Riley Swann MD Attending Provider Active Start: December 22, 2024 End: December 22, 2024 Team Status: Inactive Member Role/Relationship Status Dates Silvana Ward PERFORATING MACHINE OPERATOR, PERFORATING MACHINE OPERATOR-C Primary Care Provider Active Start: March 08, 2025 End: March 08, 2025 Dr. Jacinto Smith DO Attending Provider Active Start: March 08, 2025 End: March 08, 2025 Dr. Jacinto Smith DO Referring Provider Active Start: March 08, 2025 End: March 08, 2025 Team Status: Active Member Role/Relationship Status Dates Silvana Ward PERFORATING MACHINE OPERATOR, PERFORATING MACHINE OPERATOR-C Primary Care Provider Active Start: March 09, 2025 Health Risk Assessment Attending Provider Active Start: March 09, 2025 Health Risk Assessment Referring Provider Active Start: March 09, 2025 Team Status: Inactive Member Role/Relationship Status Dates Silvana Ward PERFORATING MACHINE OPERATOR, PERFORATING MACHINE OPERATOR-C Primary Care Provider Active Start: December 16, 2024 End: December 16, 2024 Silvana Ward PERFORATING MACHINE OPERATOR, PERFORATING MACHINE OPERATOR-C Referring Provider Active Start: December 16, 2024 End: December 16, 2024 Hanna Garcia PERFORATING MACHINE OPERATOR-C Attending Provider Active Start: December 16, 2024 End: December 16, 2024 Team Status: Inactive Member Role/Relationship Status Dates Silvana Ward PERFORATING MACHINE OPERATOR, PERFORATING MACHINE OPERATOR-C Primary Care Provider Active Start: December 18, 2024 End: December 18, 2024 MADISYN PeckC Attending Provider Active Start: December 18, 2024 End: December 18, 2024 Team Status: Inactive Member Role/Relationship Status Dates Silvana Ward PERFORATING MACHINE OPERATOR, PERFORATING MACHINE OPERATOR-C Primary Care Provider Active Start: December 22, 2024 End: December 22, 2024 Silvana Ward PERFORATING MACHINE OPERATOR, PERFORATING MACHINE OPERATOR-C Referring Provider Active Start: December 22, 2024 End: December 22, 2024 Dr. Riley Swann MD Attending Provider Active Start: December 22, 2024 End: December 22, 2024 Team Status: Inactive Member Role/Relationship Status Dates Silvana Ward PERFORATING MACHINE OPERATOR, PERFORATING MACHINE OPERATOR-C Primary Care Provider Active Start: February 27, 2025 Dr. Mena Duggan MD Attending Provider Active Start: February 27, 2025 Team Status: Active Member Role/Relationship Status Dates Silvana Ward PERFORATING MACHINE OPERATOR, PERFORATING MACHINE OPERATOR-C Primary Care Provider Active Start: March 08, 2025 End: March 08, 2025 Dr. Charles Sherwood MD Attending Provider Active S tart: March 08, 2025 End: March 08, 2025 Dr. Jacinto Smith DO Referring Provider Active Start: March 08, 2025 End: March 08, 2025 Team Status: Active Member Role/Relationship Status Dates Silvana Ward PERFORATING MACHINE OPERATOR, PERFORATING MACHINE OPERATOR-C Primary Care Provider Active Start: March 09, 2025 Health Risk Assessment Attending Provider Active Start: March 09, 2025 Health Risk Assessment Referring Provider Active Start: March 09, 2025 Team Status: Inactive Member Role/Relationship Status Dates Silvana Ward PERFORATING MACHINE OPERATOR, PERFORATING MACHINE OPERATOR-C Primary Care Provider Active Start: April 05, 2025 End: April 05, 2025 Dr. Jacinto Smith DO Attending Provider Active Start: April 05, 2025 End: April 05, 2025 Dr. Jacinto Smith DO Referring Provider Active Start: April 05, 2025 End: April 05, 2025 Foot Roentgenologist Relationship Specialty Start Date End Date Silvana Ward APRN.ANIMAL DAYCARE PROVIDER [address] [place] [address] PCP - General Family Medicine 11/06/24 Foot Roentgenologist Relationship Specialty Start Date End Date Silvana Ward APRN.[facility] [address] [place] [address] PCP - General Family Medicine 11/06/24 Team Status: Active Member Role/Relationship Status Dates Silvana Ward PERFORATING MACHINE OPERATOR, PERFORATING MACHINE OPERATOR-C Primary care physician Active Team Status: Inactive Member Role/Relationship Status Dates Silvana Ward PERFORATING MACHINE OPERATOR, PERFORATING MACHINE OPERATOR-C Primary care physician Active Start: February 27, 2025 Dr. Mena Duggan MD Attending physician Active Start: February 27, 2025 Team Status: Inactive Member Role/Relationship Status Dates Silvana Ward PERFORATING MACHINE OPERATOR, PERFORATING MACHINE OPERATOR-C Primary care physician Active Start: March 08, 2025 End: March 08, 2025 Dr. Jacinto Smith DO Attending physician Active Start: March 08, 2025 End: March 08, 2025 Dr. Jacinto Smith DO Referring Provider Active Start: March 08, 2025 End: March 08, 2025 Team Status: Active Member Role/Relationship Status Dates Silvana Ward PERFORATING MACHINE OPERATOR, PERFORATING MACHINE OPERATOR-C Primary care physician Active Start: March 08, 2025 End: March 08, 2025 Dr. Charles Sherwood MD Attending physician Active Start: March 08, 2025 End: March 08, 2025 Dr. Jacinto Smith DO Referring Provider Active Start: March 08, 2025 End: March 08, 2025 Team Status: Active Member Role/Relationship Status Dates Silvana Ward PERFORATING MACHINE OPERATOR, PERFORATING MACHINE OPERATOR-C Primary care physician Active Start: March 09, 2025 Health Risk Assessment Attending physician Active Start: March 09, 2025 Health Risk Assessment Referring Provider Active Start: March 09, 2025 Team Status: Inactive Member Role/Relationship Status Dates Silvana Ward PERFORATING MACHINE OPERATOR, PERFORATING MACHINE OPERATOR-C Primary care physician Active Start: April 05, 2025 End: April 05, 2025 Dr. Jacinto Smith DO Attending physician Active Start: April 05, 2025 End: April 05, 2025 Dr. Jacinto Smith DO Referring Provider Active Start: April 05, 2025 End: April 05, 2025 Team Status: Inactive Member Role/Relationship Status Dates Silvana Ward PERFORATING MACHINE OPERATOR, PERFORATING MACHINE OPERATOR-C Primary care physician Active Start: May 25, 2025 End: May 25, 2025 Silvana Ward PERFORATING MACHINE OPERATOR, PERFORATING MACHINE OPERATOR-C Referring Provider Active Start: May 25, 2025 End: May 25, 2025 Dr. Riley Swann MD Attending physician Active Start: May 25, 2025 End: May 25, 2025 Team Status: Active Member Role/Relationship Status Dates Silvana Ward PERFORATING MACHINE OPERATOR, PERFORATING MACHINE OPERATOR-C Primary care physician Active Start: May 28, 2025 CELINE Dominguez Attending physician Active Star t: May 28, 2025 CELINE Dominguez Referring Provider Active Start : May 28, 2025 Team Status: Inactive Member Role/Relationship Status Dates Silvana Ward PERFORATING MACHINE OPERATOR, PERFORATING MACHINE OPERATOR-C Primary care physician Active Start: May 29, 2025 End: May 29, 2025 Dr. Riley Swann MD Attending physician Active Start: May 29, 2025 End: May 29, 2025 Dr. Riley Swann MD Referring Provider Active Start: May 29, 2025 End: May 29, 2025 Team Status: Active Member Role/Relationship Status Dates Silvana Ward PERFORATING MACHINE OPERATOR, PERFORATING MACHINE OPERATOR-C Primary care physician Active Start: May 29, 2025 Dr. Riley Swann MD Attending physician Active Start: May 29, 2025 Dr. Riley Swann MD Referring Provider Active Start: May 29, 2025 Dr. Riley Swann MD Nurse Practitioner Active Start: May 29, 2025 Team Status: Inactive Member Role/Relationship Status Dates Silvana Wadr PERFORATING MACHINE OPERATOR, PERFORATING MACHINE OPERATOR-C Primary care physician Active Start: May 29, 2025 End: May 29, 2025 Dr. Riley Swann MD Attending physician Active Start: May 29, 2025 End: May 29, 2025 Dr. Riley Swann MD Referring Provider Active Start: May 29, 2025 End: May 29, 2025 Team Status: Active Member Role/Relationship Status Dates Silvana Ward PERFORATING MACHINE OPERATOR, PERFORATING MACHINE OPERATOR-C Primary care physician Active Start: May 29, 2025 Dr. Riley Swann MD Attending physician Active Start: May 29, 2025 Dr. Riley Swann MD Referring Provider Active Start: May 29, 2025 Dr. Riley Swann MD Nurse Practitioner Active Start: May 29, 2025 Team Status: Active Member Role/Relationship Status Dates Silvana Haagen PERFORATING MACHINE OPERATOR, PERFORATING MACHINE OPERATOR-C Primary care physician Active Start: June 01, 2025 Silvana Ward PERFORATING MACHINE OPERATOR, PERFORATING MACHINE OPERATOR-C Attending physician Active Start: June 01, 2025 Silvana Haagen PERFORATING MACHINE OPERATOR, PERFORATING MACHINE OPERATOR-C Referring Provider Active Start: June 01, 2025 Team Status: Active Member Role/Relationship Status Dates Silvana Haagen PERFORATING MACHINE OPERATOR, PERFORATING MACHINE OPERATOR-C Primary care physician Active Start: June 01, 2025 CELINE Dominguez Attending physician Active Star t: June 01, 2025 CELINE Dominguez Referring Provider Active Start : June 01, 2025 Team Status: Inactive Member Role/Relationship Status Dates Silvana Haagen PERFORATING MACHINE OPERATOR, PERFORATING MACHINE OPERATOR-C Primary care physician Active Start: June 04, 2025 End: June 04, 2025 Silvana Haagen PERFORATING MACHINE OPERATOR, PERFORATING MACHINE OPERATOR-C Referring Provider Active Start: June 04, 2025 End: June 04, 2025 Dr. Riley Swann MD Attending physician Active Start: June 04, 2025 End: June 04, 2025 Team Status: Inactive Member Role/Relationship Status Dates Silvana Haagen PERFORATING MACHINE OPERATOR, PERFORATING MACHINE OPERATOR-C Primary care physician Active Start: June 04, 2025 End: June 04, 2025 Silvana Haagen PERFORATING MACHINE OPERATOR, PERFORATING MACHINE OPERATOR-C Referring Provider Active Start: June 04, 2025 End: June 04, 2025 Dr. Riley Swann MD Attending physician Active Start: June 04, 2025 End: June 04, 2025 Team Status: Active Member Role/Relationship Status Dates Silvana Haagen PERFORATING MACHINE OPERATOR, PERFORATING MACHINE OPERATOR-C Primary care physician Active Start: June 05, 2025 CELINE Dominguez Attending physician Active Star t: June 05, 2025 CELINE Dominguez Referring Provider Active Start : June 05, 2025 Team Status: Active Member Role/Relationship Status Dates Silvana Hafatimah PERFORATING MACHINE OPERATOR, PERFORATING MACHINE OPERATOR-C Primary care physician Active Start: June 06, 2025 Dr. Caden Cabezas DO Emergency Departme nt Physician Active Start: June 06, 2025 Dr. Riley Swann MD Admitting physician Active Start: June 06, 2025 Dr. Riley Swann MD Attending physician Active Start: June 06, 2025 Team Status: Inactive Member Role/Relationship Status Dates Silvana Hafatimah PERFORATING MACHINE OPERATOR, PERFORATING MACHINE OPERATOR-C Primary care physician Active Start: June 06, [...] Active Member Role/Relationship Status Dates Silvana Ward PERFORATING MACHINE OPERATOR, PERFORATING MACHINE OPERATOR-C Primary care physician Active Start: June 06, 2025 Dr. Caden Cabezas DO Emergency Department Physician A ctive Start: June 06, 2025 Dr. Riley Swann MD Admitting physician Active Start: June 06, 2025 Dr. Riley Swann MD Attending physician Active Start: June 06, 2025 Dr. Riley Swann MD Nurse Practitioner Active Start: June 06, 2025 Team Status: Active Member Role/Relationship Status Dates Silvana Ward PERFORATING MACHINE OPERATOR, PERFORATING MACHINE OPERATOR-C Primary care physician Active Start: June 07, 2025 Dr. Caden Cabezas DO Emergency Departme nt Physician Active Start: June 07, 2025 Dr. Riley Swann MD Admitting physician Active Start: June 07, 2025 Dr. Riley Swann MD Nurse Practitioner Active Start: June 07, 2025 Dr. Madina Foss MD Attending physician Active Start: June 07, 2025 Team Status: Inactive Member Role/Relationship Status Dates Silvana Ward PERFORATING MACHINE OPERATOR, PERFORATING MACHINE OPERATOR-C Primary care physician Active Start: June 08, 2025 End: June 08, 2025 Silvana Ward PERFORATING MACHINE OPERATOR, PERFORATING MACHINE OPERATOR-C Referring Provider Active Start: June 08, 2025 End: June 08, 2025 Dr. Madina Foss MD Attending physician Active Start: June 08, 2025 End: June 08, 2025 Team Status: Inactive Member Role/Relationship Status Dates Silvana Haagen PERFORATING MACHINE OPERATOR, PERFORATING MACHINE OPERATOR-C Primary care physician Active Start: June 01, 2025 End: June 01, 2025 Silvana Ward PERFORATING MACHINE OPERATOR, PERFORATING MACHINE OPERATOR-C Attending physician Active Start: June 01, 2025 End: June 01, 2025 Silvana Ward PERFORATING MACHINE OPERATOR, PERFORATING MACHINE OPERATOR-C Referring Provider Active Start: June 01, 2025 End: June 01, 2025 Team Status: Inactive Member Role/Relationship Status Dates Silvana Haagen PERFORATING MACHINE OPERATOR, PERFORATING MACHINE OPERATOR-C Primary care physician Active Start: June 06, 2025 End: June 07, 2025 Dr. Caden Cabezas DO Emergency Departme nt Physician Active Start: June 06, 2025 End: June 07, 2025 Dr. Riley Swann MD Admitting physician Active Start: June 06, 2025 End: June 07, 2025 Dr. Riley wSann MD Attending physician Active Start: June 06, 2025 End: June 07, 2025 Team Status: Active Member Role/Relationship Status Dates Silvana Ward PERFORATING MACHINE OPERATOR, PERFORATING MACHINE OPERATOR-C Primary care physician Active Start: June 06, 2025 Dr. Be Padilla MD Attending physician Active Start: June 06, 2025 Dr. Pasquale Lo MD Referring Provider Active Start: June 06, 2025 Team Status: Inactive Member Role/Relationship Status Dates Silvana Ward PERFORATING MACHINE OPERATOR, PERFORATING MACHINE OPERATOR-C Primary care physician Active Start: June 13, 2025 End: June 13, 2025 Silvana Ward PERFORATING MACHINE OPERATOR, PERFORATING MACHINE OPERATOR-C Referring Provider Active Start: June 13, 2025 End: June 13, 2025 Sheila BERGER PA-C Attending physician Active Start: June 13, 2025 End: June 13, 2025 Team Status: Inactive Member Role/Relationship Status Dates Silvana Ward PERFORATING MACHINE OPERATOR, PERFORATING MACHINE OPERATOR-C Primary care physician Active Start: June 20, 2025 End: June 20, 2025 Silvana Ward PERFORATING MACHINE OPERATOR, PERFORATING MACHINE OPERATOR-C Referring Provider Active Start: June 20, 2025 End: June 20, 2025 Dr. Riley Swann MD Attending physician Active Start: June 20, 2025 End: June 20, 2025 Team Status: Active Member Role/Relationship Status Dates Silvana Ward PERFORATING MACHINE OPERATOR, PERFORATING MACHINE OPERATOR-C Primary care physician Active Start: June 22, 2025 CELINE Dominguez Attending physician Active Star t: June 22, 2025 CELINE Dominguez Referring Provider Active Start : June 22, 2025 Team Status: Active Member Role/Relationship Status Dates Silvana Ward PERFORATING MACHINE OPERATOR, PERFORATING MACHINE OPERATOR-C Primary care physician Active Start: June 26, 2025 CELINE Dominguez Attending physician Active Star t: June 26, 2025 CELINE Dominguez Referring Provider Active Start : June 26, 2025 Team Status: Inactive Member Role/Relationship Status Dates Silvana Ward PERFORATING MACHINE OPERATOR, PERFORATING MACHINE OPERATOR-C Primary care physician Active Start: April 05, 2025 End: April 05, 2025 Dr. Jacinto Smith DO Attending physician Active Start: April 05, 2025 End: April 05, 2025 Dr. Jacinto Smith DO Referring Provider Active Start: April 05, 2025 End: April 05, 2025 Team Status: Inactive Member Role/Relationship Status Dates Silvana Ward PERFORATING MACHINE OPERATOR, PERFORATING MACHINE OPERATOR-C Primary care physician Active Start: May 25, 2025 End: May 25, 2025 Silvana Ward PERFORATING MACHINE OPERATOR, PERFORATING MACHINE OPERATOR-C Referring Provider Active Start: May 25, 2025 End: May 25, 2025 Dr. Riley Swann MD Attending physician Active Start: May 25, 2025 End: May 25, 2025 Team Status: Inactive Member Role/Relationship Status Dates Silvana Ward PERFORATING MACHINE OPERATOR, PERFORATING MACHINE OPERATOR-C Primary care physician Active Start: May 29, 2025 End: May 29, 2025 Dr. Riley Swann MD Attending physician Active Start: May 29, 2025 End: May 29, 2025 Dr. Riley Swann MD Referring Provider Active Start: May 29, 2025 End: May 29, 2025 Team Status: Active Member Role/Relationship Status Dates Silvana Ward PERFORATING MACHINE OPERATOR, PERFORATING MACHINE OPERATOR-C Primary care physician Active Start: May 29, 2025 Dr. Riley Swann MD Attending physician Active Start: May 29, 2025 Dr. Riley Swann MD Referring Provider Active Start: May 29, 2025 Dr. Riley Swann MD Nurse Practitioner Active Start: May 29, 2025 Team Status: Inactive Member Role/Relationship Status Dates Silvana Ward PERFORATING MACHINE OPERATOR, PERFORATING MACHINE OPERATOR-C Primary care physician Active Start: June 01, 2025 End: June 01, 2025 Silvana Ward PERFORATING MACHINE OPERATOR, PERFORATING MACHINE OPERATOR-C Attending physician Active Start: June 01, 2025 End: June 01, 2025 Silvana Ward PERFORATING MACHINE OPERATOR, PERFORATING MACHINE OPERATOR-C Referring Provider Active Start: June 01, 2025 End: June 01, 2025 Team Status: Inactive Member Role/Relationship Status Dates Silvana Ward PERFORATING MACHINE OPERATOR, PERFORATING MACHINE OPERATOR-C Primary care physician Active Start: June 04, 2025 End: June 04, 2025 Silvana Ward PERFORATING MACHINE OPERATOR, PERFORATING MACHINE OPERATOR-C Referring Provider Active Start: June 04, 2025 End: June 04, 2025 Dr. Riley Swann MD Attending physician Active Start: June 04, 2025 End: June 04, 2025 Team Status: Inactive Member Role/Relationship Status Dates Silvana Ward PERFORATING MACHINE OPERATOR, PERFORATING MACHINE OPERATOR-C Primary care physician Active Start: June 06, [...] Active Member Role/Relationship Status Dates Silvana Ward PERFORATING MACHINE OPERATOR, PERFORATING MACHINE OPERATOR-C Primary care physician Active Start: June 06, 2025 Dr. Be Padilla MD Attending physician Active Start: June 06, 2025 Dr. Pasquale Lo MD Referring Provider Active Start: June 06, 2025 Team Status: Active Member Role/Relationship Status Dates Silvana Ward PERFORATING MACHINE OPERATOR, PERFORATING MACHINE OPERATOR-C Primary care physician Active Start: June 06, 2025 Dr. Caden Cabezas DO Emergency Department Physician A ctive Start: June 06, 2025 Dr. Riley Swann MD Admitting physician Active Start: June 06, 2025 Dr. Riley Swann MD Attending physician Active Start: June 06, 2025 Dr. Riley Swann MD Nurse Practitioner Active Start: June 06, 2025 Team Status: Active Member Role/Relationship Status Dates Silvana Ward PERFORATING MACHINE OPERATOR, PERFORATING MACHINE OPERATOR-C Primary care physician Active Start: June 07, [...] Inactive Member Role/Relationship Status Dates Silvana Ward PERFORATING MACHINE OPERATOR, PERFORATING MACHINE OPERATOR-C Primary care physician Active Start: June 08, 2025 End: June 08, 2025 Silvana Ward PERFORATING MACHINE OPERATOR, PERFORATING MACHINE OPERATOR-C Referring Provider Active Start: June 08, 2025 End: June 08, 2025 Dr. Madina Foss MD Attending physician Active Start: June 08, 2025 End: June 08, 2025 Team Status: Inactive Member Role/Relationship Status Dates Silvana Ward PERFORATING MACHINE OPERATOR, PERFORATING MACHINE OPERATOR-C Primary care physician Active Start: June 13, 2025 End: June 13, 2025 Silvana Ward PERFORATING MACHINE OPERATOR, PERFORATING MACHINE OPERATOR-C Referring Provider Active Start: June 13, 2025 End: June 13, 2025 Sheila BERGER, PA-C Attending physician Active Start: June 13, 2025 End: June 13, 2025 Team Status: Inactive Member Role/Relationship Status Dates Silvana Ward PERFORATING MACHINE OPERATOR, PERFORATING MACHINE OPERATOR-C Primary care physician Active Start: June 20, 2025 End: June 20, 2025 Silvana Ward PERFORATING MACHINE OPERATOR, PERFORATING MACHINE OPERATOR-C Referring Provider Active Start: June 20, 2025 End: June 20, 2025 Dr. Riley Swann MD Attending physician Active Start: June 20, 2025 End: June 20, 2025 Team Status: Inactive Member Role/Relationship Status Dates Silvana Ward PERFORATING MACHINE OPERATOR, PERFORATING MACHINE OPERATOR-C Primary care physician Active Start: July 03, 2025 End: July 03, 2025 Silvana Ward PERFORATING MACHINE OPERATOR, PERFORATING MACHINE OPERATOR-C Referring Provider Active Start: July 03, 2025 End: July 03, 2025 Dr. Riley Swann MD Attending physician Active Start: July 03, 2025 End: July 03, 2025 Team Status: Active Member Role/Relationship Status Dates Silvana Ward NP, PERFORATING MACHINE OPERATOR-C Primary care physician Active Start: July 11, [...] section and content) DATE CREATED AUTHOR 04/17/2025 [facility] DATE CREATED AUTHOR AUTHOR'S ESAU CHAIDEZ 07/11/2025 [facility] FOR RECORDS PERTAINING TO PATIENTS WHO ARE [...] BE BASED ON THE PRIMARY CLINICAL RECORDS. [facility] [employer] [facility] provides no warranty or guarantee of the accuracy or completeness of information in this document.
[2025-07-27 08:07] LABS: Creatinine, Urine (random) 166.00 mg/dL (28.00-217.00)
[2025-07-27 12:40] LABS: AST(SGOT) 32 U/L (<=31); Alanine Aminotransfer ALT/SGPT 38 U/L (<=34); Albumin, Serum 4.4 g/dL (3.5-5.0); Alkaline Phosphatase 82 U/L (35-104); Anion Gap 13 (5-15); BUN 17 mg/dL (4-19); BUN/Creat Ratio 19.5 RATIO (10-20); Calcium,Total 10.0 mg/dL (7.6-11.0); Carbon Dioxide 22.7 mmol/L (21.0-32.0); Chloride 102 mmol/L (98-108); Cholesterol 199 mg/dL (<=200); Globulin 2.9 g/dL (2.2-4.2); Glucose 111 mg/dL (70-99); Low Density Lipoprotein Calc. 106 mg/dL; Potassium 4.4 mmol/L (3.3-5.1); Triglycerides 317 mg/dL; Very Low Density Lipoprotein 63 mg/dL (5-40); cholesterol:hdl ratio screen 5.17
[2025-07-28 09:34] LABS: Microalbumin,Random Urine 12.2 mg/L (<20 mg/L)
== END | disposition home or self-care (01) ==
LOC: LAB 06:45
PROVIDERS: PCP Registered Nurse; Referring Provider Registered Nurse; Visit Provider Registered Nurse
DX: E78.1 Pure hyperglyceridemia (principal); E11.9 Type 2 diabetes mellitus without complications
CPT/HCPCS: 36415; 80053; 80061; 82043; 82570; 83036